=== PATIENT | male | born 1935 | race Caucasian/White ===

== ENCOUNTER → 2016-05-15 | Outpatient (CLI) | payer BC ==
[~2016-05-15] MED LIST: ASPCH81X PO; BCTCR/30 EX; CALC600T9; CALC600T9 PO; KETO2CRE14 EXT; LISI-725 PO; MULT-884 PO
[2016-05-15 09:01] LABS: BLOOD UREA NITROGEN 27 mg/dl (7-18); BUN/CREATININE RATIO 22.4 (10-20); CALCIUM 9.5 mg/dl (8.5-10.1); CARBON DIOXIDE 24 mmol/L (21-32); CHLORIDE 108 mmol/L (98-107); GLUCOSE 93 mg/dl (70-99); HEMATOCRIT 42.4 % (42-52); MEAN CELL VOLUME 95.1 fL (80-100); MEAN CORPUSCULAR HEMOGLOBIN 32.1 pg (25-34); MEAN CORPUSCULAR HGB CONC 33.7 g/dl (32-36); MEAN PLATELET VOLUME 10.8 fL (7.4-10.4); PLATELET COUNT 220 K/uL (130-400); RED BLOOD COUNT 4.46 M/uL (4.7-6.1); SODIUM 141 mmol/L (136-145); WHITE BLOOD COUNT 7.13 K/uL (4.8-10.8)
== END | disposition home or self-care (01) ==
LOC: C.LABFOXMH 08:23
PROVIDERS: ATTEND Internal Medicine
DX: N18.3 Chronic kidney disease, stage 3 (moderate) (principal)

== ENCOUNTER → 2016-10-10 | Outpatient (CLI) | payer BC ==
[2016-10-10 09:20] LABS: BLOOD UREA NITROGEN 19 mg/dl (7-18); BUN/CREATININE RATIO 14.9 (10-20); CALCIUM 9.5 mg/dl (8.5-10.1); CARBON DIOXIDE 26 mmol/L (21-32); CHLORIDE 108 mmol/L (98-107); GLUCOSE 88 mg/dl (70-99); POTASSIUM 4.6 mmol/L (3.5-5.1); SODIUM 139 mmol/L (136-145)
== END | disposition home or self-care (01) ==
LOC: C.LABFOXMH 08:36
PROVIDERS: ATTEND Internal Medicine
DX: I10 Essential (primary) hypertension (principal); R35.0 Frequency of micturition

== ENCOUNTER → 2017-02-10 | Outpatient (CLI) | payer BC | END | disposition home or self-care (01) | LOC: C.LABFOXMH 09:11 | PROVIDERS: ATTEND Nurse Practitioner Family | DX: R97.20 Elevated prostate specific antigen [PSA] (principal) ==

== ENCOUNTER → 2017-05-08 | Outpatient (CLI) | payer BC | END | disposition home or self-care (01) | LOC: C.LABSPEC 17:13 | PROVIDERS: ATTEND Physician Assistant | DX: Z85.828 Personal history of other malignant neoplasm of skin (principal) ==

== ENCOUNTER → 2017-05-15 | Outpatient (CLI) | payer BC ==
[2017-05-15 08:52] LABS: BLOOD UREA NITROGEN 23 mg/dl (7-18); CALCIUM 9.5 mg/dl (8.5-10.1); CARBON DIOXIDE 27 mmol/L (21-32); CREATININE 1.29 mg/dl (0.60-1.40); GLUCOSE 105 mg/dl (70-99); POTASSIUM 4.5 mmol/L (3.5-5.1); SODIUM 137 mmol/L (136-145)
== END | disposition home or self-care (01) ==
LOC: C.LABFOXMH 08:13
PROVIDERS: ATTEND Internal Medicine Hospice and Palliative Medicine
DX: R97.20 Elevated prostate specific antigen [PSA] (principal)

== ENCOUNTER → 2017-11-04 | Outpatient (CLI) | payer BC ==
--- NOTE | 2017-11-04 13:57 | DIAGNOSTIC IMAGING REPORT ---
L-SPINE MIN 4 VIEWS ROUTINE HISTORY: Pain LOW BACK PAIN COMPARISON: None. FINDINGS: There is no fracture. Significant degenerative disc change throughout. Moderate anterior and anterolateral osteophytic change throughout. IMPRESSION: Degenerative change throughout the entire lumbar region. No acute bony abnormality. The above report was generated using voice recognition software. It may contain grammatical, syntax or spelling errors. Electronically signed by: Sánchez Carlson M.D. 11/04/2017 1:55 PM Dictated Date/Time: 11/04/2017 1:54 PM
== END | disposition home or self-care (01) ==
LOC: C.RAD 13:28
PROVIDERS: ATTEND Internal Medicine
DX: M47.816 Spondylosis without myelopathy or radiculopathy, lumbar region (principal)

== ENCOUNTER 2019-06-02 18:23 | Inpatient (IN) ==
[2019-06-02] MEDS ORDERED: SODIUM CHLORIDE 0.9% 1000ML 1,000 ML IV ONE (18:56)
[2019-06-02] MEDS ORDERED: ALBUT/IPRATROP 3MG/0.5MG NEB 3 ML VIAL NEB ONE (18:56)
--- NOTE | 2019-06-02 19:12 | XRay Report ---
XR chest 1V portable CLINICAL HISTORY: SEPSIS dyspnea COMPARISON STUDY: 06/02/2019 FINDINGS: Interstitial parenchymal infiltrative changes left mid to lower lung. Several old left-side d rib fractures. Right lung is clear. There are no consolidative infiltrative changes. IMPRESSION: Interstitial infiltrate left lung base. ACT 112: Negative or not required by law. The above report was generated using voice recognition software. It may contain grammatical, syntax or spelling errors. Electronically signed by: Sánchez Carlson M.D. 06/02/2019 7:11 PM
[2019-06-02 19:55] LABS: Basophils # (auto) 0.01 K/uL (0-0.2); Basophils % (auto) 0.1 %; Eosinophils # (auto) 0.22 K/uL (0-0.5); Eosinophils % (auto) 2.8 %; Hematocrit (blood only) 38.7 % (42-52); Hemoglobin 12.7 g/dL (14.0-18.0); Immature Granulocytes # (auto) 0.06 K/uL (0.00-0.02); Immature Granulocytes % (auto) 0.8 %; Lymphocytes # (auto) 1.26 K/uL (1.2-3.4); Lymphocytes % (auto) 16.3 %; Mean Corpuscular Hgb Conc 32.8 g/dL (32-36); Mean Corpuscular Volume 94.4 fL (80-100); Mean Platelet Volume 10.8 fL (7.4-10.4); Monocytes # (auto) 0.77 K/uL (0.11-0.59); Monocytes % (auto) 9.9 %; Neutrophils # (auto) 5.42 K/uL (1.4-6.5); Neutrophils % (auto) 70.1 %; Platelet Count 277 K/uL (130-400); RDW Coefficient of Variation 13.6 % (11.5-14.5); White Blood Count 7.74 K/uL (4.8-10.8)
[2019-06-02 19:58] LABS: Alanine Aminotransferase 20 U/L (12-78); Albumin Level 3.2 gm/dl (3.4-5.0); Aspartate Aminotransferase 13 U/L (15-37); BUN Creatinine Ratio 17.6 (10-20); Blood Urea Nitrogen 29 mg/dl (7-18); Calcium 9.6 mg/dl (8.5-10.1); Carbon Dioxide 27 mmol/L (21-32); Chloride 107 mmol/L (98-107); Creatinine Clr Calc Pharmacy 33.5 ml/min; Est GFR (African American) 43.2; Est GFR (Non-African American) 37.3; Glucose 109 mg/dl (70-99); Magnesium 2.4 mg/dl (1.8-2.4); Potassium 4.1 mmol/L (3.5-5.1); Sodium 139 mmol/L (136-145)
[2019-06-02 20:06] LABS: Albumin Globulin Ratio 0.9 (0.9-2); Alkaline Phosphatase 74 U/L (45-117); Bilirubin,Total 0.9 mg/dl (0.2-1); Globulin 3.6 gm/dl (2.5-4.0); Total Protein 6.8 gm/dl (6.4-8.2); Troponin I < 0.015 ng/ml (0-0.045)
[2019-06-02 20:13] LABS: Influenza A virus by PCR Neg for Influ A (Neg); Influenza B virus by PCR Neg for Influ B (Neg)
[2019-06-02] MEDS ORDERED: OPTIRAY 320 125ml IV PRN (20:13)
[2019-06-02 20:15] LABS: INR 1.1 (0.9-1.1); Partial Thromboplastin Ratio 0.9; Partial Thromboplastin Time 23.6 Seconds (21.0-31.0); Prothrombin Time 10.8 Seconds (9.0-12.0)
--- NOTE | 2019-06-02 20:31 | CT Scan Report ---
CT angio chest PE protocol CT DOSE: 334.49 mGy.cm HISTORY: Chest pain. Dyspnea. Cough. PE TECHNIQUE: Multiaxial CT images of the chest were performed following the intravenous administration of contrast to evaluate the pulmonary arteries. Maximal intensity projection images were also obtaine d. A dose lowering technique was utilized adhering to the principles of ALARA. COMPARISON STUDY: None. FINDINGS: Slight prominence of the aortic root at 3.8 cm. No evidence for dissection. The pulmonary vasculature enhances appropriately. There are no major filling defects. Evaluation of t he lung parenchyma shows mild bibasilar atelectatic and/or infiltrative change. There is mild interst itial prominence of the right upper as well as left upper lobe medially anterior to the major fissure . There are no true consolidative infiltrates. There are moderate degenerative changes of the thoracic spine. IMPRESSION: 1. No evidence for pulmonary embolus. 2. Mild bibasilar parenchymal infiltrative and/or atelectatic change. 3. Minimal interstitial infiltrative changes of the upper lungs. 4. There are no consolidative infiltrates. ACT 112: Negative or not required by law. The above report was generated using voice recognition software. It may contain grammatical, syntax or spelling errors. Electronically signed by: Sánchez Carlson M.D. 06/02/2019 8:29 PM
[2019-06-02] MEDS ORDERED: LEVOFLOXACIN/D5W 750 MG/150 ML BAG IV STA (20:43)
--- NOTE | 2019-06-02 21:55 | History & Physical Report ---
Date of Service June 02, 2019 Assessment & Plan (1) Pneumonia: Bibasilar pneumonia- Placed on ceftriaxone 1 g IV daily and levofloxacin 500 mg IV daily. Duonebs every 4 hours while awake and every 2 hours when necessary. Solu-Medrol 40 mg IV every 8 hours. Guaifenesin extended release 600 mg p.o. twice daily Sputum Gram stain and culture Present on Admission?: Yes (2) Hypertension: Hold lisinopril. Present on Admission?: Yes (3) BPH w urinary obs/LUTS: Continue finasteride and tamsulosin.. Present on Admission?: Yes History of Present Illness Chief Complaint: The patient presents to the emergency department with 2 weeks of progressively worsening cough and shortness of breath, being referred by his PCP to the ED when he called and reported symptoms today. Primary Care Provider: Tamiko Carmona The patient is a 83-year-old male with a past medical history including hypertension, BPH with LUTS, squamous cell skin cancer, and basal cell skin skin cancer. He presents to the emergency department with 2 weeks of progressively worsening cough and shortness of breath. He was referred to the ED by his PCP when informed of the patient's symptoms. Allergies Allergy/AdvReac Type Severity Reaction Status Date / Time No Known Allergies Allergy Verified 06/02/19 19:23 Home Medications Home Medications Medication Instructions Recorded Confirmed Type cholecalciferol (vitamin D3) 50 2,000 unit PO QAM tab 10/22/18 06/02/19 History mcg (2,000 unit) tablet finasteride 5 mg tablet 5 mg PO QAM #90 tab 05/28/19 06/02/19 History aspirin 81 mg PO DAILY 06/02/19 06/02/19 History lisinopril 5 mg PO QAM 06/02/19 06/02/19 History magnesium 200 mg PO HS 06/02/19 06/02/19 History tamsulosin 0.4 mg PO HS 06/02/19 06/02/19 History Past Med/Surg History Medical History History of basal cell carcinoma History of SCC (squamous cell carcinoma) of skin Social History Preferred Language: Bulgarian Communication Ability: Effective Correctional Classification Counselor Required: No Beliefs That Will Affect Care: None Current Living Situation: Spouse Other Information That Helps Us Care for You: No Feels Safe at Home: Yes Safety Concerns: Feels Safe At This Time Smoking Status: Former smoker Tobacco Type: cigarettes and pipe ; Hx Alcohol Use: Yes Alcohol type: beer, wine and hard liquor Hx Substance Use: No Review of Systems Review of Systems: The patient denies chest pain, palpitations, lower extremity swelling, sore throat, fevers, chills, sweats, nausea, vomiting, diarrhea , constipation, abdominal pain, pelvic pain, blood in urine or stool, dysuria, urinary frequency or urgency, lightheadedness, dizziness, headache, memory loss, loss of consciousness, rash, abnormal bruising or bleeding, imbalance, focal or generalized weakness, numbness or tingling in arms or legs, generalized arthralgias or myalgias, back or neck pain, or night sweats. The review of systems is otherwise negative other than for that already noted above, and at least 10 systems have been reviewed. Physical Exam Physical Exam: The patient is awake, alert and oriented 3, well developed and well nourished, normocephalic and atraumatic, lying in bed and in no acute distress. HEENT--PERRL, EOMI, mucous membranes and oropharynx dry. Neck--supple. No JVD. No bruits. Thyroid normal, trachea midline, no adenopathy. Heart--normal S1 and S2. No murmurs, rubs or gallops. Lungs--coarse breath sounds bilaterally with scattered wheezes. No respiratory distress, no accessory muscle use. Abdomen--normal bowel sounds and soft. Nontender. Nondistended, no hernias or masses, no organomegaly. Extremities--no cyanosis or clubbing. No edema. There are good distal pulses b/l. Dermatologic--normal skin turgor, normal color, no abnormal lymph nodes, no rash. Neurologic--cranial nerves II through XII grossly intact. Rheumatologic--normal range of motion. Psychiatric--normal affect. Results & Data Vital Signs (Past 12 Hours) Vital Signs Temp Pulse Pulse Resp BP BP Pulse Ox 06/02/19 20:25 101 H 21 154/82 H 99 06/02/19 19:57 88 21 136/70 98 06/02/19 19:36 75 22 94 06/02/19 19:31 75 19 119/84 97 06/02/19 18:28 98.2 F 68 20 131/67 96 Laboratory Results Laboratory Results WBC 7.74 K/uL (4.8-10.8) 06/02/19 19:10 RBC 4.10 M/uL (4.7-6.1) L 06/02/19 19:10 Hgb 12.7 g/dL (14.0-18.0) L 06/02/19 19:10 Hct 38.7 % (42-52) L 06/02/19 19:10 MCV 94.4 fL (80-100) 06/02/19 19:10 MCH 31.0 pg (25-34) 06/02/19 19:10 MCHC 32.8 g/dL (32-36) 06/02/19 19:10 RDW Std Deviation 47.0 fL (36.4-46.3) H 06/02/19 19:10 RDW Coeff of Ramy 13.6 % (11.5-14.5) 06/02/19 19:10 Plt Count 277 K/uL (130-400) 06/02/19 19:10 MPV 10.8 fL (7.4-10.4) H 06/02/19 19:10 Immature Gran % (Auto) 0.8 % 06/02/19 19:10 Neut % (Auto) 70.1 % 06/02/19 19:10 Lymph % (Auto) 16.3 % 06/02/19 19:10 [place] % (Auto) 9.9 % 06/02/19 19:10 Eos % (Auto) 2.8 % 06/02/19 19:10 Baso % (Auto) 0.1 % 06/02/19 19:10 Immature Gran # (Auto) 0.06 K/uL (0.00-0.02) H 06/02/19 19:10 Neut # (Auto) 5.42 K/uL (1.4-6.5) 06/02/19 19:10 Lymph # (Auto) 1.26 K/uL (1.2-3.4) 06/02/19 19:10 [place] # (Auto) 0.77 K/uL (0.11-0.59) H 06/02/19 19:10 Eos # (Auto) 0.22 K/uL (0-0.5) 06/02/19 19:10 Baso # (Auto) 0.01 K/uL (0-0.2) 06/02/19 19:10 PT 10.8 Seconds (9.0-12.0) 06/02/19 19:10 INR 1.1 (0.9-1.1) 06/02/19 19:10 APTT 23.6 Seconds (21.0-31.0) 06/02/19 19:10 PTT Ratio 0.9 06/02/19 19:10 Sodium 139 mmol/L (136-145) 06/02/19 19:10 Potassium 4.1 mmol/L (3.5-5.1) 06/02/19 19:10 Chloride 107 mmol/L (98-107) 06/02/19 19:10 Carbon Dioxide 27 mmol/L (21-32) 06/02/19 19:10 Anion Gap 5.0 (3-11) 06/02/19 19:10 BUN 29 mg/dl (7-18) H 06/02/19 19:10 Creatinine 1.67 mg/dl (0.6-1.4) H 06/02/19 19:10 Est Cr Clr Drug Dosing 33.5 ml/min 06/02/19 19:10 Est GFR ( Amer) 43.2 06/02/19 19:10 Est GFR (Non-Af Amer) 37.3 06/02/19 19:10 BUN/Creatinine Ratio 17.6 (10-20) 06/02/19 19:10 Glucose 109 mg/dl (70-99) H 06/02/19 19:10 Lactate 1.7 mmol/L (0.4-2.0) 06/02/19 19:20 Calcium 9.6 mg/dl (8.5-10.1) 06/02/19 19:10 Magnesium 2.4 mg/dl (1.8-2.4) 06/02/19 19:10 Total Bilirubin 0.9 mg/dl (0.2-1) 06/02/19 19:10 AST 13 U/L (15-37) L 06/02/19 19:10 ALT 20 U/L (12-78) 06/02/19 19:10 Alkaline Phosphatase 74 U/L (45-117) 06/02/19 19:10 Troponin I < 0.015 ng/ml (0-0.045) 06/02/19 19:10 Total Protein 6.8 gm/dl (6.4-8.2) 06/02/19 19:10 Albumin 3.2 gm/dl (3.4-5.0) L 06/02/19 19:10 Globulin 3.6 gm/dl (2.5-4.0) 06/02/19 19:10 Albumin/Globulin Ratio 0.9 (0.9-2) 06/02/19 19:10 Procalcitonin 0.46 ng/ml (0-0.5) 06/02/19 19:10 Influenza Type A (PCR) Neg for Influ A (Neg) 06/02/19 19:17 Influenza Type B (PCR) Neg for Influ B (Neg) 06/02/19 19:17 Diagnostic Findings [place], [place] [phone] XRay Report Patient: ROLANDA TELLO Date: 06/02/19 MR#: [id number]: [address] Acct ID:[id number]: [place] [facility] Zip[facility] [place] [address] Age: 83Location: RAD1 Sex: M Room/Bed: Att Phy: Briana Hill CRNPDiagnosis: R53.83, COUGH Bella Phy: Estelle Kwonervice Date: 06/02/19 Fam Phy:Interpreting Phy: Carlos Manuel Razo MD Admit Phy: Ordering Phy: Briana Hill CRNP cc: ~ XR chest 2V PA/lateral CLINICAL HISTORY: COUGH FATIGUE COMPARISON STUDY: None FINDINGS: The heart is normal in size. There is no failure. There is no lobar consolidation. There are old left-sided rib deformities. There is minor blunting of the lateral costophrenic angles. Slight increase in markings visualized towards the left lung base, may represent a summation with underlying rib deformities.[ IMPRESSION: 1. Nonspecific subtle increase in left mid to lower lung zone markings a finding which may represent a summation with underlying right rib deformities. 2. No evidence of failure. No evidence of lobar consolidation. ACT 112: Negative or not required by law. Electronically signed by: Carlos Mnauel Razo M.D. 06/02/2019 2:03 PM Dictated: 06/02/19 1400 Transcribed: 06/02/19 1400 [facility] [place] [phone] CT Scan Report Patient: ROLANDA TELLO Date: 06/02/19 MR#: [id number]: [address] Acct ID:[id number]: [facility] Date: [address]City Zip: [place] [address] Age: 83Location: ED Sex: M Room/Bed: Att Phy:Diagnosis: LIGHTHEADED, COUGHING, FEVER Bella Phy: Estelle Kwonervice Date: 06/02/19 Fam Phy:Interpreting Phy: Sánchez Carlson MD Admit Phy: Ordering Phy: Vijay Gandhi MD cc: ~ CT angio chest PE protocol CT DOSE: 334.49 mGy.cm HISTORY: Chest pain. Dyspnea. Cough. PE TECHNIQUE: Multiaxial CT images of the chest were performed following the intravenous administration of contrast to evaluate the pulmonary arteries. Maximal intensity projection images were also obtained. A dose lowering technique was utilized adhering to the principles of ALARA. COMPARISON STUDY: None. FINDINGS: Slight prominence of the aortic root at 3.8 cm. No evidence for dissection. The pulmonary vasculature enhances appropriately. There are no major filling defects. Evaluation of the lung parenchyma shows mild bibasilar atelectatic and/or infiltrative change. There is mild interstitial prominence of the right upper as well as left upper lobe medially anterior to the major fissure. There are no true consolidative infiltrates. There are moderate degenerative changes of the thoracic spine. IMPRESSION: 1. No evidence for pulmonary embolus. 2. Mild bibasilar parenchymal infiltrative and/or atelectatic change. 3. Minimal interstitial infiltrative changes of the upper lungs. 4. There are no consolidative infiltrates. ACT 112: Negative or not required by law. The above report was generated using voice recognition software. It may contain grammatical, syntax or spelling errors. Electronically signed by: Sánchez Carlson M.D. 06/02/2019 8:29 PM Dictated: 06/02/192025 Transcribed: 06/02/192025 [facility] [place] [phone] XRay Report Patient: ROLANDA TELLO Date: 06/02/19 MR#: [id number]: [address] Acct ID:[id number]: [place] [facility] Zip: [place] [address] Age: 83Location: ED Sex: M Room/Bed: Att Phy:Diagnosis: LIGHTHEADED, COUGHING, FEVER Bella Phy: Estelle Kwonervice Date: 06/02/19 Fam Phy:Interpreting Phy: Sánchez Carlson MD Admit Phy: Ordering Phy: Vijay Gandhi MD cc: ~ XR chest 1V portable CLINICAL HISTORY: SEPSIS dyspnea COMPARISON STUDY: 06/02/2019 FINDINGS: Interstitial parenchymal infiltrative changes left mid to lower lung. Several old left-sided rib fractures. Right lung is clear. There are no consolidative infiltrative changes. IMPRESSION: Interstitial infiltrate left lung base. ACT 112: Negative or not required by law. The above report was generated using voice recognition software. It may contain grammatical, syntax or spelling errors. Electronically signed by: Sánchez Carlson M.D. 06/02/2019 7:11 PM Dictated: 06/02/191910 Transcribed: 06/02/191910 Code Status & VTE Plan Code Status Full code VTE Prophylaxis Plan VTE Prophylaxis will be ordered: Yes PG Care Time/CCT Total # of Minutes Spent Total Time Spent with Patient: Total time spent is greater than 50% in coordination of care (as documented) at patient's floor/unit and/or counseling patient: Coding Level of Care Code 93947 Initial Inpt Care Lvl 3 Diagnoses Pneumonia J18.9 Laterality: unspecified laterality Lung location: unspecified part of lung Pneumonia type: due to unspecified organism Hypertension I10 BPH w urinary obs/LUTS N40.1; N13.8 (1) Pneumonia Laterality: unspecified laterality Lung location: unspecified part of lung Pneumonia type: due to unspecified organism Qualified Code(s): J18.9 - Pneumonia, unspecified organism
[2019-06-02] MEDS ORDERED: ALUMINUM/MAGNESIUM SUSP 30 ML UDC PO PRN (23:03)
[2019-06-02] MEDS ORDERED: ACETAMINOPHEN 325 MG TAB PO PRN (23:03)
[2019-06-02] MEDS ORDERED: ONDANSETRON INJ 2 MG/ML 2 ML VIAL IV PRN (23:03)
[2019-06-02] MEDS ORDERED: MAGNESIUM HYDROXIDE SUSP 30 ML UDC PO PRN (23:03)
--- NOTE | 2019-06-02 23:06 | Emergency Department Note ---
History of Present Illness General Chief complaint: Illness Stated complaint: LIGHTHEADED, COUGHING, FEVER Time Seen by Provider: 06/02/19 18:46 Source: patient, family, RN notes reviewed and old records reviewed Mode of arrival: ambulatory Limitations: no limitations History of Present Illness Provider complaint: weakness Onset (ago): week(s) 2 Location: lower extremity Radiation: non-radiation Severity: moderate Associated symptoms: + confusion Treatments prior to arrival: other (Rocephin IM, Prednisone 40) This is an 83-year-old male sent in by his primary care physician's office over concerns that he has been feeling weak. Patient had a chest x-ray as well as laboratory work. He does have an elevation in his white blood cell count as an outpatient however was given Rocephin as well as prednisone. The patient reports he has been feeling weak for the past 2 weeks. He reports a cough that has been ongoing during that time. He has not been taking anything at home but has not been getting any better. Home Medications Home Medications Medication Instructions Recorded Confirmed Type cholecalciferol (vitamin D3) 50 2,000 unit PO QAM tab 10/22/18 06/02/19 History mcg (2,000 unit) tablet finasteride 5 mg tablet 5 mg PO QAM #90 tab 05/28/19 06/02/19 History aspirin 81 mg PO DAILY 06/02/19 06/02/19 History lisinopril 5 mg PO QAM 06/02/19 06/02/19 History magnesium 200 mg PO HS 06/02/19 06/02/19 History tamsulosin 0.4 mg PO HS 06/02/19 06/02/19 History Allergies Allergy/AdvReac Type Severity Reaction Status Date / Time No Known Allergies Allergy Verified 06/02/19 19:23 Past Med/Surg History Medical History History of basal cell carcinoma History of SCC (squamous cell carcinoma) of skin Social History Feels Safe at Home: Yes Smoking Status: Former smoker Review of Systems A total of 10 systems reviewed and were otherwise negative Physical Exam Vital Signs Vital Signs - 24 hr 06/02/19 18:28 06/02/19 19:31 06/02/19 19:36 Temperature 36.8 C Temperature Source Oral Pulse Rate 68 Pulse Rate [Right Finger] 75 75 Respiratory Rate 20 19 22 Respiratory Effort / Characteristics Non-Labored Spontaneous Blood Pressure 131/67 Blood Pressure [Right Arm] 119/84 Blood Pressure Mean 88 Blood Pressure Mean [Right Arm] 95 Blood Pressure Position Sitting Pulse Oximetry 96 97 94 Oxygen Delivery Method Room Air Room Air Sepsis Recent Fever Within 48 Hours No Sepsis Action Taken by Nursing No Action Required 06/02/19 19:57 06/02/19 20:25 Temperature Temperature Source Pulse Rate Pulse Rate [Right Finger] 88 101 H Respiratory Rate 21 21 Respiratory Effort / Characteristics Blood Pressure Blood Pressure [Right Arm] 136/70 154/82 H Blood Pressure Mean Blood Pressure Mean [Right Arm] 92 106 Blood Pressure Position Pulse Oximetry 98 99 Oxygen Delivery Method Nebulizer Nebulizer Sepsis Recent Fever Within 48 Hours Sepsis Action Taken by Nursing GENERAL: Patient is a healthy-appearing well-nourished HEAD: Normocephalic atraumatic EYES: Ocular movements intact pupils equal and react to light OROPHARYNX mucous membranes are moist no exudates present no erythema or edema present NECK: Supple no nuchal rigidity CHEST: Good equal expansion LUNGS: Clear and equal to auscultation CARDIAC: Normal S1 and S2 ABDOMEN: Soft nontender no guarding BACK: No CVA tenderness EXTREMITIES: No pain upon palpation normal muscle strength in all groups no clubbing cyanosis or edema NEURO: Patient is following commands is answering questions appropriately. Alert and oriented x3 Cranial Nerves 2-12 grossly intact Course Administered Medications Ioversol (Optiray 320 125ml) 118 ml IV ONCE PRN PRN Reason: Interaction Checking Stop: 06/06/19 20:12 Last Admin: 06/02/19 20:13 Dose: 118 ml Documented by: [id number] Discontinued Medications Albuterol (Duoneb) 12 ml NEB ONE ONE Stop: 06/02/19 18:57 Last Admin: 06/02/19 19:33 Dose: 12 ml Documented by: [id number] Sodium Chloride (Nss 1000ml) 1,000 mls @ 999 mls/hr IV .Q1H1M ONE Stop: 06/02/19 19:56 Last Infusion: 06/02/19 20:24 Dose: 0 mls/hr Documented by: [id number] Admin: 06/02/19 19:22 Dose: 999 mls/hr Documented by: [id number] Levofloxacin/Dextrose (Levaquin/D5w) 750 mg in 150 mls @ 100 mls/hr IV NOW STA Stop: 06/02/19 22:12 Last Infusion: 06/02/19 22:09 Dose: 0 mls/hr Documented by: [id number] Admin: 06/02/19 20:54 Dose: 100 mls/hr Documented by: [id number] Medical Decision Making Differential Diagnosis My differential diagnosis includes but is not limited to urinary tract in fection, pneumonia, influenza, electrolyte abnormality, Medical Records Attestation: I reviewed the patient's medical records. Home Medications Current Medication List: was personally reviewed by me Laboratory Data Attestation: I reviewed the patient's lab results. Result diagrams: 06/02/19 19:10 06/02/19 19:10 Lab Results 06/02/19 06/02/19 06/02/19 Range/Units 19:10 19:10 19:10 WBC 7.74 (4.8-10.8) K/uL RBC 4.10 L (4.7-6.1) M/uL Hgb 12.7 L (14.0-18.0) g/dL Hct 38.7 L (42-52) % MCV 94.4 (80-100) fL MCH 31.0 (25-34) pg MCHC 32.8 (32-36) g/dL RDW Std Deviation 47.0 H (36.4-46.3) fL RDW Coeff of Ramy 13.6 (11.5-14.5) % Plt Count 277 (130-400) K/uL MPV 10.8 H (7.4-10.4) fL Immature Gran % (Auto) 0.8 % Neut % (Auto) 70.1 % Lymph % (Auto) 16.3 % [place] % (Auto) 9.9 % Eos % (Auto) 2.8 % Baso % (Auto) 0.1 % Immature Gran # (Auto) 0.06 H (0.00-0.02) K/uL Neut # (Auto) 5.42 (1.4-6.5) K/uL Lymph # (Auto) 1.26 (1.2-3.4) K/uL [place] # (Auto) 0.77 H (0.11-0.59) K/uL Eos # (Auto) 0.22 (0-0.5) K/uL Baso # (Auto) 0.01 (0-0.2) K/uL PT 10.8 (9.0-12.0) Seconds INR 1.1 (0.9-1.1) APTT 23.6 (21.0-31.0) Seconds PTT Ratio 0.9 Sodium 139 (136-145) mmol/L Potassium 4.1 (3.5-5.1) mmol/L Chloride 107 (98-107) mmol/L Carbon Dioxide 27 (21-32) mmol/L Anion Gap 5.0 (3-11) BUN 29 H (7-18) mg/dl Creatinine 1.67 H (0.6-1.4) mg/dl Est Cr Clr Drug Dosing 33.5 ml/min Est GFR ( Amer) 43.2 Est GFR (Non-Af Amer) 37.3 BUN/Creatinine Ratio 17.6 (10-20) Glucose 109 H (70-99) mg/dl Lactate (0.4-2.0) mmol/L Calcium 9.6 (8.5-10.1) mg/dl Magnesium 2.4 (1.8-2.4) mg/dl Total Bilirubin 0.9 (0.2-1) mg/dl AST 13 L (15-37) U/L ALT 20 (12-78) U/L Alkaline Phosphatase 74 (45-117) U/L Troponin I < 0.015 (0-0.045) ng/ml Total Protein 6.8 (6.4-8.2) gm/dl Albumin 3.2 L (3.4-5.0) gm/dl Globulin 3.6 (2.5-4.0) gm/dl Albumin/Globulin Ratio 0.9 (0.9-2) Procalcitonin (0-0.5) ng/ml Influenza Type A (PCR) (Neg) Influenza Type B (PCR) (Neg) 06/02/19 06/02/19 06/02/19 Range/Units 19:10 19:17 19:20 WBC (4.8-10.8) K/uL RBC (4.7-6.1) M/uL Hgb (14.0-18.0) g/dL Hct (42-52) % MCV (80-100) fL MCH (25-34) pg MCHC (32-36) g/dL RDW Std Deviation (36.4-46.3) fL RDW Coeff of Ramy (11.5-14.5) % Plt Count (130-400) K/uL MPV (7.4-10.4) fL Immature Gran % (Auto) % Neut % (Auto) % Lymph % (Auto) % [place] % (Auto) % Eos % (Auto) % Baso % (Auto) % Immature Gran # (Auto) (0.00-0.02) K/uL Neut # (Auto) (1.4-6.5) K/uL Lymph # (Auto) (1.2-3.4) K/uL [place] # (Auto) (0.11-0.59) K/uL Eos # (Auto) (0-0.5) K/uL Baso # (Auto) (0-0.2) K/uL PT (9.0-12.0) Seconds INR (0.9-1.1) APTT (21.0-31.0) Seconds PTT Ratio Sodium (136-145) mmol/L Potassium (3.5-5.1) mmol/L Chloride (98-107) mmol/L Carbon Dioxide (21-32) mmol/L Anion Gap (3-11) BUN (7-18) mg/dl Creatinine (0.6-1.4) mg/dl Est Cr Clr Drug Dosing ml/min Est GFR ( Amer) Est GFR (Non-Af Amer) BUN/Creatinine Ratio (10-20) Glucose (70-99) mg/dl Lactate 1.7 (0.4-2.0) mmol/L Calcium (8.5-10.1) mg/dl Magnesium (1.8-2.4) mg/dl Total Bilirubin (0.2-1) mg/dl AST (15-37) U/L ALT (12-78) U/L Alkaline Phosphatase (45-117) U/L Troponin I (0-0.045) ng/ml Total Protein (6.4-8.2) gm/dl Albumin (3.4-5.0) gm/dl Globulin (2.5-4.0) gm/dl Albumin/Globulin Ratio (0.9-2) Procalcitonin 0.46 (0-0.5) ng/ml Influenza Type A (PCR) Neg for Influ A (Neg) Influenza Type B (PCR) Neg for Influ B (Neg) Imaging Data Radiologist's Impression: Patient: ROLANDA TELLO Date: 06/02/19 MR#: [id number]: [address] Acct ID:[id number]: [facility] Zip: [place] [address] Age: 83Location: ED Sex: M Room/Bed: Att Phy:Diagnosis: LIGHTHEADED, COUGHING, FEVER Bella Phy: Estelle Kwonervice Date: 06/02/19 Fam Phy:Interpreting Phy: Sánchez Carlson MD Admit Phy: Ordering Phy: Vijay Gandhi MD cc: ~ CT angio chest PE protocol CT DOSE: 334.49 mGy.cm HISTORY: Chest pain. Dyspnea. Cough. PE TECHNIQUE: Multiaxial CT images of the chest were performed following the intravenous administration of contrast to evaluate the pulmonary arteries. Maximal intensity projection images were also obtained. A dose lowering te chnique was utilized adhering to the principles of ALARA. COMPARISON STUDY: None. FINDINGS: Slight prominence of the aortic root at 3.8 cm. No evidence for dissection. The pulmonary vasculature enhances appropriately. There are no major filling defects. Evaluation of the lung parenchyma shows mild bibasilar atelectatic and/or infiltrative change. There is mild interstitial prominence of the right upper as well as left upper lobe medially anterior to the major fissure. There are no true consolidative infiltrates. There are moderate degenerative changes of the thoracic spine. IMPRESSION: 1. No evidence for pulmonary embolus. 2. Mild bibasilar parenchymal infiltrative and/or atelectatic change. 3. Minimal interstitial infiltrative changes of the upper lungs. 4. There are no consolidative infiltrates. ACT 112: Negative or not required by law. The above report was generated using voice recognition software. It may contain grammatical, syntax or spelling errors. Electronically signed by: Sánchez Carlson M.D. 06/02/2019 8:29 PM Dictated: 06/02/192025 Transcribed: 06/02/192025 [place], [place] [phone] XRay Report Patient: ROLANDA TELLO Date: 06/02/19 MR#: [id number]: [id number] Acct ID:[id number]: [facility] Date: 6City Zip: [place] [address] Age: 83Location: ED Sex: M Room/Bed: Att Phy:Diagnosis: LIGHTHEADED, COUGHING, FEVER Bella Phy: Estelle Kwonervice Date: 06/02/19 Fam Phy:Interpreting Phy: Sánchez Carlson MD Admit Phy: Ordering Phy: Vijay Gandhi MD cc: ~ XR chest 1V portable CLINICAL HISTORY: SEPSIS dyspnea COMPARISON STUDY: 06/02/2019 FINDINGS: Interstitial parenchymal infiltrative changes left mid to lower lung. Several old left-sided rib fractures. Right lung is clear. There are no consolidative infiltrative changes. IMPRESSION: Interstitial infiltrate left lung base. ACT 112: Negative or not required by law. The above report was generated using voice recognition software. It may contain grammatical, syntax or spelling errors. Electronically signed by: Sánchez Carlson M.D. 06/02/2019 7:11 PM Dictated: 06/02/191910 Transcribed: 06/02/191910 ECG Data Attestation: I personally reviewed and interpreted this ECG as follows: Indication: + altered mental status Rate (beats per minute): 79 Rhythm: + normal sinus ECG Intervals/blocks: + Normal QT and + Normal QT-c (442) ECG [place]: + Normal ECG ST segments: no ST depression and no ST elevation Blood Pressure Blood Pressure Findings: Normal blood pressure MDM Narrative This is an 83-year-old male who was sent in by his primary care physician's office over increasing confusion. The patient had laboratory work performed on the outpatient. He is negative for flu here however his BUN and creatinine are elevated. He appears to have pneumonia on the CAT scan of his chest. He was given an hour-long breathing treatment pancultured and started on broad-spectrum antibiotics. I did discuss the case with the hospitalist service who did agree to admit the patient. "Cardiac monitoring: An order was placed for continuous cardiac monitoring. The monitor shows a rate of 80 with NSR rhythm." Impression & Plan Altered mental status, Pneumonia Discharge Plan Visit Data Chief Complaint: Illness Stated Complaint: LIGHTHEADED, COUGHING, FEVER ED Provider: Vijay Gandhi Discharge Problem: Altered mental status, Pneumonia Discharge Instructions Interventions: ED Discharge Assessment Last Done: 06/02/19 22:14 Discharge Problem: Altered mental status Qualifiers: Altered mental status type: unspecified Qualified Code(s): R41.82 - Altered mental status, unspecified Pneumonia Qualifiers: Pneumonia type: due to unspecified organism Laterality: unspecified laterality Lung location: unspecified part of lung Qualified Code(s): J18.9 - Pneumonia, unspecified organism
[2019-06-03] MEDS: methylPREDNISolone 40 MG in SYRINGE 0 ML IV SCH ×4 (00:49→20:50)
[2019-06-03 06:05] LABS: Appearance Urine Clear (Clear); Bilirubin Urine Negative (Negative); Blood Urine Negative (Negative); Color Urine Yellow; Glucose Urine UA Negative (Negative); Ketones Urine Negative (Negative); Leukocyte Esterase Urine Negative (Negative); Nitrite Urine Negative (Negative); Protein Urine Negative (Negative); Specific Gravity Urine <= 1.005 (1.000-1.030); Urobilinogen Urine Negative (Negative)
[2019-06-03] MEDS: ALBUT/IPRATROP 3MG/0.5MG NEB 3 ML VIAL NEB SCH ×4 (07:21→20:34)
--- NOTE | 2019-06-03 07:52 | Hospitalist Progress Note ---
Date of Service June 03, 2019 Assessment & Plan (1) Pneumonia: Mr. Onel Davenport is a 83 y/o male with past medical hx of SCC, BCC, BPH who presented with history of viral URI/possible influenza that progressed to superimposed bilateral bibasilar pneumonia vs. Aspiration pneumonia. - Was started on ceftriaxone 1 g IV daily and levofloxacin 500 mg IV, but wished to avoid tenopathy from Fluoroquinolone and wanted monotherapy. Discontinued both Ceftriaxone and Levofloxacin. MRSA swab was negative. Since, history also supporting possible Aspiration Pneumonia, will start on Unasyn 3gm IV q6h. - Currently not requiring any supplemental O2 - Duonebs every 4 hours while awake and every 2 hours when necessary. - Solu-Medrol 40 mg IV every 8 hours. - Guaifenesin extended release 600 mg p.o. twice daily - Sputum Gram stain and culture Code: Full Code FENGI: Regular Diet, NSS 125mL/hr, Pepcid 20mg PO BID since on steroids. DVT ppx: Heparin Dipso: Med/surg tele; expect discharge either tomorrow or over weekend depending on clinical improvement. (2) Weakness on right side of face: Doesn't appear acute and noted to have drooling for over a year. Will get swallowing study, consulted [facility]. (3) NADINE (acute kidney injury): Baseline Creat appears to be 1.3. Here it is 1.67. Hold Lisinopril. Monitor Is & Os. Will start on gentle but adequate IV fluids at NSS 125mL/hr Is tachycardic and afebrile, suspect from hypovolumemia also supporting IV fluids. Will follow. Trend in AM (4) Hypertension: Hold lisinopril. (5) BPH w urinary obs/LUTS: Continue finasteride and tamsulosin. Admission and Anticipated Discharge Date Admission Date: June 02, 2019 Supervising Physician Co-Signing Physician Notes Attending attestation Pt seen and examined in concert with Dr. Randle. In agreement with the documented findings as noted in the resident documentation with any exceptions or additions as noted here. Improving shortness of breath and malaise without fever since admission. Does report h/o drooling intermittently but denies choking episodes with swallowing. On examination, S1/S2 nl RRR no MCG. Decreased bibasilar breath sounds with rales. Abd NT/ND BS+ve. Notable L sided facial weakness. Pneumonia, concern for aspiration - transition to unasyn, [facility] evaluation pending. Continue solumedrol, duonebs. Follow up cultures. O2 per protocol NADINE - holding lisinopril, brief, gentle hydration. Else see resident documentation as noted. Subjective Mr. Davenport notes improvement in his breathing and overall well being this AM. He denies any fevers, chills, chest pains, nausea, vomiting, diarrhea. He did note that he has a year history of drooling from right side of mouth that daughter mentioned to him. He did state that he has a hx of bacteremia about a couple years ago in [place] that required a 7 day hospital stay. He notes that he thinks he had influenza 2 weeks ago as his and him were sick with chills and they both got better, but then he got worse again. She stayed well. He notes being up to date with influenza and pneumococcal vaccination. He notes a very insignificant pipe smoking history in the 1960s but he didn't inhale. Otherwise, only smoking history was when friend had a baby smoking a celebratory cigar. Physical Exam Constitutional: WD/WN, vitals as above cooperative and comfortable pleasant Eyes: PERRL, conjunctivae normal, anicteric sclerae ENMT: external ear and nose normal, oropharynx normal Neck: normal visual inspection and trachea midline Respiratory: normal respiratory effort and + cough (mild intermittent); no respiratory distress and not tachypneic Auscultation: + diminished lung sounds (posteriorly more diminished at bases); no wheezes Cardiovascular: Rate/Rhythm: regular rhythm and + tachycardic Extremities: no calf tenderness and no pedal edema Gastrointestinal (Abdomen): Inspection/Auscultation: normal bowel sounds Percussion/Palpation: abdomen soft; abdomen nontender, no guarding and abdomen not rigid Musculoskeletal: Head/Neck/Chest: normocephalic, head atraumatic and neck supple Extremities: extremities normal to inspection Skin: no rashes, warm and dry Neurologic: moves all extremities and awake mild right sided facial droop that spares the forehead, noted by patient to have history of same over past year. Psychiatric: A+Ox3, euthymic affect Results & Data ([facility]) Vital Signs (Past 12 Hours) Vital Signs Temp Pulse Pulse Resp BP Pulse Ox 06/03/19 07:22 82 18 92 06/03/19 07:07 36.6 C 99 H 16 140/80 94 06/03/19 04:00 36.4 C L 90 16 128/73 93 06/03/19 01:55 87 06/02/19 23:06 36.6 C 107 H 24 139/71 96 06/02/19 22:17 101 H 19 110/55 L 92 06/02/19 20:25 101 H 21 154/82 H 99 06/02/19 19:57 88 21 136/70 98 Laboratory Results Laboratory Results - last 24 hr 06/02/19 06/02/19 06/02/19 19:10 19:10 19:10 WBC 7.74 RBC 4.10 L Hgb 12.7 L Hct 38.7 L MCV 94.4 MCH 31.0 MCHC 32.8 RDW Std Deviation 47.0 H RDW Coeff of Ramy 13.6 Plt Count 277 MPV 10.8 H Immature Gran % (Auto) 0.8 Neut % (Auto) 70.1 Lymph % (Auto) 16.3 [place] % (Auto) 9.9 Eos % (Auto) 2.8 Baso % (Auto) 0.1 Immature Gran # (Auto) 0.06 H Neut # (Auto) 5.42 Lymph # (Auto) 1.26 [place] # (Auto) 0.77 H Eos # (Auto) 0.22 Baso # (Auto) 0.01 PT 10.8 INR 1.1 APTT 23.6 PTT Ratio 0.9 Sodium 139 Potassium 4.1 Chloride 107 Carbon Dioxide 27 Anion Gap 5.0 BUN 29 H Creatinine 1.67 H Est Cr Clr Drug Dosing 33.5 Est GFR ( Amer) 43.2 Est GFR (Non-Af Amer) 37.3 BUN/Creatinine Ratio 17.6 Glucose 109 H Lactate Calcium 9.6 Magnesium 2.4 Total Bilirubin 0.9 AST 13 L ALT 20 Alkaline Phosphatase 74 Troponin I < 0.015 Total Protein 6.8 Albumin 3.2 L Globulin 3.6 Albumin/Globulin Ratio 0.9 Procalcitonin Urine Color Urine Appearance Urine pH Ur Specific [place] Urine Protein Urine Glucose (UA) Urine Ketones Urine Blood Urine Nitrite Urine Bilirubin Urine Urobilinogen Ur Leukocyte Esterase Nasal Screen MRSA (PCR) Influenza Type A (PCR) Influenza Type B (PCR) 0206/02/19 06/02/19 19:10 19:17 19:20 WBC RBC Hgb Hct MCV MCH MCHC RDW Std Deviation RDW Coeff of Ramy Plt Count MPV Immature Gran % (Auto) Neut % (Auto) Lymph % (Auto) [place] % (Auto) Eos % (Auto) Baso % (Auto) Immature Gran # (Auto) Neut # (Auto) Lymph # (Auto) [place] # (Auto) Eos # (Auto) Baso # (Auto) PT INR APTT PTT Ratio Sodium Potassium Chloride Carbon Dioxide Anion Gap BUN Creatinine Est Cr Clr Drug Dosing Est GFR ( Amer) Est GFR (Non-Af Amer) BUN/Creatinine Ratio Glucose Lactate 1.7 Calcium Magnesium Total Bilirubin AST ALT Alkaline Phosphatase Troponin I Total Protein Albumin Globulin Albumin/Globulin Ratio Procalcitonin 0.46 Urine Color Urine Appearance Urine pH Ur Specific [place] Urine Protein Urine Glucose (UA) Urine Ketones Urine Blood Urine Nitrite Urine Bilirubin Urine Urobilinogen Ur Leukocyte Esterase Nasal Screen MRSA (PCR) Influenza Type A (PCR) Neg for Influ A Influenza Type B (PCR) Neg for Influ B 06/03/19 06/03/19 03:35 10:15 WBC RBC Hgb Hct MCV MCH MCHC RDW Std Deviation RDW Coeff of Ramy Plt Count MPV Immature Gran % (Auto) Neut % (Auto) Lymph % (Auto) [place] % (Auto) Eos % (Auto) Baso % (Auto) Immature Gran # (Auto) Neut # (Auto) Lymph # (Auto) [place] # (Auto) Eos # (Auto) Baso # (Auto) PT INR APTT PTT Ratio Sodium Potassium Chloride Carbon Dioxide Anion Gap BUN Creatinine Est Cr Clr Drug Dosing Est GFR ( Amer) Est GFR (Non-Af Amer) BUN/Creatinine Ratio Glucose Lactate Calcium Magnesium Total Bilirubin AST ALT Alkaline Phosphatase Troponin I Total Protein Albumin Globulin Albumin/Globulin Ratio Procalcitonin Urine Color Yellow Urine Appearance Clear Urine pH 5.0 Ur Specific [place] <= 1.005 Urine Protein Negative Urine Glucose (UA) Negative Urine Ketones Negative Urine Blood Negative Urine Nitrite Negative Urine Bilirubin Negative Urine Urobilinogen Negative Ur Leukocyte Esterase Negative Nasal Screen MRSA (PCR) Negative Influenza Type A (PCR) Influenza Type B (PCR) Medications Administered Albuterol (Duoneb) 3 ml NEB QIDR CORI Stop: 07/03/19 06:59 Last Admin: 06/03/19 15:10 Dose: 3 ml Documented by: [id number] Admin: 06/03/19 11:06 Dose: 3 ml Documented by: [id number] Admin: 06/03/19 07:21 Dose: 3 ml Documented by: [id number] Aspirin (Ecotrin Ectab) 81 mg PO DAILY [facility] Stop: 07/03/19 08:59 Last Admin: 06/03/19 08:16 Dose: 81 mg Documented by: [id number] Finasteride (Proscar) 5 mg PO QAM [facility] Stop: 07/03/19 08:59 Last Admin: 06/03/19 08:16 Dose: 5 mg Documented by: [id number] Guaifenesin (Mucinex) 600 mg PO Q12 [facility] Stop: 07/03/19 08:59 Last Admin: 06/03/19 08:16 Dose: 600 mg Documented by: [id number] Heparin Sodium (Porcine) (Heparin Sodium (Porcine)) 5,000 units SQ Q12 [facility] Stop: 07/03/19 08:59 Last Admin: 06/03/19 08:16 Dose: 5,000 units Documented by: [id number] Cosigned by: [id number] Methylprednisolone 40 mg/ (Syringe) 0.64 mls @ 1.5 mls/min IV Q8H [facility] Stop: 07/02/19 22:59 Last Admin: 06/03/19 15:05 Dose: 1.5 mls/min Documented by: [id number] Admin: 06/03/19 08:16 Dose: 1.5 mls/min Documented by: [id number] Admin: 06/03/19 00:49 Dose: 1.5 mls/min Documented by: [id number] Sodium Chloride (Nss 1000ml) 1,000 mls @ 125 mls/hr IV .Q8H [facility] Stop: 06/04/19 01:29 Last Admin: 06/03/19 09:45 Dose: 125 mls/hr Documented by: [id number] Vitamin D (Vitamin D3) 2,000 units PO QAM [facility] Stop: 07/03/19 08:59 Last Admin: 06/03/19 08:16 Dose: 2,000 units Documented by: [id number] Resident Activity Tracking Resident Involvement: Resident Care Provided Care Provided: Adult Hospital Medicine (1) Pneumonia Laterality: unspecified laterality Lung location: unspecified part of lung Pneumonia type: due to unspecified organism Qualified Code(s): J18.9 - P neumonia, unspecified organism
[2019-06-03] MEDS: FINASTERIDE 5 MG TAB PO SCH (08:16)
[2019-06-03] MEDS: HEPARIN SOD 5,000 UNIT/0.5 ML VIAL SQ SCH ×2 (08:16→20:52)
[2019-06-03] MEDS: guaiFENesin 600 MG TABCR PO SCH ×2 (08:16→20:51)
[2019-06-03] MEDS: CHOLECALCIFEROL 1,000 UNITS 25 MCG TAB PO SCH (08:16)
[2019-06-03] MEDS: ASPIRIN 81 MG ECTAB PO SCH (08:16)
[2019-06-03] MEDS ORDERED: cefTRIAXone SODIUM 2,000 MG in DEXTROSE 5% 50 ML IV SCH (09:00)
[2019-06-03] MEDS: SODIUM CHLORIDE 0.9% 1000ML 1,000 ML IV SCH ×2 (09:45→17:11)
[2019-06-03] MEDS: AMPICILLIN/SULBACTAM SOD 3,000 MG in 0.9 % SODIUM CHLORIDE 100 ML IV SCH ×2 (17:11→20:48)
--- NOTE | 2019-06-03 18:55 | Electrocardiogram Report ---
Test Reason : Blood Pressure : / mmHG Vent. Rate : 079 BPM Atrial Rate : 079 BPM P-R Int : 156 ms QRS Dur : 088 ms QT Int : 386 ms P-R-T Axes : 060 036 021 degrees QTc Int : 442 ms Normal sinus rhythm Normal ECG No previous ECGs available Confirmed by Lino Stahl ([id number]) on 06/03/2019 6:55:08 PM Referred By: [facility] Confirmed By:Martinez Stahl
[2019-06-03] MEDS ORDERED: TAMSULOSIN HCL 0.4 MG CAP PO SCH (21:00)
[2019-06-03] MEDS ORDERED: FAMOTIDINE 20 MG TAB PO SCH (21:00)
[2019-06-03] MEDS ORDERED: MAGNESIUM OXIDE 400 MG TAB PO SCH (21:00)
[2019-06-04] MEDS: AMPICILLIN/SULBACTAM SOD 3,000 MG in 0.9 % SODIUM CHLORIDE 100 ML IV SCH ×2 (04:57→11:16)
[2019-06-04 05:12] LABS: Appearance Urine Clear (Clear); Bilirubin Urine Negative (Negative); Blood Urine Negative (Negative); Color Urine Yellow; Glucose Urine UA Negative (Negative); Ketones Urine Negative (Negative); Leukocyte Esterase Urine Negative (Negative); Nitrite Urine Negative (Negative); Protein Urine Negative (Negative); Specific Gravity Urine 1.013 (1.000-1.030); Urobilinogen Urine Negative (Negative)
[2019-06-04 05:51] LABS: Basophils # (auto) 0.01 K/uL (0-0.2); Basophils % (auto) 0.1 %; Hematocrit (blood only) 38.9 % (42-52); Hemoglobin 12.8 g/dL (14.0-18.0); Immature Granulocytes # (auto) 0.07 K/uL (0.00-0.02); Immature Granulocytes % (auto) 0.5 %; Lymphocytes # (auto) 0.74 K/uL (1.2-3.4); Lymphocytes % (auto) 5.8 %; Mean Corpuscular Hemoglobin 31.1 pg (25-34); Mean Corpuscular Hgb Conc 32.9 g/dL (32-36); Mean Corpuscular Volume 94.6 fL (80-100); Mean Platelet Volume 10.2 fL (7.4-10.4); Monocytes # (auto) 0.58 K/uL (0.11-0.59); Monocytes % (auto) 4.5 %; Neutrophils # (auto) 11.42 K/uL (1.4-6.5); Neutrophils % (auto) 89.1 %; Platelet Count 326 K/uL (130-400); RDW Coefficient of Variation 13.5 % (11.5-14.5); RDW Standard Deviation 46.6 fL (36.4-46.3); Red Blood Count 4.11 M/uL (4.7-6.1); White Blood Count 12.82 K/uL (4.8-10.8)
[2019-06-04] MEDS: methylPREDNISolone 40 MG in SYRINGE 0 ML IV SCH (06:20)
[2019-06-04 06:30] LABS: Albumin Level 3.1 gm/dl (3.4-5.0); BUN Creatinine Ratio 15.2 (10-20); Creatinine Clr Calc Pharmacy 37.6 ml/min; Est GFR (African American) 49.6; Est GFR (Non-African American) 42.8; Magnesium 2.1 mg/dl (1.8-2.4); Potassium 4.5 mmol/L (3.5-5.1)
[2019-06-04 06:33] LABS: Albumin Globulin Ratio 0.9 (0.9-2); Bilirubin,Total 0.4 mg/dl (0.2-1); Globulin 3.5 gm/dl (2.5-4.0); Phosphorus 3.7 mg/dl (2.5-4.9); Total Protein 6.6 gm/dl (6.4-8.2)
[2019-06-04] MEDS: ALBUT/IPRATROP 3MG/0.5MG NEB 3 ML VIAL NEB SCH ×2 (07:44→11:29)
[2019-06-04] MEDS: HEPARIN SOD 5,000 UNIT/0.5 ML VIAL SQ SCH (08:05)
[2019-06-04] MEDS: guaiFENesin 600 MG TABCR PO SCH (08:05)
[2019-06-04] MEDS: ASPIRIN 81 MG ECTAB PO SCH (08:05)
[2019-06-04] MEDS: FINASTERIDE 5 MG TAB PO SCH (08:05)
[2019-06-04] MEDS: CHOLECALCIFEROL 1,000 UNITS 25 MCG TAB PO SCH (08:05)
--- NOTE | 2019-06-04 14:24 | Discharge Summary ---
Date of Service June 04, 2019 Admission HPI Per Admitting Provider The patient is a 83-year-old male with a past medical history including hypertension, BPH with LUTS, squamous cell skin cancer, and basal cell skin skin cancer. He presents to the emergency department with 2 weeks of progressively worsening cough and shortness of breath. He was referred to the ED by his PCP when informed of the patient's symptoms. Principal Diagnosis Pneumonia Discharge Exam Constitutional WD/WN, vitals as above cooperative and comfortable Eyes PERRL, conjunctivae normal, anicteric sclerae ENMT external ear and nose normal, oropharynx normal Neck normal visual inspection and trachea midline Respiratory normal respiratory effort and + cough (mild intermittent); no respiratory distress and not tachypneic Auscultation: + crackles (bibasilar); no wheezes Cardiovascular Rate/Rhythm: regular rhythm Extremities: no calf tenderness and no pedal edema Gastrointestinal (Abdomen) Inspection/Auscultation: normal bowel sounds Percussion/Palpation: abdomen soft; abdomen nontender, no guarding and abdomen not rigid Musculoskeletal Head/Neck/Chest: normocephalic, head atraumatic and neck supple Extremities: extremities normal to inspection Skin no rashes, warm and dry Neurologic moves all extremities and awake Psychiatric A+Ox3, euthymic affect Discharge Data Allergies Allergy/AdvReac Type Severity Reaction Status Date / Time No Known Allergies Allergy Verified 06/02/19 19:23 Consultations 06/02/19 20:43 ED Decision to Admit Stat 06/02/19 23:03 Consult Case Management - Discharge Planning Routine Ordered Studies 06/02/19 18:56 CT angio chest PE protocol Stat Hospital Course (1) Pneumonia: Mr. Onel Davenport is a 83 y/o male with past medical hx of SCC, BCC, BPH who presented with history of viral URI/possible influenza that progressed to superimposed bilateral bibasilar pneumonia vs. Aspiration pneumonia. Pneumonia: -Was started on ceftriaxone 1 g IV daily and levofloxacin 500 mg IV, but wished to avoid tendinopathy from Fluoroquinolone and wanted monotherapy. Discontinued both Ceftriaxone and Levofloxacin. MRSA swab was negative. Since history also concerning for possible aspiration, was started on Unasyn 3gm IV q6h x 24 hours. -Did well clinically, therefore will be discharged on 10 days of augmentin BID. -Pt did not require any supplemental O2 -Pt received 5 doses of solumedrol 40 IV x9j--[id number] to short taper of PO prednisone x 4 days Code: Full Code (2) Weakness on right side of face: Doesn't appear acute and noted to have drooling for over a year. Passed swallow study; already using avoidant behavior on dry foods he does not tolerate well. (3) NADINE (acute kidney injury): Baseline Creat appears to be 1.3. Returned to baseline on discharge. Held Lisinopril while inpatient; resume on discharge (4) Hypertension: Held lisinopril. Resume on discharge (5) BPH w urinary obs/LUTS: Continue finasteride and tamsulosin Total Time Total Time Spent Total Time Spent (In Minutes): 30 Discharge Plan Discharge Items Patient Disposition: Home - Self-Care Reason For Visit: BIBASILAR PNEUMONIA Discharge Diagnosis: Pneumonia Activity: Per Instructions section Non-emergency contact: Primary Care Provider Call non-emergency contact if: you have any medication questions, your symptoms worsen and your rectal temperature is above 100.4 Follow-up/Referrals: Doyle Pimentel [Primary Care Provider] - Diet: Regular Addtl Attending Provider Instructions: During this admission to the hospital, you were evaluated and treated for pneumonia. You responded well to the steroids and antibiotics that you were given during your stay, and we will continue to give you oral antibiotics for the next 10 days. We will also continue an oral course of steroids for 4 days. Please follow the instructions given on the prescription, which are also listed below. You may continue to have episodes of coughing for several weeks, and this is expected, but if your symptoms worsen and this is concerning to you, please follow up with your primary care provider. NEW MEDICATIONS: 1) Augmentin (Antibiotic): twice daily for 10 days 2) Prednisone (steroid): *This will be a taper over 4 days* --Day 1: 4 tabs at once, in the morning (40mg) --Day 2: 3 tabs at once, in the morning (30mg) --Day 3: 2 tabs at once, in the morning (20mg) --Day 4: 1 tab in the morning (10 mg)--LAST DAY Please RESUME your LISINOPRIL medication. We recommend you follow up with your primary care provider in 7-10 days. Pending Studies at Discharge: No Stand-Alone Forms: [facility], Smoking Cessation Medications and DC Order Prescriptions: New amoxicillin-pot clavulanate [Augmentin] 875-125 mg tablet 1 tab PO BID 10 Days Qty: 20 RF: 0 prednisone 10 mg tablet 10 mg PO DAILY Qty: 10 RF: 0 Continued finasteride 5 mg tablet 5 mg PO QAM Qty: 90 RF: 0 cholecalciferol (vitamin D3) 2,000 unit tablet 2,000 unit PO QAM RF: 0 aspirin 81 mg Tablet,Delayed Release (Dr/Ec) 81 mg PO DAILY RF: 0 lisinopril 10 mg tablet 5 mg PO QAM RF: 0 magnesium 200 mg Tablet 200 mg PO HS RF: 0 tamsulosin 0.4 mg capsule 0.4 mg PO HS RF: 0 Discharge Orders: Discharge Order (Routine); Ordered 06/04/19 Ordered By: Angelia Servin/Other Patient Handouts: Pneumonia Dc Admission Data Admit Date/Time: 06/02/19 21:44 Attending Provider: Bill Jeffries Admit Provider: Ramon Fernández Primary Care Provider: Doyle Pimentel Other Providers: Ramon Fernández Other Interventions: Discharge Summary Assessment (RN) Last Done: 06/04/19 14:16 DC Date/Time DO NOT enter until pt leaves facility: 06/04/19 14:40 Supervising Physician Co-Signing Physician Notes I saw the patient the resident physician and confirmed tyler portions of the history and physical examination. He has no complaints today and feels much better overall. He is afebrile and hemodynamically stable. Lungs with slight crackles in the bases bilaterally, left greater than right, although these clear with repeated deep inspiration. Pneumonia, clinically improved CKD, stage III, stable and slight improvement in creatinine Discharge home today Augmentin 875 mg p.o. twice daily Other medications as noted above Resident Activity Tracking Resident Involvement: Resident Care Provided Care Provided: Adult Hospital Medicine
[2019-06-04] MEDS ORDERED: LEVOFLOXACIN/D5W 750 MG/150 ML BAG IV SCH (20:00)
== END 2019-06-04 14:40 | disposition home or self-care (01) | DRG 194 ==
LOC: ED 18:23 → SUATTDRO 21:44 → 2N 21:44

== ENCOUNTER 2022-06-03 19:18 | Inpatient (IN) ==
--- NOTE | 2022-06-03 19:34 | Emergency Department Note ---
Impression & Plan Weakness, Urinary tract infection, COVID-19 ED Provider Note NAME: ROLANDA TELLO AGE: 86 SEX: M : 1935 ARRIVES VIA: Ambulance INFORMANT: Patient, ED PROVIDER(S): Sundeep Prado DO CHIEF COMPLAINT: Weakness HPI: The patient is an 86-year-old male who presented to the emergency department for weakness. It is unclear exactly what happened. The patient arrived with no call from the personal-correction and the prehospital personnel h ad very little history other than the patient was unable to walk and appears to have generalized weakness in both lower extremities. The patient himself offers no complaints. He states he has no headache nausea or vomiting. He denies having any chest pain or difficulty breathing. The patient was seen in our facility recently after a possible head injury. Additional history was obtained from the patient's personal-correction. Apparently the patient did have a low-grade fever earlier this evening. ROS: See above HPI for pertinent positives & negatives. A total of 10 systems reviewed and were otherwise negative. PAST MEDICAL HISTORY: See Below PAST SURGICAL HISTORY: See Below FAMILY HISTORY: See Below SOCIAL HISTORY: See Below HOME MEDICATIONS: See Below ALLERGIES: See Below VITALS: See Below PHYSICAL EXAMINATION: GENERAL: Patient is awake and alert. He is nonanxious appearing. EYES: The conjunctivae are clear. Surgical changes were noted on the right pu pil. EARS, NOSE, MOUTH AND THROAT: The nose is without any evidence of any deformity. NECK: The neck is nontender and supple. RESPIRATORY: Normal respiratory effort is noted there is no evidence of wheezing rhonchi or rales CARDIOVASCULAR: Ectopy was noted to auscultation. There is no tachycardia noted to auscultation. Systolic murmur was suggested. GASTROINTESTINAL: The abdomen is soft. Abdomen is nontender. MUSCULOSKELETAL/EXTREMITIES: There is no evidence of gross deformity full range of motion is noted in the hips and shoulders. SKIN: Skin is warm and dry. Trace pedal edema was noted bilaterally. NEUROLOGIC: Patient is awake to verbal commands. Patient is able to hold each leg off the bed for greater than 5 seconds. The patient is oriented to person place and time. 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 MEDICAL DECISION MAKING: The patient is a 86-year-old male who presented to the emergency department by ambulance from his personal correction. The patient's been experiencing problems with urine retention. He had Garcia catheter removed recently. His family has been monitoring his intake and output recently. He has not had significant u rinary retention. The patient was at his personal correction this evening when he had an episode where he could not stand. When family emerged tried to help him he had severe difficulty trying to get him up to walk. 911 was called and the patient was sent to the emergency department for further evaluation. Discussing further with his granddaughter apparently the patient has a history of urinary tract infection. He was noted to have a fever at the personal-correction. I discussed patient's laboratory and radiographic studies with him and his family members. He was found to have signs of urinary tract infection. I did review the patient's previous cultures. He has had culture positive for Klebsiella as well as Pseudomonas in the past. This was a cath specimen and should yield a good specimen. For this reason I discussed the case with the on- call [facility] hospitalist. Triage Nursing notes reviewed. Prior medical records reviewed Vital Signs: reviewed and remarkable for elevated blood pressure. Differential diagnosis: Infection, dehydration, metabolic abnormality, hypo/hyperglycemia, electrolyte disturbance, anemia, hypoxia, cardiac sources, intracerebral event, toxicologic, neurologic, as well as other pathologies. ER treatment provided: See below Diagnostics interpreted by me: ECG: EKG was obtained in the emergency department. My interpretation is normal sinus rhythm at 83 bpm. PACs were noted. There was no acute ST segment abnormalities noted. This was compared to a tracing from December 17, 2021. No significant changes were noted other than the ectopy. Cardiac Monitoring: An order was placed for continuous cardiac monitoring. The monitor shows a rate of 80 bpm with sinus rhythm. Laboratory studies: As stated above and show below. Imaging studies: See below. Radiographic imaging was reviewed by myself Consultation(s): Dr. Fernández was notified about the patient. He will evaluate the patient in the emergency department. Past Med/Surg History Medical History BPH w urinary obs/LUTS Diverticulosis of large intestine without perforation or abscess without bleeding Dysarthria and anarthria Dysphagia Dysphonia Hearing deficit TUSCARORA left History of basal cell carcinoma History of blood clots superficial - LLE - 2 years ago, RLE - approx 1 year ago? History of SCC (squamous cell carcinoma) of skin Hyperlipidemia Hypertension 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 stage III Irregular heart rhythm follows w/ Dr. Gayle Muscle spasm of back Other abnormalities of gait and mobility Parkinson disease Poor historian Resides in long-term facility current resident of [facility] Surgical History History of colonoscopy History of eye surgery Rt eye History of knee surgery Rt Status post Mohs surgery Family History Other Adopted Social History Smoking Status: Never smoker Second Hand Exposure: No; Preferred Language: German Communication Ability: Effective Dental Technologist Required: No Beliefs That Will Affect Care: None marital status: Current Living Situation: Spouse Current Living Situation Comment: lives with at [facility] current occupational status: retired Feels Safe at Home: Yes Assistive Devices: Glasses Allergies Allergies Allergy/AdvReac Type Severity Reaction Status Date / Time No Known Allergies Allergy Verified 05/14/22 10:40 Home Meds Home Medications Medication Instructions Recorded Confirmed amlodipine 2.5 mg tablet 2.5 mg PO QAM 12/04/21 06/03/22 apixaban 2.5 mg tablet (Eliquis) 2.5 mg PO BID 12/04/21 06/03/22 aspirin 81 mg capsule 81 mg PO QAM 12/04/21 06/03/22 carbidopa 25 mg-levodopa 100 mg 1 tab PO TID 12/04/21 06/03/22 tablet (Sinemet) cholecalciferol (vitamin D3) 50 50 mcg PO DAILY 12/04/21 06/03/22 mcg (2,000 unit) capsule finasteride 5 mg tablet (Proscar) 5 mg PO QAM 12/04/21 06/03/22 pantoprazole 40 mg tablet,delayed 40 mg PO QAM 12/04/21 06/03/22 release tamsulosin 0.4 mg capsule (Flomax) 0.4 mg PO QPM 12/04/21 06/03/22 cyanocobalamin (vitamin B-12) 1,000 mcg PO DAILY 01/21/22 06/03/22 1,000 mcg tablet (Vitamin B-12) Previous Rx's Medication Instructions Recorded oxybutynin chloride 5 mg tablet 5 mg PO Q8H PRN bladder spasms #6 01/25/22 tabs Results & Data (ED) Vital Signs Vital Signs - 24 hr 06/03/22 19:25 06/03/22 19:27 06/03/22 19:27 Temperature 37.5 C 37.5 C Temperature Source Oral Oral Pulse Rate 88 93 H Pulse Rate from SpO2 Sensor Pulse Rhythm Regular Respiratory Rate 16 16 Respiratory Effort / Characteristics Non-Labored Spontaneous Non-Labored Spontaneous Respiratory Depth Normal Normal Respiratory Pattern Regular Regular Blood Pressure 158/85 H Blood Pressure Mean 109 Pulse Oximetry 93 93 Oxygen Delivery Method Room Air Room Air Sepsis Recent Fever Within 48 Hours No Sepsis New/Unexplained Change in Mental Status No Sepsis Action Taken by Nursing No Action Required 06/03/22 19:27 06/03/22 19:22 06/03/22 19:30 Temperature Temperature Source Pulse Rate 93 H 122 H Pulse Rate from SpO2 Sensor 121 H Pulse Rhythm Regular Respiratory Rate 16 29 H Respiratory Effort / Characteristics Respiratory Depth Respiratory Pattern Blood Pressure 158/85 H Blood Pressure Mean 109 Pulse Oximetry 93 98 Oxygen Delivery Method Room Air Sepsis Recent Fever Within 48 Hours Sepsis New/Unexplained Change in Mental Status Sepsis Action Taken by Nursing 06/03/22 19:30 06/03/22 19:33 06/03/22 20:00 Temperature Temperature Source Pulse Rate 120 H 95 H Pulse Rate from SpO2 Sensor 120 H Pulse Rhythm Respiratory Rate 22 17 Respiratory Effort / Characteristics Respiratory Depth Respiratory Pattern Blood Pressure 167/95 H Blood Pressure Mean 119 Pulse Oximetry 98 Oxygen Delivery Method Sepsis Recent Fever Within 48 Hours Sepsis New/Unexplained Change in Mental Status Sepsis Action Taken by Nursing 06/03/22 20:00 06/03/22 20:30 06/03/22 20:30 Temperature Temperature Source Pulse Rate 100 H Pulse Rate from SpO2 Sensor 95 H Pulse Rhythm Respiratory Rate 18 Respiratory Effort / Characteristics Respiratory Depth Respiratory Pattern Blood Pressure 147/85 H 146/97 H Blood Pressure Mean 105 113 Pulse Oximetry 90 Oxygen Delivery Method Sepsis Recent Fever Within 48 Hours Sepsis New/Unexplained Change in Mental Status Sepsis Action Taken by Nursing 06/03/22 20:39 Temperature Temperature Source Pulse Rate 80 Pulse Rate from SpO2 Sensor 76 Pulse Rhythm Respiratory Rate 19 Respiratory Effort / Characteristics Respiratory Depth Respiratory Pattern Blood Pressure Blood Pressure Mean Pulse Oximetry 96 Oxygen Delivery Method Sepsis Recent Fever Within 48 Hours Sepsis New/Unexplained Change in Mental Status Sepsis Action Taken by [facility] Medications Current Medication List: was personally reviewed by me Laboratory Data Attestation: I reviewed the patient's lab results. 06/03/22 19:44 06/03/22 19:44 Lab Results 06/03/22 06/03/22 06/03/22 Range/Units 19:44 19:44 19:44 WBC 6.11 (4.8-10.8) K/ul RBC 4.47 L (4.70-6.10) M/uL Hgb 13.8 L (14.0-18.0) g/dl Hct 41.2 L (42.0-52.0) % MCV 92.2 (80.0-100.0) fL MCH 30.9 (25.0-34.0) pg MCHC 33.5 (32.0-36.0) g/dL RDW Std Deviation 44.2 (36.4-46.3) fL RDW Coeff of Ramy 13.1 (11.5-14.5) % Plt Count 164 (130-400) K/uL MPV 11.3 (9.4-12.4) fL Immature Gran % (Auto) 0.7 % Neut % (Auto) 73.3 % Lymph % (Auto) 6.5 % Hutchinson % (Auto) 18.5 % Eos % (Auto) 0.7 % Baso % (Auto) 0.3 % Neut # (Auto) 4.48 (1.40-6.50) K/uL Lymph # (Auto) 0.40 L (1.2-3.4) K/uL Hutchinson # (Auto) 1.13 H (0.11-0.59) K/uL Eos # (Auto) 0.04 (0-0.50) K/uL Baso # (Auto) 0.02 (0-0.2) K/uL Immature Gran # (Auto) 0.04 (0.01-0.20) K/uL ESR (0-20) mm/hr PT 11.3 (9.0-12.0) Seconds INR 1.1 (0.9-1.1) APTT 26.6 (21.0-31.0) Seconds PTT Ratio 1.0 Sodium 135 L (136-145) mmol/L Potassium 3.9 (3.5-5.1) mmol/L Chloride 103 (98-107) mmol/L Carbon Dioxide 26 (21-32) mmol/L Anion Gap 6 (3-11) BUN 29 H (6-23) mg/dl Creatinine 1.28 (0.6-1.4) mg/dl Est Cr Clr Drug Dosing Not Reportable Est GFR ( Amer) 58.3 ml/min Est GFR (Non-Af Amer) 50.3 ml/min BUN/Creatinine Ratio 22.7 H (10-20) Glucose 91 (70-99(Fasting)) mg/dl Lactate (0.4-2.0) mmol/L Calcium 9.6 (8.5-10.1) mg/dl Magnesium 1.8 (1.7-2.4) mg/dl Total Bilirubin 1.5 H (0.2-1.0) mg/dl AST 13 (13-39) U/L ALT < 3 L (7-52) U/L Alkaline Phosphatase 83 (34-104) U/L Total Creatine Kinase 48 (30-223) U/L Troponin I High Sens 7.6 (0-20) pg/ml C-Reactive Protein (0-0.5) mg/dl Total Protein 6.7 (6.0-8.3) gm/dl Albumin 4.5 (3.4-5.0) gm/dl Globulin 2.2 L (2.5-4.0) gm/dl Albumin/Globulin Ratio 2.0 (0.9-2) TSH (0.300-4.500) uIu/ml Urine Color Urine Appearance (Clear) Urine pH (4.5-7.5) Ur Specific Mcloud (1.000-1.030) Urine Protein (Negative) Urine Glucose (UA) (Negative) Urine Ketones (Negative) Urine Blood (Negative) Urine Nitrite (Negative) Urine Bilirubin (Negative) Urine Urobilinogen (Negative) Ur Leukocyte Esterase (Negative) Urine WBC (Auto) (0-5) /hpf Urine RBC (Auto) (0-4) /hpf U Hyaline Cast (Auto) (0-5) /lpf U Epithel Cells (Auto) (0-5) /lpf Urine Bacteria (Auto) (Negative) SARS-CoV-2 (PCR) (Negative) Influenza Type A (PCR) (Neg) Influenza Type B (PCR) (Neg) RSV (RT-PCR) (Neg) 06/03/22 06/03/22 06/03/22 Range/Units 19:44 19:44 19:44 WBC (4.8-10.8) K/ul RBC (4.70-6.10) M/uL Hgb (14.0-18.0) g/dl Hct (42.0-52.0) % MCV (80.0-100.0) fL MCH (25.0-34.0) pg MCHC (32.0-36.0) g/dL RDW Std Deviation (36.4-46.3) fL RDW Coeff of Ramy (11.5-14.5) % Plt Count (130-400) K/uL MPV (9.4-12.4) fL Immature Gran % (Auto) % Neut % (Auto) % Lymph % (Auto) % Hutchinson % (Auto) % Eos % (Auto) % Baso % (Auto) % Neut # (Auto) (1.40-6.50) K/uL Lymph # (Auto) (1.2-3.4) K/uL Hutchinson # (Auto) (0.11-0.59) K/uL Eos # (Auto) (0-0.50) K/uL Baso # (Auto) (0-0.2) K/uL Immature Gran # (Auto) (0.01-0.20) K/uL ESR 10 (0-20) mm/hr PT (9.0-12.0) Seconds INR (0.9-1.1) APTT (21.0-31.0) Seconds PTT Ratio Sodium (136-145) mmol/L Potassium (3.5-5.1) mmol/L Chloride (98-107) mmol/L Carbon Dioxide (21-32) mmol/L Anion Gap (3-11) BUN (6-23) mg/dl Creatinine (0.6-1.4) mg/dl Est Cr Clr Drug Dosing Est GFR ( Amer) ml/min Est GFR (Non-Af Amer) ml/min BUN/Creatinine Ratio (10-20) Glucose (70-99(Fasting)) mg/dl Lactate 1.1 (0.4-2.0) mmol/L Calcium (8.5-10.1) mg/dl Magnesium (1.7-2.4) mg/dl Total Bilirubin (0.2-1.0) mg/dl AST (13-39) U/L ALT (7-52) U/L Alkaline Phosphatase (34-104) U/L Total Creatine Kinase (30-223) U/L Troponin I High Sens (0-20) pg/ml C-Reactive Protein (0-0.5) mg/dl Total Protein (6.0-8.3) gm/dl Albumin (3.4-5.0) gm/dl Globulin (2.5-4.0) gm/dl Albumin/Globulin Ratio (0.9-2) TSH 2.980 (0.300-4.500) uIu/ml Urine Color Urine Appearance (Clear) Urine pH (4.5-7.5) Ur Specific Mcloud (1.000-1.030) Urine Protein (Negative) Urine Glucose (UA) (Negative) Urine Ketones (Negative) Urine Blood (Negative) Urine Nitrite (Negative) Urine Bilirubin (Negative) Urine Urobilinogen (Negative) Ur Leukocyte Esterase (Negative) Urine WBC (Auto) (0-5) /hpf Urine RBC (Auto) (0-4) /hpf U Hyaline Cast (Auto) (0-5) /lpf U Epithel Cells (Auto) (0-5) /lpf Urine Bacteria (Auto) (Negative) SARS-CoV-2 (PCR) (Negative) Influenza Type A (PCR) (Neg) Influenza Type B (PCR) (Neg) RSV (RT-PCR) (Neg) 06/03/22 06/03/22 06/03/22 Range/Units 19:44 20:14 20:30 WBC (4.8-10.8) K/ul RBC (4.70-6.10) M/uL Hgb (14.0-18.0) g/dl Hct (42.0-52.0) % MCV (80.0-100.0) fL MCH (25.0-34.0) pg MCHC (32.0-36.0) g/dL RDW Std Deviation (36.4-46.3) fL RDW Coeff of Ramy (11.5-14.5) % Plt Count (130-400) K/uL MPV (9.4-12.4) fL Immature Gran % (Auto) % Neut % (Auto) % Lymph % (Auto) % Hutchinson % (Auto) % Eos % (Auto) % Baso % (Auto) % Neut # (Auto) (1.40-6.50) K/uL Lymph # (Auto) (1.2-3.4) K/uL Hutchinson # (Auto) (0.11-0.59) K/uL Eos # (Auto) (0-0.50) K/uL Baso # (Auto) (0-0.2) K/uL Immature Gran # (Auto) (0.01-0.20) K/uL ESR (0-20) mm/hr PT (9.0-12.0) Seconds INR (0.9-1.1) APTT (21.0-31.0) Seconds PTT Ratio Sodium (136-145) mmol/L Potassium (3.5-5.1) mmol/L Chloride (98-107) mmol/L Carbon Dioxide (21-32) mmol/L Anion Gap (3-11) BUN (6-23) mg/dl Creatinine (0.6-1.4) mg/dl Est Cr Clr Drug Dosing Est GFR ( Amer) ml/min Est GFR (Non-Af Amer) ml/min BUN/Creatinine Ratio (10-20) Glucose (70-99(Fasting)) mg/dl Lactate (0.4-2.0) mmol/L Calcium (8.5-10.1) mg/dl Magnesium (1.7-2.4) mg/dl Total Bilirubin (0.2-1.0) mg/dl AST (13-39) U/L ALT (7-52) U/L Alkaline Phosphatase (34-104) U/L Total Creatine Kinase (30-223) U/L Troponin I High Sens (0-20) pg/ml C-Reactive Protein 0.91 H (0-0.5) mg/dl Total Protein (6.0-8.3) gm/dl Albumin (3.4-5.0) gm/dl Globulin (2.5-4.0) gm/dl Albumin/Globulin Ratio (0.9-2) TSH (0.300-4.500) uIu/ml Urine Color Yellow Urine Appearance Clear (Clear) Urine pH 5.5 (4.5-7.5) Ur Specific Mcloud 1.013 (1.000-1.030) Urine Protein Negative (Negative) Urine Glucose (UA) Negative (Negative) Urine Ketones Trace H (Negative) Urine Blood Negative (Negative) Urine Nitrite Positive A (Negative) Urine Bilirubin Negative (Negative) Urine Urobilinogen Negative (Negative) Ur Leukocyte Esterase 2+ H (Negative) Urine WBC (Auto) >30 H (0-5) /hpf Urine RBC (Auto) 0-4 (0-4) /hpf U Hyaline Cast (Auto) 1-5 (0-5) /lpf U Epithel Cells (Auto) 0-5 (0-5) /lpf Urine Bacteria (Auto) 4+ H (Negative) SARS-CoV-2 (PCR) POSITIVE A* (Negative) Influenza Type A (PCR) Negative (Neg) Influenza Type B (PCR) Negative (Neg) RSV (RT-PCR) Negative (Neg) Administered Medications Discontinued Medications Piperacillin Sod/Tazobactam Sod (Zosyn) 4.5 gm in 120 mls @ 240 mls/hr IV NOW ONE Stop: 06/03/22 21:05 Last Infusion: 06/03/22 21:25 Dose: 0 mls/hr Documented By: Admin: 06/03/22 20:55 Dose: 240 mls/hr Documented By: JESSE Imaging Data My Impression: CT of the head was obtained in the emergency department. My interpretation is no acute intracranial hemorrhage or mass effect. 1 view chest x-ray was obtained in the emergency department. My interpretation is left basilar atelectasis with small effusion. No change from previous chest x-ray. Radiologist's Impression: Cervical Spine CT 06/03/22 19:26 CT cervical spine wo con CT DOSE: 1216.42 mGy.cm CLINICAL HISTORY: 86 years-old Male with fall. Acute neck injury status post fall COMPARISON: None. TECHNIQUE: Multiple axial CT images of the cervical spine were obtained without contrast. A dose lowering technique was utilized adhering to the principles of ALARA. FINDINGS: Straightening of the normal cervical lordosis. Multilevel degenerative changes are similar to prior. C3 and T2 vertebral body hemangiomata. The cervical soft tissues appear unremarkable. The visualized lung apices appear clear. IMPRESSION: No acute cervical spine fracture or subluxation. ACT 112: Negative or not required by law. The above report was generated using voice recognition software. It may contain grammatical, syntax or spelling errors. Electronically signed by: Satinder Hernandez M.D. 06/03/2022 8:32 PM Chest X-Ray 06/03/22 19:26 XR chest 1V portable HISTORY: 86 years-old Male weakness acutely COMPARISON: 03/28/2022 TECHNIQUE: AP view of the chest FINDINGS: Cardiac mediastinal and hilar silhouettes are within normal limits. No pneumothorax, large pleural effusion, airspace consolidation or overt pulmonary edema. Unchanged blunting of the costophrenic angles. Degenerative changes of the shoulders and spine. Chronic left-sided rib fractures. IMPRESSION: No acute process. ACT 112: Negative or not required by law. The above report was generated using voice recognition software. It may contain grammatical, syntax or spelling errors. Electronically signed by: Satinder Hernandez M.D. 06/03/2022 8:[address] 06/03/22 19:26 CT head/brain wo con CLINICAL HISTORY: 86 years-old Male with fall. Acute head and neck injury status post fall TECHNIQUE: Multiple axial CT images of the head were obtained without contrast. A dose lowering technique was utilized adhering to the principles of ALARA. COMPARISON: CT cervical spine of same day, head CT 05/16/2022 FINDINGS: No acute intracranial hemorrhage, midline shift, intracranial mass, hydrocephalus, territorial ischemia or abnormal extra-axial collection. Involutional changes with chronic microvascular ischemic disease. The calvarium is intact. Prior bilateral lens repair. The paranasal sinuses, mastoid air cells, and middle ear cavities are clear. IMPRESSION: No acute intracranial abnormality or calvarial fracture. ACT 112: Negative or not required by law. The above report was generated using voice recognition software. It may contain grammatical, syntax or spelling errors. Electronically signed by: Satinder Hernandez M.D. 06/03/2022 8:28 PM Discharge Plan Visit Data Patient Disposition: Being Evaluated by Hospitalist Forms Stand Alone Forms: [facility] [place] [employer] Prescriptions Prescriptions: No Action amlodipine 2.5 mg tablet 2.5 mg PO QAM aspirin 81 mg capsule 81 mg PO QAM Eliquis 2.5 mg tablet 2.5 mg PO BID tamsulosin [Flomax] 0.4 mg capsule 0.4 mg PO QPM pantoprazole 40 mg tablet,delayed release (DR/EC) 40 mg PO QAM finasteride [Proscar] 5 mg tablet 5 mg PO QAM carbidopa-levodopa [Sinemet] 25-100 mg tablet 1 tab PO TID cholecalciferol (vitamin D3) 50 mcg (2,000 unit) capsule 50 mcg PO DAILY cyanocobalamin (vitamin B-12) [Vitamin B-12] 1,000 mcg Tablet 1,000 mcg PO DAILY oxybutynin chloride 5 mg tablet 5 mg PO Q8H PRN (Reason: bladder spasms) Qty: 6 0RF Referrals Referrals: Doyle Pimentel [Non-Staff] -
--- NOTE | 2022-06-03 20:14 | XRay Report ---
XR chest 1V portable HISTORY: 86 years-old Male weakness acutely COMPARISON: 03/28/2022 TECHNIQUE: AP view of the chest FINDINGS: Cardiac mediastinal and hilar silhouettes are within normal limits. No pneumothorax, large pleural ef fusion, airspace consolidation or overt pulmonary edema. Unchanged blunting of the costophrenic angle s. Degenerative changes of the shoulders and spine. Chronic left-sided rib fractures. IMPRESSION: No acute process. ACT 112: Negative or not required by law. The above report was generated using voice recognition software. It may contain grammatical, syntax o r spelling errors. Electronically signed by: Satinder Hernandez M.D. 06/03/2022 8:12 PM
[2022-06-03 20:16] LABS: Basophils # (auto) 0.02 K/uL (0-0.2); Basophils % (auto) 0.3 %; Eosinophils # (auto) 0.04 K/uL (0-0.50); Eosinophils % (auto) 0.7 %; Hematocrit (blood only) 41.2 % (42.0-52.0); Hemoglobin 13.8 g/dl (14.0-18.0); Immature Granulocytes # (auto) 0.04 K/uL (0.01-0.20); Immature Granulocytes % (auto) 0.7 %; Lymphocytes % (auto) 6.5 %; Mean Corpuscular Hemoglobin 30.9 pg (25.0-34.0); Mean Corpuscular Hgb Conc 33.5 g/dL (32.0-36.0); Mean Corpuscular Volume 92.2 fL (80.0-100.0); Mean Platelet Volume 11.3 fL (9.4-12.4); Monocytes # (auto) 1.13 K/uL (0.11-0.59); Monocytes % (auto) 18.5 %; Neutrophils # (auto) 4.48 K/uL (1.40-6.50); Neutrophils % (auto) 73.3 %; Platelet Count 164 K/uL (130-400); RDW Coefficient of Variation 13.1 % (11.5-14.5); RDW Standard Deviation 44.2 fL (36.4-46.3); Red Blood Count 4.47 M/uL (4.70-6.10); White Blood Count 6.11 K/ul (4.8-10.8)
[2022-06-03 20:17] LABS: Anion Gap 6 (3-11); BUN Creatinine Ratio 22.7 (10-20); Blood Urea Nitrogen 29 mg/dl (6-23); Calcium 9.6 mg/dl (8.5-10.1); Carbon Dioxide 26 mmol/L (21-32); Chloride 103 mmol/L (98-107); Est GFR (African American) 58.3 ml/min; Est GFR (Non-African American) 50.3 ml/min; Glucose 91 mg/dl (70-99(Fasting)); Potassium 3.9 mmol/L (3.5-5.1); Sodium 135 mmol/L (136-145)
[2022-06-03 20:24] LABS: Troponin I High Sensitivity 7.6 pg/ml (0-20)
[2022-06-03 20:26] LABS: Appearance Urine Clear (Clear); Bacteria Urine Automated 4+ (Negative); Bilirubin Urine Negative (Negative); Blood Urine Negative (Negative); Color Urine Yellow; Epithelial Cell Urine Auto 0-5 /lpf (0-5); Glucose Urine UA Negative (Negative); Ketones Urine Trace (Negative); Leukocyte Esterase Urine 2+ (Negative); Nitrite Urine Positive (Negative); Protein Urine Negative (Negative); RBC Urine Automated 0-4 /hpf (0-4); Specific Gravity Urine 1.013 (1.000-1.030); Urobilinogen Urine Negative (Negative); WBC Urine Automated >30 /hpf (0-5); pH Urine 5.5 (4.5-7.5)
[2022-06-03 20:30] LABS: INR 1.1 (0.9-1.1); Partial Thromboplastin Time 26.6 Seconds (21.0-31.0); Prothrombin Time 11.3 Seconds (9.0-12.0)
--- NOTE | 2022-06-03 20:30 | CT Scan Report ---
CT head/brain wo con CLINICAL HISTORY: 86 years-old Male with fall. Acute head and neck injury status post fall TECHNIQUE: Multiple axial CT images of the head were obtained without contrast. A dose lowering tech nique was utilized adhering to the principles of ALARA. COMPARISON: CT cervical spine of same day, head CT 05/16/2022 FINDINGS: No acute intracranial hemorrhage, midline shift, intracranial mass, hydrocephalus, territorial ischem ia or abnormal extra-axial collection. Involutional changes with chronic microvascular ischemic disea se. The calvarium is intact. Prior bilateral lens repair. The paranasal sinuses, mastoid air cells, and m iddle ear cavities are clear. IMPRESSION: No acute intracranial abnormality or calvarial fracture. ACT 112: Negative or not required by law. The above report was generated using voice recognition software. It may contain grammatical, syntax o r spelling errors. Electronically signed by: Satinder Hernandez M.D. 06/03/2022 8:28 PM
[2022-06-03 20:33] LABS: Alanine Aminotransferase < 3 U/L (7-52); Albumin Level 4.5 gm/dl (3.4-5.0); Alkaline Phosphatase 83 U/L (34-104); Aspartate Aminotransferase 13 U/L (13-39); Bilirubin,Total 1.5 mg/dl (0.2-1.0); Creatine Kinase 48 U/L (30-223); Globulin 2.2 gm/dl (2.5-4.0); Magnesium 1.8 mg/dl (1.7-2.4); Total Protein 6.7 gm/dl (6.0-8.3)
--- NOTE | 2022-06-03 20:35 | CT Scan Report ---
CT cervical spine wo con CT DOSE: 1216.42 mGy.cm CLINICAL HISTORY: 86 years-old Male with fall. Acute neck injury status post fall COMPARISON: None. TECHNIQUE: Multiple axial CT images of the cervical spine were obtained without contrast. A dose low ering technique was utilized adhering to the principles of ALARA. FINDINGS: Straightening of the normal cervical lordosis. Multilevel degenerative changes are similar to prior. C3 and T2 vertebral body hemangiomata. The cervical soft tissues appear unremarkable. The v isualized lung apices appear clear. IMPRESSION: No acute cervical spine fracture or subluxation. ACT 112: Negative or not required by law. The above report was generated using voice recognition software. It may contain grammatical, syntax o r spelling errors. Electronically signed by: Satinder Hernandez M.D. 06/03/2022 8:32 PM
[2022-06-03] MEDS ORDERED: PIPERACILLIN/TAZOBACTAM 4.5 GM/120 ML BAG IV ONE (20:36)
[2022-06-03 21:14] LABS: Influenza A virus by PCR Negative (Neg); Influenza B virus by PCR Negative (Neg); RSV by PCR Negative (Neg)
[2022-06-03 21:32] LABS: SARS CoV2 RNA(COVID-19) Ceph POSITIVE (Negative)
--- NOTE | 2022-06-03 23:00 | History & Physical Report ---
Date of Service June 03, 2022 Assessment & Plan (1) Weakness: (2) Urinary tract infection: (3) COVID-19: (4) Ambulatory dysfunction: (5) Parkinson disease: (6) Recurrent UTI (urinary tract infection): (7) Hypertension: (8) Altered mental status: (9) Dementia: (10) BPH w urinary obs/LUTS: (11) Irregular heart rhythm: (12) Laryngopharyngeal reflux (LPR): Plan Generalized weakness/ambulatory dysfunction- Patient is limited in his ability to relay symptoms due to underlying dementia and his history as a poor historian He has a known history of recurrent urinary tract infection, and his urinalysis suggestive of infection Patient is also COVID-19 positive, but he cannot relay any symptoms such as chest pain, shortness of breath, GI disturbances. It is possible that his generalized weakness may be his primary symptom of COVID-19 positivity The plan will be to treat his urinary tract infection, follow urine culture sensitivities, and monitor any potential COVID-19 symptoms Recurrent urinary tract infection/BPH with LUTS- Follow urine culture and sensitivity Previous organisms include: Klebsiella pneumoniae, Pseudomonas aeruginosa, Enterococcus faecalis and Escherichia fergusonii. We will place patient on meropenem IV and levofloxacin IV, which will cover all the above organisms Increase tamsulosin from 0.4 mg to 0.8 mg at bedtime Continue finasteride 5 mg daily Patient had been wearing a indwelling Garcia catheter, as prescribed by urology, and this was recently discontinued about 4 days ago. Continue oxybutynin chloride 5 mg for acute hours as needed for bladder spasm Consult urology Parkinson's disease- Continue carbidopa levodopa 25/101 p.o. 3 times daily Cardiac dysrhythmia/hypertension- Continue apixaban, amlodipine, aspirin GERD- Continue pantoprazole B12 deficiency- Continue 1000 mcg daily supplement Vitamin D deficiency- Continue 50 mcg daily supplement CODE STATUS: Conditional code, full resuscitation, DO NOT INTUBATE History of Present Illness Chief Complaint: The patient presents to the emergency department from his personal fci due to generalized weakness and fatigue in both lower extremities. Primary Care Provider: Aki Marion MD The patient is a 86-year-old male with a past medical history including Parkinson's disease, recurrent tract infection, BPH with LUTS, hypertension, pneumonia, laryngeal pharyngeal reflux, urinary retention, squamous cell carcinoma, basal cell carcinoma, irregular heart rhythm, B12 deficiency, and bladder spasm. The patient presents to the emergency department with generalized weakness in both lower extremities and fatigue from his personal fci. Patient has a long history of recurrent urinary tract infections secondary to BPH with LUTS, including infections over the past year due to Klebsiella pneumonia, Pseudomonas aeruginosa, Enterococcus faecalis and Escherichia fergusonii. Significant laboratories: RSV negative, flu negative, COVID-19 positive. Urinalysis positive for infection. Imaging studies: CT head negative, CT cervical spine negative, chest x-ray negative. Patient was given Zosyn 4.5 g IV by the ED Allergies Allergy/AdvReac Type Severity Reaction Status Date / Time No Known Allergies Allergy Verified 05/14/22 10:40 Home Medications Medication Instructions Recorded Confirmed Type amlodipine 2.5 mg tablet 2.5 mg PO QAM 12/04/21 06/03/22 History apixaban 2.5 mg tablet (Eliquis) 2.5 mg PO BID 12/04/21 06/03/22 History aspirin 81 mg capsule 81 mg PO QAM 12/04/21 06/03/22 History carbidopa 25 mg-levodopa 100 mg 1 tab PO TID 12/04/21 06/03/22 History tablet (Sinemet) cholecalciferol (vitamin D3) 50 50 mcg PO DAILY 12/04/21 06/03/22 History mcg (2,000 unit) capsule finasteride 5 mg tablet (Proscar) 5 mg PO QAM 12/04/21 06/03/22 History pantoprazole 40 mg tablet,delayed 40 mg PO QAM 12/04/21 06/03/22 History release tamsulosin 0.4 mg capsule (Flomax) 0.4 mg PO QPM 12/04/21 06/03/22 History cyanocobalamin (vitamin B-12) 1,000 mcg PO DAILY 01/21/22 06/03/22 History 1,000 mcg tablet (Vitamin B-12) oxybutynin chloride 5 mg tablet 5 mg PO Q8H PRN bladder spasms #6 01/25/22 06/03/22 Rx tabs Past Med/Surg History Medical History (Updated 06/04/22 @ 01:36 by Ramon Fernández MD) BPH w urinary obs/LUTS Dementia Diverticulosis of large intestine without perforation or abscess without bleeding Dysarthria and anarthria Dysphagia Dysphonia Hearing deficit [place] left History of basal cell carcinoma History of blood clots superficial - LLE - 2 years ago, RLE - approx 1 year ago? History of SCC (squamous cell carcinoma) of skin Hyperlipidemia Hypertension 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 stage III Irregular heart rhythm follows w/ Dr. Gayle Muscle spasm of back Other abnormalities of gait and mobility Parkinson disease Poor historian Resides in longterm facility current resident of [facility] Surgical History History of colonoscopy History of eye surgery Rt eye History of knee surgery Rt Status post Mohs surgery Family History Other Adopted Social History Smoking Status: Never smoker Second Hand Exposure: No; Do You Dip or Chew Tobacco: No; Tobacco Cessation Education Requested by Patient: No Hx Alcohol Use: Yes Alcohol type: beer, wine and hard liquor Alcohol Intake Frequency: Monthly or Less Hx Substance Use: No Preferred Language: Romanian Communication Ability: Effective Roller Bearing Inspector Required: No Beliefs That Will Affect Care: None marital status: Current Living Situation: Spouse and Personal Care Facility Current Living Situation Comment: [facility]. current occupational status: retired Other Information That Helps Us Care for You: No Feels Safe at Home: Yes Safety Concerns: Feels Safe At This Time Assistive Devices: Glasses and Walker Review of Systems Review of Systems: The patient's HPI and review of systems were somewhat limited due to his underlying dementia, as he was not able to tell us any symptoms, including that of fatigue and ambulatory dysfunction, that he was referred here from his personal fci Physical Exam Physical Exam: The patient is awake, alert, disoriented, normocephalic and atraumatic, lying in bed and in no acute distress. HEENT--PERRL, EOMI, mucous membranes and oropharynx dry. Neck--supple. No JVD. No bruits. Thyroid normal, trachea midline, no adenopathy. Heart--normal S1 and S2. No murmurs, rubs or gallops. Lungs--clear bilaterally, no respiratory distress, no accessory muscle use. Abdomen--normal bowel sounds and soft. Nontender. Nondistended, no hernias or masses, no organomegaly. Extremities--no cyanosis or clubbing. No edema. Dermatologic--normal skin turgor, normal color, no abnormal lymph nodes, no rash. Neurologic--cranial nerves II through XII grossly intact. Rheumatologic--normal range of motion. Psychiatric--normal affect. Results & Data Results & Data ([facility]) Vital Signs (Past 12 Hours) Vital Signs Temp Pulse Resp BP Pulse Ox O2 Del Method 06/03/22 20:39 80 19 96 06/03/22 20:30 146/97 H 06/03/22 20:30 100 H 18 90 06/03/22 20:00 147/85 H 06/03/22 20:00 95 H 17 06/03/22 19:33 120 H 22 98 06/03/22 19:30 167/95 H 06/03/22 19:30 122 H 29 H 98 06/03/22 19:22 158/85 H 06/03/22 19:27 93 H 16 93 Room Air 06/03/22 19:27 37.5 C 16 93 Room Air 06/03/22 19:27 37.5 C 93 H 16 158/85 H 93 Room Air 06/03/22 19:25 88 Laboratory Results Laboratory Results WBC 6.11 K/ul (4.8-10.8) 06/03/22 19:44 RBC 4.47 M/uL (4.70-6.10) L 06/03/22 19:44 Hgb 13.8 g/dl (14.0-18.0) L 06/03/22 19:44 Hct 41.2 % (42.0-52.0) L 06/03/22 19:44 MCV 92.2 fL (80.0-100.0) 06/03/22 19:44 MCH 30.9 pg (25.0-34.0) 06/03/22 19:44 MCHC 33.5 g/dL (32.0-36.0) 06/03/22 19:44 RDW Std Deviation 44.2 fL (36.4-46.3) 06/03/22 19:44 RDW Coeff of Ramy 13.1 % (11.5-14.5) 06/03/22 19:44 Plt Count 164 K/uL (130-400) 06/03/22 19:44 MPV 11.3 fL (9.4-12.4) 06/03/22 19:44 Immature Gran % (Auto) 0.7 % 06/03/22 19:44 Neut % (Auto) 73.3 % 06/03/22 19:44 Lymph % (Auto) 6.5 % 06/03/22 19:44 [place] % (Auto) 18.5 % 06/03/22 19:44 Eos % (Auto) 0.7 % 06/03/22 19:44 Baso % (Auto) 0.3 % 06/03/22 19:44 Neut # (Auto) 4.48 K/uL (1.40-6.50) 06/03/22 19:44 Lymph # (Auto) 0.40 K/uL (1.2-3.4) L 06/03/22 19:44 [place] # (Auto) 1.13 K/uL (0.11-0.59) H 06/03/22 19:44 Eos # (Auto) 0.04 K/uL (0-0.50) 06/03/22 19:44 Baso # (Auto) 0.02 K/uL (0-0.2) 06/03/22 19:44 Immature Gran # (Auto) 0.04 K/uL (0.01-0.20) 06/03/22 19:44 ESR 10 mm/hr (0-20) 06/03/22 19:44 PT 11.3 Seconds (9.0-12.0) 06/03/22 19:44 INR 1.1 (0.9-1.1) 06/03/22 19:44 APTT 26.6 Seconds (21.0-31.0) 06/03/22 19:44 PTT Ratio 1.0 06/03/22 19:44 Sodium 135 mmol/L (136-145) L 06/03/22 19:44 Potassium 3.9 mmol/L (3.5-5.1) 06/03/22 19:44 Chloride 103 mmol/L (98-107) 06/03/22 19:44 Carbon Dioxide 26 mmol/L (21-32) 06/03/22 19:44 Anion Gap 6 (3-11) 06/03/22 19:44 BUN 29 mg/dl (6-23) H 06/03/22 19:44 Creatinine 1.28 mg/dl (0.6-1.4) 06/03/22 19:44 Est Cr Clr Drug Dosing Not Reportable 06/03/22 19:44 Est GFR ( Amer) 58.3 ml/min 06/03/22 19:44 Est GFR (Non-Af Amer) 50.3 ml/min 06/03/22 19:44 BUN/Creatinine Ratio 22.7 (10-20) H 06/03/22 19:44 Glucose 91 mg/dl (70-99(Fasting)) 06/03/22 19:44 Lactate 1.1 mmol/L (0.4-2.0) 06/03/22 19:44 Calcium 9.6 mg/dl (8.5-10.1) 06/03/22 19:44 Magnesium 1.8 mg/dl (1.7-2.4) 06/03/22 19:44 Total Bilirubin 1.5 mg/dl (0.2-1.0) H 06/03/22 19:44 AST 13 U/L (13-39) 06/03/22 19:44 ALT < 3 U/L (7-52) L 06/03/22 19:44 Alkaline Phosphatase 83 U/L (34-104) 06/03/22 19:44 Total Creatine Kinase 48 U/L (30-223) 06/03/22 19:44 Troponin I High Sens 7.6 pg/ml (0-20) 06/03/22 19:44 C-Reactive Protein 0.91 mg/dl (0-0.5) H 06/03/22 19:44 Total Protein 6.7 gm/dl (6.0-8.3) 06/03/22 19:44 Albumin 4.5 gm/dl (3.4-5.0) 06/03/22 19:44 Globulin 2.2 gm/dl (2.5-4.0) L 06/03/22 19:44 Albumin/Globulin Ratio 2.0 (0.9-2) 06/03/22 19:44 Procalcitonin < 0.05 ng/ml (0-0.5) 06/03/22 19:44 TSH 2.980 uIu/ml (0.300-4.500) 06/03/22 19:44 Urine Color Yellow 06/03/22 20:14 Urine Appearance Clear (Clear) 06/03/22 20:14 Urine pH 5.5 (4.5-7.5) 06/03/22 20:14 Ur Specific [place] 1.013 (1.000-1.030) 06/03/22 20:14 Urine Protein Negative (Negative) 06/03/22 20:14 Urine Glucose (UA) Negative (Negative) 06/03/22 20:14 Urine Ketones Trace (Negative) H 06/03/22 20:14 Urine Blood Negative (Negative) 06/03/22 20:14 Urine Nitrite Positive (Negative) A 06/03/22 20:14 Urine Bilirubin Negative (Negative) 06/03/22 20:14 Urine Urobilinogen Negative (Negative) 06/03/22 20:14 Ur Leukocyte Esterase 2+ (Negative) H 06/03/22 20:14 Urine WBC (Auto) >30 /hpf (0-5) H 06/03/22 20:14 Urine RBC (Auto) 0-4 /hpf (0-4) 06/03/22 20:14 U Hyaline Cast (Auto) 1-5 /lpf (0-5) 06/03/22 20:14 U Epithel Cells (Auto) 0-5 /lpf (0-5) 06/03/22 20:14 Urine Bacteria (Auto) 4+ (Negative) H 06/03/22 20:14 SARS-CoV-2 (PCR) POSITIVE (Negative) A* 06/03/22 20:30 Influenza Type A (PCR) Negative (Neg) 06/03/22 20:30 Influenza Type B (PCR) Negative (Neg) 06/03/22 20:30 RSV (RT-PCR) Negative (Neg) 06/03/22 20:[address] 06/03/22 19:26 CT cervical spine wo con CT DOSE: 1216.42 mGy.cm CLINICAL HISTORY: 86 years-old Male with fall. Acute neck injury status post fall COMPARISON: None. TECHNIQUE: Multiple axial CT images of the cervical spine were obtained without contrast. A dose lowering technique was utilized adhering to the principles of ALARA. FINDINGS: Straightening of the normal cervical lordosis. Multilevel degenerative changes are similar to prior. C3 and T2 vertebral body hemangiomata. The cervical soft tissues appear unremarkable. The visualized lung apices appear clear. IMPRESSION: No acute cervical spine fracture or subluxation. ACT 112: Negative or not required by law. The above report was generated using voice recognition software. It may contain grammatical, syntax or spelling errors. Electronically signed by: Satinder Hernandez M.D. 06/03/2022 8:32 PM Chest X-Ray 06/03/22 19:26 XR chest 1V portable HISTORY: 86 years-old Male weakness acutely COMPARISON: 03/28/2022 TECHNIQUE: AP view of the chest FINDINGS: Cardiac mediastinal and hilar silhouettes are within normal limits. No pneumothorax, large pleural effusion, airspace consolidation or overt pulmonary edema. Unchanged blunting of the costophrenic angles. Degenerative changes of the shoulders and spine. Chronic left-sided rib fractures. IMPRESSION: No acute process. ACT 112: Negative or not required by law. The above report was generated using voice recognition software. It may contain grammatical, syntax or spelling errors. Electronically signed by: Satinder Hernandez M.D. 06/03/2022 8:[address] 06/03/22 19:26 CT head/brain wo con CLINICAL HISTORY: 86 years-old Male with fall. Acute head and neck injury status post fall TECHNIQUE: Multiple axial CT images of the head were obtained without contrast. A dose lowering technique was utilized adhering to the principles of ALARA. COMPARISON: CT cervical spine of same day, head CT 05/16/2022 FINDINGS: No acute intracranial hemorrhage, midline shift, intracranial mass, hydrocephalus, territorial ischemia or abnormal extra-axial collection. Involutional changes with chronic microvascular ischemic disease. The calvarium is intact. Prior bilateral lens repair. The paranasal sinuses, mas toid air cells, and middle ear cavities are clear. IMPRESSION: No acute intracranial abnormality or calvarial fracture. ACT 112: Negative or not required by law. The above report was generated using voice recognition software. It may contain grammatical, syntax or spelling errors. Electronically signed by: Satinder Hernandez M.D. 06/03/2022 8:28 PM Code Status & VTE Plan Code Status Conditional code: Chest compressions and shocking permitted. Intubation was not Patient is full resuscitation. DNI VTE Prophylaxis Plan VTE Prophylaxis will be ordered: Yes PG Care Time/CCT Total # of Minutes Spent Total Time Spent with Patient: Total time spent is greater than 50% in coordination of care (as documented) at patient's floor/unit and/or counseling patient: Coding Level of Care Code 88460 INT INP/OBS CARE 3/75MIN Diagnoses Weakness R53.1 Urinary tract infection N39.0 Hematuria presence: without hematuria Urinary tract infection type: site unspecified COVID-19 U07.1 Ambulatory dysfunction R26.2 Parkinson disease G20 Recurrent UTI (urinary tract infection) N39.0 Hypertension I10 Altered mental status R41.82 Altered mental status type: unspecified Dementia F03.90 BPH w urinary obs/LUTS N40.1; N13.8 Irregular heart rhythm I49.9 Laryngopharyngeal reflux (LPR) K21.9 (2) Urinary tract infection Hematuria presence: without hematuria Urinary tract infection type: site unspecified Qualified Code(s): N39.0 - Urinary tract infection, site not specified (8) Altered mental status Altered mental status type: unspecified Qualified Code(s): R41.82 - Altered mental status, unspecified
[2022-06-03] MEDS ORDERED: ACETAMINOPHEN 325 MG TAB PO PRN (23:35)
[2022-06-03] MEDS ORDERED: ONDANSETRON INJ 2 MG/ML 2 ML VIAL IV PRN (23:35)
[2022-06-03] MEDS: LACTATED RINGER'S 1,000 ML IV SCH (23:35)
--- NOTE | 2022-06-04 00:04 | Urology Consultation ---
Date of Consultation June 04, 2022 Assessment & Plan (1) Urinary tract infection: The patient has been admitted on the hospitalist service. Recommend proceeding as follows: Patient has been started antibiotics in form of meropenem and Levaquin. These antibiotic should be continue until culture data in the form of blood cultures and urine cultures are available at which time antibiotics can be further tailored Recommend providing hydration with IV fluids Follow serial labs I discussed with the nurse and the nurse notes that the patient is able to void but he is incontinent and therefore he has a condom catheter in place. There is concern the patient has a bladder outlet obstruction bladder scans can be performed postvoiding and if high residuals are noted straight catheterization can be employed to ensure adequate bladder emptying. Additional recommendations be forthcoming based on his clinical course as it unfolds History of Present Illness Reason for Consultation: Urinary tract infection with concern for bladder outlet obstruction Attending Physician: Ramon Fernández MD History of Present Illness This is an 86-year male who presented to the emergency department [facility] secondary to weakness. The patient presented from his personal usp as he was found to have some profound weakness with inability to walk. There also reports the patient had a low-grade fever and per reports from family members discussed with the emergency room physician they were concerned he may have had a urinary tract infection. I visited with the patient at the bedside and he offers no complaints at this time. He specifically denied any headache, fevers, shakes, or chills. He also denies any dysuria or inability to urinate. The patient does have some underlying altered mental status and therefore could not provide much in the way of meaningful history. Since arrival to [facility] he has had labs and imaging which I independent reviewed. A cervical spine CT scan showed no evidence of fractures or subluxations. Chest x-ray showed no evidence of pneumonia. A CT scan of the head showed no evidence of acute stroke. Labs include a CBC were white blood cell count platelet count were normal. Hemoglobin and hematocrit were 13.8 and 41.2. Erythrocyte sedimentation rate was normal. Coagulation studies were normal. Chemistry profile showed sodium is 135 with a normal potassium and normal creatinine. His BUN had a slight elevation at 29. His C-reactive protein had a slight elevation at 0.91. Procalcitonin was not elevated and TSH was normal. Urinalysis was positive for nitrites and 2+ leukocyte Estrace along with greater than 30 white blood cells per high-power field. There is 4+ bacteria noted on the study. He was tested for influenza a and B and RSV all of which were negative. He did test positive for COVID. Since arrival to hospital he has been started on antibiotics in the form of meropenem and Levaquin and he was no distress at the time of my interview Allergies Allergy/AdvReac Type Severity Reaction Status Date / Time No Known Allergies Allergy Verified 05/14/22 10:40 Home Medications Medication Instructions Recorded Confirmed Type amlodipine 2.5 mg tablet 2.5 mg PO QAM 12/04/21 06/03/22 History apixaban 2.5 mg tablet (Eliquis) 2.5 mg PO BID 12/04/21 06/03/22 History aspirin 81 mg capsule 81 mg PO QAM 12/04/21 06/03/22 History carbidopa 25 mg-levodopa 100 mg 1 tab PO TID 12/04/21 06/03/22 History tablet (Sinemet) cholecalciferol (vitamin D3) 50 50 mcg PO DAILY 12/04/21 06/03/22 History mcg (2,000 unit) capsule finasteride 5 mg tablet (Proscar) 5 mg PO QAM 12/04/21 06/03/22 History pantoprazole 40 mg tablet,delayed 40 mg PO QAM 12/04/21 06/03/22 History release tamsulosin 0.4 mg capsule (Flomax) 0.4 mg PO QPM 12/04/21 06/03/22 History cyanocobalamin (vitamin B-12) 1,000 mcg PO DAILY 01/21/22 06/03/22 History 1,000 mcg tablet (Vitamin B-12) oxybutynin chloride 5 mg tablet 5 mg PO Q8H PRN bladder spasms #6 01/25/22 06/03/22 Rx tabs Patient History Medical History (Updated 06/05/22 @ 10:01 by Wade Stahl) BPH w urinary obs/LUTS Dementia Diverticulosis of large intestine without perforation or abscess without bleeding Dysarthria and anarthria Dysphagia Dysphonia Hearing deficit [place] left History of basal cell carcinoma History of blood clots superficial - LLE - 2 years ago, RLE - approx 1 year ago? History of SCC (squamous cell carcinoma) of skin Hyperlipidemia Hypertension 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 stage III Irregular heart rhythm follows w/ Dr. Gayle Muscle spasm of back Other abnormalities of gait and mobility Parkinson disease Poor historian Resides in [facility] facility current resident of [facility] History History of colonoscopy History of eye surgery Rt eye History of knee surgery Rt Status post Mohs surgery Family History Other Adopted Social History Smoking Status: Never smoker Second Hand Exposure: No; Do You Dip or Chew Tobacco: No; Tobacco Cessation Education Requested by Patient: No Hx Alcohol Use: Yes Alcohol type: beer, wine and hard liquor Alcohol Intake Frequency: Monthly or Less Hx Substance Use: No Preferred Language: [place]au[place] Communication Ability: Effective Bed Teacher Required: No Beliefs That Will Affect Care: None marital status: Current Living Situation: Spouse and Personal Care Facility Current Living Situation Comment: [facility]. current occupational status: retired Other Information That Helps Us Care for You: No Feels Safe at Home: Yes Safety Concerns: Feels Safe At This Time Assistive Devices: Walker Review of Systems Review of Systems: Unobtainable due to cognitive status Physical Exam Constitutional: WD/WN, vitals as above Eyes: + conjunctival abnormality ENMT: Ears: no hearing impairment and no external ear abnormality Mouth: no oropharynx abnormality Neck: trachea midline Respiratory: normal respiratory effort; no respiratory distress and no labored breathing Cardiovascular: Rate/Rhythm: regular rate and regular rhythm Gastrointestinal (Abdomen): Soft, nonrigid, nontender to palpation Musculoskeletal: No calf tenderness Skin: no rashes Neurologic: moves all extremities Psychiatric: Alert only to person, confused to time and place Genitourinary: Patient had a condom catheter in place. Results & Data ([facility]) Vital Signs (Past 12 Hours) Vital Signs Temp Pulse Pulse Resp BP BP Pulse Ox 06/03/22 23:30 37.1 C 88 16 169/88 H 96 06/03/22 20:39 80 19 96 06/03/22 20:30 146/97 H 06/03/22 20:30 100 H 18 90 06/03/22 20:00 147/85 H 06/03/22 20:00 95 H 17 06/03/22 19:33 120 H 22 98 06/03/22 19:30 167/95 H 06/03/22 19:30 122 H 29 H 98 06/03/22 19:22 158/85 H 06/03/22 19:27 93 H 16 93 06/03/22 19:27 37.5 C 16 93 06/03/22 19:27 37.5 C 93 H 16 158/85 H 93 06/03/22 19:25 88 O2 Del Method 06/03/22 23:30 Room Air 06/03/22 20:39 06/03/22 20:30 06/03/22 20:30 06/03/22 20:00 06/03/22 20:00 06/03/22 19:33 06/03/22 19:30 06/03/22 19:30 06/03/22 19:22 06/03/22 19:27 Room Air 06/03/22 19:27 Room Air 06/03/22 19:27 Room Air 06/03/22 19:25 PG Care Time/CCT Total # of Minutes Spent Total Time Spent with Patient: Total time spent is greater than 50% in coordination of care (as documented) at patient's floor/unit and/or counseling patient: Coding Level of Care Code 77238 INT INP/OBS CARE 3/75MIN Diagnoses Urinary tract infection N39.0 Hematuria presence: without hematuria Urinary tract infection type: site unspecified (1) Urinary tract infection Hematuria presence: without hematuria Urinary tract infection type: site unspecified Qualified Code(s): N39.0 - Urinary tract infection, site not specified
[2022-06-04] MEDS: APIXABAN 2.5 MG TAB PO SCH ×3 (00:54→20:48)
[2022-06-04] MEDS: MEROPENEM 500 MG in SYRINGE 0 ML IV SCH ×3 (00:54→17:01)
[2022-06-04] MEDS ORDERED: levoFLOXacin/D5W 500 MG/100 ML BAG IV SCH (01:00)
[2022-06-04 08:01] LABS: Basophils # (auto) 0.02 K/uL (0-0.2); Basophils % (auto) 0.3 %; Hemoglobin 14.7 g/dl (14.0-18.0); Immature Granulocytes # (auto) 0.03 K/uL (0.01-0.20); Immature Granulocytes % (auto) 0.4 %; Lymphocytes # (auto) 0.55 K/uL (1.2-3.4); Lymphocytes % (auto) 7.6 %; Mean Corpuscular Hemoglobin 30.9 pg (25.0-34.0); Mean Corpuscular Hgb Conc 34.2 g/dL (32.0-36.0); Mean Corpuscular Volume 90.5 fL (80.0-100.0); Mean Platelet Volume 11.4 fL (9.4-12.4); Monocytes # (auto) 1.34 K/uL (0.11-0.59); Monocytes % (auto) 18.6 %; Neutrophils # (auto) 5.26 K/uL (1.40-6.50); Neutrophils % (auto) 73.1 %; Platelet Count 172 K/uL (130-400); RDW Standard Deviation 43.3 fL (36.4-46.3); Red Blood Count 4.75 M/uL (4.70-6.10)
[2022-06-04 08:11] LABS: Albumin Level 4.3 gm/dl (3.4-5.0); BUN Creatinine Ratio 16.8 (10-20); Calcium 9.6 mg/dl (8.5-10.1); Creatinine Clr Calc Pharmacy 40.5 ml/min; Est GFR (African American) 56.7 ml/min; Magnesium 1.9 mg/dl (1.7-2.4); Phosphorus 2.5 mg/dl (2.5-4.9); Potassium 3.8 mmol/L (3.5-5.1)
--- NOTE | 2022-06-04 09:11 | Urology Progress Note ---
Date of Service June 04, 2022 Assessment & Plan (1) Urinary tract infection: Plan: Follow-up of urinary tract infection, bladder outlet obstruction Patient febrile this AM, hemodynamically stable Fever could be related to Covid positive status UC growing gram negative bacilli, blood cultures pending Continue broad spectrum antibiotics and narrow per sensitivity data when available He currently has a condom catheter in place Recommend placement of Garcia catheter for maximum drainage and likely maintain throughout duration of treatment for UTI Continue supportive care and antibiotics per primary service Will arrange outpatient follow-up with our service for voiding trial and further management Gu will sign off Admission and Anticipated Discharge Date Admission Date: June 03, 2022 Subjective Patient seen and examined at bedside this morning. He was resting in bed, arouses to his name. No acute complaints. Denies pain. Does not offer much history at this time. Condom catheter patent and draining clear yellow urine. Chart review: Febrile this AM (Tmax 38.9 at 0740) Labs - creatinine 1.31, WBC 7.20, Hgb 14.7 UC prelim >100k cfu of gram negative bacilli; blood cultures pending Review of Systems Constitutional: as per Subjective / HPI Gastrointestinal: as per Subjective / HPI Genitourinary: + as per Subjective / HPI Physical Exam Constitutional: comfortable; no acute distress Respiratory: normal respiratory effort; no respiratory distress and no labored breathing Gastrointestinal (Abdomen): Inspection/Auscultation: abdomen normal to inspection; abdomen not distended Percussion/Palpation: abdomen soft; abdomen nontender Psychiatric: Orientation: alert and oriented to person Genitourinary: Condom catheter patent and draining clear yellow urine Results & Data ([facility]) Vital Signs (Past 12 Hours) Vital Signs Temp Pulse Resp BP Pulse Ox O2 Del Method 06/04/22 07:40 38.9 C H 74 16 151/82 H 96 Room Air 06/03/22 23:30 Room Air 06/03/22 23:30 Room Air 06/03/22 23:30 37.1 C 88 16 169/88 H 96 Room Air 06/03/22 23:30 37.1 C 88 16 169/88 H 96 Room Air PG Care Time/CCT Total # of Minutes Spent Total Time Spent with Patient: Total time spent is greater than 50% in coordination of care (as documented) at patient's floor/unit and/or counseling patient: Coding Level of Care Code None Diagnoses Urinary tract infection N39.0 Hematuria presence: without hematuria Urinary tract infection type: site unspecified (1) Urinary tract infection Hematuria presence: without hematuria Urinary tract infection type: site unspecified Qualified Code(s): N39.0 - Urinary tract infection, site not specified
[2022-06-04] MEDS: CARBIDOPA/LEVODOPA 25/100MG TAB PO SCH ×3 (09:48→20:48)
[2022-06-04] MEDS: CHOLECALCIFEROL 1,000 UNITS 25 MCG TAB PO SCH (09:49)
[2022-06-04] MEDS: CYANOCOBALAMIN (B-12) 500 MCG TABLET PO SCH (09:50)
[2022-06-04] MEDS: ASPIRIN 81 MG ECTAB PO SCH (09:50)
[2022-06-04] MEDS: amLODIPine BESYLATE 5 MG TAB PO SCH (09:50)
[2022-06-04] MEDS: PANTOprazole 40 MG TAB PO SCH (09:51)
[2022-06-04] MEDS: FINASTERIDE 5 MG TAB PO SCH (09:52)
--- NOTE | 2022-06-04 10:13 | Electrocardiogram Report ---
Test Reason : Blood Pressure : / mmHG Vent. Rate : 083 BPM Atrial Rate : 083 BPM P-R Int : 170 ms QRS Dur : 090 ms QT Int : 352 ms P-R-T Axes : 052 -07 036 degrees QTc Int : 413 ms Sinus rhythm with Premature atrial complexes Left atrial enlargement Borderline ECG When compared with ECG of 17-DEC-2021 16:12, Criteria for Inferior infarct are no longer Present Confirmed by Sundeep Roberts ([id number]) on 06/04/2022 10:12:42 AM Referred By: REFERRED SELF Confirmed By:Sundeep Roberts
[2022-06-04] MEDS: LACTATED RINGER'S 1,000 ML IV SCH (14:34)
--- NOTE | 2022-06-04 20:32 | Hospitalist Progress Note ---
Date of Service June 04, 2022 Assessment & Plan (1) COVID-19: Plan: mild without evidence of pneumonia or other complication. defer on Remdesivir or dexamethasone at this time. fever overnight could be from COVID itself or his UTI. cont airborne isolation and supportive care. suspect he is about 2-3 days into his COVID illness. (2) Urinary tract infection: Plan: 2nd to GNR. cont current IV abx (meropenem alone should suffice until culture has finalized). although he has had foleys in the past his most recent catheter was d/c early in May. would not call this a complicated/catheter-associated UTI. would be helpful to check PSA to see if any evidence of prostatitis. (3) Parkinson disease: Plan: cont sinemet will need PT/OT at high risk of developing deconditioning rapidly from #1 (4) Dementia: Plan: presumed 2nd to #3 (5) Superficial thrombophlebitis: Plan: recurrent, LEs - per records likely reason for chronic Eliquis usage I cannot find any prior h/o DVT, PE, or a.fib (6) Hypertension: Plan: BPs controlled at this time caution with increase in flomax due to propensity for most patients with Parkinson's to have orthostasis (7) BPH w urinary obs/LUTS: Plan: cont dual therapy w/ finasteride & flomax (8) DVT prophylaxis: Plan: eliquis BID Plan family updated at bedside Admission and Anticipated Discharge Date Admission Date: June 03, 2022 Subjective patient difficult to understand because of dysarthric/slurry speech from parkinson's disease he was confused, calling his (who was in the room) his "grandmother" daughter also present in the room daughter mentions that her father has had mild cough despite COVID he is eating well reports she tested positive this am for COVID back at [facility] she has minimal URI symptoms only but no fever Review of Systems Review of Systems: Unobtainable due to cognitive status Physical Exam Physical Exam: gen - NAD, very difficult to understand his speech, resting comfortably in bed mouth - MMM neck - no JVD heart - irregular (extra beats), s1 s2, no murmur lungs - CTA b/l abd - soft NT ND BS+ ext - no edema, pulses 2+ b/l Results & Data Results & Data ([facility]) Vital Signs (Past 12 Hours) Vital Signs Temp Pulse Resp BP Pulse Ox O2 Del Method 06/04/22 16:58 37.1 C 62 18 118/72 96 Room Air 06/04/22 10:30 36.8 C 06/04/22 10:40 Room Air Laboratory Results Laboratory Results - last 48 hr 06/03/22 06/03/22 06/03/22 19:44 19:44 19:44 WBC 6.11 RBC 4.47 L Hgb 13.8 L Hct 41.2 L MCV 92.2 MCH 30.9 MCHC 33.5 RDW Std Deviation 44.2 RDW Coeff of Ramy 13.1 Plt Count 164 MPV 11.3 Immature Gran % (Auto) 0.7 Neut % (Auto) 73.3 Lymph % (Auto) 6.5 Ford % (Auto) 18.5 Eos % (Auto) 0.7 Baso % (Auto) 0.3 Neut # (Auto) 4.48 Lymph # (Auto) 0.40 L Ford # (Auto) 1.13 H Eos # (Auto) 0.04 Baso # (Auto) 0.02 Immature Gran # (Auto) 0.04 ESR PT 11.3 INR 1.1 APTT 26.6 PTT Ratio 1.0 Sodium 135 L Potassium 3.9 Chloride 103 Carbon Dioxide 26 Anion Gap 6 BUN 29 H Creatinine 1.28 Est Cr Clr Drug Dosing Not Reportable Est GFR ( Amer) 58.3 Est GFR (Non-Af Amer) 50.3 BUN/Creatinine Ratio 22.7 H Glucose 91 Lactate Calcium 9.6 Phosphorus Magnesium 1.8 Total Bilirubin 1.5 H AST 13 ALT < 3 L Alkaline Phosphatase 83 Total Creatine Kinase 48 Troponin I High Sens 7.6 C-Reactive Protein Total Protein 6.7 Albumin 4.5 Globulin 2.2 L Albumin/Globulin Ratio 2.0 Procalcitonin TSH Urine Color Urine Appearance Urine pH Ur Specific [place] Urine Protein Urine Glucose (UA) Urine Ketones Urine Blood Urine Nitrite Urine Bilirubin Urine Urobilinogen Ur Leukocyte Esterase Urine WBC (Auto) Urine RBC (Auto) U Hyaline Cast (Auto) U Epithel Cells (Auto) Urine Bacteria (Auto) Nasal Screen MRSA (PCR) SARS-CoV-2 (PCR) Influenza Type A (PCR) Influenza Type B (PCR) RSV (RT-PCR) 02/06/03/22 06/03/22 19:44 19:44 19:44 WBC RBC Hgb Hct MCV MCH MCHC RDW Std Deviation RDW Coeff of Ramy Plt Count MPV Immature Gran % (Auto) Neut % (Auto) Lymph % (Auto) Ford % (Auto) Eos % (Auto) Baso % (Auto) Neut # (Auto) Lymph # (Auto) Ford # (Auto) Eos # (Auto) Baso # (Auto) Immature Gran # (Auto) ESR 10 PT INR APTT PTT Ratio Sodium Potassium Chloride Carbon Dioxide Anion Gap BUN Creatinine Est Cr Clr Drug Dosing Est GFR ( Amer) Est GFR (Non-Af Amer) BUN/Creatinine Ratio Glucose Lactate 1.1 Calcium Phosphorus Magnesium Total Bilirubin AST ALT Alkaline Phosphatase Total Creatine Kinase Troponin I High Sens C-Reactive Protein Total Protein Albumin Globulin Albumin/Globulin Ratio Procalcitonin TSH 2.980 Urine Color Urine Appearance Urine pH Ur Specific [place] Urine Protein Urine Glucose (UA) Urine Ketones Urine Blood Urine Nitrite Urine Bilirubin Urine Urobilinogen Ur Leukocyte Esterase Urine WBC (Auto) Urine RBC (Auto) U Hyaline Cast (Auto) U Epithel Cells (Auto) Urine Bacteria (Auto) Nasal Screen MRSA (PCR) SARS-CoV-2 (PCR) Influenza Type A (PCR) Influenza Type B (PCR) RSV (RT-PCR) 06/03/22 06/03/22 06/03/22 19:44 19:44 20:14 WBC RBC Hgb Hct MCV MCH MCHC RDW Std Deviation RDW Coeff of Ramy Plt Count MPV Immature Gran % (Auto) Neut % (Auto) Lymph % (Auto) Ford % (Auto) Eos % (Auto) Baso % (Auto) Neut # (Auto) Lymph # (Auto) Ford # (Auto) Eos # (Auto) Baso # (Auto) Immature Gran # (Auto) ESR PT INR APTT PTT Ratio Sodium Potassium Chloride Carbon Dioxide Anion Gap BUN Creatinine Est Cr Clr Drug Dosing Est GFR ( Amer) Est GFR (Non-Af Amer) BUN/Creatinine Ratio Glucose Lactate Calcium Phosphorus Magnesium Total Bilirubin AST ALT Alkaline Phosphatase Total Creatine Kinase Troponin I High Sens C-Reactive Protein 0.91 H Total Protein Albumin Globulin Albumin/Globulin Ratio Procalcitonin < 0.05 TSH Urine Color Yellow Urine Appearance Clear Urine pH 5.5 Ur Specific [place] 1.013 Urine Protein Negative Urine Glucose (UA) Negative Urine Ketones Trace H Urine Blood Negative Urine Nitrite Positive A Urine Bilirubin Negative Urine Urobilinogen Negative Ur Leukocyte Esterase 2+ H Urine WBC (Auto) >30 H Urine RBC (Auto) 0-4 U Hyaline Cast (Auto) 1-5 U Epithel Cells (Auto) 0-5 Urine Bacteria (Auto) 4+ H Nasal Screen MRSA (PCR) SARS-CoV-2 (PCR) Influenza Type A (PCR) Influenza Type B (PCR) RSV (RT-PCR) 06/03/22 06/04/22 06/04/22 20:30 07:21 07:21 WBC 7.20 RBC 4.75 Hgb 14.7 Hct 43.0 MCV 90.5 MCH 30.9 MCHC 34.2 RDW Std Deviation 43.3 RDW Coeff of Ramy 13.0 Plt Count 172 MPV 11.4 Immature Gran % (Auto) 0.4 Neut % (Auto) 73.1 Lymph % (Auto) 7.6 Ford % (Auto) 18.6 Eos % (Auto) 0.0 Baso % (Auto) 0.3 Neut # (Auto) 5.26 Lymph # (Auto) 0.55 L Ford # (Auto) 1.34 H Eos # (Auto) 0.00 Baso # (Auto) 0.02 Immature Gran # (Auto) 0.03 ESR PT INR APTT PTT Ratio Sodium 138 Potassium 3.8 Chloride 104 Carbon Dioxide 26 Anion Gap 8 BUN 22 Creatinine 1.31 Est Cr Clr Drug Dosing 40.5 Est GFR ( Amer) 56.7 Est GFR (Non-Af Amer) 49.0 BUN/Creatinine Ratio 16.8 Glucose 94 Lactate Calcium 9.6 Phosphorus 2.5 Magnesium 1.9 Total Bilirubin AST ALT Alkaline Phosphatase Total Creatine Kinase Troponin I High Sens C-Reactive Protein Total Protein Albumin 4.3 Globulin Albumin/Globulin Ratio Procalcitonin TSH Urine Color Urine Appearance Urine pH Ur Specific [place] Urine Protein Urine Glucose (UA) Urine Ketones Urine Blood Urine Nitrite Urine Bilirubin Urine Urobilinogen Ur Leukocyte Esterase Urine WBC (Auto) Urine RBC (Auto) U Hyaline Cast (Auto) U Epithel Cells (Auto) Urine Bacteria (Auto) Nasal Screen MRSA (PCR) SARS-CoV-2 (PCR) POSITIVE A* Influenza Type A (PCR) Negative Influenza Type B (PCR) Negative RSV (RT-PCR) Negative 06/04/22 Unknown WBC RBC Hgb Hct MCV MCH MCHC RDW Std Deviation RDW Coeff of Ramy Plt Count MPV Immature Gran % (Auto) Neut % (Auto) Lymph % (Auto) Ford % (Auto) Eos % (Auto) Baso % (Auto) Neut # (Auto) Lymph # (Auto) Ford # (Auto) Eos # (Auto) Baso # (Auto) Immature Gran # (Auto) ESR PT INR APTT PTT Ratio Sodium Potassium Chloride Carbon Dioxide Anion Gap BUN Creatinine Est Cr Clr Drug Dosing Est GFR ( Amer) Est GFR (Non-Af Amer) BUN/Creatinine Ratio Glucose Lactate Calcium Phosphorus Magnesium Total Bilirubin AST ALT Alkaline Phosphatase Total Creatine Kinase Troponin I High Sens C-Reactive Protein Total Protein Albumin Globulin Albumin/Globulin Ratio Procalcitonin TSH Urine Color Urine Appearance Urine pH Ur Specific [place] Urine Protein Urine Glucose (UA) Urine Ketones Urine Blood Urine Nitrite Urine Bilirubin Urine Urobilinogen Ur Leukocyte Esterase Urine WBC (Auto) Urine RBC (Auto) U Hyaline Cast (Auto) U Epithel Cells (Auto) Urine Bacteria (Auto) Nasal Screen MRSA (PCR) Negative SARS-CoV-2 (PCR) Influenza Type A (PCR) Influenza Type B (PCR) RSV (RT-PCR) PG Care Time/CCT Total # of Minutes Spent Total Time Spent with Patient: Total time spent is greater than 50% in coordination of care (as documented) at patient's floor/unit and/or counseling patient: Coding Level of Care Code 32419 SUB INP/OBS CARE 2MIN Diagnoses COVID-19 U07.1 Urinary tract infection N39.0 Hematuria presence: without hematuria Urinary tract infection type: site unspecified Parkinson disease G20 Dementia F03.90 Superficial thrombophlebitis I80.9 Hypertension I10 BPH w urinary obs/LUTS N40.1; N13.8 DVT prophylaxis Z29.9 (2) Urinary tract infection Hematuria presence: without hematuria Urinary tract infection type: site unspecified Qualified Code(s): N39.0 - Urinary tract infection, site not specified
[2022-06-04] MEDS ORDERED: TAMSULOSIN HCL 0.4 MG CAP PO SCH (21:00)
[2022-06-05] MEDS: MEROPENEM 500 MG in SYRINGE 0 ML IV SCH (01:38)
[2022-06-05 08:04] LABS: Basophils # (auto) 0.02 K/uL (0-0.2); Basophils % (auto) 0.5 %; Eosinophils # (auto) 0.01 K/uL (0-0.50); Eosinophils % (auto) 0.2 %; Hematocrit (blood only) 39.9 % (42.0-52.0); Hemoglobin 13.4 g/dl (14.0-18.0); Immature Granulocytes # (auto) 0.03 K/uL (0.01-0.20); Immature Granulocytes % (auto) 0.7 %; Lymphocytes # (auto) 0.87 K/uL (1.2-3.4); Mean Corpuscular Hemoglobin 30.9 pg (25.0-34.0); Mean Corpuscular Hgb Conc 33.6 g/dL (32.0-36.0); Mean Corpuscular Volume 92.1 fL (80.0-100.0); Mean Platelet Volume 11.9 fL (9.4-12.4); Monocytes # (auto) 1.08 K/uL (0.11-0.59); Monocytes % (auto) 24.8 %; Neutrophils # (auto) 2.35 K/uL (1.40-6.50); Neutrophils % (auto) 53.8 %; Platelet Count 143 K/uL (130-400); RDW Coefficient of Variation 13.3 % (11.5-14.5); RDW Standard Deviation 45.6 fL (36.4-46.3); Red Blood Count 4.33 M/uL (4.70-6.10); White Blood Count 4.36 K/ul (4.8-10.8)
[2022-06-05 08:20] LABS: Albumin Level 3.7 gm/dl (3.4-5.0); BUN Creatinine Ratio 18.4 (10-20); Calcium 8.9 mg/dl (8.5-10.1); Creatinine Clr Calc Pharmacy 36.1 ml/min; Est GFR (African American) 49.4 ml/min; Est GFR (Non-African American) 42.6 ml/min; Magnesium 1.8 mg/dl (1.7-2.4); Phosphorus 3.5 mg/dl (2.5-4.9); Potassium 4.1 mmol/L (3.5-5.1)
[2022-06-05] MEDS: cefTRIAXone SODIUM 1,000 MG in DEXTROSE 5% 50 ML IV SCH (09:41)
[2022-06-05] MEDS: amLODIPine BESYLATE 5 MG TAB PO SCH (09:41)
[2022-06-05] MEDS: APIXABAN 2.5 MG TAB PO SCH ×2 (09:42→21:26)
[2022-06-05] MEDS: CHOLECALCIFEROL 1,000 UNITS 25 MCG TAB PO SCH (09:42)
[2022-06-05] MEDS: CARBIDOPA/LEVODOPA 25/100MG TAB PO SCH ×3 (09:42→21:25)
[2022-06-05] MEDS: ASPIRIN 81 MG ECTAB PO SCH (09:42)
[2022-06-05] MEDS: CYANOCOBALAMIN (B-12) 500 MCG TABLET PO SCH (09:42)
[2022-06-05] MEDS: FINASTERIDE 5 MG TAB PO SCH (09:42)
[2022-06-05] MEDS: PANTOprazole 40 MG TAB PO SCH (09:42)
[2022-06-05] MEDS: OXYBUTYNIN CHLORIDE 5 MG TAB PO PRN (09:42)
[2022-06-05] MEDS: TAMSULOSIN HCL 0.4 MG CAP PO SCH (21:26)
--- NOTE | 2022-06-05 21:55 | Hospitalist Progress Note ---
Date of Service June 05, 2022 Assessment & Plan (1) COVID-19: Plan: mild - without evidence of pneumonia or other complication. cont to defer on Remdesivir or dexamethasone at this time. cont airborne isolation and supportive care. suspect he is about 3-4 days into his COVID illness but thus far doing quite well. (2) Urinary tract infection: Plan: 2nd to klebsiella pneumoniae. d/c meropenem. change to rocephin. then PO keflex at d/c. psa did return normal thus prostatitis unlikely. although he has had foleys in the past his most recent catheter was d/c early in May. would not call this a complicated/catheter-associated UTI. would Rx 7-10 days in total. (3) Parkinson disease: Plan: cont sinemet cont PT/OT at high risk of developing deconditioning rapidly from #1 (4) Dementia: Plan: presumed 2nd to #3 (5) Superficial thrombophlebitis: Plan: recurrent, LEs - per records likely reason for chronic Eliquis usage I cannot find any prior h/o DVT, PE, or a.fib cont Eliquis 2.5mg BID (6) Hypertension: Plan: BPs controlled at this time due to propensity for most patients with Parkinson's to have orthostasis will lower the flomax dose to 0.4mg from the recently increased 0.8mg dose (the higher dose usually doesn't lead to improved BPH in my experience) (7) BPH w urinary obs/LUTS: Plan: cont dual therapy w/ finasteride & flomax (8) DVT prophylaxis: Plan: eliquis BID (9) Acute metabolic encephalopathy: Plan: 2nd to COVID 2nd to UTI waxing/waning - but confusion is pleasant no Rx treat UTI supportive care Plan family updated (daughter, ) this evening PT, OT ashley will tell us if he is strong enough to return home w/ at d/c or if he will need rehab daughter who is physical therapist is hopeful he can return home with outpatient PT Admission and Anticipated Discharge Date Admission Date: June 03, 2022 Subjective pt unable to provide any meaningful history 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" can't tell me the year or why he is here per staff eating/drinking well incontinent of stool thurston draining urine w/o difficulty no other concerns per staff Review of Systems Review of Systems: Unobtainable due to cognitive status Physical Exam Physical Exam: gen - NAD, resting in bed; speech a bit more clear today and more talkative/animated but still very confused mouth - MMM neck - no JVD heart - irregular (extra beats), s1 s2, no murmur lungs - CTA b/l abd - soft NT ND BS+ ext - no edema, pulses 2+ b/l Results & Data Results & Data ([facility]) Vital Signs (Past 12 Hours) Vital Signs Temp Pulse Resp BP Pulse Ox O2 Del Method 06/05/22 19:08 36.9 C 67 15 113/66 96 Room Air 06/05/22 15:39 36.5 C 66 16 101/68 98 Room Air 06/05/22 09:56 Room Air Laboratory Results Laboratory Results - last 24 hr 06/05/22 06/05/22 06/05/22 07:00 07:00 07:02 WBC 4.36 L RBC 4.33 L Hgb 13.4 L Hct 39.9 L MCV 92.1 MCH 30.9 MCHC 33.6 RDW Std Deviation 45.6 RDW Coeff of Ramy 13.3 Plt Count 143 MPV 11.9 Immature Gran % (Auto) 0.7 Neut % (Auto) 53.8 Lymph % (Auto) 20.0 Winston % (Auto) 24.8 Eos % (Auto) 0.2 Baso % (Auto) 0.5 Neut # (Auto) 2.35 Lymph # (Auto) 0.87 L Winston # (Auto) 1.08 H Eos # (Auto) 0.01 Baso # (Auto) 0.02 Immature Gran # (Auto) 0.03 Sodium 138 Potassium 4.1 Chloride 106 Carbon Dioxide 26 Anion Gap 6 BUN 27 H Creatinine 1.47 H Est Cr Clr Drug Dosing 36.1 Est GFR ( Amer) 49.4 Est GFR (Non-Af Amer) 42.6 BUN/Creatinine Ratio 18.4 Glucose 90 Calcium 8.9 Phosphorus 3.5 D Magnesium 1.8 Albumin 3.7 Prostate Specific Ag 1.534 Diagnostic Findings urine cx - kleb pneumoniae - sensitive to ancef, rocephin PG Care Time/CCT Total # of Minutes Spent Total Time Spent with Patient: Total time spent is greater than 50% in coordination of care (as documented) at patient's floor/unit and/or counseling patient: Coding Level of Care Code 82367 SUB INP/OBS CARE MIN Diagnoses COVID-19 U07.1 Urinary tract infection N39.0 Hematuria presence: without hematuria Urinary tract infection type: site unspecified Parkinson disease G20 Dementia F03.90 Superficial thrombophlebitis I80.9 Hypertension I10 BPH w urinary obs/LUTS N40.1; N13.8 DVT prophylaxis Z29.9 Acute metabolic encephalopathy G93.41 (2) Urinary tract infection Hematuria presence: without hematuria Urinary tract infection type: site unspecified Qualified Code(s): N39.0 - Urinary tract infection, site not specified
[2022-06-06 09:38] LABS: Albumin Level 3.7 gm/dl (3.4-5.0); BUN Creatinine Ratio 19.3 (10-20); Calcium 8.9 mg/dl (8.5-10.1); Creatinine Clr Calc Pharmacy 37.9 ml/min; Est GFR (African American) 52.4 ml/min; Est GFR (Non-African American) 45.2 ml/min; Phosphorus 3.9 mg/dl (2.5-4.9); Potassium 4.3 mmol/L (3.5-5.1)
[2022-06-06 09:55] LABS: Basophils # (auto) 0.01 K/uL (0-0.2); Basophils % (auto) 0.2 %; Eosinophils # (auto) 0.05 K/uL (0-0.50); Hematocrit (blood only) 41.2 % (42.0-52.0); Hemoglobin 13.8 g/dl (14.0-18.0); Immature Granulocytes # (auto) 0.02 K/uL (0.01-0.20); Immature Granulocytes % (auto) 0.4 %; Lymphocytes # (auto) 1.07 K/uL (1.2-3.4); Lymphocytes % (auto) 21.5 %; Mean Corpuscular Hemoglobin 31.1 pg (25.0-34.0); Mean Corpuscular Hgb Conc 33.5 g/dL (32.0-36.0); Mean Corpuscular Volume 92.8 fL (80.0-100.0); Mean Platelet Volume 11.8 fL (9.4-12.4); Monocytes # (auto) 0.87 K/uL (0.11-0.59); Monocytes % (auto) 17.5 %; Neutrophils # (auto) 2.95 K/uL (1.40-6.50); Neutrophils % (auto) 59.4 %; Platelet Count 134 K/uL (130-400); RDW Coefficient of Variation 13.3 % (11.5-14.5); RDW Standard Deviation 45.3 fL (36.4-46.3); Red Blood Count 4.44 M/uL (4.70-6.10); White Blood Count 4.97 K/ul (4.8-10.8)
[2022-06-06] MEDS: ASPIRIN 81 MG ECTAB PO SCH (10:02)
[2022-06-06] MEDS: APIXABAN 2.5 MG TAB PO SCH ×2 (10:02→20:42)
[2022-06-06] MEDS: CARBIDOPA/LEVODOPA 25/100MG TAB PO SCH ×3 (10:02→20:43)
[2022-06-06] MEDS: PANTOprazole 40 MG TAB PO SCH (10:02)
[2022-06-06] MEDS: CYANOCOBALAMIN (B-12) 500 MCG TABLET PO SCH (10:03)
[2022-06-06] MEDS: FINASTERIDE 5 MG TAB PO SCH (10:03)
[2022-06-06] MEDS: cefTRIAXone SODIUM 1,000 MG in DEXTROSE 5% 50 ML IV SCH (10:03)
[2022-06-06] MEDS: amLODIPine BESYLATE 5 MG TAB PO SCH (10:03)
[2022-06-06] MEDS: CHOLECALCIFEROL 1,000 UNITS 25 MCG TAB PO SCH (10:03)
--- NOTE | 2022-06-06 20:13 | Hospitalist Progress Note ---
Date of Service June 06, 2022 Assessment & Plan (1) COVID-19: Plan: mild - without evidence of pneumonia or other complication. cont to defer on Remdesivir or dexamethasone at this time as O2 sats are wnl and no significant pulm symptoms. mild rales on exam today - check cxr, r/o any developing pneumonia. cont airborne isolation and supportive care. suspect he is about 5 days into his COVID illness but thus far doing quite well. (2) Urinary tract infection: Plan: 2nd to klebsiella pneumoniae. cont rocephin. then PO keflex - change to such tomorrow. psa did return normal thus prostatitis unlikely. although he has had foleys in the past his most recent catheter was d/c early in May. would not call this a complicated/catheter-associated UTI. would Rx 7-10 days in total. (3) Parkinson disease: Plan: cont sinemet cont PT/OT at high risk of developing deconditioning rapidly from #1 (4) Dementia: Plan: presumed 2nd to #3 (5) Superficial thrombophlebitis: Plan: recurrent, LEs - per records likely reason for chronic Eliquis usage I cannot find any prior h/o DVT, PE, or a.fib cont Eliquis 2.5mg BID (6) Hypertension: Plan: BPs controlled at this time due to propensity for most patients with Parkinson's to have orthostasis will lower the flomax dose to 0.4mg from the recently increased 0.8mg dose (the higher dose usually doesn't lead to improved BPH in my experience) (7) BPH w urinary obs/LUTS: Plan: cont dual therapy w/ finasteride & flomax (8) DVT prophylaxis: Plan: eliquis BID (9) Acute metabolic encephalopathy: Plan: 2nd to COVID 2nd to UTI waxing/waning - but confusion is pleasant and stable no Rx needed treat UTI supportive care Plan family updated (daughter, ) this evening by phone PT, OT evals done; 60-65% functional loss; may be difficult to return home with who has COVID herself daughter hopeful for d/c to home but understands it may be challenging to pull such off given his weakness Admission and Anticipated Discharge Date Admission Date: June 03, 2022 Subjective per staff 2-assist for transfers and getting to chair needing assistance for eating rare cough patient remembered that his family came to visit today denied pain any location Review of Systems Review of Systems: Unobtainable due to cognitive status Physical Exam Physical Exam: gen - NAD, resting in bed, pleasant confusion mouth - MMM neck - no JVD heart - irregular (extra beats), s1 s2, no murmur lungs - CTA b/l apices, mild fine dry rales bases b/l abd - soft NT ND BS+ ext - no edema, pulses 2+ b/l Results & Data Results & Data ([facility]) Vital Signs (Past 12 Hours) Vital Signs Temp Pulse Resp BP Pulse Ox O2 Del Method 06/06/22 10:16 Room Air 06/06/22 07:31 36.9 C 64 18 124/77 96 Room Air 06/05/22 21:30 Room Air Intake and Output 06/06/22 06/06/22 06/06/22 06:59 14:59 22:59 Intake Total 400 / 760 60 / 300 240 / 300 Output Total 1900 / 3425 650 / 650 Balance -1500 / -2665 60 / -350 -410 / -350 Intake: IV 60 / 60 cefTRIAXone SODIUM 1,000 mg In 60 / 60 Dextrose 5% 50 ml @ 120 mls/hr IV Q24H [facility] Rx#:[id number] Oral 400 / 700 240 / 240 Output: Urine Amount (Catheter) 1900 / 3425 650 / 650 Garcia/Indwelling 1900 / 3425 650 / 650 Laboratory Results Laboratory Results - last 48 hr 06/05/22 06/06/22 06/06/22 07:02 08:53 08:53 WBC 4.97 RBC 4.44 L Hgb 13.8 L Hct 41.2 L MCV 92.8 MCH 31.1 MCHC 33.5 RDW Std Deviation 45.3 RDW Coeff of Ramy 13.3 Plt Count 134 MPV 11.8 Immature Gran % (Auto) 0.4 Neut % (Auto) 59.4 Lymph % (Auto) 21.5 [place] % (Auto) 17.5 Eos % (Auto) 1.0 Baso % (Auto) 0.2 Neut # (Auto) 2.95 Lymph # (Auto) 1.07 L [place] # (Auto) 0.87 H Eos # (Auto) 0.05 Baso # (Auto) 0.01 Immature Gran # (Auto) 0.02 Sodium 138 Potassium 4.3 Chloride 105 Carbon Dioxide 29 Anion Gap 4 BUN 27 H Creatinine 1.40 Est Cr Clr Drug Dosing 37.9 Est GFR ( Amer) 52.4 Est GFR (Non-Af Amer) 45.2 BUN/Creatinine Ratio 19.3 Glucose 109 H Calcium 8.9 Phosphorus 3.9 Albumin 3.7 Prostate Specific Ag 1.534 PG Care Time/CCT Total # of Minutes Spent Total Time Spent with Patient: Total time spent is greater than 50% in coordination of care (as documented) at patient's floor/unit and/or counseling patient: Coding Level of Care Code 57529 SUB INP/OBS CARE 05/01MIN Diagnoses COVID-19 U07.1 Urinary tract infection N39.0 Hematuria presence: without hematuria Urinary tract infection type: site unspecified Parkinson disease G20 Dementia F03.90 Superficial thrombophlebitis I80.9 Hypertension I10 BPH w urinary obs/LUTS N40.1; N13.8 DVT prophylaxis Z29.9 Acute metabolic encephalopathy G93.41 (2) Urinary tract infection Hematuria presence: without hematuria Urinary tract infection type: site unspecified Qualified Code(s): N39.0 - Urinary tract infection, site not specified
[2022-06-06] MEDS: TAMSULOSIN HCL 0.4 MG CAP PO SCH (20:44)
--- NOTE | 2022-06-06 20:45 | XRay Report ---
XR chest 1V portable CLINICAL HISTORY: bibasilar rales, COVID; ?pneumonia TECHNIQUE: Single frontal radiograph of the chest was obtained. Comparison: Comparison is made to chest radiograph 06/03/2022 FINDINGS: No lines and tubes are seen. The cardiomediastinal silhouette is normal. Atelectasis is noted in the lung bases. No evidence of pleural effusion or pneumothorax. Chronic left rib fractures are seen. IMPRESSION: No acute abnormalities and in particular no radiographic evidence of pneumonia. ACT 112: Negative or not required by law. Electronically signed by: Ramesh Castillo M.D. 06/06/2022 8:43 PM
[2022-06-07] MEDS: APIXABAN 2.5 MG TAB PO SCH ×2 (08:49→20:03)
[2022-06-07] MEDS: ASPIRIN 81 MG ECTAB PO SCH (08:49)
[2022-06-07] MEDS: CARBIDOPA/LEVODOPA 25/100MG TAB PO SCH ×3 (08:50→20:03)
[2022-06-07] MEDS: PANTOprazole 40 MG TAB PO SCH (08:52)
[2022-06-07] MEDS: CHOLECALCIFEROL 1,000 UNITS 25 MCG TAB PO SCH (08:52)
[2022-06-07] MEDS: OXYBUTYNIN CHLORIDE 5 MG TAB PO PRN (09:04)
[2022-06-07] MEDS: CYANOCOBALAMIN (B-12) 500 MCG TABLET PO SCH (09:05)
[2022-06-07] MEDS: FINASTERIDE 5 MG TAB PO SCH (09:05)
[2022-06-07] MEDS: amLODIPine BESYLATE 5 MG TAB PO SCH (09:06)
[2022-06-07] MEDS: cefTRIAXone SODIUM 1,000 MG in DEXTROSE 5% 50 ML IV SCH (09:07)
[2022-06-07] MEDS: TAMSULOSIN HCL 0.4 MG CAP PO SCH (20:03)
--- NOTE | 2022-06-07 21:04 | Hospitalist Progress Note ---
Date of Service June 07, 2022 Assessment & Plan (1) COVID-19: Plan: modest-mild disease - without evidence of pneumonia or other complication. main symptom - fatigue/weakness. cont to defer on Remdesivir or dexamethasone at this time as O2 sats are wnl and no significant pulm symptoms. cxr 06/06/22 without infiltrates. cont airborne isolation and supportive care. suspect he is about 5-6 days into his COVID illness but thus far very stable. (2) Urinary tract infection: Plan: 2nd to klebsiella pneumoniae. day #5 of abx. convert to PO keflex 500mg BID. psa normal thus prostatitis unlikely. although he has had foleys in the past his most recent catheter was d/c early in May. would not call this a complicated/catheter-associated UTI. would Rx 10 days in total. could consider d/c of thurston and voiding trial in a few days. (3) Parkinson disease: Plan: cont sinemet cont PT/OT has developed deconditioning due to COVID + UTI PT/OT both advising rehab, but family declines such, stating they want him to remain hospitalized until he is at his usual physical baseline -- then return home to the [facility] [place] with his at [facility] (4) Dementia: Plan: presumed 2nd to #3 no issues no agitation (5) Superficial thrombophlebitis: Plan: recurrent, LEs - per records likely reason for chronic Eliquis usage cont Eliquis 2.5mg BID (6) Hypertension: Plan: BPs controlled at this time on norvasc 2.5mg daily + flomax 0.4mg daily (7) BPH w urinary obs/LUTS: Plan: cont dual therapy w/ finasteride & flomax thurston (8) DVT prophylaxis: Plan: eliquis BID (9) Acute metabolic encephalopathy: Plan: 2nd to COVID 2nd to UTI waxing/waning - but confusion is pleasant and stable - and seems better overall no Rx needed treat UTI supportive care Plan family updated (daughter, ) yesterday evening by phone PT, OT evals done; 60-65% functional loss; rehab advised family declining rehab -- they want him hospitalized until he returns to physical baseline this is not prudent as the risk of worsening deconditioning is more likely to occur than a trajectory of increasing strength and mobility will need to d/w family once again Admission and Anticipated Discharge Date Admission Date: June 03, 2022 Subjective no events overnight no changes in status per staff no agitation needing assistance of 2 still for most transfers etc during the visit he was playing with his cell phone he was not agitated could not tell me where he was or why he was here stated "I want to talk with my daughter" denied pain any location I did not hear him cough at any time during the visit Review of Systems Review of Systems: Unobtainable due to cognitive status Physical Exam Physical Exam: gen - NAD, resting in bed comfortably, pleasant confusion mouth - MMM neck - no JVD heart - irregular (extra beats), s1 s2, no murmur lungs - CTA b/l apices, minimal fine dry rales bases b/l (improved from yesterday) abd - soft NT ND BS+ ext - no edema, pulses 2+ b/l neuro - masked facies from PD; rigidity noted of limbs Results & Data Results & Data ([facility]) Vital Signs (Past 12 Hours) Vital Signs Temp Pulse Resp BP Pulse Ox O2 Del Method 06/07/22 13:55 36.7 C 94 H 16 105/65 96 Room Air PG Care Time/CCT Total # of Minutes Spent Total Time Spent with Patient: Total time spent is greater than 50% in coordination of care (as documented) at patient's floor/unit and/or counseling patient: Coding Level of Care Code 52923 SUB INP/OBS CARE 05/01MIN Diagnoses COVID-19 U07.1 Urinary tract infection N39.0 Hematuria presence: without hematuria Urinary tract infection type: site unspecified Parkinson disease G20 Dementia F03.90 Superficial thrombophlebitis I80.9 Hypertension I10 BPH w urinary obs/LUTS N40.1; N13.8 DVT prophylaxis Z29.9 Acute metabolic encephalopathy G93.41 (2) Urinary tract infection Hematuria presence: without hematuria Urinary tract infection type: site unspecified Qualified Code(s): N39.0 - Urinary tract infection, site not specified
[2022-06-08] MEDS ORDERED: bisacodyL 10 MG SUPP PR STA (09:01)
[2022-06-08] MEDS: amLODIPine BESYLATE 5 MG TAB PO SCH (09:08)
[2022-06-08] MEDS: APIXABAN 2.5 MG TAB PO SCH ×2 (09:09→20:19)
[2022-06-08] MEDS: ASPIRIN 81 MG ECTAB PO SCH (09:10)
[2022-06-08] MEDS: CARBIDOPA/LEVODOPA 25/100MG TAB PO SCH ×3 (09:10→20:19)
[2022-06-08] MEDS: cephALEXin 500 MG CAP PO SCH ×2 (09:12→20:19)
[2022-06-08] MEDS: CHOLECALCIFEROL 1,000 UNITS 25 MCG TAB PO SCH (09:13)
[2022-06-08] MEDS: FINASTERIDE 5 MG TAB PO SCH (09:14)
[2022-06-08] MEDS: PANTOprazole 40 MG TAB PO SCH (09:14)
[2022-06-08] MEDS: CYANOCOBALAMIN (B-12) 500 MCG TABLET PO SCH (09:14)
[2022-06-08] MEDS: TAMSULOSIN HCL 0.4 MG CAP PO SCH (20:19)
[2022-06-08] MEDS: ARTIFICIAL TEARS OP PRN (20:30)
--- NOTE | 2022-06-08 21:06 | Hospitalist Progress Note ---
Date of Service June 08, 2022 Assessment & Plan (1) COVID-19: Plan: resolving. has had no evidence of pneumonia or other complication. main symptom - fatigue/weakness - but improving. cont to defer on Remdesivir or dexamethasone at this time. cxr 06/06/22 without infiltrates. cont airborne isolation and supportive care. suspect he is about 7 days into his COVID illness. (2) Urinary tract infection: Plan: 2nd to klebsiella pneumoniae. day #6 of abx. cont keflex 500mg BID. psa normal thus prostatitis unlikely. although he has had foleys in the past his most recent catheter was d/c early in May. would not call this a complicated/catheter-associated UTI. would Rx 10 days in total. could consider d/c of thurston and voiding trial in a few days. (3) Parkinson disease: Plan: cont sinemet cont PT/OT has developed deconditioning due to COVID + UTI PT/OT both advising rehab, but family declines such, stating they want him to remain hospitalized until he is at his usual physical baseline -- then return home to the [facility] [place] with his at [facility] (4) Dementia: Plan: presumed 2nd to #3 no issues no agitation (5) Superficial thrombophlebitis: Plan: recurrent, LEs - per records likely reason for chronic Eliquis usage cont Eliquis 2.5mg BID (6) Hypertension: Plan: BPs controlled at this time on norvasc 2.5mg daily + flomax 0.4mg daily (7) BPH w urinary obs/LUTS: Plan: cont dual therapy w/ finasteride & flomax thurston consider voiding trial in a few days (8) DVT prophylaxis: Plan: eliquis BID (9) Acute metabolic encephalopathy: Plan: 2nd to COVID 2nd to UTI seems improved / at his usual baseline Plan PT, OT evals done; 60-65% functional loss; SNF rehab advised family declining rehab -- they want him hospitalized until he returns to physical baseline this is not ideal as the risk of worsening deconditioning is more likely to occur than a trajectory of increasing strength and mobility will update family tomorrow Admission and Anticipated Discharge Date Admission Date: June 03, 2022 Subjective no events today eating well had BM today patient watching TV in bed during my assessment friendly, pleasant, no agitation - but severe dementia and only oriented to person Review of Systems Review of Systems: cv - denies chest pain pulm - denies dyspnea GI - denies abd pain Physical Exam Physical Exam: gen - NAD, resting in bed comfortably mouth - MMM neck - no JVD heart - irregular (extra beats), s1 s2, 2-3/6 systolic murmur heard multiple locations but loudest over LLSB lungs - CTA b/l apices, scant fine dry rales bases b/l abd - soft NT BS+ ext - no edema, pulses 2+ b/l neuro - masked facies from PD Results & Data Results & Data ([facility]) Vital Signs (Past 12 Hours) Vital Signs Temp Pulse Resp BP Pulse Ox O2 Del Method 06/08/22 20:15 36.7 C 64 16 149/69 H 99 Room Air 06/08/22 14:37 36.2 C L 64 131/74 99 Room Air PG Care Time/CCT Total # of Minutes Spent Total Time Spent with Patient: Total time spent is greater than 50% in coordination of care (as documented) at patient's floor/unit and/or counseling patient: Coding Level of Care Code 62198 SUB INP/OBS CARE 05/01MIN Diagnoses COVID-19 U07.1 Urinary tract infection N39.0 Hematuria presence: without hematuria Urinary tract infection type: site unspecified Parkinson disease G20 Dementia F03.90 Superficial thrombophlebitis I80.9 Hypertension I10 BPH w urinary obs/LUTS N40.1; N13.8 DVT prophylaxis Z29.9 Acute metabolic encephalopathy G93.41 (2) Urinary tract infection Hematuria presence: without hematuria Urinary tract infection type: site unspecified Qualified Code(s): N39.0 - Urinary tract infection, site not specified
[2022-06-09] MEDS: CHOLECALCIFEROL 1,000 UNITS 25 MCG TAB PO SCH (07:38)
[2022-06-09] MEDS: FINASTERIDE 5 MG TAB PO SCH (07:39)
[2022-06-09] MEDS: PANTOprazole 40 MG TAB PO SCH (07:39)
[2022-06-09] MEDS: CYANOCOBALAMIN (B-12) 500 MCG TABLET PO SCH (07:39)
[2022-06-09] MEDS: cephALEXin 500 MG CAP PO SCH ×2 (07:39→21:55)
[2022-06-09] MEDS: CARBIDOPA/LEVODOPA 25/100MG TAB PO SCH ×3 (07:39→21:56)
[2022-06-09] MEDS: APIXABAN 2.5 MG TAB PO SCH ×2 (07:39→21:55)
[2022-06-09] MEDS: amLODIPine BESYLATE 5 MG TAB PO SCH (07:39)
[2022-06-09] MEDS: ASPIRIN 81 MG ECTAB PO SCH (07:39)
[2022-06-09] MEDS: TAMSULOSIN HCL 0.4 MG CAP PO SCH (21:55)
[2022-06-09] MEDS: ARTIFICIAL TEARS OP PRN (22:00)
--- NOTE | 2022-06-09 22:22 | Hospitalist Progress Note ---
Date of Service June 09, 2022 Assessment & Plan (1) COVID-19: Plan: resolving. has had no evidence of pneumonia or other complication. cont to defer on Remdesivir or dexamethasone at this time. cxr 06/06/22 without infiltrates. cont airborne isolation and supportive care. suspect he is about 7-8 days into his COVID illness. cont PT/OT due to severe deconditioning. (2) Urinary tract infection: Plan: 2nd to klebsiella pneumoniae. day #7 of abx. cont keflex 500mg BID. psa normal thus prostatitis unlikely. although he has had foleys in the past his most recent catheter was d/c early in May. would not call this a complicated/catheter-associated UTI. would Rx 10 days in total. could consider d/c of thurston and voiding trial in 2-3 days. (3) Parkinson disease: Plan: cont sinemet cont PT/OT has developed deconditioning due to COVID + UTI PT/OT both advising rehab, but family declines such, stating they want him to remain hospitalized until he is at his usual physical baseline -- then return home to [place] [facility] [place] his at [facility] will try and speak with his about this - he will not do well upon transition home due to severe weakness his fall risk is very high (4) Dementia: Plan: presumed 2nd to #3 no issues no agitation (5) Superficial thrombophlebitis: Plan: recurrent, LEs - per records likely reason for chronic Eliquis usage cont Eliquis 2.5mg BID (6) Hypertension: Plan: BPs controlled at this time on norvasc 2.5mg daily + flomax 0.4mg daily (7) BPH w urinary obs/LUTS: Plan: cont dual therapy w/ finasteride & flomax thurston consider voiding trial in a few days (8) DVT prophylaxis: Plan: eliquis BID (9) Acute metabolic encephalopathy: Plan: 2nd to COVID 2nd to UTI now at usual baseline (10) Constipation: Plan: add senna add miralax dulcolax suppos prn Plan PT, OT evals done; 60-65% functional loss; SNF rehab advised family declining rehab -- they want him hospitalized until he returns to physical baseline this is not ideal as the risk of worsening deconditioning is more likely to occur than a trajectory of increasing strength and mobility tried calling his this evening - no answer, left voicemail will attempt again tomorrow on Friday Admission and Anticipated Discharge Date Admission Date: June 03, 2022 Subjective no events overnight resting comfortably in bed pleasantly confused - baseline no agitation eating well by report he is unable to provide any meaningful history/ros other than "I feel good" getting up to the chair with assistance no BM today Review of Systems Review of Systems: Unobtainable due to cognitive status Physical Exam Physical Exam: gen - NAD, resting in bed comfortably mouth - MMM neck - no JVD heart - irregular (extra beats), s1 s2, 2-3/6 systolic murmur heard multiple locations but loudest over LLSB - no change lungs - scant fine dry rales bases b/l - improved abd - soft NT BS+; again mild distension ext - no edema, pulses 2+ b/l Results & Data Results & Data ([facility]) Vital Signs (Past 12 Hours) Vital Signs Temp Pulse Resp BP Pulse Ox O2 Del Method 06/09/22 21:53 36.7 C 64 16 138/84 98 Room Air 06/09/22 15:05 36.4 C L 64 18 124/71 98 Room Air PG Care Time/CCT Total # of Minutes Spent Total Time Spent with Patient: Total time spent is greater than 50% in coordination of care (as documented) at patient's floor/unit and/or counseling patient: Coding Level of Care Code 28839 SUB INP/OBS CARE 05/01MIN Diagnoses COVID-19 U07.1 Urinary tract infection N39.0 Hematuria presence: without hematuria Urinary tract infection type: site unspecified Parkinson disease G20 Dementia F03.90 Superficial thrombophlebitis I80.9 Hypertension I10 BPH w urinary obs/LUTS N40.1; N13.8 DVT prophylaxis Z29.9 Acute metabolic encephalopathy G93.41 Constipation K59.00 (2) Urinary tract infection Hematuria presence: without hematuria Urinary tract infection type: site unspecified Qualified Code(s): N39.0 - Urinary tract infection, site not specified
[2022-06-10] MEDS: cephALEXin 500 MG CAP PO SCH ×2 (07:32→22:00)
[2022-06-10] MEDS: amLODIPine BESYLATE 5 MG TAB PO SCH (07:32)
[2022-06-10] MEDS: APIXABAN 2.5 MG TAB PO SCH ×2 (07:32→22:00)
[2022-06-10] MEDS: FINASTERIDE 5 MG TAB PO SCH (07:32)
[2022-06-10] MEDS: CYANOCOBALAMIN (B-12) 500 MCG TABLET PO SCH (07:32)
[2022-06-10] MEDS: CARBIDOPA/LEVODOPA 25/100MG TAB PO SCH ×3 (07:32→22:00)
[2022-06-10] MEDS: PANTOprazole 40 MG TAB PO SCH (07:32)
[2022-06-10] MEDS: ASPIRIN 81 MG ECTAB PO SCH (07:32)
[2022-06-10] MEDS: CHOLECALCIFEROL 1,000 UNITS 25 MCG TAB PO SCH (07:32)
[2022-06-10 07:58] LABS: Hemoglobin 14.5 g/dl (14.0-18.0); Mean Corpuscular Hemoglobin 30.8 pg (25.0-34.0); Mean Corpuscular Hgb Conc 34.5 g/dL (32.0-36.0); Mean Corpuscular Volume 89.2 fL (80.0-100.0); Mean Platelet Volume 11.7 fL (9.4-12.4); Platelet Count 143 K/uL (130-400); RDW Coefficient of Variation 12.7 % (11.5-14.5); RDW Standard Deviation 41.3 fL (36.4-46.3); Red Blood Count 4.71 M/uL (4.70-6.10); White Blood Count 4.13 K/ul (4.8-10.8)
[2022-06-10 08:44] LABS: BUN Creatinine Ratio 25.4 (10-20); Calcium 9.3 mg/dl (8.5-10.1); Creatinine Clr Calc Pharmacy 46.5 ml/min; Est GFR (African American) 67.1 ml/min; Est GFR (Non-African American) 57.9 ml/min; Potassium 4.6 mmol/L (3.5-5.1)
[2022-06-10] MEDS: SENNA 8.6 MG TAB PO SCH (10:38)
[2022-06-10] MEDS: POLYETHYLENE (MIRALAX) 17 GM PACK PO SCH (10:39)
--- NOTE | 2022-06-10 20:47 | Hospitalist Progress Note ---
Date of Service June 10, 2022 Assessment & Plan (1) COVID-19: Plan: resolving. has had no evidence of pneumonia or other complication. mildly low Wbc count is chronic (baseline 5-6 per the EMR). mildly low platelets likely due to COVID infection/bone marrow suppression - stable. cont to defer on Remdesivir or dexamethasone at this time. cxr 06/06/22 without infiltrates. cont airborne isolation and supportive care. suspect he is about 8-9 days into his COVID illness. cont PT/OT due to severe deconditioning. (2) Urinary tract infection: Plan: 2nd to klebsiella pneumoniae. day #8 of abx. plan 10 days in total. cont keflex 500mg BID. psa normal thus prostatitis unlikely. although he has had foleys in the past his most recent catheter was d/c early in May. would not call this a complicated/catheter-associated UTI. at 's request will perform voiding trial tomorrow am; d/c thurston 06/11/22. (3) Parkinson disease: Plan: cont sinemet cont PT/OT has developed deconditioning due to COVID + UTI PT/OT both advising rehab, but family declines such, stating they want him to remain hospitalized until he is at his usual physical baseline -- then return home [place] [facility] [place] at [facility] his fall risk is very high I spoke extensively with the pt's by phone this evening she still is intent on bringing him home rather than having him placed in rehab at [facility] she states "we have a good therapist; he will come to the house; he's excellent" tried to explain that even if he gets PT several days a week [id number] Mr Davenport will be very weak and is needing considerable assistance for most ADLs explained that PT/OT still advising rehab she again said she is not having him placed - he's coming home (4) Dementia: Plan: presumed 2nd to #3 no issues no agitation (5) Superficial thrombophlebitis: Plan: recurrent, LEs - per records likely reason for chronic Eliquis usage cont Eliquis 2.5mg BID (6) Hypertension: Plan: BPs controlled at this time cont norvasc 2.5mg daily + flomax 0.4mg daily (7) BPH w urinary obs/LUTS: Plan: cont dual therapy w/ finasteride & flomax thurston d/c thurston 3/7 AM voiding trial (8) DVT prophylaxis: Plan: eliquis BID (9) Acute metabolic encephalopathy: Plan: 2nd to COVID 2nd to UTI encephalopathy resolved now at usual baseline (10) Constipation: Plan: cont senna cont miralax dulcolax suppos prn (11) Conjunctivitis: Plan: bilateral likely viral from COVID in the event he has bacterial infection start erythromycin eye ointment daily at HS artificial tears prn could have family bring pataday or similar allergy eye drop from home if needed Plan PT, OT evals done; 60-65% functional loss; SNF rehab advised family still declining rehab -- they want him hospitalized until he returns to physical baseline this is not ideal as the risk of worsening deconditioning is more likely to occur than a trajectory of increasing strength and mobility described to his today by phone the PT session details from today and their ongoing recommendation for rehab despite such insistent on bringing him home will inform social work of 's decision Admission and Anticipated Discharge Date Admission Date: June 03, 2022 Subjective no events today did work with PT only walked 10-15 feet needs assistance with all ADLs PT still advising rehab post-d/c eating ok during the visit he was resting comfortably unable to contribute any meaningful history although did say his eyes were itchy Review of Systems Review of Systems: Unobtainable due to cognitive status Physical Exam Physical Exam: gen - NAD, resting in bed comfortably eyes - conjunctival injection b/l, no drainage mouth - MMM neck - no JVD heart - irregular, s1 s2, 2-3/6 systolic murmur heard multiple locations but loudest over LLSB - no change lungs - scant fine dry rales bases b/l - no change abd - soft NT BS+ ND ext - no edema, pulses 2+ b/l Results & Data Results & Data ([facility]) Vital Signs (Past 12 Hours) Vital Signs Temp Pulse Resp BP Pulse Ox O2 Del Method 06/10/22 15:03 36.3 C L 58 L 18 122/68 99 Room Air Laboratory Results Laboratory Results - last 48 hr 06/10/22 06/10/22 07:16 07:16 WBC 4.13 L RBC 4.71 Hgb 14.5 Hct 42.0 MCV 89.2 MCH 30.8 MCHC 34.5 RDW Std Deviation 41.3 RDW Coeff of Ramy 12.7 Plt Count 143 MPV 11.7 Sodium 137 Potassium 4.6 Chloride 109 H Carbon Dioxide 23 Anion Gap 5 BUN 29 H Creatinine 1.14 Est Cr Clr Drug Dosing 46.5 Est GFR ( Amer) 67.1 Est GFR (Non-Af Amer) 57.9 BUN/Creatinine Ratio 25.4 H Glucose 93 Calcium 9.3 PG Care Time/CCT Total # of Minutes Spent Total Time Spent with Patient: Total time spent is greater than 50% in coordination of care (as documented) at patient's floor/unit and/or counseling patient: Coding Level of Care Code 94214 SUB INP/OBS CARE 2/35MIN Diagnoses COVID-19 U07.1 Urinary tract infection N39.0 Hematuria presence: without hematuria Urinary tract infection type: site unspecified Parkinson disease G20 Dementia F03.90 Superficial thrombophlebitis I80.9 Hypertension I10 BPH w urinary obs/LUTS N40.1; N13.8 DVT prophylaxis Z29.9 Acute metabolic encephalopathy G93.41 Constipation K59.00 Conjunctivitis H10.9 (2) Urinary tract infection Hematuria presence: without hematuria Urinary tract infection type: site unspecified Qualified Code(s): N39.0 - Urinary tract infection, site not specified
[2022-06-10] MEDS: TAMSULOSIN HCL 0.4 MG CAP PO SCH (22:00)
[2022-06-11] MEDS: POLYETHYLENE (MIRALAX) 17 GM PACK PO SCH (08:51)
[2022-06-11] MEDS: amLODIPine BESYLATE 5 MG TAB PO SCH (08:52)
[2022-06-11] MEDS: FINASTERIDE 5 MG TAB PO SCH (08:53)
[2022-06-11] MEDS: SENNA 8.6 MG TAB PO SCH (08:53)
[2022-06-11] MEDS: PANTOprazole 40 MG TAB PO SCH (08:53)
[2022-06-11] MEDS: cephALEXin 500 MG CAP PO SCH (08:53)
[2022-06-11] MEDS: APIXABAN 2.5 MG TAB PO SCH (08:53)
[2022-06-11] MEDS: ASPIRIN 81 MG ECTAB PO SCH (08:53)
[2022-06-11] MEDS: CYANOCOBALAMIN (B-12) 500 MCG TABLET PO SCH (08:53)
[2022-06-11] MEDS: CARBIDOPA/LEVODOPA 25/100MG TAB PO SCH ×2 (08:53→15:13)
[2022-06-11] MEDS: CHOLECALCIFEROL 1,000 UNITS 25 MCG TAB PO SCH (08:53)
--- NOTE | 2022-06-11 12:21 | Discharge Summary ---
Date of Service June 11, 2022 Admission HPI Per Admitting Provider The patient is a 86-year-old male with a past medical history including Parkinson's disease, recurrent tract infection, BPH with LUTS, hypertension, pneumonia, laryngeal pharyngeal reflux, urinary retention, squamous cell carcinoma, basal cell carcinoma, irregular heart rhythm, B12 deficiency, and bladder spasm. The patient presents to the emergency department with generalized weakness in both lower extremities and fatigue from his personal senior living. Patient has a long history of recurrent urinary tract infections secondary to BPH with LUTS, including infections over the past year due to Klebsiella pneumonia, Pseudomonas aeruginosa, Enterococcus faecalis and Escherichia fergusonii. Significant laboratories: RSV negative, flu negative, COVID-19 positive. Urinalysis positive for infection. Imaging studies: CT head negative, CT cervical spine negative, chest x-ray negative. Patient was given Zosyn 4.5 g IV by the ED Principal Diagnosis 1. COVID-19 2. UTI 3. Debility Discharge Exam GENERAL: 86 yo wd/wn elderly WM. Pleasantly confused. NAD. LUNGS: Clear to auscultation bilaterally. CARDIOVASCULAR: Regular rate and rhythm. Discharge Data Allergies Allergy/AdvReac Type Severity Reaction Status Date / Time No Known Allergies Allergy Verified 05/14/22 10:40 Consultations 06/03/22 21:28 ED Decision to Admit Stat 06/03/22 23:35 Consult Urology Routine Ordered Studies Cervical Spine CT 06/03/22 19:26 CT cervical spine wo con CT DOSE: 1216.42 mGy.cm CLINICAL HISTORY: 86 years-old Male with fall. Acute neck injury status post fall COMPARISON: None. TECHNIQUE: Multiple axial CT images of the cervical spine were obtained without contrast. A dose lowering technique was utilized adhering to the principles of ALARA. FINDINGS: Straightening of the normal cervical lordosis. Multilevel degenerative changes are similar to prior. C3 and T2 vertebral body hemangiomata. The cervical soft tissues appear unremarkable. The visualized lung apices appear clear. IMPRESSION: No acute cervical spine fracture or subluxation. ACT 112: Negative or not required by law. The above report was generated using voice recognition software. It may contain grammatical, syntax or spelling errors. Electronically signed by: Satinder Hernandez M.D. 06/03/2022 8:32 PM Chest X-Ray 06/03/22 19:26 XR chest 1V portable HISTORY: 86 years-old Male weakness acutely COMPARISON: 03/28/2022 TECHNIQUE: AP view of the chest FINDINGS: Cardiac mediastinal and hilar silhouettes are within normal limits. No pneumothorax, large pleural effusion, airspace consolidation or overt pulmonary edema. Unchanged blunting of the costophrenic angles. Degenerative changes of the shoulders and spine. Chronic left-sided rib fractures. IMPRESSION: No acute process. ACT 112: Negative or not required by law. The above report was generated using voice recognition software. It may contain grammatical, syntax or spelling errors. Electronically signed by: Satinder Hernandez M.D. 06/03/2022 8:[address] 06/03/22 19:26 CT head/brain wo con CLINICAL HISTORY: 86 years-old Male with fall. Acute head and neck injury status post fall TECHNIQUE: Multiple axial CT images of the head were obtained without contrast. A dose lowering technique was utilized adhering to the principles of ALARA. COMPARISON: CT cervical spine of same day, head CT 05/16/2022 FINDINGS: No acute intracranial hemorrhage, midline shift, intracranial mass, hydrocephalus, territorial ischemia or abnormal extra-axial collection. Involutional changes with chronic microvascular ischemic disease. The calvarium is intact. Prior bilateral lens repair. The paranasal sinuses, mastoid air cells, and middle ear cavities are clear. IMPRESSION: No acute intracranial abnormality or calvarial fracture. ACT 112: Negative or not required by law. The above report was generated using voice recognition software. It may contain grammatical, syntax or spelling errors. Electronically signed by: Satinder Hernandez M.D. 06/03/2022 8:28 PM Chest X-Ray 06/06/22 18:26 XR chest 1V portable CLINICAL HISTORY: bibasilar rales, COVID; ?pneumonia TECHNIQUE: Single frontal radiograph of the chest was obtained. Comparison: Comparison is made to chest radiograph 06/03/2022 FINDINGS: No lines and tubes are seen. The cardiomediastinal silhouette is normal. Atelectasis is noted in the lung bases. No evidence of pleural effusion or pneumothorax. Chronic left rib fractures are seen. IMPRESSION: No acute abnormalities and in particular no radiographic evidence of pneumonia. ACT 112: Negative or not required by law. Electronically signed by: Ramesh Castillo M.D. 06/06/2022 8:43 PM Hospital Course (1) COVID-19: resolving. has had no evidence of pneumonia or other complication. cont to defer on Remdesivir or dexamethasone at this time. cxr 06/06/22 without infiltrates. cont airborne isolation and supportive care. suspect he is about 7-8 days into his COVID illness. PT/OT due to severe deconditioning-recommended rehab, pt's family has refused (2) Urinary tract infection: 2nd to klebsiella pneumoniae. day #8 of abx, cont keflex 500mg BID. psa normal thus prostatitis unlikely. although he has had foleys in the past his most recent catheter was d/c early in May. would not call this a complicated/catheter-associated UTI. requested removal of thurston which was removed this AM - pt failed voiding trail with PVR of 432 ml thurston replaced by RN prior to dc - will need to f/u with urology as outpatient (3) Parkinson disease: cont sam has developed deconditioning due to COVID + UTI PT/OT both advising rehab, but family declines such, stating they want him to remain hospitalized until he is at his usual physical baseline -- then [place] [facility] [place] [facility] will try and speak with his about this - he will not do well upon transition home due to severe weakness his fall risk is very high (4) Dementia: presumed 2nd to #3 no issues no agitation (5) Superficial thrombophlebitis: recurrent, LEs - per records likely reason for chronic Eliquis usage cont Eliquis 2.5mg BID (6) Hypertension: BPs controlled at this time on norvasc 2.5mg daily + flomax 0.4mg daily (7) BPH w urinary obs/LUTS: cont dual therapy w/ finasteride & flomax (8) Acute metabolic encephalopathy: 2nd to COVID and UTI resolved and now at usual baseline (9) Constipation: given senna and miralax dulcolax suppos prn can continue with stool softeners OTC at home Plan PT, OT evals done; 60-65% functional loss; SNF rehab advised Family adamantly declining rehab despite him being very high risk for fall and could sustain injuries that could be serious enough to result in (if he were to strike his head as he is on low dose Apixaban) -- they requested he be hospitalized until he returns to physical baseline which is not ideal as the risk of worsening deconditioning is more likely to occur than a trajectory of increasing strength and mobility. He is medically stable for discharge at this time. Since family continues to refuse rehab, will plan to dc home with . She is going to reach out to private [employer] companies. She is also refusing home health. Discharge home today, she will arrange for someone to assist her in getting patient in and out of the car to get him home. Advise close PCP follow up. Plan d/w Dr. Al. Total Time Total Time Spent Total Time Spent (In Minutes): >30 minutes Discharge Plan Discharge Items Patient Disposition: Home - Home Health Services Reason For Visit: WEAKNESS- UNABLE TO AMBULATE X1 HOUR Discharge Diagnosis: COVID-19 Weakness Activity: Resume your previous activity Non-emergency contact: Primary Care Provider Call non-emergency contact if: you have any medication questions and your symptoms worsen Follow-up/Referrals: Aki Marion MD [Primary Care Provider] - Diet: Regular Addtl Attending Provider Instructions: You were hospitalized with COVID-19 infection. Fortunately, your symptoms were very mild and you only required supportive treatment. You were also found to have a urinary tract infection for which you were treated with antibiotics. You will need another 2 days of antibiotics after today. You will be sent home on Keflex 500mg, one pill twice a day. Next dose of this is due this evening (06/11/22) before bed. Due to your weakness, you were assessed by physical and occupational therapists who felt strongly that you should go to into physical rehabilitation. Unfortunately, you and your family have declined this and therefore are assuming the responsibility and the risk of returning home in your weakened state. The risk includes falling and sustaining injuries that could be further debilitating and require you to return back to the hospital. Your family requested a trial without your urinary catheter and therefore it was removed prior to your discharge from the hospital. However, you continued to have problems with retaining urine in your bladder. You will need to follow up with urology at [facility]. Please call their office to schedule an appointment if you do not already have one. It is advised that you follow up closely with your primary care provider within 3 to 5 days of discharge from the hospital. If you have any questions following your discharge, you can call the non emergency number listed on your discharge paperwork. In the event of a medical emergency, call 911. Pending Studies at Discharge: No Stand-Alone Forms: My [facility], Smoking Cessation Medications and DC Order Prescriptions: New cephalexin 500 mg Capsule 500 mg PO BID Qty: 5 0RF Continued amlodipine 2.5 mg tablet 2.5 mg PO QAM aspirin 81 mg capsule 81 mg PO QAM Eliquis 2.5 mg tablet 2.5 mg PO BID tamsulosin [Flomax] 0.4 mg capsule 0.4 mg PO QPM pantoprazole 40 mg tablet,delayed release (DR/EC) 40 mg PO QAM finasteride [Proscar] 5 mg tablet 5 mg PO QAM carbidopa-levodopa [Sinemet] 25-100 mg tablet 1 tab PO TID cholecalciferol (vitamin D3) 50 mcg (2,000 unit) capsule 50 mcg PO DAILY cyanocobalamin (vitamin B-12) [Vitamin B-12] 1,000 mcg Tablet 1,000 mcg PO DAILY oxybutynin chloride 5 mg tablet 5 mg PO Q8H PRN (Reason: bladder spasms) Qty: 6 0RF Discharge Orders: Discharge Order (Routine); Ordered 06/11/22 Ordered By: Kaitlynn Sam Admission Data Admit Date/Time: 06/03/22 23:32 Attending Provider: Edgardo Al Admit Provider: Ramon Fernández Primary Care Provider: Aki Marion Other Providers: Ramon Fernández Coding Level of Care Code 26527 INP/OBS DISCH >30 MIN Diagnoses COVID-19 U07.1 Urinary tract infection N39.0 Hematuria presence: without hematuria Urinary tract infection type: site unspecified Parkinson disease G20 Dementia F03.90 Superficial thrombophlebitis I80.9 Hypertension I10 BPH w urinary obs/LUTS N40.1; N13.8 Acute metabolic encephalopathy G93.41 Constipation K59.00
[2022-06-11 14:45] VITALS: BP 151/78; TEMP 97.3; O2SAT 97
[2022-06-11 15:31] VITALS: PULSE 66
[2022-06-11] MEDS ORDERED: ERYTHROMYCIN OP OINT 5 MG/GM 3.5 GM TUBE OPB SCH (21:00)
== END 2022-06-11 17:03 | disposition home health service (06) | DRG 177 ==
LOC: ED 19:18 → 3N 23:15 → SUATTDRO 23:32

== ENCOUNTER 2022-07-25 17:33 | Inpatient (IN) ==
--- NOTE | 2022-07-25 17:38 | ED Triage Note ---
Date of Service July 25, 2022 History of Present Illness This patient was briefly evaluated while in triage. An abbreviated physical exam was performed. This patient is a 86-year-old Male who presents to the ED for evaluation of increasing weakness, poor intake, dark urine. Pt. having difficulty verbalizing symptoms. Hx. parkinsons, UTI. PT. has positive leuks, blood, and nitrites in urine. Pt. referred from [facility]. Physical Exam VITALS: Vitals are noted on the nurse's note and reviewed by myself. GENERAL: This is an 86 year old male, in no acute distress, nondiaphoretic, well-developed well-nourished. SKIN: No obvious rashes, edema, erythema HEAD: Normocephalic atraumatic. EYES: Conjunctivae without injection, sclerae without icterus. NECK: No JVD. LUNGS: No retractions or accessory muscle use. MUSCULOSKELETAL: Presents in a wheelchair. NEURO: Patient was alert and oriented to person place and time. No focal neurological deficits. Initial orders for labs and / or imaging were placed and patient was placed in the waiting area until a bed is available. Please see further documentation for the full ED course.
[2022-07-25 18:14] LABS: Basophils # (auto) 0.03 K/uL (0-0.2); Basophils % (auto) 0.2 %; Eosinophils # (auto) 0.07 K/uL (0-0.50); Eosinophils % (auto) 0.5 %; Hematocrit (blood only) 40.9 % (42.0-52.0); Hemoglobin 13.9 g/dl (14.0-18.0); Immature Granulocytes # (auto) 0.14 K/uL (0.01-0.20); Immature Granulocytes % (auto) 0.9 %; Lymphocytes # (auto) 0.92 K/uL (1.2-3.4); Mean Corpuscular Hemoglobin 31.2 pg (25.0-34.0); Mean Corpuscular Volume 91.9 fL (80.0-100.0); Mean Platelet Volume 10.7 fL (9.4-12.4); Monocytes # (auto) 1.29 K/uL (0.11-0.59); Monocytes % (auto) 8.5 %; Neutrophils # (auto) 12.77 K/uL (1.40-6.50); Neutrophils % (auto) 83.9 %; Platelet Count 228 K/uL (130-400); RDW Coefficient of Variation 13.7 % (11.5-14.5); RDW Standard Deviation 46.6 fL (36.4-46.3); Red Blood Count 4.45 M/uL (4.70-6.10); White Blood Count 15.22 K/ul (4.8-10.8)
[2022-07-25 18:31] LABS: Troponin I High Sensitivity 6.8 pg/ml (0-20)
[2022-07-25 18:32] LABS: Alanine Aminotransferase 14 U/L (7-52); Albumin Globulin Ratio 1.7 (0.9-2); Albumin Level 4.4 gm/dl (3.4-5.0); Alkaline Phosphatase 90 U/L (34-104); Anion Gap 7 (3-11); Aspartate Aminotransferase 18 U/L (13-39); BUN Creatinine Ratio 21.8 (10-20); Bilirubin,Total 1.1 mg/dl (0.2-1.0); Blood Urea Nitrogen 31 mg/dl (6-23); Calcium 9.5 mg/dl (8.6-10.3); Carbon Dioxide 25 mmol/L (21-32); Chloride 105 mmol/L (98-107); Est GFR (African American) 51.5 ml/min; Est GFR (Non-African American) 44.4 ml/min; Globulin 2.6 gm/dl (2.5-4.0); Glucose 103 mg/dl (70-99(Fasting)); Magnesium 1.8 mg/dl (1.7-2.4); Potassium 4.4 mmol/L (3.5-5.1); Sodium 137 mmol/L (136-145)
[2022-07-25] MEDS ORDERED: SODIUM CHLORIDE 0.9% 1000ML 500 ML IV ONE (18:46)
[2022-07-25] MEDS ORDERED: cefTRIAXone SODIUM 2,000 MG/70 ML BAG IV STA (18:49)
--- NOTE | 2022-07-25 18:53 | Emergency Department Note ---
History of Present Illness General Chief complaint: Urinary Symptoms Stated complaint: UTI,FEVER Time Seen by Provider: 07/25/22 18:35 Source: patient, family ( was at the bedside), RN notes reviewed and old records reviewed (I have reviewed records from his most recent urine culture as well as hospitalization) Mode of arrival: ambulatory Limitations: no limitations History of Present Illness Maximum Pain Intensity: 10 This patient is a an 86-year-old male who comes in after having fever and weakness. He has ongoing problems with urinary infections his says he had 3 or 4 recently his last 1 was in May at the time he had COVID he had Klebsiella which was sensitive to cephalosporins. He was feeling weak all over and Luis Loving decreased p.o. intake had temperature 100.8 apparently his urine also had blood nitrates and it. They sent him up here. He denies any dysuria hematuria he says as he is sitting there he feels okay denies pain anywhere denies abdominal pain or back pain no nausea or vomiting. He has a history of BPH and is followed by Dr. Phelps from urology. Denies chest pain or cough no change in vision his thought he was slurring his words a little bit earlier but she says she cannot understand him at baseline. He does not seem to be slurring his speech now and has no other focal neurologic deficits. No headache no sore throat no swelling mouth lips or tongue. No rash. no fall Home Medications Medication Instructions Recorded Confirmed Type amlodipine 2.5 mg tablet 2.5 mg PO QAM 12/04/21 07/25/22 History apixaban 2.5 mg tablet (Eliquis) 2.5 mg PO BID 12/04/21 07/25/22 History aspirin 81 mg capsule 81 mg PO QAM 12/04/21 07/25/22 History carbidopa 25 mg-levodopa 100 mg 1 tab PO TID 12/04/21 07/25/22 History tablet (Sinemet) cholecalciferol (vitamin D3) 50 50 mcg PO DAILY 12/04/21 07/25/22 History mcg (2,000 unit) capsule finasteride 5 mg tablet (Proscar) 5 mg PO QAM 12/04/21 07/25/22 History pantoprazole 40 mg tablet,delayed 40 mg PO 3XWK 12/04/21 07/25/22 History release tamsulosin 0.4 mg capsule (Flomax) 0.4 mg PO QPM 12/04/21 07/25/22 History cyanocobalamin (vitamin B-12) 1,000 mcg PO DAILY 01/21/22 07/25/22 History 1,000 mcg tablet (Vitamin B-12) lisinopril 2.5 mg tablet 2.5 mg PO DAILY 07/25/22 07/25/22 History psyllium husk 3.4 gram/5.4 gram 1 tbsp PO DAILY 07/25/22 07/25/22 History oral powder (Metamucil) Allergies Allergy/AdvReac Type Severity Reaction Status Date / Time No Known Allergies Allergy Verified 06/20/22 09:01 Past Med/Surg History Medical History BPH w urinary obs/LUTS Dementia Diverticulosis of large intestine without perforation or abscess without bleeding Dysarthria and anarthria Dysphagia Dysphonia Hearing deficit SAV[place]ONGA left History of basal cell carcinoma History of blood clots superficial - LLE - 2 years ago, RLE - approx 1 year ago? History of SCC (squamous cell carcinoma) of skin Hyperlipidemia Hypertension 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 stage III Irregular heart rhythm follows w/ Dr. Gayle Muscle spasm of back Other abnormalities of gait and mobility Parkinson disease Poor historian Resides in jail facility current resident of [facility] Surgical History History of colonoscopy History of eye surgery Rt eye History of knee surgery Rt Status post Mohs surgery Family History Other Adopted Social History Smoking Status: Former smoker Second Hand Exposure: No; Do You Dip or Chew Tobacco: No; Hx Alcohol Use: Yes Alcohol type: beer, wine and hard liquor Alcohol Intake Frequency: Monthly or Less Hx Substance Use: No Preferred Language: Slovenian Communication Ability: Effective Family Law Paralegal Required: No Beliefs That Will Affect Care: None marital status: Current Living Situation: Spouse and Personal Care Facility Current Living Situation Comment: [facility]. current occupational status: retired Other Information That Helps Us Care for You: No Feels Safe at Home: Yes Safety Concerns: Feels Safe At This Time Assistive Devices: Walker Review of Systems A total of 10 systems reviewed and were otherwise negative Physical Exam Vital Signs Vital Signs - 24 hr 07/25/22 17:36 07/25/22 19:59 07/25/22 19:57 Temperature 37.5 C Temperature Source Temporal Artery Scan Pulse Rate 77 97 H 85 Pulse Rhythm Regular Pulse Strength Normal Respiratory Rate 20 Respiratory Effort / Characteristics Non-Labored Spontaneous Respiratory Depth Normal Blood Pressure 131/72 Blood Pressure Mean 91 Pulse Oximetry 98 97 Oxygen Delivery Method Room Air Room Air Sepsis Recent Fever Within 48 Hours No Sepsis New/Unexplained Change in Mental Status No Sepsis Action Taken by Nursing No Action Required General: Well developed well nourished older male who appears in no acute distress, breathing comfortably on room air. Normal speech. He has baseline mild dementia but answers questions appropriately with normal speech HEENT: Normal cephalic atraumatic. Pupils are equal round and reactive to light. Extraocular movements are intact. Oropharynx is pink with moist mucous membranes. No swelling of the mouth lips or tongue. Neck: Supple with a midline trachea. No meningeal signs or stiffness, no JVD or bruits. No Stridor. Chest: Clear to auscultation bilaterally. No wheezes or rhonchi. No increased work of breathing. Heart: Regular rate and rhythm without murmurs or gallops. Abdomen: Soft nontender, nondistended without rebound guarding or rigidity. Extremities: No cyanosis clubbing or edema. No calf tenderness or assymetry Spine/Back. Non tender to palpation. No CVA tenderness Skin: Good turgor without rashes. Neurologic exam: Cranial nerves two through 12 are intact. Motor and sensation are intact and symmetrical throughout. Course Administered Medications Sodium Chloride (Nss 1000ml) 1,000 mls @ 80 mls/hr IV .[id number] CORI Stop: 07/26/22 23:03 Last Admin: 07/25/22 22:54 Dose: 80 mls/hr Documented By: KIKE Discontinued Medications Apixaban (Apixaban 2.5 Mg Tab) 2.5 mg PO NOW STA Stop: 07/25/22 21:16 Last Admin: 07/25/22 22:51 Dose: 2.5 mg Documented By: KIKE Carbidopa/Levodopa (Carbidopa/Levodopa 25/100mg Tab) 1 tab PO NOW STA Stop: 07/25/22 21:16 Last Admin: 07/25/22 22:51 Dose: 1 tab Documented By: KIKE Sodium Chloride (Nss 1000ml) 500 mls @ 999 mls/hr IV .Q31M ONE Stop: 07/25/22 19:16 Last Infusion: 07/25/22 22:05 Dose: 0 mls/hr Documented By: Admin: 07/25/22 20:00 Dose: 999 mls/hr Documented By: ALISHA Ceftriaxone Sodium (Rocephin) 2,000 mg in 70 mls @ 140 mls/hr IV NOW STA Stop: 07/25/22 19:18 Last Infusion: 07/25/22 22:05 Dose: 0 mls/hr Documented By: Admin: 07/25/22 20:24 Dose: 140 mls/hr Documented By: ALISHA Tamsulosin HCl (Tamsulosin Hcl 0.4 Mg Cap) 0.4 mg PO NOW ONE Stop: 07/25/22 21:16 Last Admin: 07/25/22 22:51 Dose: 0.4 mg Documented By: KIKE Medical Decision Making Differential Diagnosis UTI, sepsis, dehydration, electrolyte or metabolic abnormality, COVID, cardiac disease, pulmonary disease, neurologic disease Medical Records Attestation: I reviewed the patient's medical records. Home Medications Current Medication List: was personally reviewed by me Laboratory Data Attestation: I reviewed the patient's lab results. 07/25/22 17:54 07/25/22 17:54 Lab Results 07/25/22 07/25/22 07/25/22 Range/Units 17:54 17:54 17:54 WBC 15.22 H (4.8-10.8) K/ul RBC 4.45 L (4.70-6.10) M/uL Hgb 13.9 L (14.0-18.0) g/dl Hct 40.9 L (42.0-52.0) % MCV 91.9 (80.0-100.0) fL MCH 31.2 (25.0-34.0) pg MCHC 34.0 (32.0-36.0) g/dL RDW Std Deviation 46.6 H (36.4-46.3) fL RDW Coeff of Ramy 13.7 (11.5-14.5) % Plt Count 228 (130-400) K/uL MPV 10.7 (9.4-12.4) fL Immature Gran % (Auto) 0.9 % Neut % (Auto) 83.9 % Lymph % (Auto) 6.0 % Leake % (Auto) 8.5 % Eos % (Auto) 0.5 % Baso % (Auto) 0.2 % Neut # (Auto) 12.77 H (1.40-6.50) K/uL Lymph # (Auto) 0.92 L (1.2-3.4) K/uL Leake # (Auto) 1.29 H (0.11-0.59) K/uL Eos # (Auto) 0.07 (0-0.50) K/uL Baso # (Auto) 0.03 (0-0.2) K/uL Immature Gran # (Auto) 0.14 (0.01-0.20) K/uL PT 11.1 (9.0-12.0) Seconds INR 1.0 (0.9-1.1) Sodium 137 (136-145) mmol/L Potassium 4.4 (3.5-5.1) mmol/L Chloride 105 (98-107) mmol/L Carbon Dioxide 25 (21-32) mmol/L Anion Gap 7 (3-11) BUN 31 H (6-23) mg/dl Creatinine 1.42 H (0.6-1.4) mg/dl Est Cr Clr Drug Dosing Not Reportable Est GFR ( Amer) 51.5 ml/min Est GFR (Non-Af Amer) 44.4 ml/min BUN/Creatinine Ratio 21.8 H (10-20) Glucose 103 H (70-99(Fasting)) mg/dl Lactate (0.4-2.0) mmol/L Calcium 9.5 (8.6-10.3) mg/dl Magnesium 1.8 (1.7-2.4) mg/dl Total Bilirubin 1.1 H (0.2-1.0) mg/dl AST 18 (13-39) U/L ALT 14 (7-52) U/L Alkaline Phosphatase 90 (34-104) U/L Troponin I High Sens 6.8 (0-20) pg/ml Total Protein 7.0 (6.0-8.3) gm/dl Albumin 4.4 (3.4-5.0) gm/dl Globulin 2.6 (2.5-4.0) gm/dl Albumin/Globulin Ratio 1.7 (0.9-2) TSH (0.300-4.500) uIu/ml Urine Color Urine Appearance (Clear) Urine pH (4.5-7.5) Ur Specific [place] (1.000-1.030) Urine Protein (Negative) Urine Glucose (UA) (Negative) Urine Ketones (Negative) Urine Blood (Negative) Urine Nitrite (Negative) Urine Bilirubin (Negative) Urine Urobilinogen (Negative) Ur Leukocyte Esterase (Negative) Urine WBC (Auto) (0-5) /hpf Urine RBC (Auto) (0-4) /hpf U Hyaline Cast (Auto) (0-5) /lpf U Epithel Cells (Auto) (0-5) /lpf Urine Bacteria (Auto) (Negative) Urine Yeast SARS-CoV-2 (PCR) (Negative) Influenza Type A (PCR) (Neg) Influenza Type B (PCR) (Neg) RSV (RT-PCR) (Neg) 07/25/22 07/25/22 07/25/22 Range/Units 17:54 19:50 20:04 WBC (4.8-10.8) K/ul RBC (4.70-6.10) M/uL Hgb (14.0-18.0) g/dl Hct (42.0-52.0) % MCV (80.0-100.0) fL MCH (25.0-34.0) pg MCHC (32.0-36.0) g/dL RDW Std Deviation (36.4-46.3) fL RDW Coeff of Ramy (11.5-14.5) % Plt Count (130-400) K/uL MPV (9.4-12.4) fL Immature Gran % (Auto) % Neut % (Auto) % Lymph % (Auto) % Leake % (Auto) % Eos % (Auto) % Baso % (Auto) % Neut # (Auto) (1.40-6.50) K/uL Lymph # (Auto) (1.2-3.4) K/uL Leake # (Auto) (0.11-0.59) K/uL Eos # (Auto) (0-0.50) K/uL Baso # (Auto) (0-0.2) K/uL Immature Gran # (Auto) (0.01-0.20) K/uL PT (9.0-12.0) Seconds INR (0.9-1.1) Sodium (136-145) mmol/L Potassium (3.5-5.1) mmol/L Chloride (98-107) mmol/L Carbon Dioxide (21-32) mmol/L Anion Gap (3-11) BUN (6-23) mg/dl Creatinine (0.6-1.4) mg/dl Est Cr Clr Drug Dosing Est GFR ( Amer) ml/min Est GFR (Non-Af Amer) ml/min BUN/Creatinine Ratio (10-20) Glucose (70-99(Fasting)) mg/dl Lactate (0.4-2.0) mmol/L Calcium (8.6-10.3) mg/dl Magnesium (1.7-2.4) mg/dl Total Bilirubin (0.2-1.0) mg/dl AST (13-39) U/L ALT (7-52) U/L Alkaline Phosphatase (34-104) U/L Troponin I High Sens (0-20) pg/ml Total Protein (6.0-8.3) gm/dl Albumin (3.4-5.0) gm/dl Globulin (2.5-4.0) gm/dl Albumin/Globulin Ratio (0.9-2) TSH 4.024 (0.300-4.500) uIu/ml Urine Color Yellow Urine Appearance Turbid A (Clear) Urine pH 6.0 (4.5-7.5) Ur Specific [place] 1.017 (1.000-1.030) Urine Protein 2+ H (Negative) Urine Glucose (UA) Negative (Negative) Urine Ketones Trace H (Negative) Urine Blood 3+ H (Negative) Urine Nitrite Positive A (Negative) Urine Bilirubin Negative (Negative) Urine Urobilinogen Negative (Negative) Ur Leukocyte Esterase 3+ H (Negative) Urine WBC (Auto) >30 H (0-5) /hpf Urine RBC (Auto) 10-30 H (0-4) /hpf U Hyaline Cast (Auto) 1-5 (0-5) /lpf U Epithel Cells (Auto) 5-10 H (0-5) /lpf Urine Bacteria (Auto) 1+ H (Negative) Urine Yeast Not Reportable SARS-CoV-2 (PCR) NEGATIVE (Negative) Influenza Type A (PCR) Negative (Neg) Influenza Type B (PCR) Negative (Neg) RSV (RT-PCR) Negative (Neg) 07/25/22 Range/Units 20:05 WBC (4.8-10.8) K/ul RBC (4.70-6.10) M/uL Hgb (14.0-18.0) g/dl Hct (42.0-52.0) % MCV (80.0-100.0) fL MCH (25.0-34.0) pg MCHC (32.0-36.0) g/dL RDW Std Deviation (36.4-46.3) fL RDW Coeff of Ramy (11.5-14.5) % Plt Count (130-400) K/uL MPV (9.4-12.4) fL Immature Gran % (Auto) % Neut % (Auto) % Lymph % (Auto) % Leake % (Auto) % Eos % (Auto) % Baso % (Auto) % Neut # (Auto) (1.40-6.50) K/uL Lymph # (Auto) (1.2-3.4) K/uL Leake # (Auto) (0.11-0.59) K/uL Eos # (Auto) (0-0.50) K/uL Baso # (Auto) (0-0.2) K/uL Immature Gran # (Auto) (0.01-0.20) K/uL PT (9.0-12.0) Seconds INR (0.9-1.1) Sodium (136-145) mmol/L Potassium (3.5-5.1) mmol/L Chloride (98-107) mmol/L Carbon Dioxide (21-32) mmol/L Anion Gap (3-11) BUN (6-23) mg/dl Creatinine (0.6-1.4) mg/dl Est Cr Clr Drug Dosing Est GFR ( Amer) ml/min Est GFR (Non-Af Amer) ml/min BUN/Creatinine Ratio (10-20) Glucose (70-99(Fasting)) mg/dl Lactate 1.0 (0.4-2.0) mmol/L Calcium (8.6-10.3) mg/dl Magnesium (1.7-2.4) mg/dl Total Bilirubin (0.2-1.0) mg/dl AST (13-39) U/L ALT (7-52) U/L Alkaline Phosphatase (34-104) U/L Troponin I High Sens (0-20) pg/ml Total Protein (6.0-8.3) gm/dl Albumin (3.4-5.0) gm/dl Globulin (2.5-4.0) gm/dl Albumin/Globulin Ratio (0.9-2) TSH (0.300-4.500) uIu/ml Urine Color Urine Appearance (Clear) Urine pH (4.5-7.5) Ur Specific [place] (1.000-1.030) Urine Protein (Negative) Urine Glucose (UA) (Negative) Urine Ketones (Negative) Urine Blood (Negative) Urine Nitrite (Negative) Urine Bilirubin (Negative) Urine Urobilinogen (Negative) Ur Leukocyte Esterase (Negative) Urine WBC (Auto) (0-5) /hpf Urine RBC (Auto) (0-4) /hpf U Hyaline Cast (Auto) (0-5) /lpf U Epithel Cells (Auto) (0-5) /lpf Urine Bacteria (Auto) (Negative) Urine Yeast SARS-CoV-2 (PCR) (Negative) Influenza Type A (PCR) (Neg) Influenza Type B (PCR) (Neg) RSV (RT-PCR) (Neg) Imaging Data Attestation: I personally reviewed and interpreted this imaging study as follows: My Impression: Chest x-rayno acute infiltrate, failure, pneumothorax seen Radiologist's Impression: Chest X-Ray 07/25/22 17:38 XR chest 1V portable HISTORY: 86 years-old Male weakness acute weakness COMPARISON: June 06, 2022 TECHNIQUE: AP view of the chest FINDINGS: Cardiomediastinal and hilar silhouettes are within normal limits. There is no pneumothorax, large pleural effusion or overt pulmonary edema. Blunting of the costophrenic angles, left greater than right. Degenerative changes of the shoulders and spine. Chronic bilateral rib fractures. IMPRESSION: No acute process. ACT 112: Negative or not required by law. The above report was generated using voice recognition software. It may contain grammatical, syntax or spelling errors. Electronically signed by: Satinder Hernandez M.D. 07/25/2022 7:01 PM ECG Data Attestation: I personally reviewed and interpreted this ECG as follows: Indication: + weakness Rate (beats per minute): 77 Rhythm: + normal sinus ECG Intervals/blocks: + Normal QRS, + Short LA and + Normal QT ECG Isabella: + Normal ECG ST segments: + Normal ST segments ECG Findings: no PACs or no PVCs Comparison ECG Date: from (06/03/22) Change: the following changes noted (PACs are now absent. LA interval is shorter) MDM Narrative This patient comes in as described above. He was placed on a alarm security or surveillance monitor room B7. He is here for evaluation of fever weakness and urinary type symptoms. he has stable vital signs. IV access was established a full sepsis type work-up was done. he had elevated white count of 15. he had orders done in triage by her DOROTHY. I did add blood cultures and lactic acid as well as COVID testing. I did treat him with Rocephin 2 g IV after reviewing his urine culture from the last time that was sensitive to cephalosporins. The patient has remained normotensive, his lactic acid is not elevated therefore he is not in severe sepsis at this point. His BUN and creatinine are elevated as well. He is dehydrated. I do think he needs to be admitted for further inpatient treatment evaluation of antibiotics. Have consulted and discussed the case with Dr. Coby Morales, who is the [facility] hospitalist, she saw the patient in ER for these measures. Continuous cardiac monitoring: An order was placed in the EMR for continuous car diac monitoring. Upon my evaluation the patient was noted to be in normal sinus rhythm rate of 75 Impression & Plan Sepsis, Weakness, Acute UTI (urinary tract infection), Acute dehydration, Lab test negative for COVID-19 virus Discharge Plan Visit Data Chief Complaint: Urinary Symptoms Stated Complaint: UTI,FEVER ED Provider: Krishan Marin Discharge Problem: Sepsis, Weakness, Acute UTI (urinary tract infection), Acute dehydration, Lab test negative for COVID-19 virus Patient Disposition: Admitted As Inpatient Discharge Instructions Interventions: ED Discharge Assessment Last Done: 07/25/22 21:42
[2022-07-25 19:02] LABS: Prothrombin Time 11.1 Seconds (9.0-12.0)
--- NOTE | 2022-07-25 19:02 | XRay Report ---
XR chest 1V portable HISTORY: 86 years-old Male weakness acute weakness COMPARISON: June 06, 2022 TECHNIQUE: AP view of the chest FINDINGS: Cardiomediastinal and hilar silhouettes are within normal limits. There is no pneumothorax, large ple ural effusion or overt pulmonary edema. Blunting of the costophrenic angles, left greater than right. Degenerative changes of the shoulders and spine. Chronic bilateral rib fractures. IMPRESSION: No acute process. ACT 112: Negative or not required by law. The above report was generated using voice recognition software. It may contain grammatical, syntax o r spelling errors. Electronically signed by: Satinder Hernandez M.D. 07/25/2022 7:01 PM
[2022-07-25 20:29] LABS: Appearance Urine Turbid (Clear); Bacteria Urine Automated 1+ (Negative); Bilirubin Urine Negative (Negative); Blood Urine 3+ (Negative); Color Urine Yellow; Glucose Urine UA Negative (Negative); Ketones Urine Trace (Negative); Leukocyte Esterase Urine 3+ (Negative); Nitrite Urine Positive (Negative); Protein Urine 2+ (Negative); Specific Gravity Urine 1.017 (1.000-1.030); Urobilinogen Urine Negative (Negative); WBC Urine Automated >30 /hpf (0-5)
[2022-07-25 20:53] LABS: Influenza A virus by PCR Negative (Neg); Influenza B virus by PCR Negative (Neg); RSV by PCR Negative (Neg); SARS CoV2 RNA(COVID-19) Ceph NEGATIVE (Negative)
[2022-07-25] MEDS ORDERED: CARBIDOPA/LEVODOPA 25/100MG TAB PO STA (21:15)
[2022-07-25] MEDS ORDERED: TAMSULOSIN HCL 0.4 MG CAP PO ONE (21:15)
[2022-07-25] MEDS ORDERED: APIXABAN 2.5 MG TAB PO STA (21:15)
--- NOTE | 2022-07-25 21:16 | History & Physical Report ---
Date of Service July 25, 2022 Assessment & Plan (1) Acute UTI (urinary tract infection): Plan: 86yo male with history of BPH with LUTS, frequent UTIs and PD presenting with one day of fever, fatigue, dysuria and generalized weakness. Workup with marked leukocytosis - WBC=15.2, elevation of BUN and Cr from baseline BUN=31, Cr=1.42 (most recently 21 and 1.09, respectively on 06/21/22). Mild CVA tenderness. UA suggestive of infection -Admit to medical -Follow cultures - blood and urine sent by ER -Check renal US to assess for possible pyelonephritis -NSS at 80mL/hr x 2 liters -Ceftriaxone 1gm IV daily (2) Parkinson disease: Plan: Chronic. Well controlled. Patient follows with Neurology -Continue Carbidopa/Levodopa at home dose (3) Hypertension: Plan: Blood pressure mildly elevated -Continue Amlodipine Monitor (4) BPH w urinary obs/LUTS: Plan: Chronic -Bladder scan as needed -Continue Finasteride and Flomax F/E/N - NSS at 80mL/hr x 2L, electrolytes WNL, Heart healthy diet as tolerated Ppx - Patient on Eliquis for history of VTE Code - Full per discussion with patient Dispo - Admit to medical History of Present Illness Chief Complaint: fever, fatigue, generalized weakness Primary Care Provider: [facility] Onel Davenport is an 86yo male with history of BPH with LUTS, HTN, HLP, CKD, PD and frequent UTIs presenting with one day of fever (Yo=325.8), fatigue and generalized weakness and mild dysuria. Symptoms began today. Patient was seen at the [facility] and a UA was collected. He was not started on any antibiotics. Patient denies abdominal pain, nausea, vomiting, diarrhea or constipation. Denies chest pain, SOB or cough. No rashes. In the ER patient is afebrile, HD stable and non-toxic in appearance. Family is at bedside and assists with history. Patient is awake and alert and answering questions appropriately. ER Course: Ceftriaxone NSS Allergies Allergy/AdvReac Type Severity Reaction Status Date / Time No Known Allergies Allergy Verified 06/20/22 09:01 Home Medications Medication Instructions Recorded Confirmed Type amlodipine 2.5 mg tablet 2.5 mg PO QAM 12/04/21 07/25/22 History apixaban 2.5 mg tablet (Eliquis) 2.5 mg PO BID 12/04/21 07/25/22 History aspirin 81 mg capsule 81 mg PO QAM 12/04/21 07/25/22 History carbidopa 25 mg-levodopa 100 mg 1 tab PO TID 12/04/21 07/25/22 History tablet (Sinemet) cholecalciferol (vitamin D3) 50 50 mcg PO DAILY 12/04/21 07/25/22 History mcg (2,000 unit) capsule finasteride 5 mg tablet (Proscar) 5 mg PO QAM 12/04/21 07/25/22 History pantoprazole 40 mg tablet,delayed 40 mg PO 3XWK 12/04/21 07/25/22 History release tamsulosin 0.4 mg capsule (Flomax) 0.4 mg PO QPM 12/04/21 07/25/22 History cyanocobalamin (vitamin B-12) 1,000 mcg PO DAILY 01/21/22 07/25/22 History 1,000 mcg tablet (Vitamin B-12) lisinopril 2.5 mg tablet 2.5 mg PO DAILY 07/25/22 07/25/22 History psyllium husk 3.4 gram/5.4 gram 1 tbsp PO DAILY 07/25/22 07/25/22 History oral powder (Metamucil) Past Med/Surg History Medical History BPH w urinary obs/LUTS Dementia Diverticulosis of large intestine without perforation or abscess without bleeding Dysarthria and anarthria Dysphagia Dysphonia Hearing deficit [place] left History of basal cell carcinoma History of blood clots superficial - LLE - 2 years ago, RLE - approx 1 year ago? History of SCC (squamous cell carcinoma) of skin Hyperlipidemia Hypertension 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 stage III Irregular heart rhythm follows w/ Dr. Gayle Muscle spasm of back Other abnormalities of gait and mobility Parkinson disease Poor historian Resides in halfway facility current resident of [facility] Surgical History History of colonoscopy History of eye surgery Rt eye History of knee surgery Rt Status post Mohs surgery Family History Other Adopted Social History Smoking Status: Former smoker Second Hand Exposure: No; Do You Dip or Chew Tobacco: No; Hx Alcohol Use: Yes Alcohol type: beer, wine and hard liquor Alcohol Intake Frequency: Monthly or Less Hx Substance Use: No Preferred Language: Moroccan Communication Ability: Effective Chair Frame Builder Required: No Beliefs That Will Affect Care: None marital status: Current Living Situation: Spouse and Personal Care Facility Current Living Situation Comment: [facility]. current occupational status: retired Other Information That Helps Us Care for You: No Feels Safe at Home: Yes Safety Concerns: Feels Safe At This Time Assistive Devices: Walker Review of Systems Review of Systems: All systems reviewed & are unremarkable except as noted in HPI & below Physical Exam Physical Exam: General: patient resting comfortably, NAD, non-toxic in appearance, AA&O x 4 Skin: warm, dry, intact, no rashes or lesions HEENT: NC/AT, PERRL, EOMI, anicteric sclera, conjunctiva without injection, external ear normal to inspection and nontender, nares patent, moist mucus membranes, dentition intact, no oropharyngeal lesions, neck supple, trachea midline, no LAD, no thyromegaly, no JVD Heart: +S1/S2, regular, no m/r/g Lungs: equal air entry bilaterally, no rales/rhonchi/wheezes Abd: +BS, soft, NT/ND, no masses/organomegaly/ascites, mild left CVA tenderness Ext: warm, 2+ pulses in UE/LE bilaterally, no clubbing/cyanosis or edema Neuro: nonfocal, patient AA&O x 4, speech intact, no facial droop, moving all extremities on command with equal strength 5/5 Results & Data Results & Data Vital Signs (Past 12 Hours) Vital Signs Temp Pulse Resp BP Pulse Ox O2 Del Method 07/25/22 19:57 85 07/25/22 19:59 97 H 97 Room Air 07/25/22 17:36 37.5 C 77 20 131/72 98 Room Air Laboratory Results Laboratory Results WBC 15.22 K/ul (4.8-10.8) H 07/25/22 17:54 RBC 4.45 M/uL (4.70-6.10) L 07/25/22 17:54 Hgb 13.9 g/dl (14.0-18.0) L 07/25/22 17:54 Hct 40.9 % (42.0-52.0) L 07/25/22 17:54 MCV 91.9 fL (80.0-100.0) 07/25/22 17:54 MCH 31.2 pg (25.0-34.0) 07/25/22 17:54 MCHC 34.0 g/dL (32.0-36.0) 07/25/22 17:54 RDW Std Deviation 46.6 fL (36.4-46.3) H 07/25/22 17:54 RDW Coeff of Ramy 13.7 % (11.5-14.5) 07/25/22 17:54 Plt Count 228 K/uL (130-400) 07/25/22 17:54 MPV 10.7 fL (9.4-12.4) 07/25/22 17:54 Immature Gran % (Auto) 0.9 % 07/25/22 17:54 Neut % (Auto) 83.9 % 07/25/22 17:54 Lymph % (Auto) 6.0 % 07/25/22 17:54 [place] % (Auto) 8.5 % 07/25/22 17:54 Eos % (Auto) 0.5 % 07/25/22 17:54 Baso % (Auto) 0.2 % 07/25/22 17:54 Neut # (Auto) 12.77 K/uL (1.40-6.50) H 07/25/22 17:54 Lymph # (Auto) 0.92 K/uL (1.2-3.4) L 07/25/22 17:54 [place] # (Auto) 1.29 K/uL (0.11-0.59) H 07/25/22 17:54 Eos # (Auto) 0.07 K/uL (0-0.50) 07/25/22 17:54 Baso # (Auto) 0.03 K/uL (0-0.2) 07/25/22 17:54 Immature Gran # (Auto) 0.14 K/uL (0.01-0.20) 07/25/22 17:54 PT 11.1 Seconds (9.0-12.0) 07/25/22 17:54 INR 1.0 (0.9-1.1) 07/25/22 17:54 Sodium 137 mmol/L (136-145) 07/25/22 17:54 Potassium 4.4 mmol/L (3.5-5.1) 07/25/22 17:54 Chloride 105 mmol/L (98-107) 07/25/22 17:54 Carbon Dioxide 25 mmol/L (21-32) 07/25/22 17:54 Anion Gap 7 (3-11) 07/25/22 17:54 BUN 31 mg/dl (6-23) H 07/25/22 17:54 Creatinine 1.42 mg/dl (0.6-1.4) H 07/25/22 17:54 Est Cr Clr Drug Dosing Not Reportable 07/25/22 17:54 Est GFR ( Amer) 51.5 ml/min 07/25/22 17:54 Est GFR (Non-Af Amer) 44.4 ml/min 07/25/22 17:54 BUN/Creatinine Ratio 21.8 (10-20) H 07/25/22 17:54 Glucose 103 mg/dl (70-99(Fasting)) H 07/25/22 17:54 Lactate 1.0 mmol/L (0.4-2.0) 07/25/22 20:05 Calcium 9.5 mg/dl (8.6-10.3) 07/25/22 17:54 Magnesium 1.8 mg/dl (1.7-2.4) 07/25/22 17:54 Total Bilirubin 1.1 mg/dl (0.2-1.0) H 07/25/22 17:54 AST 18 U/L (13-39) 07/25/22 17:54 ALT 14 U/L (7-52) 07/25/22 17:54 Alkaline Phosphatase 90 U/L (34-104) 07/25/22 17:54 Troponin I High Sens 6.8 pg/ml (0-20) 07/25/22 17:54 Total Protein 7.0 gm/dl (6.0-8.3) 07/25/22 17:54 Albumin 4.4 gm/dl (3.4-5.0) 07/25/22 17:54 Globulin 2.6 gm/dl (2.5-4.0) 07/25/22 17:54 Albumin/Globulin Ratio 1.7 (0.9-2) 07/25/22 17:54 TSH 4.024 uIu/ml (0.300-4.500) 07/25/22 17:54 Urine Color Yellow 07/25/22 19:50 Urine Appearance Turbid (Clear) A 07/25/22 19:50 Urine pH 6.0 (4.5-7.5) 07/25/22 19:50 Ur Specific [place] 1.017 (1.000-1.030) 07/25/22 19:50 Urine Protein 2+ (Negative) H 07/25/22 19:50 Urine Glucose (UA) Negative (Negative) 07/25/22 19:50 Urine Ketones Trace (Negative) H 07/25/22 19:50 Urine Blood 3+ (Negative) H 07/25/22 19:50 Urine Nitrite Positive (Negative) A 07/25/22 19:50 Urine Bilirubin Negative (Negative) 07/25/22 19:50 Urine Urobilinogen Negative (Negative) 07/25/22 19:50 Ur Leukocyte Esterase 3+ (Negative) H 07/25/22 19:50 Urine WBC (Auto) >30 /hpf (0-5) H 07/25/22 19:50 Urine RBC (Auto) 10-30 /hpf (0-4) H 07/25/22 19:50 U Hyaline Cast (Auto) 1-5 /lpf (0-5) 07/25/22 19:50 U Epithel Cells (Auto) 5-10 /lpf (0-5) H 07/25/22 19:50 Urine Bacteria (Auto) 1+ (Negative) H 07/25/22 19:50 Urine Yeast Not Reportable 07/25/22 19:50 SARS-CoV-2 (PCR) NEGATIVE (Negative) 07/25/22 20:04 Influenza Type A (PCR) Negative (Neg) 07/25/22 20:04 Influenza Type B (PCR) Negative (Neg) 07/25/22 20:04 RSV (RT-PCR) Negative (Neg) 07/25/22 20:04 Impressions Chest X-Ray 07/25/22 17:38 XR chest 1V portable HISTORY: 86 years-old Male weakness acute weakness COMPARISON: June 06, 2022 TECHNIQUE: AP view of the chest FINDINGS: Cardiomediastinal and hilar silhouettes are within normal limits. There is no pneumothorax, large pleural effusion or overt pulmonary edema. Blunting of the costophrenic angles, left greater than right. Degenerative changes of the sh oulders and spine. Chronic bilateral rib fractures. IMPRESSION: No acute process. ACT 112: Negative or not required by law. The above report was generated using voice recognition software. It may contain grammatical, syntax or spelling errors. Electronically signed by: Satinder Hernandez M.D. 07/25/2022 7:01 PM Code Status & VTE Plan VTE Prophylaxis Plan VTE Prophylaxis will be ordered: Yes PG Care Time/CCT Total # of Minutes Spent Total Time Spent with Patient: Total time spent is greater than 50% in coordination of care (as documented) at patient's floor/unit and/or counseling patient: Coding Level of Care Code 55141 INT INP/OBS CARE 2/55MIN Diagnoses Acute UTI (urinary tract infection) N39.0 Parkinson disease G20 Hypertension I10 BPH w urinary obs/LUTS N40.1; N13.8
[2022-07-25] MEDS ORDERED: ACETAMINOPHEN 325 MG TAB PO PRN (22:04)
[2022-07-25] MEDS: SODIUM CHLORIDE 0.9% 1000ML 1,000 ML IV SCH (22:54)
[2022-07-26 07:37] LABS: Hemoglobin 12.7 g/dl (14.0-18.0); Mean Corpuscular Hemoglobin 31.1 pg (25.0-34.0); Mean Corpuscular Hgb Conc 33.4 g/dL (32.0-36.0); Mean Corpuscular Volume 93.1 fL (80.0-100.0); Mean Platelet Volume 10.7 fL (9.4-12.4); Platelet Count 199 K/uL (130-400); RDW Coefficient of Variation 13.8 % (11.5-14.5); RDW Standard Deviation 46.6 fL (36.4-46.3); Red Blood Count 4.08 M/uL (4.70-6.10); White Blood Count 11.46 K/ul (4.8-10.8)
[2022-07-26 07:54] LABS: Albumin Level 3.8 gm/dl (3.4-5.0); BUN Creatinine Ratio 19.8 (10-20); Bilirubin Direct 0.2 mg/dl (0-0.2); Bilirubin,Total 1.4 mg/dl (0.2-1.0); Creatinine Clr Calc Pharmacy 44.7 ml/min; Est GFR (African American) 69.3 ml/min; Est GFR (Non-African American) 59.8 ml/min; Potassium 4.1 mmol/L (3.5-5.1); Total Protein 6.1 gm/dl (6.0-8.3)
[2022-07-26] MEDS: amLODIPine BESYLATE 5 MG TAB PO SCH (09:47)
[2022-07-26] MEDS: FINASTERIDE 5 MG TAB PO SCH (09:48)
[2022-07-26] MEDS: ASPIRIN 81 MG ECTAB PO SCH (09:48)
[2022-07-26] MEDS: PANTOprazole 40 MG TAB PO SCH (09:48)
[2022-07-26] MEDS: CARBIDOPA/LEVODOPA 25/100MG TAB PO SCH ×3 (09:48→20:37)
[2022-07-26] MEDS: APIXABAN 2.5 MG TAB PO SCH ×2 (09:48→20:36)
--- NOTE | 2022-07-26 10:42 | Ultrasound Report ---
RENAL ULTRASOUND HISTORY: Acute left flank pain Left CVA tenderness, ?Pyelonephritis COMPARISON: Renal ultrasound 11/20/2021 FINDINGS: Right kidney: 11.0 cm. Numerous cysts of the right kidney are again noted measuring up to 8.1 x 6.5 x 6.8 cm within the superior pole, similar to prior. Additionally, there is a round 2.2 x 2.4 x 2.1 cm structure adjacent to this cyst demonstrating central color-flow it appears similar to the adjacent parenchyma and not definitively seen on the prior study. No hydronephrosis. Normal corticomedullary d ifferentiation and cortical thickness. Left kidney: 11.3 cm. Numerous cysts of the left kidney are again noted measuring up to 1.6 cm. No hy dronephrosis. Normal corticomedullary differentiation and cortical thickness. Bladder: Intraluminal debris within the urinary bladder. Urinary bladder wall thickening and trabecul ation. The left ureteral jet is noted. IMPRESSION: 1. No renal calculi or hydronephrosis. 2. Exophytic parenchyma versus mass of the superior pole right kidney measuring 2.4 cm adjacent to th e large benign-appearing cyst. Correlation with a CT or MRI renal mass protocol study recommended in order to exclude renal cell carcinoma. 3. Intraluminal debris within the urinary bladder is noted in conjunction with bladder wall thickenin g and trabeculation. Correlate with urinalysis. ACT 112: Negative or not required by law. Electronically signed by: Satinder Hernandez M.D. 07/26/2022 10:40 AM
--- NOTE | 2022-07-26 14:13 | Hospitalist Progress Note ---
Date of Service July 26, 2022 Assessment & Plan (1) Acute UTI (urinary tract infection): Plan: Urine and blood cultures remain pending. He continues with intravenous Rocephin, day 2. He has recurrent infections and probably should be on oral antibiotic suppressive therapy when discharged. We will await final urine culture results and tailor antibiotics accordingly. (2) Parkinson disease: Plan: Chronic. Weakness exacerbated by acute infection. Supportive care. Continue current medical management. (3) Hypertension: Plan: Stable. Continue current medical management (4) BPH w urinary obs/LUTS: Plan: Continue Finasteride and Flomax. (5) Renal mass: Plan: Multiple renal cysts seen on renal ultrasound with a possible right renal mass. CT scan ordered for further evaluation Plan Anticipate eventual return to [facility] although he may need a higher level of care for a little while Admission and Anticipated Discharge Date Admission Date: July 25, 2022 Subjective The patient appears to be very weak but is able to converse and is oriented. is at the bedside. She states that he has already improved. Apparently he has recurrent urinary tract infections and probably should be on chronic suppre ssive therapy at the time of discharge. Renal ultrasound reveals multiple cysts but there is an area on the right kidney that needs further evaluation. CT scan will be ordered. OT and PT assessments requested. Creatinine improved to 1.1. He remains on intravenous Rocephin. White blood cell count has trended downward. Review of Systems Review of Systems: Constitutional-no fever or chills ENT-no blurred vision, no double vision, no epistaxis, no sore throat Respiratory-no cough, no wheezing, no shortness of breath Cardiac-no palpitations, no chest pain, no syncope GI-no nausea, vomiting, diarrhea, melena, hematochezia -no urinary retention, no urinary incontinence, no dysuria, no hematuria Musculoskeletal-no joint pain, no muscle tenderness Skin-no bruising, no rashes, no pruritus Neuro-generalized weakness , no paresthesia Psych-no depression, no anxiety Physical Exam Physical Exam: General-alert and oriented x3, no fevers, no chills HEENT-head atraumatic and normocephalic, pupils equal and reactive to light, extraocular muscles intact Neck-no lymphadenopathy or thyromegaly, trachea midline Chest-clear to auscultation percussion. No rales wheezing or rhonchi Cardiac-regular rate and rhythm, normal S1 and S2 Abdomen-normal bowel sounds, nontender, no hepatosplenomegaly Extremities-no cyanosis, clubbing, or edema Neuro-cranial nerves II through XII intact, motor and sensory function within normal limits, strength symmetrical with generalized weakness , no focal deficits Psych-normal affect, normal mood Results & Data Results & Data Vital Signs (Past 12 Hours) Vital Signs Temp Pulse Resp BP Pulse Ox O2 Del Method 07/26/22 07:44 36.5 C 61 16 122/78 95 Room Air Laboratory Results 07/26/22 07:03 07/26/22 07:03 PG Care Time/CCT Total # of Minutes Spent Total Time Spent with Patient: Total time spent is greater than 50% in coordination of care (as documented) at patient's floor/unit and/or counseling patient: Coding Level of Care Code 53477 SUB INP/OBS CARE 3/50MIN Diagnoses Acute UTI (urinary tract infection) N39.0 Parkinson disease G20 Hypertension I10 BPH w urinary obs/LUTS N40.1; N13.8 Renal mass N28.89
[2022-07-26] MEDS: SODIUM CHLORIDE 0.9% 1000ML 1,000 ML IV SCH (14:35)
[2022-07-26] MEDS ORDERED: OPTIRAY 350 100ml IV ONE (15:08)
--- NOTE | 2022-07-26 16:28 | CT Scan Report ---
CT renal wo/w con HISTORY: 86 years-old Male right renal mass Follow-up study in a patient with possible 2.4 cm lesion of the superior pole of the right kidney. COMPARISON: Renal ultrasound of same day, and also 11/20/2021, CTA chest 06/02/2019. TECHNIQUE: Multiple axial CT images of the abdomen were obtained both with and without the use of Opt iray 350. A dose lowering technique was used consistent with the principals of JAEL. FINDINGS: Coronary artery calcifications. Cardiomegaly. Clear lung bases. No pneumatosis or pneumoperitoneum. T he spleen, pancreas and adrenal glands are within normal limits. Mild thickening of the left adrenal gland is suggestive of hyperplasia. Linear calcifications are noted within the asha hepatis which ar e likely vascular. Unremarkable gallbladder. The liver is within normal limits. Patent portal vein. Mild nonspecific bilateral perinephric stranding. No renal or ureteral calculi or hydronephrosis iden tified. Partially imaged distended urinary bladder with wall thickening. The delayed postcontrast maria isabel ges demonstrate symmetric pelvocaliectasis. No urothelial lesions identified. Numerous cysts of the k idneys measuring up to 1.6 cm on the left and 7.8 cm on the right. A cyst within the inferior pole of the right kidney demonstrates a few marginal calcifications measuring up to 7 mm. There is a lobular partially exophytic heterogeneously enhancing mass within the superior pole of the right kidney post eriorly adjacent to several cysts which measures 2.5 x 4.0 x 3.4 cm, best seen on the sagittal images . No additional or enhancing renal mass lesions are identified. Atherosclerosis of the aorta without aneurysm. Retroaortic left renal vein. The bilateral renal veins appear to be patent. No lymphadenopa thy is identified. Colonic diverticulosis. Moderate colonic fecal retention. No ascites or mesenteric inflammation. No C T evidence of acute appendicitis. Small fat-filled umbilical hernia. Degenerative changes of the spin e, pelvis and hips. IMPRESSION: 1. Enhancing mass of the superior pole right of the right kidney measuring up to 4 cm is suggestive o f renal cell carcinoma. 2. No lymphadenopathy or evidence of metastatic disease. 3. Urinary bladder distention with irregular wall thickening is suggestive of chronic bladder outlet obstruction, partially imaged. Correlation with urinalysis is recommended. 4. Colonic diverticulosis. 5. Additional findings as above. ACT 112: Negative or not required by law. The above report was generated using voice recognition software. It may contain grammatical, syntax o r spelling errors. Dictated: 07/26/2022 3:20 PM Transcribed: 07/26/2022 3:47 PM [email or web address] [id number] [email or web address] Electronically signed by: Satinder Hernandez M.D. 07/26/2022 4:26 PM
--- NOTE | 2022-07-26 18:00 | Electrocardiogram Report ---
Test Reason : Blood Pressure : / mmHG Vent. Rate : 077 BPM Atrial Rate : 077 BPM P-R Int : 108 ms QRS Dur : 088 ms QT Int : 378 ms P-R-T Axes : 014 015 039 degrees QTc Int : 427 ms Poor data quality, interpretation may be adversely affected Sinus rhythm Otherwise normal ECG When compared with ECG of 03-JUN-2022 19:27, Premature atrial complexes are no longer Present Confirmed by Lino Stahl ([id number]) on 07/26/2022 6:00:37 PM Referred By: REFERRED SELF Confirmed By:Martinez Stahl
[2022-07-26] MEDS: TAMSULOSIN HCL 0.4 MG CAP PO SCH (20:37)
[2022-07-26] MEDS ORDERED: cefTRIAXone SODIUM 1,000 MG in DEXTROSE 5% AD-VAN 50 ML IV SCH (21:00)
[2022-07-27 06:16] LABS: Basophils # (auto) 0.03 K/uL (0-0.2); Basophils % (auto) 0.2 %; Eosinophils # (auto) 0.13 K/uL (0-0.50); Hematocrit (blood only) 38.6 % (42.0-52.0); Hemoglobin 13.1 g/dl (14.0-18.0); Immature Granulocytes # (auto) 0.07 K/uL (0.01-0.20); Immature Granulocytes % (auto) 0.6 %; Lymphocytes # (auto) 0.98 K/uL (1.2-3.4); Lymphocytes % (auto) 7.9 %; Mean Corpuscular Hemoglobin 31.3 pg (25.0-34.0); Mean Corpuscular Hgb Conc 33.9 g/dL (32.0-36.0); Mean Corpuscular Volume 92.3 fL (80.0-100.0); Mean Platelet Volume 10.9 fL (9.4-12.4); Monocytes # (auto) 1.09 K/uL (0.11-0.59); Monocytes % (auto) 8.8 %; Neutrophils # (auto) 10.11 K/uL (1.40-6.50); Neutrophils % (auto) 81.5 %; Platelet Count 196 K/uL (130-400); RDW Standard Deviation 47.4 fL (36.4-46.3); Red Blood Count 4.18 M/uL (4.70-6.10); White Blood Count 12.41 K/ul (4.8-10.8)
[2022-07-27 06:27] LABS: BUN Creatinine Ratio 17.7 (10-20); Calcium 9.2 mg/dl (8.6-10.3); Creatinine Clr Calc Pharmacy 38.1 ml/min; Est GFR (African American) 57.3 ml/min; Est GFR (Non-African American) 49.4 ml/min; Potassium 4.3 mmol/L (3.5-5.1)
[2022-07-27] MEDS: amLODIPine BESYLATE 5 MG TAB PO SCH (08:22)
[2022-07-27] MEDS: FINASTERIDE 5 MG TAB PO SCH (08:23)
[2022-07-27] MEDS: ASPIRIN 81 MG ECTAB PO SCH (08:23)
[2022-07-27] MEDS: CARBIDOPA/LEVODOPA 25/100MG TAB PO SCH ×3 (08:23→20:58)
[2022-07-27] MEDS: APIXABAN 2.5 MG TAB PO SCH ×2 (08:23→20:58)
[2022-07-27] MEDS: CEFEPIME 1,000 MG in SYRINGE 0 ML IV SCH (12:18)
--- NOTE | 2022-07-27 14:47 | Hospitalist Progress Note ---
Date of Service July 27, 2022 Assessment & Plan (1) Acute UTI (urinary tract infection): Plan: Urine growing Pseudomonas. Blood culture negative. Antibiotic switched to cefepime, day 1. He has recurrent infections and probably should be on oral antibiotic suppressive therapy when discharged. (2) Parkinson disease: Plan: Chronic. Weakness exacerbated by acute infection. Supportive care. Continue current medical management. (3) Hypertension: Plan: Stable. Continue current medical management (4) BPH w urinary obs/LUTS: Plan: Continue Finasteride and Flomax. (5) Renal mass: Plan: Multiple renal cysts seen on renal ultrasound with a possible right renal mass. CT scan suggest the possibility of renal cell carcinoma on the right side. Urology consultation requested. This may need biopsied this admission. Plan Anticipate eventual return to [facility] although he may need a higher level of care for a little while Admission and Anticipated Discharge Date Admission Date: July 25, 2022 Subjective Continues to improve. He is sitting up in a chair eating. is at the bedside. Unfortunately, the renal CAT scan suggest the possibility of renal cell carcinoma of the right kidney. I discussed the findings with the and the patient. Urology consultation is requested and pending. We may need to biopsy the lesion while he is hospitalized. Pseudomonas growing in the urine. Antibiotics switched to cefepime. Blood cultures negative Review of Systems Review of Systems: Constitutional-no fever or chills ENT-no blurred vision, no double vision, no epistaxis, no sore throat Respiratory-no cough, no wheezing, no shortness of breath Cardiac-no palpitations, no chest pain, no syncope GI-no nausea, vomiting, diarrhea, melena, hematochezia -no urinary retention, no urinary incontinence, no dysuria, no hematuria Musculoskeletal-no joint pain, no muscle tenderness Skin-no bruising, no rashes, no pruritus Neuro-generalized weakness , no paresthesia Psych-no depression, no anxiety Physical Exam Physical Exam: General-alert and oriented x3, no fevers, no chills HEENT-head atraumatic and normocephalic, pupils equal and reactive to light, extraocular muscles intact Neck-no lymphadenopathy or thyromegaly, trachea midline Chest-clear to auscultation percussion. No rales wheezing or rhonchi Cardiac-regular rate and rhythm, normal S1 and S2 Abdomen-normal bowel sounds, nontender, no hepatosplenomegaly Extremities-no cyanosis, clubbing, or edema Neuro-cranial nerves II through XII intact, motor and sensory function within normal limits, strength symmetrical with generalized weakness , no focal deficits Psych-normal affect, normal mood Results & Data Results & Data Vital Signs (Past 12 Hours) Vital Signs Temp Pulse Resp BP 07/27/22 07:35 36.3 C L 85 16 125/78 Laboratory Results 07/27/22 05:49 07/27/22 05:49 PG Care Time/CCT Total # of Minutes Spent Total Time Spent with Patient: Total time spent is greater than 50% in coordination of care (as documented) at patient's floor/unit and/or counseling patient: Coding Level of Care Code 07210 SUB INP/OBS CARE 3/50MIN Diagnoses Acute UTI (urinary tract infection) N39.0 Parkinson disease G20 Hypertension I10 BPH w urinary obs/LUTS N40.1; N13.8 Renal mass N28.89
--- NOTE | 2022-07-27 20:10 | Urology Consultation ---
Date of Consultation July 27, 2022 Assessment & Plan (1) Renal mass: (2) Acute UTI (urinary tract infection): Plan 86-year-old male with a history of BPH status post rezum with recurrent UTIs. Currently admitted to the hospital for UTI and a renal ultrasound showed possible concern for right upper pole mass. A CT scan was performed which shows a 4 cm enhancing right upper pole renal mass concerning for malignancy. -Regarding his UTI, continue antibiotic treatment. Can switch to p.o. antibiotic once sensitivities are back. Recommend 10 to 14 days total of antibiotics Check PVRs to ensure adequate bladder emptying Regarding his right renal mass, I discussed the findings with the patient. I explained that this mass was concerning for cancer. His chest x-ray showed no concern for metastasis. That being said, the relative risk of metastasis with a 3 to 4 cm lesion is only roughly 1.8% and risk of metastasis of a lesion in between 4 to 5 cm is only 2.3%. Typically, we recommend observation with active surveillance in a patient of his age however I will ultimately let Dr. Phelps discuss and formulate a plan in outpatient follow-up for this mass. No acute urologic intervention necessary Urology to sign off. He has an appointment with Dr. Phelps on 08/21/2022 and we can keep this as hospital follow-up. History of Present Illness Reason for Consultation: Right renal mass Attending Physician: Odilon Walker MD History of Present Illness 86-year-old male with a history of BPH and incomplete bladder emptying and recurrent UTIs who is known to the urologic service. He is a patient of Dr. Phelps and previously underwent a rezum. He was last seen in our clinic several weeks ago. He was recently admitted to the hospital for a urinary tract infection and a renal ultrasound was ordered to rule out pyelonephritis. This did not show any hydronephrosis but did show a mass in the right upper pole of the kidney. CT scan of the abdomen with and without contrast was obtained which I independently reviewed. This shows an enhancing mass of the upper pole of the right kidney measuring up to 4 cm is concerning for renal cell carcinoma. There was no noted lymphadenopathy. He had a chest x-ray done which showed no concern for metastasis. Patient is currently afebrile with stable vitals. White blood cell count is 12.4, creatinine is 1.3, and urine culture is growing out suspected Pseudomonas. Patient denies any urinary symptoms at this time. He feels as if his urinary tract infection is improving. Allergies Allergy/AdvReac Type Severity Reaction Status Date / Time No Known Allergies Allergy Verified 06/20/22 09:01 Home Medications Medication Instructions Recorded Confirmed Type amlodipine 2.5 mg tablet 2.5 mg PO QAM 12/04/21 07/25/22 History apixaban 2.5 mg tablet (Eliquis) 2.5 mg PO BID 12/04/21 07/25/22 History aspirin 81 mg capsule 81 mg PO QAM 12/04/21 07/25/22 History carbidopa 25 mg-levodopa 100 mg 1 tab PO TID 12/04/21 07/25/22 History tablet (Sinemet) cholecalciferol (vitamin D3) 50 50 mcg PO DAILY 12/04/21 07/25/22 History mcg (2,000 unit) capsule finasteride 5 mg tablet (Proscar) 5 mg PO QAM 12/04/21 07/25/22 History pantoprazole 40 mg tablet,delayed 40 mg PO 3XWK 12/04/21 07/25/22 History release tamsulosin 0.4 mg capsule (Flomax) 0.4 mg PO QPM 12/04/21 07/25/22 History cyanocobalamin (vitamin B-12) 1,000 mcg PO DAILY 01/21/22 07/25/22 History 1,000 mcg tablet (Vitamin B-12) lisinopril 2.5 mg tablet 2.5 mg PO DAILY 07/25/22 07/25/22 History psyllium husk 3.4 gram/5.4 gram 1 tbsp PO DAILY 07/25/22 07/25/22 History oral powder (Metamucil) Patient History Medical History BPH w urinary obs/LUTS Dementia Diverticulosis of large intestine without perforation or abscess without bleeding Dysarthria and anarthria Dysphagia Dysphonia Hearing deficit [place] left History of basal cell carcinoma History of blood clots superficial - LLE - 2 years ago, RLE - approx 1 year ago? History of SCC (squamous cell carcinoma) of skin Hyperlipidemia Hypertension 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 stage III Irregular heart rhythm follows w/ Dr. Gayle Muscle spasm of back Other abnormalities of gait and mobility Parkinson disease Poor historian Resides in correction facility current resident of [facility] History of colonoscopy History of eye surgery Rt eye History of knee surgery Rt Status post Mohs surgery Family History Other Adopted Social History Smoking Status: Former smoker Second Hand Exposure: No; Do You Dip or Chew Tobacco: No; Hx Alcohol Use: Yes Alcohol type: beer, wine and hard liquor Alcohol Intake Frequency: Monthly or Less Hx Substance Use: No Preferred Language: Slovenian Communication Ability: Effective Engagement Mgr Required: No Beliefs That Will Affect Care: None marital status: Current Living Situation: Spouse and Personal Care Facility Current Living Situation Comment: [facility]. current occupational status: retired Other Information That Helps Us Care for You: No Feels Safe at Home: Yes Safety Concerns: Feels Safe At This Time Assistive Devices: Cane and Walker Review of Systems Review of Systems: 14 point review of systems negative outside of what is listed above in HPI Physical Exam Physical Exam: General: Alert and oriented, no acute distress HEENT: Normocephalic, mucous membranes moist Pulmonary: Nonlabored respirations Abdomen: Nondistended Extremities: Moves all 4 spontaneously Neuro: No gross deficits Skin: Warm, dry, no rashes noted Results & Data Vital Signs (Past 12 Hours) Vital Signs Temp Pulse Resp BP Pulse Ox O2 Del Method 07/27/22 15:40 36.7 C 77 18 133/78 95 Room Air PG Care Time/CCT Total # of Minutes Spent Total Time Spent with Patient: Total time spent is greater than 50% in coordination of care (as documented) at patient's floor/unit and/or counseling patient: Coding Level of Care Code 23227 INT INP/OBS CARE 2/55MIN Diagnoses Renal mass N28.89 Acute UTI (urinary tract infection) N39.0
[2022-07-27] MEDS: TAMSULOSIN HCL 0.4 MG CAP PO SCH (20:58)
[2022-07-28 06:21] LABS: Basophils # (auto) 0.04 K/uL (0-0.2); Basophils % (auto) 0.4 %; Eosinophils # (auto) 0.17 K/uL (0-0.50); Eosinophils % (auto) 1.9 %; Hematocrit (blood only) 39.2 % (42.0-52.0); Hemoglobin 13.1 g/dl (14.0-18.0); Immature Granulocytes # (auto) 0.07 K/uL (0.01-0.20); Immature Granulocytes % (auto) 0.8 %; Lymphocytes # (auto) 0.98 K/uL (1.2-3.4); Mean Corpuscular Hemoglobin 31.3 pg (25.0-34.0); Mean Corpuscular Hgb Conc 33.4 g/dL (32.0-36.0); Mean Corpuscular Volume 93.6 fL (80.0-100.0); Mean Platelet Volume 10.9 fL (9.4-12.4); Monocytes # (auto) 0.95 K/uL (0.11-0.59); Monocytes % (auto) 10.6 %; Neutrophils # (auto) 6.72 K/uL (1.40-6.50); Neutrophils % (auto) 75.3 %; Platelet Count 216 K/uL (130-400); RDW Coefficient of Variation 13.9 % (11.5-14.5); RDW Standard Deviation 47.8 fL (36.4-46.3); Red Blood Count 4.19 M/uL (4.70-6.10); White Blood Count 8.93 K/ul (4.8-10.8)
[2022-07-28 06:25] LABS: Calcium 9.5 mg/dl (8.6-10.3); Creatinine Clr Calc Pharmacy 41.3 ml/min; Est GFR (African American) 63.1 ml/min; Est GFR (Non-African American) 54.4 ml/min; Potassium 4.7 mmol/L (3.5-5.1)
[2022-07-28] MEDS: amLODIPine BESYLATE 5 MG TAB PO SCH (09:11)
[2022-07-28] MEDS: FINASTERIDE 5 MG TAB PO SCH (09:12)
[2022-07-28] MEDS: ASPIRIN 81 MG ECTAB PO SCH (09:12)
[2022-07-28] MEDS: CARBIDOPA/LEVODOPA 25/100MG TAB PO SCH ×3 (09:12→20:29)
[2022-07-28] MEDS: APIXABAN 2.5 MG TAB PO SCH ×2 (09:12→20:29)
[2022-07-28] MEDS: CEFEPIME 1,000 MG in SYRINGE 0 ML IV SCH (11:11)
--- NOTE | 2022-07-28 12:41 | Hospitalist Progress Note ---
Date of Service July 28, 2022 Assessment & Plan (1) Acute UTI (urinary tract infection): Plan: Urine growing Pseudomonas. Blood culture negative. Antibiotic has been switched to cefepime, day 2. He has recurrent infections and probably should be on oral antibiotic suppressive therapy when discharged. (2) Parkinson disease: Plan: Chronic. Weakness exacerbated by acute infection. Getting better however. Supportive care. Continue current medical management. (3) Hypertension: Plan: Stable. Continue current medical management (4) BPH w urinary obs/LUTS: Plan: Continue Finasteride and Flomax. (5) Renal mass: Plan: Multiple renal cysts seen on renal ultrasound with a possible right renal mass. CT scan suggest the possibility of renal cell carcinoma on the right side. Urol ogy consultation noted. No intervention at this time. This will be followed as an outpatient. Plan OT and PT services recommend short-term IPR placement at the time of discharge. Admission and Anticipated Discharge Date Admission Date: July 25, 2022 Subjective Alert and oriented. He continues to improve. He is now on cefepime for Pseudomonas isolated in the urine. Urology consultation appreciated. They will follow-up with what appears to be a right renal cell carcinoma as an outpatient. No intervention at this time. OT and PT recommend short-term rehab placement at the time of discharge. Review of Systems Review of Systems: Constitutional-no fever or chills ENT-no blurred vision, no double vision, no epistaxis, no sore throat Respiratory-no cough, no wheezing, no shortness of breath Cardiac-no palpitations, no chest pain, no syncope GI-no nausea, vomiting, diarrhea, melena, hematochezia -no urinary retention, no urinary incontinence, no dysuria, no hematuria Musculoskeletal-no joint pain, no muscle tenderness Skin-no bruising, no rashes, no pruritus Neuro-generalized weakness , no paresthesia Psych-no depression, no anxiety Physical Exam Physical Exam: General-alert and oriented x3, no fevers, no chills HEENT-head atraumatic and normocephalic, pupils equal and reactive to light, extraocular muscles intact Neck-no lymphadenopathy or thyromegaly, trachea midline Chest-clear to auscultation percussion. No rales wheezing or rhonchi Cardiac-regular rate and rhythm, normal S1 and S2 Abdomen-normal bowel sounds, nontender, no hepatosplenomegaly Extremities-no cyanosis, clubbing, or edema Neuro-cranial nerves II through XII intact, motor and sensory function within normal limits, strength symmetrical with generalized weakness , no focal deficits Psych-normal affect, normal mood Results & Data Results & Data Vital Signs (Past 12 Hours) Vital Signs Temp Pulse Resp BP Pulse Ox O2 Del Method 07/28/22 07:35 36.7 C 60 18 146/83 H 95 Room Air Laboratory Results 07/28/22 05:41 07/28/22 05:41 PG Care Time/CCT Total # of Minutes Spent Total Time Spent with Patient: Total time spent is greater than 50% in coordination of care (as documented) at patient's floor/unit and/or counseling patient: Coding Level of Care Code 94876 SUB INP/OBS CARE 2/35MIN Diagnoses Acute UTI (urinary tract infection) N39.0 Parkinson disease G20 Hypertension I10 BPH w urinary obs/LUTS N40.1; N13.8 Renal mass N28.89
[2022-07-28] MEDS: TAMSULOSIN HCL 0.4 MG CAP PO SCH (20:28)
[2022-07-29 07:51] LABS: Basophils # (auto) 0.04 K/uL (0-0.2); Basophils % (auto) 0.5 %; Eosinophils # (auto) 0.25 K/uL (0-0.50); Eosinophils % (auto) 3.4 %; Hematocrit (blood only) 37.3 % (42.0-52.0); Hemoglobin 12.6 g/dl (14.0-18.0); Immature Granulocytes # (auto) 0.09 K/uL (0.01-0.20); Immature Granulocytes % (auto) 1.2 %; Lymphocytes # (auto) 1.09 K/uL (1.2-3.4); Lymphocytes % (auto) 14.7 %; Mean Corpuscular Hemoglobin 31.3 pg (25.0-34.0); Mean Corpuscular Hgb Conc 33.8 g/dL (32.0-36.0); Mean Corpuscular Volume 92.6 fL (80.0-100.0); Mean Platelet Volume 10.7 fL (9.4-12.4); Monocytes # (auto) 0.78 K/uL (0.11-0.59); Monocytes % (auto) 10.5 %; Neutrophils # (auto) 5.19 K/uL (1.40-6.50); Neutrophils % (auto) 69.7 %; Platelet Count 208 K/uL (130-400); RDW Coefficient of Variation 13.8 % (11.5-14.5); Red Blood Count 4.03 M/uL (4.70-6.10); White Blood Count 7.44 K/ul (4.8-10.8)
[2022-07-29 08:06] LABS: BUN Creatinine Ratio 27.6 (10-20); Calcium 9.2 mg/dl (8.6-10.3); Creatinine Clr Calc Pharmacy 40.3 ml/min; Est GFR (African American) 61.2 ml/min; Est GFR (Non-African American) 52.8 ml/min; Potassium 4.6 mmol/L (3.5-5.1)
[2022-07-29] MEDS: ASPIRIN 81 MG ECTAB PO SCH (08:39)
[2022-07-29] MEDS: CARBIDOPA/LEVODOPA 25/100MG TAB PO SCH ×3 (08:39→20:12)
[2022-07-29] MEDS: APIXABAN 2.5 MG TAB PO SCH ×2 (08:39→20:12)
[2022-07-29] MEDS: PANTOprazole 40 MG TAB PO SCH (08:40)
[2022-07-29] MEDS: FINASTERIDE 5 MG TAB PO SCH (08:40)
[2022-07-29] MEDS: amLODIPine BESYLATE 5 MG TAB PO SCH (08:40)
[2022-07-29] MEDS: CEFEPIME 1,000 MG in SYRINGE 0 ML IV SCH ×2 (10:16→21:25)
--- NOTE | 2022-07-29 16:56 | Hospitalist Progress Note ---
Date of Service July 29, 2022 Assessment & Plan (1) Acute UTI (urinary tract infection): Plan: Acute Urine Culture growing Pseudomonas. Blood culture negative. Antibiotic has been switched to cefepime, on day 3. Per urology will need 10-14 days treatment of Cefepime Will need Picc line placed to receive remaining antibiotic course - Consent discussed and obtained with patient at discretion of my supervising physician Dr Stubbs He has recurrent infections and probably should be on oral antibiotic suppressive therapy when discharged. (2) Parkinson disease: Plan: Chronic and stable Supportive care and continue Sinemet TID (3) Hypertension: Plan: Chronic and stable Continue Norvasc (4) BPH w urinary obs/LUTS: Plan: Chronic Continue Flomax and Proscar (5) Renal mass: Plan: Urology following Multiple renal cysts seen on renal ultrasound with a possible right renal mass. CT scan suggest the possibility of renal cell carcinoma on the right side. No intervention at this time and per urology will be followed up as outpatienton 08/21/22 with his regular urologist at that time Admission and Anticipated Discharge Date Admission Date: July 25, 2022 Subjective Patient was seen this afternoon, his was at his bedside. He denies any complaints today. His urine sensitivity is back and he will need IV Cefepime for a total of 10-14 days. He will need to be discharged back to [facility] to have the IV antibiotics. [facility] is unable to go back to the [facility]. Review of Systems Review of Systems: Denies any chest pain, SOB, Dyspnea, abdominal pain, nausea, vomiting, fever or chills. Physical Exam Constitutional: WD/WN, vitals as above Neck: trachea midline, no thyromegaly Respiratory: normal respiratory effort, lungs clear to auscultation Cardiovascular: Extremities: no calf tenderness and no edema occasional extra beat, with 3/6 systolic murmur Gastrointestinal (Abdomen): normal bowel sounds, soft, nontender, no hepatosplenomegaly Skin: no rashes, warm and dry Neurologic: PERRL, EOMI, accommodation nl, no face palsy, no dysarthria Results & Data Results & Data Vital Signs (Past 12 Hours) Vital Signs Temp Pulse Pulse Resp BP Pulse Ox O2 Del Method 07/29/22 15:08 36.3 C L 68 16 128/68 95 Room Air 07/29/22 07:31 36.5 C 75 16 148/67 H 97 Room Air Laboratory Results Abnormal lab results 07/29/22 07/29/22 Range/Units 07:25 07:25 RBC 4.03 L (4.70-6.10) M/uL Hgb 12.6 L (14.0-18.0) g/dl Hct 37.3 L (42.0-52.0) % RDW Std Deviation 47.0 H (36.4-46.3) fL Lymph # (Auto) 1.09 L (1.2-3.4) K/uL [place] # (Auto) 0.78 H (0.11-0.59) K/uL Chloride 109 H (98-107) mmol/L BUN 34 H (6-23) mg/dl BUN/Creatinine Ratio 27.6 H (10-20) PG Care Time/CCT Total # of Minutes Spent Total Time Spent with Patient: Total time spent is greater than 50% in coordination of care (as documented) at patient's floor/unit and/or counseling patient: Coding Level of Care Code 44860 SUB INP/OBS CARE 2/35MIN Diagnoses Acute UTI (urinary tract infection) N39.0 Parkinson disease G20 Hypertension I10 BPH w urinary obs/LUTS N40.1; N13.8 Renal mass N28.89
[2022-07-29] MEDS: TAMSULOSIN HCL 0.4 MG CAP PO SCH (20:12)
[2022-07-30] MEDS: APIXABAN 2.5 MG TAB PO SCH (08:56)
[2022-07-30] MEDS: CARBIDOPA/LEVODOPA 25/100MG TAB PO SCH ×2 (08:57→13:23)
[2022-07-30] MEDS: amLODIPine BESYLATE 5 MG TAB PO SCH (08:57)
[2022-07-30] MEDS: FINASTERIDE 5 MG TAB PO SCH (08:57)
[2022-07-30] MEDS: ASPIRIN 81 MG ECTAB PO SCH (08:58)
[2022-07-30] MEDS: CEFEPIME 1,000 MG in SYRINGE 0 ML IV SCH ×2 (10:26→11:29)
--- NOTE | 2022-07-30 12:57 | Discharge Summary ---
Date of Service July 30, 2022 Admission HPI Per Admitting Provider Onel Davenport is an 86yo male with history of BPH with LUTS, HTN, HLP, CKD, PD and frequent UTIs presenting with one day of fever (Nz=107.8), fatigue and generalized weakness and mild dysuria. Symptoms began today. Patient was seen at the [facility] at [facility] and a UA was collected. He was not started on any antibiotics. Patient denies abdominal pain, nausea, vomiting, diarrhea or constipation. Denies chest pain, SOB or cough. No rashes. In the ER patient is afebrile, HD stable and non-toxic in appearance. Family is at bedside and assists with history. Patient is awake and alert and answering questions appropriately. ER Course: Ceftriaxone NSS Admission Exam Per Admitting Provider General: patient resting comfortably, NAD, non-toxic in appearance, AA&O x 4 Skin: warm, dry, intact, no rashes or lesions HEENT: NC/AT, PERRL, EOMI, anicteric sclera, conjunctiva without injection, external ear normal to inspection and nontender, nares patent, moist mucus membranes, dentition intact, no oropharyngeal lesions, neck supple, trachea midline, no LAD, no thyromegaly, no JVD Heart: +S1/S2, regular, no m/r/g Lungs: equal air entry bilaterally, no rales/rhonchi/wheezes Abd: +BS, soft, NT/ND, no masses/organomegaly/ascites, mild left CVA tenderness Ext: warm, 2+ pulses in UE/LE bilaterally, no clubbing/cyanosis or edema Neuro: nonfocal, patient AA&O x 4, speech intact, no facial droop, moving all extremities on command with equal strength 5/5 Principal Diagnosis Acute UTI Discharge Exam Constitutional WD/WN, vitals as above Neck trachea midline, no thyromegaly Respiratory normal respiratory effort, lungs clear to auscultation Cardiovascular Rate/Rhythm: regular rate and regular rhythm Heart Sounds: + murmur Extremities: no calf tenderness and no edema 3/6 systolic murmur Gastrointestinal (Abdomen) normal bowel sounds, soft, nontender, no hepatosplenomegaly Skin no rashes, warm and dry picc line in place right arm Neurologic PERRL, EOMI, accommodation nl, no face palsy, no dysarthria Discharge Data Allergies Allergy/AdvReac Type Severity Reaction Status Date / Time No Known Allergies Allergy Verified 06/20/22 09:01 Consultations 07/25/22 20:36 ED Decision to Admit Stat 07/27/22 14:42 Consult Urology Routine Ordered Studies 07/26/22 US renal/blad retro comp Routine 1. No renal calculi or hydronephrosis. 2. Exophytic parenchyma versus mass of the superior pole right kidney measuring 2.4 cm adjacent to the large benign-appearing cyst. Correlation with a CT or MRI renal mass protocol study recommended in order to exclude renal cell carcinoma. 3. Intraluminal debris within the urinary bladder is noted in conjunction with bladder wall thickening and trabeculation. Correlate with urinalysis. 07/26/22 14:13 CT renal wo/w con Urgent IMPRESSION: 1. Enhancing mass of the superior pole right of the right kidney measuring up to 4 cm is suggestive of renal cell carcinoma. 2. No lymphadenopathy or evidence of metastatic disease. 3. Urinary bladder distention with irregular wall thickening is suggestive of chronic bladder outlet obstruction, partially imaged. Correlation with uri nalysis is recommended. 4. Colonic diverticulosis. 5. Additional findings as above. Hospital Course (1) Acute UTI (urinary tract infection): Acute Urine Culture growing Pseudomonas. Blood culture negative. Antibiotic switched to cefepime. Per urology will need 10-14 days treatment of Cefepime Picc line placed to receive remaining antibiotic course 7 more days He has recurrent infections and probably should be on oral antibiotic suppressive therapy when finished with cefepime. Will defer to PCP (2) Parkinson disease: Chronic and stable Supportive care and continue Sinemet TID (3) Hypertension: Chronic and stable Continue Norvasc (4) BPH w urinary obs/LUTS: Chronic and stable Continue Flomax and Proscar (5) Renal mass: Urology following Multiple renal cysts seen on renal ultrasound with a possible right renal mass. CT scan suggest the possibility of renal cell carcinoma on the right side. No intervention at this time and per urology will be followed up as outpatienton 08/21/22 with his regular urologist at that time Total Time Total Time Spent Total Time Spent (In Minutes): 40 Discharge Plan Discharge Items Patient Disposition: [facility] Reason For Visit: CONFUSION, UTI Discharge Diagnosis: UTI Activity: Resume your previous activity Non-emergency contact: Primary Care Provider Call non-emergency contact if: you have any medication questions Follow-up/Referrals: [facility] [Primary Care Provider] - Diet: Heart Healthy Addtl Attending Provider Instructions: You were admitted and found to have a urinary infection. The bacteria was only susceptible to IV antibioitcs. You had a picc line placed to receive the remaining IV antibiotics. You will need 8 more days of the IV antibiotics. you may also need suppressive daily antibiotics for the recurrent infections, but we will let this up to urology and your family doctor to decide after the Cefepime course has been completed. You also were found to have a ight renal mass, You and yoyur were made aware that this mass was concerning for cancer. His chest x-ray showed no concern for metastasis. Urology stated - " the relative risk of metastasis with a 3 to 4 cm lesion is only roughly 1.8% and risk of metastasis of a lesion in between 4 to 5 cm is only 2.3%. Typically, we recommend observation with active surveillance in a patient of his age however I will ultimately let Dr. Phelps discuss and formulate a plan in outpatient follow-up for this mass. No acute urologic intervention necessary Keep appointment with Dr. Phelps on 08/21/2022 and we can keep this as hospital follow-up. Pending Studies at Discharge: No Stand-Alone Forms: My [facility] Fast[facility] Skilled Items Patient informed of condition?: Yes DNR: No Discharge Level of Care: Skilled Communicable Disease: No Discharge Prognosis: Stable Lines: PICC Urinary Catheter: No Medications and DC Order Prescriptions: New cefepime 100 gram recon soln 1 g IV Q12H Qty: 15 0RF Rx Instructions: will need tonight dose (Last dose was today at 11:29) need 15 more doses to complete the 10 day course. Continued amlodipine 2.5 mg tablet 2.5 mg PO QAM aspirin 81 mg capsule 81 mg PO QAM Eliquis 2.5 mg tablet 2.5 mg PO BID tamsulosin [Flomax] 0.4 mg capsule 0.4 mg PO QPM pantoprazole 40 mg tablet,delayed release (DR/EC) 40 mg PO 3XWK Rx Instructions: Friday, Friday, Friday finasteride [Proscar] 5 mg tablet 5 mg PO QAM carbidopa-levodopa [Sinemet] 25-100 mg tablet 1 tab PO TID cholecalciferol (vitamin D3) 50 mcg (2,000 unit) capsule 50 mcg PO DAILY cyanocobalamin (vitamin B-12) [Vitamin B-12] 1,000 mcg Tablet 1,000 mcg PO DAILY lisinopril 2.5 mg tablet 2.5 mg PO DAILY Metamucil 3.4 gram/5.4 gram Powder 1 tbsp PO DAILY Discharge Orders: Discharge Order (Routine); Ordered 07/30/22 Ordered By: Bonnie Parks Admission Data Admit Date/Time: 07/25/22 21:15 Attending Provider: Rajinder Sharma Admit Provider: Hortensia Morales Primary Care Provider: [facility] Other Providers: Hortensia Morales ; Jose Salter ; Gamaliel Wiseman ; Lino Garza ; Angelia Burkett ; Pablito Phelps ; Celia Boss ; Donna Morales ; Matthew Saenz ; Jefe Frias ; Jacki Mitchell ; Edgardo Lu ; Keshawn Jin Coding Level of Care Code 65625 INP/OBS DISCH >30 MIN Diagnoses Acute UTI (urinary tract infection) N39.0 Parkinson disease G20 Hypertension I10 BPH w urinary obs/LUTS N40.1; N13.8 Renal mass N28.89
== END 2022-07-30 14:02 | DRG 690 ==
LOC: ED 17:33 → 3W 21:15 → SUATTDRO 21:15 → 3W 21:42

== ENCOUNTER 2022-09-20 13:26 | Inpatient (IN) ==
[2022-09-20] MEDS ORDERED: SODIUM CHLORIDE 0.9% 500 ML IV SCH (14:00)
[2022-09-20] MEDS ORDERED: SODIUM CHLORIDE 0.9% 1000ML 1,000 ML IV SCH (14:00)
[2022-09-20] MEDS ORDERED: CEFEPIME 2,000 MG/20 ML VIAL IV STA (14:15)
[2022-09-20 14:22] LABS: Basophils # (auto) 0.03 K/uL (0-0.2); Basophils % (auto) 0.3 %; Eosinophils # (auto) 0.12 K/uL (0-0.50); Eosinophils % (auto) 1.4 %; Hematocrit (blood only) 40.4 % (42.0-52.0); Hemoglobin 13.4 g/dl (14.0-18.0); Immature Granulocytes # (auto) 0.04 K/uL (0.01-0.20); Immature Granulocytes % (auto) 0.5 %; Lymphocytes # (auto) 1.31 K/uL (1.2-3.4); Lymphocytes % (auto) 15.1 %; Mean Corpuscular Hemoglobin 31.5 pg (25.0-34.0); Mean Corpuscular Hgb Conc 33.2 g/dL (32.0-36.0); Mean Corpuscular Volume 94.8 fL (80.0-100.0); Mean Platelet Volume 10.9 fL (9.4-12.4); Monocytes # (auto) 0.91 K/uL (0.11-0.59); Monocytes % (auto) 10.5 %; Neutrophils # (auto) 6.27 K/uL (1.40-6.50); Neutrophils % (auto) 72.2 %; Platelet Count 192 K/uL (130-400); RDW Coefficient of Variation 13.2 % (11.5-14.5); RDW Standard Deviation 45.8 fL (36.4-46.3); Red Blood Count 4.26 M/uL (4.70-6.10); White Blood Count 8.68 K/ul (4.8-10.8)
[2022-09-20 14:39] LABS: Albumin Globulin Ratio 1.8 (0.9-2); Albumin Level 4.3 gm/dl (3.4-5.0); BUN Creatinine Ratio 29.8 (10-20); Bilirubin,Total 0.8 mg/dl (0.2-1.0); Calcium 9.7 mg/dl (8.6-10.3); Creatinine Clr Calc Pharmacy 40.6 ml/min; Est GFR (African American) 60.2 ml/min; Est GFR (Non-African American) 51.9 ml/min; Globulin 2.4 gm/dl (2.5-4.0); Magnesium 1.8 mg/dl (1.7-2.4); Potassium 4.4 mmol/L (3.5-5.1); Total Protein 6.7 gm/dl (6.0-8.3)
[2022-09-20 14:44] LABS: Troponin I High Sensitivity 5.3 pg/ml (0-20)
--- NOTE | 2022-09-20 15:10 | XRay Report ---
XR chest 1V portable HISTORY: 87 years-old Male weakness acute weakness COMPARISON: 07/25/2022 TECHNIQUE: AP view of the chest FINDINGS: Cardiac silhouette is enlarged. No pneumothorax, pleural effusion, airspace consolidation or pulmonar y edema. Spondylitic spurring of the spine. Chronic lateral left rib fractures. IMPRESSION: No acute processes. ACT 112: Negative or not required by law. The above report was generated using voice recognition software. It may contain grammatical, syntax o r spelling errors. Electronically signed by: Satinder Hernandez M.D. 09/20/2022 3:08 PM
[2022-09-20 16:16] LABS: Appearance Urine Clear (Clear); Bacteria Urine Automated Negative (Negative); Bilirubin Urine Negative (Negative); Blood Urine Negative (Negative); Color Urine Yellow; Epithelial Cell Urine Auto 0-5 /lpf (0-5); Glucose Urine UA Negative (Negative); Ketones Urine Negative (Negative); Leukocyte Esterase Urine 3+ (Negative); Nitrite Urine Negative (Negative); Protein Urine Negative (Negative); RBC Urine Automated 0-4 /hpf (0-4); Specific Gravity Urine 1.006 (1.000-1.030); Urobilinogen Urine Negative (Negative); WBC Urine Automated >30 /hpf (0-5)
--- NOTE | 2022-09-20 16:36 | Electrocardiogram Report ---
Test Reason : Blood Pressure : / mmHG Vent. Rate : 084 BPM Atrial Rate : 066 BPM P-R Int : 000 ms QRS Dur : 086 ms QT Int : 362 ms P-R-T Axes : 000 -22 105 degrees QTc Int : 427 ms Sinus rhythm with atrial and ventricular ectopy Low voltage QRS Nonspecific T wave abnormality Abnormal ECG When compared with ECG of 25-JUL-2022 17:47, Nonspecific T wave abnormality, worse in Inferior leads Confirmed by Lino Stahl ([id number]) on 09/20/2022 4:36:08 PM Referred By: Confirmed By:Martinez Stahl
--- NOTE | 2022-09-20 16:41 | Emergency Department Note ---
Impression & Plan Weakness, Recurrent UTI (urinary tract infection) ED Provider Note INFORMANT: Patient and ED PROVIDER(S): Malvin Sanchez MD CHIEF COMPLAINT: Lethargy and weakness PLAN: Disposition: Admitted Condition: Good Outpatient prescription management: none Referral: None MEDICAL DECISION MAKING: Patient presented to the emergency department because of weakness and lethargy. was concerned about UTI as he has a history of the same. Patient underwent a work-up. His CBC and chemistry panels were unremarkable. Urinalysis did show signs of infection. Cultures were sent. Patient was empirically treated with IV cefepime based upon prior culture results after discussion with ED pharmacist. Head CT was performed and was negative. Consultation was made with Dr. Dr. Wade Ferro f the [facility] service. Case discussed and diagnostics were reviewed. Patient was evaluated in the ER for further management. After review of the information above and other included data, I feel the patient requires admission. Discussed with rig manager. Triage Nursing notes reviewed and agree them. Vital Signs: reviewed and remarkable for no significant abnormalities Prior /Outside records reviewed: Urology records reviewed. Differential diagnosis: Infection, hypoglycemia, electrolyte abnormalities, overdose, toxicologic, cardiac sources, intracerebral event, neurologic, trauma, as well as other pathologies. Diagnostics, as interpreted by me: ECG: Twelve-lead ECG reveals a sinus rhythm with PACs at 84 bpm. Low voltage QRS. Nonspecific ST. Cardiac Monitoring: Cardiac monitoring ordered by me: The patient was placed on continuous cardiac monitoring and observed. It revealed a normal sinus rhythm at 82 beats per minute without ectopy or evidence of dysrhythmia. Medical decision rules: none Imaging studies: Head CT: A noncontrast CT scan of the head was performed and was negative for tumor, fracture, intracranial hemorrhage, or other acute pathology. Chest x-ray. Findings: A chest x-ray was performed and revealed no pneumothorax, effusion, infiltrate, pulmonary edema, free air under the diaphragm, or wide mediastinum. Impression: No acute disease. HPI: The patient is a 87 year old male who presents to the Emergency Room with complaints of weakness and lethargy. This started over the last day or 2 and is worsening. The patient also notes the following associated symptoms, fatigue, pain in the posterior left shoulder area, change in urine color. The patient has been prescribed no medication for relieving factors. Current pain is rated as 3/10. is present and helps with history. She notes that he has had multiple recurrent UTIs in the past and this is a similar presentation. Pt denies LOC, headache, fevers, chills, diaphoresis, visual changes, neck pain, chest pain, breathing difficulties, nausea, vomiting, abdominal pain, low back pain, melena, hematochezia, numbness, weakness, lymphadenopathy, rash, or other complaints. PAST MEDICAL HISTORY: See Below, UTI, COVID, hypertension PAST SURGICAL HISTORY: See Below, SOCIAL HISTORY: See Below, HOME MEDICATIONS: See Below ALLERGIES: See Below VITALS: See Below PHYSICAL EXAMINATION: GENERAL: Awake, tired-appearing, in no distress HENT: Normocephalic, atraumatic. Oropharynx unremarkable. EYES: Normal conjunctiva. Sclera non-icteric. NECK: Inspection normal. Non-tender. Supple. No nuchal rigidity. FROM. No masses. RESPIRATORY: Clear to auscultation. No wheezes. No rales. Normal respiratory effort. CARDIAC: Normal rate. Normal rhythm. No murmurs. No rubs. Extremities warm and well perfused. Pulses equal. No JVD. GI: Soft, non-distended. No tenderness to palpation. No rebound or guarding. No masses. RECTAL: Deferred. MUSCULOSKELETAL: Atraumatic. Chest examination reveals no tenderness. The back is symmetrical on inspection without obvious abnormality. There is no CVA tenderness to palpation. No joint edema. LOWER EXTREMITIES: Calves are equal size bilaterally and non-tender. No edema. No discoloration. NEURO: Slow to answer questions however relatively normal sensorium. Speech slow. Generally weak but no focal sensory or motor deficits noted. SKIN: No rash or jaundice noted. Past Med/Surg History Medical History BPH w urinary obs/LUTS Dementia Diverticulosis of large intestine without perforation or abscess without b leeding Dysarthria and anarthria Dysphagia Dysphonia Hearing deficit [place] left History of basal cell carcinoma History of blood clots superficial - LLE - 2 years ago, RLE - approx 1 year ago? History of SCC (squamous cell carcinoma) of skin Hyperlipidemia Hypertension 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 stage III Irregular heart rhythm follows w/ Dr. Gayle Muscle spasm of back Other abnormalities of gait and mobility Parkinson disease Poor historian Resides in intermediate facility [facility] Surgical History History of colonoscopy History of eye surgery Rt eye History of knee surgery Rt Status post Mohs surgery Family History Other Adopted Social History Smoking Status: Former smoker Second Hand Exposure: No; Do You Dip or Chew Tobacco: No; Hx Alcohol Use: Yes Alcohol type: beer, wine and hard liquor Alcohol Intake Frequency: Monthly or Less Hx Substance Use: No Preferred Language: Ugandan Communication Ability: Effective College Admissions Counselor Required: No Beliefs That Will Affect Care: None marital status: Current Living Situation: Spouse and Personal Care Facility Current Living Situation Comment: [facility]. current occupational status: retired Feels Safe at Home: Yes Assistive Devices: Cane and Walker Allergies Allergies Allergy/AdvReac Type Severity Reaction Status Date / Time No Known Allergies Allergy Verified 06/20/22 09:01 Home Meds Home Medications Medication Instructions Recorded Confirmed amlodipine 2.5 mg tablet 2.5 mg PO QAM 12/04/21 09/20/22 apixaban 2.5 mg tablet (Eliquis) 2.5 mg PO BID 12/04/21 09/20/22 aspirin 81 mg capsule 81 mg PO QAM 12/04/21 09/20/22 carbidopa 25 mg-levodopa 100 mg 1 tab PO TID 12/04/21 09/20/22 tablet (Sinemet) cholecalciferol (vitamin D3) 50 50 mcg PO DAILY 12/04/21 09/20/22 mcg (2,000 unit) capsule finasteride 5 mg tablet (Proscar) 5 mg PO QAM 12/04/21 09/20/22 pantoprazole 40 mg tablet,delayed 40 mg PO 3XWK 12/04/21 09/20/22 release tamsulosin 0.4 mg capsule (Flomax) 0.4 mg PO QPM 12/04/21 09/20/22 cyanocobalamin (vitamin B-12) 1,000 mcg PO DAILY 01/21/22 09/20/22 1,000 mcg tablet (Vitamin B-12) lisinopril 2.5 mg tablet 2.5 mg PO DAILY 07/25/22 09/20/22 psyllium husk 3.4 gram/5.4 gram 1 tbsp PO DAILY 07/25/22 09/20/22 oral powder (Metamucil) Results & Data (ED) Vital Signs Vital Signs - 24 hr 09/20/22 13:52 09/20/22 14:20 09/20/22 14:20 Temperature 36.4 C Temperature Source Oral Pulse Rate 110 H 113 H Pulse Rate [Apical] Pulse Rhythm [Apical] Respiratory Rate 24 Respiratory Effort / Characteristics Non-Labored Spontaneous Respiratory Depth Normal Respiratory Pattern Regular Blood Pressure 130/86 Blood Pressure [Right Arm] Blood Pressure Mean 100 Blood Pressure Mean [Right Arm] Blood Pressure Position Lying Blood Pressure Position [Right Arm] Pulse Oximetry 99 99 Oxygen Delivery Method Room Air Room Air Sepsis Recent Fever Within 48 Hours No Sepsis New/Unexplained Change in Mental Status Yes Sepsis Action Taken by Nursing Physician Notified 09/20/22 14:20 09/20/22 16:50 09/20/22 18:00 Temperature 36.4 C Temperature Source Oral Pulse Rate 82 Pulse Rate [Apical] 113 H 87 Pulse Rhythm [Apical] Regular Regular Respiratory Rate 24 24 Respiratory Effort / Characteristics Non-Labored Spontaneous Non-Labored Spontaneous Respiratory Depth Normal Normal Respiratory Pattern Regular Regular Blood Pressure Blood Pressure [Right Arm] 130/86 146/92 H Blood Pressure Mean Blood Pressure Mean [Right Arm] 100 110 Blood Pressure Position Blood Pressure Position [Right Arm] Lying Lying Pulse Oximetry 99 95 Oxygen Delivery Method Room Air Room Air Sepsis Recent Fever Within 48 Hours Sepsis New/Unexplained Change in Mental Status Sepsis Action Taken by Nursing Laboratory Data 09/20/22 13:50 09/20/22 13:50 Lab Results 09/20/22 09/20/22 09/20/22 Range/Units 13:50 13:50 13:50 WBC 8.68 (4.8-10.8) K/ul RBC 4.26 L (4.70-6.10) M/uL Hgb 13.4 L (14.0-18.0) g/dl Hct 40.4 L (42.0-52.0) % MCV 94.8 (80.0-100.0) fL MCH 31.5 (25.0-34.0) pg MCHC 33.2 (32.0-36.0) g/dL RDW Std Deviation 45.8 (36.4-46.3) fL RDW Coeff of Ramy 13.2 (11.5-14.5) % Plt Count 192 (130-400) K/uL MPV 10.9 (9.4-12.4) fL Immature Gran % (Auto) 0.5 % Neut % (Auto) 72.2 % Lymph % (Auto) 15.1 % [place] % (Auto) 10.5 % Eos % (Auto) 1.4 % Baso % (Auto) 0.3 % Neut # (Auto) 6.27 (1.40-6.50) K/uL Lymph # (Auto) 1.31 (1.2-3.4) K/uL [place] # (Auto) 0.91 H (0.11-0.59) K/uL Eos # (Auto) 0.12 (0-0.50) K/uL Baso # (Auto) 0.03 (0-0.2) K/uL Immature Gran # (Auto) 0.04 (0.01-0.20) K/uL Sodium 137 (136-145) mmol/L Potassium 4.4 (3.5-5.1) mmol/L Chloride 104 (98-107) mmol/L Carbon Dioxide 27 (21-32) mmol/L Anion Gap 6 (3-11) BUN 37 H (6-23) mg/dl Creatinine 1.24 (0.6-1.4) mg/dl Est Cr Clr Drug Dosing 40.6 ml/min Est GFR ( Amer) 60.2 ml/min Est GFR (Non-Af Amer) 51.9 ml/min BUN/Creatinine Ratio 29.8 H (10-20) Glucose 91 (70-99(Fasting)) mg/dl Lactate (0.4-2.0) mmol/L Calcium 9.7 (8.6-10.3) mg/dl Magnesium 1.8 (1.7-2.4) mg/dl Total Bilirubin 0.8 (0.2-1.0) mg/dl AST 16 (13-39) U/L ALT 6 L (7-52) U/L Alkaline Phosphatase 81 (34-104) U/L Troponin I High Sens 5.3 (0-20) pg/ml Total Protein 6.7 (6.0-8.3) gm/dl Albumin 4.3 (3.4-5.0) gm/dl Globulin 2.4 L (2.5-4.0) gm/dl Albumin/Globulin Ratio 1.8 (0.9-2) TSH 2.782 (0.300-4.500) uIu/ml Urine Color Urine Appearance (Clear) Urine pH (4.5-7.5) Ur Specific [place] (1.000-1.030) Urine Protein (Negative) Urine Glucose (UA) (Negative) Urine Ketones (Negative) Urine Blood (Negative) Urine Nitrite (Negative) Urine Bilirubin (Negative) Urine Urobilinogen (Negative) Ur Leukocyte Esterase (Negative) Urine WBC (Auto) (0-5) /hpf Urine RBC (Auto) (0-4) /hpf U Hyaline Cast (Auto) (0-5) /lpf U Epithel Cells (Auto) (0-5) /lpf Urine Bacteria (Auto) (Negative) SARS-CoV-2, RNA, NAAT (NEGATIVE) 09/20/22 09/20/22 09/20/22 Range/Units 14:03 14:05 15:55 WBC (4.8-10.8) K/ul RBC (4.70-6.10) M/uL Hgb (14.0-18.0) g/dl Hct (42.0-52.0) % MCV (80.0-100.0) fL MCH (25.0-34.0) pg MCHC (32.0-36.0) g/dL RDW Std Deviation (36.4-46.3) fL RDW Coeff of Ramy (11.5-14.5) % Plt Count (130-400) K/uL MPV (9.4-12.4) fL Immature Gran % (Auto) % Neut % (Auto) % Lymph % (Auto) % [place] % (Auto) % Eos % (Auto) % Baso % (Auto) % Neut # (Auto) (1.40-6.50) K/uL Lymph # (Auto) (1.2-3.4) K/uL [place] # (Auto) (0.11-0.59) K/uL Eos # (Auto) (0-0.50) K/uL Baso # (Auto) (0-0.2) K/uL Immature Gran # (Auto) (0.01-0.20) K/uL Sodium (136-145) mmol/L Potassium (3.5-5.1) mmol/L Chloride (98-107) mmol/L Carbon Dioxide (21-32) mmol/L Anion Gap (3-11) BUN (6-23) mg/dl Creatinine (0.6-1.4) mg/dl Est Cr Clr Drug Dosing ml/min Est GFR ( Amer) ml/min Est GFR (Non-Af Amer) ml/min BUN/Creatinine Ratio (10-20) Glucose (70-99(Fasting)) mg/dl Lactate 1.4 (0.4-2.0) mmol/L Calcium (8.6-10.3) mg/dl Magnesium (1.7-2.4) mg/dl Total Bilirubin (0.2-1.0) mg/dl AST (13-39) U/L ALT (7-52) U/L Alkaline Phosphatase (34-104) U/L Troponin I High Sens (0-20) pg/ml Total Protein (6.0-8.3) gm/dl Albumin (3.4-5.0) gm/dl Globulin (2.5-4.0) gm/dl Albumin/Globulin Ratio (0.9-2) TSH (0.300-4.500) uIu/ml Urine Color Yellow Urine Appearance Clear (Clear) Urine pH 7.0 (4.5-7.5) Ur Specific [place] 1.006 (1.000-1.030) Urine Protein Negative (Negative) Urine Glucose (UA) Negative (Negative) Urine Ketones Negative (Negative) Urine Blood Negative (Negative) Urine Nitrite Negative (Negative) Urine Bilirubin Negative (Negative) Urine Urobilinogen Negative (Negative) Ur Leukocyte Esterase 3+ H (Negative) Urine WBC (Auto) >30 H (0-5) /hpf Urine RBC (Auto) 0-4 (0-4) /hpf U Hyaline Cast (Auto) 1-5 (0-5) /lpf U Epithel Cells (Auto) 0-5 (0-5) /lpf Urine Bacteria (Auto) Negative (Negative) SARS-CoV-2, RNA, NAAT NEGATIVE (NEGATIVE) Administered Medications Sodium Chloride (Nss 1000ml) 1,000 mls @ 125 mls/hr IV .Q8H CORI Stop: 09/20/22 21:59 Last Admin: 09/20/22 13:58 Dose: 125 mls/hr Documented By: KT Discontinued Medications Sodium Chloride (Nss) 500 mls @ 999 mls/hr IV .Q31M CORI Stop: 09/20/22 14:30 Last Infusion: 09/20/22 15:34 Dose: 0 mls/hr Documented By: Admin: 09/20/22 13:58 Dose: 999 mls/hr Documented By: TARYN Cefepime HCl (Maxipime) 2,000 mg in 20 mls @ 5 mls/min IV NOW STA; Protocol Stop: 09/20/22 14:18 Last Admin: 09/20/22 15:33 Dose: 5 mls/min Documented By: JACLYN Imaging Data Radiologist's Impression: Chest X-Ray 09/20/22 13:50 XR chest 1V portable HISTORY: 87 years-old Male weakness acute weakness COMPARISON: 07/25/2022 TECHNIQUE: AP view of the chest FINDINGS: Cardiac silhouette is enlarged. No pneumothorax, pleural effusion, airspace consolidation or pulmonary edema. Spondylitic spurring of the spine. Chronic lateral left rib fractures. IMPRESSION: No acute processes. ACT 112: Negative or not required by law. The above report was generated using voice recognition software. It may contain grammatical, syntax or spelling errors. Electronically signed by: Satinder Hernandez M.D. 09/20/2022 3:[address] 09/20/22 16:41 CT OF THE HEAD WITHOUT CONTRAST CLINICAL HISTORY: Lethargy. COMPARISON STUDY: MRI of the brain June 27, 2020. Head CT June 03, 2022. CT DOSE: 625.80 mGy.cm TECHNIQUE: Helical axial images of the head were obtained without IV contrast. Automated exposure control was utilized for the study. A dose lowering technique was utilized adhering to the principles of ALARA. FINDINGS: No acute intracranial hemorrhage, midline shift or mass effect is present. White matter hypodensities are unchanged and favor small vessel disease. The ventricular system is stable. Atrophy is again noted. There has been no change in appearance of the brain. The basal cisterns are patent. No extra-axial collections are present. There are no findings to suggest acute dural sinus thrombosis or acute territorial infarct. No significant calvarial abnormalities are present. Visualized portions of the sinuses and mastoid air cells are clear. IMPRESSION: No acute intracranial findings. No change in appearance of the brain. ACT 112: Negative or not required by law. Electronically signed by: Ez Merino M.D. 09/20/2022 5:13 PM Discharge Plan Visit Data Chief Complaint: Lethargic Stated Complaint: LETHARGIC, GENERAL HEALTH DECLINE ED Provider: Malvin Sanchez Discharge Problem: Weakness, Recurrent UTI (urinary tract infection) Forms Stand Alone Forms: My [facility] Prescriptions Prescriptions: No Action amlodipine 2.5 mg tablet 2.5 mg PO QAM aspirin 81 mg capsule 81 mg PO QAM Eliquis 2.5 mg tablet 2.5 mg PO BID tamsulosin [Flomax] 0.4 mg capsule 0.4 mg PO QPM pantoprazole 40 mg tablet,delayed release (DR/EC) 40 mg PO 3XWK Rx Instructions: Friday, Friday, Friday finasteride [Proscar] 5 mg tablet 5 mg PO QAM carbidopa-levodopa [Sinemet] 25-100 mg tablet 1 tab PO TID cholecalciferol (vitamin D3) 50 mcg (2,000 unit) capsule 50 mcg PO DAILY cyanocobalamin (vitamin B-12) [Vitamin B-12] 1,000 mcg Tablet 1,000 mcg PO DAILY lisinopril 2.5 mg tablet 2.5 mg PO DAILY Metamucil 3.4 gram/5.4 gram Powder 1 tbsp PO DAILY Referrals Referrals: Doyle Pimentel [Primary Care Provider] -
--- NOTE | 2022-09-20 17:14 | CT Scan Report ---
CT OF THE HEAD WITHOUT CONTRAST CLINICAL HISTORY: Lethargy. COMPARISON STUDY: MRI of the brain June 27, 2020. Head CT June 03, 2022. CT DOSE: 625.80 mGy.cm TECHNIQUE: Helical axial images of the head were obtained without IV contrast. Automated exposure con trol was utilized for the study. A dose lowering technique was utilized adhering to the principles o f ALARA. FINDINGS: No acute intracranial hemorrhage, midline shift or mass effect is present. White matter hyp odensities are unchanged and favor small vessel disease. The ventricular system is stable. Atrophy is again noted. There has been no change in appearance of the brain. The basal cisterns are patent. No extra-axial collections are present. There are no findings to suggest acute dural sinus thrombosis or acute territorial infarct. No significant calvarial abnormalities are present. Visualized portions o f the sinuses and mastoid air cells are clear. IMPRESSION: No acute intracranial findings. No change in appearance of the brain. ACT 112: Negative or not required by law. Electronically signed by: Ez Merino M.D. 09/20/2022 5:13 PM
--- NOTE | 2022-09-20 18:28 | History & Physical Report ---
Date of Service September 20, 2022 Assessment & Plan (1) Generalized weakness: Plan: -Admit to med/tele -Currently stable -Started to develop generalized weakness/lethargy yesterday, worse today -Appears to have another recurrent UTI, negative CVA tenderness on exam -CT of the head was negative for acute changes, CXR negative for acute changes, no focal neuro defects -S/P one dose of Cefepime and 500 mL NSS in the ED -Will continue on Cefepime for now as he frequently grows pseudomonas and klebsiella -Will give 1L LR on admission as he appears dehydrated -Follow blood and urine cultures -Home Eliquis for DVT PPX -AM CBC, BMP, mag, PT/INR (2) Acute UTI (urinary tract infection): Plan: -Continue Cefepime for now until urine and blood cultures result -Currently with condom cath in place; was placed in the ED prior to admission -Will have nursing staff perform bladder scan to ensure he is not retaining as he is still having the sensation of urinary frequency, if needed will place a thurston cath (3) BPH w urinary obs/LUTS: Plan: -Continue thurston cath - placed for urinary retention in the ER. Consult urology given ongoing intermittent urine retention leading to UTIs. -Continue flomax and finasteride (4) Superficial thrombophlebitis: Plan: -Continue Eliquis (5) Parkinson disease: Plan: -Continue Carbidopa-Levodopa; will give his afternoon dose STAT (6) Hypertension: Plan: -Stable -Continue amlodipine and lisinopril Plan The patient was discussed with Dr. Ferro at the time of the admission History of Present Illness Chief Complaint: generalized weakness Primary Care Provider: [facility] Onel Davenport is an 87 year old male with a PMH significant for BPH with LUTS and recurrent UTI's, HTN, HLP, CKD, Parkinson's disease with dementia, and superficial phlebitis (on Eliquis) who presented to the [facility] ED from [facility] via EMS due to generalized weakness. In the ED the patient was tachycardic with HR in the 110's but otherwise stable. Labs were significant for a UA with 3+ leukocyte esterase and > [address] of the head was read as "No acute intracranial findings. No change in appearance of the brain.". Chest xray was negative for acute process. Prior to admission the patient was given a dose of cefepime and 500 mL NSS. At the time of the exam the patient was sleeping comfortably in bed with his sitting bedside, history was obtained from his . The patient started to act more confused than his baseline yesterday. He does have baseline dementia, he normally is oriented to self and their home. Today their physical therapist tried to work with him but the patient was took weak. His states she brought him to the ED because this is typically how he acts when he gets UTI's. The patient was easy to wake but appears fatigued and weak. He denies any complaints besides having the sensation that he has to urinate frequently, currently has a condom catheter in place. I spoke to his regarding code status, at this time the patient would not want CPR or defibrillation in the event of cardiac arrest. They would still want a trial of intubation in the event of respiratory arrest. Please refer to Dr. Ferro's attestation for any changes to the treatment plan Allergies Allergy/AdvReac Type Severity Reaction Status Date / Time No Known Allergies Allergy Verified 06/20/22 09:01 Home Medications Medication Instructions Recorded Confirmed Type amlodipine 2.5 mg tablet 2.5 mg PO QAM 12/04/21 09/20/22 History apixaban 2.5 mg tablet (Eliquis) 2.5 mg PO BID 12/04/21 09/20/22 History aspirin 81 mg capsule 81 mg PO QAM 12/04/21 09/20/22 History carbidopa 25 mg-levodopa 100 mg 1 tab PO TID 12/04/21 09/20/22 History tablet (Sinemet) cholecalciferol (vitamin D3) 50 50 mcg PO DAILY 12/04/21 09/20/22 History mcg (2,000 unit) capsule finasteride 5 mg tablet (Proscar) 5 mg PO QAM 12/04/21 09/20/22 History pantoprazole 40 mg tablet,delayed 40 mg PO 3XWK 12/04/21 09/20/22 History release tamsulosin 0.4 mg capsule (Flomax) 0.4 mg PO QPM 12/04/21 09/20/22 History cyanocobalamin (vitamin B-12) 1,000 mcg PO DAILY 01/21/22 09/20/22 History 1,000 mcg tablet (Vitamin B-12) lisinopril 2.5 mg tablet 2.5 mg PO DAILY 07/25/22 09/20/22 History psyllium husk 3.4 gram/5.4 gram 1 tbsp PO DAILY 07/25/22 09/20/22 History oral powder (Metamucil) Past Med/Surg History Medical History BPH w urinary obs/LUTS Dementia Diverticulosis of large intestine without perforation or abscess without bleeding Dysarthria and anarthria Dysphagia Dysphonia Hearing deficit [place] left History of basal cell carcinoma History of blood clots superficial - LLE - 2 years ago, RLE - approx 1 year ago? History of SCC (squamous cell carcinoma) of skin Hyperlipidemia Hypertension 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 stage III Irregular heart rhythm follows w/ Dr. Gayle Muscle spasm of back Other abnormalities of gait and mobility Parkinson disease Poor historian Resides in longterm facility current resident of [facility] Surgical History History of colonoscopy History of eye surgery Rt eye History of knee surgery Rt Status post Mohs surgery Family History Other Adopted Social History Smoking Status: Former smoker Second Hand Exposure: No; Do You Dip or Chew Tobacco: No; Hx Alcohol Use: Yes Alcohol type: beer, wine and hard liquor Alcohol Intake Frequency: Monthly or Less Hx Substance Use: No Preferred Language: Monegasque Communication Ability: Effective Maternity Floor Supervisor Required: No Beliefs That Will Affect Care: None marital status: Current Living Situation: Spouse and Personal Care Facility Current Living Situation Comment: [facility]. 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, left pupil is round and reactive to light, dry mucus membranes, trachea midline, no thyromegaly Chest/Pulm: No respiratory distress, symmetrical chest expansion, clear breath sounds throughout Cardiac: tachycardic rate, regular rhythm, no murmurs noted Abdomen: Negative for ascites and bruising, normoactive bowel sounds, soft, tender to palpation over the suprapubic region : Currently with thurston cath in place (placed in the ED), draining cloudy, yellow urine, negative BL CVA tenderness Musculoskeletal: Symmetrical and without signs of acute trauma, patient able to move upper and lower extremities voluntarily Extremities: Radial, dorsalis pedis, and posterior tibial pulses are intact and symmetrical, no edema noted in the BL LE's Skin: Warm, dry, no rashes , lesions, or scars noted Neuro: Alert and oriented to person only, CN II-XII tested and intact, symmetrical strength, baseline tremors noted Psych: no acute distress, pleasant and cooperative during the exam Results & Data Results & Data Vital Signs (Past 12 Hours) Vital Signs Temp Pulse Pulse Resp BP BP Pulse Ox 09/20/22 18:00 82 09/20/22 16:50 87 24 146/92 H 95 09/20/22 14:20 36.4 C 113 H 24 130/86 99 09/20/22 14:20 99 09/20/22 14:20 36.4 C 113 H 24 130/86 99 09/20/22 13:52 110 H O2 Del Method 09/20/22 18:00 09/20/22 16:50 Room Air 09/20/22 14:20 Room Air 09/20/22 14:20 Room Air 09/20/22 14:20 Room Air 09/20/22 13:52 Laboratory Results Abnormal lab results 09/20/22 09/20/22 09/20/22 Range/Units 13:50 13:50 15:55 RBC 4.26 L (4.70-6.10) M/uL Hgb 13.4 L (14.0-18.0) g/dl Hct 40.4 L (42.0-52.0) % [place] # (Auto) 0.91 H (0.11-0.59) K/uL BUN 37 H (6-23) mg/dl BUN/Creatinine Ratio 29.8 H (10-20) ALT 6 L (7-52) U/L Globulin 2.4 L (2.5-4.0) gm/dl Ur Leukocyte Esterase 3+ H (Negative) Urine WBC (Auto) >30 H (0-5) /hpf Diagnostic Findings Chest X-Ray 09/20/22 13:50 XR chest 1V portable HISTORY: 87 years-old Male weakness acute weakness COMPARISON: 07/25/2022 TECHNIQUE: AP view of the chest FINDINGS: Cardiac silhouette is enlarged. No pneumothorax, pleural effusion, airspace consolidation or pulmonary edema. Spondylitic spurring of the spine. Chronic lateral left rib fractures. IMPRESSION: No acute processes. ACT 112: Negative or not required by law. The above report was generated using voice recognition software. It may contain grammatical, syntax or spelling errors. Electronically signed by: Satinder Hernandez M.D. 09/20/2022 3:[address] 09/20/22 16:41 CT OF THE HEAD WITHOUT CONTRAST CLINICAL HISTORY: Lethargy. COMPARISON STUDY: MRI of the brain June 27, 2020. Head CT June 03, 2022. CT DOSE: 625.80 mGy.cm TECHNIQUE: Helical axial images of the head were obtained without IV contrast. Automated exposure control was utilized for the study. A dose lowering tech nique was utilized adhering to the principles of ALARA. FINDINGS: No acute intracranial hemorrhage, midline shift or mass effect is present. White matter hypodensities are unchanged and favor small vessel disease. The ventricular system is stable. Atrophy is again noted. There has been no change in appearance of the brain. The basal cisterns are patent. No extra-axial collections are present. There are no findings to suggest acute dural sinus thrombosis or acute territorial infarct. No significant calvarial abnormalities are present. Visualized portions of the sinuses and mastoid air cells are clear. IMPRESSION: No acute intracranial findings. No change in appearance of the brain. ACT 112: Negative or not required by law. Electronically signed by: Ez Merino M.D. 09/20/2022 5:13 PM ECG Additional Comments: Sinus rhythm with atrial and ventricular ectopy Low voltage QRS Nonspecific T wave abnormality Abnormal ECG When compared with ECG of 25-JUL-2022 17:47, Nonspecific T wave abnormality, worse in Inferior leads Confirmed by Lino Stahl ([id number]) on 09/20/2022 4:36:08 PM Code Status & VTE Plan Code Status Conditional; no CPR or defibrillation; trial on intubation only in the event of respiratory arrest VTE Prophylaxis Plan VTE Prophylaxis will be ordered: Yes Supervising Physician Co-Signing Physician Notes I personally saw and examined the patient. I verified all tyler points and agree with Vijay Casarez PA-C with the following exceptions and/or additions: 87 year old male presents to the ER with progressive fatigue which is his usual presentation when he has a UTI. > 600ml bladder scan in the ER. O/E HS RRR, systolic murmur in apex, Chest CTAB, Abdo SNT, no CVA tenderness, b/l UE rigidity A/P UTI - cover for pseudomonas with cefepime pending urine cultures, thurston catheter placed for urinary retention, consult urology PG Care Time/CCT Total # of Minutes Spent Total Time Spent with Patient: Total time spent is greater than 50% in coordination of care (as documented) at patient's floor/unit and/or counseling patient: Coding [place] [address] INT INP/OBS CARE 3/75MIN Patient Type Established Medical Decision Making High Complexity Diagnoses Generalized weakness R53.1 Acute UTI (urinary tract infection) N39.0 BPH w urinary obs/LUTS N40.1; N13.8 Superficial thrombophlebitis I80.9 Parkinson disease G20 Hypertension I10
[2022-09-20] MEDS ORDERED: LACTATED RINGER'S 1,000 ML IV ONE (18:52)
[2022-09-20] MEDS ORDERED: CARBIDOPA/LEVODOPA 25/100MG TAB PO STA (18:53)
[2022-09-20] MEDS: TAMSULOSIN HCL 0.4 MG CAP PO SCH (22:59)
[2022-09-20] MEDS: APIXABAN 2.5 MG TAB PO SCH (22:59)
[2022-09-21] MEDS: CEFEPIME 2,000 MG in SYRINGE 0 ML IV SCH ×2 (01:23→14:23)
[2022-09-21 07:48] LABS: Basophils # (auto) 0.03 K/uL (0-0.2); Basophils % (auto) 0.4 %; Eosinophils # (auto) 0.15 K/uL (0-0.50); Eosinophils % (auto) 2.1 %; Hematocrit (blood only) 39.1 % (42.0-52.0); Hemoglobin 13.3 g/dl (14.0-18.0); Immature Granulocytes # (auto) 0.04 K/uL (0.01-0.20); Immature Granulocytes % (auto) 0.6 %; Lymphocytes # (auto) 0.87 K/uL (1.2-3.4); Lymphocytes % (auto) 12.1 %; Mean Corpuscular Hemoglobin 31.4 pg (25.0-34.0); Mean Corpuscular Volume 92.2 fL (80.0-100.0); Mean Platelet Volume 11.1 fL (9.4-12.4); Monocytes # (auto) 0.76 K/uL (0.11-0.59); Monocytes % (auto) 10.6 %; Neutrophils # (auto) 5.35 K/uL (1.40-6.50); Neutrophils % (auto) 74.2 %; Platelet Count 178 K/uL (130-400); RDW Coefficient of Variation 13.2 % (11.5-14.5); RDW Standard Deviation 44.5 fL (36.4-46.3); Red Blood Count 4.24 M/uL (4.70-6.10)
[2022-09-21 07:57] LABS: BUN Creatinine Ratio 23.4 (10-20); Calcium 9.5 mg/dl (8.6-10.3); Creatinine Clr Calc Pharmacy 45.5 ml/min; Est GFR (Non-African American) 62.1 ml/min; Potassium 4.7 mmol/L (3.5-5.1)
[2022-09-21] MEDS: APIXABAN 2.5 MG TAB PO SCH ×2 (10:01→21:14)
[2022-09-21] MEDS: amLODIPine BESYLATE 5 MG TAB PO SCH (10:01)
[2022-09-21] MEDS: ASPIRIN 81 MG ECTAB PO SCH (10:01)
[2022-09-21] MEDS: CARBIDOPA/LEVODOPA 25/100MG TAB PO SCH ×3 (10:01→21:14)
[2022-09-21] MEDS: lisinopril 2.5 MG TAB PO SCH (10:02)
[2022-09-21] MEDS: FINASTERIDE 5 MG TAB PO SCH (10:02)
--- NOTE | 2022-09-21 11:30 | Urology Consultation ---
Date of Consultation September 21, 2022 Assessment & Plan (1) Acute UTI (urinary tract infection): Recurrent UTIs to include urinary retention in the setting of deconditioning and Parkinson's disease Continue Garcia catheter for now Cultures pending Empiric antibiotics His greatly prefers to send him home without a Garcia catheter, I am uncertain if he will succeed at voiding spontaneously and protecting against reinfection of his bladder We will arrange outpatient follow-up and he can discuss options such as prophylactic antibiotics with Dr. Phelps History of Present Illness Attending Physician: Blake Wolf MD History of Present Illness 87-year-old male with long history of urinary tract infections and retention who follows closely with Dr. Phelps Was most recently seen in the office around a month ago and underwent cystoscopy at that time Unfortunately developed some behavioral changes and fatigue yesterday which necessitated an ER visit Upon arrival he was evaluated and ultimately had a Garcia catheter placed He has been hemodynamically stableafebrile since then He has borderline tachycardichowever he has substantial variations from 60-1 20 and has a long history of irregular heart rhythm He is very comfortable right now with Garcia catheter in place He has a very limited mobilityParkinson's His , however, is concerned about him going home with a Garcia catheter Allergies Allergy/AdvReac Type Severity Reaction Status Date / Time No Known Allergies Allergy Verified 06/20/22 09:01 Home Medications Medication Instructions Recorded Confirmed Type amlodipine 2.5 mg tablet 2.5 mg PO QAM 12/04/21 09/20/22 History apixaban 2.5 mg tablet (Eliquis) 2.5 mg PO BID 12/04/21 09/20/22 History aspirin 81 mg capsule 81 mg PO QAM 12/04/21 09/20/22 History carbidopa 25 mg-levodopa 100 mg 1 tab PO TID 12/04/21 09/20/22 History tablet (Sinemet) cholecalciferol (vitamin D3) 50 50 mcg PO DAILY 12/04/21 09/20/22 History mcg (2,000 unit) capsule finasteride 5 mg tablet (Proscar) 5 mg PO QAM 12/04/21 09/20/22 History pantoprazole 40 mg tablet,delayed 40 mg PO 3XWK 12/04/21 09/20/22 History release tamsulosin 0.4 mg capsule (Flomax) 0.4 mg PO QPM 12/04/21 09/20/22 History cyanocobalamin (vitamin B-12) 1,000 mcg PO DAILY 01/21/22 09/20/22 History 1,000 mcg tablet (Vitamin B-12) lisinopril 2.5 mg tablet 2.5 mg PO DAILY 07/25/22 09/20/22 History psyllium husk 3.4 gram/5.4 gram 1 tbsp PO DAILY 07/25/22 09/20/22 History oral powder (Metamucil) Patient History Medical History Acute dehydration BPH w urinary obs/LUTS Dementia Diverticulosis of large intestine without perforation or abscess without bleeding Dysarthria and anarthria Dysphagia Dysphonia Hearing deficit [place] left History of basal cell carcinoma History of blood clots superficial - LLE - 2 years ago, RLE - approx 1 year ago? History of SCC (squamous cell carcinoma) of skin Hyperlipidemia Hypertension 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 stage III Irregular heart rhythm follows w/ Dr. Gayle Lab test negative for COVID-19 virus Muscle spasm of back Other abnormalities of gait and mobility Parkinson disease Poor historian Resides in halfway facility current resident of [facility] Sepsis Weakness Weakness Surgical History History of colonoscopy History of eye surgery Rt eye History of knee surgery Rt Status post Mohs surgery Family History Other Adopted Social History Smoking Status: Former smoker Second Hand Exposure: No; Do You Dip or Chew Tobacco: No; Hx Alcohol Use: Yes Alcohol type: beer, wine and hard liquor Alcohol Intake Frequency: Monthly or Less Hx Substance Use: No Preferred Language: Romanian Communication Ability: Effective Hosted Services Analyst Required: No Beliefs That Will Affect Care: None marital status: Current Living Situation: Spouse and Personal Care Facility Current Living Situation Comment: [facility]. current occupational status: retired Other Information That Helps Us Care for You: No Feels Safe at Home: Yes Safety Concerns: Feels Safe At This Time Assistive Devices: Cane, Glasses and Walker Review of Systems Review of Systems: Denies any chest pain, SOB, Dyspnea, abdominal pain, nausea, vomiting, fever or chills. Physical Exam Physical Exam: Resting comfortably Abdomen soft, nontender, no CVA tenderness No suprapubic tenderness Garcia catheter in place and draining predominantly clear urine with some sediment and debris Minimal lower extremity edema Results & Data Vital Signs (Past 12 Hours) Vital Signs Temp Pulse Pulse Resp BP Pulse Ox O2 Del Method 09/21/22 08:04 36.7 C 113 H 20 130/80 97 Room Air 09/21/22 07:28 108 H 09/21/22 04:00 36.6 C 65 20 129/77 95 Room Air 09/21/22 00:00 36.3 C L 70 20 137/82 99 Room Air PG Care Time/CCT Total # of Minutes Spent Total Time Spent with Patient: Total time spent is greater than 50% in coordination of care (as documented) at patient's floor/unit and/or counseling patient: Coding Level of Care Code 87899 INT INP/OBS CARE 2/55MIN Diagnoses Acute UTI (urinary tract infection) N39.0
--- NOTE | 2022-09-21 13:40 | Hospitalist Progress Note ---
Date of Service September 21, 2022 Assessment & Plan (1) Acute UTI (urinary tract infection): Plan: -Patient has a hx of recurrent uti on account of urinary retention from BPH -Presents with weakness and found to have UTI -Continue Cefepime for now until urine and blood cultures result -Urology on consult, continue thurston catheter (2) Generalized weakness: Plan: -Started to develop generalized weakness/lethargy yesterday, worse today -Appears to have another recurrent UTI, negative CVA tenderness on exam -CT of the head was negative for acute changes, CXR negative for acute changes, no focal neuro defects -S/P one dose of Cefepime and 500 mL NSS in the ED -Will continue on Cefepime for now as he frequently grows pseudomonas and klebsiella -Follow blood and urine cultures -PT/OT (3) BPH w urinary obs/LUTS: Plan: -Continue thurston cath - placed for urinary retention in the ER. Consult urology given ongoing intermittent urine retention leading to UTIs. -Continue flomax and finasteride -Urology on consult (4) Superficial thrombophlebitis: Plan: -Continue Eliquis (5) Parkinson disease: Plan: -Continue Carbidopa-Levodopa; (6) Hypertension: Plan: -Stable -Continue amlodipine and lisinopril Plan contiue hospitalization, hopefully d/c in the next 24-48 hrs Admission and Anticipated Discharge Date Admission Date: September 20, 2022 Subjective patient seen and examined, feels better, thurston is in situ, draining cloudy urine Review of Systems Review of Systems: All systems reviewed are negative, apart from the ones contained in the history. Physical Exam Physical Exam: The patient is awake, alert and oriented 3, well developed and well nourished, normocephalic and atraumatic, lying in bed and in no acute distress. HEENT--PERRL, EOMI, mucous membranes and oropharynx mildly dry Neck--supple. No JVD. No bruits. Thyroid normal, trachea midline, no adenopathy. Heart--normal S1 and S2. No murmurs, rubs or gallops. Lungs--clear bilaterally, no respiratory distress, no accessory muscle use. Abdomen--normal bowel sounds and soft. Extremities--no cyanosis or clubbing. No edema. Dermatologic--normal skin turgor, normal color, no abnormal lymph nodes, no rash. Neurologic--cranial nerves II through XII grossly intact. mild tremors at rest Rheumatologic--normal range of motion. Psychiatric--normal affect. Results & Data Results & Data Vital Signs (Past 12 Hours) Vital Signs Temp Pulse Pulse Resp BP Pulse Ox O2 Del Method 09/21/22 11:26 97.2 F L 110 H 20 113/73 96 Room Air 09/21/22 08:04 98.1 F 113 H 20 130/80 97 Room Air 09/21/22 07:28 108 H 09/21/22 04:00 97.9 F 65 20 129/77 95 Room Air PG Care Time/CCT Total # of Minutes Spent Total Time Spent with Patient: Total time spent is greater than 50% in coordination of care (as documented) at patient's floor/unit and/or counseling patient: Coding Level of Care Code 38743 SUB INP/OBS CARE 2/35MIN Diagnoses Acute UTI (urinary tract infection) N39.0 Generalized weakness R53.1 BPH w urinary obs/LUTS N40.1; N13.8 Superficial thrombophlebitis I80.9 Parkinson disease G20 Hypertension I10 Time Spent (min) 35
[2022-09-21] MEDS: TAMSULOSIN HCL 0.4 MG CAP PO SCH (21:13)
[2022-09-22] MEDS: CEFEPIME 2,000 MG in SYRINGE 0 ML IV SCH ×2 (01:38→13:11)
[2022-09-22 06:07] LABS: Basophils # (auto) 0.03 K/uL (0-0.2); Basophils % (auto) 0.5 %; Eosinophils % (auto) 3.2 %; Hematocrit (blood only) 39.8 % (42.0-52.0); Hemoglobin 13.8 g/dl (14.0-18.0); Immature Granulocytes # (auto) 0.06 K/uL (0.01-0.20); Lymphocytes # (auto) 0.77 K/uL (1.2-3.4); Lymphocytes % (auto) 12.2 %; Mean Corpuscular Hgb Conc 34.7 g/dL (32.0-36.0); Mean Corpuscular Volume 92.3 fL (80.0-100.0); Mean Platelet Volume 10.9 fL (9.4-12.4); Monocytes # (auto) 0.97 K/uL (0.11-0.59); Monocytes % (auto) 15.4 %; Neutrophils # (auto) 4.26 K/uL (1.40-6.50); Neutrophils % (auto) 67.7 %; Platelet Count 171 K/uL (130-400); RDW Standard Deviation 44.4 fL (36.4-46.3); Red Blood Count 4.31 M/uL (4.70-6.10); White Blood Count 6.29 K/ul (4.8-10.8)
[2022-09-22 06:19] LABS: BUN Creatinine Ratio 22.4 (10-20); Calcium 9.4 mg/dl (8.6-10.3); Creatinine Clr Calc Pharmacy 41.9 ml/min; Est GFR (African American) 65.3 ml/min; Est GFR (Non-African American) 56.3 ml/min; Potassium 4.4 mmol/L (3.5-5.1)
[2022-09-22] MEDS: amLODIPine BESYLATE 5 MG TAB PO SCH (09:46)
[2022-09-22] MEDS: ASPIRIN 81 MG ECTAB PO SCH (09:47)
[2022-09-22] MEDS: FINASTERIDE 5 MG TAB PO SCH (09:47)
[2022-09-22] MEDS: CARBIDOPA/LEVODOPA 25/100MG TAB PO SCH ×3 (09:47→20:26)
[2022-09-22] MEDS: APIXABAN 2.5 MG TAB PO SCH ×2 (09:47→20:26)
[2022-09-22] MEDS: lisinopril 2.5 MG TAB PO SCH (09:47)
--- NOTE | 2022-09-22 12:00 | Urology Progress Note ---
Date of Service September 22, 2022 Assessment & Plan (1) Acute UTI (urinary tract infection): Plan: Gram-positive cocci and staph in his urine Final speciation still pending Continue antibiotics Continue Garcia catheter Once speciated, we can determine a plan for the Garcia and ultimately discharged home Admission and Anticipated Discharge Date Admission Date: September 20, [address]antib[address] administered Feeling much better now No subjective complaints overnight Borderline tachycardic Physical Exam Physical Exam: Clear urine from his catheter Less debris today Abdomen soft Hemodynamically stable Results & Data Vital Signs (Past 12 Hours) Vital Signs Temp Pulse Pulse Resp BP Pulse Ox O2 Del Method 09/22/22 07:35 36.7 C 88 18 121/82 96 Room Air 09/22/22 07:38 104 H 09/22/22 05:10 36.2 C L 69 20 107/61 97 Room Air PG Care Time/CCT Total # of Minutes Spent Total Time Spent with Patient: Total time spent is greater than 50% in coordination of care (as documented) at patient's floor/unit and/or counseling patient: Coding Level of Care Code 36359 SUB INP/OBS CARE 2/35MIN Diagnoses Acute UTI (urinary tract infection) N39.0
--- NOTE | 2022-09-22 12:26 | Hospitalist Progress Note ---
Date of Service September 22, 2022 Assessment & Plan (1) Acute UTI (urinary tract infection): Plan: -Patient has a hx of recurrent uti on account of urinary retention from BPH -Presents with weakness and found to have UTI Cultures growing gram positives, full characterization pending -Continue Cefepime for now -Urology on consult, continue thurston catheter (2) Generalized weakness: Plan: -Started to develop generalized weakness/lethargy yesterday, worse today -Appears to have another recurrent UTI, negative CVA tenderness on exam -CT of the head was negative for acute changes, CXR negative for acute changes, no focal neuro defects -S/P one dose of Cefepime and 500 mL NSS in the ED -Will continue on Cefepime for now -Follow blood and urine cultures -PT/OT (3) BPH w urinary obs/LUTS: Plan: -Continue thurston cath - placed for urinary retention in the ER. Consult urology given ongoing intermittent urine retention leading to UTIs. -Continue flomax and finasteride -Urology on consult, appreciate direction on thurston management (4) Superficial thrombophlebitis: Plan: -Continue Eliquis (5) Parkinson disease: Plan: -Continue Carbidopa-Levodopa; (6) Hypertension: Plan: -Stable -Continue amlodipine and lisinopril Plan contiue hospitalization, hopefully d/c in the next 24-48 hrs Admission and Anticipated Discharge Date Admission Date: September 20, 2022 Subjective patient seen and examined, feels better overall Review of Systems Review of Systems: All systems reviewed are negative, apart from the ones contained in the history. Physical Exam Physical Exam: The patient is awake, alert and oriented 3, well developed and well nourished, normocephalic and atraumatic, lying in bed and in no acute distress. HEENT--PERRL, EOMI, mucous membranes and oropharynx mildly dry Neck--supple. No JVD. No bruits. Thyroid normal, trachea midline, no adenopathy. Heart--normal S1 and S2. No murmurs, rubs or gallops. Lungs--clear bilaterally, no respiratory distress, no accessory muscle use. Abdomen--normal bowel sounds and soft. Extremities--no cyanosis or clubbing. No edema. Dermatologic--normal skin turgor, normal color, no abnormal lymph nodes, no rash. Neurologic--cranial nerves II through XII grossly intact. mild tremors at rest Rheumatologic--normal range of motion. Psychiatric--normal affect. Results & Data Results & Data Vital Signs (Past 12 Hours) Vital Signs Temp Pulse Pulse Resp BP Pulse Ox O2 Del Method 09/22/22 07:35 98.1 F 88 18 121/82 96 Room Air 09/22/22 07:38 104 H 09/22/22 05:10 97.2 F L 69 20 107/61 97 Room Air PG Care Time/CCT Total # of Minutes Spent Total Time Spent with Patient: Total time spent is greater than 50% in coordination of care (as documented) at patient's floor/unit and/or counseling patient: Coding Level of Care Code 40385 SUB INP/OBS CARE 2/35MIN Diagnoses Acute UTI (urinary tract infection) N39.0 Generalized weakness R53.1 BPH w urinary obs/LUTS N40.1; N13.8 Superficial thrombophlebitis I80.9 Parkinson disease G20 Hypertension I10 Time Spent (min) 35
[2022-09-22] MEDS: TAMSULOSIN HCL 0.4 MG CAP PO SCH (20:26)
[2022-09-23] MEDS: CEFEPIME 2,000 MG in SYRINGE 0 ML IV SCH (01:28)
[2022-09-23 08:06] LABS: Basophils # (auto) 0.02 K/uL (0-0.2); Basophils % (auto) 0.2 %; Eosinophils # (auto) 0.21 K/uL (0-0.50); Eosinophils % (auto) 2.5 %; Hematocrit (blood only) 39.4 % (42.0-52.0); Hemoglobin 13.6 g/dl (14.0-18.0); Immature Granulocytes # (auto) 0.06 K/uL (0.01-0.20); Immature Granulocytes % (auto) 0.7 %; Lymphocytes # (auto) 0.74 K/uL (1.2-3.4); Lymphocytes % (auto) 8.9 %; Mean Corpuscular Hemoglobin 31.5 pg (25.0-34.0); Mean Corpuscular Hgb Conc 34.5 g/dL (32.0-36.0); Mean Corpuscular Volume 91.2 fL (80.0-100.0); Mean Platelet Volume 10.4 fL (9.4-12.4); Monocytes # (auto) 1.05 K/uL (0.11-0.59); Monocytes % (auto) 12.6 %; Neutrophils # (auto) 6.27 K/uL (1.40-6.50); Neutrophils % (auto) 75.1 %; Platelet Count 179 K/uL (130-400); RDW Coefficient of Variation 13.2 % (11.5-14.5); RDW Standard Deviation 43.8 fL (36.4-46.3); Red Blood Count 4.32 M/uL (4.70-6.10); White Blood Count 8.35 K/ul (4.8-10.8)
[2022-09-23 08:22] LABS: Calcium 9.6 mg/dl (8.6-10.3); Est GFR (African American) 52.4 ml/min; Est GFR (Non-African American) 45.2 ml/min; Potassium 4.3 mmol/L (3.5-5.1)
[2022-09-23] MEDS: CARBIDOPA/LEVODOPA 25/100MG TAB PO SCH ×3 (09:47→20:21)
[2022-09-23] MEDS: APIXABAN 2.5 MG TAB PO SCH ×2 (09:47→20:21)
[2022-09-23] MEDS: PANTOprazole 40 MG TAB PO SCH (09:48)
[2022-09-23] MEDS: lisinopril 2.5 MG TAB PO SCH (09:48)
[2022-09-23] MEDS: ASPIRIN 81 MG ECTAB PO SCH (09:48)
[2022-09-23] MEDS: amLODIPine BESYLATE 5 MG TAB PO SCH (09:48)
[2022-09-23] MEDS: FINASTERIDE 5 MG TAB PO SCH (09:49)
[2022-09-23] MEDS: DAPTOmycin 550 MG in SYRINGE 0 ML IV SCH (11:33)
--- NOTE | 2022-09-23 11:51 | Hospitalist Progress Note ---
Date of Service September 23, 2022 Assessment & Plan (1) Acute UTI (urinary tract infection): Plan: -Patient has a hx of recurrent uti on account of urinary retention from BPH -Presents with weakness and found to have UTI Cultures growing VRE -Switch to daptomycin -Urology on consult, continue thurston catheter (2) Generalized weakness: Plan: -Likely secondary to UTI -CT of the head was negative for acute changes, CXR negative for acute changes, no focal neuro defects some improvement following treatment of UTI -PT/OT (3) BPH w urinary obs/LUTS: Plan: -Continue thurston cath - placed for urinary retention in the ER. Consult urology given ongoing intermittent urine retention leading to UTIs. -Continue flomax and finasteride -Urology on consult, appreciate direction on thurston management (4) Superficial thrombophlebitis: Plan: -Continue Eliquis (5) Parkinson disease: Plan: -Continue Carbidopa-Levodopa; (6) Hypertension: Plan: -Stable -Continue amlodipine and lisinopril Plan contiue hospitalization, hopefully d/c in the next 24-48 hrs Admission and Anticipated Discharge Date Admission Date: September 20, 2022 Subjective patient seen and examined, feels better overall Review of Systems Review of Systems: All systems reviewed are negative, apart from the ones contained in the history. Physical Exam Physical Exam: The patient is awake, alert and oriented 3, well developed and well nourished, normocephalic and atraumatic, lying in bed and in no acute distress. HEENT--PERRL, EOMI, mucous membranes and oropharynx mildly dry Neck--supple. No JVD. No bruits. Thyroid normal, trachea midline, no adenopathy. Heart--normal S1 and S2. No murmurs, rubs or gallops. Lungs--clear bilaterally, no respiratory distress, no accessory muscle use. Abdomen--normal bowel sounds and soft. Extremities--no cyanosis or clubbing. No edema. Dermatologic--normal skin turgor, normal color, no abnormal lymph nodes, no rash. Neurologic--cranial nerves II through XII grossly intact. mild tremors at rest Rheumatologic--normal range of motion. Psychiatric--normal affect. Results & Data Results & Data Vital Signs (Past 12 Hours) Vital Signs Temp Pulse Pulse Resp BP Pulse Ox O2 Del Method 09/23/22 07:52 97.7 F 69 16 119/78 100 Room Air 09/23/22 03:43 96.3 F L 62 18 109/66 99 Room Air PG Care Time/CCT Total # of Minutes Spent Total Time Spent with Patient: Total time spent is greater than 50% in coordination of care (as documented) at patient's floor/unit and/or counseling patient: Coding Level of Care Code 64175 SUB INP/OBS CARE 2/35MIN Diagnoses Acute UTI (urinary tract infection) N39.0 Generalized weakness R53.1 BPH w urinary obs/LUTS N40.1; N13.8 Superficial thrombophlebitis I80.9 Parkinson disease G20 Hypertension I10 Time Spent (min) 35
--- NOTE | 2022-09-23 12:24 | Electrocardiogram Report ---
Test Reason : Blood Pressure : / mmHG Vent. Rate : 117 BPM Atrial Rate : 117 BPM P-R Int : 196 ms QRS Dur : 076 ms QT Int : 316 ms P-R-T Axes : 018 -12 017 degrees QTc Int : 440 ms Poor data quality, interpretation may be adversely affected Sinus tachycardia Possible Left atrial enlargement Low voltage QRS Borderline ECG When compared with ECG of 20-SEP-2022 13:40, Nonspecific T wave abnormality, improved in Inferior leads Confirmed by Sundeep Roberts ([id number]) on 09/23/2022 12:24:00 PM Referred By: Doyle Pimentel Confirmed By:Sundeep Roberts
[2022-09-23] MEDS: SODIUM CHLORIDE 0.9% 1000ML 1,000 ML IV SCH (16:19)
[2022-09-23] MEDS: TAMSULOSIN HCL 0.4 MG CAP PO SCH (20:21)
[2022-09-24] MEDS: SODIUM CHLORIDE 0.9% 1000ML 1,000 ML IV SCH ×3 (02:11→15:00)
--- NOTE | 2022-09-24 08:11 | Urology Progress Note ---
Date of Service September 24, 2022 Assessment & Plan (1) Acute UTI (urinary tract infection): Plan: Follow-up of urinary retention, acute UTI Afebrile with stable vitals Confused this am, though this was my first meeting with him Urine culture grew out Enterococcus VRE and Coag neg staph Blood cultures no growth x 48 hours Cefepime changed to Daptomycin per sensitivities Continue antibiotics and supportive care Maintain Garcia for appropriate source control Patient likely needs to keep catheter mcfp with monthly changes due to retention Will arrange outpatient f/u with urology will follow peripherally Admission and Anticipated Discharge Date Admission Date: September 20, 2022 Subjective Patient seen and examined at bedside this morning. He is awake and resting in bed without a gown and covers this am. Garcia patent and draining yellow urine with some bloody sediment in tubing which is pinking urine intermittently. Per nursing, he has removed the stat lock from Garcia and has been pulling catheter at times. He denies pain. Denies nausea, vomiting, fever or chills. Review of Systems Review of Systems: Unobtainable due to cognitive status Physical Exam Constitutional: no acute distress Respiratory: no respiratory distress Cardiovascular: Extremities: no pedal edema Gastrointestinal (Abdomen): Percussion/Palpation: abdomen soft; abdomen nontender Musculoskeletal: Head/Neck/Chest: normocephalic Neurologic: awake and + confused Psychiatric: Orientation: oriented to person Genitourinary: Garcia patent and draining yellow urine with some bloody sediment in tubing which is pinking urine intermittently. Results & Data Vital Signs (Past 12 Hours) Vital Signs Temp Pulse Pulse Resp BP Pulse Ox O2 Del Method 09/24/22 07:48 37.3 C 83 16 129/70 91 Room Air 09/23/22 22:13 82 09/24/22 03:05 36.3 C L 62 18 104/60 97 Room Air 09/23/22 23:34 36.5 C 66 16 104/52 L 98 Room Air PG Care Time/CCT Total # of Minutes Spent Total Time Spent with Patient: Total time spent is greater than 50% in coordination of care (as documented) at patient's floor/unit and/or counseling patient: Coding Level of Care Code 41527 SUB INP/OBS CARE 1/25MIN Diagnoses Acute UTI (urinary tract infection) N39.0
[2022-09-24 08:58] LABS: Hematocrit (blood only) 39.2 % (42.0-52.0); Hemoglobin 13.4 g/dl (14.0-18.0); Mean Corpuscular Hemoglobin 31.5 pg (25.0-34.0); Mean Corpuscular Hgb Conc 34.2 g/dL (32.0-36.0); Mean Corpuscular Volume 92.2 fL (80.0-100.0); Mean Platelet Volume 10.8 fL (9.4-12.4); Platelet Count 158 K/uL (130-400); RDW Coefficient of Variation 13.1 % (11.5-14.5); Red Blood Count 4.25 M/uL (4.70-6.10); White Blood Count 6.69 K/ul (4.8-10.8)
[2022-09-24 09:22] LABS: BUN Creatinine Ratio 25.4 (10-20); Calcium 9.6 mg/dl (8.6-10.3); Creatinine Clr Calc Pharmacy 39.9 ml/min; Est GFR (African American) 61.4 ml/min; Potassium 4.1 mmol/L (3.5-5.1)
[2022-09-24] MEDS: CARBIDOPA/LEVODOPA 25/100MG TAB PO SCH ×3 (09:44→22:17)
[2022-09-24] MEDS: APIXABAN 2.5 MG TAB PO SCH ×2 (09:44→22:16)
[2022-09-24] MEDS: amLODIPine BESYLATE 5 MG TAB PO SCH (09:44)
[2022-09-24] MEDS: ASPIRIN 81 MG ECTAB PO SCH (09:45)
[2022-09-24] MEDS: DAPTOmycin 550 MG in SYRINGE 0 ML IV SCH (09:46)
[2022-09-24] MEDS: FINASTERIDE 5 MG TAB PO SCH (09:46)
[2022-09-24] MEDS: lisinopril 2.5 MG TAB PO SCH (09:46)
--- NOTE | 2022-09-24 10:48 | Hospitalist Progress Note ---
Date of Service September 24, 2022 Assessment & Plan (1) Acute UTI (urinary tract infection): Plan: -Patient has a hx of recurrent uti on account of urinary retention from BPH -Presents with weakness and found to have UTI Cultures growing VRE -Switch to daptomycin -Urology on consult, continue thurston catheter -Consult ID for recommendations regarding antibiotics (2) Generalized weakness: Plan: -Likely secondary to UTI -CT of the head was negative for acute changes, CXR negative for acute changes, no focal neuro defects some improvement following treatment of UTI -PT/OT (3) BPH w urinary obs/LUTS: Plan: -Continue thurston cath - placed for urinary retention in the ER. Consult urology given ongoing intermittent urine retention leading to UTIs. -Continue flomax and finasteride -Urology on consult, -Per urology, will maintain thurston and have him follow up outpatient (4) Superficial thrombophlebitis: Plan: -Continue Eliquis (5) Parkinson disease: Plan: -Continue Carbidopa-Levodopa; (6) Hypertension: Plan: -Stable -Continue amlodipine and lisinopril Plan Hopefully discharge when we have ID recs regarding type, duration of antibiotics Admission and Anticipated Discharge Date Admission Date: September 20, 2022 Subjective patient seen and examined, says he feels better over all Review of Systems Review of Systems: All systems reviewed are negative, apart from the ones contained in the history. Physical Exam Physical Exam: The patient is awake, alert and oriented 3, well developed and well nourished, normocephalic and atraumatic, lying in bed and in no acute distress. HEENT--PERRL, EOMI, mucous membranes and oropharynx mildly dry Neck--supple. No JVD. No bruits. Thyroid normal, trachea midline, no adenopathy. Heart--normal S1 and S2. No murmurs, rubs or gallops. Lungs--clear bilaterally, no respiratory distress, no accessory muscle use. Abdomen--normal bowel sounds and soft. Extremities--no cyanosis or clubbing. No edema. Dermatologic--normal skin turgor, normal color, no abnormal lymph nodes, no rash. Neurologic--cranial nerves II through XII grossly intact. mild tremors at rest Rheumatologic--normal range of motion. Psychiatric--normal affect. Results & Data Results & Data Vital Signs (Past 12 Hours) Vital Signs Temp Pulse Pulse Resp BP Pulse Ox O2 Del Method 09/24/22 08:00 91 H 09/24/22 07:48 99.1 F 83 16 129/70 91 Room Air 09/24/22 03:05 97.3 F L 62 18 104/60 97 Room Air 09/23/22 23:34 97.7 F 66 16 104/52 L 98 Room Air PG Care Time/CCT Total # of Minutes Spent Total Time Spent with Patient: Total time spent is greater than 50% in coordination of care (as documented) at patient's floor/unit and/or counseling patient: Coding Level of Care Code 05800 SUB INP/OBS CARE 2/35MIN Diagnoses Acute UTI (urinary tract infection) N39.0 Generalized weakness R53.1 BPH w urinary obs/LUTS N40.1; N13.8 Superficial thrombophlebitis I80.9 Parkinson disease G20 Hypertension I10 Time Spent (min) 35
[2022-09-24] MEDS ORDERED: LORazepam 2 MG/1 ML VIAL ONE (11:27)
[2022-09-24] MEDS ORDERED: LORazepam 2 MG/1 ML VIAL IV STA (11:33)
[2022-09-24] MEDS ORDERED: ACETAMINOPHEN 1,000 MG/100 ML VIAL IV STA (11:33)
[2022-09-24] MEDS ORDERED: ACETAMINOPHEN 1000 MG/100 ML IV IV ONE (11:37)
--- NOTE | 2022-09-24 12:20 | XRay Report ---
XR chest 1V portable CLINICAL HISTORY: Shortness of breath. COMPARISON STUDY: Chest radiograph September 20, 2022. FINDINGS: Patient is rotated. No pneumothorax or pleural effusion is present. Cardiomediastinal silho uette is stable. There is no consolidation to suggest pneumonia. Subtle interstitial thickening is li elsa chronic. There are old left rib fractures. IMPRESSION: No acute cardiopulmonary findings. No significant change in appearance of the chest. ACT 112: Negative or not required by law. Electronically signed by: Ez Merino M.D. 09/24/2022 12:19 PM
[2022-09-24] MEDS ORDERED: SODIUM CHLORIDE 0.9% 1000ML 1,000 ML IV ONE (12:46)
[2022-09-24] MEDS ORDERED: ACETAMINOPHEN 1,000 MG/100 ML VIAL IV PRN (14:40)
--- NOTE | 2022-09-24 17:41 | Infectious Disease Consult ---
Date of Consultation September 24, 2022 Assessment & Plan (1) Generalized weakness: (2) Acute UTI (urinary tract infection): Plan This is an 87 year old male with pmh ofBPH , recurrent UTI's, HTN, CKD, Parkinson's disease with dementia, and superficial phlebitis on Eliquis who presents with weakness and lethargy.He is lethargic on my exam and can not provide a history. History obtained by chart review. His is at bedside and provides some information. She brought him in for evaluation of progressive weakness that she feels he gets with UTI. He did not complain of change in urine, fever, chills, sats, abdominal pain, nausea, vomiting, cough. He has no rash or wounds on exam. On admission,he is afebrile. HR 110-113, BP 130/85, o2 sats 99% RA , RR 16. Labs noted for wbc 8.68, H/H 13.4/40.4, BUN 37, cr1.24. UA with > 30 WBC. Cxr with no acute process. CT head with out acute intracranial process. A thurston was placed in the ED. He was started Cefepime. UC grew VRE and CONS. BC are sterile to date. His antibiotics were changed to Daptomycin. His hospital course was c/b new fevers that started 09/24 with rigors Tmax 38.9. Repeat BC obtained. ID consulted for recurrent UTIs. Micro BC 09/20 NGTD BC 09/24 pending UC 09/20 VRE and CONS Abx Dapto 09/20- ongoing Cefepime 09/20-09/23 1. Urine retention,thurston in place 2. VRE and CONS UTI 3. history of recurrent UTI 4. Fever/rigors on 09/24, unknown etiology, no localizing symptoms currently on exam 5. Parkinsons disease Recommendations: -Continue Daptomycin for now -Follow up BC from 09/24 - Monitor fever curve Thank you for this consultation. ID will continue to follow. Sofiya yL MD, MPH Infectious Disease [facility] Call [phone] with questions Consultation Information Consultation was provided via telemedicine using two-way real-time interactive telecommunication between the patient and the telemedicine provider. For the duration of the visit, the provider was performing the assessment from a different facility than the patient. This includesuse of bluetooth stethoscope forauscultationperformed by the telepresenter that the telemedicine provider can hear if described in the physical exam. Paper Cup Machine Operator contact information: Please call [facility] Center . (Phone Number For Physician Use Only) After establishing a telemedicine visit, patient was: Patient was verified with two unique identifiers and Patient/authorized rep acknowledged consent and understanding Time Spent with Patient: Initial => 75 min History of Present Illness Reason for Consultation: Recurrent Uti Requesting Physician: Blake Wolf MD Attending Physician: Blake Wolf MD History of Present Illness This is an 87 year old male with pmh ofBPH , recurrent UTI's, HTN, CKD, Parkinson's disease with dementia, and superficial phlebitis on Eliquis who presents with weakness and lethargy.He is lethargic on my exam and can not provide a history. History obtained by chart review. His is at bedside and provides some information. She brought him in for evaluation of progressive weakness that she feels he gets with UTI. He did not complain of change in urine, fever, chills, sats, abdominal pain, nausea, vomiting, cough. He has no rash or wounds on exam. On admission,he is afebrile. HR 110-113, BP 130/85, o2 sats 99% RA , RR 16. Labs noted for wbc 8.68, H/H 13.4/40.4, BUN 37, cr1.24. UA with > 30 WBC. Cxr with no acute process. CT head with out acute intracranial process. A thurston was placed in the ED. He was started Cefepime. UC grew VRE and CONS. BC are sterile to date. His antibiotics were changed to Daptomycin. His hospital course was c/b new fevers that started 09/24 with rigors Tmax 38.9. Repeat BC obtained. ID consulted for recurrent UTIs. Allergies Allergy/AdvReac Type Severity Reaction Status Date / Time No Known Allergies Allergy Verified 06/20/22 09:01 Home Medications Medication Instructions Recorded Confirmed Type amlodipine 2.5 mg tablet 2.5 mg PO QAM 12/04/21 09/20/22 History apixaban 2.5 mg tablet (Eliquis) 2.5 mg PO BID 12/04/21 09/20/22 History aspirin 81 mg capsule 81 mg PO QAM 12/04/21 09/20/22 History carbidopa 25 mg-levodopa 100 mg 1 tab PO TID 12/04/21 09/20/22 History tablet (Sinemet) cholecalciferol (vitamin D3) 50 50 mcg PO DAILY 12/04/21 09/20/22 History mcg (2,000 unit) capsule finasteride 5 mg tablet (Proscar) 5 mg PO QAM 12/04/21 09/20/22 History pantoprazole 40 mg tablet,delayed 40 mg PO 3XWK 12/04/21 09/20/22 History release tamsulosin 0.4 mg capsule (Flomax) 0.4 mg PO QPM 12/04/21 09/20/22 History cyanocobalamin (vitamin B-12) 1,000 mcg PO DAILY 01/21/22 09/20/22 History 1,000 mcg tablet (Vitamin B-12) lisinopril 2.5 mg tablet 2.5 mg PO DAILY 07/25/22 09/20/22 History psyllium husk 3.4 gram/5.4 gram 1 tbsp PO DAILY 07/25/22 09/20/22 History oral powder (Metamucil) Patient History Medical History Acute dehydration BPH w urinary obs/LUTS Dementia Diverticulosis of large intestine without perforation or abscess without bleeding Dysarthria and anarthria Dysphagia Dysphonia Hearing deficit LAC COURTE OREILLES left History of basal cell carcinoma History of blood clots superficial - LLE - 2 years ago, RLE - approx 1 year ago? History of SCC (squamous cell carcinoma) of skin Hyperlipidemia Hypertension 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 stage III Irregular heart rhythm follows w/ Dr. Gayle Lab test negative for COVID-19 virus Muscle spasm of back Other abnormalities of gait and mobility Parkinson disease Poor historian Resides in intermediate facility current resident of [facility] Weakness Weakness Surgical History History of colonoscopy History of eye surgery Rt eye History of knee surgery Rt Status post Mohs surgery Family History Other Adopted Social History Smoking Status: Former smoker Second Hand Exposure: No; Do You Dip or Chew Tobacco: No; Hx Alcohol Use: Yes Alcohol type: beer, wine and hard liquor Alcohol Intake Frequency: Monthly or Less Hx Substance Use: No Preferred Language: Honduran Communication Ability: Effective Heat And Vent Aircraft Mechanic Required: No Beliefs That Will Affect Care: None marital status: Current Living Situation: Spouse and Personal Care Facility Current Living Situation Comment: [facility]. current occupational status: retired Other Information That Helps Us Care for You: No Feels Safe at Home: Yes Safety Concerns: Feels Safe At This Time Assistive Devices: Cane and Walker Review of System unable to obtain 2/2 mental status Physical Exam Physical Exam: Constitutional: lethargic, arousable but confused , Eyes: Anicteric sclera Neck: Supple Respiratory: No increased Work of breathing Gastrointestinal (Abdomen): soft , not tender, not distended Skin: No rash or wounds Neurologic: Lethargic Genitourinary: Thurston with dark urine. No CVA tenderness Results & Data Vital Signs (Past 12 Hours) Vital Signs Temp Pulse Pulse Resp BP BP BP 09/24/22 17:35 37.1 C 80 17 111/67 09/24/22 16:39 80 09/24/22 16:39 09/24/22 15:02 36.5 C 69 18 96/57 L 09/24/22 09:00 09/24/22 13:47 36.8 C 73 20 112/64 09/24/22 13:05 25 H 100/54 L 09/24/22 12:57 38.1 C H 09/24/22 12:55 92 H 28 H 75/47 L 09/24/22 12:40 38.6 C H 80 28 H 69/46 L 09/24/22 12:24 38.9 C H 84 36 H 94/54 L 09/24/22 12:20 93/61 L 09/24/22 12:14 38.9 C H 96 H 36 H 79/49 L 09/24/22 11:30 38.8 C H 120 H 44 H 225/80 H 09/24/22 11:00 37.1 C 83 18 118/70 09/24/22 08:00 91 H 09/24/22 07:48 37.3 C 83 16 129/70 Pulse Ox O2 Del Method O2 Flow Rate 09/24/22 17:35 98 Nasal Cannula 09/24/22 16:39 09/24/22 16:39 Oxymask 2 09/24/22 15:02 97 Oxymask 3 09/24/22 09:00 Room Air 09/24/22 13:47 99 Nasal Cannula 2 09/24/22 13:05 09/24/22 12:57 09/24/22 12:55 100 Oxymask 4 09/24/22 12:40 99 Oxymask 4 09/24/22 12:24 93 Room Air 09/24/22 12:20 09/24/22 12:14 95 Nasal Cannula 2 09/24/22 11:30 95 Room Air 09/24/22 11:00 92 Room Air 09/24/22 08:00 09/24/22 07:48 91 Room Air Laboratory Results Laboratory Results - last 48 hr 09/23/22 09/23/22 09/24/22 07:48 07:48 08:32 WBC 8.35 6.69 RBC 4.32 L 4.25 L Hgb 13.6 L 13.4 L Hct 39.4 L 39.2 L MCV 91.2 92.2 MCH 31.5 31.5 MCHC 34.5 34.2 RDW Std Deviation 43.8 44.0 RDW Coeff of Ramy 13.2 13.1 Plt Count 179 158 MPV 10.4 10.8 Immature Gran % (Auto) 0.7 Neut % (Auto) 75.1 Lymph % (Auto) 8.9 [place] % (Auto) 12.6 Eos % (Auto) 2.5 Baso % (Auto) 0.2 Neut # (Auto) 6.27 Lymph # (Auto) 0.74 L [place] # (Auto) 1.05 H Eos # (Auto) 0.21 Baso # (Auto) 0.02 Immature Gran # (Auto) 0.06 Sodium 138 Potassium 4.3 Chloride 107 Carbon Dioxide 25 Anion Gap 6 BUN 32 H Creatinine 1.39 Est Cr Clr Drug Dosing 35.0 Est GFR ( Amer) 52.4 Est GFR (Non-Af Amer) 45.2 BUN/Creatinine Ratio 23.0 H Glucose 95 POC Glucose Lactate Calcium 9.6 09/24/22 09/24/22 09/24/22 08:32 12:24 12:42 WBC RBC Hgb Hct MCV MCH MCHC RDW Std Deviation RDW Coeff of Ramy Plt Count MPV Immature Gran % (Auto) Neut % (Auto) Lymph % (Auto) [place] % (Auto) Eos % (Auto) Baso % (Auto) Neut # (Auto) Lymph # (Auto) [place] # (Auto) Eos # (Auto) Baso # (Auto) Immature Gran # (Auto) Sodium 136 Potassium 4.1 Chloride 107 Carbon Dioxide 23 Anion Gap 6 BUN 31 H Creatinine 1.22 Est Cr Clr Drug Dosing 39.9 Est GFR ( Amer) 61.4 Est GFR (Non-Af Amer) 53.0 BUN/Creatinine Ratio 25.4 H Glucose 134 H POC Glucose 113 H Lactate 1.3 Calcium 9.6 Diagnostic Findings Microbiology 09/20/22 15:55 Urine,Clean Catch Urine Culture - Final Coag negative Staphylococcus Enterococcus faecium VRE 09/20/22 14:48 Blood Aerobic Blood Culture - Preliminary No growth in Aerobic bottle after 48 hours. 09/20/22 14:48 Blood Anaerobic Blood Culture - Preliminary No growth in Anaerobic bottle after 48 hours. 09/20/22 14:05 Blood Aerobic Blood Culture - Preliminary No growth in Aerobic bottle after 48 hours. 09/20/22 14:05 Blood Anaerobic Blood Culture - Preliminary No growth in Anaerobic bottle after 48 hours. Chest X-Ray 09/24/22 11:35 XR chest 1V portable CLINICAL HISTORY: Shortness of breath. COMPARISON STUDY: Chest radiograph September 20, 2022. FINDINGS: Patient is rotated. No pneumothorax or pleural effusion is present. Cardiomediastinal silhouette is stable. There is no consolidation to suggest pneumonia. Subtle interstitial thickening is likely chronic. There are old left rib fractures. IMPRESSION: No acute cardiopulmonary findings. No significant change in appearance of the chest. ACT 112: Negative or not required by law. Electronically signed by: Ez Merino M.D. 09/24/2022 12:19 PM Medications Administered Home Medications Medication Instructions Recorded Confirmed Last Taken amlodipine 2.5 mg tablet 2.5 mg PO QAM 12/04/21 09/20/22 01/29/22 apixaban 2.5 mg tablet (Eliquis) 2.5 mg PO BID 12/04/21 09/20/22 01/29/22 aspirin 81 mg capsule 81 mg PO QAM 12/04/21 09/20/22 01/29/22 carbidopa 25 mg-levodopa 100 mg 1 tab PO TID 12/04/21 09/20/22 01/29/22 tablet (Sinemet) cholecalciferol (vitamin D3) 50 50 mcg PO DAILY 12/04/21 09/20/22 01/29/22 mcg (2,000 unit) capsule finasteride 5 mg tablet (Proscar) 5 mg PO QAM 12/04/21 09/20/22 01/29/22 pantoprazole 40 mg tablet,delayed 40 mg PO 3XWK 12/04/21 09/20/22 09/18/22 release tamsulosin 0.4 mg capsule (Flomax) 0.4 mg PO QPM 12/04/21 09/20/22 01/29/22 cyanocobalamin (vitamin B-12) 1,000 mcg PO DAILY 01/21/22 09/20/22 01/29/22 1,000 mcg tablet (Vitamin B-12) lisinopril 2.5 mg tablet 2.5 mg PO DAILY 07/25/22 09/20/22 Unknown psyllium husk 3.4 gram/5.4 gram 1 tbsp PO DAILY 07/25/22 09/20/22 Unknown oral powder (Metamucil) Active Medications Generic Name Dose Route Start Last Admin Trade Name Freq PRN Reason Stop Dose Admin Amlodipine Besylate 2.5 mg 09/21/22 09:00 09/24/22 09:44 Amlodipine Besylate 5 Mg Tab PO 10/21/22 08:59 2.5 mg QAM CORI Administration Apixaban 2.5 mg 09/20/22 21:00 09/24/22 09:44 Apixaban 2.5 Mg Tab PO 10/20/22 20:59 2.5 mg BID CORI Administration Aspirin 81 mg 09/21/22 09:00 09/24/22 09:45 Aspirin 81 Mg Ectab PO 10/21/22 08:59 81 mg QAM CORI Administration Carbidopa/Levodopa 1 tab 09/21/22 09:00 09/24/22 16:37 Carbidopa/Levodopa 25/100mg Tab PO 10/21/22 08:59 Not Given TID CORI Finasteride 5 mg 09/21/22 09:00 09/24/22 09:46 Finasteride 5 Mg Tab PO 10/21/22 08:59 5 mg QAM CORI Administration Daptomycin 550 mg/ Syringe 11 mls @ 5.5 mls/min 09/23/22 09:00 09/24/22 09:46 IV 10/03/22 08:59 5.5 mls/min Q24H CORI Administration Protocol Sodium Chloride 1,000 mls @ 100 mls/hr 09/23/22 15:30 09/24/22 15:00 Nss 1000ml IV 10/23/22 15:29 100 mls/hr .Q10H CORI Administration Lisinopril 2.5 mg 09/21/22 09:00 09/24/22 09:46 Lisinopril 2.5 Mg Tab PO 10/21/22 08:59 2.5 mg DAILY CORI Administration Pantoprazole Sodium 40 mg 09/23/22 09:00 09/23/22 09:48 Pantoprazole 40 Mg Tab PO 10/23/22 08:59 40 mg [id number] CORI Administration Tamsulosin HCl 0.4 mg 09/20/22 21:00 09/23/22 20:21 Tamsulosin Hcl 0.4 Mg Cap PO 10/20/22 20:59 0.4 mg QPM CORI Administration
[2022-09-24] MEDS: TAMSULOSIN HCL 0.4 MG CAP PO SCH (22:17)
[2022-09-25] MEDS: SODIUM CHLORIDE 0.9% 1000ML 1,000 ML IV SCH ×2 (01:25→13:02)
[2022-09-25] MEDS: ASPIRIN 81 MG ECTAB PO SCH (07:40)
[2022-09-25] MEDS: PANTOprazole 40 MG TAB PO SCH (07:40)
[2022-09-25] MEDS: CARBIDOPA/LEVODOPA 25/100MG TAB PO SCH ×3 (07:40→20:57)
[2022-09-25] MEDS: lisinopril 2.5 MG TAB PO SCH (07:41)
[2022-09-25] MEDS: APIXABAN 2.5 MG TAB PO SCH ×2 (07:41→20:57)
[2022-09-25] MEDS: amLODIPine BESYLATE 5 MG TAB PO SCH (07:41)
[2022-09-25] MEDS: FINASTERIDE 5 MG TAB PO SCH (07:41)
[2022-09-25] MEDS: DAPTOmycin 550 MG in SYRINGE 0 ML IV SCH (07:43)
[2022-09-25 07:57] LABS: Hematocrit (blood only) 37.7 % (42.0-52.0); Hemoglobin 12.5 g/dl (14.0-18.0); Mean Corpuscular Hemoglobin 30.9 pg (25.0-34.0); Mean Corpuscular Hgb Conc 33.2 g/dL (32.0-36.0); Mean Corpuscular Volume 93.1 fL (80.0-100.0); Platelet Count 162 K/uL (130-400); RDW Coefficient of Variation 13.4 % (11.5-14.5); RDW Standard Deviation 45.8 fL (36.4-46.3); Red Blood Count 4.05 M/uL (4.70-6.10); White Blood Count 6.16 K/ul (4.8-10.8)
[2022-09-25 08:13] LABS: BUN Creatinine Ratio 25.8 (10-20); Calcium 9.3 mg/dl (8.6-10.3); Creatinine Clr Calc Pharmacy 50.2 ml/min; Est GFR (Non-African American) 69.9 ml/min; Potassium 4.2 mmol/L (3.5-5.1)
[2022-09-25] MEDS ORDERED: ACETAMINOPHEN 325 MG TAB PO PRN (18:12)
--- NOTE | 2022-09-25 18:12 | Hospitalist Progress Note ---
Date of Service September 25, 2022 Assessment & Plan (1) Acute UTI (urinary tract infection): Plan: With sepsis, likely POA -Patient has a hx of recurrent uti on account of urinary retention from BPH -Presents with weakness and found to have UTI. Spiked high fevers and ta chycardia on 09/24-blood cultures redrawn and remain no growth to date. Blood cultures from 09/20 are negative Cultures growing VRE and coagulase-negative Staphylococcus Initially on cefepime but then changed to daptomycin on 09/23-seems to be improving now -Urology on consult, continue thurston catheter -Consult ID for recommendations regarding antibiotics-agrees with continued daptomycin, follow fever curve, and follow-up blood cultures -DC IV fluids now (2) Generalized weakness: Plan: -Likely secondary to UTI -With acute metabolic encephalopathy secondary to UTI and sepsis -CT of the head was negative for acute changes, CXR negative for acute changes, no focal neuro defects some improvement following treatment of UTI, but reports he is not back to his baseline yet -PT/OT (3) BPH w urinary obs/LUTS: Plan: -Continue thurston cath - placed for urinary retention in the ER. Consult urology given ongoing intermittent urine retention leading to UTIs. -Continue flomax and finasteride -Urology on consult, -Per urology, will maintain thurston and have him follow up outpatient (4) Superficial thrombophlebitis: Plan: -Continue Eliquis (5) Parkinson disease: Plan: -Continue Carbidopa-Levodopa -PT/OT (6) Hypertension: Plan: -Stable -Continue amlodipine and lisinopril (7) Mitral regurgitation: Plan: Very loud murmur heard on examination As per outpatient PCP notes, he has known moderate MR on last echo from 2020, but I do not have record of echo from 2021 -Check echo while here Plan DVT prophylaxis-Eliquis Disposition-remain on PCU, mentation not yet back to baseline. PT/OT recommended SNF- is hesitant but is now agreeable for at least a short-term stay at [facility] Admission and Anticipated Discharge Date Admission Date: September 20, 2022 Subjective Patient feeling a bit better. Still tired. Is eating. Still very weak Telemetry with normal sinus rhythm, PVCs, rates in 70s Physical Exam Constitutional: WD/WN, vitals as above Neck: trachea midline, no thyromegaly Respiratory: normal respiratory effort, lungs clear to auscultation Cardiovascular: Rate/Rhythm: regular rate and regular rhythm Heart Sounds: + murmur (3-4/6 holosystolic murmur heard best at the apex radiating to axilla) Chest (Breasts): Chest: normal inspection of chest Gastrointestinal (Abdomen): normal bowel sounds, soft, nontender, no hepatosplenomegaly Musculoskeletal: Extremities: extremities normal to inspection; no cyanosis a nd no clubbing Skin: no rashes, warm and dry Neurologic: moves all extremities (With rigidity) and awake (But keeps eyes closed); not confused Motor/Sensory: + tremor (Resting tremor in arms) Psychiatric: Orientation: alert, oriented to person, oriented to place and cooperative Results & Data Results & Data Vital Signs (Past 12 Hours) Vital Signs Temp Pulse Pulse Resp BP BP Pulse Ox 09/25/22 16:26 36.3 C L 63 16 111/72 100 09/25/22 16:00 67 09/25/22 12:33 36.3 C L 73 16 122/70 100 09/25/22 08:00 70 09/25/22 07:05 36.8 C 74 148/78 H 98 O2 Del Method O2 Flow Rate 09/25/22 16:26 Nasal Cannula 2.5 09/25/22 16:00 09/25/22 12:33 Nasal Cannula 2.5 09/25/22 08:00 09/25/22 07:05 Nasal Cannula 2 Laboratory Results CBC, BMP reviewed Blood cultures no growth to date Urine culture VRE and CON S PG Care Time/CCT Total # of Minutes Spent Total Time Spent with Patient: Total time spent is greater than 50% in coordination of care (as documented) at patient's floor/unit and/or counseling patient: Coding Level of Care Code 31276 SUB INP/OBS CARE 3/50MIN Diagnoses Acute UTI (urinary tract infection) N39.0 Generalized weakness R53.1 BPH w urinary obs/LUTS N40.1; N13.8 Superficial thrombophlebitis I80.9 Parkinson disease G20 Hypertension I10 Mitral regurgitation I34.0
[2022-09-25] MEDS: TAMSULOSIN HCL 0.4 MG CAP PO SCH (20:56)
[2022-09-26 06:27] LABS: Basophils # (auto) 0.03 K/uL (0-0.2); Basophils % (auto) 0.4 %; Eosinophils # (auto) 0.16 K/uL (0-0.50); Eosinophils % (auto) 2.3 %; Hematocrit (blood only) 36.2 % (42.0-52.0); Hemoglobin 12.3 g/dl (14.0-18.0); Immature Granulocytes # (auto) 0.03 K/uL (0.01-0.20); Immature Granulocytes % (auto) 0.4 %; Lymphocytes # (auto) 0.91 K/uL (1.2-3.4); Lymphocytes % (auto) 12.9 %; Mean Corpuscular Hemoglobin 31.5 pg (25.0-34.0); Mean Corpuscular Volume 92.6 fL (80.0-100.0); Mean Platelet Volume 10.6 fL (9.4-12.4); Monocytes # (auto) 1.13 K/uL (0.11-0.59); Platelet Count 144 K/uL (130-400); RDW Coefficient of Variation 13.1 % (11.5-14.5); RDW Standard Deviation 44.5 fL (36.4-46.3); Red Blood Count 3.91 M/uL (4.70-6.10); White Blood Count 7.06 K/ul (4.8-10.8)
[2022-09-26 06:45] LABS: BUN Creatinine Ratio 24.2 (10-20); Calcium 9.6 mg/dl (8.6-10.3); Creatinine Clr Calc Pharmacy 51.2 ml/min; Est GFR (African American) 83.1 ml/min; Est GFR (Non-African American) 71.7 ml/min; Potassium 4.2 mmol/L (3.5-5.1)
[2022-09-26] MEDS: APIXABAN 2.5 MG TAB PO SCH ×2 (09:49→20:35)
[2022-09-26] MEDS: amLODIPine BESYLATE 5 MG TAB PO SCH (09:49)
[2022-09-26] MEDS: ASPIRIN 81 MG ECTAB PO SCH (09:51)
[2022-09-26] MEDS: CARBIDOPA/LEVODOPA 25/100MG TAB PO SCH ×3 (09:51→20:35)
[2022-09-26] MEDS: lisinopril 2.5 MG TAB PO SCH (09:53)
[2022-09-26] MEDS: FINASTERIDE 5 MG TAB PO SCH (09:53)
[2022-09-26] MEDS: DAPTOmycin 550 MG in SYRINGE 0 ML IV SCH (09:53)
--- NOTE | 2022-09-26 10:00 | XCELERA ---
[id number] \\[id number]
--- NOTE | 2022-09-26 14:08 | Hospitalist Progress Note ---
Date of Service September 26, 2022 Assessment & Plan (1) Acute UTI (urinary tract infection): Plan: With sepsis, likely POA -Patient has a hx of recurrent uti on account of urinary retention from BPH -Presents with weakness and found to have UTI. Spiked high fevers and ta chycardia on 09/24-blood cultures redrawn and remain no growth to date. Blood cultures from 09/20 are negative Cultures growing VRE and coagulase-negative Staphylococcus Initially on cefepime but then changed to daptomycin on 09/23-now improving-no more fevers, WBC count back to normal -Urology on consult, continue thurston catheter -Consult ID for recommendations regarding antibiotics-agrees with continued daptomycin, follow fever curve, and follow-up blood cultures -will need US-guided IV placed for IV abx at [facility]-ordered -plan for 7 days of tx with last day 09/29 (2) Generalized weakness: Plan: -Likely secondary to UTI -With acute metabolic encephalopathy secondary to UTI and sepsis -CT of the head was negative for acute changes, CXR negative for acute changes, no focal neuro defects -mentation greatly improved -PT/OT-recommend rehab (3) BPH w urinary obs/LUTS: Plan: -Continue thurston cath - placed for urinary retention in the ER. Consult urology given ongoing intermittent urine retention leading to UTIs. -Continue flomax and finasteride -Urology on consult -Per urology, will maintain thurston and have him follow up outpatient (4) PVC (premature ventricular contraction): Plan: frequent PVCs and short NSVT runs h/o such he is feeling palpitations preserved EF on ECHO -add metoprolol 25mg po bid monitor on tele (5) Hypertension: Plan: -BPs slightly elevated -Continue amlodipine and lisinopril -adding metoprolol for NSVT and frequent PVCs (6) Mitral regurgitation: Plan: Very loud murmur heard on examination however ECHO here shows mild and mild MR As per outpatient PCP notes, he has known moderate MR on last echo from 2020 -adding beta ambar (7) Aortic stenosis: Plan: mild on ECHO here follow with Cardiology (8) Parkinson disease: Plan: -Continue Carbidopa-Levodopa -PT/OT (9) Superficial thrombophlebitis: Plan: -Continue Eliquis Plan DVT prophylaxis-Eliquis Disposition-remain on PCU, PT/OT recommended SNF- is hesitant but is now agreeable for at least a short-term stay at [facility]-plan to dc there tomorrow Admission and Anticipated Discharge Date Admission Date: September 20, 2022 Subjective Pt denies pain, feels better today. Much more awake and interactive. Denies abdominal pain Tele with NSR, frequent PVCs, rates 70-80s, 9 beat run VT Physical Exam Constitutional: WD/WN, vitals as above Neck: trachea midline, no thyromegaly Respiratory: normal respiratory effort, lungs clear to auscultation Cardiovascular: Rate/Rhythm: regular rate and regular rhythm Heart Sounds: + murmur (3-4/6 holosystolic murmur heard best at the apex radiating to axilla) Chest (Breasts): Chest: normal inspection of chest Gastrointestinal (Abdomen): normal bowel sounds, soft, nontender, no hepatosplenomegaly Musculoskeletal: Extremities: extremities normal to inspection; no cyanosis and no clubbing Skin: no rashes, warm and dry Neurologic: moves all extremities (With rigidity) and awake; not confused Motor/Sensory: + tremor (Resting tremor in arms) Psychiatric: Orientation: alert, oriented to person, oriented to place and cooperative Results & Data Results & Data Vital Signs (Past 12 Hours) Vital Signs Temp Pulse Pulse Resp BP BP Pulse Ox 09/26/22 11:16 82 09/26/22 10:22 36.5 C 48 L 16 145/75 H 96 09/26/22 03:35 36.5 C 61 17 136/74 96 O2 Del Method O2 Flow Rate 09/26/22 11:16 09/26/22 10:22 Room Air 09/26/22 03:35 Nasal Cannula 2 Laboratory Results CBC, BMP reviewed BCxs NGTD PG Care Time/CCT Total # of Minutes Spent Total Time Spent with Patient: Total time spent is greater than 50% in coordination of care (as documented) at patient's floor/unit and/or counseling patient: Coding Level of Care Code 22593 SUB INP/OBS CARE 3/50MIN Diagnoses Acute UTI (urinary tract infection) N39.0 Generalized weakness R53.1 BPH w urinary obs/LUTS N40.1; N13.8 PVC (premature ventricular contraction) I49.3 Hypertension I10 Mitral regurgitation I34.0 Aortic stenosis I35.0 Parkinson disease G20 Superficial thrombophlebitis I80.9
[2022-09-26] MEDS: METOPROLOL TARTRATE 25 MG TAB PO SCH ×2 (14:57→20:35)
--- NOTE | 2022-09-26 17:59 | Infectious Disease Progress Nt ---
Date of Service September 26, 2022 Assessment & Plan (1) Generalized weakness: (2) Acute UTI (urinary tract infection): Plan This is an 87 year old male with pmh ofBPH , recurrent UTI's, HTN, CKD, Parkinson's disease with dementia, and superficial phlebitis on Eliquis who presents with weakness and lethargy.He is lethargic on my initil exam and can not provide a history. History obtained by chart review. His is at bedside and provides some information. She brought him in for evaluation of progressive weakness that she feels he gets with UTI. He did not complain of change in urine or bowel habits, fever, chills, abdominal pain, nausea, vomiting or cough. He has no rash or wounds on exam. On admission,he is afebrile with HR 110-113, BP 130/85, o2 sats 99% RA , RR 16. Labs noted for wbc 8.68, H/H 13.4/40.4, BUN 37, cr 1.24. UA with > 30 WBC. Cxr with no acute process. CT head with out acute intracranial process. A thurston was placed in the ED. He was started on Cefepime. UC grew VRE and CONS. BC are sterile to date. His antibiotics were changed to Daptomycin. His hospital course was c/b new fevers that started 09/24 with rigors: Tmax 38.9. Repeat BC obtained on 09/24 . ID consulted for recurrent UTIs and fever. Micro BC 09/20 NGTD BC 09/24 NGTD UC 09/20 VRE and CONS Abx Dapto 09/23- ongoing Cefepime 09/20-09/23 1. Urine retention,thurston in place 2. VRE and CONS UTI 3. History of recurrent UTI 4. Fever/rigors on 09/24, unknown etiology, no localizing symptoms currently on exam: RESOLVED 5. Parkinsons disease He has a h/o of BPH, urinary retention with recurrent UTis sp REZUM procedure with continued urinary retention requiring thurston this admission. UC + CONS, Vre. he is tolerating Dapto started on 09/23. Bc are sterile to date and his fevers have not recurred. His feels he is at his baseline on abx for UTI. Recommendations: -Complete 7 days of Daptomycin 6mg/kg ( 460 mg ) iv daily EOT 09/29 -Follow up BC from 09/24 -FOllow up with urology regarding plan for follow catheter -Continue close follow up with urology once discharged. - ID will sign off. Sofiya Ly MD, MPH Infectious Disease [facility], [facility] Call [phone] with questions Admission and Anticipated Discharge Date Admission Date: September 20, 2022 Subjective Subsequent visit was provided via telemedicine using two-way real-time interactive telecommunication between the patient and the telemedicine provider. For the duration of the visit, the provider was performing the assessment from a different facility than the patient. This includesuse of bluetooth stethoscope forauscultationperformed by the telepresenter that the telemedicine provider can hear if described in the physical exam. Accounting Manager Assistant Controller contact information: Please call [facility] Call Center . (Phone Number For Physician Use Only) After establishing a telemedicine visit, patient was: Patient was verified with two unique identifiers, Patient/authorized rep acknowledged consent and understanding and Gave permission to continue telehealth session Time Spent with Patient: Subsequent => 25 min BC from 09/24 sterile so far. Fevers resolved. He much more awake and alert. Offers no complaints. He denies chills, diarrhea, sob, chest pain. His is at bedside WBC 6.16, cr 0.97 Physical Exam Physical Exam: Constitutional: Nad Eyes: EOMI, anicteric sclera Neck: Supple Respiratory: No increased Work of breathing Chest (Breasts): Additional Comments: No chest wall tenderness Gastrointestinal (Abdomen): Soft, not tender Neurologic: Awake, alert Psychiatric: cooperative Genitourinary: thurston in place with susan urine Results & Data Vital Signs (Past 12 Hours) Vital Signs Temp Pulse Pulse Resp BP Pulse Ox O2 Del Method 09/26/22 16:15 75 09/26/22 15:18 36.4 C L 120 H 18 91/51 L 95 Room Air 09/26/22 11:16 82 09/26/22 10:22 36.5 C 48 L 16 145/75 H 96 Room Air Laboratory Results Laboratory Results - last 48 hr 09/25/22 09/25/22 09/26/22 07:01 07:01 06:08 WBC 6.16 7.06 RBC 4.05 L 3.91 L Hgb 12.5 L 12.3 L Hct 37.7 L 36.2 L MCV 93.1 92.6 MCH 30.9 31.5 MCHC 33.2 34.0 RDW Std Deviation 45.8 44.5 RDW Coeff of Ramy 13.4 13.1 Plt Count 162 144 MPV 11.0 10.6 Immature Gran % (Auto) 0.4 Neut % (Auto) 68.0 Lymph % (Auto) 12.9 [place] % (Auto) 16.0 Eos % (Auto) 2.3 Baso % (Auto) 0.4 Neut # (Auto) 4.80 Lymph # (Auto) 0.91 L [place] # (Auto) 1.13 H Eos # (Auto) 0.16 Baso # (Auto) 0.03 Immature Gran # (Auto) 0.03 Sodium 140 Potassium 4.2 Chloride 112 H Carbon Dioxide 23 Anion Gap 5 BUN 25 H Creatinine 0.97 Est Cr Clr Drug Dosing 50.2 Est GFR ( Amer) 81.0 Est GFR (Non-Af Amer) 69.9 BUN/Creatinine Ratio 25.8 H Glucose 89 Calcium 9.3 09/26/22 06:08 WBC RBC Hgb Hct MCV MCH MCHC RDW Std Deviation RDW Coeff of Ramy Plt Count MPV Immature Gran % (Auto) Neut % (Auto) Lymph % (Auto) [place] % (Auto) Eos % (Auto) Baso % (Auto) Neut # (Auto) Lymph # (Auto) [place] # (Auto) Eos # (Auto) Baso # (Auto) Immature Gran # (Auto) Sodium 137 Potassium 4.2 Chloride 108 H Carbon Dioxide 23 Anion Gap 6 BUN 23 Creatinine 0.95 Est Cr Clr Drug Dosing 51.2 Est GFR ( Amer) 83.1 Est GFR (Non-Af Amer) 71.7 BUN/Creatinine Ratio 24.2 H Glucose 95 Calcium 9.6 Diagnostic Findings Microbiology 09/24/22 12:42 Blood Aerobic Blood Culture - Preliminary No growth in Aerobic bottle after 48 hours. 09/24/22 12:42 Blood Anaerobic Blood Culture - Preliminary No growth in Anaerobic bottle after 48 hours. 09/24/22 12:40 Blood Aerobic Blood Culture - Preliminary No growth in Aerobic bottle after 48 hours. 09/24/22 12:40 Blood Anaerobic Blood Culture - Preliminary No growth in Anaerobic bottle after 48 hours. 09/20/22 14:48 Blood Aerobic Blood Culture - Final No growth in Aerobic bottle after 5 days. 09/20/22 14:48 Blood Anaerobic Blood Culture - Final No growth in Anaerobic bottle after 5 days. 09/20/22 14:05 Blood Aerobic Blood Culture - Final No growth in Aerobic bottle after 5 days. 09/20/22 14:05 Blood Anaerobic Blood Culture - Final No growth in Anaerobic bottle after 5 days. 09/20/22 15:55 Urine,Clean Catch Urine Culture - Final Coag negative Staphylococcus Enterococcus faecium VRE Medications Administered Home Medications Medication Instructions Recorded Confirmed Last Taken amlodipine 2.5 mg tablet 2.5 mg PO QAM 12/04/21 09/20/22 01/29/22 apixaban 2.5 mg tablet (Eliquis) 2.5 mg PO BID 12/04/21 09/20/22 01/29/22 aspirin 81 mg capsule 81 mg PO QAM 12/04/21 09/20/22 01/29/22 carbidopa 25 mg-levodopa 100 mg 1 tab PO TID 12/04/21 09/20/22 01/29/22 tablet (Sinemet) cholecalciferol (vitamin D3) 50 50 mcg PO DAILY 12/04/21 09/20/22 01/29/22 mcg (2,000 unit) capsule finasteride 5 mg tablet (Proscar) 5 mg PO QAM 12/04/21 09/20/22 01/29/22 pantoprazole 40 mg tablet,delayed 40 mg PO 3XWK 12/04/21 09/20/22 09/18/22 release tamsulosin 0.4 mg capsule (Flomax) 0.4 mg PO QPM 12/04/21 09/20/22 01/29/22 cyanocobalamin (vitamin B-12) 1,000 mcg PO DAILY 01/21/22 09/20/22 01/29/22 1,000 mcg tablet (Vitamin B-12) lisinopril 2.5 mg tablet 2.5 mg PO DAILY 07/25/22 09/20/22 Unknown psyllium husk 3.4 gram/5.4 gram 1 tbsp PO DAILY 07/25/22 09/20/22 Unknown oral powder (Metamucil) Active Medications Generic Name Dose Route Start Last Admin Trade Name Freq PRN Reason Stop Dose Admin Amlodipine Besylate 2.5 mg 09/21/22 09:00 09/26/22 09:49 Amlodipine Besylate 5 Mg Tab PO 10/21/22 08:59 2.5 mg QAM CORI Administration Apixaban 2.5 mg 09/20/22 21:00 09/26/22 09:49 Apixaban 2.5 Mg Tab PO 10/20/22 20:59 2.5 mg BID CORI Administration Aspirin 81 mg 09/21/22 09:00 09/26/22 09:51 Aspirin 81 Mg Ectab PO 10/21/22 08:59 81 mg QAM CORI Administration Carbidopa/Levodopa 1 tab 09/21/22 09:00 09/26/22 14:33 Carbidopa/Levodopa 25/100mg Tab PO 10/21/22 08:59 1 tab TID CORI Administration Finasteride 5 mg 09/21/22 09:00 09/26/22 09:53 Finasteride 5 Mg Tab PO 10/21/22 08:59 5 mg QAM CORI Administration Daptomycin 550 mg/ Syringe 11 mls @ 5.5 mls/min 09/23/22 09:00 09/26/22 09:53 IV 10/03/22 08:59 5.5 mls/min Q24H CORI Administration Protocol Lisinopril 2.5 mg 09/21/22 09:00 09/26/22 09:53 Lisinopril 2.5 Mg Tab PO 10/21/22 08:59 2.5 mg DAILY CORI Administration Metoprolol Tartrate 25 mg 09/26/22 14:30 09/26/22 14:57 Metoprolol Tartrate 25 Mg Tab PO 10/26/22 14:29 25 mg BID CORI Administration Pantoprazole Sodium 40 mg 09/23/22 09:00 09/25/22 07:40 Pantoprazole 40 Mg Tab PO 10/23/22 08:59 40 mg [id number] CORI Administration Tamsulosin HCl 0.4 mg 09/20/22 21:00 09/25/22 20:56 Tamsulosin Hcl 0.4 Mg Cap PO 10/20/22 20:59 0.4 mg QPM CORI Administration
[2022-09-26] MEDS: TAMSULOSIN HCL 0.4 MG CAP PO SCH (20:36)
[2022-09-27 07:16] LABS: BUN Creatinine Ratio 30.4 (10-20); Calcium 9.4 mg/dl (8.6-10.3); Creatinine Clr Calc Pharmacy 47.7 ml/min; Est GFR (African American) 76.2 ml/min; Est GFR (Non-African American) 65.8 ml/min; Magnesium 1.8 mg/dl (1.7-2.4)
[2022-09-27] MEDS: ASPIRIN 81 MG ECTAB PO SCH (08:31)
[2022-09-27] MEDS: CARBIDOPA/LEVODOPA 25/100MG TAB PO SCH ×2 (08:31→14:34)
[2022-09-27] MEDS: PANTOprazole 40 MG TAB PO SCH (08:31)
[2022-09-27] MEDS: APIXABAN 2.5 MG TAB PO SCH (08:31)
[2022-09-27] MEDS: FINASTERIDE 5 MG TAB PO SCH (08:31)
[2022-09-27] MEDS: amLODIPine BESYLATE 5 MG TAB PO SCH (08:32)
[2022-09-27] MEDS: METOPROLOL TARTRATE 25 MG TAB PO SCH (08:32)
[2022-09-27] MEDS ORDERED: DAPTOMYCIN IV SCH (09:30)
[2022-09-27] MEDS: lisinopril 2.5 MG TAB PO SCH (10:04)
--- NOTE | 2022-09-27 11:11 | Discharge Summary ---
Discharge Summary Date of Service September 27, 2022 Notes For Next Care Provider Needs monthly Thurston catheter exchanges and follow up with Urology Medication Changes From Visit Daptomycin 460mg IV daily through 09/29/22 Metoprolol 25mg po bid added Admission HPI Per Admitting Provider Onel Davenport is an 87 year old male with a PMH significant for BPH with LUTS and recurrent UTI's, HTN, HLP, CKD, Parkinson's disease with dementia, and superficial phlebitis (on Eliquis) who presented to the [facility] ED from [facility] via EMS due to generalized weakness. In the ED the patient was tachycardic with HR in the 110's but otherwise stable. Labs were significant for a UA with 3+ leukocyte esterase and > [address] of the head was read as "No acute intracranial findings. No change in appearance of the brain.". Chest xray was negative for acute process. Prior to admission the patient was given a dose of cefepime and 500 mL NSS. At the time of the exam the patient was sleeping comfortably in bed with his sitting bedside, history was obtained from his . The patient started to act more confused than his baseline yesterday. He does have baseline dementia, he normally is oriented to self and their home. Today their physical therapist tried to work with him but the patient was took weak. His states she brought him to the ED because this is typically how he acts when he gets UTI's. The patient was easy to wake but appears fatigued and weak. He denies any complaints besides having the sensation that he has to urinate frequently, currently has a condom catheter in place. I spoke to his regarding code status, at this time the patient would not want CPR or defibrillation in the event of cardiac arrest. They would still want a trial of intubation in the event of respiratory arrest. Please refer to Dr. Ferro's attestation for any changes to the treatment plan Principal Dx & Hospital Course #1 = Principal Diagnosis (1) Acute UTI (urinary tract infection): With sepsis, likely POA -Patient has a hx of recurrent uti on account of urinary retention from BPH -Presents with weakness and found to have UTI. Spiked high fevers and tachycardia on 09/24-blood cultures redrawn and remain no growth to date. Blood cultures from 09/20 are negative Cultures growing VRE and coagulase-negative Staphylococcus Initially on cefepime but then changed to daptomycin on 09/23-now improving-no more fevers, WBC count back to normal -Urology on consult, continue thurston catheter indefinitely -Consult ID for recommendations regarding antibiotics-agrees with continued daptomycin x 7 days, follow fever curve, and follow-up blood cultures-remain no growth to date for 72 hours - US-guided IV placed for IV abx at [facility] -plan for 7 days of tx with last day 09/29 -CK normal--> check CBC, CMP, CK in 3 days (2) Generalized weakness: -Likely secondary to UTI -With acute metabolic encephalopathy secondary to UTI and sepsis -CT of the head was negative for acute changes, CXR negative for acute changes, no focal neuro defects -mentation greatly improved but does have periods of deep sleep which is normal for him as per -PT/OT-recommend rehab (3) BPH w urinary obs/LUTS: -Continue thurston cath - placed for urinary retention in the ER. Consult urology given ongoing intermittent urine retention leading to UTIs. -Continue flomax and finasteride -Urology on consult -Per urology, will maintain thurston and have him follow up outpatient (4) PVC (premature ventricular contraction): frequent PVCs and short NSVT runs h/o such he is feeling palpitations preserved EF on ECHO -added metoprolol 25mg po bid and ectopy reduced, HR in 60s at rest now f/u with Cardiology as routinely scheduled (5) Hypertension: -BPs slightly elevated and now improved with adding metoprolol -Continue amlodipine and lisinopril -added metoprolol for NSVT and frequent PVCs (6) Mitral regurgitation: Very loud murmur heard on examination however ECHO here shows mild and mild MR As per outpatient PCP notes, he has known moderate MR on last echo from 2020 -added beta ambar (7) Aortic stenosis: mild on ECHO here follow with Cardiology (8) Parkinson disease: -Continue Carbidopa-Levodopa -PT/OT (9) Superficial thrombophlebitis: -Continue Eliquis Plan DVT prophylaxis-Eliquis Disposition-dc to short-term stay at [facility] at [facility] Discharge Exam Constitutional WD/WN, vitals as above Neck trachea midline, no thyromegaly Respiratory normal respiratory effort, lungs clear to auscultation Cardiovascular Rate/Rhythm: regular rate and regular rhythm Heart Sounds: + murmur (3-4/6 holosystolic murmur heard best at the apex radiating to axilla) Chest (Breasts) Chest: normal inspection of chest Gastrointestinal (Abdomen) normal bowel sounds, soft, nontender, no hepatosplenomegaly Musculoskeletal Extremities: extremities normal to inspection; no cyanosis and no clubbing Skin no rashes, warm and dry Neurologic moves all extremities (With rigidity) Motor/Sensory: + tremor (Resting tremor in arms) Updated Medication List Medication Instructions Recorded Confirmed Type amlodipine 2.5 mg tablet 2.5 mg PO QAM 12/04/21 09/20/22 History apixaban 2.5 mg tablet (Eliquis) 2.5 mg PO BID 12/04/21 09/20/22 History aspirin 81 mg capsule 81 mg PO QAM 12/04/21 09/20/22 History carbidopa 25 mg-levodopa 100 mg 1 tab PO TID 12/04/21 09/20/22 History tablet (Sinemet) cholecalciferol (vitamin D3) 50 50 mcg PO DAILY 12/04/21 09/20/22 History mcg (2,000 unit) capsule finasteride 5 mg tablet (Proscar) 5 mg PO QAM 12/04/21 09/20/22 History pantoprazole 40 mg tablet,delayed 40 mg PO 3XWK 12/04/21 09/20/22 History release tamsulosin 0.4 mg capsule (Flomax) 0.4 mg PO QPM 12/04/21 09/20/22 History cyanocobalamin (vitamin B-12) 1,000 mcg PO DAILY 01/21/22 09/20/22 History 1,000 mcg tablet (Vitamin B-12) lisinopril 2.5 mg tablet 2.5 mg PO DAILY 07/25/22 09/20/22 History psyllium husk 3.4 gram/5.4 gram 1 tbsp PO DAILY 07/25/22 09/20/22 History oral powder (Metamucil) daptomycin 500 mg intravenous 460 mg IV DAILY #2 ea 09/27/22 Rx solution metoprolol tartrate 25 mg tablet 25 mg PO BID #60 tabs 09/27/22 Rx Hospital Stay Data Consultations 09/21/22 10:16 Consult Urology Routine 09/24/22 10:45 Consult Infectious Diseases Routine Diagnostic Imagining Performed 09/20/22 16:41 CT head/brain wo con Stat ECHO Pending Results Patient Have Any Pending Studies at Discharge: Yes (Final blood cultures-no growth to date) Discharge Instructions Given to Patient (Per Discharging Provider) Please finish out Daptomycin through last date of treatment on 09/29/22 for your UTI. Your Thurston catheter should remain in place indefinitely and you will need follow up with Urology. You were having a lot of ventricular ectopy and were started on metoprolol which helped improve this. Total Time Total Time Spent Total Time Spent (In Minutes): 40 min Coding Level of Care Code 20568 INP/OBS DISCH >30 MIN Diagnoses Acute UTI (urinary tract infection) N39.0 Generalized weakness R53.1 BPH w urinary obs/LUTS N40.1; N13.8 PVC (premature ventricular contraction) I49.3 Hypertension I10 Mitral regurgitation I34.0 Aortic stenosis I35.0 Parkinson disease G20 Superficial thrombophlebitis I80.9
== END 2022-09-27 15:25 | DRG 871 ==
LOC: ED 13:26 → 2W 18:35 → SUATTDRO 18:35 → 2W 20:12 → 2S 09-24 13:36

== ENCOUNTER 2022-10-06 10:50 | Inpatient (IN) ==
[2022-10-06] MEDS ORDERED: SODIUM CHLORIDE 0.9% 1000ML 500 ML IV SCH (11:45)
[2022-10-06 11:53] LABS: Alanine Aminotransferase 39 U/L (7-52); Albumin Globulin Ratio 1.5 (0.9-2); Albumin Level 4.2 gm/dl (3.4-5.0); Alkaline Phosphatase 73 U/L (34-104); Anion Gap 10 (3-11); Aspartate Aminotransferase 35 U/L (13-39); BUN Creatinine Ratio 20.5 (10-20); Bilirubin,Total 1.1 mg/dl (0.2-1.0); Blood Urea Nitrogen 49 mg/dl (6-23); Calcium 10.2 mg/dl (8.6-10.3); Carbon Dioxide 23 mmol/L (21-32); Chloride 105 mmol/L (98-107); Est GFR (African American) 27.2 ml/min; Est GFR (Non-African American) 23.5 ml/min; Globulin 2.8 gm/dl (2.5-4.0); Glucose 122 mg/dl (70-99(Fasting)); Lipase 31 U/L (11-82); Potassium 4.5 mmol/L (3.5-5.1); Sodium 138 mmol/L (136-145)
--- NOTE | 2022-10-06 12:00 | Emergency Department Note ---
Impression & Plan Sepsis, Acute UTI (urinary tract infection), NADINE (acute kidney injury), Non-ST elevation [place] (NSTEMI), Elevated lactic acid level ED Provider Note HISTORY OF PRESENT ILLNESS: Patient is an 87-year-old male presenting with hypotension and fever. Patient is nonverbal secondary to Parkinson's disease, so history is obtained from report. Patient presents from [facility] where he was reportedly short of breath and hypotensive and febrile throughout the night. He was given Tylenol and a gram of Rocephin at 2 AM. He reportedly was complaining of lower abdominal pain earlier to the staff. On arrival to the ER, the patient just makes moaning noises ROS: as above PHYSICAL EXAM: Constitutional: Patient appears in no acute distress. HENT: Head: Normocephalic and atraumatic. Eyes: EOMI, PERRL Mouth/Throat: Mucous membranes moist. Neck: Trachea midline. Neck supple. Cardiovascular: RRR, No murmurs, rubs or gallops. Intact distal pulses. Pulmonary/Chest: No respiratory distress. Breath sounds clear and equal bilaterally. No wheezes or rales. Abdominal: BS +. Abdomen soft, no tenderness, rebound or guarding. Musculoskeletal: No edema, tenderness or deformity noted. Skin: Warm and dry. No rash, erythema, pallor or cyanosis Neurological: Alert. CN II-XII grossly intact, moving all extremities equally and fully. MDM: - Vitals signs showed hypotension. - History obtained via EMS, given patient's confusion. Patient presents with hypotension. Patient reportedly was complaining of lower abdominal pain last night at his facility. He was found to be hypotensive and short of breath. They state that he was febrile. He was given Tylenol and a gram of Rocephin prophylactically at the facility. He was sent to the ER for further evaluation. - Chronic conditions affecting care: HTN; HLD; CKD stage 3; Parkinson's disease - Differential diagnoses include, but are not limited to: Pneumonia; UTI; diverticulitis; bacteremia; small bowel obstruction - Order placed for continuous cardiac monitoring. At this time, monitor showed rate of 75 bpm with normal sinus rhythm, per my interpretation. - External medical records reviewed. Patient was admitted for UTI 3 weeks ago and grew VRE in his urine and was on daptomycin. - EKG reviewed by myself showed normal sinus rhythm. Rate 81 bpm. PACs noted. No acute ischemic changes. QTc 441. - Laboratory workup interpreted by myself showed leukocytosis (WBC 38.29) with shift; elevated troponin (653.9); NADINE (Cr 2.39 - baseline around 1.0); elevated lactate (2.2) - CXR negative for pneumonia, per my interpretation. - CT abdomen/pelvis wo contrast showed Garcia catheter in incorrect location. No obvious small bowel obstruction. - UA shows evidence of infection. - Patient given 2L NS with improvement in BP. - Blood cultures obtained. - Garcia was replaced. - IV daptomycin and cefepime ordered. - Discussion was had with social worker school about patient's case and need for admission. - Hospitalist, Dr. Ferro, consulted for admission - [facility] ASSESSMENT AND PLAN: Diagnosis: sepsis; UTI; NADINE; NSTEMI; elevated lactate Plan: admit Past Med/Surg History Medical History (Updated 10/06/22 @ 16:10 by Vijay Casarez PA-C) Acute dehydration Aortic stenosis BPH w urinary obs/LUTS Dementia Diverticulosis of large intestine without perforation or abscess without bleeding Dysarthria and anarthria Dysphagia Dysphonia Hearing deficit [place] left History of basal cell carcinoma History of blood clots superficial - LLE - 2 years ago, RLE - approx 1 year ago? History of SCC (squamous cell carcinoma) of skin Hyperlipidemia Hypertension 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 stage III Irregular heart rhythm follows w/ Dr. Gayle Lab test negative for COVID-19 virus Mitral regurgitation Muscle spasm of back Other abnormalities of gait and mobility Parkinson disease Poor historian PVC (premature ventricular contraction) Resides in [facility]dc facility current resident of [facility] Sepsis Weakness Weakness Surgical History History of colonoscopy History of eye surgery Rt eye History of knee surgery Rt Status post Mohs surgery Family History Other Adopted Social History Smoking Status: Former smoker Second Hand Exposure: No; Do You Dip or Chew Tobacco: No; Hx Alcohol Use: Yes Alcohol type: beer, wine and hard liquor Alcohol Intake Frequency: Monthly or Less Hx Substance Use: No Preferred Language: Chinese Communication Ability: Effective Hotel Or Motel Manager Required: No Beliefs That Will Affect Care: None marital status: Current Living Situation: Spouse and Personal Care Facility Current Living Situation Comment: [facility]. current occupational status: retired Feels Safe at Home: Yes Assistive Devices: Cane and Walker Allergies Allergies Allergy/AdvReac Type Severity Reaction Status Date / Time No Known Allergies Allergy Verified 06/20/22 09:01 Home Meds Home Medications Medication Instructions Recorded Confirmed amlodipine 2.5 mg tablet 2.5 mg PO QAM 12/04/21 10/06/22 carbidopa 25 mg-levodopa 100 mg 1 tab PO TID 12/04/21 10/06/22 tablet (Sinemet) cholecalciferol (vitamin D3) 50 50 mcg PO DAILY 12/04/21 10/06/22 mcg (2,000 unit) capsule finasteride 5 mg tablet (Proscar) 5 mg PO QAM 12/04/21 10/06/22 pantoprazole 40 mg tablet,delayed 40 mg PO 3XWK 12/04/21 10/06/22 release cyanocobalamin (vitamin B-12) 1,000 mcg PO DAILY 01/21/22 10/06/22 1,000 mcg tablet (Vitamin B-12) lisinopril 2.5 mg tablet 2.5 mg PO DAILY 07/25/22 10/06/22 psyllium husk 3.4 gram/5.4 gram 1 tbsp PO DAILY 07/25/22 10/06/22 oral powder (Metamucil) acetaminophen 325 mg tablet 650 mg PO Q4H PRN pain or fever 10/06/22 10/06/22 bisacodyl 10 mg rectal suppository 10 mg IN Q48H PRN Constipation 10/06/22 10/06/22 (Dulcolax (bisacodyl)) heparin (bovine) 5,000 unit/mL See Rx Instructions .Route .COMPLEX 10/06/22 10/06/22 injection solution magnesium hydroxide 400 mg/5 mL 30 ml PO Q48H PRN Constipation 10/06/22 10/06/22 oral suspension (Milk of Magnesia) sodium phosphates 19 gram-7 118 ml IN Q72H PRN Constipation 10/06/22 10/06/22 gram/118 mL enema (Fleet Enema) Results & Data (ED) Vital Signs Vital Signs - 24 hr 10/06/22 10:57 10/06/22 10:57 10/06/22 11:03 Temperature 36.8 C 36.8 C Temperature Source Oral Oral Pulse Rate 83 89 Pulse Rate from SpO2 Sensor Respiratory Rate 14 15 Blood Pressure 109/53 L Blood Pressure Mean 71 Pulse Oximetry 95 Oxygen Delivery Method Room Air Sepsis Recent Fever Within 48 Hours Yes Sepsis New/Unexplained Change in Mental Status No Sepsis Action Taken by Nursing No Action Required 10/06/22 10:58 10/06/22 11:00 10/06/22 11:00 Temperature Temperature Source Pulse Rate 88 83 Pulse Rate from SpO2 Sensor 85 81 Respiratory Rate 20 20 Blood Pressure 103/57 L Blood Pressure Mean 78 Pulse Oximetry 97 96 Oxygen Delivery Method Sepsis Recent Fever Within 48 Hours Sepsis New/Unexplained Change in Mental Status Sepsis Action Taken by Nursing 10/06/22 11:10 10/06/22 10:56 10/06/22 11:30 Temperature Temperature Source Pulse Rate 74 Pulse Rate from SpO2 Sensor 75 Respiratory Rate 20 Blood Pressure Blood Pressure Mean Pulse Oximetry 97 95 95 Oxygen Delivery Method Room Air Room Air Sepsis Recent Fever Within 48 Hours Sepsis New/Unexplained Change in Mental Status Sepsis Action Taken by Nursing 10/06/22 11:15 10/06/22 11:15 10/06/22 11:20 Temperature Temperature Source Pulse Rate 79 81 Pulse Rate from SpO2 Sensor 79 79 Respiratory Rate 20 20 Blood Pressure 89/55 L Blood Pressure Mean 64 Pulse Oximetry 98 97 Oxygen Delivery Method Sepsis Recent Fever Within 48 Hours Sepsis New/Unexplained Change in Mental Status Sepsis Action Taken by Nursing 10/06/22 11:30 10/06/22 11:30 10/06/22 11:40 Temperature Temperature Source Pulse Rate 77 77 Pulse Rate from SpO2 Sensor 73 76 Respiratory Rate 20 28 H Blood Pressure 88/53 L Blood Pressure Mean 58 Pulse Oximetry 96 98 Oxygen Delivery Method Sepsis Recent Fever Within 48 Hours Sepsis New/Unexplained Change in Mental Status Sepsis Action Taken by Nursing 10/06/22 11:45 10/06/22 11:45 10/06/22 11:50 Temperature Temperature Source Pulse Rate 77 74 Pulse Rate from SpO2 Sensor 77 Respiratory Rate 20 20 Blood Pressure 95/54 L Blood Pressure Mean 64 Pulse Oximetry 98 Oxygen Delivery Method Sepsis Recent Fever Within 48 Hours Sepsis New/Unexplained Change in Mental Status Sepsis Action Taken by Nursing 10/06/22 12:00 10/06/22 12:00 10/06/22 12:10 Temperature Temperature Source Pulse Rate 75 77 Pulse Rate from SpO2 Sensor 77 Respiratory Rate 20 20 Blood Pressure 110/58 L Blood Pressure Mean 65 Pulse Oximetry 95 Oxygen Delivery Method Sepsis Recent Fever Within 48 Hours Sepsis New/Unexplained Change in Mental Status Sepsis Action Taken by Nursing 10/06/22 12:15 10/06/22 12:15 10/06/22 12:20 Temperature Temperature Source Pulse Rate 74 77 Pulse Rate from SpO2 Sensor 73 77 Respiratory Rate 20 20 Blood Pressure 108/59 L Blood Pressure Mean 68 Pulse Oximetry 95 96 Oxygen Delivery Method Sepsis Recent Fever Within 48 Hours Sepsis New/Unexplained Change in Mental Status Sepsis Action Taken by Nursing 10/06/22 12:30 10/06/22 12:30 10/06/22 12:40 Temperature Temperature Source Pulse Rate 80 81 Pulse Rate from SpO2 Sensor 80 81 Respiratory Rate 20 20 Blood Pressure 114/59 L Blood Pressure Mean 84 Pulse Oximetry 98 98 Oxygen Delivery Method Sepsis Recent Fever Within 48 Hours Sepsis New/Unexplained Change in Mental Status Sepsis Action Taken by Nursing 10/06/22 12:51 10/06/22 12:52 10/06/22 12:52 Temperature Temperature Source Pulse Rate 82 82 Pulse Rate from SpO2 Sensor 82 82 Respiratory Rate 20 20 Blood Pressure 109/56 L Blood Pressure Mean 69 Pulse Oximetry 97 97 Oxygen Delivery Method Sepsis Recent Fever Within 48 Hours Sepsis New/Unexplained Change in Mental Status Sepsis Action Taken by Nursing 10/06/22 13:00 10/06/22 13:00 10/06/22 13:10 Temperature Temperature Source Pulse Rate 82 79 Pulse Rate from SpO2 Sensor 81 80 Respiratory Rate 20 20 Blood Pressure 103/55 L Blood Pressure Mean 72 Pulse Oximetry 96 96 Oxygen Delivery Method Sepsis Recent Fever Within 48 Hours Sepsis New/Unexplained Change in Mental Status Sepsis Action Taken by Nursing 10/06/22 13:15 10/06/22 13:15 10/06/22 13:20 Temperature Temperature Source Pulse Rate 80 79 Pulse Rate from SpO2 Sensor 80 79 Respiratory Rate 20 20 Blood Pressure 106/55 L Blood Pressure Mean 76 Pulse Oximetry 97 99 Oxygen Delivery Method Sepsis Recent Fever Within 48 Hours Sepsis New/Unexplained Change in Mental Status Sepsis Action Taken by Nursing 10/06/22 13:30 10/06/22 13:30 10/06/22 13:40 Temperature Temperature Source Pulse Rate 83 82 Pulse Rate from SpO2 Sensor 83 82 Respiratory Rate 20 20 Blood Pressure 107/55 L Blood Pressure Mean 65 Pulse Oximetry 96 97 Oxygen Delivery Method Sepsis Recent Fever Within 48 Hours Sepsis New/Unexplained Change in Mental Status Sepsis Action Taken by Nursing 10/06/22 13:45 10/06/22 13:45 10/06/22 13:50 Temperature Temperature Source Pulse Rate 82 82 Pulse Rate from SpO2 Sensor 82 77 Respiratory Rate 20 20 Blood Pressure 111/63 Blood Pressure Mean 89 Pulse Oximetry 96 97 Oxygen Delivery Method Sepsis Recent Fever Within 48 Hours Sepsis New/Unexplained Change in Mental Status Sepsis Action Taken by Nursing 10/06/22 14:00 10/06/22 14:00 10/06/22 14:10 Temperature Temperature Source Pulse Rate 83 81 Pulse Rate from SpO2 Sensor 78 80 Respiratory Rate 20 20 Blood Pressure 97/59 L Blood Pressure Mean 69 Pulse Oximetry 96 96 Oxygen Delivery Method Sepsis Recent Fever Within 48 Hours Sepsis New/Unexplained Change in Mental Status Sepsis Action Taken by Nursing 10/06/22 14:15 10/06/22 14:15 10/06/22 14:20 Temperature Temperature Source Pulse Rate 82 85 Pulse Rate from SpO2 Sensor 83 79 Respiratory Rate 20 23 Blood Pressure 116/60 Blood Pressure Mean 94 Pulse Oximetry 96 96 Oxygen Delivery Method Sepsis Recent Fever Within 48 Hours Sepsis New/Unexplained Change in Mental Status Sepsis Action Taken by Nursing 10/06/22 14:30 10/06/22 14:30 10/06/22 14:40 Temperature Temperature Source Pulse Rate 87 81 Pulse Rate from SpO2 Sensor 75 81 Respiratory Rate 24 20 Blood Pressure 109/57 L Blood Pressure Mean 72 Pulse Oximetry 95 97 Oxygen Delivery Method Sepsis Recent Fever Within 48 Hours Sepsis New/Unexplained Change in Mental Status Sepsis Action Taken by Nursing 10/06/22 14:45 10/06/22 14:45 10/06/22 14:50 Temperature Temperature Source Pulse Rate 81 84 Pulse Rate from SpO2 Sensor 81 71 Respiratory Rate 20 20 Blood Pressure 104/57 L Blood Pressure Mean 70 Pulse Oximetry 97 95 Oxygen Delivery Method Sepsis Recent Fever Within 48 Hours Sepsis New/Unexplained Change in Mental Status Sepsis Action Taken by Nursing 10/06/22 15:00 10/06/22 15:00 10/06/22 15:10 Temperature Temperature Source Pulse Rate 83 83 Pulse Rate from SpO2 Sensor 82 80 Respiratory Rate 20 20 Blood Pressure 109/57 L Blood Pressure Mean 72 Pulse Oximetry 96 97 Oxygen Delivery Method Sepsis Recent Fever Within 48 Hours Sepsis New/Unexplained Change in Mental Status Sepsis Action Taken by Nursing 10/06/22 15:15 10/06/22 15:15 10/06/22 15:20 Temperature Temperature Source Pulse Rate 84 83 Pulse Rate from SpO2 Sensor 83 82 Respiratory Rate 20 21 Blood Pressure 106/59 L Blood Pressure Mean 78 Pulse Oximetry 97 97 Oxygen Delivery Method Sepsis Recent Fever Within 48 Hours Sepsis New/Unexplained Change in Mental Status Sepsis Action Taken by Nursing 10/06/22 15:30 10/06/22 15:40 10/06/22 15:45 Temperature Temperature Source Pulse Rate 81 80 77 Pulse Rate from SpO2 Sensor 76 81 77 Respiratory Rate 20 17 20 Blood Pressure Blood Pressure Mean Pulse Oximetry 97 99 99 Oxygen Delivery Method Sepsis Recent Fever Within 48 Hours Sepsis New/Unexplained Change in Mental Status Sepsis Action Taken by Nursing 10/06/22 15:45 10/06/22 15:50 10/06/22 16:00 Temperature Temperature Source Pulse Rate 79 Pulse Rate from SpO2 Sensor 76 Respiratory Rate 20 Blood Pressure 101/54 L 99/59 L Blood Pressure Mean 73 81 Pulse Oximetry 97 Oxygen Delivery Method Sepsis Recent Fever Within 48 Hours Sepsis New/Unexplained Change in Mental Status Sepsis Action Taken by Nursing 10/06/22 16:00 10/06/22 16:03 Temperature Temperature Source Pulse Rate 78 77 Pulse Rate from SpO2 Sensor 78 Respiratory Rate 20 Blood Pressure Blood Pressure Mean Pulse Oximetry 98 Oxygen Delivery Method Sepsis Recent Fever Within 48 Hours Sepsis New/Unexplained Change in Mental Status Sepsis Action Taken by Nursing Laboratory Data 10/06/22 11:08 10/06/22 11:08 Lab Results 10/06/22 10/06/22 10/06/22 Range/Units 11:08 11:08 11:08 WBC 38.29 H* (4.8-10.8) K/ul RBC 4.12 L (4.70-6.10) M/uL Hgb 13.1 L (14.0-18.0) g/dl Hct 38.4 L (42.0-52.0) % MCV 93.2 (80.0-100.0) fL MCH 31.8 (25.0-34.0) pg MCHC 34.1 (32.0-36.0) g/dL RDW Std Deviation 45.8 (36.4-46.3) fL RDW Coeff of Ramy 13.5 (11.5-14.5) % Plt Count 242 (130-400) K/uL MPV 11.2 (9.4-12.4) fL Immature Gran % (Auto) 3.0 % Neut % (Auto) 92.7 % Lymph % (Auto) 0.8 % [place] % (Auto) 3.3 % Eos % (Auto) 0.0 % Baso % (Auto) 0.2 % Neut # (Auto) 35.49 H (1.40-6.50) K/uL Lymph # (Auto) 0.31 L (1.2-3.4) K/uL [place] # (Auto) 1.27 H (0.11-0.59) K/uL Eos # (Auto) 0.00 (0-0.50) K/uL Baso # (Auto) 0.07 (0-0.2) K/uL Immature Gran # (Auto) 1.15 H (0.01-0.20) K/uL Sodium 138 (136-145) mmol/L Potassium 4.5 (3.5-5.1) mmol/L Chloride 105 (98-107) mmol/L Carbon Dioxide 23 (21-32) mmol/L Anion Gap 10 (3-11) BUN 49 H (6-23) mg/dl Creatinine 2.39 H (0.6-1.4) mg/dl Est Cr Clr Drug Dosing Not Reportable Est GFR ( Amer) 27.2 ml/min Est GFR (Non-Af Amer) 23.5 ml/min BUN/Creatinine Ratio 20.5 H (10-20) Glucose 122 H (70-99(Fasting)) mg/dl Lactate 2.2 H* (0.4-2.0) mmol/L Calcium 10.2 (8.6-10.3) mg/dl Magnesium 1.8 (1.7-2.4) mg/dl Total Bilirubin 1.1 H (0.2-1.0) mg/dl Direct Bilirubin 0.2 (0-0.2) mg/dl AST 35 (13-39) U/L ALT 39 (7-52) U/L Alkaline Phosphatase 73 (34-104) U/L Total Creatine Kinase (30-223) U/L Troponin I High Sens 1026.6 H* (0-20) pg/ml Total Protein 7.0 (6.0-8.3) gm/dl Albumin 4.2 (3.4-5.0) gm/dl Globulin 2.8 (2.5-4.0) gm/dl Albumin/Globulin Ratio 1.5 (0.9-2) Lipase 31 (11-82) U/L Procalcitonin (0-0.5) ng/ml Urine Color Urine Appearance (Clear) Urine pH (4.5-7.5) Ur Specific [place] (1.000-1.030) Urine Protein (Negative) Urine Glucose (UA) (Negative) Urine Ketones (Negative) Urine Blood (Negative) Urine Nitrite (Negative) Urine Bilirubin (Negative) Urine Urobilinogen (Negative) Ur Leukocyte Esterase (Negative) Urine WBC (Auto) (0-5) /hpf Urine RBC (Auto) (0-4) /hpf U Hyaline Cast (Auto) (0-5) /lpf U Epithel Cells (Auto) (0-5) /lpf Urine Bacteria (Auto) (Negative) SARS-CoV-2, RNA, NAAT (NEGATIVE) 10/06/22 10/06/22 10/06/22 Range/Units 11:08 11:55 15:25 WBC (4.8-10.8) K/ul RBC (4.70-6.10) M/uL Hgb (14.0-18.0) g/dl Hct (42.0-52.0) % MCV (80.0-100.0) fL MCH (25.0-34.0) pg MCHC (32.0-36.0) g/dL RDW Std Deviation (36.4-46.3) fL RDW Coeff of Ramy (11.5-14.5) % Plt Count (130-400) K/uL MPV (9.4-12.4) fL Immature Gran % (Auto) % Neut % (Auto) % Lymph % (Auto) % [place] % (Auto) % Eos % (Auto) % Baso % (Auto) % Neut # (Auto) (1.40-6.50) K/uL Lymph # (Auto) (1.2-3.4) K/uL [place] # (Auto) (0.11-0.59) K/uL Eos # (Auto) (0-0.50) K/uL Baso # (Auto) (0-0.2) K/uL Immature Gran # (Auto) (0.01-0.20) K/uL Sodium (136-145) mmol/L Potassium (3.5-5.1) mmol/L Chloride (98-107) mmol/L Carbon Dioxide (21-32) mmol/L Anion Gap (3-11) BUN (6-23) mg/dl Creatinine (0.6-1.4) mg/dl Est Cr Clr Drug Dosing Est GFR ( Amer) ml/min Est GFR (Non-Af Amer) ml/min BUN/Creatinine Ratio (10-20) Glucose (70-99(Fasting)) mg/dl Lactate (0.4-2.0) mmol/L Calcium (8.6-10.3) mg/dl Magnesium (1.7-2.4) mg/dl Total Bilirubin (0.2-1.0) mg/dl Direct Bilirubin (0-0.2) mg/dl AST (13-39) U/L ALT (7-52) U/L Alkaline Phosphatase (34-104) U/L Total Creatine Kinase (30-223) U/L Troponin I High Sens (0-20) pg/ml Total Protein (6.0-8.3) gm/dl Albumin (3.4-5.0) gm/dl Globulin (2.5-4.0) gm/dl Albumin/Globulin Ratio (0.9-2) Lipase (11-82) U/L Procalcitonin 34.00 H (0-0.5) ng/ml Urine Color Yellow Urine Appearance Cloudy A (Clear) Urine pH 5.5 (4.5-7.5) Ur Specific [place] 1.018 (1.000-1.030) Urine Protein 2+ H (Negative) Urine Glucose (UA) Negative (Negative) Urine Ketones Trace H (Negative) Urine Blood 3+ H (Negative) Urine Nitrite Negative (Negative) Urine Bilirubin Negative (Negative) Urine Urobilinogen Negative (Negative) Ur Leukocyte Esterase 3+ H (Negative) Urine WBC (Auto) >30 H (0-5) /hpf Urine RBC (Auto) >30 H (0-4) /hpf U Hyaline Cast (Auto) 1-5 (0-5) /lpf U Epithel Cells (Auto) 0-5 (0-5) /lpf Urine Bacteria (Auto) 2+ H (Negative) SARS-CoV-2, RNA, NAAT NEGATIVE (NEGATIVE) 10/06/22 10/06/22 10/06/22 Range/Units 15:30 15:30 16:03 WBC (4.8-10.8) K/ul RBC (4.70-6.10) M/uL Hgb (14.0-18.0) g/dl Hct (42.0-52.0) % MCV (80.0-100.0) fL MCH (25.0-34.0) pg MCHC (32.0-36.0) g/dL RDW Std Deviation (36.4-46.3) fL RDW Coeff of Ramy (11.5-14.5) % Plt Count (130-400) K/uL MPV (9.4-12.4) fL Immature Gran % (Auto) % Neut % (Auto) % Lymph % (Auto) % [place] % (Auto) % Eos % (Auto) % Baso % (Auto) % Neut # (Auto) (1.40-6.50) K/uL Lymph # (Auto) (1.2-3.4) K/uL [place] # (Auto) (0.11-0.59) K/uL Eos # (Auto) (0-0.50) K/uL Baso # (Auto) (0-0.2) K/uL Immature Gran # (Auto) (0.01-0.20) K/uL Sodium (136-145) mmol/L Potassium (3.5-5.1) mmol/L Chloride (98-107) mmol/L Carbon Dioxide (21-32) mmol/L Anion Gap (3-11) BUN (6-23) mg/dl Creatinine (0.6-1.4) mg/dl Est Cr Clr Drug Dosing Est GFR ( Amer) ml/min Est GFR (Non-Af Amer) ml/min BUN/Creatinine Ratio (10-20) Glucose (70-99(Fasting)) mg/dl Lactate 2.0 (0.4-2.0) mmol/L Calcium (8.6-10.3) mg/dl Magnesium (1.7-2.4) mg/dl Total Bilirubin (0.2-1.0) mg/dl Direct Bilirubin (0-0.2) mg/dl AST (13-39) U/L ALT (7-52) U/L Alkaline Phosphatase (34-104) U/L Total Creatine Kinase 100 (30-223) U/L Troponin I High Sens 653.9 H* D (0-20) pg/ml Total Protein (6.0-8.3) gm/dl Albumin (3.4-5.0) gm/dl Globulin (2.5-4.0) gm/dl Albumin/Globulin Ratio (0.9-2) Lipase (11-82) U/L Procalcitonin (0-0.5) ng/ml Urine Color [place] Urine Appearance Turbid A (Clear) Urine pH 6.0 (4.5-7.5) Ur Specific [place] 1.019 (1.000-1.030) Urine Protein 2+ H (Negative) Urine Glucose (UA) Negative (Negative) Urine Ketones Trace H (Negative) Urine Blood 3+ H (Negative) Urine Nitrite Positive A (Negative) Urine Bilirubin Negative (Negative) Urine Urobilinogen Negative (Negative) Ur Leukocyte Esterase 3+ H (Negative) Urine WBC (Auto) >30 H (0-5) /hpf Urine RBC (Auto) >30 H (0-4) /hpf U Hyaline Cast (Auto) 1-5 (0-5) /lpf U Epithel Cells (Auto) 0-5 (0-5) /lpf Urine Bacteria (Auto) 1+ H (Negative) SARS-CoV-2, RNA, NAAT (NEGATIVE) Administered Medications Discontinued Medications Aspirin (Aspirin Chew 324 Mg) 324 mg PO NOW STA Stop: 10/06/22 15:52 Last Admin: 10/06/22 16:22 Dose: 324 mg Documented By: JESSE Sodium Chloride (Nss 1000ml) 500 mls @ 999 mls/hr IV .Q31M CORI Stop: 10/06/22 12:15 Last Infusion: 10/06/22 12:35 Dose: 0 mls/hr Documented By: Admin: 10/06/22 11:57 Dose: 999 mls/hr Documented By: JESSE Daptomycin 550 mg/ Syringe 11 mls @ 5.5 mls/min IV ONE ONE; Protocol Stop: 10/06/22 12:15 Last Admin: 10/06/22 15:24 Dose: 5.5 mls/min Documented By: JESSE Cefepime HCl (Maxipime) 2,000 mg in 20 mls @ 5 mls/min IV NOW STA; Protocol Stop: 10/06/22 12:17 Last Admin: 10/06/22 12:36 Dose: 5 mls/min Documented By: JESSE Sodium Chloride (Nss 1000ml) 1,000 mls @ 999 mls/hr IV .Q1H1M ONE Stop: 10/06/22 13:17 Last Infusion: 10/06/22 13:45 Dose: 0 mls/hr Documented By: Admin: 10/06/22 12:36 Dose: 999 mls/hr Documented By: JESSE Lactated Ringer's (Lr) 1,000 mls @ 999 mls/hr IV .Q1H1M ONE Stop: 10/06/22 16:02 Last Admin: 10/06/22 15:25 Dose: 999 mls/hr Documented By: JESSE Metoprolol Tartrate (Metoprolol Tartrate 25 Mg Tab) 25 mg PO NOW STA Stop: 10/06/22 15:56 Last Admin: 10/06/22 16:23 Dose: Not Given Documented By: JESSE Imaging Data Radiologist's Impression: Chest X-Ray 10/06/22 11:27 SINGLE VIEW CHEST CLINICAL HISTORY: Cough FINDINGS: An AP, portable, upright chest radiograph is compared to study dated 09/24/2022. The heart is enlarged. The pulmonary vasculature is noncongested. Chronic interstitial thickening is similar to previous. There is mild bibasilar scarring/atelectasis. No airspace consolidation or large pleural effusion is identified No pneumothorax is seen. The skeletal structures are osteopenic. There are chronic/healed left-sided rib fractures. IMPRESSION: No acute cardiopulmonary abnormality. ACT 112: Negative or not required by law. Electronically signed by: Harman May M.D. 10/06/2022 12:15 PM Abdomen/Pelvis CT 10/06/22 12:35 CT SCAN OF THE ABDOMEN AND PELVIS WITHOUT IV CONTRAST CLINICAL HISTORY: Generalized abdominal pain. COMPARISON STUDY: Abdominal CT dated 07/26/2022. TECHNIQUE: CT scan of the abdomen and pelvis is performed from the lung bases to the proximal femora. Images are reviewed in the axial, sagittal, and coronal planes. IV contrast was not administered for this examination. Note that the examination was performed in suboptimal fashion without oral and IV contrast. The examination is compromised by motion artifact, as well as by streak artifact from the arms which could not be elevated above the abdomen. A dose lowering technique was utilized adhering to the principles of ALARA. CT DOSE: 1261.21 mGy.cm FINDINGS: Lung bases: The heart is enlarged and without pericardial effusion. The coronary arteries and mitral annulus are densely calcified. 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 There is bibasilar scarring/atelectasis. No airspace consol idation or pleural effusion is identified. Liver: The unenhanced liver is normal in size, contour, and attenuation. There is no intrahepatic biliary ductal dilatation. Gallbladder: Unremarkable. Spleen: Normal in size and attenuation. Pancreas: Unremarkable. Adrenal glands: Unremarkable. Kidneys: The unenhanced kidneys demonstrate cortical atrophy and are without hydronephrosis. No renal calculi are identified and there is no ureteral stone. Cortical calcifications are again seen in the right lower pole. A 3.7 cm mass in the upper pole of the right kidney is again noted. This was better assessed on the 07/26/[address] scan. There are numerous bilateral renal cysts which measure up to 8 cm. A retroverted left renal vein is incidentally noted. Abdominal vasculature: The abdominal aorta is normal in course and caliber noting moderate to advanced atherosclerotic calcification. Bowel: There is moderate to advanced colonic diverticulosis without CT evidence of acute diverticulitis. No bowel obstruction is seen. There is rectosigmoid fecal retention. Moderate fecal retention is noted throughout the colon. The appendix is well-visualized and normal. Peritoneum: There is no intraperitoneal free air or abdominal ascites. There is a fat-containing umbilical hernia. Lymphadenopathy: None. Pelvic viscera: The prostate gland is enlarged and heterogeneous. The bladder wall is thickened and trabeculated indicating chronic outlet obstruction. There are numerous small bladder diverticula which measure up to 2.2 cm. There are foci of intraluminal gas within the bladder. A Garcia catheter has been placed. The balloon is inflated within the base of the penis. Skeletal structures: The skeletal structures are osteopenic. There are chronic/healed bilateral rib fractures. Moderate lumbosacral spondylosis is observed. No lytic or blastic lesions are seen. IMPRESSION: 1. Suboptimal examination without oral and IV contrast. The examination is also degraded by streak and motion artifact. 2. A Garcia catheter is in place. The balloon is inflated within the base of the penis. Repositioning is indicated. 3. Prostatomegaly with evidence of chronic bladder outlet obstruction. Foci of gas within the bladder lumen are nonspecific and may be related to ins trumentation. Correlate with urinalysis. 4. Colonic diverticulosis without CT evidence of acute diverticulitis. 5. A 3.7 cm mass lesion is again seen in the upper pole of the right kidney. This was better assessed on the 07/26/[address] scan. 6. 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 7. Rectosigmoid fecal retention and moderate constipation. 8. Additional findings as above. ACT 112: Negative or not required by law. Electronically signed by: Harman May M.D. 10/06/2022 1:08 PM Discharge Plan Visit Data Chief Complaint: Abdominal Pain ED Provider: Nancy Lind Discharge Problem: Sepsis, Acute UTI (urinary tract infection), NADINE (acute kidney injury), Non-ST elevation [place] (NSTEMI), Elevated lactic acid level Forms Stand Alone Forms: [facility] [employer] Prescriptions Prescriptions: No Action amlodipine 2.5 mg tablet 2.5 mg PO QAM pantoprazole 40 mg tablet,delayed release (DR/EC) 40 mg PO 3XWK Rx Instructions: Friday, Friday, Friday finasteride [Proscar] 5 mg tablet 5 mg PO QAM carbidopa-levodopa [Sinemet] 25-100 mg tablet 1 tab PO TID cholecalciferol (vitamin D3) 50 mcg (2,000 unit) capsule 50 mcg PO DAILY acetaminophen 325 mg Tablet 650 mg PO Q4H PRN (Reason: pain or fever) heparin (bovine) 5,000 unit/mL Solution See Rx Instructions .ROUTE .COMPLEX Rx Instructions: 5000 unit subcutaneously twice daily for DVT. Start Date 09/30/22 - End Date 10/10/22 magnesium hydroxide [Milk of Magnesia] 400 mg/5 mL Suspension 30 ml PO Q48H PRN (Reason: Constipation) Rx Instructions: Only give if resident has no bowel movement for 2 days bisacodyl [Dulcolax (bisacodyl)] 10 mg Suppository 10 mg IN Q48H PRN (Reason: Constipation) Rx Instructions: Only give if no bowel movement from Milk of Mag Fleet Enema 19-7 gram/118 mL Enema 118 ml IN Q72H PRN (Reason: Constipation) Rx Instructions: Only give if no bowel movement from Milk of Mag or Dulcolax cyanocobalamin (vitamin B-12) [Vitamin B-12] 1,000 mcg Tablet 1,000 mcg PO DAILY lisinopril 2.5 mg tablet 2.5 mg PO DAILY Metamucil 3.4 gram/5.4 gram Powder 1 tbsp PO DAILY Referrals Referrals: Doyle Pimentel [Primary Care Provider] -
[2022-10-06 12:06] LABS: Hematocrit (blood only) 38.4 % (42.0-52.0); Hemoglobin 13.1 g/dl (14.0-18.0); Mean Corpuscular Hemoglobin 31.8 pg (25.0-34.0); Mean Corpuscular Hgb Conc 34.1 g/dL (32.0-36.0); Mean Corpuscular Volume 93.2 fL (80.0-100.0); Mean Platelet Volume 11.2 fL (9.4-12.4); Platelet Count 242 K/uL (130-400); RDW Coefficient of Variation 13.5 % (11.5-14.5); RDW Standard Deviation 45.8 fL (36.4-46.3); Red Blood Count 4.12 M/uL (4.70-6.10); White Blood Count 38.29 K/ul (4.8-10.8)
[2022-10-06 12:14] LABS: Appearance Urine Cloudy (Clear); Bacteria Urine Automated 2+ (Negative); Bilirubin Urine Negative (Negative); Blood Urine 3+ (Negative); Color Urine Yellow; Epithelial Cell Urine Auto 0-5 /lpf (0-5); Glucose Urine UA Negative (Negative); Ketones Urine Trace (Negative); Leukocyte Esterase Urine 3+ (Negative); Nitrite Urine Negative (Negative); Protein Urine 2+ (Negative); RBC Urine Automated >30 /hpf (0-4); Specific Gravity Urine 1.018 (1.000-1.030); Urobilinogen Urine Negative (Negative); WBC Urine Automated >30 /hpf (0-5); pH Urine 5.5 (4.5-7.5)
[2022-10-06] MEDS ORDERED: CEFEPIME 2,000 MG/20 ML VIAL IV STA (12:14)
[2022-10-06] MEDS ORDERED: DAPTOmycin 550 MG in SYRINGE 0 ML IV ONE (12:14)
[2022-10-06] MEDS ORDERED: SODIUM CHLORIDE 0.9% 1000ML 1,000 ML IV ONE (12:17)
--- NOTE | 2022-10-06 12:17 | XRay Report ---
SINGLE VIEW CHEST CLINICAL HISTORY: Cough FINDINGS: An AP, portable, upright chest radiograph is compared to study dated 09/24/2022. The heart i s enlarged. The pulmonary vasculature is noncongested. Chronic interstitial thickening is similar to previous. There is mild bibasilar scarring/atelectasis. No airspace consolidation or large pleural ef fusion is identified No pneumothorax is seen. The skeletal structures are osteopenic. There are chron ic/healed left-sided rib fractures. IMPRESSION: No acute cardiopulmonary abnormality. ACT 112: Negative or not required by law. Electronically signed by: Harman May M.D. 10/06/2022 12:15 PM
[2022-10-06 12:20] LABS: Basophils # (auto) 0.07 K/uL (0-0.2); Basophils % (auto) 0.2 %; Immature Granulocytes # (auto) 1.15 K/uL (0.01-0.20); Lymphocytes # (auto) 0.31 K/uL (1.2-3.4); Lymphocytes % (auto) 0.8 %; Monocytes # (auto) 1.27 K/uL (0.11-0.59); Monocytes % (auto) 3.3 %; Neutrophils # (auto) 35.49 K/uL (1.40-6.50); Neutrophils % (auto) 92.7 %
--- NOTE | 2022-10-06 13:10 | CT Scan Report ---
CT SCAN OF THE ABDOMEN AND PELVIS WITHOUT IV CONTRAST CLINICAL HISTORY: Generalized abdominal pain. COMPARISON STUDY: Abdominal CT dated 07/26/2022. TECHNIQUE: CT scan of the abdomen and pelvis is performed from the lung bases to the proximal femora. Images are reviewed in the axial, sagittal, and coronal planes. IV contrast was not administered for this examination. Note that the examination was performed in suboptimal fashion without oral and IV contrast. The examination is compromised by motion artifact, as well as by streak artifact from the a nicholas which could not be elevated above the abdomen. A dose lowering technique was utilized adhering to the principles of ALARA. CT DOSE: 1261.21 mGy.cm FINDINGS: Lung bases: The heart is enlarged and without pericardial effusion. The coronary arteries and mitral annulus are densely calcified. There is aneurysmal dilatation of the visualized ascending thoracic ao rta which measures up to 4.3 cm in diameter. There is bibasilar scarring/atelectasis. No airspace con solidation or pleural effusion is identified. Liver: The unenhanced liver is normal in size, contour, and attenuation. There is no intrahepatic taj iary ductal dilatation. Gallbladder: Unremarkable. Spleen: Normal in size and attenuation. Pancreas: Unremarkable. Adrenal glands: Unremarkable. Kidneys: The unenhanced kidneys demonstrate cortical atrophy and are without hydronephrosis. No renal calculi are identified and there is no ureteral stone. Cortical calcifications are again seen in the right lower pole. A 3.7 cm mass in the upper pole of the right kidney is again noted. This was ila r assessed on the 07/26/[address] scan. There are numerous bilateral renal cysts which me asure up to 8 cm. A retroverted left renal vein is incidentally noted. Abdominal vasculature: The abdominal aorta is normal in course and caliber noting moderate to advance d atherosclerotic calcification. Bowel: There is moderate to advanced colonic diverticulosis without CT evidence of acute diverticulit is. No bowel obstruction is seen. There is rectosigmoid fecal retention. Moderate fecal retention is noted throughout the colon. The appendix is well-visualized and normal. Peritoneum: There is no intraperitoneal free air or abdominal ascites. There is a fat-containing umbi lical hernia. Lymphadenopathy: None. Pelvic viscera: The prostate gland is enlarged and heterogeneous. The bladder wall is thickened and t rabeculated indicating chronic outlet obstruction. There are numerous small bladder diverticula which measure up to 2.2 cm. There are foci of intraluminal gas within the bladder. A Garcia catheter has be en placed. The balloon is inflated within the base of the penis. Skeletal structures: The skeletal structures are osteopenic. There are chronic/healed bilateral rib f ractures. Moderate lumbosacral spondylosis is observed. No lytic or blastic lesions are seen. IMPRESSION: 1. Suboptimal examination without oral and IV contrast. The examination is also degraded by streak an d motion artifact. 2. A Garcia catheter is in place. The balloon is inflated within the base of the penis. Repositioning is indicated. 3. Prostatomegaly with evidence of chronic bladder outlet obstruction. Foci of gas within the bladder lumen are nonspecific and may be related to instrumentation. Correlate with urinalysis. 4. Colonic diverticulosis without CT evidence of acute diverticulitis. 5. A 3.7 cm mass lesion is again seen in the upper pole of the right kidney. This was better assessed on the 07/26/[address] scan. 6. 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 7. Rectosigmoid fecal retention and moderate constipation. 8. Additional findings as above. ACT 112: Negative or not required by law. Electronically signed by: Harman May M.D. 10/06/2022 1:08 PM
[2022-10-06 13:24] LABS: Bilirubin Direct 0.2 mg/dl (0-0.2)
[2022-10-06 13:32] LABS: Magnesium 1.8 mg/dl (1.7-2.4)
[2022-10-06 13:51] LABS: Troponin I High Sensitivity 1026.6 pg/ml (0-20)
--- NOTE | 2022-10-06 14:47 | History & Physical Report ---
Date of Service October 06, 2022 Assessment & Plan (1) Severe sepsis: Plan: -Admit to the PCU on tele -Currently stable -Was noted to be febrile at 103 last night, hypotensive with systolics in the 80's today -Source is most likely his urine as his thurston was not properly positioned and was not adequately draining, no signs of focal consolidation on CXR, no recent GI symptoms, no signs of wound on full skin exam, no meningitic symptoms -S/P a dose of cefepime, daptomycin, and 1.5 L NSS in the ED -Will continue dapto for recent urine cultures on last admission and cefepime to keep coverage broad at this time >Will order Daptomycin as q48h for now will current renal function with next dose on 10/08; could increase the frequency if renal function improves tomorrow -Will give 1L LR bolus to complete his sepsis bolus then continue on maintenance fluids -Initial lactate elevated at 2.2, STAT repeat ordered on admission -SQ heparin for DVT PPX -Will see if he passes dysphagia screen prior to ordering diet -AM CBC, CMP, Mag, PT/INR (2) NADINE (acute kidney injury): Plan: -Cr today at 2.39, baseline is near 1.0 -Likely multifactorial including mal-positioned thurston, current sepsis, recent hypotension with continued antihypertensives -No sign of obstruction on CT today -Continue IV fluid resuscitation and hold lisinopril -Avoid nephrotoxic agents and renally dose medications (3) Elevated troponin: Plan: -Initial high sen trop elevated at 1053, two hour repeat down to 653 -Patient has been asymptomatic and without acute ST segment or T-wave changes -While this most likely representes demand ischemia, the patient was septic on initial presentation during his last admission without a trop elevation -For now will give him a STAT 324 aspirin, continue daily 81 mg Aspirin, restart his beta ambar, and obtain a repeat TTE tomorrow -Continue to monitor on tele and trend trop q6h overnight (4) BPH w urinary obs/LUTS: Plan: -Thurston cath is being exchanged as previous was mal-positioned and likely infected -Will restart his finasteride that was discontinued at [facility] -Monitor intake and output q6h (5) Superficial thrombophlebitis: Plan: -Previously diagnosed in April of 2021, was started on Eliquis in April of 2021 as well -Eliquis was recently stopped as he had developed hematuria at [facility] since last admission -Can continue to hold eliquis as he completed greater than 6 months of treatment -Continue SQ heparin for DVT PPX and am starting him on daily aspirin for elevated trop (6) Hypertension: Plan: -Currently stable after initial fluid bolus in the ED -Will hold both amlodipine and lisinopril for hypotension, hold lisinopril for NADINE as well -Monitor BP while off amlodipine/lisinopril and while restarting finasteride and metoprolol -If BP is stable would likely DC his lisinopril and amlodipine prior to discharge (7) Parkinson disease: Plan: -Continue Carbidopa-levodopa -Turn and position q2h Plan The patient was discussed with Dr. Ferro at the time of the admission History of Present Illness Chief Complaint: Hypotension, abd pain, SOB Primary Care Provider: [facility] Onel Davenport is an 87 year old male with a PMH significant for BPH with LUTS and recurrent UTI's now with chronic thurston cath, HTN, HLP, CKD, Parkinson's disease with dementia, and superficial phlebitis (on Eliquis) who presented to the [facility] ED from [facility] via EMS due to SOB, hypotension, and lower abd pain. In the ED the patient was noted to be hypotensive at 88/53 but otherwise stable. Labs were significant for 38 with left shift of 35, immature granulocyte count of 1.15, cr of 2.39 (baseline is near 1.0), lactate of 2.2, total bili of 1.1, initial high sen trop of 1026, procal of 34, UA suggestive of UTI. Chest xray was read as "No acute cardiopulmonary abnormality.". CT of the abd/pelvis wo con was read as "1. Suboptimal examination without oral and IV contrast. The examination is also degraded by streak and motion artifact. 2. A Thurston catheter is in place. The balloon is inflated within the base of the penis. Repositioning is indicated. 3. Prostatomegaly with evidence of chronic bladder outlet obstruction. Foci of gas within the bladder lumen are nonspecific and may be related to instrumentation. Correlate with urinalysis. 4. Colonic diverticulosis without CT evidence of acute diverticulitis. 5. A 3.7 cm mass lesion is again seen in the upper pole of the right kidney. This was better assessed on the 07/26/[address] scan. 6. 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 7. Rectosigmoid fecal retention and moderate constipation.". Prior to admission the patient was given a dose co Cefepime, a dose of Daptomycin, and 1.5L NSS bolus. Per chart review, the patient was recently admitted to [facility] from 09/20-09/27 due to Urosepsis. Urine urine cultures grew Coag negative staph and VRE, both negative to Daptomycin. He was initially started on Cefepime at admission but switched to Daptomycin with culture results and sensitivities. He underwent PICC placement after a second round of negative blood cultures and discharged with plans to complete his course of Daptomycin on 09/29. He was evaluated by urology for urinary retention and had a thurston cath placed on admission. Urology recommended keeping the thurston in on discharge with plans to follow up in the clinic outpatient. His admission was complicated by symptomatic PVC's with short runs of NSVT. He was started on PO metoprolol tartrate 25 mg BID with improvement of symptoms and was discharged on the same dose. At the time of the exam the patient was lying in bed in no acute distress with his sitting bedside, history was mainly obtained from the due to the patient's baseline mental status. She states that the patient has been in the senior living part of [facility] since his last admission. He completed his course of antibiotics as prescribed and had been doing well. She was called this am and told he was febrile and hypotensive, which is why he was brought to the ED. When asked, the patient denies current chest pain, SOB, abd pain, nausea, vomiting, diarrhea, LE swelling, and recent trauma. His states that the patient had an episode where he accidentally pulled on his thurston cath while standing a few days ago, which is likely what caused it to be misaligned. The patient has been having a non-productive cough for the past few days as well. We discussed code status again, after talking about it more after his last discharge, the patient and his think that DNR/DNI is the best option as his quality of life would not be good if he would need CPR or intubation. I was able to speak with the nursing staff at [facility] to obtain more information. They confirm he completed his course of Daptomycin. Last night he spiked a fever of 103F, he was given a dose of Ceftriaxone last night. This am he was hypotensive with systolics in the 80 and appeared more weak than baseline. They deny recent diarrhea being reported. They confirm that the metoprolol he was discharged on was originally on his med list at [facility], but it was discontinued for an unknown reason, they will call back if they can determine the reason. His eliquis was on hold as he had developed hematuria. He has been on SQ heparin since for DVT PPX. They confirmed that he was originally prescribed the Eliquis on May [id number]. They also confirmed that his metoprolol and finasteride had been held due to soft BP a week ago but was continued on the lisinopril and amlodipine. Please refer to Dr. Ferro's attestation for any changes to the treatment plan Allergies Allergy/AdvReac Type Severity Reaction Status Date / Time No Known Allergies Allergy Verified 06/20/22 09:01 Home Medications Medication Instructions Recorded Confirmed Type amlodipine 2.5 mg tablet 2.5 mg PO QAM 12/04/21 10/06/22 History carbidopa 25 mg-levodopa 100 mg 1 tab PO TID 12/04/21 10/06/22 History tablet (Sinemet) cholecalciferol (vitamin D3) 50 50 mcg PO DAILY 12/04/21 10/06/22 History mcg (2,000 unit) capsule finasteride 5 mg tablet (Proscar) 5 mg PO QAM 12/04/21 10/06/22 History pantoprazole 40 mg tablet,delayed 40 mg PO 3XWK 12/04/21 10/06/22 History release cyanocobalamin (vitamin B-12) 1,000 mcg PO DAILY 01/21/22 10/06/22 History 1,000 mcg tablet (Vitamin B-12) lisinopril 2.5 mg tablet 2.5 mg PO DAILY 07/25/22 10/06/22 History psyllium husk 3.4 gram/5.4 gram 1 tbsp PO DAILY 07/25/22 10/06/22 History oral powder (Metamucil) acetaminophen 325 mg tablet 650 mg PO Q4H PRN pain or fever 10/06/22 10/06/22 History bisacodyl 10 mg rectal suppository 10 mg KS Q48H PRN Constipation 10/06/22 10/06/22 History (Dulcolax (bisacodyl)) heparin (bovine) 5,000 unit/mL See Rx Instructions .Route .COMPLEX 10/06/22 10/06/22 History injection solution magnesium hydroxide 400 mg/5 mL 30 ml PO Q48H PRN Constipation 10/06/22 10/06/22 History oral suspension (Milk of Magnesia) sodium phosphates 19 gram-7 118 ml KS Q72H PRN Constipation 10/06/22 10/06/22 History gram/118 mL enema (Fleet Enema) Past Med/Surg History Medical History (Updated 10/06/22 @ 16:10 by Vijay Casarez PA-C) Acute dehydration Aortic stenosis BPH w urinary obs/LUTS Dementia Diverticulosis of large intestine without perforation or abscess without bleeding Dysarthria and anarthria Dysphagia Dysphonia Hearing deficit MARSHALL left History of basal cell carcinoma History of blood clots superficial - LLE - 2 years ago, RLE - approx 1 year ago? History of SCC (squamous cell carcinoma) of skin Hyperlipidemia Hypertension 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 stage III Irregular heart rhythm follows w/ Dr. Gayle Lab test negative for COVID-19 virus Mitral regurgitation Muscle spasm of back Other abnormalities of gait and mobility Parkinson disease Poor historian PVC (premature ventricular contraction) Resides in senior living facility current resident of [facility] Sepsis Weakness Weakness Surgical History History of colonoscopy History of eye surgery Rt eye History of knee surgery Rt Status post Mohs surgery Family History Other Adopted Social History Smoking Status: Former smoker Second Hand Exposure: No; Do You Dip or Chew Tobacco: No; Hx Alcohol Use: Yes Alcohol type: beer, wine and hard liquor Alcohol Intake Frequency: Monthly or Less Hx Substance Use: No Preferred Language: Indian Communication Ability: Effective 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 current occupational status: retired Other Information That Helps Us Care for You: No Feels Safe at Home: Yes Safety Concerns: Feels Safe At This Time Assistive Devices: Walker Physical Exam Physical Exam: Physical Exam: General: In no acute distress, stated age, he is ill appearing HEENT: Normocephalic, atraumatic, no scleral icterus, pupils around round, symmetrical, and reactive to light, dry mucus membranes, trachea midline, no thyromegaly Chest/Pulm: No respiratory distress, symmetrical chest expansion, scattered expiratory wheezing in the lower lung khanna Cardiac: RRR, systolic murmur noted Abdomen: Negative for ascites and bruising, normoactive bowel sounds, soft, non-tender to palpation throughout : Previous thurston cath is in place without sings of drainage around the tubing, currently draining cloudy, yellow urine Musculoskeletal: Symmetrical and without signs of acute trauma, upper and lower extremities with full ROM, no atrophy, spasticity, or flaccidity Extremities: Radial, dorsalis pedis, and posterior tibial pulses are intact and symmetrical, no edema noted in the BL LE's Skin: Warm, dry, no rashes , lesions, or scars noted Neuro: Alert and oriented to person on,, no focal defects, CN II-XII tested and intact, baseline masked facies and slurred speech with Parkinson's noted Psych: No acute distress, calm and cooperative during the exam Results & Data Results & Data Vital Signs (Past 12 Hours) Vital Signs Temp Pulse Resp BP Pulse Ox O2 Del Method 10/06/22 14:30 87 24 95 10/06/22 14:30 109/57 L 10/06/22 14:20 85 23 96 10/06/22 14:15 116/60 10/06/22 14:15 82 20 96 10/06/22 14:10 81 20 96 10/06/22 14:00 83 20 96 10/06/22 14:00 97/59 L 10/06/22 13:50 82 20 97 10/06/22 13:45 82 20 96 10/06/22 13:45 111/63 10/06/22 13:40 82 20 97 10/06/22 13:30 83 20 96 10/06/22 13:30 107/55 L 10/06/22 13:20 79 20 99 10/06/22 13:15 106/55 L 10/06/22 13:15 80 20 97 10/06/22 13:10 79 20 96 10/06/22 13:00 82 20 96 10/06/22 13:00 103/55 L 10/06/22 12:52 82 20 97 10/06/22 12:52 109/56 L 10/06/22 12:51 82 20 97 10/06/22 12:40 81 20 98 10/06/22 12:30 80 20 98 10/06/22 12:30 114/59 L 10/06/22 12:20 77 20 96 10/06/22 12:15 74 20 95 10/06/22 12:15 108/59 L 10/06/22 12:10 77 20 95 10/06/22 12:00 75 20 10/06/22 12:00 110/58 L 10/06/22 11:50 74 20 10/06/22 11:45 95/54 L 10/06/22 11:45 77 20 98 10/06/22 11:40 77 28 H 98 10/06/22 11:30 77 20 96 10/06/22 11:30 88/53 L 10/06/22 11:20 81 20 97 10/06/22 11:15 79 20 98 10/06/22 11:15 89/55 L 10/06/22 11:30 95 Room Air 10/06/22 10:56 95 Room Air 10/06/22 11:10 74 20 97 10/06/22 11:00 83 20 96 10/06/22 11:00 103/57 L 10/06/22 10:58 88 20 97 10/06/22 11:03 89 10/06/22 10:57 36.8 C 15 10/06/22 10:57 36.8 C 83 14 109/53 L 95 Room Air Laboratory Results Abnormal lab results 10/06/22 10/06/22 10/06/22 Range/Units 11:08 11:08 11:08 WBC 38.29 H* (4.8-10.8) K/ul RBC 4.12 L (4.70-6.10) M/uL Hgb 13.1 L (14.0-18.0) g/dl Hct 38.4 L (42.0-52.0) % Neut # (Auto) 35.49 H (1.40-6.50) K/uL Lymph # (Auto) 0.31 L (1.2-3.4) K/uL [place] # (Auto) 1.27 H (0.11-0.59) K/uL Immature Gran # (Auto) 1.15 H (0.01-0.20) K/uL BUN 49 H (6-23) mg/dl Creatinine 2.39 H (0.6-1.4) mg/dl BUN/Creatinine Ratio 20.5 H (10-20) Glucose 122 H (70-99(Fasting)) mg/dl Lactate 2.2 H* (0.4-2.0) mmol/L Total Bilirubin 1.1 H (0.2-1.0) mg/dl Troponin I High Sens 1026.6 H* (0-20) pg/ml Procalcitonin (0-0.5) ng/ml Urine Appearance (Clear) Urine Protein (Negative) Urine Ketones (Negative) Urine Blood (Negative) Ur Leukocyte Esterase (Negative) Urine WBC (Auto) (0-5) /hpf Urine RBC (Auto) (0-4) /hpf Urine Bacteria (Auto) (Negative) 10/06/22 10/06/22 Range/Units 11:08 11:55 WBC (4.8-10.8) K/ul RBC (4.70-6.10) M/uL Hgb (14.0-18.0) g/dl Hct (42.0-52.0) % Neut # (Auto) (1.40-6.50) K/uL Lymph # (Auto) (1.2-3.4) K/uL [place] # (Auto) (0.11-0.59) K/uL Immature Gran # (Auto) (0.01-0.20) K/uL BUN (6-23) mg/dl Creatinine (0.6-1.4) mg/dl BUN/Creatinine Ratio (10-20) Glucose (70-99(Fasting)) mg/dl Lactate (0.4-2.0) mmol/L Total Bilirubin (0.2-1.0) mg/dl Troponin I High Sens (0-20) pg/ml Procalcitonin 34.00 H (0-0.5) ng/ml Urine Appearance Cloudy A (Clear) Urine Protein 2+ H (Negative) Urine Ketones Trace H (Negative) Urine Blood 3+ H (Negative) Ur Leukocyte Esterase 3+ H (Negative) Urine WBC (Auto) >30 H (0-5) /hpf Urine RBC (Auto) >30 H (0-4) /hpf Urine Bacteria (Auto) 2+ H (Negative) Diagnostic Findings Chest X-Ray 10/06/22 11:27 SINGLE VIEW CHEST CLINICAL HISTORY: Cough FINDINGS: An AP, portable, upright chest radiograph is compared to study dated 09/24/2022. The heart is enlarged. The pulmonary vasculature is noncongested. C hronic interstitial thickening is similar to previous. There is mild bibasilar scarring/atelectasis. No airspace consolidation or large pleural effusion is identified No pneumothorax is seen. The skeletal structures are osteopenic. There are chronic/healed left-sided rib fractures. IMPRESSION: No acute cardiopulmonary abnormality. ACT 112: Negative or not required by law. Electronically signed by: Harman May M.D. 10/06/2022 12:15 PM Abdomen/Pelvis CT 10/06/22 12:35 CT SCAN OF THE ABDOMEN AND PELVIS WITHOUT IV CONTRAST CLINICAL HISTORY: Generalized abdominal pain. COMPARISON STUDY: Abdominal CT dated 07/26/2022. TECHNIQUE: CT scan of the abdomen and pelvis is performed from the lung bases to the proximal femora. Images are reviewed in the axial, sagittal, and coronal planes. IV contrast was not administered for this examination. Note that the examination was performed in suboptimal fashion without oral and IV contrast. The examination is compromised by motion artifact, as well as by streak artifact from the arms which could not be elevated above the abdomen. A dose lowering technique was utilized adhering to the principles of ALARA. CT DOSE: 1261.21 mGy.cm FINDINGS: Lung bases: The heart is enlarged and without pericardial effusion. The coronary arteries and mitral annulus are densely calcified. There is aneurysmal dila tation of the visualized ascending thoracic aorta which measures up to 4.3 cm in diameter. There is bibasilar scarring/atelectasis. No airspace consolidation or pleural effusion is identified. Liver: The unenhanced liver is normal in size, contour, and attenuation. There is no intrahepatic biliary ductal dilatation. Gallbladder: Unremarkable. Spleen: Normal in size and attenuation. Pancreas: Unremarkable. Adrenal glands: Unremarkable. Kidneys: The unenhanced kidneys demonstrate cortical atrophy and are without hydronephrosis. No renal calculi are identified and there is no ureteral stone. Cortical calcifications are again seen in the right lower pole. A 3.7 cm mass in the upper pole of the right kidney is again noted. This was better assessed on the 07/26/[address] scan. There are numerous bilateral renal cysts which measure up to 8 cm. A retroverted left renal vein is incidentally noted. Abdominal vasculature: The abdominal aorta is normal in course and caliber noting moderate to advanced atherosclerotic calcification. Bowel: There is moderate to advanced colonic diverticulosis without CT evidence of acute diverticulitis. No bowel obstruction is seen. There is rectosigmoid fecal retention. Moderate fecal retention is noted throughout the colon. The appendix is well-visualized and normal. Peritoneum: There is no intraperitoneal free air or abdominal ascites. There is a fat-containing umbilical hernia. Lymphadenopathy: None. Pelvic viscera: The prostate gland is enlarged and heterogeneous. The bladder wall is thickened and trabeculated indicating chronic outlet obstruction. There are numerous small bladder diverticula which measure up to 2.2 cm. There are foci of intraluminal gas within the bladder. A Thurston catheter has been placed. The balloon is inflated within the base of the penis. Skeletal structures: The skeletal structures are osteopenic. There are chronic/healed bilateral rib fractures. Moderate lumbosacral spondylosis is observed. No lytic or blastic lesions are seen. IMPRESSION: 1. Suboptimal examination without oral and IV contrast. The examination is also degraded by streak and motion artifact. 2. A Thurston catheter is in place. The balloon is inflated within the base of the penis. Repositioning is indicated. 3. Prostatomegaly with evidence of chronic bladder outlet obstruction. Foci of gas within the bladder lumen are nonspecific and may be related to instrumentation. Correlate with urinalysis. 4. Colonic diverticulosis without CT evidence of acute diverticulitis. 5. A 3.7 cm mass lesion is again seen in the upper pole of the right kidney. This was better assessed on the 07/26/[address] scan. 6. 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 7. Rectosigmoid fecal retention and moderate constipation. 8. Additional findings as above. ACT 112: Negative or not required by law. Electronically signed by: Harman May M.D. 10/06/2022 1:08 PM ECG Additional Comments: Sinus rhythm with occasional Premature ventricular complexes Otherwise normal ECG When compared with ECG of 21-SEP-2022 12:24, Premature ventricular complexes are now Present Code Status & VTE Plan Code Status DNR/DNI Supervising Physician Co-Signing Physician Notes I personally saw and examined the patient. I verified all tyler points and agree with Vijay Casarez PA-C with the following exceptions and/or additions: 87 year old male presents to the ER with altered mental state. O/E Alert and orientated to person only, Ill appearing, PERRL, HS RRR, no murmurs, Chest CTAB, Ando SNT, no areas of cellulitis A/P Severe sepsis - source urine, daptomycin and cefepime to cover prior urine cultures including VRE. Lactate 2.2 -> 2.0. Hold antihypertensives except metoprolol. Urinary retention - thurston catheter displaced - unclear if when it was placed or pulled in this position. Pt has history of pulling out catheter. Thurston catheter changed in the ER. PG Care Time/CCT Total # of Minutes Spent Total Time Spent with Patient: Total time spent is greater than 50% in coordination of care (as documented) at patient's floor/unit and/or counseling patient: [place] [address] INT INP/OBS CARE 3/75MIN Patient Type Established Medical Decision Making High Complexity Diagnoses Severe sepsis A41.9; R65.20 NADINE (acute kidney injury) N17.9 Elevated troponin R77.8 BPH w urinary obs/LUTS N40.1; N13.8 Superficial thrombophlebitis I80.9 Hypertension I10 Parkinson disease G20
[2022-10-06] MEDS ORDERED: LACTATED RINGER'S 1,000 ML IV ONE (15:02)
[2022-10-06] MEDS ORDERED: ASPIRIN CHEW 324 MG PO STA (15:51)
[2022-10-06] MEDS ORDERED: METOPROLOL TARTRATE 25 MG TAB PO STA (15:55)
[2022-10-06 15:57] LABS: Appearance Urine Turbid (Clear); Bacteria Urine Automated 1+ (Negative); Bilirubin Urine Negative (Negative); Blood Urine 3+ (Negative); Color Urine Orange; Epithelial Cell Urine Auto 0-5 /lpf (0-5); Glucose Urine UA Negative (Negative); Ketones Urine Trace (Negative); Leukocyte Esterase Urine 3+ (Negative); Nitrite Urine Positive (Negative); Protein Urine 2+ (Negative); RBC Urine Automated >30 /hpf (0-4); Specific Gravity Urine 1.019 (1.000-1.030); Urobilinogen Urine Negative (Negative); WBC Urine Automated >30 /hpf (0-5)
[2022-10-06] MEDS ORDERED: CARBIDOPA/LEVODOPA 25/100MG TAB PO STA (16:06)
[2022-10-06 16:15] LABS: Troponin I High Sensitivity 653.9 pg/ml (0-20)
[2022-10-06] MEDS ORDERED: ACETAMINOPHEN 325 MG TAB PO PRN (16:52)
[2022-10-06] MEDS ORDERED: MAGNESIUM HYDROXIDE SUSP 30 ML UDC PO PRN (16:52)
[2022-10-06] MEDS ORDERED: LACTATED RINGER'S 1,000 ML IV SCH (16:52)
[2022-10-06] MEDS ORDERED: Patient's HEIGHT &/or WEIGHT Needed SCH (17:00)
[2022-10-06] MEDS: METOPROLOL TARTRATE 25 MG TAB PO SCH (19:53)
[2022-10-06] MEDS: CARBIDOPA/LEVODOPA 25/100MG TAB PO SCH (20:46)
[2022-10-06] MEDS: HEPARIN SOD 5,000 UNIT/0.5 ML VIAL SQ SCH (20:46)
[2022-10-06] MEDS ORDERED: CEFEPIME 1,000 MG in SYRINGE 0 ML IV SCH (23:30)
[2022-10-07] MEDS ORDERED: CEFEPIME 2,000 MG in SYRINGE 0 ML IV SCH
[2022-10-07 07:30] LABS: Basophils # (auto) 0.06 K/uL (0-0.2); Basophils % (auto) 0.3 %; Eosinophils # (auto) 0.17 K/uL (0-0.50); Eosinophils % (auto) 0.9 %; Hematocrit (blood only) 33.4 % (42.0-52.0); Hemoglobin 11.1 g/dl (14.0-18.0); Immature Granulocytes # (auto) 0.25 K/uL (0.01-0.20); Immature Granulocytes % (auto) 1.3 %; Lymphocytes # (auto) 0.66 K/uL (1.2-3.4); Lymphocytes % (auto) 3.3 %; Mean Corpuscular Hemoglobin 31.8 pg (25.0-34.0); Mean Corpuscular Hgb Conc 33.2 g/dL (32.0-36.0); Mean Corpuscular Volume 95.7 fL (80.0-100.0); Monocytes # (auto) 1.27 K/uL (0.11-0.59); Monocytes % (auto) 6.4 %; Neutrophils # (auto) 17.48 K/uL (1.40-6.50); Neutrophils % (auto) 87.8 %; Platelet Count 179 K/uL (130-400); RDW Coefficient of Variation 13.8 % (11.5-14.5); RDW Standard Deviation 48.7 fL (36.4-46.3); Red Blood Count 3.49 M/uL (4.70-6.10); White Blood Count 19.89 K/ul (4.8-10.8)
[2022-10-07 07:38] LABS: Albumin Globulin Ratio 1.3 (0.9-2); Albumin Level 3.2 gm/dl (3.4-5.0); BUN Creatinine Ratio 29.1 (10-20); Bilirubin,Total 0.7 mg/dl (0.2-1.0); Creatinine Clr Calc Pharmacy 34.5 ml/min; Est GFR (African American) 51.5 ml/min; Est GFR (Non-African American) 44.5 ml/min; Globulin 2.5 gm/dl (2.5-4.0); Magnesium 1.9 mg/dl (1.7-2.4); Potassium 4.4 mmol/L (3.5-5.1); Total Protein 5.7 gm/dl (6.0-8.3)
[2022-10-07 07:41] LABS: INR 1.1 (0.9-1.1); Prothrombin Time 11.9 Seconds (9.0-12.0)
[2022-10-07 07:55] LABS: Troponin I High Sensitivity 308.2 pg/ml (0-20)
[2022-10-07] MEDS: HEPARIN SOD 5,000 UNIT/0.5 ML VIAL SQ SCH ×2 (09:14→19:53)
[2022-10-07] MEDS: ASPIRIN 81 MG ECTAB PO SCH (09:14)
[2022-10-07] MEDS: FINASTERIDE 5 MG TAB PO SCH (09:14)
[2022-10-07] MEDS: PANTOprazole 40 MG TAB PO SCH (09:14)
[2022-10-07] MEDS: METOPROLOL TARTRATE 25 MG TAB PO SCH ×2 (09:14→19:52)
[2022-10-07] MEDS: CARBIDOPA/LEVODOPA 25/100MG TAB PO SCH ×3 (09:14→19:53)
[2022-10-07] MEDS: PSYLLIUM or GUAR GUM FIBER POWDER PACKET PO SCH (09:15)
[2022-10-07] MEDS: CEFEPIME 2,000 MG in SYRINGE 0 ML IV SCH ×2 (10:37→22:05)
--- NOTE | 2022-10-07 11:49 | Infectious Disease Consult ---
Date of Consultation October 07, 2022 Assessment & Plan (1) Severe sepsis: (2) Acute UTI (urinary tract infection): Plan 87 yo M with BPH with urinary obstruction, recurrent UTIs, HTN, CKD, Parkinson's disease with dementia who presented on 10/06 with fever, hypotension, found to have sepsis likely secondary to urinary source with malpositioned thurston catheter with balloon inflated within base of penis. Of note, he was recently admitted from 09/20 - 09/27 for generalized weakness, confusion, fevers, and treated for a UTI. UCx grew VRE and coag neg Staph, and he was treated with daptomycin to complete a 7 day course through 09/29. A thurston catheter was placed, with plan to follow-up with Urology as an outpatient for monthly catheter changes. He reportedly improved post-discharge. On presentation 10/06, pt was afebrile, hypotensive to 88/53. Labs showed WBC 38.29, Cr 2.39, lactate 2.2, procalcitonin 34. UA with >30 WBCs. CXR showed no acute findings. CT A/P without IV contrast showed a thurston catheter with balloon inflated within base of penis, requiring repositioning. Per pt's , the pt had an episode where he accidentally pulled on his thurston cath a few days prior, which likely caused it to be misaligned. Pt was started on dapto, cefepime for sepsis. Thurston was exchanged. WBC downtrended to 20 today. UCx growing GNRs. Pt likely with sepsis from urinary source secondary to dislodged thurston catheter. Micro: 10/06 UCx: 20K GNRs 10/06 UCx: 60K GNRs 10/06 BCx x2: pending 10/06 UCx: >100K GNRs Abx: Dapto 10/06 - present Cefepime 10/06 - present Problems: #GNR UTI #Sepsis / urinary source #Malpositioned thurston Recommendations: -Discontinued daptomycin -Continue renally dosed cefepime -Follow-up UCx for identification and susceptibilities of GNR Will continue to follow. Please page [facility] with further questions. Consultation Information This patient recommendation is based on a telemedicine consult request which was completed asynchronously through chart review and information provided by the primary physician. The patient was not seen or examined today. The evaluation is consultative in nature and all patient care and treatment decisions can either be accepted or rejected by the patient's primary hospital-based treating physician using their own independent medical judgment for their patient. Instant Printer Operator contact information: Please call [facility] [phone]. (Phone Number For Physician Use Only) Time Spent Reviewing Chart: 31+ minutes History of Present Illness Reason for Consultation: UTI, sepsis Attending Physician: Blake Wolf MD History of Present Illness 87 yo M with BPH with urinary osbtruction, recurrent UTIs, HTN, CKD, Parkinson's disease with dementia who presented on 10/06 with shortness of breath, hypotension, lower abd pain, fever. Of note, he was recently admitted from 09/20 - 09/27 for generalized weakness, confusion, fevers, and treated for a UTI. UCx grew VRE and coag neg Staph, and he was treated with daptomycin to complete a 7 day course through 09/29. A thurston catheter was placed, with plan to follow-up with Urology as an outpatient for monthly catheter changes. He reportedly improved post-discharge. On presentation 10/06, pt was afebrile, hypotensive to 88/53. Labs showed WBC 38.29, Cr 2.39, lactate 2.2, procalcitonin 34. UA with >30 WBCs. CXR showed no acute findings. CT A/P without IV contrast showed a thurston catheter with balloon inflated within base of penis, requiring repositioning. Per pt's , the pt had an episode where he accidentally pulled on his thurston cath a few days prior, which likely caused it to be misaligned. Pt was started on dapto, cefepime for sepsis. Thurston was replaced. WBC downtrended to 20 today. UCx growing GNRs. Allergies Allergy/AdvReac Type Severity Reaction Status Date / Time No Known Allergies Allergy Verified 06/20/22 09:01 Home Medications Medication Instructions Recorded Confirmed Type amlodipine 2.5 mg tablet 2.5 mg PO QAM 12/04/21 10/06/22 History carbidopa 25 mg-levodopa 100 mg 1 tab PO TID 12/04/21 10/06/22 History tablet (Sinemet) cholecalciferol (vitamin D3) 50 50 mcg PO DAILY 12/04/21 10/06/22 History mcg (2,000 unit) capsule finasteride 5 mg tablet (Proscar) 5 mg PO QAM 12/04/21 10/06/22 History pantoprazole 40 mg tablet,delayed 40 mg PO 3XWK 12/04/21 10/06/22 History release cyanocobalamin (vitamin B-12) 1,000 mcg PO DAILY 01/21/22 10/06/22 History 1,000 mcg tablet (Vitamin B-12) lisinopril 2.5 mg tablet 2.5 mg PO DAILY 07/25/22 10/06/22 History psyllium husk 3.4 gram/5.4 gram 1 tbsp PO DAILY 07/25/22 10/06/22 History oral powder (Metamucil) acetaminophen 325 mg tablet 650 mg PO Q4H PRN pain or fever 10/06/22 10/06/22 History bisacodyl 10 mg rectal suppository 10 mg WV Q48H PRN Constipation 10/06/22 10/06/22 History (Dulcolax (bisacodyl)) heparin (bovine) 5,000 unit/mL See Rx Instructions .Route .COMPLEX 10/06/22 10/06/22 History injection solution magnesium hydroxide 400 mg/5 mL 30 ml PO Q48H PRN Constipation 10/06/22 10/06/22 History oral suspension (Milk of Magnesia) sodium phosphates 19 gram-7 118 ml WV Q72H PRN Constipation 10/06/22 10/06/22 History gram/118 mL enema (Fleet Enema) Patient History Medical History (Updated 10/06/22 @ 16:10 by Vijay Casarez PA-C) Acute dehydration Aortic stenosis BPH w urinary obs/LUTS Dementia Diverticulosis of large intestine without perforation or abscess without bleeding Dysarthria and anarthria Dysphagia Dysphonia Hearing deficit [place] left History of basal cell carcinoma History of blood clots superficial - LLE - 2 years ago, RLE - approx 1 year ago? History of SCC (squamous cell carcinoma) of skin Hyperlipidemia Hypertension 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 stage III Irregular heart rhythm follows w/ Dr. Gayle Lab test negative for COVID-19 virus Mitral regurgitation Muscle spasm of back Other abnormalities of gait and mobility Parkinson disease Poor historian PVC (premature ventricular contraction) [facility] current resident of [facility] Sepsis Weakness Weakness Surgical History History of colonoscopy History of eye surgery Rt eye History of knee surgery Rt Status post Mohs surgery Family History Other Adopted Social History Smoking Status: Former smoker Second Hand Exposure: No; Do You Dip or Chew Tobacco: No; Hx Alcohol Use: Yes Alcohol type: beer, wine and hard liquor Alcohol Intake Frequency: Monthly or Less Hx Substance Use: No Preferred Language: Luxembourger Communication Ability: Effective Accounts Officer Required: No Beliefs That Will Affect Care: None marital status: Current Living Situation: [facility] Current Living Situation Comment: [facility]. current occupational status: retired Other Information That Helps Us Care for You: No Feels Safe at Home: Yes Safety Concerns: Feels Safe At This Time Assistive Devices: Cane, Glasses and Walker Review of System pt not seen Physical Exam Physical Exam: pt not seen Results & Data Vital Signs (Past 12 Hours) Vital Signs Temp Pulse Pulse Resp BP Pulse Ox O2 Del Method 10/07/22 09:41 75 10/07/22 09:41 Room Air 10/07/22 07:38 36.7 C 68 18 109/63 98 Room Air 10/07/22 03:25 36.7 C 75 20 110/68 95 Room Air Laboratory Results Short CBC 10/06/22 10/07/22 Range/Units 11:08 06:43 WBC 38.29 H* 19.89 H D (4.8-10.8) K/ul Hgb 13.1 L 11.1 L (14.0-18.0) g/dl Hct 38.4 L 33.4 L (42.0-52.0) % Plt Count 242 179 (130-400) K/uL BMP 10/06/22 10/07/22 11:08 06:43 Sodium 138 141 Potassium 4.5 4.4 Chloride 105 111 H Carbon Dioxide 23 26 BUN 49 H 41 H Creatinine 2.39 H 1.41 H D Glucose 122 H 86 Calcium 10.2 9.0 Cardiac Enzymes 10/06/22 10/07/22 Range/Units 15:30 06:43 Total Creatine Kinase 100 128 (30-223) U/L Liver Function 10/06/22 10/07/22 Range/Units 11:08 06:43 Total Bilirubin 1.1 H 0.7 (0.2-1.0) mg/dl Direct Bilirubin 0.2 (0-0.2) mg/dl AST 35 28 (13-39) U/L ALT 39 14 (7-52) U/L Alkaline Phosphatase 73 58 (34-104) U/L Albumin 4.2 3.2 L (3.4-5.0) gm/dl Urine 10/06/22 10/06/22 Range/Units 11:55 15:30 Urine Color Yellow [place] Urine Appearance Cloudy A Turbid A (Clear) Urine pH 5.5 6.0 (4.5-7.5) Ur Specific [place] 1.018 1.019 (1.000-1.030) Urine Protein 2+ H 2+ H (Negative) Urine Glucose (UA) Negative Negative (Negative) Diagnostic Findings Chest X-Ray 10/06/22 11:27 SINGLE VIEW CHEST CLINICAL HISTORY: Cough FINDINGS: An AP, portable, upright chest radiograph is compared to study dated 09/24/2022. The heart is enlarged. The pulmonary vasculature is noncongested. Chronic interstitial thickening is similar to previous. There is mild bibasilar scarring/atelectasis. No airspace consolidation or large pleural effusion is identified No pneumothorax is seen. The skeletal structures are osteopenic. There are chronic/healed left-sided rib fractures. IMPRESSION: No acute cardiopulmonary abnormality. ACT 112: Negative or not required by law. Electronically signed by: Harman May M.D. 10/06/2022 12:15 PM Abdomen/Pelvis CT 10/06/22 12:35 CT SCAN OF THE ABDOMEN AND PELVIS WITHOUT IV CONTRAST CLINICAL HISTORY: Generalized abdominal pain. COMPARISON STUDY: Abdominal CT dated 07/26/2022. TECHNIQUE: CT scan of the abdomen and pelvis is performed from the lung bases to the proximal femora. Images are reviewed in the axial, sagittal, and coronal planes. IV contrast was not administered for this examination. Note that the examination was performed in suboptimal fashion without oral and IV contrast. The examination is compromised by motion artifact, as well as by streak artifact from the arms which could not be elevated above the abdomen. A dose lowering technique was utilized adhering to the principles of ALARA. CT DOSE: 1261.21 mGy.cm FINDINGS: Lung bases: The heart is enlarged and without pericardial effusion. The coronary arteries and mitral annulus are densely calcified. 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 There is bibasilar scarring/atelectasis. No airspace consolidation or pleural effusion is identified. Liver: The unenhanced liver is normal in size, contour, and attenuation. There is no intrahepatic biliary ductal dilatation. Gallbladder: Unremarkable. Spleen: Normal in size and attenuation. Pancreas: Unremarkable. Adrenal glands: Unremarkable. Kidneys: The unenhanced kidneys demonstrate cortical atrophy and are without hydronephrosis. No renal calculi are identified and there is no ureteral stone. Cortical calcifications are again seen in the right lower pole. A 3.7 cm mass in the upper pole of the right kidney is again noted. This was better assessed on the 07/26/[address] scan. There are numerous bilateral renal cysts which measure up to 8 cm. A retroverted left renal vein is incidentally noted. Abdominal vasculature: The abdominal aorta is normal in course and caliber noting moderate to advanced atherosclerotic calcification. Bowel: There is moderate to advanced colonic diverticulosis without CT evidence of acute diverticulitis. No bowel obstruction is seen. There is rectosigmoid fecal retention. Moderate fecal retention is noted throughout the colon. The appendix is well-visualized and normal. Peritoneum: There is no intraperitoneal free air or abdominal ascites. There is a fat-containing umbilical hernia. Lymphadenopathy: None. Pelvic viscera: The prostate gland is enlarged and heterogeneous. The bladder wall is thickened and trabeculated indicating chronic outlet obstruction. There are numerous small bladder diverticula which measure up to 2.2 cm. There are foci of intraluminal gas within the bladder. A Thurston catheter has been placed. The balloon is inflated within the base of the penis. Skeletal structures: The skeletal structures are osteopenic. There are chronic/healed bilateral rib fractures. Moderate lumbosacral spondylosis is observed. No lytic or blastic lesions are seen. IMPRESSION: 1. Suboptimal examination without oral and IV contrast. The examination is also degraded by streak and motion artifact. 2. A Thurston catheter is in place. The balloon is inflated within the base of the penis. Repositioning is indicated. 3. Prostatomegaly with evidence of chronic bladder outlet obstruction. Foci of gas within the bladder lumen are nonspecific and may be related to instrumentation. Correlate with urinalysis. 4. Colonic diverticulosis without CT evidence of acute diverticulitis. 5. A 3.7 cm mass lesion is again seen in the upper pole of the right kidney. This was better assessed on the 07/26/[address] scan. 6. 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 7. Rectosigmoid fecal retention and moderate constipation. 8. Additional findings as above. ACT 112: Negative or not required by law. Electronically signed by: Harman May M.D. 10/06/2022 1:08 PM Medications Administered Current Inpatient Medications Acetaminophen (Acetaminophen 325 Mg Tab) 650 mg PO Q4H PRN PRN Reason: pain or fever Stop: 11/05/22 16:51 Aspirin (Aspirin 81 Mg Ectab) 81 mg PO DAILY CORI Stop: 11/06/22 08:59 Last Admin: 10/07/22 09:14 Dose: 81 mg Carbidopa/Levodopa (Carbidopa/Levodopa 25/100mg Tab) 1 tab PO TID CORI Stop: 11/05/22 20:59 Last Admin: 10/07/22 09:14 Dose: 1 tab Finasteride (Finasteride 5 Mg Tab) 5 mg PO QAM CROI Stop: 11/06/22 08:59 Last Admin: 10/07/22 09:14 Dose: 5 mg Heparin Sodium (Porcine) (Heparin Sod 5,000 Unit/0.5 Ml Vial) 5,000 units SQ Q12 CORI Stop: 11/05/22 20:59 Last Admin: 10/07/22 09:14 Dose: 5,000 units Daptomycin 400 mg/ Syringe 8 mls @ 4 mls/min IV Q24H CORI; Protocol Stop: 10/16/22 15:59 Cefepime HCl 2,000 mg/ Syringe 20 mls @ 5 mls/min IV Q12H CORI; Protocol Stop: 10/17/22 09:59 Last Admin: 10/07/22 10:37 Dose: 5 mls/min Magnesium Hydroxide (Magnesium Hydroxide Susp 30 Ml Udc) 30 ml PO Q48H PRN PRN Reason: Constipation Stop: 11/05/22 16:51 Metoprolol Tartrate (Metoprolol Tartrate 25 Mg Tab) 25 mg PO BID CORI Stop: 11/05/22 20:59 Last Admin: 10/07/22 09:14 Dose: 25 mg Pantoprazole Sodium (Pantoprazole 40 Mg Tab) 40 mg PO [facility] Stop: 11/06/22 08:59 Last Admin: 10/07/22 09:14 Dose: 40 mg Psyllium Hydrophilic Mucilloid (Psyllium Or Guar Gum Fiber Powder Packet) 1 pkt PO DAILY CORI Stop: 11/06/22 08:59 Last Admin: 10/07/22 09:15 Dose: 1 pkt
--- NOTE | 2022-10-07 13:05 | Hospitalist Progress Note ---
Date of Service October 07, 2022 Assessment & Plan (1) Severe sepsis: Plan: -Secondary to catheter associated UTI, present on admission -Urine cultures growing gram negatives, full characterization pending -Discontinue Daptomycin, Continue IV cefepime -Appreciate ID recs (2) NADINE (acute kidney injury): Plan: -Secondary to sepsis and thurston malfunction -Cr 2.39 on admission, some improvement after IV fluids -No sign of obstruction on CT pelvis -Continue IV fluid resuscitation and hold lisinopril -Avoid nephrotoxic agents and renally dose medications (3) Elevated troponin: Plan: -Initial high sen trop elevated at 1053, two hour repeat down to 653. Likely due to demand ischemia from sepsis -Patient has been asymptomatic and without acute ST segment or T-wave changes -2 D ECHO pending -Continue to trend trops (4) BPH w urinary obs/LUTS: Plan: -Thurston cath is being exchanged as previous was mal-positioned and likely infected -Will restart his finasteride that was discontinued at [facility] -Monitor intake and output q6h (5) Superficial thrombophlebitis: Plan: -Previously diagnosed in April of 2021, was started on Eliquis in April of 2021 as well -Eliquis was recently stopped as he had developed hematuria at [facility] since last admission -Can continue to hold eliquis as he completed greater than 6 months of treatment -Continue SQ heparin for DVT PPX and am starting him on daily aspirin for elevated trop (6) Hypertension: Plan: BP is soft, hold antihypertensives (7) Parkinson disease: Plan: -Continue Carbidopa-levodopa -Turn and position q2h Plan continue hopsitalization Admission and Anticipated Discharge Date Admission Date: October 06, 2022 Subjective patient seen and examined, no new complaints today, thurston catheter in situ Review of Systems Review of Systems: All systems reviewed are negative, apart from the ones contained in the history. Physical Exam Physical Exam: The patient is awake, alert and oriented 3, well developed and well nourished, normocephalic and atraumatic, lying in bed and in no acute distress. HEENT--PERRL, EOMI, mucous membranes and oropharynx mildly dry Neck--supple. No JVD. No bruits. Thyroid normal, trachea midline, no adenopathy. Heart--normal S1 and S2. guerra systolic murmur Lungs--clear bilaterally, no respiratory distress, no accessory muscle use. Abdomen--normal bowel sounds and soft. Mild epigastric and left sided abdominal pain Extremities--no cyanosis or clubbing. No edema. Dermatologic--normal skin turgor, normal color, no abnormal lymph nodes, no rash. Neurologic--cranial nerves II through XII grossly intact. Rheumatologic--normal range of motion. Psychiatric--normal affect. Results & Data Results & Data Vital Signs (Past 12 Hours) Vital Signs Temp Pulse Pulse Resp BP Pulse Ox O2 Del Method 10/07/22 12:27 97.7 F 60 17 104/64 99 Room Air 10/07/22 09:41 75 10/07/22 09:41 Room Air 10/07/22 07:38 98.1 F 68 18 109/63 98 Room Air 10/07/22 03:25 98.1 F 75 20 110/68 95 Room Air PG Care Time/CCT Total # of Minutes Spent Total Time Spent with Patient: Total time spent is greater than 50% in coordination of care (as documented) at patient's floor/unit and/or counseling patient: Coding Level of Care Code 96768 SUB INP/OBS CARE 2/35MIN Diagnoses Severe sepsis A41.9; R65.20 NADINE (acute kidney injury) N17.9 Elevated troponin R77.8 BPH w urinary obs/LUTS N40.1; N13.8 Superficial thrombophlebitis I80.9 Hypertension I10 Parkinson disease G20 Time Spent (min) 35
[2022-10-07] MEDS ORDERED: DAPTOmycin 400 MG in SYRINGE 0 ML IV SCH (16:00)
--- NOTE | 2022-10-07 18:17 | XCELERA ---
[id number]
[2022-10-07] MEDS: guaiFENesin 600 MG TABCR PO SCH (19:52)
[2022-10-08 07:47] LABS: Basophils # (auto) 0.04 K/uL (0-0.2); Basophils % (auto) 0.4 %; Eosinophils # (auto) 0.25 K/uL (0-0.50); Eosinophils % (auto) 2.7 %; Hematocrit (blood only) 34.9 % (42.0-52.0); Hemoglobin 11.4 g/dl (14.0-18.0); Immature Granulocytes # (auto) 0.06 K/uL (0.01-0.20); Immature Granulocytes % (auto) 0.6 %; Lymphocytes % (auto) 7.4 %; Mean Corpuscular Hgb Conc 32.7 g/dL (32.0-36.0); Mean Corpuscular Volume 94.8 fL (80.0-100.0); Mean Platelet Volume 11.4 fL (9.4-12.4); Monocytes # (auto) 1.05 K/uL (0.11-0.59); Monocytes % (auto) 11.2 %; Neutrophils % (auto) 77.7 %; Platelet Count 172 K/uL (130-400); RDW Coefficient of Variation 13.5 % (11.5-14.5); RDW Standard Deviation 47.2 fL (36.4-46.3); Red Blood Count 3.68 M/uL (4.70-6.10)
[2022-10-08 07:59] LABS: Albumin Globulin Ratio 1.4 (0.9-2); Albumin Level 3.4 gm/dl (3.4-5.0); BUN Creatinine Ratio 33.3 (10-20); Bilirubin,Total 0.6 mg/dl (0.2-1.0); Calcium 9.3 mg/dl (8.6-10.3); Creatinine Clr Calc Pharmacy 46.3 ml/min; Est GFR (African American) 73.6 ml/min; Est GFR (Non-African American) 63.5 ml/min; Globulin 2.5 gm/dl (2.5-4.0); Magnesium 1.9 mg/dl (1.7-2.4); Potassium 4.7 mmol/L (3.5-5.1); Total Protein 5.9 gm/dl (6.0-8.3)
[2022-10-08] MEDS: PSYLLIUM or GUAR GUM FIBER POWDER PACKET PO SCH (08:04)
[2022-10-08] MEDS: FINASTERIDE 5 MG TAB PO SCH (08:05)
[2022-10-08 08:09] LABS: Prothrombin Time 10.8 Seconds (9.0-12.0)
[2022-10-08] MEDS: CARBIDOPA/LEVODOPA 25/100MG TAB PO SCH ×3 (08:09→21:08)
[2022-10-08] MEDS: guaiFENesin 600 MG TABCR PO SCH ×2 (08:09→21:07)
[2022-10-08] MEDS: METOPROLOL TARTRATE 25 MG TAB PO SCH ×2 (08:10→21:08)
[2022-10-08] MEDS: ASPIRIN 81 MG ECTAB PO SCH (08:10)
[2022-10-08] MEDS: HEPARIN SOD 5,000 UNIT/0.5 ML VIAL SQ SCH ×2 (08:10→21:28)
[2022-10-08] MEDS: CEFEPIME 2,000 MG in SYRINGE 0 ML IV SCH ×2 (10:16→21:07)
--- NOTE | 2022-10-08 11:53 | Hospitalist Progress Note ---
Date of Service October 08, 2022 Assessment & Plan (1) Severe sepsis: Plan: -Secondary to catheter associated UTI, present on admission -Urine cultures growing Klebsiella Pneumonia -Discontinue Daptomycin, Continue IV cefepime -Appreciate ID recs (2) NADINE (acute kidney injury): Plan: -Secondary to sepsis and thurston malfunction -Cr 2.39 on admission, now resolved following IV fluids -No sign of obstruction on CT pelvis -Continue to hold lisinopril -Avoid nephrotoxic agents and renally dose medications (3) Elevated troponin: Plan: -Initial high sen trop elevated at 1053, two hour repeat down to 653. Likely due to demand ischemia from sepsis -Patient has been asymptomatic and without acute ST segment or T-wave changes -2 D ECHO EF 60-65%, no wall motion abnormality -Continue to trend trops (4) BPH w urinary obs/LUTS: Plan: -Thurston cath was exchanged as previous was mal-positioned and likely infected -Will restart his finasteride that was discontinued at [facility] -Monitor intake and output q6h (5) Superficial thrombophlebitis: Plan: -Previously diagnosed in April of 2021, was started on Eliquis in April of 2021 as well -Eliquis was recently stopped as he had developed hematuria at [facility] since last admission -Can continue to hold eliquis as he completed greater than 6 months of treatment -Continue SQ heparin for DVT PPX and am starting him on daily aspirin for elevat ed trop (6) Hypertension: Plan: BP is soft, hold antihypertensives (7) Parkinson disease: Plan: -Continue Carbidopa-levodopa -Turn and position q2h Plan continue hopsitalization Admission and Anticipated Discharge Date Admission Date: October 06, 2022 Subjective patient seen and examined, no new complaints today, thurston catheter in situ Review of Systems Review of Systems: All systems reviewed are negative, apart from the ones contained in the history. Physical Exam Physical Exam: The patient is awake, alert and oriented 2, thin looking HEENT--PERRL, EOMI, mucous membranes and oropharynx mildly dry Neck--supple. No JVD. No bruits. Thyroid normal, trachea midline, no adenopathy. Heart--normal S1 and S2. guerra systolic murmur Lungs--clear bilaterally, no respiratory distress, no accessory muscle use. Abdomen--normal bowel sounds and soft. Mild epigastric and left sided abdominal pain Extremities--no cyanosis or clubbing. No edema. Dermatologic--normal skin turgor, normal color, no abnormal lymph nodes, no rash. Neurologic--cranial nerves II through XII grossly intact. Rheumatologic--normal range of motion. Psychiatric--normal affect. Results & Data Results & Data Vital Signs (Past 12 Hours) Vital Signs Temp Pulse Resp BP Pulse Ox O2 Del Method 10/08/22 11:28 97.7 F 58 L 19 116/67 99 Room Air 10/08/22 08:00 Room Air 10/08/22 07:48 97.7 F 59 L 19 136/60 99 Room Air 10/08/22 02:19 97.7 F 67 18 119/85 95 Room Air PG Care Time/CCT Total # of Minutes Spent Total Time Spent with Patient: Total time spent is greater than 50% in coordination of care (as documented) at patient's floor/unit and/or counseling patient: Coding Level of Care Code 86566 SUB INP/OBS CARE 2/35MIN Diagnoses Severe sepsis A41.9; R65.20 NADINE (acute kidney injury) N17.9 Elevated troponin R77.8 BPH w urinary obs/LUTS N40.1; N13.8 Superficial thrombophlebitis I80.9 Hypertension I10 Parkinson disease G20 Time Spent (min) 35
[2022-10-08] MEDS ORDERED: DAPTOmycin 400 MG in SYRINGE 0 ML IV SCH (16:00)
--- NOTE | 2022-10-08 22:29 | Electrocardiogram Report ---
Test Reason : Blood Pressure : / mmHG Vent. Rate : 081 BPM Atrial Rate : 081 BPM P-R Int : 170 ms QRS Dur : 086 ms QT Int : 380 ms P-R-T Axes : 054 002 053 degrees QTc Int : 441 ms Sinus rhythm with occasional Premature ventricular complexes Otherwise normal ECG When compared with ECG of 21-SEP-2022 12:24, Premature ventricular complexes are now Present Confirmed by Wilber Espinosa ([id number]) on 10/08/2022 10:29:33 PM Referred By: [facility] Confirmed By:Wilber Espinosa
[2022-10-08] MEDS ORDERED: AMIODARONE 150MG / 100ML D5W IV ONE (22:55)
[2022-10-09 08:03] LABS: Basophils # (auto) 0.03 K/uL (0-0.2); Basophils % (auto) 0.5 %; Eosinophils % (auto) 3.3 %; Hematocrit (blood only) 35.1 % (42.0-52.0); Hemoglobin 11.8 g/dl (14.0-18.0); Immature Granulocytes # (auto) 0.09 K/uL (0.01-0.20); Immature Granulocytes % (auto) 1.5 %; Lymphocytes % (auto) 13.2 %; Mean Corpuscular Hemoglobin 31.5 pg (25.0-34.0); Mean Corpuscular Hgb Conc 33.6 g/dL (32.0-36.0); Mean Corpuscular Volume 93.6 fL (80.0-100.0); Mean Platelet Volume 11.4 fL (9.4-12.4); Monocytes # (auto) 0.78 K/uL (0.11-0.59); Monocytes % (auto) 12.9 %; Neutrophils # (auto) 4.14 K/uL (1.40-6.50); Neutrophils % (auto) 68.6 %; Platelet Count 182 K/uL (130-400); RDW Coefficient of Variation 13.5 % (11.5-14.5); RDW Standard Deviation 46.2 fL (36.4-46.3); Red Blood Count 3.75 M/uL (4.70-6.10); White Blood Count 6.04 K/ul (4.8-10.8)
[2022-10-09 08:16] LABS: Albumin Globulin Ratio 1.3 (0.9-2); Albumin Level 3.5 gm/dl (3.4-5.0); BUN Creatinine Ratio 26.9 (10-20); Bilirubin,Total 0.6 mg/dl (0.2-1.0); Calcium 9.7 mg/dl (8.6-10.3); Creatinine Clr Calc Pharmacy 45.1 ml/min; Est GFR (African American) 71.1 ml/min; Est GFR (Non-African American) 61.4 ml/min; Globulin 2.7 gm/dl (2.5-4.0); Magnesium 1.9 mg/dl (1.7-2.4); Potassium 4.7 mmol/L (3.5-5.1); Total Protein 6.2 gm/dl (6.0-8.3)
[2022-10-09 08:28] LABS: Prothrombin Time 10.8 Seconds (9.0-12.0)
[2022-10-09 09:15] LABS: Allen Test Pos (Pos); Base Excess ABG 0.9 mEq/L (-9-1.8); HCO3 ABG 24 mmol/L (19-24); Oxygen Saturation ABG 97.4 % (90-95); PCO2 ABG 33 mmHg (35-46); PO2 ABG 80 mmHg (80-95); pH ABG 7.47 (7.35-7.45)
--- NOTE | 2022-10-09 10:01 | Infectious Disease Progress Nt ---
Date of Service October 09, 2022 Assessment & Plan (1) Severe sepsis: (2) Acute UTI (urinary tract infection): Plan 87 yo M with BPH with urinary obstruction, recurrent UTIs, HTN, CKD, Parkinson's disease with dementia who presented on 10/06 with fever, hypotension, found to have sepsis likely secondary to urinary source with malpositioned thurston catheter with balloon inflated within base of penis. Of note, he was recently admitted from 09/20 - 09/27 for generalized weakness, confusion, fevers, and treated for a UTI. UCx at that time grew VRE and coag neg Staph, and he was treated with daptomycin to complete a 7 day course through 09/29. A thurston catheter was placed, with plan to follow-up with Urology as an outpatient for monthly catheter changes. He reportedly improved post-discharge. On presentation 10/06, pt was afebrile, hypotensive to 88/53. Labs showed WBC 38.29, Cr 2.39, lactate 2.2, procalcitonin 34. UA with >[address] A/P without IV contrast showed a thurston catheter with balloon inflated within base of penis, requiring repositioning. Per pt's , the pt had an episode where he accidentally pulled on his thurston cath a few days prior, which likely caused it to be misaligned. Pt was started on dapto, cefepime for sepsis. Thurston was exchanged. UCx grew Kleb pneumo. Pt likely with sepsis from urinary source secondary to dislodged thurston catheter. Leukocytosis has resolved, and Cr has downtrended. Micro: 10/06 UCx: 20K Kleb pneumo 10/06 UCx: 60K Kleb pneumo 10/06 BCx x2: NGTD 10/06 UCx: >100K Kleb pneumo (S cefaz, cefepime, ceftriaxone, erta, levo, zia, nitrofurantoin, pip/tazo. I amox/clav. R amp/sulbactam, cipro, gent, TMP/SMX) Abx: Ceftriaxone 10/09 - Dapto 10/06 Cefepime 10/06 - 10/08 Problems: #Kleb pneumo complicated UTI #Sepsis / urinary source #Malpositioned thurston Recommendations: -Continue ceftriaxone 2 g IV daily -Can transition to cefpodoxime 200 mg PO BID to complete a 7 day course from 10/06 - 10/12 Will sign off. Please page [facility] Center with further questions. Admission and Anticipated Discharge Date Admission Date: October 06, 2022 Subjective This patient recommendation is based on a telemedicine consult request which was completed asynchronously through chart review and information provided by the primary physician. The patient was not seen or examined today. The evaluation is consultative in nature and all patient care and treatment decisions can either be accepted or rejected by the patient's primary hospital-based treating physician using their own independent medical judgment for their patient. Time Spent Reviewing Chart: 21 - 30 minutes Leukocytosis has resolved UCx growing Kleb pneumo Cefepime changed to ceftriaxone Cr downtrending Review of System pt not seen Physical Exam Physical Exam: pt not seen Results & Data Vital Signs (Past 12 Hours) Vital Signs Temp Pulse Pulse Resp BP Pulse Ox O2 Del Method 10/09/22 07:30 36.5 C 53 L 17 112/62 97 Room Air 10/08/22 22:00 56 L 10/09/22 04:35 36.8 C 57 L 18 111/67 95 Room Air 10/08/22 23:38 36.7 C 52 L 20 120/70 96 Room Air Laboratory Results Short CBC 10/09/22 Range/Units 07:22 WBC 6.04 (4.8-10.8) K/ul Hgb 11.8 L (14.0-18.0) g/dl Hct 35.1 L (42.0-52.0) % Plt Count 182 (130-400) K/uL BMP 10/09/22 07:22 Sodium 140 Potassium 4.7 Chloride 109 H Carbon Dioxide 27 BUN 29 H Creatinine 1.08 Glucose 101 H Calcium 9.7 Cardiac Enzymes 10/09/22 Range/Units 07:22 Total Creatine Kinase 22 L (30-223) U/L Liver Function 10/09/22 Range/Units 07:22 Total Bilirubin 0.6 (0.2-1.0) mg/dl AST 20 (13-39) U/L ALT 10 (7-52) U/L Alkaline Phosphatase 65 (34-104) U/L Albumin 3.5 (3.4-5.0) gm/dl Medications Administered Current Inpatient Medications Acetaminophen (Acetaminophen 325 Mg Tab) 650 mg PO Q4H PRN PRN Reason: pain or fever Stop: 11/05/22 16:51 Aspirin (Aspirin 81 Mg Ectab) 81 mg PO DAILY CORI Stop: 11/06/22 08:59 Last Admin: 10/08/22 08:10 Dose: 81 mg Carbidopa/Levodopa (Carbidopa/Levodopa 25/100mg Tab) 1 tab PO TID CORI Stop: 11/05/22 20:59 Last Admin: 10/08/22 21:08 Dose: 1 tab Finasteride (Finasteride 5 Mg Tab) 5 mg PO QAM CORI Stop: 11/06/22 08:59 Last Admin: 10/08/22 08:05 Dose: 5 mg Guaifenesin (Guaifenesin 600 Mg Tabcr) 600 mg PO Q12 CORI Stop: 11/06/22 20:59 Last Admin: 10/08/22 21:07 Dose: 600 mg Heparin Sodium (Porcine) (Heparin Sod 5,000 Unit/0.5 Ml Vial) 5,000 units SQ Q12 CORI Stop: 11/05/22 20:59 Last Admin: 10/08/22 21:28 Dose: 5,000 units Ceftriaxone Sodium 2,000 mg/ (Dextrose) 70 mls @ 140 mls/hr IV Q24H CORI Stop: 10/17/22 09:59 Magnesium Hydroxide (Magnesium Hydroxide Susp 30 Ml Udc) 30 ml PO Q48H PRN PRN Reason: Constipation Stop: 11/05/22 16:51 Metoprolol Tartrate (Metoprolol Tartrate 25 Mg Tab) 25 mg PO BID CORI Stop: 11/05/22 20:59 Last Admin: 10/08/22 21:08 Dose: 25 mg Pantoprazole Sodium (Pantoprazole 40 Mg Tab) 40 mg PO MoWeFr CORI Stop: 11/06/22 08:59 Last Admin: 10/07/22 09:14 Dose: 40 mg Psyllium Hydrophilic Mucilloid (Psyllium Or Guar Gum Fiber Powder Packet) 1 pkt PO DAILY CORI Stop: 11/06/22 08:59 Last Admin: 10/08/22 08:04 Dose: 1 pkt
[2022-10-09] MEDS: cefTRIAXone SODIUM 2,000 MG in DEXTROSE 5% 50 ML IV SCH (10:09)
[2022-10-09] MEDS: CARBIDOPA/LEVODOPA 25/100MG TAB PO SCH ×3 (10:13→19:58)
[2022-10-09] MEDS: ASPIRIN 81 MG ECTAB PO SCH (10:15)
[2022-10-09] MEDS: PANTOprazole 40 MG TAB PO SCH (10:15)
[2022-10-09] MEDS: METOPROLOL TARTRATE 25 MG TAB PO SCH ×2 (10:15→19:58)
[2022-10-09] MEDS: guaiFENesin 600 MG TABCR PO SCH ×2 (10:15→20:03)
[2022-10-09] MEDS: FINASTERIDE 5 MG TAB PO SCH (10:15)
[2022-10-09] MEDS: PSYLLIUM or GUAR GUM FIBER POWDER PACKET PO SCH (10:16)
[2022-10-09] MEDS: HEPARIN SOD 5,000 UNIT/0.5 ML VIAL SQ SCH ×2 (10:16→19:58)
--- NOTE | 2022-10-09 13:18 | Hospitalist Progress Note ---
Date of Service October 09, 2022 Assessment & Plan (1) Severe sepsis: Plan: -Secondary to catheter associated UTI, present on admission -Urine cultures growing Klebsiella Pneumonia -Convert cefepime to ceftriaxone, plan to send home on cefpodoxime as per ID recommendation to finish 14-day course-will extend from 7 days due to risk of recurrent UTI and prostatitis -Appreciate ID recs -follow-up with urology after discharge for recurrent UTIs, patient and his are interested in managing his enlarged prostate potentially with surgery to be able to eliminate the chronic Thurston catheter (2) NADINE (acute kidney injury): Plan: -Secondary to sepsis and thurston malfunction -Cr 2.39 on admission, now resolved following IV fluids -No sign of obstruction on CT pelvis -Continue to hold lisinopril -Avoid nephrotoxic agents and renally dose medications (3) Elevated troponin: Plan: -Initial high sen trop elevated at 1053, Troponin then trended downward to 255,Likely due to demand ischemia from sepsis -Patient has been asymptomatic and without acute ST segment or T-wave changes on ECG -2 D ECHO EF 60-65%, no wall motion abnormality can transfer off telemetry (4) BPH w urinary obs/LUTS: Plan: -Thurston cath was exchanged as previous was mal-positioned and likely infected - okay to continue finasteride that was discontinued at [facility]-this does not lower blood pressure follow-up with urology (5) Superficial thrombophlebitis: Plan: -Previously diagnosed in April of 2021, was started on Eliquis in April of 2021 as well -Eliquis was recently stopped as he had developed hematuria at [facility] since last admission -Can continue to hold eliquis as he completed greater than 6 months of treatment -Continue SQ heparin for DVT PPX and Started him on daily aspirin for elevated trop (6) Hypertension: Plan: BP is soft, Held antihypertensives but metoprolol restarted for frequent PVCs (7) Parkinson disease: Plan: -Continue Carbidopa-levodopa PT/OT Plan disposition-continue hospitalization, but downgrade to medical/surgical unit, likely discharge to SNF tomorrow Admission and Anticipated Discharge Date Admission Date: October 06, 2022 Subjective Patient was heavily sleeping all morning but woke up and ate all of his lunch as fed by his . He has no complaints. Telemetry with sinus bradycardia and normal sinus rhythm with PVCs with rates in the 50s to 60s Physical Exam Constitutional: WD/WN, vitals as above Respiratory: normal respiratory effort, lungs clear to auscultation Cardiovascular: Rate/Rhythm: regular rhythm and + bradycardic Heart Sounds: + murmur (3/6 YAW at [facility]) Gastrointestinal (Abdomen): normal bowel sounds, soft, nontender, no hepatosplenomegaly Genitourinary: Thurston catheter in place draining clear yellow urine Results & Data Results & Data Vital Signs (Past 12 Hours) Vital Signs Temp Pulse Resp BP Pulse Ox O2 Del Method 10/09/22 11:18 36.3 C L 46 L 16 99/61 L 98 Room Air 10/09/22 07:30 36.5 C 53 L 17 112/62 97 Room Air 10/09/22 04:35 36.8 C 57 L 18 111/67 95 Room Air Laboratory Results CBC, BMP, LFTs, troponin, magnesium level, CK reviewed PG Care Time/CCT Total # of Minutes Spent Total Time Spent with Patient: Total time spent is greater than 50% in coordination of care (as documented) at patient's floor/unit and/or counseling patient: Coding Level of Care Code 44857 SUB INP/OBS CARE 2/35MIN Diagnoses Severe sepsis A41.9; R65.20 NADINE (acute kidney injury) N17.9 Elevated troponin R77.8 BPH w urinary obs/LUTS N40.1; N13.8 Superficial thrombophlebitis I80.9 Hypertension I10 Parkinson disease G20
[2022-10-09] MEDS ORDERED: bisacodyL 10 MG SUPP PR PRN (15:37)
[2022-10-10] MEDS: CARBIDOPA/LEVODOPA 25/100MG TAB PO SCH ×2 (08:43→13:41)
[2022-10-10] MEDS: HEPARIN SOD 5,000 UNIT/0.5 ML VIAL SQ SCH (08:44)
[2022-10-10] MEDS ORDERED: CYANOCOBALAMIN (B-12) 500 MCG TABLET PO SCH (09:00)
[2022-10-10] MEDS ORDERED: CHOLECALCIFEROL 1,000 UNITS 25 MCG TAB PO SCH (09:00)
[2022-10-10] MEDS: FINASTERIDE 5 MG TAB PO SCH (09:44)
[2022-10-10] MEDS: guaiFENesin 600 MG TABCR PO SCH (09:44)
[2022-10-10] MEDS: ASPIRIN 81 MG ECTAB PO SCH (09:44)
[2022-10-10] MEDS: PSYLLIUM or GUAR GUM FIBER POWDER PACKET PO SCH (09:44)
[2022-10-10] MEDS: METOPROLOL TARTRATE 25 MG TAB PO SCH (09:56)
[2022-10-10] MEDS: cefTRIAXone SODIUM 2,000 MG in DEXTROSE 5% 50 ML IV SCH (10:19)
--- NOTE | 2022-10-10 12:34 | Discharge Summary ---
Discharge Summary Date of Service October 10, 2022 Notes For Next Care Provider Antihypertensives held/stopped-monitor blood pressures Needs to keep Urology follow up for Thurston to discuss possible surgical treatments of enlarged prostate as patient and prefer to not have a chronic Thurston catheter. Medication Changes From Visit Cefpodoxime 200mg po bid x 10 more days Stopped lisinopril, amlodipine Reduced dose of metoprolol to 12.5mg po bid Admission HPI Per Admitting Provider Onel Davenport is an 87 year old male with a PMH significant for BPH with LUTS and recurrent UTI's now with chronic thurston cath, HTN, HLP, CKD, Parkinson's disease with dementia, and superficial phlebitis (on Eliquis) who presented to the [facility] ED from [facility] via EMS due to SOB, hypotension, and lower abd pain. In the ED the patient was noted to be hypotensive at 88/53 but otherwise stable. Labs were significant for 38 with left shift of 35, immature granulocyte count of 1.15, cr of 2.39 (baseline is near 1.0), lactate of 2.2, total bili of 1.1, initial high sen trop of 1026, procal of 34, UA suggestive of UTI. Chest xray was read as "No acute cardiopulmonary abnormality.". CT of the abd/pelvis wo con was read as "1. Suboptimal examination without oral and IV contrast. The examination is also degraded by streak and motion artifact. 2. A Thurston catheter is in place. The balloon is inflated within the base of the penis. Repositioning is indicated. 3. Prostatomegaly with evidence of chronic bladder outlet obstruction. Foci of gas within the bladder lumen are nonspecific and may be related to instrumentation. Correlate with urinalysis. 4. Colonic diverticulosis without CT evidence of acute diverticulitis. 5. A 3.7 cm mass lesion is again seen in the upper pole of the right kidney. This was better assessed on the 07/26/[address] scan. 6. 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 7. Rectosigmoid fecal retention and moderate constipation.". Prior to admission the patient was given a dose co Cefepime, a dose of Daptomycin, and 1.5L NSS bolus. Per chart review, the patient was recently admitted to [facility] from 09/20-09/27 due to Urosepsis. Urine urine cultures grew Coag negative staph and VRE, both negative to Daptomycin. He was initially started on Cefepime at admission but switched to Daptomycin with culture results and sensitivities. He underwent PICC placement after a second round of negative blood cultures and discharged with plans to complete his course of Daptomycin on 09/29. He was evaluated by urology for urinary retention and had a thurston cath placed on admission. Urology recommended keeping the thurston in on discharge with plans to follow up in the clinic outpatient. His admission was complicated by symptomatic PVC's with short runs of NSVT. He was started on PO metoprolol tartrate 25 mg BID with improvement of symptoms and was discharged on the same dose. At the time of the exam the patient was lying in bed in no acute distress with his sitting bedside, history was mainly obtained from the due to the patient's baseline mental status. She states that the patient has been in the retirement part of [facility] since his last admission. He completed his course of antibiotics as prescribed and had been doing well. She was called this am and told he was febrile and hypotensive, which is why he was brought to the ED. When asked, the patient denies current chest pain, SOB, abd pain, nausea, vomiting, diarrhea, LE swelling, and recent trauma. His states that the patient had an episode where he accidentally pulled on his thurston cath while standing a few days ago, which is likely what caused it to be misaligned. The patient has been having a non-productive cough for the past few days as well. We discussed code status again, after talking about it more after his last discharge, the patient and his think that DNR/DNI is the best option as his quality of life would not be good if he would need CPR or intubation. I was able to speak with the nursing staff at [facility] to obtain more information. They confirm he completed his course of Daptomycin. Last night he spiked a fever of 103F, he was given a dose of Ceftriaxone last night. This am he was hypotensive with systolics in the 80 and appeared more weak than baseline. They deny recent diarrhea being reported. They confirm that the metoprolol he was discharged on was originally on his med list at [facility], but it was discontinued for an unknown reason, they will call back if they can det ermine the reason. His eliquis was on hold as he had developed hematuria. He has been on SQ heparin since for DVT PPX. They confirmed that he was originally prescribed the Eliquis on May [id number]. They also confirmed that his metoprolol and finasteride had been held due to soft BP a week ago but was continued on the lisinopril and amlodipine. Please refer to Dr. Ferro's attestation for any changes to the treatment plan Principal Dx & Hospital Course #1 = Principal Diagnosis (1) Severe sepsis: -Secondary to catheter associated UTI, present on admission -Urine cultures growing Klebsiella Pneumonia -initially on cefepime and then changed to ceftriaxone, plan to send home on cefpodoxime as per ID recommendation to finish 14-day course due to risk of recurrent UTI and prostatitis -Appreciate ID recs -follow-up with urology after discharge for recurrent UTIs, patient and his are interested in managing his enlarged prostate potentially with surgery to be able to eliminate the chronic Thurston catheter (2) NADINE (acute kidney injury): -Secondary to sepsis and thurston malfunction -Cr 2.39 on admission, now resolved following IV fluids -No sign of obstruction on CT pelvis -Continue to hold lisinopril after discharge -Avoid nephrotoxic agents and renally dose medications (3) Elevated troponin: -Initial high sen trop elevated at 1053, Troponin then trended downward to 255,Likely due to demand ischemia from sepsis -Patient has been asymptomatic and without acute ST segment or T-wave changes on ECG -2 D ECHO EF 60-65%, no wall motion abnormality (4) BPH w urinary obs/LUTS: -Thurston cath was exchanged as previous was mal-positioned and likely infected - okay to continue finasteride that was discontinued at [facility]-this does not lower blood pressure follow-up with urology (5) Superficial thrombophlebitis: -Previously diagnosed in April of 2021, was started on Eliquis in April of 2021 as well -Eliquis was recently stopped as he had developed hematuria at [facility] since last admission -Can continue to hold eliquis as he completed greater than 6 months of treatment -Continue SQ heparin for DVT PPX (6) Hypertension: BP is soft, Held antihypertensives but metoprolol restarted for frequent PVCs t a lower dose of 12.5mg bid (7) Parkinson disease: -Continue Carbidopa-levodopa PT/OT Plan disposition-discharge to SNF today Discharge Exam Constitutional WD/WN, vitals as above Respiratory normal respiratory effort, lungs clear to auscultation Cardiovascular Rate/Rhythm: regular rhythm and + bradycardic Heart Sounds: + murmur (3/6 YAW at [facility]) Gastrointestinal (Abdomen) normal bowel sounds, soft, nontender, no hepatosplenomegaly Psychiatric Orientation: alert, oriented to person, oriented to place and cooperative Updated Medication List Medication Instructions Recorded Confirmed Type amlodipine 2.5 mg tablet 2.5 mg PO QAM 12/04/21 10/06/22 History carbidopa 25 mg-levodopa 100 mg 1 tab PO TID 12/04/21 10/06/22 History tablet (Sinemet) cholecalciferol (vitamin D3) 50 50 mcg PO DAILY 12/04/21 10/06/22 History mcg (2,000 unit) capsule finasteride 5 mg tablet (Proscar) 5 mg PO QAM 12/04/21 10/06/22 History pantoprazole 40 mg tablet,delayed 40 mg PO 3XWK 12/04/21 10/06/22 History release cyanocobalamin (vitamin B-12) 1,000 mcg PO DAILY 01/21/22 10/06/22 History 1,000 mcg tablet (Vitamin B-12) lisinopril 2.5 mg tablet 2.5 mg PO DAILY 07/25/22 10/06/22 History psyllium husk 3.4 gram/5.4 gram 1 tbsp PO DAILY 07/25/22 10/06/22 History oral powder (Metamucil) acetaminophen 325 mg tablet 650 mg PO Q4H PRN pain or fever 10/06/22 10/06/22 History bisacodyl 10 mg rectal suppository 10 mg ME Q48H PRN Constipation 10/06/22 10/06/22 History (Dulcolax (bisacodyl)) heparin (bovine) 5,000 unit/mL See Rx Instructions .Route .COMPLEX 10/06/22 10/06/22 History injection solution magnesium hydroxide 400 mg/5 mL 30 ml PO Q48H PRN Constipation 10/06/22 10/06/22 History oral suspension (Milk of Magnesia) sodium phosphates 19 gram-7 118 ml ME Q72H PRN Constipation 10/06/22 10/06/22 History gram/118 mL enema (Fleet Enema) cefpodoxime 200 mg tablet 200 mg PO BID #20 tabs 10/10/22 Rx metoprolol tartrate 25 mg tablet 12.5 mg PO BID #30 tabs 10/10/22 Rx Hospital Stay Data Consultations 10/06/22 14:53 ED Decision to Admit Stat 10/07/22 08:06 Consult Infectious Diseases Routine Diagnostic Imagining Performed 10/06/22 12:35 CT Abd and Pelvis [CT abd pelvis wo con] Stat Pending Results Patient Have Any Pending Studies at Discharge: Yes (Final blood culture result- no growth to date) Discharge Instructions Given to Patient (Per Discharging Provider) Please finish out 10 more days of the oral antibiotic called cefpodoxime for your UTI. Your Thurston catheter was exchanged here at the hospital and should be exchanged at least once monthly with Urology. Your amlodipine and lisinopril were stopped due ot lower blood pressures. Your metoprolol dose was lowered to 12.5mg twice a day-you are on this for your history of nonsustained ventricular tachycardia. Total Time Total Time Spent Total Time Spent (In Minutes): 40 min Coding Level of Care Code 91371 INP/OBS DISCH >30 MIN Diagnoses Severe sepsis A41.9; R65.20 NADINE (acute kidney injury) N17.9 Elevated troponin R77.8 BPH w urinary obs/LUTS N40.1; N13.8 Superficial thrombophlebitis I80.9 Hypertension I10 Parkinson disease G20
== END 2022-10-10 14:41 | DRG 698 ==
LOC: ED 10:50 → SUATTDRO 15:01 → 2S 15:01 → 3N 10-09 15:16

== ENCOUNTER 2023-03-30 16:02 | Observation (INO) ==
[2023-03-30 17:36] LABS: Basophils # (auto) 0.04 K/uL (0.00-0.20); Basophils % (auto) 0.5 %; Eosinophils % (auto) 3.9 %; Hematocrit (blood only) 43.4 % (42.0-52.0); Hemoglobin 14.5 g/dl (14.0-18.0); Immature Granulocytes % (auto) 1.3 %; Lymphocytes % (auto) 19.6 %; Mean Corpuscular Hemoglobin 31.7 pg (25.0-34.0); Mean Corpuscular Hgb Conc 33.4 g/dL (32.0-36.0); Mean Corpuscular Volume 94.8 fL (80.0-100.0); Monocytes # (auto) 0.91 K/uL (0.11-0.59); Monocytes % (auto) 11.9 %; Neutrophils % (auto) 62.8 %; Platelet Count 241 K/uL (130-400); RDW Coefficient of Variation 13.2 % (11.5-14.5); RDW Standard Deviation 45.5 fL (36.4-46.3); Red Blood Count 4.58 M/uL (4.70-6.10); White Blood Count 7.65 K/ul (4.8-10.8)
[2023-03-30 17:44] LABS: Albumin Globulin Ratio 1.6 (0.9-2); Albumin Level 4.3 gm/dl (3.4-5.0); BUN Creatinine Ratio 22.4 (10-20); Bilirubin,Total 0.7 mg/dl (0.2-1.0); Calcium 9.9 mg/dl (8.6-10.3); Creatinine Clr Calc Pharmacy 34.4 ml/min; Est GFR (African American) 45.6 ml/min; Est GFR (Non-African American) 39.4 ml/min; Globulin 2.7 gm/dl (2.5-4.0); Potassium 4.3 mmol/L (3.5-5.1)
--- NOTE | 2023-03-30 17:50 | XRay Report ---
XR chest 1V portable HISTORY: Chest pain, nonspecific COMPARISON: Chest 10/11/2022. FINDINGS: The patient's hand overlies the right lateral hemithorax. No definite pneumothorax. Stable blunting of the left lateral costophrenic sulcus. No pleural effusions. There are old, healed left-si ded rib fractures. The visualized lungs are clear. No evidence for pulmonary edema. The heart is norm al in size. IMPRESSION: The patient's hand overlies the right lateral hemithorax. No definite acute process within the chest. ACT 112: Negative or not required by law. Electronically signed by: Eben Nichols M.D. 03/30/2023 5:49 PM
[2023-03-30 17:51] LABS: Troponin I High Sensitivity 6.9 pg/ml (0-20)
[2023-03-30 18:03] LABS: D Dimer 540 ug/L FEU (0-500)
--- NOTE | 2023-03-30 18:05 | Emergency Department Note ---
Impression & Plan Chest pain ED Provider Note HISTORY OF PRESENT ILLNESS: Patient is an 87-year-old male presenting with left-sided chest pain. Patient reportedly developed acute onset of left-sided pressure chest pain at 1530 while sitting with family. He describes the pain as a pressure and sharp sensation. He is on Eliquis but he does not know why he is on that. Denies any DVT or PE history. Denies any history of cardiac stents. Denies any recent cough or fevers. He is chest pain-free on my assessment in the ER. Denies any significant associated shortness of breath with the chest pain. Denies any recent falls or trauma to the chest. ROS: as above PHYSICAL EXAM: Constitutional: Patient appears in no acute distress. HENT: Head: Normocephalic and atraumatic. Eyes: EOMI, PERRL Mouth/Throat: Mucous membranes moist. Neck: Trachea midline. Neck supple. Cardiovascular: RRR, No rubs or gallops. Intact distal pulses. Pulmonary/Chest: No respiratory distress. Breath sounds clear and equal bilaterally. No wheezes or rales. Abdominal: Abdomen soft, no tenderness, rebound or guarding. Musculoskeletal: No edema, tenderness or deformity noted. Skin: Warm and dry. No rash, erythema, pallor or cyanosis Psychiatric: Appropriate mood and affect for situation. Neurological: Alert and keenly responsive. CN II-XII grossly intact, moving all extremities equally and fully. MDM: - Vitals signs stable. - History obtained via patient. Patient presents with left-sided chest pain. Patient reported he developed acute onset of left-sided chest pain at 1530 while sitting with family. Describes the pain as pressure and sharp sensation. He is on Eliquis. Denies any DVT or PE history. Denies any history of cardiac stents. Denies any recent cough or fevers. - Chronic conditions affecting care: HTN; HLD; CKD; dementia - Differential diagnoses include, but are not limited to: Acute coronary syndrome; pulmonary embolism; dissection; tension pneumothorax; esophageal rupture; pneumonia - Order placed for continuous cardiac monitoring. At this time, monitor showed rate of 71 bpm with normal sinus rhythm, per my interpretation. - External medical records reviewed. Echocardiogram from 10/07/2022 was reviewed. Patient has an EF of 60 to 65%. 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 - EKG interpreted by myself showed normal sinus rhythm. Rate 71 bpm. QTc 443. No acute ischemic changes. Noted to have PVCs. - Laboratory workup interpreted by myself showed normal normal WBC; stable electrolytes; elevated creatinine (Cr 1.56); normal troponin; normal lipase; elevated dimer - Repeat troponin WNL - CXR negative for pneumonia - CT PE negative for PE - Heart score 4 (History +1 moderately suspicious; EKG +0; Age +2; Risk factors +1; Initial troponin +0), amounting to a moderate score. - Discussed results with patient and his family. Offered admission for chest pain rule out to which they were agreeable. - Discussion was had with physician assistant primary care about patient's case and need for admission - Hospitalist consulted for admission - Patient admitted to [facility]ist service for further evaluation and management. ASSESSMENT AND PLAN: Diagnosis: chest pain Plan: admit Past Med/Surg History Medical History (Updated 03/30/23 @ 22:46 by Nancy Lind MD) PVC (premature ventricular contraction) Aortic stenosis Mitral regurgitation Lab test negative for COVID-19 virus Acute dehydration Weakness Sepsis Dementia Resides in detention facility current resident of [facility] Parkinson disease Dysphonia Dysarthria and anarthria 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 stage III Dysphagia Other abnormalities of gait and mobility Weakness Muscle spasm of back Hyperlipidemia Diverticulosis of large intestine without perforation or abscess without bleeding History of blood clots superficial - LLE - 2 years ago, RLE - approx 1 year ago? Poor historian Hearing deficit [place] left Irregular heart rhythm follows w/ Dr. 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 History of basal cell carcinoma Surgical History History of colonoscopy Status post Mohs surgery History of knee surgery Rt History of eye surgery Rt eye Family History Other Adopted Social History Smoking Status: Never smoker Second Hand Exposure: No; Do You Dip or Chew Tobacco: No; Hx Alcohol Use: Yes Alcohol type: beer, wine and hard liquor Alcohol Intake Frequency: Monthly or Less Hx Substance Use: No Preferred Language: Tristanian Communication Ability: Effective Range Ecologist Required: No Beliefs That Will Affect Care: None marital status: Current Living Situation: [facility] Current Living Situation Comment: [facility]. current occupational status: retired Feels Safe at Home: Yes Assistive Devices: Walker Allergies Allergies Allergy/AdvReac Type Severity Reaction Status Date / Time No Known Allergies Allergy Verified 03/30/23 18:28 Home Meds Home Medications Medication Instructions Recorded Confirmed carbidopa 25 mg-levodopa 100 mg 1 tab PO QID 12/04/21 03/30/23 tablet (Sinemet) cholecalciferol (vitamin D3) 50 50 mcg PO DAILY 12/04/21 03/30/23 mcg (2,000 unit) capsule finasteride 5 mg tablet (Proscar) 5 mg PO QAM 12/04/21 03/30/23 pantoprazole 40 mg tablet,delayed 40 mg PO 3XWK 12/04/21 03/30/23 release cyanocobalamin (vitamin B-12) 1,000 mcg PO DAILY 01/21/22 03/30/23 1,000 mcg tablet (Vitamin B-12) acetaminophen 325 mg tablet 650 mg PO Q4H PRN pain or fever 10/06/22 03/30/23 bisacodyl 10 mg rectal suppository 10 mg AZ Q48H PRN Constipation 10/06/22 03/30/23 (Dulcolax (bisacodyl)) magnesium hydroxide 400 mg/5 mL 30 ml PO Q48H PRN Constipation 10/06/22 03/30/23 oral suspension (Milk of Magnesia) sodium phosphates 19 gram-7 118 ml AZ Q72H PRN Constipation 10/06/22 03/30/23 gram/118 mL enema (Fleet Enema) aspirin 81 mg tablet,delayed 81 mg PO DAILY 03/30/23 03/30/23 release carboxymethylcellulose sodium 1 % 1 drp OPB DIRECTED PRN Dry Eyes 03/30/23 03/30/23 eye drops (Artificial Tears (carboxymethylcellulose)) carboxymethylcellulose sodium 1 % 1 drp OPB BID 03/30/23 03/30/23 eye drops (Artificial Tears (carboxymethylcellulose)) nystatin 100,000 unit/gram topical 1 applic topical BID PRN GROIN 03/30/23 03/30/23 cream EXCORATION polyethylene glycol 3350 17 17 g PO 3XWK 03/30/23 03/30/23 gram/dose oral powder (Miralax) sennosides 8.6 mg tablet (senna) 8.6 mg PO DAILY 03/30/23 03/30/23 Previous Rx's Medication Instructions Recorded metoprolol tartrate 25 mg tablet 12.5 mg (1/2 x 25 mg) PO BID #30 10/10/22 tabs Results & Data (ED) Vital Signs Vital Signs - 24 hr 03/30/23 16:02 03/30/23 16:32 03/30/23 16:33 Temperature 36.8 C Temperature Source Temporal Artery Scan Pulse Rate 85 69 69 Pulse Rate [Apical] Pulse Rate from SpO2 Sensor Respiratory Rate 20 20 Blood Pressure 129/86 Blood Pressure [Left Arm] Blood Pressure Mean 100 Blood Pressure Mean [Left Arm] Pulse Oximetry 100 Oxygen Delivery Method Room Air Sepsis Recent Fever Within 48 Hours No Sepsis New/Unexplained Change in Mental Status N/A Sepsis Action Taken by Nursing No Action Required 03/30/23 16:43 03/30/23 17:00 03/30/23 17:00 Temperature Temperature Source Pulse Rate 70 Pulse Rate [Apical] Pulse Rate from SpO2 Sensor 66 Respiratory Rate 19 Blood Pressure 152/91 H Blood Pressure [Left Arm] Blood Pressure Mean 113 Blood Pressure Mean [Left Arm] Pulse Oximetry 95 Oxygen Delivery Method Room Air Sepsis Recent Fever Within 48 Hours Sepsis New/Unexplained Change in Mental Status Sepsis Action Taken by Nursing 03/30/23 17:19 03/30/23 17:30 03/30/23 17:30 Temperature Temperature Source Pulse Rate 70 Pulse Rate [Apical] Pulse Rate from SpO2 Sensor 72 Respiratory Rate 18 Blood Pressure 143/94 H Blood Pressure [Left Arm] Blood Pressure Mean 110 Blood Pressure Mean [Left Arm] Pulse Oximetry 94 97 Oxygen Delivery Method Room Air Sepsis Recent Fever Within 48 Hours Sepsis New/Unexplained Change in Mental Status Sepsis Action Taken by Nursing 03/30/23 18:00 03/30/23 18:00 03/30/23 18:02 Temperature Temperature Source Pulse Rate 73 Pulse Rate [Apical] 79 Pulse Rate from SpO2 Sensor 75 Respiratory Rate 18 16 Blood Pressure 146/88 H Blood Pressure [Left Arm] 161/97 H Blood Pressure Mean 117 Blood Pressure Mean [Left Arm] 118 Pulse Oximetry 97 94 Oxygen Delivery Method Sepsis Recent Fever Within 48 Hours Sepsis New/Unexplained Change in Mental Status Sepsis Action Taken by Nursing 03/30/23 18:30 03/30/23 18:30 03/30/23 19:00 Temperature Temperature Source Pulse Rate 78 75 Pulse Rate [Apical] Pulse Rate from SpO2 Sensor 74 Respiratory Rate 15 15 Blood Pressure 161/97 H Blood Pressure [Left Arm] Blood Pressure Mean 126 Blood Pressure Mean [Left Arm] Pulse Oximetry 92 Oxygen Delivery Method Sepsis Recent Fever Within 48 Hours Sepsis New/Unexplained Change in Mental Status Sepsis Action Taken by Nursing 03/30/23 19:01 03/30/23 19:01 03/30/23 19:30 Temperature Temperature Source Pulse Rate 81 Pulse Rate [Apical] Pulse Rate from SpO2 Sensor 70 Respiratory Rate 13 Blood Pressure 156/85 H 164/81 H Blood Pressure [Left Arm] Blood Pressure Mean 108 129 Blood Pressure Mean [Left Arm] Pulse Oximetry 96 Oxygen Delivery Method Sepsis Recent Fever Within 48 Hours Sepsis New/Unexplained Change in Mental Status Sepsis Action Taken by Nursing 03/30/23 19:30 03/30/23 20:00 03/30/23 20:00 Temperature Temperature Source Pulse Rate 74 75 Pulse Rate [Apical] Pulse Rate from SpO2 Sensor Respiratory Rate 18 17 Blood Pressure 148/81 H Blood Pressure [Left Arm] Blood Pressure Mean 114 Blood Pressure Mean [Left Arm] Pulse Oximetry Oxygen Delivery Method Sepsis Recent Fever Within 48 Hours Sepsis New/Unexplained Change in Mental Status Sepsis Action Taken by Nursing 03/30/23 20:15 03/30/23 20:30 03/30/23 20:31 Temperature Temperature Source Pulse Rate 73 71 76 Pulse Rate [Apical] Pulse Rate from SpO2 Sensor Respiratory Rate 17 17 Blood Pressure Blood Pressure [Left Arm] Blood Pressure Mean Blood Pressure Mean [Left Arm] Pulse Oximetry Oxygen Delivery Method Sepsis Recent Fever Within 48 Hours Sepsis New/Unexplained Change in Mental Status Sepsis Action Taken by Nursing 03/30/23 20:31 03/30/23 21:00 03/30/23 21:01 Temperature Temperature Source Pulse Rate 73 Pulse Rate [Apical] Pulse Rate from SpO2 Sensor Respiratory Rate 22 Blood Pressure 149/81 H 160/81 H Blood Pressure [Left Arm] Blood Pressure Mean 99 97 Blood Pressure Mean [Left Arm] Pulse Oximetry Oxygen Delivery Method Sepsis Recent Fever Within 48 Hours Sepsis New/Unexplained Change in Mental Status Sepsis Action Taken by Nursing 03/30/23 21:01 03/30/23 21:30 03/30/23 21:30 Temperature Temperature Source Pulse Rate 81 70 Pulse Rate [Apical] Pulse Rate from SpO2 Sensor Respiratory Rate 18 19 Blood Pressure 133/77 Blood Pressure [Left Arm] Blood Pressure Mean 103 Blood Pressure Mean [Left Arm] Pulse Oximetry Oxygen Delivery Method Sepsis Recent Fever Within 48 Hours Sepsis New/Unexplained Change in Mental Status Sepsis Action Taken by Nursing 03/30/23 22:00 03/30/23 22:00 Temperature Temperature Source Pulse Rate 71 Pulse Rate [Apical] Pulse Rate from SpO2 Sensor Respiratory Rate 15 Blood Pressure 138/99 Blood Pressure [Left Arm] Blood Pressure Mean 107 Blood Pressure Mean [Left Arm] Pulse Oximetry Oxygen Delivery Method Sepsis Recent Fever Within 48 Hours Sepsis New/Unexplained Change in Mental Status Sepsis Action Taken by Nursing Laboratory Data 03/30/23 16:45 03/30/23 16:45 Lab Results 03/30/23 03/30/23 Range/Units 16:45 20:59 WBC 7.65 (4.8-10.8) K/ul RBC 4.58 L (4.70-6.10) M/uL Hgb 14.5 (14.0-18.0) g/dl Hct 43.4 (42.0-52.0) % MCV 94.8 (80.0-100.0) fL MCH 31.7 (25.0-34.0) pg MCHC 33.4 (32.0-36.0) g/dL RDW Std Deviation 45.5 (36.4-46.3) fL RDW Coeff of Ramy 13.2 (11.5-14.5) % Plt Count 241 (130-400) K/uL MPV 11.0 (9.4-12.4) fL Immature Gran % (Auto) 1.3 % Neut % (Auto) 62.8 % Lymph % (Auto) 19.6 % [place] % (Auto) 11.9 % Eos % (Auto) 3.9 % Baso % (Auto) 0.5 % Neut # (Auto) 4.80 (1.40-6.50) K/uL Lymph # (Auto) 1.50 (1.20-3.40) K/uL [place] # (Auto) 0.91 H (0.11-0.59) K/uL Eos # (Auto) 0.30 (0.00-0.50) K/uL Baso # (Auto) 0.04 (0.00-0.20) K/uL Immature Gran # (Auto) 0.10 (0.01-0.20) K/uL D-Dimer 540 H* (0-500) ug/L FEU Sodium 139 (136-145) mmol/L Potassium 4.3 (3.5-5.1) mmol/L Chloride 105 (98-107) mmol/L Carbon Dioxide 27 (21-32) mmol/L Anion Gap 7 (3-11) BUN 35 H (6-23) mg/dl Creatinine 1.56 H (0.6-1.4) mg/dl Est Cr Clr Drug Dosing 34.4 ml/min Est GFR ( Amer) 45.6 ml/min Est GFR (Non-Af Amer) 39.4 ml/min BUN/Creatinine Ratio 22.4 H (10-20) Glucose 79 (70-99(Fasting)) mg/dl Calcium 9.9 (8.6-10.3) mg/dl Total Bilirubin 0.7 (0.2-1.0) mg/dl AST 18 (13-39) U/L ALT 5 L (7-52) U/L Alkaline Phosphatase 102 (34-104) U/L Troponin I High Sens 6.9 9.6 (0-20) pg/ml Total Protein 7.0 (6.0-8.3) gm/dl Albumin 4.3 (3.4-5.0) gm/dl Globulin 2.7 (2.5-4.0) gm/dl Albumin/Globulin Ratio 1.6 (0.9-2) Lipase 73 (11-82) U/L Administered Medications Discontinued Medications Ioversol (Optiray 320 125ml) 116 ml IV ONCE ONE Stop: 03/30/23 18:17 Last Admin: 03/30/23 18:17 Dose: 116 ml Documented By: [facility] Imaging Data Radiologist's Impression: Chest X-Ray 03/30/23 17:19 XR chest 1V portable HISTORY: Chest pain, nonspecific COMPARISON: Chest 10/11/2022. FINDINGS: The patient's hand overlies the right lateral hemithorax. No definite pneumothorax. Stable blunting of the left lateral costophrenic sulcus. No pleural effusions. There are old, healed left-sided rib fractures. The visualized lungs are clear. No evidence for pulmonary edema. The heart is normal in size. IMPRESSION: The patient's hand overlies the right lateral hemithorax. No definite acute process within the chest. ACT 112: Negative or not required by law. Electronically signed by: Eben Nichols M.D. 03/30/2023 5:49 PM Chest CTA 03/30/23 18:03 CHEST CTA for PULMONARY ARTERIES CT DOSE: 611.26 mGy.cm HISTORY: Shortness of breath. Left-sided chest pain. TECHNIQUE: Multiaxial CT images of the chest were performed following the intravenous administration of contrast to evaluate the pulmonary arteries. 3D/Maximal intensity projection images were also obtained. Sagittal and coronal reformations were also reviewed. A dose lowering technique was utilized adhering to the principles of ALARA. COMPARISON STUDY: Chest CTA 06/02/2019. FINDINGS: The ascending thoracic aorta measures up to 4 cm in diameter. No evidence for an aortic dissection. Severe coronary artery calcifications are noted. The heart is top normal in size. No pleural or pericardial effusions. Limited views the upper abdomen demonstrate a normal liver, spleen, adrenal glands. Partially visualized right renal hypodense lesions again noted measuring approximately 3.6 cm. This favors a cyst. The thyroid gland enhances normally. Normal esophagus. Stable prominent mediastinal and hilar lymph nodes. These are likely benign given the long-term stability. No progressive lymphadenopathy within the chest. Respiratory motion artifact results in nondiagnostic evaluation of some of the segmental/subsegmental pulmonary arteries. However, the remaining pulmonary arteries show no filling defects to suggest a pulmonary embolus. Multiple old, healed left-sided rib fractures. No acute fractures within the chest. The central airways appear patent. No pneumothorax. A few bibasilar linear densities favor subsegmental atelectasis. Otherwise, no focal lung consolidations to suggest pneumonia. No evidence for pulmonary edema. IMPRESSION: 1. No evidence for a pulmonary embolus with limitations as described above. 2. No focal lung consolidations to suggest pneumonia. 3. No pneumothorax. 4. Old, healed left-sided rib fractures. 5. Mild aneurysmal dilatation of the ascending thoracic aorta measuring up to 4 cm in diameter. No evidence for an aortic dissection. ACT 112: Negative or not required by law. Electronically signed by: Eben Nichols M.D. 03/30/2023 7:45 PM Discharge Plan Visit Data Chief Complaint: Chest Pain Stated Complaint: CHEST PAIN, ED Provider: Nancy Lind Discharge Problem: Chest pain Forms Stand Alone Forms: [facility] Prescriptions Prescriptions: No Action pantoprazole 40 mg tablet,delayed release (DR/EC) 40 mg PO 3XWK Rx Instructions: Friday, Friday, Friday finasteride [Proscar] 5 mg tablet 5 mg PO QAM carbidopa-levodopa [Sinemet] 25-100 mg tablet 1 tab PO QID cholecalciferol (vitamin D3) 50 mcg (2,000 unit) capsule 50 mcg PO DAILY acetaminophen 325 mg Tablet 650 mg PO Q4H MDD 3 GRAMS APAP/24 HOURS PRN (Reason: pain or fever) magnesium hydroxide [Milk of Magnesia] 400 mg/5 mL Suspension 30 ml PO Q48H PRN (Reason: Constipation) Rx Instructions: Only give if resident has no bowel movement for 2 days bisacodyl [Dulcolax (bisacodyl)] 10 mg Suppository 10 mg AZ Q48H PRN (Reason: Constipation) Rx Instructions: Only give if no bowel movement from Milk of Mag Fleet Enema 19-7 gram/118 mL Enema 118 ml AZ Q72H PRN (Reason: Constipation) Rx Instructions: Only give if no bowel movement from Milk of Mag or Dulcolax metoprolol tartrate 25 mg Tablet 12.5 mg PO BID Qty: 30 0RF cyanocobalamin (vitamin B-12) [Vitamin B-12] 1,000 mcg Tablet 1,000 mcg PO DAILY sennosides [senna] 8.6 mg Tablet 8.6 mg PO DAILY aspirin 81 mg Tablet,Delayed Release (Dr/Ec) 81 mg PO DAILY nystatin 100,000 unit/gram Cream 1 applic TOPICAL BID PRN (Reason: GROIN EXCORATION) polyethylene glycol 3350 [Miralax] 17 gram/dose Powder 17 g PO 3XWK Rx Instructions: FRI, FRI, FRI Artificial Tears (cmc) 1 % Drops 1 drp OPB BID Artificial Tears (cmc) 1 % Drops 1 drp OPB DIRECTED PRN (Reason: Dry Eyes) Referrals Referrals: [facility] Pimentel [Primary Care Provider] -
[2023-03-30] MEDS ORDERED: OPTIRAY 320 125ml IV ONE (18:16)
--- NOTE | 2023-03-30 19:46 | CT Scan Report ---
CHEST CTA for PULMONARY ARTERIES CT DOSE: 611.26 mGy.cm HISTORY: Shortness of breath. Left-sided chest pain. TECHNIQUE: Multiaxial CT images of the chest were performed following the intravenous administration of contrast to evaluate the pulmonary arteries. 3D/Maximal intensity projection images were also obta ined. Sagittal and coronal reformations were also reviewed. A dose lowering technique was utilized a dhering to the principles of ALARA. COMPARISON STUDY: Chest CTA 06/02/2019. FINDINGS: The ascending thoracic aorta measures up to 4 cm in diameter. No evidence for an aortic dis section. Severe coronary artery calcifications are noted. The heart is top normal in size. No pleural or pericardial effusions. Limited views the upper abdomen demonstrate a normal liver, spleen, adrena l glands. Partially visualized right renal hypodense lesions again noted measuring approximately 3.6 cm. This favors a cyst. The thyroid gland enhances normally. Normal esophagus. Stable prominent media stinal and hilar lymph nodes. These are likely benign given the long-term stability. No progressive l ymphadenopathy within the chest. Respiratory motion artifact results in nondiagnostic evaluation of s ome of the segmental/subsegmental pulmonary arteries. However, the remaining pulmonary arteries show no filling defects to suggest a pulmonary embolus. Multiple old, healed left-sided rib fractures. No acute fractures within the chest. The central airways appear patent. No pneumothorax. A few bibasilar linear densities favor subsegmental atelectasis. Otherwise, no focal lung consolidations to suggest pneumonia. No evidence for pulmonary edema. IMPRESSION: 1. No evidence for a pulmonary embolus with limitations as described above. 2. No focal lung consolidations to suggest pneumonia. 3. No pneumothorax. 4. Old, healed left-sided rib fractures. 5. Mild aneurysmal dilatation of the ascending thoracic aorta measuring up to 4 cm in diameter. No ev idence for an aortic dissection. ACT 112: Negative or not required by law. Electronically signed by: Eben Nichols M.D. 03/30/2023 7:45 PM
[2023-03-30] MEDS ORDERED: CARBIDOPA/LEVODOPA 25/100MG TAB PO STA (23:17)
--- NOTE | 2023-03-30 23:20 | History & Physical Report ---
Date of Service March 30, 2023 Assessment & Plan (1) Chest pain: Plan: 87yo Male with PMH HTN irregular heart beat dementia parkinson's disease here for concern chest pain. Chest pain -tropx2 normal -CT chest negative for PE -WBC wnl -no pain on palpation of chest, no rashes visualized -echo 10/27 EF 60-65% -D dimer 540 -HEART score 3, overall low risk for major cardiac event -will admit to med tele -may arrange stress echo in outpatient NADINE -creat 1.56 -ordered NSS 125ml/h -trend bmp HTN -continue metoprolol BPH -continue finasteride Parkinson's -continue carbidopa/levodopa GERD -continue protonix FENa: soft diet Code Status: Full DVT PPX: aspirin Dispo: med/tele Katherine Angel D.O. PGY 3, FCM (2) Hypertension: (3) Dementia: (4) Parkinson disease: (5) NADINE (acute kidney injury): History of Present Illness Primary Care Provider: [facility] 87yo Male with PMH HTN irregular heart beat dementia parkinson's disease here for concern chest pain. Part of history from and daughter. Patient states he was resting when he developed left sided chest pain on his ribs under his breast, pressing on it hurt, denies recent falls or injuries, states the pain felt 'medium' and did not travel anywhere. Patient states it disappeared either an hour later or after mealtime. Denies any pain with deep breath. Describes mild left arm pain. Currently denies any chest pain. Denies any fever, SOB, N/V, abd pain, rashes. Patient denies any history of heart attacks, heart disease, he follows with Dr. Gayle in cardiology presumably for irregular heart rate. Patient is a resident of [facility], has nursing assist with medications. He has a POLST form for DNR, POA is Vianey, however after discussion with patient and he would like to be full code at this time. Allergies Allergy/AdvReac Type Severity Reaction Status Date / Time No Known Allergies Allergy Verified 03/30/23 18:28 Home Medications Medication Instructions Recorded Confirmed Type carbidopa 25 mg-levodopa 100 mg 1 tab PO QID 12/04/21 03/30/23 History tablet (Sinemet) cholecalciferol (vitamin D3) 50 50 mcg PO DAILY 12/04/21 03/30/23 History mcg (2,000 unit) capsule finasteride 5 mg tablet (Proscar) 5 mg PO QAM 12/04/21 03/30/23 History pantoprazole 40 mg tablet,delayed 40 mg PO 3XWK 12/04/21 03/30/23 History release cyanocobalamin (vitamin B-12) 1,000 mcg PO DAILY 01/21/22 03/30/23 History 1,000 mcg tablet (Vitamin B-12) acetaminophen 325 mg tablet 650 mg PO Q4H PRN pain or fever 10/06/22 03/30/23 History bisacodyl 10 mg rectal suppository 10 mg OK Q48H PRN Constipation 10/06/2203/08 History (Dulcolax (bisacodyl)) magnesium hydroxide 400 mg/5 mL 30 ml PO Q48H PRN Constipation 10/06/22 03/30/23 History oral suspension (Milk of Magnesia) sodium phosphates 19 gram-7 118 ml OK Q72H PRN Constipation 10/06/22 03/30/23 History gram/118 mL enema (Fleet Enema) metoprolol tartrate 25 mg tablet 12.5 mg (1/2 x 25 mg) PO BID #30 10/10/22 03/30/23 Rx tabs aspirin 81 mg tablet,delayed 81 mg PO DAILY 03/30/23 03/30/23 History release carboxymethylcellulose sodium 1 % 1 drp OPB DIRECTED PRN Dry Eyes 03/30/23 03/30/23 History eye drops (Artificial Tears (carboxymethylcellulose)) carboxymethylcellulose sodium 1 % 1 drp OPB BID 03/30/23 03/30/23 History eye drops (Artificial Tears (carboxymethylcellulose)) nystatin 100,000 unit/gram topical 1 applic topical BID PRN GROIN 03/30/23 03/30/23 History cream EXCORATION polyethylene glycol 3350 17 17 g PO 3XWK 03/30/23 03/30/23 History gram/dose oral powder (Miralax) sennosides 8.6 mg tablet (senna) 8.6 mg PO DAILY 03/30/23 03/30/23 History Past Med/Surg History Medical History (Updated 03/30/23 @ 22:46 by Nancy Lind MD) PVC (premature ventricular contraction) Aortic stenosis Mitral regurgitation Lab test negative for COVID-19 virus Acute dehydration Weakness Sepsis Dementia Resides in [facility] facility current resident of [facility] Parkinson disease Dysphonia Dysarthria and anarthria 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 stage III Dysphagia Other abnormalities of gait and mobility Weakness Muscle spasm of back Hyperlipidemia Diverticulosis of large intestine without perforation or abscess without bleeding History of blood clots superficial - LLE - 2 years ago, RLE - approx 1 year ago? Poor historian Hearing deficit [place] left Irregular heart rhythm follows w/ Dr. 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 current occupational status: retired Other Information That Helps Us Care for You: No Feels Safe at Home: Declines to Answer Assistive Devices: Cane, Glasses and Walker Physical Exam Constitutional: WD/WN, vitals as above Eyes: Right eye droop, chronic ENMT: external ear and nose normal, oropharynx normal Neck: trachea midline, no thyromegaly Respiratory: normal respiratory effort, lungs clear to auscultation Cardiovascular: Rate/Rhythm: regular rate and regular rhythm Heart Sounds: + murmur (systolic) Extremities: no edema Gastrointestinal (Abdomen): normal bowel sounds, soft, nontender, no hepatosplenomegaly Musculoskeletal: No pain on palpation to left chest Skin: no rashes, warm and dry Neurologic: CN's II-XI intact bilaterally Occasional word finding difficulty and annunciation difficulty Results & Data Results & Data Vital Signs (Past 12 Hours) Vital Signs Temp Pulse Pulse Resp BP BP Pulse Ox 03/30/23 22:00 138/99 03/30/23 22:00 71 15 03/30/23 21:30 133/77 03/30/23 21:30 70 19 03/30/23 21:01 81 18 03/30/23 21:01 160/81 H 03/30/23 21:00 73 22 03/30/23 20:31 149/81 H 03/30/23 20:31 76 17 03/30/23 20:30 71 17 03/30/23 20:15 73 03/30/23 20:00 148/81 H 03/30/23 20:00 75 17 03/30/23 19:30 74 18 03/30/23 19:30 164/81 H 03/30/23 19:01 81 13 96 03/30/23 19:01 156/85 H 03/30/23 19:00 75 15 92 03/30/23 18:30 161/97 H 03/30/23 18:30 78 15 03/30/23 18:02 79 16 161/97 H 94 03/30/23 18:00 73 18 97 03/30/23 18:00 146/88 H 03/30/23 17:30 143/94 H 03/30/23 17:30 70 18 97 03/30/23 17:19 94 03/30/23 17:00 70 19 95 03/30/23 17:00 152/91 H 03/30/23 16:43 03/30/23 16:33 69 03/30/23 16:32 69 20 03/30/23 16:02 36.8 C 85 20 129/86 100 O2 Del Method 03/30/23 22:00 03/30/23 22:00 03/30/23 21:30 03/30/23 21:30 03/30/23 21:01 03/30/23 21:01 03/30/23 21:00 03/30/23 20:31 03/30/23 20:31 03/30/23 20:30 03/30/23 20:15 03/30/23 20:00 03/30/23 20:00 03/30/23 19:30 03/30/23 19:30 03/30/23 19:01 03/30/23 19:01 03/30/23 19:00 03/30/23 18:30 03/30/23 18:30 03/30/23 18:02 03/30/23 18:00 03/30/23 18:00 03/30/23 17:30 03/30/23 17:30 03/30/23 17:19 Room Air 03/30/23 17:00 03/30/23 17:00 03/30/23 16:43 Room Air 03/30/23 16:33 03/30/23 16:32 03/30/23 16:02 Room Air Supervising Physician Co-Signing Physician Notes Attending addendum: I have physically seen this patient, have supervised the medical residents activities, and agree with the H&P unless as otherwise noted. Assessment and Plan: Chest pain/hypertension/aortic stenosis/mitral regurgitation- The patient will be admitted to telemetry for serial cardiac enzymes, serial EKG's, cardiac rhythm monitoring Troponin initially 6.9, with follow-up 9.6 Most recent echo 10/27 with ejection fraction 60-65% Heart score of 3 D-dimer 540, with CTA chest negative for PE Acute kidney injury- Creatinine 1.56 NSS at 125 mL/h, repeat laboratories in a.m. Hypertension continue metoprolol- Parkinson's- Continue carbidopa levodopa Resident Activity Tracking Resident Involvement: Resident Care Provided Care Provided: Adult Hospital Medicine
[2023-03-30] MEDS ORDERED: SODIUM CHLORIDE 0.9% 1,000 ML IV SCH (23:45)
[2023-03-31] MEDS ORDERED: POLYETHYLENE (MIRALAX) 17 GM PACK PO PRN (00:56)
--- NOTE | 2023-03-31 06:47 | Electrocardiogram Report ---
Test Reason : Blood Pressure : / mmHG Vent. Rate : 071 BPM Atrial Rate : 071 BPM P-R Int : 144 ms QRS Dur : 086 ms QT Int : 408 ms P-R-T Axes : 013 -25 024 degrees QTc Int : 443 ms Sinus rhythm with sinus arrhythmia with occasional Premature ventricular complexes Nonspecific ST abnormality Abnormal ECG When compared with ECG of 11-OCT-2022 17:26, Premature ventricular complexes are now Present Confirmed by Jose Ro ([id number]) on 03/31/2023 6:46:34 AM Referred By: Doyle Pimentel Confirmed By:Jose Ro
[2023-03-31 06:59] LABS: BUN Creatinine Ratio 19.4 (10-20); Calcium 9.7 mg/dl (8.6-10.3); Creatinine Clr Calc Pharmacy 40.1 ml/min; Est GFR (African American) 54.8 ml/min; Est GFR (Non-African American) 47.3 ml/min; Potassium 4.9 mmol/L (3.5-5.1)
[2023-03-31] MEDS: CARBIDOPA/LEVODOPA 25/100MG TAB PO SCH ×2 (08:01→12:51)
[2023-03-31 08:13] LABS: Troponin I High Sensitivity 11.2 pg/ml (0-20)
[2023-03-31] MEDS ORDERED: METOPROLOL TARTRATE 25 MG TAB PO SCH (09:00)
[2023-03-31] MEDS ORDERED: FINASTERIDE 5 MG TAB PO SCH (09:00)
[2023-03-31] MEDS ORDERED: CHOLECALCIFEROL 1,000 UNITS 25 MCG TAB PO SCH (09:00)
[2023-03-31] MEDS ORDERED: PANTOprazole 40 MG TAB PO SCH (09:00)
[2023-03-31] MEDS ORDERED: ASPIRIN 81 MG ECTAB PO SCH (09:00)
[2023-03-31] MEDS ORDERED: CYANOCOBALAMIN (B-12) 500 MCG TABLET PO SCH (09:00)
[2023-03-31] MEDS ORDERED: SENNA 8.6 MG TAB PO SCH (09:00)
[2023-03-31] MEDS ORDERED: POLYETHYLENE (MIRALAX) 17 GM PACK PO SCH (09:00)
--- NOTE | 2023-03-31 10:52 | Discharge Summary ---
Date of Service March 31, 2023 Admission HPI Per Admitting Provider 87yo Male with PMH HTN irregular heart beat dementia parkinson's disease here for concern chest pain. Part of history from and daughter. Patient states he was resting when he developed left sided chest pain on his ribs under his breast, pressing on it hurt, denies recent falls or injuries, states the pain felt 'medium' and did not travel anywhere. Patient states it disappeared either an hour later or after mealtime. Denies any pain with deep breath. Describes mild left arm pain. Currently denies any chest pain. Denies any fever, SOB, N/V, abd pain, rashes. Patient denies any history of heart attacks, heart disease, he follows with Dr. Gayle in cardiology presumably for irregular heart rate. Patient is a resident of [facility], has nursing assist with medications. He has a POLST form for DNR, POA is Vianey, however after discussion with patient and he would like to be full code at this time. Discharge Data Allergies Allergy/AdvReac Type Severity Reaction Status Date / Time No Known Allergies Allergy Verified 03/30/23 18:28 Consultations 03/30/23 22:40 ED Decision to Admit Stat Ordered Studies 03/30/23 18:03 CT for pulmonary embolism PE [CT angio chest PE protocol] Stat Discharge Plan Discharge Items Patient Disposition: Transfer Longterm Fac Reason For Visit: CHEST PAIN Discharge Diagnosis: Atypical chest pain Activity: Resume your previous activity Non-emergency contact: Primary Care Provider Call non-emergency contact if: you have any medication questions and your symptoms worsen Follow-up/Referrals: Doyle Pimentel [Primary Care Provider] - Diet: Other - See Diet Comment Diet Comment: No change in diet Addtl Attending Provider Instructions: You were observed overnight from March 30 - 2022 due to atypica chest pain. Serial troponins ruled out a heart attack. No pneumonia or pulmonary embolism (blood clot) on imaging. Recommend following up with your toxicology supervisor to discuss further investigations if necessary although suspect most likely pain was musculoskeletal given worse on palpation and prior rib fractures on this side. Please return to the ER if recurrent chest pains especially if worse on exertion. Pending Studies at Discharge: No Stand-Alone Forms: My [facility] Skilled Items Patient informed of condition?: Yes DNR: No Discharge Level of Care: Skilled Communicable Disease: No (History of UTI VRE but nothing currently) Discharge Prognosis: Stable Lines: None Urinary Catheter: No Medications and DC Order Prescriptions: Continued pantoprazole 40 mg tablet,delayed release (DR/EC) 40 mg PO 3XWK Rx Instructions: Friday, Friday, Friday finasteride [Proscar] 5 mg tablet 5 mg PO QAM carbidopa-levodopa [Sinemet] 25-100 mg tablet 1 tab PO QID cholecalciferol (vitamin D3) 50 mcg (2,000 unit) capsule 50 mcg PO DAILY acetaminophen 325 mg Tablet 650 mg PO Q4H MDD 3 GRAMS APAP/24 HOURS PRN (Reason: pain or fever) magnesium hydroxide [Milk of Magnesia] 400 mg/5 mL Suspension 30 ml PO Q48H PRN (Reason: Constipation) Rx Instructions: Only give if resident has no bowel movement for 2 days bisacodyl [Dulcolax (bisacodyl)] 10 mg Suppository 10 mg MT Q48H PRN (Reason: Constipation) Rx Instructions: Only give if no bowel movement from Milk of Mag Fleet Enema 19-7 gram/118 mL Enema 118 ml MT Q72H PRN (Reason: Constipation) Rx Instructions: Only give if no bowel movement from Milk of Mag or Dulcolax metoprolol tartrate 25 mg Tablet 12.5 mg PO BID Qty: 30 0RF cyanocobalamin (vitamin B-12) [Vitamin B-12] 1,000 mcg Tablet 1,000 mcg PO DAILY sennosides [senna] 8.6 mg Tablet 8.6 mg PO DAILY aspirin 81 mg Tablet,Delayed Release (Dr/Ec) 81 mg PO DAILY nystatin 100,000 unit/gram Cream 1 applic TOPICAL BID PRN (Reason: GROIN EXCORATION) polyethylene glycol 3350 [Miralax] 17 gram/dose Powder 17 g PO 3XWK Rx Instructions: FRI, WED, FRI Artificial Tears (cmc) 1 % Drops 1 drp OPB BID Artificial Tears (cmc) 1 % Drops 1 drp OPB DIRECTED PRN (Reason: Dry Eyes) Discharge Orders: Discharge Order (Routine); Ordered 03/31/23 Ordered By: Wade Ferro Admission Data Admit Date/Time: 03/30/23 23:17 Attending Provider: Wade Ferro Admit Provider: Katherine Angel Primary Care Provider: Doyle Pimentel Other Providers: Ramon Fernández
--- NOTE | 2023-04-01 12:12 | Billing Data ---
Date of Service April 01, 2023 Coding Level of Care Code 82568 INT INP/OBS CARE
== END 2023-03-31 13:14 ==
LOC: ED 16:02 → 2S 16:02 → SUATTDRO 23:17 → 2S 03-31 00:06

== ENCOUNTER 2023-09-05 16:54 | Inpatient (IN) ==
[2023-09-05 17:49] LABS: Basophils # (auto) 0.02 K/uL (0.00-0.20); Basophils % (auto) 0.3 %; Eosinophils # (auto) 0.15 K/uL (0.00-0.50); Eosinophils % (auto) 2.2 %; Hematocrit (blood only) 42.2 % (42.0-52.0); Hemoglobin 13.9 g/dl (14.0-18.0); Immature Granulocytes # (auto) 0.04 K/uL (0.01-0.20); Immature Granulocytes % (auto) 0.6 %; Lymphocytes # (auto) 0.56 K/uL (1.20-3.40); Lymphocytes % (auto) 8.3 %; Mean Corpuscular Hgb Conc 32.9 g/dL (32.0-36.0); Monocytes # (auto) 0.59 K/uL (0.11-0.59); Monocytes % (auto) 8.8 %; Neutrophils # (auto) 5.36 K/uL (1.40-6.50); Neutrophils % (auto) 79.8 %; Platelet Count 175 K/uL (130-400); RDW Coefficient of Variation 13.8 % (11.5-14.5); RDW Standard Deviation 47.4 fL (36.4-46.3); Red Blood Count 4.49 M/uL (4.70-6.10); White Blood Count 6.72 K/ul (4.8-10.8)
[2023-09-05 18:08] LABS: Albumin Level 4.2 gm/dl (3.4-5.0); BUN Creatinine Ratio 20.7 (10-20); Bilirubin Direct 0.1 mg/dl (0-0.2); Bilirubin,Total 0.7 mg/dl (0.2-1.0); Calcium 9.2 mg/dl (8.6-10.3); Creatinine Clr Calc Pharmacy 33.8 ml/min; Est GFR (African American) 41.4 ml/min; Est GFR (Non-African American) 35.7 ml/min; Potassium 4.5 mmol/L (3.5-5.1)
[2023-09-05 18:09] LABS: Appearance Urine Clear (Clear); Bacteria Urine Automated None Seen (None Seen); Bilirubin Urine Negative (Negative); Blood Urine Negative (Negative); Cast Urine Automated 0-2 /lpf (0-2); Color Urine Yellow; Epithelial Cell Urine Auto 0-2 /hpf (0-2); Glucose Urine UA Negative (Negative); Ketones Urine Trace (Negative); Leukocyte Esterase Urine Negative (Negative); Nitrite Urine Negative (Negative); Protein Urine Trace (Negative); RBC Urine Automated 0-2 /hpf (0-2); Specific Gravity Urine 1.022 (1.000-1.030); Urobilinogen Urine Negative (Negative); WBC Urine Automated 0-5 /hpf (0-5); pH Urine 5.5 (4.5-7.5)
[2023-09-05] MEDS: SODIUM CHLORIDE 0.9% 1,000 ML IV ONE (18:09)
--- NOTE | 2023-09-05 18:20 | XRay Report ---
XR chest 1V portable CLINICAL HISTORY: Sepsis. COMPARISON STUDY: Chest radiograph and chest CT March 30, 2023. FINDINGS: Lung volumes are normal. Lungs are clear. There is no pneumothorax or pleural effusion. Car diomegaly is unchanged. Mediastinal contours are normal. There is no evidence for pulmonary edema. Ol d left-sided rib fractures are incidentally noted. IMPRESSION: No acute cardiopulmonary findings. No significant change in appearance of the chest. ACT 112: Negative or not required by law. Electronically signed by: Ez Merino M.D. 09/05/2023 6:19 PM
--- NOTE | 2023-09-05 18:20 | CT Scan Report ---
CT OF THE ABDOMEN AND PELVIS WITHOUT CONTRAST CLINICAL HISTORY: previous UTIS, fever COMPARISON STUDY: CT of the abdomen June 11, 2023. CT of the abdomen pelvis October 06, 2022. TECHNIQUE: Axial images of the abdomen and pelvis were obtained without IV contrast. Images were revi ewed in the axial, sagittal, and coronal planes. Automated exposure control was utilized for the abdiel dy. A dose lowering technique was utilized adhering to the principles of ALARA. FINDINGS: Visualized portions of the lung bases are unremarkable. No pneumatosis, free air or portal venous gas is present. There are no renal or bladder calculi. There is an equivocal punctate nonobstr ucting distal right ureteral calculus on image 293. This may be within the ureteral wall. Bladder is collapsed. Bladder wall thickening is again noted. Numerous water attenuation bilateral renal lesions were shown to represent cysts on prior CT. A solid lesion within the superior pole of the right kidn ey on image 98 of 377 measures 2.7 cm in AP dimension. This was shown to represent an enhancing lesio n on prior CT. There is no evidence for a bowel obstruction. There is a large amount of stool within the rectum. Colonic diverticulosis without evidence for acute diverticulitis. There is no abdominal o r pelvic lymphadenopathy. There is no ascites. No suspicious lesions are identified within the visual ized skeletal structures. IMPRESSION: 1. No hydronephrosis. Equivocal punctate nonobstructing distal right ureteral calculus, likely artifa ctual or within the ureteral wall. 2. Colonic diverticulosis. No evidence for acute diverticulitis. 3. Large amount of stool within the rectum. 4. Bladder wall thickening which could be correlated with urinalysis. 5. Redemonstration of a solid right upper pole renal lesion, similar to prior CT. ACT 112: Negative or not required by law. Electronically signed by: Ez Merino M.D. 09/05/2023 6:18 PM
[2023-09-05 18:26] LABS: Adenovirus PCR Not Detected (NotDetected); Bordetella parapertussis PCR Not Detected (NotDetected); Bordetella pertussis PCR Not Detected (NotDetected); Chlamydia pneumoniae PCR Not Detected (NotDetected); Coronavirus 229E PCR Not Detected (NotDetected); Coronavirus CoV-2 (COVID19)PCR Not Detected (NotDetected); Coronavirus HKU1 PCR Not Detected (NotDetected); Coronavirus NL63 PCR Not Detected (NotDetected); Coronavirus OC43PCR Not Detected (NotDetected); Human Metapneumovirus PCR Not Detected (NotDetected); Influenza A PCR Not Detected (NotDetected); Influenza B PCR Not Detected (NotDetected); Mycoplasma pneumoniae PCR Not Detected (NotDetected); Parainfluenza Virus 1 PCR Not Detected (NotDetected); Parainfluenza Virus 2 PCR Not Detected (NotDetected); Parainfluenza Virus 3 PCR Not Detected (NotDetected); Parainfluenza Virus 4 PCR Not Detected (NotDetected); Respiratory Syncytial VirusPCR Not Detected (NotDetected); Rhinovirus/Enterovirus PCR Not Detected (NotDetected)
--- NOTE | 2023-09-05 18:43 | Emergency Department Note ---
Impression & Plan Encephalopathy, Cystitis, Acute kidney injury ED Provider Note NAME: ROLANDA TELLO AGE: 87 SEX: M : 1935 ARRIVES VIA: Ambulance INFORMANT: Patient, ED PROVIDER(S): Solange Bansal MD CHIEF COMPLAINT: Altered mental status HPI: This is an 87-year-old male with history of dementia, Parkinson's recurrent UTI presenting for altered mental status. Patient is with family who states that he has been shaking more often, talking less. They are concerned a UTI previously and he was started antibiotics. He has not gotten better and only worse. Shaking more often, now has a fever. Patient himself cannot provide any history. ROS: See above HPI for pertinent positives & negatives. A total of 10 systems reviewed and were otherwise negative. PHYSICAL EXAMINATION: General: Incomprehensible speech, tremulous, chronically ill-appearing Head: Normocephalic temporal wasting Eyes: Normal inspection, extraocular muscles intact Ear, nose, throat: Normal external exam Neck: Normal range of motion Respiratory: lungs clear to auscultation bilaterally Cardiovascular: Regular rate/rhythm, no murmur GI: Soft, nontender Extremities: nontender, moves all extremities Neuro: Awake, symmetric face Skin: Warm, dry, and intact MEDICAL DECISION MAKING: This is a 89-year-old male with history of Parkinson's, dementia presenting for altered mental status. Family is with patient states he is not his usual baseline and shaking more and less responsive. -Sepsis workup was ordered at triage as well as CT of the abdomen/pelvis without contrast -CT imaging reveals signs of cystitis -Chest Xray independently interpreted by me showing no pneumothorax, focal opacity, or pleural effusions. -Lab work reveals no leukocytosis or anemia. Lactic acid was elevated over 2. Creatinine is elevated at 1.79. Blood cultures currently pending. Urinalysis reveals no signs of UTI at this time. -Patient continues to be altered, will admit for further workup Differential diagnosis: UTI, sepsis, rigors, encephalopathy ER treatment provided: See below Diagnostics interpreted by me: ECG: None Cardiac Monitoring: An order was placed for continuous cardiac monitoring. The monitor shows a rate of 57 with sinus rhythm. Laboratory studies: As stated above and show below. Imaging studies: See below. Past Med/Surg History Problem List (Updated 09/09/23 @ 01:32 by Solange Bansal MD) Acute kidney injury (Acute) Cystitis (Acute) Encephalopathy (Acute) Chest pain (Acute) Elevated troponin Severe sepsis PVC (premature ventricular contraction) Aortic stenosis Mitral regurgitation Generalized weakness Renal mass Acute UTI (urinary tract infection) (Acute) Conjunctivitis Superficial thrombophlebitis Irregular heart rhythm follows w/ Dr. Gayle Dementia Ambulatory dysfunction Weakness (Acute) COVID-19 (Acute) Parkinson disease Recurrent UTI (urinary tract infection) (Acute) Encounter for pre-operative examination Hypertension (Acute) Altered mental status (Acute) Pneumonia (Acute) Weakness on right side of face Laryngopharyngeal reflux (LPR) Acquired deviated nasal septum Chronic rhinitis Retention of urine, unspecified BPH w urinary obs/LUTS History of SCC (squamous cell carcinoma) of skin History of basal cell carcinoma Medical History PVC (premature ventricular contraction) Aortic stenosis Mitral regurgitation Lab test negative for COVID-19 virus Acute dehydration Weakness Sepsis Dementia Resides in long term facility Parkinson disease Dysphonia Dysarthria and anarthria 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 stage III Dysphagia Other abnormalities of gait and mobility Weakness Muscle spasm of back Hyperlipidemia Diverticulosis of large intestine without perforation or abscess without bleeding History of blood clots Poor historian Hearing deficit Irregular heart rhythm Hypertension BPH w urinary obs/LUTS History of SCC (squamous cell carcinoma) of skin History of basal cell carcinoma Surgical History History of colonoscopy Status post Mohs surgery History of knee surgery History of eye surgery Family History Other Adopted Social History Smoking Status: Unknown if ever smoked Second Hand Exposure: No; Do You Dip or Chew Tobacco: No; Preferred Language: Mohawk Communication Ability: Impaired 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 Beliefs That Will Affect Care: None marital status: Current Living Situation: Intermediate Current Living Situation Comment: [employer] current occupational status: retired Feels Safe at Home: Declines to Answer Assistive Devices: Walker and Wheelchair Allergies Allergies Allergy/AdvReac Type Severity Reaction Status Date / Time No Known Allergies Allergy Verified 09/05/23 18:23 Home Meds Home Medications Medication Instructions Recorded Confirmed carbidopa 25 mg-levodopa 100 mg 1 tab PO QID 12/04/21 09/05/23 tablet (Sinemet) cholecalciferol (vitamin D3) 50 50 mcg PO DAILY 12/04/21 09/05/23 mcg (2,000 unit) capsule finasteride 5 mg tablet (Proscar) 5 mg PO QAM 12/04/21 09/05/23 pantoprazole 40 mg tablet,delayed 40 mg PO 3XWK 12/04/21 09/05/23 release cyanocobalamin (vitamin B-12) 1,000 mcg PO DAILY 01/21/22 09/05/23 1,000 mcg tablet (Vitamin B-12) acetaminophen 325 mg tablet 650 mg PO Q4H PRN pain or fever 10/06/22 09/05/23 bisacodyl 10 mg rectal suppository 10 mg W[place] Q48H PRN Constipation 10/06/22 09/05/23 (Dulcolax (bisacodyl)) magnesium hydroxide 400 mg/5 mL 30 ml PO Q48H PRN Constipation 10/06/22 09/05/23 oral suspension (Milk of Magnesia) sodium phosphates 19 gram-7 118 ml W[place] Q72H PRN Constipation 10/06/22 09/05/23 gram/118 mL enema (Fleet Enema) aspirin 81 mg tablet,delayed 81 mg PO DAILY 03/30/23 09/05/23 release polyethylene glycol 3350 17 17 g PO 3XWK 03/30/23 09/05/23 gram/dose oral powder (Miralax) sennosides 8.6 mg tablet (senna) 8.6 mg PO DAILY 03/30/23 09/05/23 acetaminophen 650 mg rectal 650 mg W[place] Q4H PRN FEVER <99.5 09/05/23 09/05/23 suppository carboxymethylcellulose sodium 0.5 1 drp OPB BID 09/05/23 09/05/23 % eye drops (Refresh Tears) carboxymethylcellulose sodium 0.5 1 drp OPB BID PRN Dry Eyes 09/05/23 09/05/23 % eye drops (Refresh Tears) clotrimazole 1 % topical cream 1 applic topical BID PRN Rash 09/05/23 09/05/23 (Lotrimin AF (clotrimazole)) hydrocortisone 1 % topical cream 1 applic topical BID PRN LEFT 09/05/23 09/05/23 EAR/NOSE/OUTER EYE RASH nyxcwobw-dwmith-FD-thonzonm 3.3 4 drp OTL DAILY PRN 09/05/23 09/05/23 mg-3 mg-10 mg-0.5 mg/mL ear INFLAMMATION/ITCHING drops,susp selenium sulfide 1 % shampoo 1 applic topical 2XWK 09/05/23 09/05/23 (Selsun Blue) sulfamethoxazole 800 1 tab PO BID 09/05/23 09/05/23 mg-trimethoprim 160 mg tablet (Bactrim DS) triamcinolone acetonide 0.1 % 1 applic topical BID PRN Rash 09/05/23 09/05/23 topical cream Previous Rx's Medication Instructions Recorded metoprolol tartrate 25 mg tablet 12.5 mg (1/2 x 25 mg) PO BID #30 10/10/22 tabs Results & Data (ED) Vital Signs Vital Signs - 24 hr 09/05/23 17:06 09/05/23 17:06 09/05/23 17:06 Temperature 38.9 C H 38.9 C H Temperature Source Axillary Axillary Pulse Rate 89 Pulse Rate [Apical] 87 Pulse Rhythm Regular Pulse Rhythm [Apical] Regular Pulse Strength Normal Pulse Strength [Apical] Normal Respiratory Rate 28 H 34 H Respiratory Effort / Characteristics Spontaneous Respiratory Depth Shallow Shallow Blood Pressure 169/85 H Blood Pressure [Right Arm] 169/85 H Blood Pressure Mean 113 Blood Pressure Mean [Right Arm] 113 Blood Pressure Position Sitting Pulse Oximetry 90 90 90 Oxygen Delivery Method Room Air Room Air Room Air Sepsis Recent Fever Within 48 Hours Yes Sepsis New/Unexplained Change in Mental Status Yes Sepsis Action Taken by Nursing Physician Notified 09/05/23 17:09 Temperature Temperature Source Pulse Rate 91 H Pulse Rate [Apical] Pulse Rhythm Pulse Rhythm [Apical] Pulse Strength Pulse Strength [Apical] Respiratory Rate Respiratory Effort / Characteristics Respiratory Depth Blood Pressure Blood Pressure [Right Arm] Blood Pressure Mean Blood Pressure Mean [Right Arm] Blood Pressure Position Pulse Oximetry Oxygen Delivery Method Sepsis Recent Fever Within 48 Hours Sepsis New/Unexplained Change in Mental Status Sepsis Action Taken by Nursing Laboratory Data 09/08/23 06:39 09/08/23 06:39 Lab Results 09/05/23 09/05/23 09/05/23 Range/Units 17:14 17:17 17:19 WBC 6.72 (4.8-10.8) K/ul RBC 4.49 L (4.70-6.10) M/uL Hgb 13.9 L (14.0-18.0) g/dl Hct 42.2 (42.0-52.0) % MCV 94.0 (80.0-100.0) fL MCH 31.0 (25.0-34.0) pg MCHC 32.9 (32.0-36.0) g/dL RDW Std Deviation 47.4 H (36.4-46.3) fL RDW Coeff of Ramy 13.8 (11.5-14.5) % Plt Count 175 (130-400) K/uL MPV 10.0 (9.4-12.4) fL Immature Gran % (Auto) 0.6 % Neut % (Auto) 79.8 % Lymph % (Auto) 8.3 % Dunn % (Auto) 8.8 % Eos % (Auto) 2.2 % Baso % (Auto) 0.3 % Neut # (Auto) 5.36 (1.40-6.50) K/uL Lymph # (Auto) 0.56 L (1.20-3.40) K/uL Dunn # (Auto) 0.59 (0.11-0.59) K/uL Eos # (Auto) 0.15 (0.00-0.50) K/uL Baso # (Auto) 0.02 (0.00-0.20) K/uL Immature Gran # (Auto) 0.04 (0.01-0.20) K/uL Sodium 139 (136-145) mmol/L Potassium 4.5 (3.5-5.1) mmol/L Chloride 106 (98-107) mmol/L Carbon Dioxide 24 (21-32) mmol/L Anion Gap 9 (3-11) BUN 35 H (6-23) mg/dl Creatinine 1.69 H (0.6-1.4) mg/dl Est Cr Clr Drug Dosing 33.8 ml/min Est GFR ( Amer) 41.4 ml/min Est GFR (Non-Af Amer) 35.7 ml/min BUN/Creatinine Ratio 20.7 H (10-20) Glucose 118 H (70-99(Fasting)) mg/dl Lactate 2.4 H* (0.4-2.0) mmol/L Calcium 9.2 (8.6-10.3) mg/dl Total Bilirubin 0.7 (0.2-1.0) mg/dl Direct Bilirubin 0.1 (0-0.2) mg/dl AST 29 (13-39) U/L ALT 7 (7-52) U/L Alkaline Phosphatase 110 H (34-104) U/L Total Protein 7.0 (6.0-8.3) gm/dl Albumin 4.2 (3.4-5.0) gm/dl Lipase 40 (11-82) U/L Urine Color Urine Appearance (Clear) Urine pH (4.5-7.5) Ur Specific [place] (1.000-1.030) Urine Protein (Negative) Urine Glucose (UA) (Negative) Urine Ketones (Negative) Urine Blood (Negative) Urine Nitrite (Negative) Urine Bilirubin (Negative) Urine Urobilinogen (Negative) Ur Leukocyte Esterase (Negative) Urine WBC (Auto) (0-5) /hpf Urine RBC (Auto) (0-2) /hpf U Hyaline Cast (Auto) (0-2) /lpf U Epithel Cells (Auto) (0-2) /hpf Urine Bacteria (Auto) (None Seen) Adenovirus (PCR) Not Detected (NotDetected) B. pertussis DNA (PCR) Not Detected (NotDetected) B.parapertussis DNA PCR Not Detected (NotDetected) C. pneumoniae DNA (PCR) Not Detected (NotDetected) Coronavirus OC43 (PCR) Not Detected (NotDetected) Coronavirus HKU1 (PCR) Not Detected (NotDetected) Coronavirus 229E (PCR) Not Detected (NotDetected) SARS-CoV-2 (PCR) Not Detected (NotDetected) Coronavirus NL63 (PCR) Not Detected (NotDetected) Human Metapneumovir PCR Not Detected (NotDetected) Influenza Type A (PCR) Not Detected (NotDetected) Influenza Type B (PCR) Not Detected (NotDetected) M. pneumoniae (PCR) Not Detected (NotDetected) Parainfluenza 1 (PCR) Not Detected (NotDetected) Parainfluenza 2 (PCR) Not Detected (NotDetected) Parainfluenza 3 (PCR) Not Detected (NotDetected) Parainfluenza 4 (PCR) Not Detected (NotDetected) RSV (PCR) Not Detected (NotDetected) Entero/Rhino (PCR) Not Detected (NotDetected) 09/05/23 Range/Units 17:47 WBC (4.8-10.8) K/ul RBC (4.70-6.10) M/uL Hgb (14.0-18.0) g/dl Hct (42.0-52.0) % MCV (80.0-100.0) fL MCH (25.0-34.0) pg MCHC (32.0-36.0) g/dL RDW Std Deviation (36.4-46.3) fL RDW Coeff of Ramy (11.5-14.5) % Plt Count (130-400) K/uL MPV (9.4-12.4) fL Immature Gran % (Auto) % Neut % (Auto) % Lymph % (Auto) % Dunn % (Auto) % Eos % (Auto) % Baso % (Auto) % Neut # (Auto) (1.40-6.50) K/uL Lymph # (Auto) (1.20-3.40) K/uL Dunn # (Auto) (0.11-0.59) K/uL Eos # (Auto) (0.00-0.50) K/uL Baso # (Auto) (0.00-0.20) K/uL Immature Gran # (Auto) (0.01-0.20) K/uL Sodium (136-145) mmol/L Potassium (3.5-5.1) mmol/L Chloride (98-107) mmol/L Carbon Dioxide (21-32) mmol/L Anion Gap (3-11) BUN (6-23) mg/dl Creatinine (0.6-1.4) mg/dl Est Cr Clr Drug Dosing ml/min Est GFR ( Amer) ml/min Est GFR (Non-Af Amer) ml/min BUN/Creatinine Ratio (10-20) Glucose (70-99(Fasting)) mg/dl Lactate (0.4-2.0) mmol/L Calcium (8.6-10.3) mg/dl Total Bilirubin (0.2-1.0) mg/dl Direct Bilirubin (0-0.2) mg/dl AST (13-39) U/L ALT (7-52) U/L Alkaline Phosphatase (34-104) U/L Total Protein (6.0-8.3) gm/dl Albumin (3.4-5.0) gm/dl Lipase (11-82) U/L Urine Color Yellow Urine Appearance Clear (Clear) Urine pH 5.5 (4.5-7.5) Ur Specific [place] 1.022 (1.000-1.030) Urine Protein Trace H (Negative) Urine Glucose (UA) Negative (Negative) Urine Ketones Trace H (Negative) Urine Blood Negative (Negative) Urine Nitrite Negative (Negative) Urine Bilirubin Negative (Negative) Urine Urobilinogen Negative (Negative) Ur Leukocyte Esterase Negative (Negative) Urine WBC (Auto) 0-5 (0-5) /hpf Urine RBC (Auto) 0-2 (0-2) /hpf U Hyaline Cast (Auto) 0-2 (0-2) /lpf U Epithel Cells (Auto) 0-2 (0-2) /hpf Urine Bacteria (Auto) None Seen (None Seen) Adenovirus (PCR) (NotDetected) B. pertussis DNA (PCR) (NotDetected) B.parapertussis DNA PCR (NotDetected) C. pneumoniae DNA (PCR) (NotDetected) Coronavirus OC43 (PCR) (NotDetected) Coronavirus HKU1 (PCR) (NotDetected) Coronavirus 229E (PCR) (NotDetected) SARS-CoV-2 (PCR) (NotDetected) Coronavirus NL63 (PCR) (NotDetected) Human Metapneumovir PCR (NotDetected) Influenza Type A (PCR) (NotDetected) Influenza Type B (PCR) (NotDetected) M. pneumoniae (PCR) (NotDetected) Parainfluenza 1 (PCR) (NotDetected) Parainfluenza 2 (PCR) (NotDetected) Parainfluenza 3 (PCR) (NotDetected) Parainfluenza 4 (PCR) (NotDetected) RSV (PCR) (NotDetected) Entero/Rhino (PCR) (NotDetected) Administered Medications Artificial Tears (Artificial Tears) 1 drops OPB BID CORI Stop: 10/08/23 14:59 Last Admin: 09/08/23 22:11 Dose: 1 drops Documented By: Admin: 09/08/23 15:21 Dose: 1 drops Documented By: REYNA Aspirin (Aspirin 81 Mg Ectab) 81 mg PO DAILY CORI Stop: 10/06/23 08:59 Last Admin: 09/08/23 08:16 Dose: 81 mg Documented By: Admin: 09/07/23 09:49 Dose: 81 mg Documented By: Admin: 09/06/23 10:47 Dose: Not Given Documented By: REYNA Carbidopa/Levodopa (Carbidopa/Levodopa 25/100mg Tab) 1 tab PO QID CORI Stop: 10/05/23 20:59 Last Admin: 09/08/23 22:11 Dose: 1 tab Documented By: Admin: 09/08/23 16:54 Dose: 1 tab Documented By: Admin: 09/08/23 14:46 Dose: Not Given Documented By: Admin: 09/08/23 08:15 Dose: 1 tab Documented By: Admin: 09/07/23 20:40 Dose: 1 tab Documented By: Admin: 09/07/23 18:09 Dose: Not Given Documented By: Admin: 09/07/23 14:29 Dose: 1 tab Documented By: Admin: 09/07/23 09:48 Dose: 1 tab Documented By: Admin: 09/06/23 20:24 Dose: Not Given Documented By: Admin: 09/06/23 18:40 Dose: Not Given Documented By: Admin: 09/06/23 14:13 Dose: Not Given Documented By: Admin: 09/06/23 10:47 Dose: Not Given Documented By: Admin: 09/06/23 00:04 Dose: Not Given Documented By: GORDON Cyanocobalamin (Cyanocobalamin (B-12) 500 Mcg Tablet) 1,000 mcg PO DAILY CORI Stop: 10/06/23 08:59 Last Admin: 09/08/23 08:16 Dose: 1,000 mcg Documented By: Admin: 09/07/23 09:53 Dose: 1,000 mcg Documented By: Admin: 09/06/23 10:47 Dose: Not Given Documented By: REYNA Finasteride (Finasteride 5 Mg Tab) 5 mg PO QAM [facility] Stop: 10/06/23 08:59 Last Admin: 09/08/23 08:16 Dose: 5 mg Documented By: Admin: 09/07/23 09:52 Dose: 5 mg Documented By: Admin: 09/06/23 10:47 Dose: Not Given Documented By: EP Heparin Sodium (Porcine) (Heparin Sod 5,000 Unit/0.5 Ml Vial) 5,000 units SQ Q8 CORI Stop: 10/05/23 21:59 Last Admin: 09/08/23 22:11 Dose: 5,000 units Documented By: Admin: 09/08/23 15:21 Dose: 5,000 units Documented By: Admin: 09/08/23 05:14 Dose: 5,000 units Documented By: Admin: 09/07/23 21:23 Dose: 5,000 units Documented By: Admin: 09/07/23 14:29 Dose: 5,000 units Documented By: Admin: 09/07/23 05:29 Dose: 5,000 units Documented By: Admin: 09/06/23 21:44 Dose: 5,000 units Documented By: Admin: 09/06/23 15:12 Dose: 5,000 units Documented By: Admin: 09/06/23 10:24 Dose: Not Given Documented By: Admin: 09/06/23 00:11 Dose: 5,000 units Documented By: GORDON Cefepime HCl 1,000 mg/ Syringe 10 mls @ 5 mls/min IV Q12H [facility]; Protocol Stop: 09/16/23 09:59 Last Admin: 09/08/23 22:30 Dose: 5 mls/min Documented By: Admin: 09/08/23 10:50 Dose: 5 mls/min Documented By: Admin: 09/07/23 21:21 Dose: 5 mls/min Documented By: Admin: 09/07/23 11:28 Dose: 5 mls/min Documented By: Admin: 09/06/23 21:42 Dose: 5 mls/min Documented By: Admin: 09/06/23 11:32 Dose: 5 mls/min Documented By: EP Acetaminophen (Ofirmev) 1,000 mg in 100 mls @ 400 mls/hr IV Q8H PRN PRN Reason: Fever or headache Stop: 09/09/23 10:20 Last Infusion: 09/08/23 17:21 Dose: Infused Documented By: Admin: 09/08/23 16:55 Dose: 400 mls/hr Documented By: Infusion: 09/06/23 14:56 Dose: Infused Documented By: Admin: 09/06/23 10:46 Dose: 400 mls/hr Documented By: EP Metronidazole (Flagyl) 500 mg in 100 mls @ 100 mls/hr IV Q8H [facility]; Protocol Stop: 09/16/23 12:59 Last Infusion: 09/08/23 23:09 Dose: Infused Documented By: Admin: 09/08/23 22:09 Dose: 100 mls/hr Documented By: Infusion: 09/08/23 16:34 Dose: Infused Documented By: Admin: 09/08/23 15:20 Dose: 100 mls/hr Documented By: Infusion: 09/08/23 06:15 Dose: Infused Documented By: DANakita Admin: 09/08/23 05:14 Dose: 100 mls/hr Documented By: Infusion: 09/07/23 21:45 Dose: Infused Documented By: Admin: 09/07/23 20:42 Dose: 100 mls/hr Documented By: Infusion: 09/07/23 16:24 Dose: Infused Documented By: Admin: 09/07/23 14:28 Dose: 100 mls/hr Documented By: Infusion: 09/07/23 07:12 Dose: Infused Documented By: Admin: 09/07/23 05:29 Dose: 100 mls/hr Documented By: Infusion: 09/06/23 21:25 Dose: Infused Documented By: Admin: 09/06/23 20:24 Dose: 100 mls/hr Documented By: Infusion: 09/06/23 15:39 Dose: Infused Documented By: Admin: 09/06/23 14:31 Dose: 100 mls/hr Documented By: EP Metoprolol Tartrate (Metoprolol Tartrate 25 Mg Tab) 12.5 mg PO BID [facility] Stop: 10/05/23 20:59 Last Admin: 09/08/23 21:32 Dose: Not Given Documented By: Admin: 09/08/23 08:15 Dose: 12.5 mg Documented By: Admin: 09/07/23 20:41 Dose: 12.5 mg Documented By: Admin: 09/07/23 09:51 Dose: 12.5 mg Documented By: Admin: 09/06/23 20:24 Dose: Not Given Documented By: Admin: 09/06/23 10:47 Dose: Not Given Documented By: Admin: 09/06/23 00:04 Dose: Not Given Documented By: GORDON Miscellaneous (Dctbeipm-Ijnyxh-Tx-Thonzonium 3.3-3-10-0.5 Mg/Ml Drops,Suspension- Order Awaiting Action) 1 each N/A QS CORI Stop: 10/06/23 00:00 Last Admin: 09/09/23 00:03 Dose: Not Given Documented By: Admin: 09/08/23 15:21 Dose: Not Given Documented By: Admin: 09/08/23 08:14 Dose: Not Given Documented By: Admin: 09/08/23 00:48 Dose: Not Given Documented By: [facility] Admin: 09/07/23 18:09 Dose: Not Given Documented By: Admin: 09/07/23 09:50 Dose: Not Given Documented By: Admin: 09/07/23 02:05 Dose: Not Given Documented By: Admin: 09/06/23 18:40 Dose: Not Given Documented By: Admin: 09/06/23 10:47 Dose: Not Given Documented By: Admin: 09/06/23 03:06 Dose: Not Given Documented By: GORDON Pantoprazole Sodium (Pantoprazole 40 Mg Tab) 40 mg PO MoWeFr CORI Stop: 10/08/23 08:59 Last Admin: 09/08/23 08:17 Dose: 40 mg Documented By: AMEENA Polyethylene Glycol (Polyethylene (Miralax) 17 Gm Pack) 17 gm PO DAILY [facility] Stop: 10/06/23 11:59 Last Admin: 09/08/23 08:15 Dose: 17 gm Documented By: Admin: 09/07/23 09:53 Dose: 17 gm Documented By: Admin: 09/06/23 14:13 Dose: Not Given Documented By: EP Sennosides (Senna 8.6 Mg Tab) 8.6 mg PO DAILY CORI Stop: 10/06/23 08:59 Last Admin: 09/08/23 08:17 Dose: 8.6 mg Documented By: Admin: 09/07/23 09:53 Dose: 8.6 mg Documented By: Admin: 09/06/23 10:48 Dose: Not Given Documented By: EP Vitamin D (Cholecalciferol 25 Mcg (1000 Units) Tab) 50 mcg PO DAILY CORI Stop: 10/06/23 08:59 Last Admin: 09/08/23 08:14 Dose: 50 mcg Documented By: Admin: 09/07/23 09:53 Dose: 50 mcg Documented By: Admin: 09/06/23 10:47 Dose: Not Given Documented By: EP Discontinued Medications Sodium Chloride (Nss) 1,000 mls @ 999 mls/hr IV .Q1H1M ONE Stop: 09/05/23 18:49 Last Infusion: 09/05/23 19:16 Dose: Infused Documented By: Admin: 09/05/23 18:09 Dose: 999 mls/hr Documented By: WESTLEY Ceftriaxone Sodium (Rocephin) 2,000 mg in 50 mls @ 100 mls/hr IV Q24H [facility] Stop: 09/07/23 18:44 Last Infusion: 09/05/23 19:44 Dose: Infused Documented By: Admin: 09/05/23 19:10 Dose: 100 mls/hr Documented By: WESTLEY Lactated Ringer's (Lr) 1,000 mls @ 75 mls/hr IV .[id number] CORI Stop: 10/05/23 19:29 Last Admin: 09/08/23 15:22 Dose: Not Given Documented By: Infusion: 09/08/23 15:22 Dose: Infused Documented By: Admin: 09/08/23 00:55 Dose: 75 mls/hr Documented By: Infusion: 09/08/23 00:48 Dose: Infused Documented By: Admin: 09/07/23 11:28 Dose: 75 mls/hr Documented By: Infusion: 09/07/23 11:03 Dose: Infused Documented By: Admin: 09/06/23 21:43 Dose: 75 mls/hr Documented By: Infusion: 09/06/23 21:43 Dose: Infused Documented By: Admin: 09/06/23 10:28 Dose: 75 mls/hr Documented By: Infusion: 09/06/23 10:28 Dose: Infused Documented By: Admin: 09/05/23 21:39 Dose: 75 mls/hr Documented By: GORDON Cefepime HCl 1,000 mg/ Syringe 10 mls @ 5 mls/min IV ONE STA; Protocol Stop: 09/05/23 21:27 Last Admin: 09/05/23 22:06 Dose: 5 mls/min Documented By: GORDON Acetaminophen (Ofirmev) 1,000 mg in 100 mls @ 400 mls/hr IV NOW STA Stop: 09/05/23 22:30 Last Infusion: 09/05/23 22:53 Dose: Infused Documented By: Admin: 09/05/23 22:21 Dose: 400 mls/hr Documented By: GORDON Imaging Data Radiologist's Impression: Abdomen/Pelvis CT 09/05/23 17:18 CT OF THE ABDOMEN AND PELVIS WITHOUT CONTRAST CLINICAL HISTORY: previous UTIS, fever COMPARISON STUDY: CT of the abdomen June 11, 2023. CT of the abdomen pelvis October 06, 2022. TECHNIQUE: Axial images of the abdomen and pelvis were obtained without IV contrast. Images were reviewed in the axial, sagittal, and coronal planes. Automated exposure control was utilized for the study. A dose lowering technique was utilized adhering to the principles of ALARA. FINDINGS: Visualized portions of the lung bases are unremarkable. No pneumatosis, free air or portal venous gas is present. There are no renal or bladder calculi. There is an equivocal punctate nonobstructing distal right ureteral calculus on image 293. This may be within the ureteral wall. Bladder is collapsed. Bladder wall thickening is again noted. Numerous water attenuation bilateral renal lesions were shown to represent cysts on prior CT. A solid lesion within the superior pole of the right kidney on image 98 of 377 measures 2.7 cm in AP dimension. This was shown to represent an enhancing lesion on prior CT. There is no evidence for a bowel obstruction. There is a large amount of stool within the rectum. Colonic diverticulosis without evidence for acute diverticulitis. There is no abdominal or pelvic lymphadenopathy. There is no ascites. No suspicious lesions are identified within the visualized skeletal structures. IMPRESSION: 1. No hydronephrosis. Equivocal punctate nonobstructing distal right ureteral calculus, likely artifactual or within the ureteral wall. 2. Colonic diverticulosis. No evidence for acute diverticulitis. 3. Large amount of stool within the rectum. 4. Bladder wall thickening which could be correlated with urinalysis. 5. Redemonstration of a solid right upper pole renal lesion, similar to prior CT. ACT 112: Negative or not required by law. Electronically signed by: Ez Merino M.D. 09/05/2023 6:18 PM Chest X-Ray 09/05/23 17:22 XR chest 1V portable CLINICAL HISTORY: Sepsis. COMPARISON STUDY: Chest radiograph and chest CT March 30, 2023. FINDINGS: Lung volumes are normal. Lungs are clear. There is no pneumothorax or pleural effusion. Cardiomegaly is unchanged. Mediastinal contours are normal. There is no evidence for pulmonary edema. Old left-sided rib fractures are incidentally noted. IMPRESSION: No acute cardiopulmonary findings. No significant change in appearance of the chest. ACT 112: Negative or not required by law. Electronically signed by: Ez Merino M.D. 09/05/2023 6:19 PM Discharge Plan Visit Data Chief Complaint: Altered Mental Status Stated Complaint: AMS ED Provider: Solange Bansal Discharge Problem: Encephalopathy, Cystitis, Acute kidney injury Patient Disposition: Admitted As Inpatient Discharge Instructions Interventions: ED Discharge Assessment Last Done: 09/06/23 08:13
[2023-09-05] MEDS: cefTRIAXone SODIUM 2,000 MG/50 ML BAG IV SCH (19:10)
[2023-09-05] MEDS ORDERED: ONDANSETRON INJ 2 MG/ML 2 ML VIAL IV PRN (19:17)
[2023-09-05] MEDS ORDERED: ACETAMINOPHEN 325 MG TAB PO PRN (19:17)
[2023-09-05] MEDS ORDERED: MELATONIN 3 MG TAB PO PRN (19:17)
[2023-09-05] MEDS ORDERED: TRIAMCINOLONE ACET 0.1% CR 15 GM TUBE TOP PRN (19:23)
[2023-09-05] MEDS ORDERED: SOD PHOSPHATE/SOD BIPHOSPHATE ENEMA 132 ML BTL PR PRN (19:23)
[2023-09-05] MEDS ORDERED: MAGNESIUM HYDROXIDE SUSP 30 ML UDC PO PRN (19:23)
[2023-09-05] MEDS ORDERED: bisacodyL 10 MG SUPP PR PRN (19:23)
[2023-09-05] MEDS ORDERED: CLOTRIMAZOLE 1% CR 15 GM TUBE TOP PRN (19:23)
[2023-09-05] MEDS ORDERED: ARTIFICIAL TEARS OPB PRN (19:51)
[2023-09-05] MEDS ORDERED: HYDROCORTISONE 1% CRM 30 GM TUBE EXT PRN (19:52)
--- NOTE | 2023-09-05 20:20 | History & Physical Report ---
Date of Service September 05, 2023 Assessment & Plan (1) Sepsis: Plan: Sepsis Etiology is unclear, possibly untreated urinary tract infection Recently completed treatment for E. coli UTI Constipation , cystitis on the CAT scan Chest x-ray no acute findings Blood cultures obtained in the ER Will start broad-spectrum antibiotic IV fluids He will be admitted to PCU (2) Acute metabolic encephalopathy: Plan: Secondary to sepsis IV antibiotics (3) Dementia: Plan: Supportive care Patient is DNR (4) Parkinson disease: Plan: Restarted Sinemet, when patient is more awake (5) Hypertension: Plan: Monitor blood pressure, hydralazine as needed (6) Constipation: Plan: Chronic constipation He needs enema Continue bowel regimen when able to swallow (7) NADINE (acute kidney injury): Plan: Acute kidney injury, secondary to decreased p.o. and, possibly due to to constipation IV fluids Will insert Garcia catheter Monitor BMP History of Present Illness Chief Complaint: Fever , altered mental status Primary Care Provider: Doyle Pimentel This is a 87-year-old male with past medical history significant for Parkinson's disease, dementia, history of urinary retention, Garcia was removed 3 months ago, patient was recently treated for urinary tract infection with Bactrim, completed course of antibiotics, today around 3 PM she started having fever, rigors shake, he was feeling well in the morning, declined happened afternoon. In the emergency room his temperature 39 Celsius, patient has dysphagia and on modified diet with thickened liquids. Last urine culture significant for E. coli, pansensitive. CT abdomen pelvis is consistent with large amount of stool, bladder wall thickening. Patient has a history of constipation, unclear when was the last bowel movement, patient cannot provide any history, most of the information obtained from family and the ER record. Allergies Allergy/AdvReac Type Severity Reaction Status Date / Time No Known Allergies Allergy Verified 09/05/23 18:23 Home Medications Medication Instructions Recorded Confirmed Type carbidopa 25 mg-levodopa 100 mg 1 tab PO QID 12/04/21 09/05/23 History tablet (Sinemet) cholecalciferol (vitamin D3) 50 50 mcg PO DAILY 12/04/21 09/05/23 History mcg (2,000 unit) capsule finasteride 5 mg tablet (Proscar) 5 mg PO QAM 12/04/21 09/05/23 History pantoprazole 40 mg tablet,delayed 40 mg PO 3XWK 12/04/21 09/05/23 History release cyanocobalamin (vitamin B-12) 1,000 mcg PO DAILY 01/21/22 09/05/23 History 1,000 mcg tablet (Vitamin B-12) acetaminophen 325 mg tablet 650 mg PO Q4H PRN pain or fever 10/06/22 09/05/23 History bisacodyl 10 mg rectal suppository 10 mg NJ Q48H PRN Constipation 10/06/22 09/05/23 History (Dulcolax (bisacodyl)) magnesium hydroxide 400 mg/5 mL 30 ml PO Q48H PRN Constipation 10/06/22 09/05/23 History oral suspension (Milk of Magnesia) sodium phosphates 19 gram-7 118 ml NJ Q72H PRN Constipation 10/06/22 09/05/23 History gram/118 mL enema (Fleet Enema) metoprolol tartrate 25 mg tablet 12.5 mg (1/2 x 25 mg) PO BID #30 10/10/22 09/05/23 Rx tabs aspirin 81 mg tablet,delayed 81 mg PO DAILY 03/30/23 09/05/23 History release polyethylene glycol 3350 17 17 g PO 3XWK 03/30/23 09/05/23 History gram/dose oral powder (Miralax) sennosides 8.6 mg tablet (senna) 8.6 mg PO DAILY 03/30/23 09/05/23 History acetaminophen 650 mg rectal 650 mg NJ Q4H PRN FEVER <99.5 09/05/23 09/05/23 History suppository carboxymethylcellulose sodium 0.5 1 drp OPB BID 09/05/23 09/05/23 History % eye drops (Refresh Tears) carboxymethylcellulose sodium 0.5 1 drp OPB BID PRN Dry Eyes 09/05/23 09/05/23 History % eye drops (Refresh Tears) clotrimazole 1 % topical cream 1 applic topical BID PRN Rash 09/05/23 09/05/23 History (Lotrimin AF (clotrimazole)) hydrocortisone 1 % topical cream 1 applic topical BID PRN LEFT 09/05/23 09/05/23 History EAR/NOSE/OUTER EYE RASH [id number] 3.3 4 drp OTL DAILY PRN 09/05/23 09/05/23 History mg-3 mg-10 mg-0.5 mg/mL ear INFLAMMATION/ITCHING drops,susp selenium sulfide 1 % shampoo 1 applic topical 2XWK 09/05/23 09/05/23 History (Selsun Blue) sulfamethoxazole 800 1 tab PO BID 09/05/23 09/05/23 History mg-trimethoprim 160 mg tablet (Bactrim DS) triamcinolone acetonide 0.1 % 1 applic topical BID PRN Rash 09/05/23 09/05/23 History topical cream Past Med/Surg History Problem List Chest pain (Acute) Elevated troponin Severe sepsis PVC (premature ventricular contraction) Aortic stenosis Mitral regurgitation Generalized weakness Renal mass Acute UTI (urinary tract infection) (Acute) Conjunctivitis Superficial thrombophlebitis Irregular heart rhythm follows w/ Dr. Irwin Canas Ambulatory dysfunction Weakness (Acute) COVID-19 (Acute) Parkinson disease Recurrent UTI (urinary tract infection) (Acute) Encounter for pre-operative examination Hypertension (Acute) Altered mental status (Acute) Pneumonia (Acute) Weakness on right side of face Laryngopharyngeal reflux (LPR) Acquired deviated nasal septum Chronic rhinitis Retention of urine, unspecified BPH w urinary obs/LUTS History of SCC (squamous cell carcinoma) of skin History of basal cell carcinoma Medical History PVC (premature ventricular contraction) Aortic stenosis Mitral regurgitation Lab test negative for COVID-19 virus Acute dehydration Weakness Sepsis Dementia Resides in [place] facility Parkinson disease Dysphonia Dysarthria and anarthria 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 stage III Dysphagia Other abnormalities of gait and mobility Weakness Muscle spasm of back Hyperlipidemia Diverticulosis of large intestine without perforation or abscess without bleeding History of blood clots Poor historian Hearing deficit Irregular heart rhythm Hypertension BPH w urinary obs/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 current occupational status: retired Feels Safe at Home: Declines to Answer Assistive Devices: Cane, Glasses and Walker Review of Systems Review of Systems: Unobtainable due to cognitive status Physical Exam Physical Exam: General patient is somnolent, not answering questions Head is atraumatic normocephalic lungs decreased breath sounds bilaterally heart tachycardic, no murmurs abdomen soft, nondistended, nontender, bowel sounds diminished extremities no edema, has tremors in upper extremity neuro very somnolent Results & Data Results & Data Vital Signs (Past 12 Hours) Vital Signs Temp Pulse Pulse Resp BP BP Pulse Ox 09/05/23 19:00 95 H 28 H 147/82 H 97 09/05/23 17:09 91 H 09/05/23 17:06 38.9 C H 87 34 H 169/85 H 90 09/05/23 17:06 90 09/05/23 17:06 38.9 C H 89 28 H 169/85 H 90 O2 Del Method 09/05/23 19:00 Room Air 09/05/23 17:09 09/05/23 17:06 Room Air 09/05/23 17:06 Room Air 09/05/23 17:06 Room Air Code Status & VTE Plan Code Status DNR PG Care Time/CCT Total # of Minutes Spent Total Time Spent with Patient: Total time spent is greater than 50% in coordination of care (as documented) at patient's floor/unit and/or counseling patient: Coding Level of Care Code 32905 INT INP/OBS CARE 3/75MIN Diagnoses Sepsis A41.9 Acute renal failure type: unspecified Sepsis acute organ dysfunction status: with acute organ dysfunction Sepsis type: sepsis due to unspecified organism Severe sepsis acute organ dysfunction type: acute renal failure Acute metabolic encephalopathy G93.41 Dementia F03.90 Parkinson disease G20 Hypertension I10 Constipation K59.00 NADINE (acute kidney injury) N17.9 (1) Sepsis Acute renal failure type: unspecified Sepsis acute organ dysfunction status: with acute organ dysfunction Sepsis type: sepsis due to unspecified organism Severe sepsis acute organ dysfunction type: acute renal failure
[2023-09-05] MEDS ORDERED: hydrALAZINE HCL 20 MG/ML VIAL IV PRN (20:21)
[2023-09-05] MEDS: LACTATED RINGER'S 1,000 ML IV SCH (21:39)
[2023-09-05] MEDS: CEFEPIME 1,000 MG in SYRINGE 0 ML IV STA (22:06)
[2023-09-05] MEDS: ACETAMINOPHEN 1,000 MG/100 ML VIAL IV STA (22:21)
[2023-09-06] MEDS: METOPROLOL TARTRATE 25 MG TAB PO SCH (00:04)
[2023-09-06] MEDS: CARBIDOPA/LEVODOPA 25/100MG TAB PO SCH (00:04)
[2023-09-06] MEDS: HEPARIN SOD 5,000 UNIT/0.5 ML VIAL SQ SCH (00:11)
[2023-09-06 06:26] LABS: Basophils # (auto) 0.03 K/uL (0.00-0.20); Basophils % (auto) 0.3 %; Eosinophils # (auto) 0.03 K/uL (0.00-0.50); Eosinophils % (auto) 0.3 %; Hematocrit (blood only) 43.6 % (42.0-52.0); Hemoglobin 14.2 g/dl (14.0-18.0); Immature Granulocytes # (auto) 0.06 K/uL (0.01-0.20); Immature Granulocytes % (auto) 0.7 %; Lymphocytes # (auto) 0.56 K/uL (1.20-3.40); Lymphocytes % (auto) 6.2 %; Mean Corpuscular Hemoglobin 30.6 pg (25.0-34.0); Mean Corpuscular Hgb Conc 32.6 g/dL (32.0-36.0); Mean Platelet Volume 10.3 fL (9.4-12.4); Monocytes # (auto) 0.57 K/uL (0.11-0.59); Monocytes % (auto) 6.3 %; Neutrophils # (auto) 7.81 K/uL (1.40-6.50); Neutrophils % (auto) 86.2 %; Platelet Count 161 K/uL (130-400); RDW Coefficient of Variation 13.8 % (11.5-14.5); RDW Standard Deviation 47.2 fL (36.4-46.3); Red Blood Count 4.64 M/uL (4.70-6.10); White Blood Count 9.06 K/ul (4.8-10.8)
[2023-09-06 06:33] LABS: Calcium 9.2 mg/dl (8.6-10.3); Creatinine Clr Calc Pharmacy 34.6 ml/min; Est GFR (African American) 42.6 ml/min; Est GFR (Non-African American) 36.8 ml/min; Potassium 4.7 mmol/L (3.5-5.1)
[2023-09-06] MEDS: ACETAMINOPHEN 1,000 MG/100 ML VIAL IV PRN (10:46)
[2023-09-06] MEDS: CHOLECALCIFEROL 25 MCG (1000 UNITS) TAB PO SCH (10:47)
[2023-09-06] MEDS: CYANOCOBALAMIN (B-12) 500 MCG TABLET PO SCH (10:47)
[2023-09-06] MEDS: FINASTERIDE 5 MG TAB PO SCH (10:47)
[2023-09-06] MEDS: ASPIRIN 81 MG ECTAB PO SCH (10:47)
[2023-09-06] MEDS: SENNA 8.6 MG TAB PO SCH (10:48)
[2023-09-06] MEDS: CEFEPIME 1,000 MG in SYRINGE 0 ML IV SCH (11:32)
[2023-09-06 13:27] LABS: Base Excess VBG -1.1 mEq/L; HCO3 VBG 22 mmol/L; PCO2 VBG 32 mmHg (38-50); PO2 VBG 51 mmHg; pH VBG 7.45 (7.36-7.41)
[2023-09-06] MEDS: POLYETHYLENE (MIRALAX) 17 GM PACK PO SCH (14:13)
[2023-09-06] MEDS: metroNIDAZOLE 500 MG/100 ML BAG IV SCH (14:31)
--- NOTE | 2023-09-06 14:32 | CT Scan Report ---
HEAD CT NONCONTRAST CT DOSE: 625.8 mGy.cm HISTORY: altered mental status TECHNIQUE: Multiaxial CT images of the head were performed without the use of intravenous contrast. A utomated exposure control was utilized for this study. A dose lowering technique was utilized adheri ng to the principles of ALARA. Comparison: Head CT 10/11/2022. Findings: The paranasal sinuses and mastoid air cells are clear. The calvarium and skull base are int act. There is no mass, hematoma, midline shift, acute infarct. White matter hypodensity is nonspecifi c but suggestive of microvascular ischemic change. The ventricles and sulci demonstrate mild age-rela ebne involutional changes. Impression: No significant change compared to the prior study. No acute intracranial abnormality. ACT 112: Negative or not required by law. Electronically signed by: Eben Nichols M.D. 09/06/2023 2:31 PM
[2023-09-06 16:51] LABS: Adenovirus F 40/41 PCR Not Detected (NotDetected); Astrovirus PCR Not Detected (NotDetected); Campylobacter PCR Not Detected (NotDetected); Cryptosporidium PCR Not Detected (NotDetected); Cyclospora cayetanensis PCR Not Detected (NotDetected); Entamoeba histolytica PCR Not Detected (NotDetected); Enteroaggregative E.coli(EAEC) Not Detected (NotDetected); Enteropathogenic E.coli (EPEC) Not Detected (NotDetected); Enterotoxigenic E.coli (ETEC) Not Detected (NotDetected); Giardia lamblia PCR Not Detected (NotDetected); Norovirus GI/GII PCR Not Detected (NotDetected); Plesiomonas shigelloides PCR Not Detected (NotDetected); Rotavirus A PCR Not Detected (NotDetected); Salmonella PCR Not Detected (NotDetected); Sapovirus PCR Not Detected (NotDetected); Shiga-like Toxin E.coli (STEC) Not Detected (NotDetected); Shigella/Enteroinvasive E.coli Not Detected (NotDetected); Vibrio cholerae PCR Not Detected (NotDetected); Vibrio species PCR Not Detected (NotDetected); Yersinia enterocolitica PCR Not Detected (NotDetected)
--- NOTE | 2023-09-06 20:48 | Hospitalist Progress Note ---
Date of Service September 06, 2023 Assessment & Plan (1) Sepsis: Plan: Sepsis Etiology is unclear, possibly stercoral colitis Fever curve does appear iman improving. Do not feel this is due to a UTI given clear uring. Recently completed treatment for E. coli UTI Constipation , cystitis on the CAT scan Chest x-ray no acute findings Blood cultures obtained in the ER Will start broad-spectrum antibiotic added metronidazol for anaerobic coverage Ordered soap cris enema due to fecal retention consider spinal tap or EEG if remains unresponsive. IV fluids (2) Acute metabolic encephalopathy: Plan: Secondary to sepsis IV antibiotics (3) Dementia: Plan: Supportive care Patient is DNR (4) Parkinson disease: Plan: Restarted Sinemet, when patient is more awake (5) Hypertension: Plan: Monitor blood pressure, hydralazine as needed (6) Constipation: Plan: Chronic constipation He needs enema Continue bowel regimen when able to swallow (7) NADINE (acute kidney injury): Plan: Acute kidney injury, secondary to decreased p.o. and, possibly due to to constipation IV fluids Will insert Garcia catheter Monitor BMP Admission and Anticipated Discharge Date Admission Date: September 05, 2023 Subjective Patient is unresponsive. Family at bedside. Review of Systems Review of Systems: Unobtainable due to cognitive status Physical Exam Physical Exam: General patient is somnolent, not answering questions Head is atraumatic normocephalic lungs decreased breath sounds bilaterally heart tachycardic, no murmurs abdomen soft, nondistended, nontender, bowel sounds diminished extremities no edema, has tremors in upper extremity neuro very somnolent Results & Data Results & Data Vital Signs (Past 12 Hours) Vital Signs Temp Pulse Pulse Resp BP BP Pulse Ox 09/06/23 20:09 37.0 C 80 16 132/72 97 09/06/23 15:44 74 09/06/23 14:46 37.2 C 67 16 108/67 95 09/06/23 10:43 89 09/06/23 10:43 37.7 C H 84 20 136/69 100 09/06/23 10:00 09/06/23 09:36 38.1 C H 85 22 167/50 H 95 O2 Del Method O2 Flow Rate 09/06/23 20:09 Nasal Cannula 1 09/06/23 15:44 09/06/23 14:46 Nasal Cannula 1.0 09/06/23 10:43 09/06/23 10:43 Room Air 09/06/23 10:00 Room Air 09/06/23 09:36 Room Air PG Care Time/CCT Total # of Minutes Spent Total Time Spent with Patient: Total time spent is greater than 50% in coordination of care (as documented) at patient's floor/unit and/or counseling patient: Coding Level of Care Code 15196 SUB INP/OBS CARE 3/50MIN Diagnoses Sepsis A41.9 Acute renal failure type: unspecified Sepsis acute organ dysfunction status: with acute organ dysfunction Sepsis type: sepsis due to unspecified organism Severe sepsis acute organ dysfunction type: acute renal failure Acute metabolic encephalopathy G93.41 Dementia F03.90 Parkinson disease G20 Hypertension I10 Constipation K59.00 NADINE (acute kidney injury) N17.9 Time Spent (min) 50 (1) Sepsis Acute renal failure type: unspecified Sepsis acute organ dysfunction status: with acute organ dysfunction Sepsis type: sepsis due to unspecified organism Severe sepsis acute organ dysfunction type: acute renal failure
[2023-09-07 06:57] LABS: Basophils # (auto) 0.01 K/uL (0.00-0.20); Basophils % (auto) 0.2 %; Eosinophils % (auto) 3.4 %; Hemoglobin 12.8 g/dl (14.0-18.0); Immature Granulocytes # (auto) 0.03 K/uL (0.01-0.20); Immature Granulocytes % (auto) 0.5 %; Lymphocytes # (auto) 0.81 K/uL (1.20-3.40); Lymphocytes % (auto) 13.6 %; Mean Corpuscular Hemoglobin 30.8 pg (25.0-34.0); Mean Corpuscular Hgb Conc 32.8 g/dL (32.0-36.0); Mean Platelet Volume 10.4 fL (9.4-12.4); Monocytes % (auto) 8.4 %; Neutrophils # (auto) 4.41 K/uL (1.40-6.50); Neutrophils % (auto) 73.9 %; Platelet Count 140 K/uL (130-400); RDW Standard Deviation 47.6 fL (36.4-46.3); Red Blood Count 4.15 M/uL (4.70-6.10); White Blood Count 5.96 K/ul (4.8-10.8)
[2023-09-07 08:07] LABS: BUN Creatinine Ratio 26.9 (10-20); C Reactive Protein 12.07 mg/dl (0-0.5); Calcium 8.7 mg/dl (8.6-10.3); Creatinine Clr Calc Pharmacy 40.6 ml/min; Est GFR (African American) 56.5 ml/min; Est GFR (Non-African American) 48.7 ml/min; Potassium 4.5 mmol/L (3.5-5.1)
--- NOTE | 2023-09-07 20:57 | Hospitalist Progress Note ---
Date of Service September 07, 2023 Assessment & Plan (1) Sepsis: Plan: Sepsis Etiology is unclear, possibly stercoral colitis Fever curve does appear iman improving. Do not feel this is due to a UTI given clear uring. Recently completed treatment for E. coli UTI Constipation , cystitis on the CAT scan Chest x-ray no acute findings Blood cultures obtained in the ER Will start broad-spectrum antibiotic added metronidazol for anaerobic coverage Ordered soap cris enema due to fecal retention: patient had multiple large BM on 09/05 Blood work appears improved on 09/06. Clincially improved as mentation is better, able to answer yes and no question. given clincial improvement, no need to search for meningitits. consulted speech. resume oral meds for parkinson. (2) Acute metabolic encephalopathy: Plan: Secondary to sepsis IV antibiotics (3) Dementia: Plan: Supportive care Patient is DNR (4) Parkinson disease: Plan: Restarted Sinemet, when patient is more awake (5) Hypertension: Plan: Monitor blood pressure, hydralazine as needed (6) Constipation: Plan: Chronic constipation He needs enema Continue bowel regimen when able to swallow (7) NADINE (acute kidney injury): Plan: Acute kidney injury, secondary to decreased p.o. and, possibly due to to constipation IV fluids Will insert Garcia catheter Monitor BMP Admission and Anticipated Discharge Date Admission Date: September 05, 2023 Subjective Patient reports no new symptoms. Review of Systems Review of Systems: All systems reviewed & are unremarkable except as noted in HPI & below Physical Exam Physical Exam: General patient is awake, answering questions. Head is atraumatic normocephalic lungs decreased breath sounds bilaterally heart tachycardic, no murmurs abdomen soft, nondistended, nontender, bowel sounds diminished extremities no edema, has tremors in upper extremity Results & Data Results & Data Vital Signs (Past 12 Hours) Vital Signs Temp Pulse Pulse Resp BP Pulse Ox O2 Del Method 09/07/23 19:20 37.9 C H 72 22 153/68 H 92 Room Air 09/07/23 18:22 68 09/07/23 16:35 37.6 C H 83 16 127/105 H 94 Room Air 09/07/23 12:18 36.3 C L 74 17 101/66 95 Room Air PG Care Time/CCT Total # of Minutes Spent Total Time Spent with Patient: Total time spent is greater than 50% in coordination of care (as documented) at patient's floor/unit and/or counseling patient: Coding Level of Care Code 00404 SUB INP/OBS CARE 3/50MIN Diagnoses Sepsis A41.9 Acute renal failure type: unspecified Sepsis acute organ dysfunction status: with acute organ dysfunction Sepsis type: sepsis due to unspecified organism Severe sepsis acute organ dysfunction type: acute renal failure Acute metabolic encephalopathy G93.41 Dementia F03.90 Parkinson disease G20 Hypertension I10 Constipation K59.00 NADINE (acute kidney injury) N17.9 Time Spent (min) 50 (1) Sepsis Acute renal failure type: unspecified Sepsis acute organ dysfunction status: with acute organ dysfunction Sepsis type: sepsis due to unspecified organism Severe sepsis acute organ dysfunction type: acute renal failure
[2023-09-08 07:02] LABS: Basophils # (auto) 0.02 K/uL (0.00-0.20); Basophils % (auto) 0.3 %; Eosinophils # (auto) 0.18 K/uL (0.00-0.50); Eosinophils % (auto) 2.5 %; Hematocrit (blood only) 37.9 % (42.0-52.0); Hemoglobin 12.2 g/dl (14.0-18.0); Immature Granulocytes # (auto) 0.03 K/uL (0.01-0.20); Immature Granulocytes % (auto) 0.4 %; Lymphocytes % (auto) 13.9 %; Mean Corpuscular Hemoglobin 30.3 pg (25.0-34.0); Mean Corpuscular Hgb Conc 32.2 g/dL (32.0-36.0); Mean Platelet Volume 10.5 fL (9.4-12.4); Monocytes % (auto) 9.7 %; Neutrophils # (auto) 5.29 K/uL (1.40-6.50); Neutrophils % (auto) 73.2 %; Platelet Count 142 K/uL (130-400); RDW Coefficient of Variation 13.8 % (11.5-14.5); RDW Standard Deviation 47.8 fL (36.4-46.3); Red Blood Count 4.03 M/uL (4.70-6.10); White Blood Count 7.22 K/ul (4.8-10.8)
[2023-09-08 07:12] LABS: BUN Creatinine Ratio 27.3 (10-20); C Reactive Protein 9.64 mg/dl (0-0.5); Creatinine Clr Calc Pharmacy 47.9 ml/min; Est GFR (African American) 69.1 ml/min; Est GFR (Non-African American) 59.6 ml/min; Potassium 4.8 mmol/L (3.5-5.1)
[2023-09-08] MEDS: PANTOprazole 40 MG TAB PO SCH (08:17)
[2023-09-08] MEDS ORDERED: POLYETHYLENE (MIRALAX) 17 GM PACK PO SCH (09:00)
[2023-09-08] MEDS: ARTIFICIAL TEARS OPB SCH (15:21)
--- NOTE | 2023-09-08 23:06 | Hospitalist Progress Note ---
Date of Service September 08, 2023 Assessment & Plan (1) Sepsis: Plan: Sepsis complicated by delirium. Etiology is unclear, possibly stercoral colitis Fever curve does appear to be improving. Do not feel this is due to a UTI given clear urine. Recently completed treatment for E. coli UTI Constipation , cystitis on the CAT scan Chest x-ray no acute findings Blood cultures obtained in the ER Will start broad-spectrum antibiotic added metronidazol for anaerobic coverage Ordered soap cris enema due to fecal retention: patient had multiple large BM on 09/05 Blood work appears improved on 09/06 and 09/07 Clincially improved as mentation is better, able to answer yes and no question. given clincial improvement, no need to search for meningitits. consulted speech. resume oral meds for parkinson. (2) Acute metabolic encephalopathy: Plan: Secondary to sepsis IV antibiotics (3) Dementia: Plan: Supportive care Patient is DNR (4) Parkinson disease: Plan: Restarted Sinemet, when patient is more awake (5) Hypertension: Plan: Monitor blood pressure, hydralazine as needed (6) Constipation: Plan: Chronic constipation He needs enema Continue bowel regimen when able to swallow (7) NADINE (acute kidney injury): Plan: Acute kidney injury, secondary to decreased p.o. and, possibly due to to constipation IV fluids Will insert Garcia catheter Monitor BMP Admission and Anticipated Discharge Date Admission Date: September 05, 2023 Subjective Patient is able to respond to yes and no questions. Denies pain and discomfort. Nurse reports he ate his lunch but is a little more drowsy today versus yesterday. Review of Systems Review of Systems: All systems reviewed & are unremarkable except as noted in HPI & below Physical Exam Physical Exam: General patient is awake, answering questions. Head is atraumatic normocephalic lungs decreased breath sounds bilaterally heart bradycardic, no murmurs abdomen soft, nondistended, nontender, bowel sounds diminished extremities no edema, has tremors in upper extremity Results & Data Results & Data Vital Signs (Past 12 Hours) Vital Signs Temp Pulse Pulse Resp BP Pulse Ox O2 Del Method 09/08/23 22:36 36.4 C L 54 L 16 109/69 100 Room Air 09/08/23 21:33 58 L 09/08/23 19:32 36.8 C 60 18 110/63 96 Room Air 09/08/23 18:34 58 L 09/08/23 15:37 37.0 C 65 18 111/72 94 Room Air 09/08/23 11:06 36.9 C 68 17 117/72 93 Room Air PG Care Time/CCT Total # of Minutes Spent Total Time Spent with Patient: Total time spent is greater than 50% in coordination of care (as documented) at patient's floor/unit and/or counseling patient: Coding Level of Care Code 43484 SUB INP/OBS CARE 2/35MIN Diagnoses Sepsis A41.9 Acute renal failure type: unspecified Sepsis acute organ dysfunction status: with acute organ dysfunction Sepsis type: sepsis due to unspecified organism Severe sepsis acute organ dysfunction type: acute renal failure Acute metabolic encephalopathy G93.41 Dementia F03.90 Parkinson disease G20 Hypertension I10 Constipation K59.00 NADINE (acute kidney injury) N17.9 (1) Sepsis Acute renal failure type: unspecified Sepsis acute organ dysfunction status: with acute organ dysfunction Sepsis type: sepsis due to unspecified organism Severe sepsis acute organ dysfunction type: acute renal failure
[2023-09-09 07:52] LABS: Hematocrit (blood only) 38.9 % (42.0-52.0); Hemoglobin 12.7 g/dl (14.0-18.0); Mean Corpuscular Hemoglobin 30.6 pg (25.0-34.0); Mean Corpuscular Hgb Conc 32.6 g/dL (32.0-36.0); Mean Corpuscular Volume 93.7 fL (80.0-100.0); Mean Platelet Volume 10.3 fL (9.4-12.4); Platelet Count 152 K/uL (130-400); RDW Standard Deviation 47.2 fL (36.4-46.3); Red Blood Count 4.15 M/uL (4.70-6.10); White Blood Count 6.27 K/ul (4.8-10.8)
--- NOTE | 2023-09-09 07:52 | Hospitalist Progress Note ---
Date of Service September 09, 2023 Assessment & Plan (1) Acute metabolic encephalopathy: Plan: Secondary to sepsis, blood cultures negative at this point, and lieu of negative cultures will complete 1 week of antibiotics suspecting course to be stercoral colitis Acute metabolic encephalopathy is clearing will need to evaluate after hydration and restarting her Parkinson's medication GI PCR is negative, respiratory PCR is negative And she will take peripheral smears are negative however Serum tickborne studies are still pending (2) Dementia: Plan: Supportive care Patient is DNR (3) Parkinson disease: Plan: Restarted Sinemet, (4) Hypertension: Plan: Monitor blood pressure, hydralazine as needed (5) NADINE (acute kidney injury): Plan: Acute kidney injury, secondary to decreased p.o. and, possibly due to to constipation Resolved insert Garcia catheter patient is strong dark urine will likely need some hydration over the next 24 hours to follow his progress Admission and Anticipated Discharge Date Admission Date: September 05, 2023 Subjective Patient is conversant but would not open his eyes. Family is in room and updated. They give report of waxing and waning dementia over the last few years sometimes being fairly limited sometimes being fairly interactive Physical Exam Physical Exam: Is conversant does answer some questions appropriately Masslike facies some tremor consistent with his Parkinson's disease Card exam is distant but regular lungs are clear with diminished breath sounds abdomen NABS and soft extremities are without edema Results & Data Results & Data Vital Signs (Past 12 Hours) Vital Signs Temp Pulse Pulse Resp BP Pulse Ox O2 Del Method 09/09/23 07:16 97.9 F 67 18 127/74 96 Room Air 09/09/23 02:46 97.7 F 60 16 105/64 96 Room Air 09/08/23 22:36 97.5 F L 54 L 16 109/69 100 Room Air 09/08/23 22:02 65 09/08/23 21:33 58 L Laboratory Results Reviewed CBC reviewed chemistry PG Care Time/CCT Total # of Minutes Spent Total Time Spent with Patient: Total time spent is greater than 50% in coordination of care (as documented) at patient's floor/unit and/or counseling patient: Coding Level of Care Code 65900 SUB INP/OBS CARE 2/35MIN Diagnoses Acute metabolic encephalopathy G93.41 Dementia F03.90 Parkinson disease G20 Hypertension I10 NADINE (acute kidney injury) N17.9
[2023-09-09 08:20] LABS: BUN Creatinine Ratio 27.5 (10-20); C Reactive Protein 8.99 mg/dl (0-0.5); Calcium 8.9 mg/dl (8.6-10.3); Creatinine Clr Calc Pharmacy 51.7 ml/min; Est GFR (African American) 75.7 ml/min; Est GFR (Non-African American) 65.3 ml/min; Potassium 4.1 mmol/L (3.5-5.1)
[2023-09-09] MEDS: CEFEPIME 2,000 MG in SYRINGE 0 ML IV SCH (09:40)
[2023-09-09] MEDS: SODIUM CHLORIDE 0.9% 1,000 ML IV SCH (16:32)
[2023-09-09] MEDS: POLYETHYLENE (MIRALAX) 17 GM PACK PO SCH (20:25)
--- NOTE | 2023-09-10 07:46 | Hospitalist Progress Note ---
Date of Service September 10, 2023 Assessment & Plan (1) Acute metabolic encephalopathy: Plan: Secondary to sepsis, blood cultures negative at this point, will complete 1 week of antibiotics suspecting course to be stercoral colitis Acute metabolic encephalopathy is clearing GI PCR is negative, respiratory PCR is negative And she will take peripheral smears are negative however Serum tickborne studies are still pending (2) Dementia: Plan: Supportive care Patient is DNR (3) Parkinson disease: Plan: Restarted Sinemet, (4) Hypertension: Plan: Monitor blood pressure, hydralazine as needed (5) NADINE (acute kidney injury): Plan: Acute kidney injury, secondary to decreased p.o. and, possibly due to to constipation Resolved insert Garcia catheter patient is strong dark urine will likely need some hydration over the next 24 hours to follow his progress Plan Return to [facility] in the next 1 to 2 days Admission and Anticipated Discharge Date Admission Date: September 05, 2023 Subjective Patient is much more awake and conversant today likely effect of improving his encephalopathy and being able to readminister his Parkinson medications. For continuing antibiotic treatment pursuing physical occupational therapy and hopefully projecting the patient towards discharge in the next 1 to 2 days Physical Exam Physical Exam: Awake and more conversant participating with speech evaluation 09/10/23 Cardiac exam is regular without significant murmurs lungs are clear without air loss abdomen NABS soft and nontender Not yet with robust bowel movements escalating cathartic regiment Results & Data Results & Data Vital Signs (Past 12 Hours) Vital Signs Temp Pulse Pulse Resp BP Pulse Ox O2 Del Method 09/10/23 06:37 98.8 F 66 18 136/78 100 Room Air 09/10/23 02:50 97.5 F L 72 18 125/83 93 Room Air 09/09/23 22:30 97.9 F 64 18 122/60 94 Room Air 09/09/23 22:07 59 L PG Care Time/CCT Total # of Minutes Spent Total Time Spent with Patient: Total time spent is greater than 50% in coordination of care (as documented) at patient's floor/unit and/or counseling patient: Coding Level of Care Code 73454 SUB INP/OBS CARE 2/35MIN Diagnoses Acute metabolic encephalopathy G93.41 Dementia F03.90 Parkinson disease G20 Hypertension I10 NADINE (acute kidney injury) N17.9
[2023-09-10] MEDS: SENNA 8.6 MG TAB PO SCH ×2 (08:42→20:04)
[2023-09-10 16:42] LABS: Babesia microti DNA Not Detected (Not Detected)
[2023-09-10] MEDS: metroNIDAZOLE 500 MG TAB PO SCH (20:20)
[2023-09-10] MEDS: CIPROFLOXACIN 500 MG TAB PO SCH (20:20)
[2023-09-11 13:08] LABS: Ehrlichia chaff DNA Bld Negative (Negative)
--- NOTE | 2023-09-11 17:18 | Hospitalist Progress Note ---
Date of Service September 11, 2023 Assessment & Plan (1) Acute metabolic encephalopathy: Plan: Secondary to sepsis, blood cultures negative at this point, will complete 1 week of antibiotics suspecting course to be stercoral colitis Acute metabolic encephalopathy is clearing GI PCR is negative, respiratory PCR is negative And she will take peripheral smears are negative however Serum tickborne studies are still pending (2) Dementia: Plan: Supportive care Patient is DNR (3) Parkinson disease: Plan: Restarted Sinemet, (4) Hypertension: Plan: Monitor blood pressure, hydralazine as needed (5) NADINE (acute kidney injury): Plan: Acute kidney injury, secondary to decreased p.o. and, possibly due to to constipation Resolved insert Garcia catheter patient is strong dark urine will likely need some hydration over the next 24 hours to follow his progress Plan Return to [facility] in the next 1 to 2 days Admission and Anticipated Discharge Date Admission Date: September 05, 2023 Physical Exam Physical Exam: Awake and more conversant participating with speech evaluation 09/10/23 Cardiac exam is regular without significant murmurs lungs are clear without air loss abdomen NABS soft and nontender Not yet with robust bowel movements escalating cathartic regiment Results & Data Results & Data Vital Signs (Past 12 Hours) Vital Signs Temp Pulse Resp BP Pulse Ox O2 Del Method 09/11/23 14:33 97.5 F L 61 16 117/70 96 Room Air 09/11/23 09:00 86 20 138/77 09/11/23 07:50 Room Air 09/11/23 07:45 98.1 F 74 16 131/74 96 Room Air PG Care Time/CCT Total # of Minutes Spent Total Time Spent with Patient: Total time spent is greater than 50% in coordination of care (as documented) at patient's floor/unit and/or counseling patient: Coding Diagnoses Acute metabolic encephalopathy G93.41 Dementia F03.90 Parkinson disease G20 Hypertension I10 NADINE (acute kidney injury) N17.9
--- NOTE | 2023-09-11 17:20 | Discharge Summary ---
Discharge Summary Date of Service September 11, 2023 Principal Dx & Hospital Course #1 = Principal Diagnosis (1) Acute metabolic encephalopathy: Secondary to sepsis, blood cultures negative at this point, will complete 1 week of antibiotics suspecting course to be stercoral colitis Acute metabolic encephalopathy has cleared improved by reinstitution of his Parkinson's medication GI PCR is negative, respiratory PCR is negative And she will take peripheral smears are negative however Serum tickborne studies are still pending (2) Dementia: Supportive care, according to family has waxing and waning days Patient is DNR (3) Parkinson disease: Restarted Sinemet, PT is supportive of subacute rehab evaluation (4) Hypertension: Chronic and stable continue metoprolol (5) NADINE (acute kidney injury): Acute kidney injury, secondary to decreased p.o. and, possibly due to to constipation Resolved Plan Return to [facility] with good surveillance on stool production Notes For Next Care Provider Biggest issues continues to revolve around encouraging good bowel regimen to avoid recurrence of stercoral colitis Admission HPI Per Admitting Provider This is a 87-year-old male with past medical history significant for Parkinson's disease, dementia, history of urinary retention, Garcia was removed 3 months ago, patient was recently treated for urinary tract infection with Bactrim, completed course of antibiotics, today around 3 PM she started having fever, rigors shake, he was feeling well in the morning, declined happened afternoon. In the emergency room his temperature 39 Celsius, patient has dysphagia and on modified diet with thickened liquids. Last urine culture significant for E. coli, pansensitive. CT abdomen pelvis is consistent with large amount of stool, bladder wall thickening. Patient has a history of constipation, unclear when was the last bowel movement, patient cannot provide any history, most of the information obtained from family and the ER record. Discharge Exam Patient is awake and much more conversant he is even animated and did smile a little bit today. Exam is regular abdominal examination is soft nontender nondistended Updated Medication List Medication Instructions Recorded Confirmed Type carbidopa 25 mg-levodopa 100 mg 1 tab PO QID 12/04/21 09/05/23 History tablet (Sinemet) cholecalciferol (vitamin D3) 50 50 mcg PO DAILY 12/04/21 09/05/23 History mcg (2,000 unit) capsule finasteride 5 mg tablet (Proscar) 5 mg PO QAM 12/04/21 09/05/23 History pantoprazole 40 mg tablet,delayed 40 mg PO 3XWK 12/04/21 09/05/23 History release cyanocobalamin (vitamin B-12) 1,000 mcg PO DAILY 01/21/22 09/05/23 History 1,000 mcg tablet (Vitamin B-12) bisacodyl 10 mg rectal suppository 10 mg MA Q48H PRN Constipation 10/06/22 09/05/23 History (Dulcolax (bisacodyl)) magnesium hydroxide 400 mg/5 mL 30 ml PO Q48H PRN Constipation 10/06/22 09/05/23 History oral suspension (Milk of Magnesia) sodium phosphates 19 gram-7 118 ml MA Q72H PRN Constipation 10/06/22 09/05/23 History gram/118 mL enema (Fleet Enema) metoprolol tartrate 25 mg tablet 12.5 mg (1/2 x 25 mg) PO BID #30 10/10/22 09/05/23 Rx tabs aspirin 81 mg tablet,delayed 81 mg PO DAILY 03/30/23 09/05/23 History release acetaminophen 650 mg rectal 650 mg MA Q4H PRN FEVER <99.5 09/05/23 09/05/23 History suppository carboxymethylcellulose sodium 0.5 1 drp OPB BID 09/05/23 09/05/23 History % eye drops (Refresh Tears) carboxymethylcellulose sodium 0.5 1 drp OPB BID PRN Dry Eyes 09/05/23 09/05/23 History % eye drops (Refresh Tears) clotrimazole 1 % topical cream 1 applic topical BID PRN Rash 09/05/23 09/05/23 History (Lotrimin AF (clotrimazole)) hydrocortisone 1 % topical cream 1 applic topical BID PRN LEFT 09/05/23 09/05/23 History EAR/NOSE/OUTER EYE RASH [id number] 3.3 4 drp OTL DAILY PRN 09/05/23 09/05/23 History mg-3 mg-10 mg-0.5 mg/mL ear INFLAMMATION/ITCHING drops,susp selenium sulfide 1 % shampoo 1 applic topical 2XWK 09/05/23 09/05/23 History (Selsun Blue) triamcinolone acetonide 0.1 % 1 applic topical BID PRN Rash 09/05/23 09/05/23 History topical cream ciprofloxacin HCl 500 mg tablet 500 mg PO BID #4 tabs 09/11/23 Rx metronidazole 500 mg tablet 500 mg PO BID #4 tabs 09/11/23 Rx polyethylene glycol 3350 17 17 g PO DAILY #0 grams 09/11/23 09/05/23 Rx gram/dose oral powder (Miralax) sennosides 8.6 mg tablet (senna) 17.2 mg (2 x 8.6 mg) PO DAILY #0 09/11/23 09/05/23 Rx tabs Hospital Stay Data Consultations 09/05/23 18:49 ED Decision to Admit Stat Diagnostic Imagining Performed 09/05/23 17:18 CT abd pelvis wo con Stat 09/06/23 13:[address] [CT head/brain wo con] Urgent 09/06/23 14:25 US point of care ultrasound Urgent Pending Results Patient Have Any Pending Studies at Discharge: No Discharge Instructions Given to Patient (Per Discharging Provider) pt needs to have assured bowel movements at least every other day complete antibiotic course Total Time Total Time Spent Total Time Spent (In Minutes): It required greater than 30 minutes to prepare this patient for discharge. Coding Level of Care Code 66948 INP/OBS DISCH >30 MIN Diagnoses Acute metabolic encephalopathy G93.41 Dementia F03.90 Parkinson disease G20 Hypertension I10 NADINE (acute kidney injury) N17.9
== END 2023-09-11 16:27 | DRG 871 ==
LOC: ED 16:54 → SUATTDRO 20:06 → EDINP 20:06 → 2S 09-06 08:13 → 3W 09-10 17:47

== ENCOUNTER 2024-06-06 21:01 | Inpatient (IN) ==
--- OUTSIDE RECORDS SUMMARY | 2024-06-06 21:06 | External Medical Summary | Summary of Care ---
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 10 8 Active ketoconazole 2 % shampoo 9 Active Cholecalciferol (VITAMIN D3) 1000 units CAPS Take by mouth daily. Active Carbidopa-Levod opa 25-100 MG Oral Tablet Take 1 Tablet by mouth in the morning and 1 Tablet at noon and 1 Tablet in the evening and 1 Tablet before bedtime. 1 Active Pantoprazole Sodium 40 MG Oral Tablet Delayed Release (Protonix) Take 1 Tablet by mouth once a day on Friday, Friday, and Friday only. 2 Active Aspirin 81 MG Oral Tablet Chewable Take 1 Tablet by mouth in the morning. Active Vitamin B-12 1000 MCG Oral Tablet Take 1 Tablet by mouth in the morning. Active Psyllium 28.3 % Oral Powder Take by mouth . daily Active Metoprolol Tartrate 25 MG Oral Tablet (Lopressor) Take 0.5 Tablets by mouth in the morning and 0.5 Tablets before bedtime. Active Senna 8.6 MG Oral Capsule Take by mouth daily. Active Acetaminophen 325 MG Oral Tablet (Tylenol) Take 2 Tablets by mouth every 4 hours as needed. 3 Active Polyethylene Glycol 3350 17 GM Oral Packet (MiraLax) Take 1 Packet by mouth in the morning. Active Acetaminophen 325 MG Rectal Suppository (Tylenol) Administer 2 Suppositories into the rectum every 4 hours as needed (Fever greater than 99.5F). Active Neomycin-Polymy za-HC [id number] Otic Suspension (Cortisporin) Administer 4 Drops into the left ear as needed for Itching. Active Bisacodyl 10 MG Rectal Suppository (Dulcolax) Administer 1 Suppository into the rectum every other day as needed for Constipation. Active Fleet Enema Rectal Enema Every 72 hours as needed for constipation Active Hydrocortisone 1 % External Ointment Apply topically to affected area every 12 hours as needed for Irritation. Apply to left ear Active Butenafine HCl 1 % External Cream (Lotrimin Ultra) Apply topically to affected area as needed. Apply to effected area Active Magnesium Hydroxide 400 MG/5ML Oral Suspension (Milk of Magnesia) Take by mouth daily as needed for Constipation. Active Carboxymethylce llulose Sodium 0.5 % Ophthalmic Solution (Refresh Tears) Instill 1 Drop into both eyes in the morning and 1 Drop before bedtime. Active Selsun Blue Salon 1 % External Shampoo (Pyrithione Zinc) Apply topically to affected area. Every evening Celeste, Sun Active Mupirocin 2 % External Ointment (Bactroban) Apply topically to affected area as needed. Active Triamcinolone Acetonide 0.1 % External Cream (Aristocort) Apply topically to affected area as needed. Active documented as of this encounter (statuses as of 04/22/2024) Active Problems Problem Noted Date Diagnosed Date MVP (mitral valve prolapse) 01/18/2022 Atrial ectopy 01/18/2022 History of colonic polyps 05/17/2011 Overview (01/06/2017): 09/27/2014: normal colonoscopy, no further colonoscopy needed 08/13/2011: tubular adenoma appendix 01/31/2010: villous adenoma ICD-10 update of inactive term Chronic otitis externa 10/03/2009 History of tobacco use 09/22/2009 Benign neoplasm of colon 06/14/2009 Overview (06/21/2013): 08/13/2011: adenoma, repeat 08/201408/01/2010: ascending colon normal mucosa, repeat 08/201106/14/2009: single adenoma repeat 08/201006/14/09: polyps hyperplastic and villous tissue repeat in 6 months DYSLIPIDEMIA, GOAL TO BE DETERMINED 03/16/2009 Overview (03/16/2009): Per Lipid Taxonomy. SENSORNEUR HEAR LOSS,BILAT,L>R 12/21/2007 Subjective tinnitus 12/21/2007 Chronic rhinitis 12/21/2007 HTN, goal below 140/90 08/22/2006 Malignant neoplasm of skin 05/25/2002 Overview (07/11/2015): ICD-10 update of inactive term Malignant neoplasm of skin 05/25/2002 Overview (07/11/2015): ICD-10 update of inactive term Malignant neoplasm of skin 05/25/2002 Overview (07/11/2015): ICD-10 update of inactive term Actinic keratosis 11/25/2001 Malignant neoplasm of skin 11/24/2001 Overview (07/11/2015): ICD-10 update of inactive term DIVERTICULOSIS OF COLON 05/21/2000 documented as of this encounter (statuses as of 04/22/2024) Resolved Problems Problem Noted Date Diagnosed Date Resolved Date Benign neoplasm of colon 06/27/2006 Overview (07/01/2006): repeaty colonoscopy in 3 years ADVANCE DIRECTIVE INFORMATION 07/30/2004 02/09/2024 Overview (08/24/2004): see scanned dirctive PURE HYPERCHOLESTEROLEM 03/07 Overview (03/16/2009): Per Lipid Taxonomy. SENSORNEUR HEAR LOSS NOS documented as of this encounter (statuses as of 04/22/2024) Immunizations Name Administration Dates Next Due H1N1 2009 Influenza, IM 06/02/2009 Pneumococcal Conjugate Vacc, 13 Valent (Prevnar) 11/07/2014 Seasonal Influenza Vac., MDV , IM, 0.5 mL (Fluzone) 01/31/2014,12/21/2012,01/27/2012,01/10,01/16/2010,12/16/2008,01/19/2008 ,01/07/2007,02/05/2006 01/11/2012 Seasonal Influenza, Quadriva lent, No Preserve, IM 01/24/2015 TDAP, Age 7 and older, IM (Adacel) 12/03/2010 Varicella Zoster Vaccine (Adult) 03/23/2008 documented as of this encounter Social History Tobacco Use Types Packs/Day Years Used Date Smoking Tobacco: Former Pipe Q uit: 06/01/1968 Smokeless Tobacco: Never Comments:infrequent pipe smo ker Alcohol Use Standard Drinks/Week Comments Not Currently 2.5 (1 standard drin k = 0.6 oz pure alcohol) 1 glass of red wine occ evening Sex and Gender Information Value Date Recorded Sex Assigned at Not on file Legal Sex Male 6:03 AM EST Gender Identity Not on file Sexual Orientation Not on file 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, 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 Not on file Not o n file Not on file documented as of this encounter Last Filed Vital Signs Vital Sign Reading Time Taken Comments Blood Pressure 122/76 04/22/2024 2:28 PM EST Pulse 66 04/22/2024 2:28 PM EST Temperature 36.4 C (97.6 F) 04/22/2024 2:28 PM ES T Respiratory Rate 16 04/22/2024 2:28 PM EST Oxygen Saturation - - Inhaled Oxygen Concentration - - Weight - - Height - - Body Mass Index - - documented in this encounter Progress Notes * Norma Pennington MD - 04/22/2024 3:01 PM EST CLINIC NOTES [facility] [place] [address] [place] [address] Onel Davenport : 1935 NEUROLOGY OUTPATIENT NOTE 04/22/2024 HISTORY: The patient is referred for consultation by Dr. Marion, who will be receiving a copy of this note. Patient comes today in follow-up of mild cognitive impairment with Parkinson's disease. There has not been any change in medical or surgical history. He briefly tried being without an indwelling catheter and he remained in urinary retention and had to be placed again. He no longer ambulates which frustrates his . She does pay for someone to come in and stand him once a week she feels physicaltherapy should be pushing him more and doing more with him he has essentially no longer ambulatory there has not been any hallucinations his short-term memory may be declining mildly. He has variableswallowing in his seen by speech therapy. Past Medical History: Diagnosis Date basal cell carcinoma-- lt upper back -, lt back-, mid back-, Dr Christianson Benign neoplasm of colon 06/27/06 repeat colonoscopy in 3 years Benign neoplasm of colon 06/14/09 polyps hyperplastic and villous tissue repeat in 6 monthss Benign neoplasm of colon 01/31/2010 adenoma, repeat 08/2010 Benign neoplasm of colon 08/14/11 adenomatous polyp repeat in 3 yrs Dyslipidemia, goal LDL below 160 INFORMATION 03/11 fall from tree, 5 fx ribs, punctured lung, hosp Penetration of eyeball with (nonmagnetic) foreign body(871.6) 1956 corrected 20/200 right eye Sensorineural hearing loss Left Patient Active Problem List Diagnosis DIVERTICULOSIS OF COLON Malignant neoplasm of skin Actinic keratosis Malignant neoplasm of skin Malignant neoplasm of skin Malignant neoplasm of skin HTN, goal below 140/90 SENSORNEUR HEAR LOSS,BILAT,L>R Subjective tinnitus Chronic rhinitis DYSLIPIDEMIA, GOAL TO BE DETERMINED Benign neoplasm of colon History of tobacco use Chronic otitis externa History of colonic polyps MVP (mitral valve prolapse) Atrial ectopy Past Surgical History: Procedure Laterality Date COLONOSCOPY THRU STOMA, W/BIOPSY 06/27/06 path-hyperplastic tissue-repeat in 3 years COLONOSCOPY W/ BIOPSY (RECTUM) 08/01/10 diverticulosis & 1 polyp--biopsies did not show evidence of reccurent polyp growth repeat in 1 year COLONOSCOPY W/ LESION REMOVAL, SNARE 06/14/09 polyps hyperplastic and villous tissue repeat in 6 monthss COLONOSCOPY W/ LESION REMOVAL, SNARE 01/31/10 polyps repeat in 6mos COLONOSCOPY, DIAGNOSTIC (RECTUM) 08/13/2011 adenomatous polyp repeat in 3 yrs COLONOSCOPY, OUTSIDE PROCEDURE 09/19/2014 no further colonoscopy FLEX SIG, GI REFERRAL OP 2000 diverticulosis KNEE ARTHROSCOPY/MENISCECTOMY Left 1984 Knee Scope,Med/Lat Menisectomy-L REMOVAL OF SECONDARY CATARACT Right 1956 SECONDARY TO TRAUMA-PUNCTURED LENS REMOVE TONSILS & ADENOIDS, UNDER 12 1945 Tonsillectomy/Adenoids,<12 Y/O THIGH OR KNEE SURGERY NEC 1948 Knee/Leg Other Procedures Unlisted-CYST r KNEE Social History Socioeconomic History Marital status: Spouse name: Joanna Number of children: 3 Years of education: Not on file Highest education level: Not on file Occupational History 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, 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 Employer: [email or web address] [facility] [employer] Comment: compliance problems Tobacco Use Smoking status: Former Types: Pipe Quit date: 06/01/1968 Years since quittin.9 Smokeless tobacco: Never Tobacco comments: infrequent pipe smoker Substance and Sexual Activity Alcohol use: Not Currently Alcohol/week: 2.5 standard drinks of alcohol Types: 3 5 oz of wine per week Comment: 1 glass of red wine occ evening Drug use: No Sexual activity: Yes Partners: Female Other Topics Concern Service No Blood Transfusions No Caffeine Concern No Occupational Exposure No Hobby Hazards No Sleep Concern No Stress Concern No Weight Concern No Special Diet No Back Care No Exercise Yes Bike Helmet Yes Seat Belt Yes Self-Exams Yes Social History Narrative Born in [place], [place], in [facility] since 1957, retired [employer] 1990 Adopted at , father was a doctor, mother a nurse Social Needs Financial Resource Strain: Low Risk (07/05/2022) Received from [facility] ([facility]), [facility] ([facility]) Financial Resource Strain Sometimes people find that their income does not quite cover their living costs. In the last 12 months, has this happened to you?: No What is your current work situation? 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) Food Insecurity: Low Risk (07/05/2022) Received from [facility] ([facility]), [facility] ([facility]) Food Insecurity Within the past 12 months we worried whether our food would run out before we got the money to buy more.: Never true Within the past 12 months the food we bought just didn't last and we didn't have money to get more.: Never true Transportation Needs: Not on file Social Connections: Low Risk (07/05/2022) Received from [facility] ([facility]), [facility] ([facility]) Social Connections How often do you feel that you lack companionship?: Hardly ever How often do you feel left out?: Hardly Ever How often do you feel isolated from others?: Hardly ever Housing Stability: Not on file Family History Adopted: Yes Problem Relation Name Age of Onset Allergies Daughter Current Outpatient Medications Medication Sig Dispense Refill finasteride (PROSCAR) 5 MG Tablet Take 1 Tablet by mouth in the morning. 10 Cholecalciferol (VITAMIN D3) 1000 units CAPS Take by mouth daily. Carbidopa-Levodopa 25-100 MG Oral Tablet Take 1 Tablet by mouth in the morning and 1 Tablet at noonand 1 Tablet in the evening and 1 Tablet before bedtime. Pantoprazole Sodium 40 MG Oral Tablet Delayed Release (Protonix) Take 1 Tablet by mouth once a day on Friday, Friday, and Friday only. Aspirin 81 MG Oral Tablet Chewable Take 1 Tablet by mouth in the morning. Vitamin B-12 1000 MCG Oral Tablet Take 1 Tablet by mouth in the morning. Metoprolol Tartrate 25 MG Oral Tablet (Lopressor) Take 0.5 Tablets by mouth in the morning and 0.5 Tablets before bedtime. Senna 8.6 MG Oral Capsule Take by mouth daily. Acetaminophen 325 MG Oral Tablet (Tylenol) Take 2 Tablets by mouth every 4 hours as needed. Polyethylene Glycol 3350 17 GM Oral Packet (MiraLax) Take 1 Packet by mouth in the morning. Acetaminophen 325 MG Rectal Suppository (Tylenol) Administer 2 Suppositories into the rectum every 4 hours as needed (Fever greater than 99.5F). [id number]-[id number] 3.5-97981-1 Otic Suspension (Cortisporin) Administer 4 Drops into the left ear as needed for Itching. Bisacodyl 10 MG Rectal Suppository (Dulcolax) Administer 1 Suppository into the rectum every other day as needed for Constipation. Fleet Enema Rectal Enema Every 72 hours as needed for constipation Hydrocortisone 1 % External Ointment Apply topically to affected area every 12 hours as needed for Irritation. Apply to left ear Magnesium Hydroxide 400 MG/5ML Oral Suspension (Milk of Magnesia) Take by mouth daily as needed forConstipation. Carboxymethylcellulose Sodium 0.5 % Ophthalmic Solution (Refresh Tears) Instill 1 Drop into both eyes in the morning and 1 Drop before bedtime. Selsun Blue Salon 1 % External Shampoo (Pyrithione Zinc) Apply topically to affected area. Every evening Celeste, Sun Mupirocin 2 % External Ointment (Bactroban) Apply topically to affected area as needed. Triamcinolone Acetonide 0.1 % External Cream (Aristocort) Apply topically to affected area as needed. ketoconazole 2 % shampoo (Patient not taking: Reported on 04/22/2024) Psyllium 28.3 % Oral Powder Take by mouth . daily (Patient not taking: Reported on 04/22/2024) Butenafine HCl 1 % External Cream (Lotrimin Ultra) Apply topically to affected area as needed. Apply to effected area No current facility-administered medications for this visit. Review of patient's allergies indicates: Allergen Reactions Pollen Conjunctivitis rhinitis Results for orders placed or performed in visit on 06/10/12 CBC Result Value Ref Range WBC 6.58 4.00 - 10.80 K/uL RBC 4.60 4.50 - 5.25 M/uL HGB 14.5 14.0 - 16.5 g/dL HCT 43.1 40.0 - 47.0 % MCV 93.7 82.0 - 99.5 fL MCH 31.5 27.0 - 34.0 pg MCHC 33.6 32.0 - 36.0 g/dL RDW 13.1 11.5 - 15.5 % PLT 230 140 - 400 K/uL MPV 9.8 6.6 - 11.1 fL Results for orders placed or performed in visit on 01/18/22 BASIC METABOLIC PANEL Result Value Ref Range CREATININE 1.29 0.6 - 1.4 MG/DL EGFR 49.9 ML/MIN POTASSIUM 4.0 3.5 - 5.1 MMOL/L GLUCOSE 86 70 - 99 MG/DL Results for orders placed or performed in visit on 06/04/10 LIPID PANEL Result Value Ref Range HOURS FASTING 12 hours Triglycerides 101 55 - 260 mg/dL Cholesterol 166 <200 mg/dL HDL Cholesterol 54 40 - 59 mg/dL Cholesterol-HDL Ratio 3.1 LDL Cholesterol 92 0 - 129 mg/dL Results for orders placed or performed in visit on 11/02/14 LIPID PANEL WITH DIRECT LDL IF TG ABOVE 400 MG/DL Result Value Ref Range TRIGLYCERIDES-OUTSIDE LAB 88 0 - 150 MG/DL CHOLESTEROL-OUTSIDE LAB 154 0 - 200 MG/DL HDL-OUTSIDE LAB 49 40 - 60 MG/DL LDL (CALCULATED)-OUTSIDE LAB 87 MG/DL Lab Results Component Value Date/Time HEMOGLOBIN A1C - [facility] 4.9 04/04/2000 07:53 AM Lab Results Component Value Date/Time TSH - [facility] 3.58 06/10/2012 09:49 AM TSH - [facility] 3.67 06/07/2008 07:53 AM TSH - OUT[facility]IDE LAB 3.370 05/15/2020 12:00 AM TSH - [facility] 3.12 06/17/2018 12:00 AM No results found for: "YINA" No results found for: "[id number]" No results found for: "[id number]" No results found for: "[id number]" No results found for: "25OHVITAMIND" Vitamin D Level Interpretation deficient: <20 ng/ml insufficient: 20-30 ng/ml normal: 31-100 ng/ml REVIEW OF SYSTEMS: As above PHYSICAL EXAM: BP 122/76 | Pulse 66 | Temp 36.4 C (97.6 F) (Tympanic) | Resp 16 Patient is awake and alert severely hypophonic decreased blink frequency left hand resting tremor moderate generalized bradykinesia with cogwheel rigidity.. 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 I would advocate ongoing physical temp therapy and attempting ambulation with the patient as tolerated. Return in 6 months Norma Pennington MD 04/22/2024 3:01 PM documented in this encounter Nursing Notes * [facility] - 04/22/2024 2:21 PM EST Chief Complaint Patient presents with Return Neuro documented in this encounter Plan of Treatment Upcoming Encounters Date Type Department Care Team (Late st Contact Info) Description 10/22/2024 2:20 PM EDT Office Visit Neurology [facility] [place] [address] [facility] [place] [address] Norma Pennington MD [address] [facility], [place] [address] Health Maintenance Due Date Last Done Comments Albumin/Creatinine Ratio 09/06/1953 Depression Screening 07/02/2015 07/01/2014 Colonoscopy 09/19/2017 09/19/2014, 05/11/2011, 08/13/2011, Additional history exists DTap/Tdap Vaccines (2 - Td or Tdap) 12/03/2020 12/03/2010, 05/05/2000, 05/05/2000 COVID-19 Vaccine ( season) 2023 01/09/2021, 05/23/2020, 05/02/2020 Influenza Vaccine (FLU shot) (#1) 2023 01/24/2015, 01/31/2014, 12/21/2012, Additional history exists Pneumococcal Vaccine: 50+ Years Completed 11/07/2014, 03/07/2005 Zoster Vaccines Completed 12/10/2017, 10/2017, 03/23/2008 HPV (Gardasil) Vaccine Aged Out No lo nger eligible based on patient's age to complete this topic Hepatitis B Vaccine Aged Out No longe r eligible based on patient's age to complete this topic MENINGOCOCCAL (MENACTRA/MENVEO) Aged Out No longer eligible based on patient's age to complete this topic documented as of this encounter Medical Devices Not on filedocumented as of this encounter Visit Diagnoses Diagnosis 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
--- NOTE | 2024-06-06 22:15 | Emergency Department Note ---
Impression & Plan Encounter for Garcia catheter replacement, Obstructed Garcia catheter ED Provider Note NAME: ONEL TELLO AGE: 88 SEX: M : 1935 ARRIVES VIA: Ambulance INFORMANT: Patient, ED PROVIDER(S): Solange Bansal MD CHIEF COMPLAINT: Catheter not draining HPI: This is an 88-year-old male presenting for Garcia catheter problem. Patient's catheter is not draining. He has over 800 cc of urine in the bladder at this time. Patient is demented Providing history. ROS: Unable to obtain PHYSICAL EXAMINATION: General: resting comfortably in no acute distress Head: Normocephalic and atraumatic Eyes: Normal inspection, extraocular muscles intact Ear, nose, throat: Normal external exam Neck: Normal range of motion Respiratory: speaking in full sentences, symmetric chest rise, no respiratory distress Cardiovascular: Regular rate/rhythm : Garcia catheter in place without drainage, urinary leakage around Garcia Extremities: moves all extremities Neuro: The patient awake and alert, appropriately conversive, symmetric faces, no focal deficits MEDICAL DECISION MAKING: This is an 88-year-old male present for Garcia catheter obstruction. Nursing staff is attempted to troubleshoot including taking out the balloon, flushing the balloon, flushing the Garcia. This all unsuccessful, no extra fluid can be pushed into the Garcia, what ever is pushed and is returned. Unable to pull the Garcia out at this time. Nursing staff then cut the head of the Garcia expecting drainage however this did not work either. Still unable to be pulled out. -I performed a bedside ultrasound of the bladder which does not show the Garcia balloon or catheter in the bladder -Discussed with Dr. Jin, urologist, who will come in to see the patient. -Dr. Jin able to remove the Garcia with increased pressure. Three-way Garcia replaced -Patient discharged back to facility. -Shortly after patient being discharged, nurse alerted me that patient was now febrile, having chills. His fever was elevated to 39 C -Will give Tylenol, 2 L normal saline, get lactic acid level and basic blood work. Will send urinalysis and chest x-ray -Patient's blood pressure has dropped to the 80s systolic. After about 500 cc of fluid, his blood pressure does increase to the 100s -Patient lactic acid 2.6. Otherwise no leukocytosis. No anemia. Lipase within normal limits -Urinalysis does show signs of infection. Will give ceftriaxone -Chest x-ray is read as possible opacity concerning for infectious process. Will give doxycycline just has been ceftriaxone for rule out pneumonia -Patient will require admission at this time Differential diagnosis: Garcia catheter obstruction, sepsis, pneumonia, UTI, URI Diagnostics interpreted by me: ECG: None Cardiac Monitoring: An order was placed for continuous cardiac monitoring. The monitor shows a rate of 86 with sinus rhythm. Past Med/Surg History Problem List (Updated 06/06/24 @ 22:17 by Solange Bansal MD) Obstructed Garcia catheter (Acute) Encounter for Garcia catheter replacement (Acute) Chest pain (Acute) Elevated troponin Severe sepsis PVC (premature ventricular contraction) Aortic stenosis Mitral regurgitation Generalized weakness Renal mass Acute UTI (urinary tract infection) (Acute) Conjunctivitis Superficial thrombophlebitis Irregular heart rhythm follows w/ Dr. Gayle Ambulatory dysfunction Weakness (Acute) COVID-19 (Acute) Parkinson disease Recurrent UTI (urinary tract infection) (Acute) Encounter for pre-operative examination Hypertension (Acute) Altered mental status (Acute) Pneumonia (Acute) Weakness on right side of face Laryngopharyngeal reflux (LPR) Acquired deviated nasal septum Chronic rhinitis Retention of urine, unspecified BPH w urinary obs/LUTS History of SCC (squamous cell carcinoma) of skin History of basal cell carcinoma Medical History Dementia Lab test negative for COVID-19 virus Acute dehydration Weakness Resides in half-way facility Dysphonia Dysarthria and anarthria 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 stage III Dysphagia Other abnormalities of gait and mobility Weakness Muscle spasm of back Hyperlipidemia Diverticulosis of large intestine without perforation or abscess without bleeding History of blood clots Poor historian Hearing deficit Hypertension Surgical History History of colonoscopy Status post Mohs surgery History of knee surgery History of eye surgery Family History Other Adopted Social History Smoking Status: Unknown if ever smoked Second Hand Exposure: No; Do You Dip or Chew Tobacco: No; Preferred Language: Urdu Communication Ability: Impaired Operations Architect Required: No Beliefs That Will Affect Care: None marital status: Current Living Situation: Skilled Nursing Current Living Situation Comment: [employer] current occupational status: retired Feels Safe at Home: Yes Assistive Devices: Walker and Wheelchair Allergies Allergies Allergy/AdvReac Type Severity Reaction Status Date / Time No Known Allergies Allergy Verified 11/07/23 12:27 Home Meds Home Medications Medication Instructions Recorded Confirmed carbidopa 25 mg-levodopa 100 mg 1 tab PO QID 12/04/21 11/07/23 tablet (Sinemet) cholecalciferol (vitamin D3) 50 50 mcg PO DAILY 12/04/21 11/07/23 mcg (2,000 unit) capsule finasteride 5 mg tablet (Proscar) 5 mg PO QAM 12/04/21 11/07/23 pantoprazole 40 mg tablet,delayed 40 mg PO 3XWK 12/04/21 11/07/23 release cyanocobalamin (vitamin B-12) 1,000 mcg PO DAILY 01/21/22 11/07/23 1,000 mcg tablet (Vitamin B-12) bisacodyl 10 mg rectal suppository 10 mg AK Q48H PRN Constipation 10/06/22 11/07/23 (Dulcolax (bisacodyl)) magnesium hydroxide 400 mg/5 mL 30 ml PO Q48H PRN Constipation 10/06/22 11/07/23 oral suspension (Milk of Magnesia) sodium phosphates 19 gram-7 118 ml AK Q72H PRN Constipation 10/06/22 11/07/23 gram/118 mL enema (Fleet Enema) aspirin 81 mg tablet,delayed 81 mg PO DAILY 03/30/23 11/07/23 release acetaminophen 650 mg rectal 650 mg AK Q4H PRN FEVER <99.5 09/05/23 11/07/23 suppository carboxymethylcellulose sodium 0.5 1 drp OPB BID 09/05/23 11/07/23 % eye drops (Refresh Tears) carboxymethylcellulose sodium 0.5 1 drp OPB BID PRN Dry Eyes 09/05/23 11/07/23 % eye drops (Refresh Tears) clotrimazole 1 % topical cream 1 applic topical BID PRN Rash 09/05/23 11/07/23 (Lotrimin AF (clotrimazole)) hydrocortisone 1 % topical cream 1 applic topical BID PRN LEFT 09/05/23 11/07/23 EAR/NOSE/OUTER EYE RASH [id number] 3.3 4 drp OTL DAILY PRN 09/05/23 11/07/23 mg-3 mg-10 mg-0.5 mg/mL ear INFLAMMATION/ITCHING drops,susp selenium sulfide 1 % shampoo 1 applic topical 2XWK 09/05/23 11/07/23 (Selsun Blue) triamcinolone acetonide 0.1 % 1 applic topical BID PRN Rash 09/05/23 11/07/23 topical cream Previous Rx's Medication Instructions Recorded metoprolol tartrate 25 mg tablet 12.5 mg (1/2 x 25 mg) PO BID #30 10/10/22 tabs ciprofloxacin HCl 500 mg tablet 500 mg PO BID #4 tabs 09/11/23 metronidazole 500 mg tablet 500 mg PO BID #4 tabs 09/11/23 polyethylene glycol 3350 17 17 g PO DAILY #0 grams 09/11/23 gram/dose oral powder (Miralax) sennosides 8.6 mg tablet (senna) 17.2 mg (2 x 8.6 mg) PO DAILY #0 09/11/23 tabs Results & Data (ED) Vital Signs Vital Signs - 24 hr 06/06/24 21:10 06/06/24 21:14 06/07/24 00:05 Temperature 36.9 C 38.5 C H Temperature Source Axillary Rectal Pulse Rate 71 69 Pulse Rate [Apical] 101 H Respiratory Rate 20 30 H Respiratory Effort / Characteristics Non-Labored Spontaneous Respiratory Depth Normal Respiratory Pattern Regular Blood Pressure 155/88 H Blood Pressure [Right Arm] 148/102 H Blood Pressure Mean 110 Blood Pressure Mean [Right Arm] 117 Blood Pressure Position Semi-fowlers Blood Pressure Position [Right Arm] Semi-fowlers Pulse Oximetry 96 95 Oxygen Delivery Method Room Air Room Air Sepsis Recent Fever Within 48 Hours No Sepsis New/Unexplained Change in Mental Status No Sepsis Action Taken by Nursing No Action Required 06/07/24 01:00 06/07/24 01:03 06/07/24 01:48 Temperature 39 C H Temperature Source Rectal Pulse Rate 80 Pulse Rate [Apical] 81 86 Respiratory Rate 20 18 Respiratory Effort / Characteristics Respiratory Depth Respiratory Pattern Blood Pressure Blood Pressure [Right Arm] 85/50 L 132/64 Blood Pressure Mean Blood Pressure Mean [Right Arm] 61 86 Blood Pressure Position Blood Pressure Position [Right Arm] Semi-fowlers Semi-fowlers Pulse Oximetry 97 97 Oxygen Delivery Method Room Air Room Air Sepsis Recent Fever Within 48 Hours Sepsis New/Unexplained Change in Mental Status Sepsis Action Taken by Nursing Laboratory Data 06/06/24 23:47 06/06/24 23:47 Lab Results 06/06/24 06/06/24 06/07/24 Range/Units 23:47 23:54 00:10 WBC 9.28 (4.8-10.8) K/ul RBC 4.95 (4.70-6.10) M/uL Hgb 15.4 (14.0-18.0) g/dl Hct 47.2 (42.0-52.0) % MCV 95.4 (80.0-100.0) fL MCH 31.1 (25.0-34.0) pg MCHC 32.6 (32.0-36.0) g/dL RDW Std Deviation 45.9 (36.4-46.3) fL RDW Coeff of Ramy 13.2 (11.5-14.5) % Plt Count 217 (130-400) K/uL MPV 10.5 (9.4-12.4) fL Immature Gran % (Auto) 0.6 % Neut % (Auto) 90.1 % Lymph % (Auto) 7.3 % Wilson % (Auto) 0.9 % Eos % (Auto) 0.9 % Baso % (Auto) 0.2 % Neut # (Auto) 8.36 H (1.40-6.50) K/uL Lymph # (Auto) 0.68 L (1.20-3.40) K/uL Wilson # (Auto) 0.08 L (0.11-0.59) K/uL Eos # (Auto) 0.08 (0.00-0.50) K/uL Baso # (Auto) 0.02 (0.00-0.20) K/uL Immature Gran # (Auto) 0.06 (0.01-0.20) K/uL Polychromasia 1+ Echinocytes 1+ Sodium 143 (136-145) mmol/L Potassium 5.0 (3.5-5.1) mmol/L Chloride 107 (98-107) mmol/L Carbon Dioxide 30 (21-32) mmol/L Anion Gap 6 (3-11) BUN 28 H (6-23) mg/dl Creatinine 1.22 (0.6-1.4) mg/dl Est Cr Clr Drug Dosing Not Reportable eGFR 57.02 BUN/Creatinine Ratio 23.0 H (10-20) Glucose 85 (70-99(Fasting)) mg/dl Lactate (0.4-2.0) mmol/L Calcium 10.1 (8.6-10.3) mg/dl Total Bilirubin 1.0 (0.2-1.0) mg/dl Direct Bilirubin 0.1 (0-0.2) mg/dl AST 22 (13-39) U/L ALT 8 (7-52) U/L Alkaline Phosphatase 143 H (34-104) U/L Total Protein 6.9 (6.0-8.3) gm/dl Albumin 4.2 (3.4-5.0) gm/dl Urine Color Yellow Urine Appearance Clear (Clear) Urine pH 7.0 (4.5-7.5) Ur Specific [place] 1.014 (1.000-1.030) Urine Protein 1+ H (Negative) Urine Glucose (UA) Negative (Negative) Urine Ketones Negative (Negative) Urine Blood 1+ H (Negative) Urine Nitrite Negative (Negative) Urine Bilirubin Negative (Negative) Urine Urobilinogen Negative (Negative) Ur Leukocyte Esterase 3+ H (Negative) Urine WBC (Auto) >50 H (0-5) /hpf Urine RBC (Auto) >20 H (0-2) /hpf U Hyaline Cast (Auto) >20 H (0-2) /lpf U Epithel Cells (Auto) 6-10 H (0-2) /hpf Urine Bacteria (Auto) 4+ H (None Seen) Adenovirus (PCR) Not Detected (NotDetected) B. pertussis DNA (PCR) Not Detected (NotDetected) B.parapertussis DNA PCR Not Detected (NotDetected) C. pneumoniae DNA (PCR) Not Detected (NotDetected) Coronavirus OC43 (PCR) Not Detected (NotDetected) Coronavirus HKU1 (PCR) Not Detected (NotDetected) Coronavirus 229E (PCR) Not Detected (NotDetected) SARS-CoV-2 (PCR) Not Detected (NotDetected) Coronavirus NL63 (PCR) Not Detected (NotDetected) Human Metapneumovir PCR Not Detected (NotDetected) Influenza Type A (PCR) Not Detected (NotDetected) Influenza Type B (PCR) Not Detected (NotDetected) M. pneumoniae (PCR) Not Detected (NotDetected) Parainfluenza 1 (PCR) Not Detected (NotDetected) Parainfluenza 2 (PCR) Not Detected (NotDetected) Parainfluenza 3 (PCR) Not Detected (NotDetected) Parainfluenza 4 (PCR) Not Detected (NotDetected) RSV (PCR) Not Detected (NotDetected) Entero/Rhino (PCR) Not Detected (NotDetected) 06/07/24 Range/Units 01:34 WBC (4.8-10.8) K/ul RBC (4.70-6.10) M/uL Hgb (14.0-18.0) g/dl Hct (42.0-52.0) % MCV (80.0-100.0) fL MCH (25.0-34.0) pg MCHC (32.0-36.0) g/dL RDW Std Deviation (36.4-46.3) fL RDW Coeff of Ramy (11.5-14.5) % Plt Count (130-400) K/uL MPV (9.4-12.4) fL Immature Gran % (Auto) % Neut % (Auto) % Lymph % (Auto) % Wilson % (Auto) % Eos % (Auto) % Baso % (Auto) % Neut # (Auto) (1.40-6.50) K/uL Lymph # (Auto) (1.20-3.40) K/uL Wilson # (Auto) (0.11-0.59) K/uL Eos # (Auto) (0.00-0.50) K/uL Baso # (Auto) (0.00-0.20) K/uL Immature Gran # (Auto) (0.01-0.20) K/uL Polychromasia Echinocytes Sodium (136-145) mmol/L Potassium (3.5-5.1) mmol/L Chloride (98-107) mmol/L Carbon Dioxide (21-32) mmol/L Anion Gap (3-11) BUN (6-23) mg/dl Creatinine (0.6-1.4) mg/dl Est Cr Clr Drug Dosing eGFR BUN/Creatinine Ratio (10-20) Glucose (70-99(Fasting)) mg/dl Lactate 2.6 H* (0.4-2.0) mmol/L Calcium (8.6-10.3) mg/dl Total Bilirubin (0.2-1.0) mg/dl Direct Bilirubin (0-0.2) mg/dl AST (13-39) U/L ALT (7-52) U/L Alkaline Phosphatase (34-104) U/L Total Protein (6.0-8.3) gm/dl Albumin (3.4-5.0) gm/dl Urine Color Urine Appearance (Clear) Urine pH (4.5-7.5) Ur Specific [place] (1.000-1.030) Urine Protein (Negative) Urine Glucose (UA) (Negative) Urine Ketones (Negative) Urine Blood (Negative) Urine Nitrite (Negative) Urine Bilirubin (Negative) Urine Urobilinogen (Negative) Ur Leukocyte Esterase (Negative) Urine WBC (Auto) (0-5) /hpf Urine RBC (Auto) (0-2) /hpf U Hyaline Cast (Auto) (0-2) /lpf U Epithel Cells (Auto) (0-2) /hpf Urine Bacteria (Auto) (None Seen) Adenovirus (PCR) (NotDetected) B. pertussis DNA (PCR) (NotDetected) B.parapertussis DNA PCR (NotDetected) C. pneumoniae DNA (PCR) (NotDetected) Coronavirus OC43 (PCR) (NotDetected) Coronavirus HKU1 (PCR) (NotDetected) Coronavirus 229E (PCR) (NotDetected) SARS-CoV-2 (PCR) (NotDetected) Coronavirus NL63 (PCR) (NotDetected) Human Metapneumovir PCR (NotDetected) Influenza Type A (PCR) (NotDetected) Influenza Type B (PCR) (NotDetected) M. pneumoniae (PCR) (NotDetected) Parainfluenza 1 (PCR) (NotDetected) Parainfluenza 2 (PCR) (NotDetected) Parainfluenza 3 (PCR) (NotDetected) Parainfluenza 4 (PCR) (NotDetected) RSV (PCR) (NotDetected) Entero/Rhino (PCR) (NotDetected) Administered Medications Sodium Chloride (Nss) 1,000 mls @ 999 mls/hr IV .Q1H1M CORI Stop: 06/07/24 03:45 Last Admin: 06/07/24 01:47 Dose: 999 mls/hr Documented By: Infusion: 06/07/24 01:47 Dose: Infused Documented By: Admin: 06/07/24 01:00 Dose: 999 mls/hr Documented By: EMB Discontinued Medications Acetaminophen (Ofirmev) 1,000 mg in 100 mls @ 400 mls/hr IV NOW STA Stop: 06/07/24 00:18 Last Infusion: 06/07/24 00:28 Dose: Infused Documented By: Admin: 06/07/24 00:08 Dose: 400 mls/hr Documented By: EMB Ceftriaxone Sodium (Rocephin) 2,000 mg in 50 mls @ 100 mls/hr IV NOW STA Stop: 06/07/24 01:48 Last Infusion: 06/07/24 02:14 Dose: Infused Documented By: Admin: 06/07/24 01:43 Dose: 100 mls/hr Documented By: EMB Imaging Data Radiologist's Impression: Chest X-Ray 06/06/24 23:47 EXAM: XR chest 1V portable CLINICAL HISTORY: Fever, chills, AMS TECHNIQUE: An X-ray image of the chest is obtained in AP projection. COMPARISON: 09/05/2023, CR Chest FINDINGS: Pulmonary Parenchyma: Inadequate inspiration seen Patient is rotated Chest leads are seen Questionable opacification seen in left lung lower zone No evidence of collapse. No pulmonary nodules are identified. Mild blunting of left costophrenic angle seen Right costophrenic angle appears normal Heart and Mediastinum: Heart size and shape are normal. No mediastinal widening or masses. Prominent both rajesh are identified Bony Thorax: Degenerative changes seen in visualized spine with osteophytes Soft Tissues: Soft tissues overlying the chest wall are unremarkable. IMPRESSION: Mild blunting of left costophrenic angle, likely due to pleural effusion/thickening. No significant change Questionable opacification in left lung lower zone, this may be due to overlying soft tissue shadow, however possibility of evolving infection cannot be excluded. Clinical correlation and follow-up is advised. This was not well seen in prior examination Prominent both rajesh likely due to vascular congestion/lymph nodes No other significant interval changes seen Electronically signed by Lucy Stanley 06-07-2024 01:33 AM Discharge Plan Visit Data Chief Complaint: Catheter Replacement Stated Complaint: CATHETER LEAKING, CANNOT REMOVE IT ED Provider: Solange Bansal Discharge Problem: Encounter for Garcia catheter replacement, Obstructed Garcia catheter Patient Disposition: Home - Self-Care Discharge Instructions Krames/Other Patient Handouts: ED Garcia Catheter, Care, ED Garcia Cath Feed Tube Replace Activity Restrictions/Additional Instructions: Onel was seen for his Garcia catheter problem. This was replaced by a urologist. There would likely be some persistent bleeding either in the urine or around the catheter/penile tip. This should improve in the next few days. Come back for any repeat obstruction of the Garcia. Please follow-up with urology for placement periodically. Forms Stand Alone Forms: [facility], Important Visit Information Prescriptions Prescriptions: No Action pantoprazole 40 mg tablet,delayed release (DR/EC) 40 mg PO 3XWK Rx Instructions: Friday, Friday, Friday finasteride [Proscar] 5 mg tablet 5 mg PO QAM carbidopa-levodopa [Sinemet] 25-100 mg tablet 1 tab PO QID cholecalciferol (vitamin D3) 50 mcg (2,000 unit) capsule 50 mcg PO DAILY magnesium hydroxide [Milk of Magnesia] 400 mg/5 mL Suspension 30 ml PO Q48H PRN (Reason: Constipation) Rx Instructions: Only give if resident has no bowel movement for 2 days bisacodyl [Dulcolax (bisacodyl)] 10 mg Suppository 10 mg AK Q48H PRN (Reason: Constipation) Rx Instructions: Only give if no bowel movement from Milk of Mag Fleet Enema 19-7 gram/118 mL Enema 118 ml AK Q72H PRN (Reason: Constipation) Rx Instructions: Only give if no bowel movement from Milk of Mag or Dulcolax metoprolol tartrate 25 mg Tablet 12.5 mg PO BID Qty: 30 0RF cyanocobalamin (vitamin B-12) [Vitamin B-12] 1,000 mcg Tablet 1,000 mcg PO DAILY aspirin 81 mg Tablet,Delayed Release (Dr/Ec) 81 mg PO DAILY [id number] 3.3-3-10-0.5 mg/mL Drops,Suspension 4 drp OTL DAILY PRN (Reason: INFLAMMATION/ITCHING ) acetaminophen 650 mg Suppository 650 mg AK Q4H MDD 3 GRAMS APAP/24 HOURS PRN (Reason: FEVER <99.5) triamcinolone acetonide 0.1 % Cream 1 applic TOPICAL BID PRN (Reason: Rash) carboxymethylcellulose sodium [Refresh Tears] 0.5 % Drops 1 drp OPB BID carboxymethylcellulose sodium [Refresh Tears] 0.5 % Drops 1 drp OPB BID PRN (Reason: Dry Eyes) hydrocortisone 1 % Cream 1 applic TOPICAL BID PRN (Reason: LEFT EAR/NOSE/OUTER EYE RASH) clotrimazole [Lotrimin AF (clotrimazole)] 1 % Cream 1 applic TOPICAL BID PRN (Reason: Rash) Selsun Blue 1 % Shampoo 1 applic TOPICAL 2XWK Rx Instructions: FRIDAY & WEDNESDAYS. massage into affected area; leave on for 10 mins ; rinse off thoroughly metronidazole 500 mg Tablet 500 mg PO BID Qty: 4 0RF ciprofloxacin HCl 500 mg Tablet 500 mg PO BID Qty: 4 0RF sennosides [senna] 8.6 mg Tablet 17.2 mg PO DAILY Qty: 0 0RF polyethylene glycol 3350 [Miralax] 17 gram/dose Powder 17 g PO DAILY Qty: 0 0RF Rx Instructions: FRI, FRI, FRI Referrals Referrals: Doyle Pimentel [Primary Care Provider] -
--- NOTE | 2024-06-06 22:19 | Urology Consultation ---
Date of Consultation June 06, 2024 Assessment & Plan (1) Obstructed Garcia catheter: (2) Encounter for Garcia catheter replacement: Plan 88-year-old male with dementia who lives at [facility] who came in with a nondraining catheter. Nursing emergency department when was unable to deflate the balloon or remove the catheter after cutting off the balloon port and the outflow system. Urology was consulted. As nursing had already cut off the balloon port and the outflow area, my options were limited for attempting to get this balloon deflated. At this point, I applied firm traction on the catheter and was able to remove it in its entirety. The balloon was still inflated. There was a small amount of blood at the urethral meatus. Under sterile conditions, I placed a 22 Iraqi three-way catheter. There is initial light pink urine that drained but the urine beyond this was clear yellow. Balloon was inflated with 10 cc of sterile water and it was set to gravity drainage. CBI inflow port was capped. Patient stable for discharge back to his facility from a euro perspective Message has been sent to schedule follow-up in the urology office to discuss Garcia catheter management. Would recommend catheter stays for at least 10 to 14 days given urethral trauma. Unclear why the balloon port would not deflate as I was unable to get any history as to when this catheter was placed at his facility and I was not able to interrogate the balloon port as it had already been cut by nursing before I was called. History of Present Illness History of Present Illness 88-year-old male with dementia who lives at [facility] who came in with a nondraining catheter. Nursing emergency department when was unable to deflate the balloon or remove the catheter after cutting off the balloon port and the outflow system. Urology was consulted. Unable to get a history from the patient due to his mental status. He does follow with our office and had a catheter placed last on 04/05/2024. He was seen in our office on 04/16/2024 for catheter removal. There are no notes after this so I assume a catheter was replaced by the facility. Allergies Allergy/AdvReac Type Severity Reaction Status Date / Time No Known Allergies Allergy Verified 11/07/23 12:27 Home Medications Medication Instructions Recorded Confirmed Type carbidopa 25 mg-levodopa 100 mg 1 tab PO QID 12/04/21 11/07/23 History tablet (Sinemet) cholecalciferol (vitamin D3) 50 50 mcg PO DAILY 12/04/21 11/07/23 History mcg (2,000 unit) capsule finasteride 5 mg tablet (Proscar) 5 mg PO QAM 12/04/21 11/07/23 History pantoprazole 40 mg tablet,delayed 40 mg PO 3XWK 12/04/21 11/07/23 History release cyanocobalamin (vitamin B-12) 1,000 mcg PO DAILY 01/21/22 11/07/23 History 1,000 mcg tablet (Vitamin B-12) bisacodyl 10 mg rectal suppository 10 mg MS Q48H PRN Constipation 10/06/22 11/07/23 History (Dulcolax (bisacodyl)) magnesium hydroxide 400 mg/5 mL 30 ml PO Q48H PRN Constipation 10/06/22 11/07/23 History oral suspension (Milk of Magnesia) sodium phosphates 19 gram-7 118 ml MS Q72H PRN Constipation 10/06/22 11/07/23 History gram/118 mL enema (Fleet Enema) metoprolol tartrate 25 mg tablet 12.5 mg (1/2 x 25 mg) PO BID #30 10/10/22 11/07/23 Rx tabs aspirin 81 mg tablet,delayed 81 mg PO DAILY 03/30/23 11/07/23 History release acetaminophen 650 mg rectal 650 mg MS Q4H PRN FEVER <99.5 09/05/23 11/07/23 History suppository carboxymethylcellulose sodium 0.5 1 drp OPB BID 09/05/23 11/07/23 History % eye drops (Refresh Tears) carboxymethylcellulose sodium 0.5 1 drp OPB BID PRN Dry Eyes 09/05/23 11/07/23 History % eye drops (Refresh Tears) clotrimazole 1 % topical cream 1 applic topical BID PRN Rash 09/05/23 11/07/23 History (Lotrimin AF (clotrimazole)) hydrocortisone 1 % topical cream 1 applic topical BID PRN LEFT 09/05/23 11/07/23 History EAR/NOSE/OUTER EYE RASH [id number] 3.3 4 drp OTL DAILY PRN 09/05/23 11/07/23 History mg-3 mg-10 mg-0.5 mg/mL ear INFLAMMATION/ITCHING drops,susp selenium sulfide 1 % shampoo 1 applic topical 2XWK 09/05/23 11/07/23 History (Selsun Blue) triamcinolone acetonide 0.1 % 1 applic topical BID PRN Rash 09/05/23 11/07/23 History topical cream ciprofloxacin HCl 500 mg tablet 500 mg PO BID #4 tabs 09/11/23 11/07/23 Rx metronidazole 500 mg tablet 500 mg PO BID #4 tabs 09/11/23 11/07/23 Rx polyethylene glycol 3350 17 17 g PO DAILY #0 grams 09/11/23 11/07/23 Rx gram/dose oral powder (Miralax) sennosides 8.6 mg tablet (senna) 17.2 mg (2 x 8.6 mg) PO DAILY #0 09/11/23 11/07/23 Rx tabs Patient History Medical History Dementia Lab test negative for COVID-19 virus Acute dehydration Weakness Resides in halfway facility Dysphonia Dysarthria and anarthria 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 stage III Dysphagia Other abnormalities of gait and mobility Weakness Muscle spasm of back Hyperlipidemia Diverticulosis of large intestine without perforation or abscess without bleeding History of blood clots Poor historian Hearing deficit Hypertension Surgical History History of colonoscopy Status post Mohs surgery History of knee surgery History of eye surgery Family History Other Adopted Social History Smoking Status: Unknown if ever smoked Second Hand Exposure: No; Do You Dip or Chew Tobacco: No; Preferred Language: Solomon Islander Communication Ability: Impaired 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 Garcia catheter in place with balloon port and outflow area previously cut off. Extremities: Moves all 4 spontaneously Neuro: No gross deficits Skin: Warm, dry, no rashes noted Results & Data Vital Signs (Past 12 Hours) Vital Signs Temp Pulse Resp BP Pulse Ox O2 Del Method 06/06/24 21:14 36.9 C 69 20 155/88 H 96 Room Air 06/06/24 21:10 71 PG Care Time/CCT Total # of Minutes Spent Total Time Spent with Patient: Total time spent is greater than 50% in coordination of care (as documented) at patient's floor/unit and/or counseling patient: Coding Level of Care Code 28982 OP VST EST MOD 30 MIN Diagnoses Obstructed Garcia catheter T83.091A Encounter for Garcia catheter replacement Z46.6
[2024-06-07] MEDS: ACETAMINOPHEN 1,000 MG/100 ML VIAL IV STA ×2 (00:08→15:09)
[2024-06-07 00:17] LABS: Hematocrit (blood only) 47.2 % (42.0-52.0); Hemoglobin 15.4 g/dl (14.0-18.0); Mean Corpuscular Hemoglobin 31.1 pg (25.0-34.0); Mean Corpuscular Hgb Conc 32.6 g/dL (32.0-36.0); Mean Corpuscular Volume 95.4 fL (80.0-100.0); Mean Platelet Volume 10.5 fL (9.4-12.4); Platelet Count 217 K/uL (130-400); RDW Coefficient of Variation 13.2 % (11.5-14.5); RDW Standard Deviation 45.9 fL (36.4-46.3); Red Blood Count 4.95 M/uL (4.70-6.10); White Blood Count 9.28 K/ul (4.8-10.8)
[2024-06-07 00:29] LABS: Anion Gap 6 (3-11); Blood Urea Nitrogen 28 mg/dl (6-23); Calcium 10.1 mg/dl (8.6-10.3); Carbon Dioxide 30 mmol/L (21-32); Chloride 107 mmol/L (98-107); Glucose 85 mg/dl (70-99(Fasting)); Sodium 143 mmol/L (136-145)
[2024-06-07 00:41] LABS: Basophils # (auto) 0.02 K/uL (0.00-0.20); Basophils % (auto) 0.2 %; Echinocytes 1+; Eosinophils # (auto) 0.08 K/uL (0.00-0.50); Eosinophils % (auto) 0.9 %; Immature Granulocytes # (auto) 0.06 K/uL (0.01-0.20); Immature Granulocytes % (auto) 0.6 %; Lymphocytes # (auto) 0.68 K/uL (1.20-3.40); Lymphocytes % (auto) 7.3 %; Monocytes # (auto) 0.08 K/uL (0.11-0.59); Monocytes % (auto) 0.9 %; Neutrophils # (auto) 8.36 K/uL (1.40-6.50); Neutrophils % (auto) 90.1 %; Polychromasia 1+
[2024-06-07] MEDS: SODIUM CHLORIDE 0.9% 1,000 ML IV SCH ×2 (01:00→04:42)
[2024-06-07 01:07] LABS: Adenovirus PCR Not Detected (NotDetected); Bordetella parapertussis PCR Not Detected (NotDetected); Bordetella pertussis PCR Not Detected (NotDetected); Chlamydia pneumoniae PCR Not Detected (NotDetected); Coronavirus 229E PCR Not Detected (NotDetected); Coronavirus CoV-2 (COVID19)PCR Not Detected (NotDetected); Coronavirus HKU1 PCR Not Detected (NotDetected); Coronavirus NL63 PCR Not Detected (NotDetected); Coronavirus OC43PCR Not Detected (NotDetected); Human Metapneumovirus PCR Not Detected (NotDetected); Influenza A PCR Not Detected (NotDetected); Influenza B PCR Not Detected (NotDetected); Mycoplasma pneumoniae PCR Not Detected (NotDetected); Parainfluenza Virus 1 PCR Not Detected (NotDetected); Parainfluenza Virus 2 PCR Not Detected (NotDetected); Parainfluenza Virus 3 PCR Not Detected (NotDetected); Parainfluenza Virus 4 PCR Not Detected (NotDetected); Respiratory Syncytial VirusPCR Not Detected (NotDetected); Rhinovirus/Enterovirus PCR Not Detected (NotDetected)
--- NOTE | 2024-06-07 01:34 | XRay Report ---
EXAM: XR chest 1V portable CLINICAL HISTORY: Fever, chills, AMS TECHNIQUE: An X-ray image of the chest is obtained in AP projection. COMPARISON: 09/05/2023, CR Chest FINDINGS: Pulmonary Parenchyma: Inadequate inspiration seen Patient is rotated Chest leads are seen Questionable opacification seen in left lung lower zone No evidence of collapse. No pulmonary nodules are identified. Mild blunting of left costophrenic angle seen Right costophrenic angle appears normal Heart and Mediastinum: Heart size and shape are normal. No mediastinal widening or masses. Prominent both rajesh are identified Bony Thorax: Degenerative changes seen in visualized spine with osteophytes Soft Tissues: Soft tissues overlying the chest wall are unremarkable. IMPRESSION: Mild blunting of left costophrenic angle, likely due to pleural effusion/thickening. No significant change Questionable opacification in left lung lower zone, this may be due to overlying soft tissue shadow, however possibility of evolving infection cannot be excluded. Clinical correlation and follow-up is advised. This was not well seen in prior examination Prominent both rajesh likely due to vascular congestion/lymph nodes No other significant interval changes seen Electronically signed by Lucy Stanley 06-07-2024 01:33 AM
[2024-06-07 01:43] LABS: Appearance Urine Clear (Clear); Bacteria Urine Automated 4+ (None Seen); Bilirubin Urine Negative (Negative); Blood Urine 1+ (Negative); Cast Urine Automated >20 /lpf (0-2); Color Urine Yellow; Glucose Urine UA Negative (Negative); Ketones Urine Negative (Negative); Leukocyte Esterase Urine 3+ (Negative); Nitrite Urine Negative (Negative); Protein Urine 1+ (Negative); RBC Urine Automated >20 /hpf (0-2); Specific Gravity Urine 1.014 (1.000-1.030); Urobilinogen Urine Negative (Negative); WBC Urine Automated >50 /hpf (0-5)
[2024-06-07] MEDS: cefTRIAXone SODIUM 2,000 MG/50 ML BAG IV STA (01:43)
[2024-06-07 01:46] LABS: Alanine Aminotransferase 8 U/L (7-52); Albumin Level 4.2 gm/dl (3.4-5.0); Alkaline Phosphatase 143 U/L (34-104); Aspartate Aminotransferase 22 U/L (13-39); Bilirubin Direct 0.1 mg/dl (0-0.2); Total Protein 6.9 gm/dl (6.0-8.3)
[2024-06-07] MEDS: DOXYCYCLINE HYCLATE 100 MG in DEXTROSE 5% MINI-B 100 ML IV STA (02:38)
--- NOTE | 2024-06-07 03:10 | History & Physical Report ---
Date of Service June 07, 2024 Assessment & Plan (1) Sepsis: (2) Aortic stenosis: (3) Mitral regurgitation: (4) Renal mass: (5) Irregular heart rhythm: (6) Ambulatory dysfunction: (7) Parkinson disease: (8) Recurrent UTI (urinary tract infection): (9) Hypertension: (10) Altered mental status: (11) BPH w urinary obs/LUTS: (12) 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 stage III: (13) Dementia: Plan 88 yo male PMHx BPH w/LUTS, renal mass, CKD-III, Parkinson's disease, HTN, HLD, "irregular heart rhythm", MR, , Dementia, ambulatory dysfunction admitted after becoming hypotensive, tachycardic and febrile in the ED. #Sepsis/AMS Suspect urinary source, less likely pulmonary Has had multiple UTIs in the last year with significant resistance patterns Escalate abx to Dapto/Zosyn Sepsis bolus met, continue IVF at 125cc/hr Follow BCx and UCx Tylenol PRN fever Follow repeat lactate after fluid resuscitation Check procal Daily BMP, CBC #BPH w/LUTS/Renal Mass/CKD-III New thurston placed today, maintain Flush as needed Renal mass being followed by urology Cr essentially at baseline Continue finasteride #Irregular heat rhythm/afib/MR/ Does not appear to be on AC Continue metoprolol, ASA Monitor volume status #Ambulatory Dysfunction PT/OT eval and treat Uses assistive devices at baseline #Parkinson's Disease Continue Sinemet #Dementia Employ Delirium Prevention Measures including: Raising blinds during the day, closing at night Frequent re-orientation Contact with family/friends Explaining procedures/nursing care measures prior to physical contact Correct any hearing and visual impairments FENGI: heart healthy Code status: DNR/DNI - reviewed POLST form provided by detention DVT prophylaxis: Lovenox Isolation: none Disposition: PCU History of Present Illness Primary Care Provider: [facility] 88 yo male PMHx BPH w/LUTS, renal mass, CKD-III, Parkinson's disease, HTN, HLD, "irregular heart rhythm", MR, , Dementia, ambulatory dysfunction admitted after becoming hypotensive, tachycardic and febrile in the ED. He initially presented to the emergency department from [facility] due to a non-draining thurston. He was retaining 600-800cc on bladder scan. There was difficulty removing the thurston, balloon was unable to be deflated. Urology saw the patient and removed the thurston under force with balloon inflated and there was trauma to the urethra. He was being prepared for discharge when he became febrile, tachycardic and was having rigors. Temp was checked and found to be 39C. Pt not interactive, somnolent but arousable. HPI/ROS limited due to this. VSS at time of admission. ED Course: Thurston replaced Labs reveal: lactate 2.6, UA appears infected but this is chronic, K 5.0 CXR: ?infiltrate in LLL BCx and UCx sent Given 1g IV Tylenol, dose of CTX, total of 2.5L NSS which meets sepsis bolus Allergies Allergy/AdvReac Type Severity Reaction Status Date / Time No Known Allergies Allergy Verified 11/07/23 12:27 Home Medications Medication Instructions Recorded Confirmed Type carbidopa 25 mg-levodopa 100 mg 1 tab PO QID 12/04/21 11/07/23 History tablet (Sinemet) cholecalciferol (vitamin D3) 50 50 mcg PO DAILY 12/04/21 11/07/23 History mcg (2,000 unit) capsule finasteride 5 mg tablet (Proscar) 5 mg PO QAM 12/04/21 11/07/23 History pantoprazole 40 mg tablet,delayed 40 mg PO 3XWK 12/04/21 11/07/23 History release cyanocobalamin (vitamin B-12) 1,000 mcg PO DAILY 01/21/22 11/07/23 History 1,000 mcg tablet (Vitamin B-12) bisacodyl 10 mg rectal suppository 10 mg KS Q48H PRN Constipation 10/06/22 11/07/23 History (Dulcolax (bisacodyl)) magnesium hydroxide 400 mg/5 mL 30 ml PO Q48H PRN Constipation 10/06/22 11/07/23 History oral suspension (Milk of Magnesia) sodium phosphates 19 gram-7 118 ml KS Q72H PRN Constipation 10/06/22 11/07/23 History gram/118 mL enema (Fleet Enema) metoprolol tartrate 25 mg tablet 12.5 mg (1/2 x 25 mg) PO BID #30 10/10/22 11/07/23 Rx tabs aspirin 81 mg tablet,delayed 81 mg PO DAILY 03/30/23 11/07/23 History release acetaminophen 650 mg rectal 650 mg KS Q4H PRN FEVER <99.5 09/05/23 11/07/23 History suppository carboxymethylcellulose sodium 0.5 1 drp OPB BID 09/05/23 11/07/23 History % eye drops (Refresh Tears) carboxymethylcellulose sodium 0.5 1 drp OPB BID PRN Dry Eyes 09/05/23 11/07/23 History % eye drops (Refresh Tears) clotrimazole 1 % topical cream 1 applic topical BID PRN Rash 09/05/23 11/07/23 History (Lotrimin AF (clotrimazole)) hydrocortisone 1 % topical cream 1 applic topical BID PRN LEFT 09/05/23 11/07/23 History EAR/NOSE/OUTER EYE RASH [id number] 3.3 4 drp OTL DAILY PRN 09/05/23 11/07/23 History mg-3 mg-10 mg-0.5 mg/mL ear INFLAMMATION/ITCHING drops,susp selenium sulfide 1 % shampoo 1 applic topical 2XWK 09/05/23 11/07/23 History (Selsun Blue) triamcinolone acetonide 0.1 % 1 applic topical BID PRN Rash 09/05/23 11/07/23 History topical cream ciprofloxacin HCl 500 mg tablet 500 mg PO BID #4 tabs 09/11/23 11/07/23 Rx metronidazole 500 mg tablet 500 mg PO BID #4 tabs 09/11/23 11/07/23 Rx polyethylene glycol 3350 17 17 g PO DAILY #0 grams 09/11/23 11/07/23 Rx gram/dose oral powder (Miralax) sennosides 8.6 mg tablet (senna) 17.2 mg (2 x 8.6 mg) PO DAILY #0 09/11/23 11/07/23 Rx tabs Past Med/Surg History Problem List (Updated 06/07/24 @ 04:08 by Porter Fong DO) Sepsis (Acute) Obstructed Thurston catheter (Acute) Encounter for Thurston catheter replacement (Acute) Chest pain (Acute) Elevated troponin Severe sepsis PVC (premature ventricular contraction) Aortic stenosis Mitral regurgitation Generalized weakness Renal mass Acute UTI (urinary tract infection) (Acute) Conjunctivitis Superficial thrombophlebitis Irregular heart rhythm follows w/ Dr. Gayle Ambulatory dysfunction Weakness (Acute) COVID-19 (Acute) Parkinson disease Recurrent UTI (urinary tract infection) (Acute) Encounter for pre-operative examination Hypertension (Acute) Altered mental status (Acute) Pneumonia (Acute) Weakness on right side of face Laryngopharyngeal reflux (LPR) Acquired deviated nasal septum Chronic rhinitis Retention of urine, unspecified BPH w urinary obs/LUTS History of SCC (squamous cell carcinoma) of skin History of basal cell carcinoma Medical History Dementia Lab test negative for COVID-19 virus Acute dehydration Weakness Resides in [facility] facility Dysphonia Dysarthria and anarthria 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 stage III Dysphagia Other abnormalities of gait and mobility Weakness Muscle spasm of back Hyperlipidemia Diverticulosis of large intestine without perforation or abscess without bleeding History of blood clots Poor historian Hearing deficit Hypertension Surgical History History of colonoscopy Status post Mohs surgery History of knee surgery History of eye surgery Family History Other Adopted Social History Smoking Status: Unknown if ever smoked Second Hand Exposure: No; Do You Dip or Chew Tobacco: No; Preferred Language: Setswana Communication Ability: Impaired 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 Hand Required: No Beliefs That Will Affect Care: None marital status: Current Living Situation: Long-Term Current Living Situation Comment: [employer] current occupational status: retired Feels Safe at Home: Yes Assistive Devices: Walker and Wheelchair Review of Systems Review of Systems: reviewed, per HPI Physical Exam Physical Exam: Constitutional: ill-appearing, arousable but not interactive HEENT: NCAT, no conjunctival injection CV: irregular rhythm, +systolic murmur, extremities well-perfused, no LE edema Resp: CTABL, no wheezes/rales/rhonchi appreciated, no increased work of breathing GI: nondistended MSK: no gross deformities appreciated Skin: warm, dry, no rash appreciated Neuro: alert, oriented, no focal neurologic deficit appreciated Results & Data Results & Data Vital Signs (Past 12 Hours) Vital Signs Temp Pulse Pulse Resp BP BP Pulse Ox 06/07/24 03:08 36.7 C 83 16 114/70 93 06/07/24 02:30 86 18 109/76 93 06/07/24 01:48 86 18 132/64 97 06/07/24 01:03 80 06/07/24 01:00 39 C H 81 20 85/50 L 97 06/07/24 00:05 38.5 C H 101 H 30 H 148/102 H 95 06/06/24 21:14 36.9 C 69 20 155/88 H 96 06/06/24 21:10 71 O2 Del Method 06/07/24 03:08 Room Air 06/07/24 02:30 Room Air 06/07/24 01:48 Room Air 06/07/24 01:03 06/07/24 01:00 Room Air 06/07/24 00:05 Room Air 06/06/24 21:14 Room Air 06/06/24 21:10 Supervising Physician Co-Signing Physician Notes Attending addendum: I have physically seen this patient, have supervised the medical residents activities, and agree with the H&P unless as otherwise noted. Assessment and Plan: The patient is a 88-year-old male with past medical history including BPH with LUTS, renal mass, CKD stage III, Parkinson's disease, hypertension, hyperlipidemia, PVCs, irregular heart rhythm, MR, AAS, dementia, and ambulatory dysfunction. [facility] after complications related to replacement of Thurston catheter. Patient reportedly had Thurston catheter in removed at urology office, hide in the interim been replaced at [facility], and this evening required neurology Dr. Jin for removal and replacement due to complication. #Sepsis due to urinary tract infection associated with complication of Thurston catheter Patient is somewhat lethargic, and may not be able to take oral medications e anna on in the admission Follow urine culture sensitivity Multiple previous urine tract infections: 04/09/2023 pansensitive Klebsiella. 05/20/2023 MRSA. 08/28/2023 pansensitive E. coli. Doxycycline was discontinued in ED before being given, as well as ceftriaxone Placed on daptomycin IV and Zosyn IV for antibiotic coverage, which can be narrowed pending on culture results Status post usual normal saline septic bolus in the ED Continue NSS 125 mL/h x 1 additional liter Acetaminophen 1 g IV every 8 hours as needed for mild pain or fever Follow serial CBC with differential and basic metabolic panel #BPH with LUTS/renal mass/CKD stage III- Thurston catheter placed by urology and follows with them in the outpatient setting Follow serial CBC with differential as noted Continue finasteride when taking oral medications #Atrial fibrillation/hypertension/aortic stenosis- The patient will be admitted to telemetry for serial cardiac enzymes, serial EKG's, cardiac rhythm monitoring Patient is somewhat lethargic, likely secondary to sepsis associated with Thurston manipulation If able to take oral medications will take metoprolol to tartrate 12.5 mg p.o. twice daily and aspirin 81 mg daily Heart rate and blood pressure rhythm was controlled enough that would not likely need IV medications at this point Chronic medical conditions: Parkinson's disease-resume carbidopa levodopa when able to unable to take oral medications advanced GERD: On Protonix, changed to IV Resident Activity Tracking Resident Involvement: Resident Care Provided Care Provided: Adult Hospital Medicine (1) Sepsis Acute renal failure type: unspecified Sepsis acute organ dysfunction status: with acute organ dysfunction Sepsis type: sepsis due to unspecified organism Severe sepsis acute organ dysfunction type: acute renal failure (10) Altered mental status Altered mental status type: unspecified Qualified Code(s): R41.82 - Altered mental status, unspecified
[2024-06-07] MEDS ORDERED: ACETAMINOPHEN 500 MG TAB PO PRN ×2 (03:39→15:50)
[2024-06-07] MEDS ORDERED: ONDANSETRON INJ 2 MG/ML 2 ML VIAL IV PRN (03:39)
[2024-06-07] MEDS ORDERED: ALUMINUM/MAGNESIUM SUSP 30 ML UDC PO PRN (03:39)
[2024-06-07] MEDS ORDERED: POLYETHYLENE (MIRALAX) 17 GM PACK PO PRN (03:39)
[2024-06-07] MEDS ORDERED: MAGNESIUM HYDROXIDE SUSP 30 ML UDC PO PRN (03:39)
[2024-06-07] MEDS: Patient's HEIGHT &/or WEIGHT Needed STA (03:59)
[2024-06-07] MEDS: SODIUM CHLORIDE 0.9% 500 ML IV ONE (04:06)
[2024-06-07] MEDS: DAPTOmycin 600 MG in SYRINGE 0 ML IV SCH (04:16)
[2024-06-07] MEDS: PIPERACILLIN/TAZOBACTAM 4.5 GM/100 ML BAG IV STA (04:19)
--- NOTE | 2024-06-07 05:28 | Billing Data ---
Date of Service June 07, 2024 Coding Level of Care Code 15675 INT INP/OBS CARE
[2024-06-07 07:20] LABS: BUN Creatinine Ratio 19.3 (10-20); Calcium 9.1 mg/dl (8.6-10.3); Creatinine Clr Calc Pharmacy 44.3 ml/min; Potassium 4.7 mmol/L (3.5-5.1)
[2024-06-07 07:38] LABS: Hematocrit (blood only) 41.4 % (42.0-52.0); Hemoglobin 13.3 g/dl (14.0-18.0); Mean Corpuscular Hemoglobin 30.8 pg (25.0-34.0); Mean Corpuscular Hgb Conc 32.1 g/dL (32.0-36.0); Mean Corpuscular Volume 95.8 fL (80.0-100.0); Mean Platelet Volume 10.8 fL (9.4-12.4); Platelet Count 188 K/uL (130-400); RDW Coefficient of Variation 13.1 % (11.5-14.5); RDW Standard Deviation 45.9 fL (36.4-46.3); Red Blood Count 4.32 M/uL (4.70-6.10); White Blood Count 15.82 K/ul (4.8-10.8)
[2024-06-07 08:02] LABS: Basophils # (auto) 0.04 K/uL (0.00-0.20); Basophils % (auto) 0.3 %; Eosinophils # (auto) 0.03 K/uL (0.00-0.50); Eosinophils % (auto) 0.2 %; Immature Granulocytes % (auto) 0.6 %; Lymphocytes # (auto) 0.47 K/uL (1.20-3.40); Monocytes # (auto) 0.68 K/uL (0.11-0.59); Monocytes % (auto) 4.3 %; Neutrophils % (auto) 91.6 %
--- NOTE | 2024-06-07 08:31 | Hospitalist Progress Note ---
Date of Service June 07, 2024 Assessment & Plan (1) Sepsis: (2) Aortic stenosis: (3) Mitral regurgitation: (4) Renal mass: (5) Irregular heart rhythm: (6) Ambulatory dysfunction: (7) Parkinson disease: (8) Recurrent UTI (urinary tract infection): (9) Hypertension: (10) Altered mental status: (11) BPH w urinary obs/LUTS: (12) 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 stage III: (13) Dementia: Plan 88 yo male PMHx BPH w/LUTS, renal mass, CKD-III, Parkinson's disease, HTN, HLD, "irregular heart rhythm", MR, , Dementia, ambulatory dysfunction admitted after becoming hypotensive, tachycardic and febrile in the ED. Pt was initially brought in for urinary retention. Pt had about 800 cc of urine, but the thurston was not draining. Urology eventually removed the thurston under pressure. Plan was to discharge patient back to facility but he became febrile and was having chills. He was admitted to the hospital for workup and management of sepsis. #Sepsis/AMS - suspect urinary source given proximity of thurston manipulation and temperature - CXR shows mild blunting of left costophrenic angle, likely due to pleural effusion / thickening, ?opacification in left lower lung zone (overlying soft tissue shadow vs infection) - UA: >50 wbc, >20 RBC (in the setting of forced thurston removal), 6-10 epithelial cells, 4+ bacteria - Has had multiple UTIs in the last year with significant resistance patterns - currently on Dapto/Zosyn, cont at this time - cont IVF - BCx / UCx pending - PO / IV tylenol prn - cont IVF - lactate: 2.6 -> 1.3 - procal elevated to 3 #BPH w/LUTS/Renal Mass/CKD-III - 3-way thurston in for possible CBI given traumatic thurston removal, reddish urine but no clots - Flush as needed - Renal mass being followed by urology - Cr essentially at baseline - Continue finasteride when tolerating PO #Irregular heat rhythm/afib/MR/ - Does not appear to be on AC - Continue metoprolol, ASA once pt is able to take PO - Monitor volume status #Ambulatory Dysfunction - PT/OT eval and treat - Uses assistive devices at baseline - fall precautions #Parkinson's Disease with dementia - cont Sinemet when pt is able to tolerate PO - keep NPO now given AMS - H[employer]URE [employer]ER evaluation pending - aspiration precautions - delirium precautions (Raising blinds during the day, closing at night | Frequent re-orientation | Contact with family/friends | Explaining procedures/nursing care measures prior to physical contact | Correct any hearing and visual impairments_ Code status: DNR/DNI - reviewed POLST form provided by senior living DVT prophylaxis: SCDs, if no hematuria tomorrow, hep subq to be initiated Isolation: none Disposition: PCU 06/07: pt's and daughter / her at bedside Admission and Anticipated Discharge Date Admission Date: June 07, 2024 Subjective Admitted overnight Currently not offering any complaints due to mental status Review of Systems Review of Systems: Unable to review comprehensive ROS due to mentation Physical Exam Physical Exam: Gen: no acute distress, pt is lying in bed with his eyes closed HEENT: NC/AT, +rubor, MMM Lungs: difficulty to auscultate due to pt participation however grossly CTAB CVS: II/ YAW at 2nd ICS Abd: nl bowel sounds, soft, nontender : +thurston, reddish urine Ext: no edema Neuro: pt not talking at this time, though answers in grunts Results & Data Results & Data Vital Signs (Past 12 Hours) Vital Signs Temp Pulse Pulse Resp BP BP Pulse Ox 06/07/24 07:34 73 06/07/24 06:42 77 16 114/77 96 06/07/24 06:23 36.8 C 79 16 118/86 96 06/07/24 05:18 06/07/24 05:18 81 24 115/76 97 06/07/24 04:08 36.8 C 82 22 139/103 H 94 06/07/24 03:08 36.7 C 83 16 114/70 93 06/07/24 02:30 86 18 109/76 93 06/07/24 01:48 86 18 132/64 97 06/07/24 01:03 80 06/07/24 01:00 39 C H 81 20 85/50 L 97 06/07/24 00:05 38.5 C H 101 H 30 H 148/102 H 95 06/06/24 21:14 36.9 C 69 20 155/88 H 96 06/06/24 21:10 71 Pulse Ox O2 Del Method O2 Del Method 06/07/24 07:34 06/07/24 06:42 Room Air 06/07/24 06:23 Room Air 06/07/24 05:18 97 Nasal Cannula 06/07/24 05:18 Room Air 06/07/24 04:08 Room Air 06/07/24 03:08 Room Air 06/07/24 02:30 Room Air 06/07/24 01:48 Room Air 06/07/24 01:03 06/07/24 01:00 Room Air 06/07/24 00:05 Room Air 06/06/24 21:14 Room Air 06/06/24 21:10 PG Care Time/CCT Total # of Minutes Spent Total Time Spent with Patient: Total time spent is greater than 50% in coordination of care (as documented) at patient's floor/unit and/or counseling patient: Coding Level of Care Code 63496 SUB INP/OBS CARE 3/50MIN Diagnoses Sepsis A41.9 Acute renal failure type: unspecified Sepsis acute organ dysfunction status: with acute organ dysfunction Sepsis type: sepsis due to unspecified organism Severe sepsis acute organ dysfunction type: acute renal failure Aortic stenosis I35.0 Mitral regurgitation I34.0 Renal mass N28.89 Irregular heart rhythm I49.9 Ambulatory dysfunction R26.2 Parkinson disease G20 Recurrent UTI (urinary tract infection) N39.0 Hypertension I10 Altered mental status R41.82 Altered mental status type: unspecified BPH w urinary obs/LUTS N40.1; N13.8 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 stage III I12.9; N18.30 Dementia F03.90 (1) Sepsis Acute renal failure type: unspecified Sepsis acute organ dysfunction status: with acute organ dysfunction Sepsis type: sepsis due to unspecified organism Severe sepsis acute organ dysfunction type: acute renal failure (10) Altered mental status Altered mental status type: unspecified Qualified Code(s): R41.82 - Altered mental status, unspecified
[2024-06-07] MEDS: PANTOprazole 40 MG/10 ML SYR IV SCH (08:50)
[2024-06-07] MEDS: PIPERACILLIN/TAZOBACTAM 4.5 GM/100 ML BAG IV SCH (09:43)
[2024-06-07] MEDS ORDERED: ACETAMINOPHEN 1,000 MG/100 ML VIAL IV PRN (15:49)
[2024-06-07 16:21] LABS: A calco-baum cmplx NotReported Not Detected (NotDetected); Bact fragilis Not Reported Not Detected (NotDetected); Blood Culture Id Panel See PCR Comment (NotDetected); C auris Not Reported Not Detected (NotDetected); CTX-M Resistant Gene Not Detected (NotDetected); Calbicans Not Reported Not Detected (NotDetected); Candida glabrata Not Reported Not Detected (NotDetected); Candida krusei Not Reported Not Detected (NotDetected); Cneoformans/gatti Not Reported Not Detected (NotDetected); Cparapsilosis Not Reported Not Detected (NotDetected); E cloacae compx Not Reported Not Detected (NotDetected); Efaecalis Not Reported Not Detected (NotDetected); Efaecium Not Reported Not Detected (NotDetected); Enterobacterales DETECTED (NotDetected); Enterobacterales Not Reported DETECTED (NotDetected); Escherichia coli Not Reported Not Detected (NotDetected); H influenzae Not Reported Not Detected (NotDetected); IMP Resistant Gene Not Detected (NotDetected); K aerogenes Not Reported Not Detected (NotDetected); KPC Resistant Gene Not Detected (NotDetected); Koxytoca Not Reported Not Detected (NotDetected); Kpneumoniae grp Not Reported Not Detected (NotDetected); Lmonocyt Not Reported Not Detected (NotDetected); N meningitidis Not Reported Not Detected (NotDetected); NDM Resistant Gene Not Detected (NotDetected); OXA 48 Like Resistant Gene Not Detected (NotDetected); P aeruginosa Not Reported Not Detected (NotDetected); Proteus spp Not Reported DETECTED (NotDetected); Salmonella spp Not Reported Not Detected (NotDetected); Staph lugdunensis Not Reported Not Detected (NotDetected); Staph spp. Not Reported DETECTED (NotDetected); Staphaureus Not Reported DETECTED (NotDetected); Staphepi Not Reported Not Detected (NotDetected); Staphylococcus spp. DETECTED (NotDetected); Stenmaltophilia Not Reported Not Detected (NotDetected); Strep agal(GrpB) Not Reported Not Detected (NotDetected); Strep pneum Not Reported Not Detected (NotDetected); Strep pyog (GrpA) Not Reported Not Detected (NotDetected); Strep spp Not Reported Not Detected (NotDetected); VIM Resistant Gene Not Detected (NotDetected)
[2024-06-07 16:45] LABS: Proteus species DETECTED (NotDetected); mecAC+MREJ Resistant Gene MRSA DETECTED (NotDetected)
[2024-06-08] MEDS: SODIUM CHLORIDE 0.9% 1,000 ML IV SCH (05:16)
[2024-06-08 07:18] LABS: BUN Creatinine Ratio 16.2 (10-20); Calcium 8.8 mg/dl (8.6-10.3); Creatinine Clr Calc Pharmacy 47.5 ml/min; Magnesium 1.8 mg/dl (1.7-2.4); Phosphorus 2.6 mg/dl (2.5-4.9); Potassium 4.2 mmol/L (3.5-5.1)
[2024-06-08 07:22] LABS: Basophils # (auto) 0.02 K/uL (0.00-0.20); Basophils % (auto) 0.2 %; Eosinophils # (auto) 0.07 K/uL (0.00-0.50); Eosinophils % (auto) 0.8 %; Hematocrit (blood only) 40.7 % (42.0-52.0); Hemoglobin 13.3 g/dl (14.0-18.0); Immature Granulocytes # (auto) 0.07 K/uL (0.01-0.20); Immature Granulocytes % (auto) 0.8 %; Lymphocytes # (auto) 0.51 K/uL (1.20-3.40); Lymphocytes % (auto) 5.8 %; Mean Corpuscular Hemoglobin 31.2 pg (25.0-34.0); Mean Corpuscular Hgb Conc 32.7 g/dL (32.0-36.0); Mean Corpuscular Volume 95.5 fL (80.0-100.0); Mean Platelet Volume 10.7 fL (9.4-12.4); Monocytes # (auto) 0.73 K/uL (0.11-0.59); Monocytes % (auto) 8.3 %; Neutrophils # (auto) 7.39 K/uL (1.40-6.50); Neutrophils % (auto) 84.1 %; Platelet Count 159 K/uL (130-400); RDW Coefficient of Variation 13.4 % (11.5-14.5); RDW Standard Deviation 46.9 fL (36.4-46.3); Red Blood Count 4.26 M/uL (4.70-6.10); White Blood Count 8.79 K/ul (4.8-10.8)
[2024-06-08] MEDS: cefTRIAXone SODIUM 2,000 MG/50 ML BAG IV SCH (18:36)
[2024-06-08] MEDS: D5W AND NSS 1,000 ML IV ONE (19:15)
[2024-06-08] MEDS: DEXTROSE 50% 50 ML SYRINGE IV PRN (19:18)
--- NOTE | 2024-06-08 20:58 | Hospitalist Progress Note ---
Date of Service June 08, 2024 Assessment & Plan (1) Sepsis: (2) Aortic stenosis: (3) Mitral regurgitation: (4) Renal mass: (5) Irregular heart rhythm: (6) Ambulatory dysfunction: (7) Parkinson disease: (8) Recurrent UTI (urinary tract infection): (9) Hypertension: (10) Altered mental status: (11) BPH w urinary obs/LUTS: (12) 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 stage III: (13) Dementia: Plan 88 years old male with PMH of DNR/DNI @ 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 Patient had approximately 800 cc of retained urine with thurston not draining any urine. Subsequently, Urology Service of Dr. Keshawn Jin was able to remove the pre- existing, indwelling thurston under pressure (06/06/2024, 10:15pm) in [facility] ER. Initially, the plan was to discharge patient back to [facility] on 06/07/2024, but the patient became febrile with chills. Patient was subsequently admitted to the inpatient hospitalist service @ [facility] on 06/07/2024 with the following diagnoses: 1. Sepsis due to catheter-associated UTI with hematogenous dissemination (e.g., bacteremia). 2. Acute toxic metabolic encephalopathy, due to #1 above. 3. Acute hypoglycemia with admission glucose 82 mg/dL (06/07/2024, 8:31pm), due to #1 above. #Sepsis due to catheter-associated UTI/acute toxic metabolic encephalopathy - suspect urinary source given proximity of thurston manipulation and temperature - CXR shows mild blunting of left costophrenic angle, likely due to pleural effusion / thickening, ?opacification in left lower lung zone (overlying soft tissue shadow vs infection) - UA: >50 wbc, >20 RBC (in the setting of forced thurston removal), 6-10 epithelial cells, 4+ bacteria - Has had multiple UTIs in the last year with significant resistance patterns - currently on Dapto/Zosyn, cont at this time as patient's WBC has declined to normal from 15.82 (06/07/2024, 6:41am) to 8.79 (06/08/2024, 6:14am); check repeat WBC w/diff in the 06/09/2024 am. - cont IVF - BCx / UCx pending - PO / IV tylenol prn - cont IVF - lactate has subsequently declined to normal from 2.6 mmol/L (06/07/2024, 1:34am) to 1.3 mmol/L (06/07/2024, 4:26am)(06/08/2024, 9:32am); check repeat lactic acid in the 06/09/2024 am. - procalcitonin is increasing from 3.03 ng/mL (06/07/2024, 6:41am) to 3.28 ng/mL (06/08/2024, 6:14am); check repeat procalcitonin in the 06/09/2024 am. #Acute hypoglycemia with admission glucose 82 mg/dL (06/07/2024, 8:31pm), due to #1 above. Despite multiple attempts to treat patient's acute hypoglycemia with apple juice, patient remains persistently hypoglycemic: cf., glucose 71 mg/dL (06/08/2024, 12:10pm). cf., glucose 79 mg/dL (06/08/2024, 2:02pm). cf., glucose 68 mg/dL (06/08/2024, 6:00pm). cf., glucose 67 mg/dL (06/08/2024, 6:01pm). cf., glucose 52 mg/dL (06/08/2024, 7:03pm). cf., glucose 62 mg/dL (06/08/2024, 7:04pm). Consequently, I started patient on 1 liter of 0.9% D5-0.9% NS @ 76 mL/hr (06/08/2024, 7:15pm), based on a delivery rate of 1 mL of D5-0.9% NS per kg of body weight per hour, and a body weight of 76.2 kg. Subsequently, patient's glucose levels have started to increase: cf., glucose 76 mg/dL (06/08/2024, 7:34pm). cf., glucose 109 mg/dL (06/08/2024, 8:46pm). Subsequently, patient continues to undergo POC glucose q6h while in [facility]. #BPH w/LUTS/Renal Mass/CKD-III - 3-way thurston in for possible CBI given traumatic thurston removal, reddish urine but no clots - Flush as needed - Renal mass being followed by urology - Cr essentially at baseline - Continue finasteride when tolerating PO #Irregular heat rhythm/afib/MR/ - Does not appear to be on AC - Continue metoprolol, ASA once pt is able to take PO - Monitor volume status #Ambulatory Dysfunction - PT/OT eval and treat - Uses assistive devices at baseline - fall precautions #Parkinson's Disease with dementia - cont Sinemet when pt is able to tolerate PO - keep NPO now given AMS - 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 - aspiration precautions - delirium precautions (Raising blinds during the day, closing at night | Frequent re-orientation | Contact with family/friends | Explaining procedures/nursing care measures prior to physical contact | Correct any hearing and visual impairments_ Code status: DNR/DNI - reviewed POLST form provided by [facility] DVT prophylaxis: SCDs, if no hematuria tomorrow, hep subq to be initiated Isolation: none Disposition: PCU 06/07: pt's and daughter / her at bedside Admission and Anticipated Discharge Date Admission Date: June 07, 2024 Subjective "I am ok." Review of Systems Constitutional: Negative for antecedent/coincident fevers, chills, diaphoresis, cough, wheeze, sore throat, hemoptysis, chest pains, palpitations, pleurisy, nausea, vomiting, diarrhea, abdominal pain, pelvic pain, hematemesis, hematochezia, melena, hematuria, dysuria, frequency, urgency, headaches, dizziness, lightheadedness, visual changes, hearing changes, weakness, falls, syncope, trauma, travel history, sick contacts, or food/drug ingestions novel or new. All other review of systems are reported as negative by the patient on 06/08/2024. Physical Exam Constitutional: General: Comfortable, coherent, cooperative. Wide awake and alert. Not confused, lethargic, or obtunded. Patient speaks in complete, fluent, and a rticulate sentences without pause, interruption, cough, or wheeze. HEENT: Normocephalic, atraumatic. Pupils equally round and reactive to light. Extra-ocular muscles intact. No nystagmus, gaze paresis, anisocoria, miosis, mydriasis, hyphema, scleral injection, conjunctivitis, or pterygium. No rhinorrhea or otorrhea. No pharyngeal discharge or erythema. Neck: Supple, no stridor, bruit, goiter, hepatojugular reflux. Jugular venous pressure is estimated to be 8 cm above the sternal angle of Joselo, which is estimated to be 5 cm above the level of the right atrium. Lymph: No anterior/posterior cervical, supraclavicular/infraclavicular, axillary, epitrochlear, or inguinal adenopathy. Chest: Symmetric rise and fall with respirations. Lungs: Clear to auscultation and percussion. No audible expiratory wheeze, egophony, pectoriloquy, increase in tactile fremitus, or flatness/dullness to percussion at the bases. Heart: RRR, S1 and S2 noted. No S3 or S4 summation gallop noted. No tripartite friction rub. Grade II/ early systolic murmur @ LLSB without radiation to the carotids, axilla, or back, and which remains invariant in regards to the respiratory cycle. Abdomen: Soft, generalized tenderness, non-distended. No rebound, guarding, Dawn's sign, or organomegaly. Bowel sounds sounds auscultated in all 4 quadrants. Extremities: No clubbing, cyanosis, or edema. 2+ pedal pulses bilaterally. Skin: No decubitus ulcer, exanthem, or enanthem. Neurology: Alert and oriented to person, place, time, and situation. DTR+ and symmetric. 5/5 motor strength in all 4 extremities, both proximally and distally. No pronator drift. No facial droop. No tremors, tics, or myoclonus. Urology: + thurston with 500 cc of clear yellow urine. No urethral discharge. Psychiatry: No suicidal ideation. No homicidal ideation. Results & Data Results & Data Vital Signs (Past 12 Hours) Vital Signs Temp Pulse Pulse Resp BP Pulse Ox O2 Del Method 06/08/24 20:00 36.9 C 83 18 136/74 93 Room Air 06/08/24 16:15 36.9 C 89 18 155/91 H 97 Room Air 06/08/24 14:34 75 06/08/24 11:13 36.8 C 73 18 136/71 94 Room Air Laboratory Results 06/07/24 16:57 Aerobic Blood Culture - Preliminary Blood No growth in Aerobic bottle after 24 hours. Anaerobic Blood Culture - Preliminary No growth in Anaerobic bottle after 24 hours. 06/07/24 16:57 Aerobic Blood Culture - Preliminary Blood No growth in Aerobic bottle after 24 hours. Anaerobic Blood Culture - Preliminary No growth in Anaerobic bottle after 24 hours. 06/07/24 01:31 Aerobic Blood Culture - Preliminary Blood Staphylococcus aureus Anaerobic Blood Culture - Preliminary Staphylococcus aureus 06/06/24 23:54 Aerobic Blood Culture - Preliminary Blood Staphylococcus aureus Anaerobic Blood Culture - Preliminary Staphylococcus aureus Proteus vulagris group 06/06/24 23:54 Urine Culture - Final Urine,Clean Catch More than three types of organisms present, all high counts. Repeat collection recommended. No further identifications or sensitivities to follow. 06/08/24 06/08/24 06/08/24 19:34 19:04 19:03 WBC RBC Hgb Hct MCV MCH MCHC RDW Std Deviation RDW Coeff of Ramy Plt Count MPV Immature Gran % (Auto) Neut % (Auto) Lymph % (Auto) Nelson % (Auto) Eos % (Auto) Baso % (Auto) Neut # (Auto) Lymph # (Auto) Nelson # (Auto) Eos # (Auto) Baso # (Auto) Immature Gran # (Auto) Sodium Potassium Chloride Carbon Dioxide Anion Gap BUN Creatinine Est Cr Clr Drug Dosing eGFR BUN/Creatinine Ratio Glucose POC Glucose 76 62 L* 52 L* Lactate Calcium Phosphorus Magnesium Procalcitonin 06/08/24 06/08/24 06/08/24 18:01 18:00 14:02 WBC RBC Hgb Hct MCV MCH MCHC RDW Std Deviation RDW Coeff of Ramy Plt Count MPV Immature Gran % (Auto) Neut % (Auto) Lymph % (Auto) Nelson % (Auto) Eos % (Auto) Baso % (Auto) Neut # (Auto) Lymph # (Auto) Nelson # (Auto) Eos # (Auto) Baso # (Auto) Immature Gran # (Auto) Sodium Potassium Chloride Carbon Dioxide Anion Gap BUN Creatinine Est Cr Clr Drug Dosing eGFR BUN/Creatinine Ratio Glucose POC Glucose 67 L* 68 L* 79 Lactate Calcium Phosphorus Magnesium Procalcitonin 06/08/24 06/08/24 06/08/24 12:10 09:32 06:14 WBC 8.79 RBC 4.26 L Hgb 13.3 L Hct 40.7 L MCV 95.5 MCH 31.2 MCHC 32.7 RDW Std Deviation 46.9 H RDW Coeff of Ramy 13.4 Plt Count 159 MPV 10.7 Immature Gran % (Auto) 0.8 Neut % (Auto) 84.1 Lymph % (Auto) 5.8 Nelson % (Auto) 8.3 Eos % (Auto) 0.8 Baso % (Auto) 0.2 Neut # (Auto) 7.39 H Lymph # (Auto) 0.51 L Nelson # (Auto) 0.73 H Eos # (Auto) 0.07 Baso # (Auto) 0.02 Immature Gran # (Auto) 0.07 Sodium 143 Potassium 4.2 Chloride 113 H Carbon Dioxide 25 Anion Gap 5 BUN 18 Creatinine 1.11 Est Cr Clr Drug Dosing 47.5 eGFR 63.87 BUN/Creatinine Ratio 16.2 Glucose 85 POC Glucose 71 Lactate 1.3 Calcium 8.8 Phosphorus 2.6 Magnesium 1.8 Procalcitonin 3.28 H 06/08/24 06/08/24 06/08/24 06:06 00:09 00:07 WBC RBC Hgb Hct MCV MCH MCHC RDW Std Deviation RDW Coeff of Ramy Plt Count MPV Immature Gran % (Auto) Neut % (Auto) Lymph % (Auto) Nelson % (Auto) Eos % (Auto) Baso % (Auto) Neut # (Auto) Lymph # (Auto) Nelson # (Auto) Eos # (Auto) Baso # (Auto) Immature Gran # (Auto) Sodium Potassium Chloride Carbon Dioxide Anion Gap BUN Creatinine Est Cr Clr Drug Dosing eGFR BUN/Creatinine Ratio Glucose POC Glucose 73 68 L* 68 L* Lactate Calcium Phosphorus Magnesium Procalcitonin 06/07/24 20:31 WBC RBC Hgb Hct MCV MCH MCHC RDW Std Deviation RDW Coeff of Ramy Plt Count MPV Immature Gran % (Auto) Neut % (Auto) Lymph % (Auto) Nelson % (Auto) Eos % (Auto) Baso % (Auto) Neut # (Auto) Lymph # (Auto) Nelson # (Auto) Eos # (Auto) Baso # (Auto) Immature Gran # (Auto) Sodium Potassium Chloride Carbon Dioxide Anion Gap BUN Creatinine Est Cr Clr Drug Dosing eGFR BUN/Creatinine Ratio Glucose POC Glucose 82 Lactate Calcium Phosphorus Magnesium Procalcitonin Diagnostic Findings Urine culture (06/06/2024, 11:54pm): > 3 organisms Blood culture #1 (06/06/2024, 11:54pm): aerobic bottle (Staphylococcus aureus, sensitivities pending), anaerobic bottle (Staphylococcus aureus, sensitivities pending; Proteus vulgaris,sensitivities pending) Blood culture #1 (06/07/2024, 1:31am): aerobic bottle (Staphylococcus aureus, sensitivities pending), anaerobic bottle (Staphylococcus aureus, sensitivities pending) Blood culture #1 (06/07/2024, 4:57pm): no growth to date Blood culture #1 (06/07/2024, 4:57pm): no growth to date PG Care Time/CCT Total # of Minutes Spent Total Time Spent with Patient: Total time spent is greater than 50% in coordination of care (as documented) at patient's floor/unit and/or counseling patient: Coding Level of Care Code 97958 SUB INP/OBS CARE 2/35MIN Diagnoses Sepsis A41.9 Acute renal failure type: unspecified Sepsis acute organ dysfunction status: with acute organ dysfunction Sepsis type: sepsis due to unspecified organism Severe sepsis acute organ dysfunction type: acute renal failure Aortic stenosis I35.0 Mitral regurgitation I34.0 Renal mass N28.89 Irregular heart rhythm I49.9 Ambulatory dysfunction R26.2 Parkinson disease G20 Recurrent UTI (urinary tract infection) N39.0 Hypertension I10 Altered mental status R41.82 Altered mental status type: unspecified BPH w urinary obs/LUTS N40.1; N13.8 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 stage III I12.9; N18.30 Dementia F03.90 (1) Sepsis Acute renal failure type: unspecified Sepsis acute organ dysfunction status: with acute organ dysfunction Sepsis type: sepsis due to unspecified organism Severe sepsis acute organ dysfunction type: acute renal failure (10) Altered mental status Altered mental status type: unspecified Qualified Code(s): R41.82 - Altered mental status, unspecified
[2024-06-09 07:48] LABS: Basophils # (auto) 0.01 K/uL (0.00-0.20); Basophils % (auto) 0.2 %; Eosinophils # (auto) 0.12 K/uL (0.00-0.50); Eosinophils % (auto) 2.2 %; Hematocrit (blood only) 38.9 % (42.0-52.0); Hemoglobin 12.9 g/dl (14.0-18.0); Immature Granulocytes # (auto) 0.04 K/uL (0.01-0.20); Immature Granulocytes % (auto) 0.7 %; Lymphocytes # (auto) 0.49 K/uL (1.20-3.40); Lymphocytes % (auto) 8.9 %; Mean Corpuscular Hemoglobin 31.2 pg (25.0-34.0); Mean Corpuscular Hgb Conc 33.2 g/dL (32.0-36.0); Mean Corpuscular Volume 94.2 fL (80.0-100.0); Mean Platelet Volume 10.3 fL (9.4-12.4); Monocytes # (auto) 0.83 K/uL (0.11-0.59); Neutrophils # (auto) 4.03 K/uL (1.40-6.50); Platelet Count 143 K/uL (130-400); RDW Coefficient of Variation 13.3 % (11.5-14.5); Red Blood Count 4.13 M/uL (4.70-6.10); White Blood Count 5.52 K/ul (4.8-10.8)
[2024-06-09 08:10] LABS: BUN Creatinine Ratio 12.1 (10-20); Calcium 8.9 mg/dl (8.6-10.3); Creatinine Clr Calc Pharmacy 53.3 ml/min; Potassium 4.2 mmol/L (3.5-5.1)
[2024-06-09] MEDS ORDERED: VANCOMYCIN CONSULT ACTIVE PRN (08:42)
[2024-06-09] MEDS ORDERED: VANCOMYCIN HCL 1,000 MG/270 ML BAG IV SCH (08:45)
[2024-06-09] MEDS ORDERED: CEFEPIME 1000MG 1,000 MG/10 ML SYR IV SCH (08:50)
[2024-06-09] MEDS ORDERED: VANCOMYCIN 2,000 MG in D5W 500mL (Use w/ NSS Shortage) IV ONE (09:00)
[2024-06-09] MEDS: D5W AND NSS 1,000 ML IV ONE (09:22)
--- NOTE | 2024-06-09 09:25 | Palliative Care Consultation ---
Date of Consultation June 09, 2024 Assessment & Plan (1) Palliative care by specialist: Met with pt's Dori at bedside and daughter Joanie via phone to discuss GOC. Dr Robertson was present for the majority of the conversation. Introduced Palliative Medicine and explained our role in advanced care planning, symptom management and navigation through the progression of life limiting disease. Patient and/or family were receptive to palliative services for goals of care discussions. Reviewed we are different from hospice, a home health nurse visiting service. (2) Counseling regarding advanced directives and goals of care: Discussed GOC and advanced directive with family from 13:00 -13:45. Dr Robertson was present and gave medical updates, Hehelped the family understand that pt has both UTI and septecemia (with UTI as likely source) and despite some improvement with IV antibiotics, the pt will likely have recurrent UTI/sepsis after antibiotics are stopped. He encouraged that future risk of UTI can be mitigated by changing thurston every 3-4weeks and daily proper thurston care, but as long as he requires a thurston he remains as high risk. Dr Robertson explained to Dori that the patient will likely require a thurston for the remainder of his life due to his parkinson's disease. Dori expressed concern that the pt has been declining cognitively since April when he was also admitted for urosepsis. She shared that he is not able to do things that he was doing easily just a few months ago and is requiring more direct nursing care and assistance with ADLs. She shared concern that his parkinson's dementia seems to be progressing more rapidly since April and questioned if it might be time to consoder hospice care. We discussed the typical progression of dementia and helped Dori/Joanie to differentiate between dementia (progressively debilitating and terminal) and dementia (transient and generally secondary to another illness/disease process). Discussed hospice benefit: an interdisciplinary program offered by nurses, nurses aides, social workers, chaplains and a medical device for patients with a terminal condition and a life expectancy of less than 6 months. This is covered by Medicare at 100%/no out of pocket expense to patient and all meds/supplies needed by patient for the reason they are on hospice are paid for/covered by hospice. The goal is assure quality of life of the patient in their home setting (home, intermediate, inpatient hospice setting) by providing symptoms management, psychosocial and spiritual support. However, they cannot offer 24 hours care and if the family is unable to provide that care, they will have to consider personal care with out of pocket cost vs. intermediate placement. We discussed the goals of hospice as a patient service and the goals of care; we discussed EOL trajectories and transitions mikey the emotional impact of realizing mortality as a concrete reality from prior abstract considerations. Pt was reassured that no matter where they are along this trajectory, they are not alone - their medical team will remain by their side through their journey. Discussed the pros/cons of accepting help when especially weakened and distressed by pain-which would also help provide relief/decrease caregiver burden/strain. Joanie disagreed with Dori and shared that she speaks with pt by phone multiple times per week and "he is coherent", she shared that she visits every couple months and she has not noticed a decline. She expressed desire to outpt palliative car team to assist with pt care in SNF. Discussed that [facility] outpt palliative care is not a mobile service and would involve pt coming to clinic. With this knowledge,family declines outpt palliative follow up. Joanie shared that the pt has [facility] and requested information on any resources that could see pt in SNF and offer assistance with navigation through progression of disease as well as possibly limit hospitalizations. She expressed clearly that they are not ready to transition to hospice and still wish to pursue life prolonging therapies. We discussed [facility]'s Enhanced Community Care Management (ECCM) program thathelps manage chronic conditions and maximize independence.ECCM is available to [facility] members providing more frequent check-insto help pt/family understand diagnostics and disease progression, manage appointments and medications; symptom management; navigate healthcare and create advance care plans. Joanie and Dori shared that this program "sounds like exactly what we need right now". Discussed with CM and requested referral be placed for ECCM. (3) Physician orders for life-sustaining treatment (POLST) form indicates patient wish for [id number] status: Further discussion held with family regarding POLST on file which was completed 06/19/2021. This was completed properly by patient, however it documented use of ABx only with comfort as a goal. Helped family understand that this is inconsistent with the current level of care as well as their expressed desire to continue life prolonging therapies up to but excluding resuscitation and mechanical ventilation. Joanie and Dori both expressed desire for antibiotics to continue with hopes of prolonging life. New POLST was completed by Dori Davenport with Dr. Robertson's assistance. Original form placed on chart for scanning into EMR, But should be sent with pt on discharge. Plan POLST completed to reflect current wishes for ongoing life prolonging therapies up to but excluding resuscitation and mechanical ventilation. Patient requires a referral to [facility]'s Enhanced Community Care Management ([facility]) program for outpt follow up. Palliative will sign off on this patient as goals of care are clearly established for DNR/DNI but continue all other life prolonging therapies. Thank you for including Palliative Care in the management of this patient. Please call with any questions or concerns regarding this consultation. 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 Patient had approximately 800 cc of retained urine with thurston in place. BSRN was unable to deflate thurston balloon and met resistance with attempt to remove. Subsequently, Dr. Keshawn Jin, Urology Service, was able to remove the pre- existing, indwelling thurston under pressure in [facility] ER. Initially, the plan was to discharge patient back to [facility] on 06/07/2024, but the patient became febrile with chills. Patient was subsequently admitted to the hospitalist service @ [facility] on 06/07/2024 for urosepsis and metabolic encephalopathy. Allergies Allergy/AdvReac Type Severity Reaction Status Date / Time No Known Allergies Allergy Verified 11/07/23 12:27 Home Medications Medication Instructions Recorded Confirmed Type carbidopa 25 mg-levodopa 100 mg 1 tab PO QID 12/04/21 06/07/24 History tablet (Sinemet) cholecalciferol (vitamin D3) 50 50 mcg PO DAILY 12/04/21 06/07/24 History mcg (2,000 unit) capsule finasteride 5 mg tablet (Proscar) 5 mg PO QAM 12/04/21 06/07/24 History pantoprazole 40 mg tablet,delayed 40 mg PO 3XWK 12/04/21 06/07/24 History release cyanocobalamin (vitamin B-12) 1,000 mcg PO DAILY 01/21/22 06/07/24 History 1,000 mcg tablet (Vitamin B-12) bisacodyl 10 mg rectal suppository 10 mg AZ Q48H PRN Constipation 10/06/22 06/07/24 History (Dulcolax (bisacodyl)) magnesium hydroxide 400 mg/5 mL 30 ml PO Q48H PRN Constipation 10/06/22 06/07/24 History oral suspension (Milk of Magnesia) sodium phosphates 19 gram-7 118 ml AZ Q72H PRN Constipation 10/06/22 06/07/24 History gram/118 mL enema (Fleet Enema) metoprolol tartrate 25 mg tablet 12.5 mg (1/2 x 25 mg) PO BID #30 10/10/22 06/07/24 Rx tabs aspirin 81 mg tablet,delayed 81 mg PO DAILY 03/30/23 06/07/24 History release acetaminophen 650 mg rectal 650 mg AZ Q4H PRN FEVER <99.5 09/05/23 06/07/24 History suppository carboxymethylcellulose sodium 0.5 1 drp OPB BID PRN Dry Eyes 09/05/23 06/07/24 History % eye drops (Refresh Tears) clotrimazole 1 % topical cream 1 applic topical BID PRN Rash 09/05/23 06/07/24 History (Lotrimin AF (clotrimazole)) hydrocortisone 1 % topical cream 1 applic topical BID PRN LEFT 09/05/23 06/07/24 History EAR/NOSE/OUTER EYE RASH voerlvlw-rudcyr-OC-thonzonm 3.3 4 drp OTL DAILY PRN 09/05/23 06/07/24 History mg-3 mg-10 mg-0.5 mg/mL ear INFLAMMATION/ITCHING drops,susp selenium sulfide 1 % shampoo 1 applic topical 2XWK 09/05/23 06/07/24 History (Selsun Blue) polyethylene glycol 3350 17 17 g PO DAILY #0 grams 09/11/23 06/07/24 Rx gram/dose oral powder (Miralax) sennosides 8.6 mg tablet (senna) 17.2 mg (2 x 8.6 mg) PO DAILY #0 09/11/23 06/07/24 Rx tabs Patient History Medical History Dementia Lab test negative for COVID-19 virus Acute dehydration Weakness Resides in detention facility Dysphonia Dysarthria and anarthria 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 stage III Dysphagia Other abnormalities of gait and mobility Weakness Muscle spasm of back Hyperlipidemia Diverticulosis of large intestine without perforation or abscess without bleeding History of blood clots Poor historian Hearing deficit Hypertension Surgical History History of colonoscopy Status post Mohs surgery History of knee surgery History of eye surgery Family History Other Adopted Social History Smoking Status: Never smoker Second Hand Exposure: No; Do You Dip or Chew Tobacco: No; Hx Alcohol Use: No Hx Substance Use: No Preferred Language: [place] Communication Ability: Impaired Director Supply [employer] Required: No Beliefs That Will Affect Care: None marital status: Current Living Situation: Care Home Current Living Situation Comment: [employer] current occupational status: retired Feels Safe at Home: Yes Assistive Devices: Wheelchair Review of Systems Review of Systems: Unobtainable due to cognitive status Physical Exam Constitutional: well developed, well nourished and cooperative Eyes: PERRL, conjunctivae normal, anicteric sclerae ENMT: external ear and nose normal, oropharynx normal Neck: trachea midline, no thyromegaly Respiratory: normal respiratory effort, lungs clear to auscultation Gastrointestinal (Abdomen): normal bowel sounds, soft, nontender, no hepatosplenomegaly Musculoskeletal: Extremities: extremities normal to inspection NAVEED with strength and purpose Skin: no rashes, warm and dry pale Neurologic: drowsy but arousable, oriented to person and place Genitourinary: chronic indwelling thurston 2/2 urinary retention, clear yellow urine Results & Data Vital Signs (Past 12 Hours) Vital Signs Temp Pulse Resp BP Pulse Ox Pulse Ox O2 Del Method 06/09/24 07:47 36.6 C 106 H 16 136/86 93 Room Air 06/09/24 05:00 94 06/09/24 02:50 37.2 C 69 20 114/66 94 Room Air 06/08/24 22:47 36.5 C 74 16 120/66 93 Room Air O2 Del Method 06/09/24 07:47 06/09/24 05:00 Room Air 06/09/24 02:50 06/08/24 22:47 Laboratory Results Abnormal lab results 06/08/24 06/08/24 06/09/24 Range/Units 20:46 23:53 07:29 RBC 4.13 L (4.70-6.10) M/uL Hgb 12.9 L (14.0-18.0) g/dl Hct 38.9 L (42.0-52.0) % Lymph # (Auto) 0.49 L (1.20-3.40) K/uL [place] # (Auto) 0.83 H (0.11-0.59) K/uL Chloride 114 H (98-107) mmol/L Glucose 118 H (70-99(Fasting)) mg/dl POC Glucose 109 H 105 H (70-99) mg/dl Procalcitonin 1.85 H (0-0.5) ng/ml 06/09/24 Range/Units 11:41 RBC (4.70-6.10) M/uL Hgb (14.0-18.0) g/dl Hct (42.0-52.0) % Lymph # (Auto) (1.20-3.40) K/uL [place] # (Auto) (0.11-0.59) K/uL Chloride (98-107) mmol/L Glucose (70-99(Fasting)) mg/dl POC Glucose 104 H (70-99) mg/dl Procalcitonin (0-0.5) ng/ml Diagnostic Findings Chest X-Ray 06/06/24 23:47 EXAM: XR chest 1V portable CLINICAL HISTORY: Fever, chills, AMS TECHNIQUE: An X-ray image of the chest is obtained in AP projection. COMPARISON: 09/05/2023, CR Chest FINDINGS: Pulmonary Parenchyma: Inadequate inspiration seen Patient is rotated Chest leads are seen Questionable opacification seen in left lung lower zone No evidence of collapse. No pulmonary nodules are identified. Mild blunting of left costophrenic angle seen Right costophrenic angle appears normal Heart and Mediastinum: Heart size and shape are normal. No mediastinal widening or masses. Prominent both rajesh are identified Bony Thorax: Degenerative changes seen in visualized spine with osteophytes Soft Tissues: Soft tissues overlying the chest wall are unremarkable. IMPRESSION: Mild blunting of left costophrenic angle, likely due to pleural effusion/thickening. No significant change Questionable opacification in left lung lower zone, this may be due to overlying soft tissue shadow, however possibility of evolving infection cannot be excluded. Clinical correlation and follow-up is advised. This was not well seen in prior examination Prominent both rajesh likely due to vascular congestion/lymph nodes No other significant interval changes seen Electronically signed by Lucy Stanley 06-07-2024 01:33 AM Medications Administered Current Inpatient Medications Acetaminophen (Acetaminophen 500 Mg Tab) 500 mg PO Q6H PRN PRN Reason: Pain or Fever Stop: 07/07/24 03:38 Al Hydrox/Mg Hydrox/Simethicone (Aluminum/Magnesium Susp 30 Ml Udc) 15 ml PO Q4H PRN PRN Reason: Dyspepsia Stop: 07/07/24 03:38 Dextrose (Dextrose 50% 50 Ml Syringe) 50 ml IV PRN PRN PRN Reason: Hypoglycemia Treatment Stop: 07/08/24 19:10 Last Admin: 06/08/24 19:18 Dose: 50 ml Pantoprazole Sodium (Protonix) 40 mg in 10 mls @ 5 mls/min IV DAILY CORI Stop: 07/07/24 08:59 Last Admin: 06/09/24 11:02 Dose: 5 mls/min Acetaminophen (Ofirmev) 1,000 mg in 100 mls @ 400 mls/hr IV Q8H PRN PRN Reason: Fever Stop: 06/10/24 15:48 Cefepime HCl (Maxipime 2000mg) 2,000 mg in 20 mls @ 5 mls/min IV Q12H CORI Stop: 06/23/24 08:59 Last Admin: 06/09/24 11:02 Dose: 5 mls/min Dextrose/Sodium Chloride (D5w And Nss) 1,000 mls @ 78 mls/hr IV .[id number] ONE Stop: 06/09/24 21:52 Last Admin: 06/09/24 09:22 Dose: 78 mls/hr Vancomycin HCl 1,500 mg/ (Sodium Chloride) 530 mls @ 200 mls/hr IV Q24H CORI Stop: 06/24/24 04:59 Magnesium Hydroxide (Magnesium Hydroxide Susp 30 Ml Udc) 30 ml PO Q12H PRN PRN Reason: Constipation Stop: 07/07/24 03:38 Miscellaneous Information (Vancomycin Consult Active) 1 each N/A UD PRN PRN Reason: Consult Stop: 07/09/24 08:41 Ondansetron HCl (Ondansetron Inj 2 Mg/Ml 2 Ml Vial) 4 mg IV Q6H PRN PRN Reason: Nausea Stop: 07/07/24 03:38 Polyethylene Glycol (Polyethylene (Miralax) 17 Gm Pack) 17 gm PO Q6H PRN PRN Reason: Constipation Stop: 07/07/24 03:38 PG Care Time/CCT Total # of Minutes Spent Total Time Spent with Patient: Total time spent is greater than 50% in coordination of care (as documented) at patient's floor/unit and/or counseling patient: Advanced Care Planning 79450 Advanced Care Planning 30 [place] [address] IN/OBS CONSULT LVL 2,35M Patient Type New History Problem Focused Exam Problem Focused Medical Decision Making Low Complexity Diagnoses Palliative care by specialist Z51.5 Counseling regarding advanced directives and goals of care Z71.89 Physician orders for life-sustaining treatment (POLST) form indicates patient wish for [id number] status Z66 Additional Codes Advanced Care Planning - 83546 Advanced Care Planning 30 Min: 20344 Advanced Care Planning 30 Min ([id number])
[2024-06-09] MEDS: CEFEPIME 2000MG 2,000 MG/20 ML SYR IV SCH (11:02)
[2024-06-09] MEDS: VANCOMYCIN HCL 2,000 MG in SODIUM CHLORIDE 0.9% 500 ML IV ONE (11:11)
--- NOTE | 2024-06-09 12:38 | Pharmacy Report ---
Pharmacy PK ABX Note - Date of Service June 09, 2024 - Assessment and Plan Assessment 88 year old M receiving vancomycin and cefepime for treatment of MRSA bacteremia secondary to CAUTI, previously receiving daptomycin. Pertinent microbiologic data includes: Positive MRSA Nasal Swab, blood cultures growing MRSA (2 of 2), Proteus vulgaris (1 of 2). Patient presents from [facility] due to non-draining thurston. He has a history of BPH/LUTS/renal mass and history of MRSA UTI. Day # 1 of antimicrobial therapy. Plan Vancomycin * Loading dose: 2000 mg IV x 1 * Maintenance dose: 1500 mg IV every 24 hours * Regimen is predicted to achieve target AUC/ROXANNA of 400-600 mg/L.hr * Trough level ordered for: 06/11/24 Cefepime * 2 g IV q12h - appropriate dosed for indication/renal function Pharmacy will continue to follow and will adjust dose/frequency as necessary. Thank you. Pharmacy has transitioned to AUC monitoring for vancomycin. AUC/ROXANNA is the preferred PK/PD target and is associated with decreased risk of nephrotoxicity compared to traditional trough targets.
--- NOTE | 2024-06-09 15:50 | Electrocardiogram Report ---
Test Reason : Blood Pressure : */* mmHG Vent. Rate : 93 BPM Atrial Rate : * BPM P-R Int : * ms QRS Dur : 86 ms QT Int : 362 ms P-R-T Axes : * -19 0 degrees QTcB Int : 450 ms Atrial fibrillation with premature ventricular or aberrantly conducted complexes Nonspecific ST abnormality Abnormal ECG When compared with ECG of 06-Jun-2024 21:16, (unconfirmed) Atrial fibrillation has replaced Sinus rhythm Left anterior fascicular block is no longer Present Incomplete right bundle branch block is no longer Present Questionable change in QRS axis Confirmed by Jose Ro ([id number]) on 06/09/2024 3:50:01 PM Referred By: Doyle Pimentel Confirmed By: Jose Ro
--- NOTE | 2024-06-09 17:05 | Electrocardiogram Report ---
Test Reason : Blood Pressure : */* mmHG Vent. Rate : 90 BPM Atrial Rate : 90 BPM P-R Int : 214 ms QRS Dur : 94 ms QT Int : 366 ms P-R-T Axes : 25 -54 15 degrees QTcB Int : 447 ms Sinus rhythm with 1st degree A-V block Incomplete right bundle branch block Left anterior fascicular block Cannot rule out Inferior infarct (masked by fascicular block?) , age undetermined Abnormal ECG When compared with ECG of 30-Mar-2023 16:16, Premature ventricular complexes are no longer Present MN interval has increased Left anterior fascicular block is now Present Incomplete right bundle branch block is now Present Confirmed by Jose Ro ([id number]) on 06/09/2024 5:05:00 PM Referred By: Doyle Pimentel Confirmed By: Jose Ro
--- NOTE | 2024-06-09 18:04 | Hospitalist Progress Note ---
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, renal mass, hyperlipidemia, HTN, "irregular heart rhythm", myxomatous mitral valve with bileaflet prolapse and mild mitral regurgitation (as noted on 10/07/2022 TTE), ambulatory dysfunction, and chronic urinary retention with indwelling thurston catheter for more than 1 month without exchange/replacement with new thurston catheter, who came to [facility] ER on 06/07/2024 with urinary retention, Patient was subsequently admitted to the inpatient hospitalist service @ [facility] on 06/07/2024, after becoming hypotensive, tachycardic and febrile in [facility] ER with acute urinary retention with pre-existing, indwelling thurston catheter. Patient had approximately 800 cc of retained urine with thurston not draining any urine. Subsequently, Urology Service of Dr. Keshawn Jin was able to remove the pre- existing, indwelling thurston under pressure (06/06/2024, 10:15pm) in [facility] ER. Initially, the plan was to discharge patient back to [facility] on 06/07/2024, but the patient became febrile with chills. Patient was subsequently admitted to the inpatient hospitalist service @ [facility] on 06/07/2024 with the following diagnoses: 1. Sepsis due to catheter-associated UTI with hematogenous dissemination of MRSA and ceftriaxone-resistant Proteus mirabilis (e.g., MRSA bacteremia as noted on 06/06/2024, 11:54pm blood culture and on 06/07/2024, 1:31am blood culture; Proteus mirabilis bacteremia as noted on 06/06/2024, 11:54pm blood culture). 2. Acute toxic metabolic encephalopathy, due to #1 above. 3. Acute hypoglycemia with admission glucose 82 mg/dL (06/07/2024, 8:31pm), due to #1 above. #Sepsis due to catheter-associated UTI/acute toxic metabolic encephalopathy - suspect urinary source given proximity of thurston manipulation and temperature - CXR shows mild blunting of left costophrenic angle, likely due to pleural effusion / thickening, ?opacification in left lower lung zone (overlying soft tissue shadow vs infection) - UA: >50 wbc, >20 RBC (in the setting of forced thurston removal), 6-10 epithelial cells, 4+ bacteria - Has had multiple UTIs in the last year with significant resistance patterns - patient was initially started on daptomycin 600mg IV daily x 2 doses (06/07/2024, 4:16am; 06/08/2024, 3:55am), then zosyn 4.5g IV x 1 dose (06/07/2024, 4:19am), then zosyn 4.5g IV q8 x 4 doses (06/07/2024, 9:43am; 06/07/2024, 5:00pm; 06/08/2024, 1:53am; 06/08/2024, 9:27am), then ceftriaxone 2 mg IV daily (06/07/2024, 1:43am; 06/08/2024, 6:36pm) as patient's WBC has declined to normal from 15.82 (06/07/2024, 6:41am) to 8.79 (06/08/2024, 6:14am); check repeat WBC w/diff in the 06/10/2024 am. - cont IVF - BCx / UCx pending - PO / IV tylenol prn - cont IVF - lactate subsequently declined to normal from 2.6 mmol/L (06/07/2024, 1:34am) to 1.3 mmol/L (06/07/2024, 4:26am)(06/08/2024, 9:32am) to 1.1 mmol/L (06/09/2024, 7:29am) on ceftriaxone 2g IV daily; check repeat lactic acid in the 06/10/2024 am. - procalcitonin initially increased from 3.03 ng/mL (06/07/2024, 6:41am) to 3.28 ng/mL (06/08/2024, 6:14am), before declining to 1.85 ng/mL (06/09/2024, 7:29am) on ceftriaxone 2g IV daily; check repeat procalcitonin in the 06/10/2024 am. Based on the lactate and procalcitonin level trends while patient received monotherapy utilizing ceftriaxone 2g IV daily x 4 doses, I am not certain if patient actually suffers from MRSA bacteremia as ceftriaxone has no activity against MRSA. In addition, ceftriaxone has no activity against ceftriaxone- resistant Proteus mirabilis (e.g., bacteremia as noted on 06/06/2024, 11:54pm blood culture). Subsequently, I opted to D/C ceftriaxone 2g IV daily on 06/09/2024, before patient could receive a dose of ceftriaxone 2g IV daily on 06/09/2024, 9:00pm. In its place, I started patient on vancomycin 2g IV x 1 dose (06/09/2024, 11:11am), followed by vancomycin 1.5g IV daily (06/10/2024, 5:00am). I also started patient on cefepime 2g IV q12 (06/09/2024, 11:02am). I will check vitals, genito-urinary exam, WBC w/diff, lactic acid, procalcitonin, and repeat blood cultures (to be drawn on 06/10/2024 am) in the 06/10/2024 am. #Acute hypoglycemia with admission glucose 82 mg/dL (06/07/2024, 8:31pm), RESOLVED, due to #1 above. Despite multiple attempts to treat patient's acute hypoglycemia with apple juice, patient remains persistently hypoglycemic: cf., glucose 71 mg/dL (06/08/2024, 12:10pm). cf., glucose 79 mg/dL (06/08/2024, 2:02pm). cf., glucose 68 mg/dL (06/08/2024, 6:00pm). cf., glucose 67 mg/dL (06/08/2024, 6:01pm). cf., glucose 52 mg/dL (06/08/2024, 7:03pm). cf., glucose 62 mg/dL (06/08/2024, 7:04pm). Consequently, I started patient on 1 liter of 0.9% D5-0.9% NS @ 76 mL/hr (06/08/2024, 7:15pm), based on a delivery rate of 1 mL of D5-0.9% NS per kg of body weight per hour, and a body weight of 76.2 kg. Subsequently, patient's glucose levels have started to increase: cf., glucose 76 mg/dL (06/08/2024, 7:34pm). cf., glucose 109 mg/dL (06/08/2024, 8:46pm). cf., glucose 118 mg/dL (06/09/2024, 7:29am). Subsequently, I started patient on 1 liter of 0.9% D5-0.9% NS @ 78 mL/hr (06/09/2024, 9:22am), based on a delivery rate of 1 mL of D5-0.9% NS per kg of body weight per hour, and a body weight of 77.7 kg. Subsequently, patient continues to undergo POC glucose q6h while in [facility]. #BPH w/LUTS/Renal Mass/CKD-III - 3-way thurston in for possible CBI given traumatic thurston removal, reddish urine but no clots - Flush as needed - Renal mass being followed by urology - Cr essentially at baseline - Continue finasteride when tolerating PO #Irregular heat rhythm/afib/MR/ - Does not appear to be on AC - Continue metoprolol, ASA once pt is able to take PO - Monitor volume status #Ambulatory Dysfunction - PT/OT eval and treat - Uses assistive devices at baseline - fall precautions #Parkinson's Disease with dementia - cont Sinemet when pt is able to tolerate PO - keep NPO now given AMS - WE[employer] AP[employer]S ADMINISTRATOR evaluation pending - aspiration precautions - delirium precautions (Raising blinds during the day, closing at night | Frequent re-orientation | Contact with family/friends | Explaining procedures/nursing care measures prior to physical contact | Correct any hearing and visual impairments_ Code status: DNR/DNI - reviewed POLST form provided by [facility] DVT prophylaxis: SCDs, if no hematuria tomorrow, hep subq to be initiated Isolation: none Disposition: PCU 06/07: pt's and daughter / her at bedside 06/08: patient's , Joanna, at bedside, with Hospitalist Dr. Yosef Robertson 3: patient's , Joanna, and Palliative Care Ms. Joanna Yosi, at bedside, AND patient's daughter, Physical Therapist Joanie Pineday (in [place]) on teleconference at bedside, with Hospitalist Dr. Yosef Robertson, for 35 minutes, and all in agreement that patient will continue with parenteral antibiotics to ensure resolution of bacteremia before patient is discharged back to [facility], and that patient's , Joanna Davenport, will call up her 's health insurance company, [employer], to inquire about their Enhanced Community Care Management Program, which is analagous to an outpatient Palliative Care Service. Admission and Anticipated Discharge Date Admission Date: June 07, 2024 Subjective "I am ok." Review of Systems Constitutional: Negative for antecedent/coincident fevers, chills, diaphoresis, cough, wheeze, sore throat, hemoptysis, chest pains, palpitations, pleurisy, nausea, vomiting, diarrhea, abdominal pain, pelvic pain, hematemesis, hematochezia, melena, hematuria, dysuria, frequency, urgency, headaches, dizziness, lightheadedness, visual changes, hearing changes, falls, syncope, trauma, travel history, sick contacts, or food/drug ingestions novel or new. All other review of systems are reported as negative by the patient on 06/09/2024. Physical Exam Constitutional: General: Comfortable, coherent, cooperative. Wide awake and alert. Not confused, lethargic, or obtunded. Patient speaks in complete, fluent, and articulate sentences without pause, interruption, cough, or wheeze. HEENT: Normocephalic, atraumatic. Pupils equally round and reactive to light. Extra-ocular muscles intact. No nystagmus, gaze paresis, anisocoria, miosis, mydriasis, hyphema, scleral injection, conjunctivitis, or pterygium. No rhinorrhea or otorrhea. No pharyngeal discharge or erythema. Neck: Supple, no stridor, bruit, goiter, hepatojugular reflux. Jugular venous pressure is estimated to be 8 cm above the sternal angle of Joselo, which is estimated to be 5 cm above the level of the right atrium. Lymph: No anterior/posterior cervical, supraclavicular/infraclavicular, axillary, epitrochlear, or inguinal adenopathy. Chest: Symmetric rise and fall with respirations. Lungs: Clear to auscultation and percussion. No audible expiratory wheeze, egophony, pectoriloquy, increase in tactile fremitus, or flatness/dullness to percussion at the bases. Heart: RRR, S1 and S2 noted. No S3 or S4 summation gallop noted. No tripartite friction rub. Grade II/ early systolic murmur @ LLSB without radiation to the carotids, axilla, or back, and which remains invariant in regards to the respiratory cycle. Abdomen: Soft, generalized tenderness, non-distended. No rebound, guarding, Dawn's sign, or organomegaly. Bowel sounds sounds auscultated in all 4 quadrants. Extremities: No clubbing, cyanosis, or edema. 2+ pedal pulses bilaterally. Skin: No decubitus ulcer, exanthem, or enanthem. Neurology: Alert and oriented to person, place, time, and situation. DTR+ and symmetric. 5/5 motor strength in all 4 extremities, both proximally and distally. No pronator drift. No facial droop. No tremors, tics, or myoclonus. Urology: + thurston with 350 cc of clear yellow urine. No urethral discharge. Psychiatry: No suicidal ideation. No homicidal ideation. Results & Data Results & Data Vital Signs (Past 12 Hours) Vital Signs Temp Pulse Resp BP Pulse Ox O2 Del Method 06/09/24 15:30 36.6 C 65 17 159/89 H 94 Room Air 06/09/24 11:22 37.0 C 68 20 132/79 91 Room Air 06/09/24 08:30 Room Air 06/09/24 07:47 36.6 C 106 H 16 136/86 93 Room Air Laboratory Results 06/07/24 01:31 Aerobic Blood Culture - Final Blood Staph aureus MRSA Anaerobic Blood Culture - Final Staph aureus MRSA 06/06/24 23:54 Aerobic Blood Culture - Final Blood Staph aureus MRSA Anaerobic Blood Culture - Final Staph aureus MRSA Proteus vulagris group 06/07/24 16:57 Aerobic Blood Culture - Preliminary Blood No growth in Aerobic bottle after 24 hours. Anaerobic Blood Culture - Preliminary No growth in Anaerobic bottle after 24 hours. 06/07/24 16:57 Aerobic Blood Culture - Preliminary Blood No growth in Aerobic bottle after 24 hours. Anaerobic Blood Culture - Preliminary No growth in Anaerobic bottle after 24 hours. 06/09/24 06/09/24 06/09/24 11:41 07:29 05:47 WBC 5.52 RBC 4.13 L Hgb 12.9 L Hct 38.9 L MCV 94.2 MCH 31.2 MCHC 33.2 RDW Std Deviation 46.0 RDW Coeff of Ramy 13.3 Plt Count 143 MPV 10.3 Immature Gran % (Auto) 0.7 Neut % (Auto) 73.0 Lymph % (Auto) 8.9 Stonewall % (Auto) 15.0 Eos % (Auto) 2.2 Baso % (Auto) 0.2 Neut # (Auto) 4.03 Lymph # (Auto) 0.49 L [place] # (Auto) 0.83 H Eos # (Auto) 0.12 Baso # (Auto) 0.01 Immature Gran # (Auto) 0.04 Sodium 143 Potassium 4.2 Chloride 114 H Carbon Dioxide 26 Anion Gap 3 BUN 12 Creatinine 0.99 Est Cr Clr Drug Dosing 53.3 eGFR 73.27 BUN/Creatinine Ratio 12.1 Glucose 118 H POC Glucose 104 H 92 Lactate 1.1 Calcium 8.9 Procalcitonin 1.85 H 06/08/24 06/08/24 06/08/24 23:53 20:46 19:34 WBC RBC Hgb Hct MCV MCH MCHC RDW Std Deviation RDW Coeff of Rmay Plt Count MPV Immature Gran % (Auto) Neut % (Auto) Lymph % (Auto) [place] % (Auto) Eos % (Auto) Baso % (Auto) Neut # (Auto) Lymph # (Auto) [place] # (Auto) Eos # (Auto) Baso # (Auto) Immature Gran # (Auto) Sodium Potassium Chloride Carbon Dioxide Anion Gap BUN Creatinine Est Cr Clr Drug Dosing eGFR BUN/Creatinine Ratio Glucose POC Glucose 105 H 109 H 76 Lactate Calcium Procalcitonin 06/08/24 06/08/24 06/08/24 19:04 19:03 18:01 WBC RBC Hgb Hct MCV MCH MCHC RDW Std Deviation RDW Coeff of Ramy Plt Count MPV Immature Gran % (Auto) Neut % (Auto) Lymph % (Auto) [place] % (Auto) Eos % (Auto) Baso % (Auto) Neut # (Auto) Lymph # (Auto) [place] # (Auto) Eos # (Auto) Baso # (Auto) Immature Gran # (Auto) Sodium Potassium Chloride Carbon Dioxide Anion Gap BUN Creatinine Est Cr Clr Drug Dosing eGFR BUN/Creatinine Ratio Glucose POC Glucose 62 L* 52 L* 67 L* Lactate Calcium Procalcitonin 06/08/24 18:00 WBC RBC Hgb Hct MCV MCH MCHC RDW Std Deviation RDW Coeff of Ramy Plt Count MPV Immature Gran % (Auto) Neut % (Auto) Lymph % (Auto) [place] % (Auto) Eos % (Auto) Baso % (Auto) Neut # (Auto) Lymph # (Auto) [place] # (Auto) Eos # (Auto) Baso # (Auto) Immature Gran # (Auto) Sodium Potassium Chloride Carbon Dioxide Anion Gap BUN Creatinine Est Cr Clr Drug Dosing eGFR BUN/Creatinine Ratio Glucose POC Glucose 68 L* Lactate Calcium Procalcitonin PG Care Time/CCT Total # of Minutes Spent Total Time Spent with Patient: Total time spent is greater than 50% in coordination of care (as documented) at patient's floor/unit and/or counseling patient: Coding Level of Care Code 10867 SUB INP/OBS CARE 235MIN Diagnoses Sepsis A41.9 Acute renal failure type: unspecified Sepsis acute organ dysfunction status: with acute organ dysfunction Sepsis type: sepsis due to unspecified organism Severe sepsis acute organ dysfunction type: acute renal failure Aortic stenosis I35.0 Mitral regurgitation I34.0 Renal mass N28.89 Irregular heart rhythm I49.9 Ambulatory dysfunction R26.2 Parkinson disease G20 Recurrent UTI (urinary tract infection) N39.0 Hypertension I10 Altered mental status R41.82 Altered mental status type: unspecified BPH w urinary obs/LUTS N40.1; N13.8 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 stage III I12.9; N18.30 Dementia F03.90 (1) Sepsis Acute renal failure type: unspecified Sepsis acute organ dysfunction status: with acute organ dysfunction Sepsis type: sepsis due to unspecified organism Severe sepsis acute organ dysfunction type: acute renal failure (10) Altered mental status Altered mental status type: unspecified Qualified Code(s): R41.82 - Altered mental status, unspecified
[2024-06-09] MEDS: D5W AND NSS 1,000 ML IV SCH (23:35)
[2024-06-10] MEDS: VANCOMYCIN HCL 1,500 MG in SODIUM CHLORIDE 0.9% 500 ML IV SCH (05:48)
[2024-06-10 07:00] LABS: Basophils # (auto) 0.03 K/uL (0.00-0.20); Basophils % (auto) 0.6 %; Eosinophils # (auto) 0.18 K/uL (0.00-0.50); Eosinophils % (auto) 3.9 %; Hematocrit (blood only) 39.1 % (42.0-52.0); Hemoglobin 12.9 g/dl (14.0-18.0); Immature Granulocytes # (auto) 0.02 K/uL (0.01-0.20); Immature Granulocytes % (auto) 0.4 %; Lymphocytes # (auto) 0.54 K/uL (1.20-3.40); Lymphocytes % (auto) 11.6 %; Mean Corpuscular Hemoglobin 30.9 pg (25.0-34.0); Mean Corpuscular Volume 93.8 fL (80.0-100.0); Mean Platelet Volume 10.1 fL (9.4-12.4); Monocytes # (auto) 0.78 K/uL (0.11-0.59); Monocytes % (auto) 16.8 %; Neutrophils % (auto) 66.7 %; Platelet Count 138 K/uL (130-400); RDW Coefficient of Variation 13.4 % (11.5-14.5); RDW Standard Deviation 45.9 fL (36.4-46.3); Red Blood Count 4.17 M/uL (4.70-6.10); White Blood Count 4.65 K/ul (4.8-10.8)
[2024-06-10 07:38] LABS: BUN Creatinine Ratio 9.9 (10-20); Calcium 8.9 mg/dl (8.6-10.3); Creatinine Clr Calc Pharmacy 57.9 ml/min; Potassium 4.2 mmol/L (3.5-5.1)
--- NOTE | 2024-06-10 17:53 | Hospitalist Progress Note ---
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 as well as dysphagia to solids and liquids, renal mass described as "lobular partially exophytic heterogeneously enhancing mass within the superior pole of the right kidney posteriorly adjacent to several cysts which measures approximately 3.0 x 4.0 x 3.4 cm, generally unchanged from the prior study and also similar in appearance dating back to the 07/26/2022 exam" (as reported on 03/23/2024 CT abd/pelvis with/without IV contrast), hyperlipidemia, HTN, "irregular heart rhythm", 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 Patient was subsequently admitted to the inpatient hospitalist service @ [facility] on 06/07/2024, after becoming hypotensive, tachycardic and febrile in [facility] with acute urinary retention with pre-existing, indwelling thurston catheter. Patient had approximately 800 cc of retained urine with thurston not draining any urine. Subsequently, Urology Service of Dr. Keshawn Jin was able to remove the pre- existing, indwelling thurston under pressure (06/06/2024, 10:15pm) in [facility]. Initially, the plan was to discharge patient back to [facility] on 06/07/2024, but the patient became febrile with chills. Patient was subsequently admitted to the inpatient hospitalist service @ [facility] on 06/07/2024 with the following diagnoses: 1. Sepsis due to catheter-associated UTI with hematogenous dissemination of MRSA and ceftriaxone-resistant Proteus mirabilis (e.g., MRSA bacteremia as noted on 06/06/2024, 11:54pm blood culture and on 06/07/2024, 1:31am blood culture; Proteus mirabilis bacteremia as noted on 06/06/2024, 11:54pm blood culture). 2. Acute toxic metabolic encephalopathy, due to #1 above. 3. Acute hypoglycemia with admission glucose 82 mg/dL (06/07/2024, 8:31pm), due to #1 above. #Sepsis due to catheter-associated UTI/acute toxic metabolic encephalopathy - suspect urinary source given proximity of thurston manipulation - CXR shows mild blunting of left costophrenic angle, likely due to pleural ef fusion / thickening, ?opacification in left lower lung zone (overlying soft tissue shadow vs infection) - UA: >50 wbc, >20 RBC (in the setting of forced thurston removal), 6-10 epithelial cells, 4+ bacteria - cf., patient has had multiple UTIs in the last year with significant antibiotic resistance patterns - patient was initially started on daptomycin 600mg IV daily x 2 doses (06/07/2024, 4:16am; 06/08/2024, 3:55am), then zosyn 4.5g IV x 1 dose (06/07/2024, 4:19am), then zosyn 4.5g IV q8 x 4 doses (06/07/2024, 9:43am; 06/07/2024, 5:00pm; 06/08/2024, 1:53am; 06/08/2024, 9:27am), then ceftriaxone 2mg IV daily (06/07/2024, 1:43am; 06/08/2024, 6:36pm) as patient's WBC has declined to normal from 15.82 (06/07/2024, 6:41am) to 8.79 (06/08/2024, 6:14am); check repeat WBC w/diff in the 06/11/2024 am. - lactate subsequently declined to normal from 2.6 mmol/L (06/07/2024, 1:34am) to 1.3 mmol/L (06/07/2024, 4:26am)(06/08/2024, 9:32am) to 1.1 mmol/L (06/09/2024, 7:29am) on ceftriaxone 2g IV daily; check repeat lactic acid in the 06/11/2024 am. - procalcitonin initially increased from 3.03 ng/mL (06/07/2024, 6:41am) to 3.28 ng/mL (06/08/2024, 6:14am), before declining to 1.85 ng/mL (06/09/2024, 7:29am) on ceftriaxone 2g IV daily; check repeat procalcitonin in the 06/10/2024 am. Based on the declining lactate and procalcitonin level trends while patient received monotherapy utilizing ceftriaxone 2g IV daily x 4 doses, I am not certain if patient actually suffers from MRSA bacteremia as ceftriaxone has no activity against MRSA. In addition, ceftriaxone has no activity against ceftriaxone-resistant Proteus mirabilis (e.g., bacteremia as noted on 06/06/2024, 11:54pm blood culture). Subsequently, I opted to D/C ceftriaxone 2g IV daily on 06/09/2024, before patient could receive a dose of ceftriaxone 2g IV daily on 06/09/2024, 9:00pm. In its place, I started patient on vancomycin 2g IV x 1 dose (06/09/2024, 11:11am), followed by vancomycin 1.5g IV daily (06/10/2024, 5:00am). I also started patient on cefepime 2g IV q12 (06/09/2024, 11:02am). I will check vitals, genito-urinary exam, WBC w/diff, lactic acid, procalcitonin, and repeat blood cultures (to be drawn on 06/10/2024 am) in the 06/11/2024 am. #Acute hypoglycemia with admission glucose 82 mg/dL (06/07/2024, 8:31pm), RESOLVED, due to #1 above. Despite multiple attempts to treat patient's acute hypoglycemia with apple juice, patient remains persistently hypoglycemic: cf., glucose 71 mg/dL (06/08/2024, 12:10pm). cf., glucose 79 mg/dL (06/08/2024, 2:02pm). cf., glucose 68 mg/dL (06/08/2024, 6:00pm). cf., glucose 67 mg/dL (06/08/2024, 6:01pm). cf., glucose 52 mg/dL (06/08/2024, 7:03pm). cf., glucose 62 mg/dL (06/08/2024, 7:04pm). Consequently, I started patient on 1 liter of 0.9% D5-0.9% NS @ 76 mL/hr (06/08/2024, 7:15pm), based on a delivery rate of 1 mL of D5-0.9% NS per kg of body weight per hour, and a body weight of 76.2 kg. Subsequently, patient's glucose levels have started to increase: cf., glucose 76 mg/dL (06/08/2024, 7:34pm). cf., glucose 109 mg/dL (06/08/2024, 8:46pm). cf., glucose 118 mg/dL (06/09/2024, 7:29am). Subsequently, I started patient on 1 liter of 0.9% D5-0.9% NS @ 78 mL/hr (06/09/2024, 9:22am), based on a delivery rate of 1 mL of D5-0.9% NS per kg of body weight per hour, and a body weight of 77.7 kg. Subsequently, patient continues to undergo POC glucose q6h while in [facility]. cf., glucose 114 mg/dL (06/10/2024, 6:37am). #BPH w/LUTS/Renal Mass/CKD-III - 3-way thurston in for possible CBI given traumatic thurston removal, reddish urine but no clots - Flush as needed - Renal mass being followed by urology - Cr essentially at baseline - Continue finasteride when tolerating PO #Irregular heat rhythm/afib/MR/ - Does not appear to be on AC - Continue metoprolol, ASA once pt is able to take PO - Monitor volume status #Ambulatory Dysfunction - PT/OT eval and treat - Uses assistive devices at baseline - fall precautions #Parkinson's Disease with dementia - cont Sinemet when pt is able to tolerate PO - keep NPO now given AMS - [facility] [employer] evaluation pending - aspiration precautions - delirium precautions (Raising blinds during the day, closing at night | Frequent re-orientation | Contact with family/friends | Explaining procedures/nursing care measures prior to physical contact | Correct any hearing and visual impairments_ Code status: DNR/DNI - reviewed POLST form provided by halfway DVT prophylaxis: SCDs, if no hematuria tomorrow, hep subq to be initiated Isolation: none Disposition: PCU 06/07: pt's and daughter / her at bedside 06/08: patient's , Joanna, at bedside, with Hospitalist Dr. Yosef Robertson 06/09: patient's , Joanna, and Palliative Care Ms. Joannasamantha Deluca, at bedside, AND patient's daughter, Physical Therapist Ms. Joanie Pace (in [place]) on teleconference at bedside, with Hospitalist Dr. Yosef Robertson, for 35 minutes, and all in agreement that patient will continue with parenteral antibiotics to ensure resolution of bacteremia before patient is discharged back to [facility], and that patient's , Joanna Davenport, will call up her 's health insurance company, [employer], to inquire about their Enhanced Community Care Management Program, which is analagous to an outpatient Palliative Care Service. 06/10: patient's , Joanna, at bedside, REVERSED her 's wishes and her position on NOT having undergo PEG insertion,and now wants to have a PEG inserted into patient--for nutrition, hydration, and to receive his home- scheduled carbidopa 25mg - levodopa 100mg PO qid, which the patient has not received while in [facility] since admission date 06/07/2024, as patient has failed multiple swallow trials. Hence, patient awaits PEG insertion in the 06/11/2024 am. Admission and Anticipated Discharge Date Admission Date: June 07, 2024 Subjective "I am ok." Review of Systems Constitutional: Negative for antecedent/coincident fevers, chills, diaphoresis, cough, wheeze, sore throat, hemoptysis, chest pains, palpitations, pleurisy, nausea, vomiting, diarrhea, abdominal pain, pelvic pain, hematemesis, hematochezia, melena, hematuria, dysuria, frequency, urgency, headaches, dizziness, lightheadedness, visual changes, hearing changes, falls, syncope, trauma, travel history, sick contacts, or food/drug ingestions novel or new. All other review of systems are reported as negative by the patient on 06/10/2024. Physical Exam Constitutional: General: Comfortable, coherent, cooperative. Wide awake and alert. Not confused, lethargic, or obtunded. Patient speaks in complete, fluent, and a rticulate sentences without pause, interruption, cough, or wheeze. HEENT: Normocephalic, atraumatic. Pupils equally round and reactive to light. Extra-ocular muscles intact. No nystagmus, gaze paresis, anisocoria, miosis, mydriasis, hyphema, scleral injection, conjunctivitis, or pterygium. No rhinorrhea or otorrhea. No pharyngeal discharge or erythema. Neck: Supple, no stridor, bruit, goiter, hepatojugular reflux. Jugular venous pressure is estimated to be 8 cm above the sternal angle of Joselo, which is estimated to be 5 cm above the level of the right atrium. Lymph: No anterior/posterior cervical, supraclavicular/infraclavicular, axillary, epitrochlear, or inguinal adenopathy. Chest: Symmetric rise and fall with respirations. Lungs: Clear to auscultation and percussion. No audible expiratory wheeze, egophony, pectoriloquy, increase in tactile fremitus, or flatness/dullness to percussion at the bases. Heart: RRR, S1 and S2 noted. No S3 or S4 summation gallop noted. No tripartite friction rub. Grade II/ early systolic murmur @ LLSB without radiation to the carotids, axilla, or back, and which remains invariant in regards to the respiratory cycle. Abdomen: Soft, non-tender, non-distended. No rebound, guarding, Dawn's sign, or organomegaly. Bowel sounds sounds auscultated in all 4 quadrants. Extremities: No clubbing, cyanosis, or edema. 2+ pedal pulses bilaterally. Skin: No decubitus ulcer, exanthem, or enanthem. Neurology: Alert and oriented to person, place, time, and situation. DTR+ and symmetric. 5/5 motor strength in all 4 extremities, both proximally and distally. No pronator drift. No facial droop. No tremors, tics, or myoclonus. Urology: + thurston with 350 cc of clear yellow urine. No urethral discharge. Psychiatry: No suicidal ideation. No homicidal ideation. Results & Data Results & Data Vital Signs (Past 12 Hours) Vital Signs Temp Pulse Pulse Resp BP Pulse Ox O2 Del Method 06/10/24 15:44 36.5 C 76 20 146/86 H 98 Room Air 06/10/24 15:14 72 06/10/24 12:01 36.6 C 62 20 160/82 H 98 Room Air 06/10/24 07:57 36.6 C 61 19 132/72 95 Room Air 06/10/24 07:40 63 Laboratory Results 06/10/24 13:06 Aerobic Blood Culture - Pending Blood Anaerobic Blood Culture - Pending 06/10/24 13:18 Aerobic Blood Culture - Pending Blood Anaerobic Blood Culture - Pending 06/07/24 16:57 Aerobic Blood Culture - Preliminary Blood No growth in Aerobic bottle after 48 hours. Anaerobic Blood Culture - Preliminary No growth in Anaerobic bottle after 48 hours. 06/07/24 16:57 Aerobic Blood Culture - Preliminary Blood No growth in Aerobic bottle after 48 hours. Anaerobic Blood Culture - Preliminary No growth in Anaerobic bottle after 48 hours. 06/10/24 06/10/24 06/10/24 12:06 06:37 05:58 WBC 4.65 L RBC 4.17 L Hgb 12.9 L Hct 39.1 L MCV 93.8 MCH 30.9 MCHC 33.0 RDW Std Deviation 45.9 RDW Coeff of Ramy 13.4 Plt Count 138 MPV 10.1 Immature Gran % (Auto) 0.4 Neut % (Auto) 66.7 Lymph % (Auto) 11.6 [place] % (Auto) 16.8 Eos % (Auto) 3.9 Baso % (Auto) 0.6 Neut # (Auto) 3.10 Lymph # (Auto) 0.54 L [place] # (Auto) 0.78 H Eos # (Auto) 0.18 Baso # (Auto) 0.03 Immature Gran # (Auto) 0.02 Sodium 146 H Potassium 4.2 Chloride 116 H Carbon Dioxide 27 Anion Gap 3 BUN 9 Creatinine 0.91 Est Cr Clr Drug Dosing 57.9 eGFR 81.07 BUN/Creatinine Ratio 9.9 L Glucose 114 H POC Glucose 77 99 Lactate 1.5 Calcium 8.9 Procalcitonin 0.97 H 06/09/24 06/09/24 23:52 18:11 WBC RBC Hgb Hct MCV MCH MCHC RDW Std Deviation RDW Coeff of Ramy Plt Count MPV Immature Gran % (Auto) Neut % (Auto) Lymph % (Auto) [place] % (Auto) Eos % (Auto) Baso % (Auto) Neut # (Auto) Lymph # (Auto) [place] # (Auto) Eos # (Auto) Baso # (Auto) Immature Gran # (Auto) Sodium Potassium Chloride Carbon Dioxide Anion Gap BUN Creatinine Est Cr Clr Drug Dosing eGFR BUN/Creatinine Ratio Glucose POC Glucose 95 88 Lactate Calcium Procalcitonin PG Care Time/CCT Total # of Minutes Spent Total Time Spent with Patient: Total time spent is greater than 50% in coordination of care (as documented) at patient's floor/unit and/or counseling patient: Coding Level of Care Code 27028 SUB INP/OBS CARE 2/35MIN Diagnoses Sepsis A41.9 Acute renal failure type: unspecified Sepsis acute organ dysfunction status: with acute organ dysfunction Sepsis type: sepsis due to unspecified organism Severe sepsis acute organ dysfunction type: acute renal failure Aortic stenosis I35.0 Mitral regurgitation I34.0 Renal mass N28.89 Irregular heart rhythm I49.9 Ambulatory dysfunction R26.2 Parkinson disease G20 Recurrent UTI (urinary tract infection) N39.0 Hypertension I10 Altered mental status R41.82 Altered mental status type: unspecified BPH w urinary obs/LUTS N40.1; N13.8 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 stage III I12.9; N18.30 Dementia F03.90 (1) Sepsis Acute renal failure type: unspecified Sepsis acute organ dysfunction status: with acute organ dysfunction Sepsis type: sepsis due to unspecified organism Severe sepsis acute organ dysfunction type: acute renal failure (10) Altered mental status Altered mental status type: unspecified Qualified Code(s): R41.82 - Altered mental status, unspecified
[2024-06-11 05:18] LABS: Basophils # (auto) 0.01 K/uL (0.00-0.20); Basophils % (auto) 0.2 %; Eosinophils # (auto) 0.22 K/uL (0.00-0.50); Eosinophils % (auto) 4.8 %; Hematocrit (blood only) 37.8 % (42.0-52.0); Hemoglobin 12.6 g/dl (14.0-18.0); Immature Granulocytes # (auto) 0.02 K/uL (0.01-0.20); Immature Granulocytes % (auto) 0.4 %; Lymphocytes # (auto) 0.56 K/uL (1.20-3.40); Lymphocytes % (auto) 12.1 %; Mean Corpuscular Hemoglobin 30.7 pg (25.0-34.0); Mean Corpuscular Hgb Conc 33.3 g/dL (32.0-36.0); Mean Corpuscular Volume 92.2 fL (80.0-100.0); Mean Platelet Volume 10.1 fL (9.4-12.4); Monocytes # (auto) 0.63 K/uL (0.11-0.59); Monocytes % (auto) 13.6 %; Neutrophils # (auto) 3.18 K/uL (1.40-6.50); Neutrophils % (auto) 68.9 %; Platelet Count 139 K/uL (130-400); RDW Coefficient of Variation 13.2 % (11.5-14.5); RDW Standard Deviation 45.1 fL (36.4-46.3); White Blood Count 4.62 K/ul (4.8-10.8)
[2024-06-11] MEDS: VANCOMYCIN LEVEL ONE (05:19)
[2024-06-11 05:33] LABS: BUN Creatinine Ratio 8.6 (10-20); Calcium 8.8 mg/dl (8.6-10.3); Creatinine Clr Calc Pharmacy 65.1 ml/min; Potassium 3.3 mmol/L (3.5-5.1)
[2024-06-11] MEDS: POTASSIUM CHLORIDE / WTR 10 MEQ/100 ML PLCT IV SCH (09:25)
--- NOTE | 2024-06-11 10:22 | Gastrointestinal Consultation ---
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 GI was asked to evaluate for PEG placement. I called Dori at 10:15 and she states she no longer desires to move forward with PEG placement as she found some paperwork where Onel had requested again PEG placement. I asked her if she would like me to discuss with her what an EGD w/ PEG placement is. She state that she is not interested in hearing more at this time. I advised that if their wishes/desires in his care changed that we were happy to attempt EGD w/ PEG placement. For now, she wants to honor his wishes and avoid PEG placement. Will sign off. Recall as needed. I spent a total of 60 minutes on the date of service in review of patient's record, and previously obtained information in person and appropriate medical visit, discussion and education of plan, with patient and/or caregiver, placing orders for tests/referral/procedures as medically necessary and documentation of pertinent clinical information in patient's medical records for their visit today. Supervising Physician Co-Signing Physician Notes I saw and examined this patient with our nurse practitioner and agree with her assessment and plan. After discussion with family members they have decided against a PEG as this was the patient's wishes. Continue to try oral feedings as his swallowing study did not demonstrate aspiration. Call if family reconsiders. 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 GI was asked to evaluate for PEG placement. Pt was seen and evaluated, chart reviewed. Rios offers no concerns this AM. Denies abd pain. No family at bedside. There is nursing documentation from 09 stating "Pt's just called in and stated that she decided she did not want the pt to have a feeding tube." Video swallow 2024: ordered but not yet returned Allergies Allergy/AdvReac Type Severity Reaction Status Date / Time No Known Allergies Allergy Verified 11/07/23 12:27 Home Medications Medication Instructions Recorded Confirmed Type carbidopa 25 mg-levodopa 100 mg 1 tab PO QID 12/04/21 06/07/24 History tablet (Sinemet) cholecalciferol (vitamin D3) 50 50 mcg PO DAILY 12/04/21 06/07/24 History mcg (2,000 unit) capsule finasteride 5 mg tablet (Proscar) 5 mg PO QAM 12/04/21 06/07/24 History pantoprazole 40 mg tablet,delayed 40 mg PO 3XWK 12/04/21 06/07/24 History release cyanocobalamin (vitamin B-12) 1,000 mcg PO DAILY 01/21/22 06/07/24 History 1,000 mcg tablet (Vitamin B-12) bisacodyl 10 mg rectal suppository 10 mg NM Q48H PRN Constipation 10/06/22 06/07/24 History (Dulcolax (bisacodyl)) magnesium hydroxide 400 mg/5 mL 30 ml PO Q48H PRN Constipation 10/06/22 06/07/24 History oral suspension (Milk of Magnesia) sodium phosphates 19 gram-7 118 ml NM Q72H PRN Constipation 10/06/22 06/07/24 History gram/118 mL enema (Fleet Enema) metoprolol tartrate 25 mg tablet 12.5 mg (1/2 x 25 mg) PO BID #30 10/10/22 06/07/24 Rx tabs aspirin 81 mg tablet,delayed 81 mg PO DAILY 03/30/23 06/07/24 History release acetaminophen 650 mg rectal 650 mg NM Q4H PRN FEVER <99.5 09/05/23 06/07/24 History suppository carboxymethylcellulose sodium 0.5 1 drp OPB BID PRN Dry Eyes 09/05/23 06/07/24 History % eye drops (Refresh Tears) clotrimazole 1 % topical cream 1 applic topical BID PRN Rash 09/05/23 06/07/24 History (Lotrimin AF (clotrimazole)) hydrocortisone 1 % topical cream 1 applic topical BID PRN LEFT 09/05/23 06/07/24 History EAR/NOSE/OUTER EYE RASH [id number] 3.3 4 drp OTL DAILY PRN 09/05/23 06/07/24 History mg-3 mg-10 mg-0.5 mg/mL ear INFLAMMATION/ITCHING drops,susp selenium sulfide 1 % shampoo 1 applic topical 2XWK 09/05/23 06/07/24 History (Selsun Blue) polyethylene glycol 3350 17 17 g PO DAILY #0 grams 09/11/23 06/07/24 Rx gram/dose oral powder (Miralax) sennosides 8.6 mg tablet (senna) 17.2 mg (2 x 8.6 mg) PO DAILY #0 09/11/23 06/07/24 Rx tabs Patient History Medical History Dementia Lab test negative for COVID-19 virus Acute dehydration Weakness Resides in residential facility Dysphonia Dysarthria and anarthria 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 stage III Dysphagia Other abnormalities of gait and mobility Weakness Muscle spasm of back Hyperlipidemia Diverticulosis of large intestine without perforation or abscess without bleeding History of blood clots Poor historian Hearing deficit Hypertension Surgical History History of colonoscopy Status post Mohs surgery History of knee surgery History of eye surgery Family History Other Adopted Social History Smoking Status: Never smoker Second Hand Exposure: No; Do You Dip or Chew Tobacco: No; Hx Alcohol Use: No Hx Substance Use: No Preferred Language: Syriac Communication Ability: Impaired University Professor Required: No Beliefs That Will Affect Care: None marital status: Current Living Situation: Care Home Current Living Situation Comment: [employer] current occupational status: retired Feels Safe at Home: Yes Assistive Devices: Wheelchair Review of Systems Review of Systems: All systems reviewed & are unremarkable except as noted in HPI & below Physical Exam Constitutional: well developed and well nourished In no acute distress, awake in bed. Respiratory: normal respiratory effort Cardiovascular: Rate/Rhythm: regular rate and regular rhythm Gastrointestinal (Abdomen): normal bowel sounds, soft, nontender, no hepatosplenomegaly Skin: no rashes, warm and dry Results & Data Vital Signs (Past 12 Hours) Vital Signs Temp Pulse Resp BP Pulse Ox Pulse Ox O2 Del Method 06/11/24 07:03 97.5 F L 58 L 18 151/85 H 93 Room Air 06/11/24 05:00 94 06/11/24 02:36 98.6 F 67 18 140/76 96 Room Air 06/10/24 22:49 98.2 F 61 18 131/76 97 Room Air Laboratory Results 06/11/24 06/11/24 06/11/24 Range/Units 06:09 04:55 00:04 WBC 4.62 L (4.8-10.8) K/ul RBC 4.10 L (4.70-6.10) M/uL Hgb 12.6 L (14.0-18.0) g/dl Hct 37.8 L (42.0-52.0) % MCV 92.2 (80.0-100.0) fL MCH 30.7 (25.0-34.0) pg MCHC 33.3 (32.0-36.0) g/dL RDW Std Deviation 45.1 (36.4-46.3) fL RDW Coeff of Ramy 13.2 (11.5-14.5) % Plt Count 139 (130-400) K/uL MPV 10.1 (9.4-12.4) fL Immature Gran % (Auto) 0.4 % Neut % (Auto) 68.9 % Lymph % (Auto) 12.1 % [place] % (Auto) 13.6 % Eos % (Auto) 4.8 % Baso % (Auto) 0.2 % Neut # (Auto) 3.18 (1.40-6.50) K/uL Lymph # (Auto) 0.56 L (1.20-3.40) K/uL [place] # (Auto) 0.63 H (0.11-0.59) K/uL Eos # (Auto) 0.22 (0.00-0.50) K/uL Baso # (Auto) 0.01 (0.00-0.20) K/uL Immature Gran # (Auto) 0.02 (0.01-0.20) K/uL Sodium 140 (136-145) mmol/L Potassium 3.3 L D (3.5-5.1) mmol/L Chloride 115 H (98-107) mmol/L Carbon Dioxide 24 (21-32) mmol/L Anion Gap 1 L (3-11) BUN 7 (6-23) mg/dl Creatinine 0.81 (0.6-1.4) mg/dl Est Cr Clr Drug Dosing 65.1 ml/min eGFR 84.80 BUN/Creatinine Ratio 8.6 L (10-20) Glucose 123 H (70-99(Fasting)) mg/dl POC Glucose 106 H 122 H (70-99) mg/dl Lactate 0.8 (0.4-2.0) mmol/L Calcium 8.8 (8.6-10.3) mg/dl Procalcitonin 0.55 H (0-0.5) ng/ml Random Vancomycin 10.6 (10-20) mcg/ml 06/10/24 06/10/24 Range/Units 18:14 12:06 WBC (4.8-10.8) K/ul RBC (4.70-6.10) M/uL Hgb (14.0-18.0) g/dl Hct (42.0-52.0) % MCV (80.0-100.0) fL MCH (25.0-34.0) pg MCHC (32.0-36.0) g/dL RDW Std Deviation (36.4-46.3) fL RDW Coeff of Ramy (11.5-14.5) % Plt Count (130-400) K/uL MPV (9.4-12.4) fL Immature Gran % (Auto) % Neut % (Auto) % Lymph % (Auto) % [place] % (Auto) % Eos % (Auto) % Baso % (Auto) % Neut # (Auto) (1.40-6.50) K/uL Lymph # (Auto) (1.20-3.40) K/uL [place] # (Auto) (0.11-0.59) K/uL Eos # (Auto) (0.00-0.50) K/uL Baso # (Auto) (0.00-0.20) K/uL Immature Gran # (Auto) (0.01-0.20) K/uL Sodium (136-145) mmol/L Potassium (3.5-5.1) mmol/L Chloride (98-107) mmol/L Carbon Dioxide (21-32) mmol/L Anion Gap (3-11) BUN (6-23) mg/dl Creatinine (0.6-1.4) mg/dl Est Cr Clr Drug Dosing ml/min eGFR BUN/Creatinine Ratio (10-20) Glucose (70-99(Fasting)) mg/dl POC Glucose 71 77 (70-99) mg/dl Lactate (0.4-2.0) mmol/L Calcium (8.6-10.3) mg/dl Procalcitonin (0-0.5) ng/ml Random Vancomycin (10-20) mcg/ml PG Care Time/CCT Total # of Minutes Spent Total Time Spent with Patient: Total time spent is greater than 50% in coordination of care (as documented) at patient's floor/unit and/or counseling patient: Coding Level of Care Code 84484 INT INP/OBS CARE 2/55MIN Diagnoses Dysphagia R13.10
--- NOTE | 2024-06-11 10:56 | Pharmacy Report ---
Pharmacy PK ABX Note - Date of Service June 11, 2024 - Assessment and Plan Assessment 88 year old M receiving vancomycin and cefepime for treatment of MRSA bacteremia secondary to CAUTI, previously receiving daptomycin. Pertinent microbiologic data includes: Positive MRSA Nasal Swab, blood cultures growing MRSA (2 of 2), Proteus vulgaris (1 of 2). Patient presents from [facility] due to non-draining thurston. He has a history of BPH/LUTS/renal mass and history of MRSA UTI. Baseline SCr ~1-1.1 mg/dL, current SCr of 0.81 mg/dL - has been receiving maintenance IV fluids. Day # 3 of antimicrobial therapy. Plan Vancomycin * Current regimen: 1500 mg IV every 24 hours * Random level obtained 06/11/24 resulted as 10.6 mcg/mL. This is predicted to achieve target AUC/ROXANNA of 400-600 mg/L.hr * Predicted AUC at steady state: 480 mg/L.hr * Continue 1500 mg IV every 24 hours * Will repeat level in the next 48-72 hours if therapy is continued and/or change in patient clinical status Cefepime * 2 g IV q12h - appropriate dosed for indication/baseline renal function Pharmacy will continue to follow and will adjust dose/frequency as necessary. Thank you. Pharmacy has transitioned to AUC monitoring for vancomycin. AUC/ROXANNA is the pre ferred PK/PD target and is associated with decreased risk of nephrotoxicity compared to traditional trough targets.
--- NOTE | 2024-06-11 11:46 | Fluoroscopy Report ---
MODIFIED BARIUM SWALLOW CLINICAL HISTORY: r/o aspiration COMPARISON STUDY: None. FLUOROSCOPY TIME: 2.27 minutes. Ka,r: 10.4 mGy TECHNIQUE: A modified barium swallow was performed in conjunction with Speech Pathology. The patient ingested varying consistencies of barium containing material. Video fluoroscopy was performed. FINDINGS: Premature spillage was noted with thin liquids. However, no tracheal aspiration was identif ied with thin liquids by spoon or cup. There was no aspiration with nectar thick liquids, pudding con sistency or crackers and pudding consistencies. Prolonged mastication was noted. Liquid wash was requ ired following crackers in pudding consistency. IMPRESSION: 1. No tracheal aspiration identified. 2. Full recommendations by Speech pathology to follow. ACT 112: Negative or not required by law. Electronically signed by: Ez Merino M.D. 06/11/2024 11:44 AM
--- NOTE | 2024-06-11 17:41 | Hospitalist Progress Note ---
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 as well as dysphagia to solids and liquids, renal mass described as "lobular partially exophytic heterogeneously enhancing mass within the superior pole of the right kidney posteriorly adjacent to several cysts which measures approximately 3.0 x 4.0 x 3.4 cm, generally unchanged from the prior study and also similar in appearance dating back to the 07/26/2022 exam" (as reported on 03/23/2024 CT abd/pelvis with/without IV contrast), hyperlipidemia, HTN, "irregular heart rhythm", 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 Patient was subsequently admitted to the inpatient hospitalist service @ [facility] on 06/07/2024, after becoming hypotensive, tachycardic and febrile in [facility] with acute urinary retention with pre-existing, indwelling thurston catheter. Patient had approximately 800 cc of retained urine with thurston not draining any urine. Subsequently, Urology Service of Dr. Keshawn Jin was able to remove the pre- existing, indwelling thurston under pressure (06/06/2024, 10:15pm) in [facility]. Initially, the plan was to discharge patient back to [facility] on 06/07/2024, but the patient became febrile with chills. Patient was subsequently admitted to the inpatient hospitalist service @ [facility] on 06/07/2024 with the following diagnoses: 1. Sepsis due to catheter-associated UTI with hematogenous dissemination of MRSA and ceftriaxone-resistant Proteus mirabilis (e.g., MRSA bacteremia as noted on 06/06/2024, 11:54pm blood culture and on 06/07/2024, 1:31am blood culture; Proteus mirabilis bacteremia as noted on 06/06/2024, 11:54pm blood culture). 2. Acute toxic metabolic encephalopathy, due to #1 above. 3. Acute hypoglycemia with admission glucose 82 mg/dL (06/07/2024, 8:31pm), due to #1 above. #Sepsis due to catheter-associated UTI/acute toxic metabolic encephalopathy - suspect urinary source given proximity of thurston manipulation - CXR shows mild blunting of left costophrenic angle, likely due to pleural ef fusion / thickening, ?opacification in left lower lung zone (overlying soft tissue shadow vs infection) - UA: >50 wbc, >20 RBC (in the setting of forced thurston removal), 6-10 epithelial cells, 4+ bacteria - cf., patient has had multiple UTIs in the last year with significant antibiotic resistance patterns - patient was initially started on daptomycin 600mg IV daily x 2 doses (06/07/2024, 4:16am; 06/08/2024, 3:55am), then zosyn 4.5g IV x 1 dose (06/07/2024, 4:19am), then zosyn 4.5g IV q8 x 4 doses (06/07/2024, 9:43am; 06/07/2024, 5:00pm; 06/08/2024, 1:53am; 06/08/2024, 9:27am), then ceftriaxone 2mg IV daily (06/07/2024, 1:43am; 06/08/2024, 6:36pm) as patient's WBC has declined to normal from 15.82 (06/07/2024, 6:41am) to 8.79 (06/08/2024, 6:14am); check repeat WBC w/diff in the 06/11/2024 am. - lactate subsequently declined to normal from 2.6 mmol/L (06/07/2024, 1:34am) to 1.3 mmol/L (06/07/2024, 4:26am)(06/08/2024, 9:32am) to 1.1 mmol/L (06/09/2024, 7:29am) on ceftriaxone 2g IV daily; check repeat lactic acid in the 06/11/2024 am. - procalcitonin initially increased from 3.03 ng/mL (06/07/2024, 6:41am) to 3.28 ng/mL (06/08/2024, 6:14am), before declining to 1.85 ng/mL (06/09/2024, 7:29am) on ceftriaxone 2g IV daily; check repeat procalcitonin in the 06/10/2024 am. Based on the declining lactate and procalcitonin level trends while patient received monotherapy utilizing ceftriaxone 2g IV daily x 4 doses, I am not certain if patient actually suffers from MRSA bacteremia as ceftriaxone has no activity against MRSA. In addition, ceftriaxone has no activity against ceftriaxone-resistant Proteus mirabilis (e.g., bacteremia as noted on 06/06/2024, 11:54pm blood culture). Subsequently, I opted to D/C ceftriaxone 2g IV daily on 06/09/2024, before patient could receive a dose of ceftriaxone 2g IV daily on 06/09/2024, 9:00pm. In its place, I started patient on vancomycin 2g IV x 1 dose (06/09/2024, 11:11am), followed by vancomycin 1.5g IV daily (06/10/2024, 5:00am). I also started patient on cefepime 2g IV q12 (06/09/2024, 11:02am). I will check vitals, genito-urinary exam, WBC w/diff, lactic acid, procalcitonin, and repeat blood cultures (to be drawn on 06/10/2024 am) in the 06/12/2024 am. #Acute hypoglycemia with admission glucose 82 mg/dL (06/07/2024, 8:31pm), RESOLVED, due to #1 above. Despite multiple attempts to treat patient's acute hypoglycemia with apple juice, patient remained persistently hypoglycemic: cf., glucose 71 mg/dL (06/08/2024, 12:10pm). cf., glucose 79 mg/dL (06/08/2024, 2:02pm). cf., glucose 68 mg/dL (06/08/2024, 6:00pm). cf., glucose 67 mg/dL (06/08/2024, 6:01pm). cf., glucose 52 mg/dL (06/08/2024, 7:03pm). cf., glucose 62 mg/dL (06/08/2024, 7:04pm). Consequently, I started patient on 1 liter of 0.9% D5-0.9% NS @ 76 mL/hr (06/08/2024, 7:15pm), based on a delivery rate of 1 mL of D5-0.9% NS per kg of body weight per hour, and a body weight of 76.2 kg. Subsequently, patient's glucose levels started to increase: cf., glucose 76 mg/dL (06/08/2024, 7:34pm). cf., glucose 109 mg/dL (06/08/2024, 8:46pm). cf., glucose 118 mg/dL (06/09/2024, 7:29am). Subsequently, I started patient on 1 liter of 0.9% D5-0.9% NS @ 78 mL/hr (06/09/2024, 9:22am), based on a delivery rate of 1 mL of D5-0.9% NS per kg of body weight per hour, and a body weight of 77.7 kg. Subsequently, patient continues to undergo POC glucose q6h while in [facility]. cf., glucose 114 mg/dL (06/10/2024, 6:37am). cf., glucose 123 mg/dL (06/11/2024, 4:55am). Hence, acute hypoglycemia has RESOLVED. #BPH w/LUTS/Renal Mass/CKD-III - 3-way thurston in for possible CBI given traumatic thurston removal, reddish urine but no clots - Flush as needed - Renal mass being followed by urology - Cr essentially at baseline - Continue finasteride when tolerating PO #Irregular heat rhythm/afib/MR/ - Does not appear to be on AC - Continue metoprolol, ASA once pt is able to take PO - Monitor volume status #Ambulatory Dysfunction - PT/OT eval and treat - Uses assistive devices at baseline - fall precautions #Parkinson's Disease with dementia - cont Sinemet when pt is able to tolerate PO - keep NPO now given AMS - [employer] evaluation pending - aspiration precautions - delirium precautions (Raising blinds during the day, closing at night | Frequent re-orientation | Contact with family/friends | Explaining procedures/nursing care measures prior to physical contact | Correct any hearing and visual impairments_ Code status: DNR/DNI - reviewed POLST form provided by senior care DVT prophylaxis: SCDs, if no hematuria tomorrow, hep subq to be initiated Isolation: none Disposition: PCU 06/07: pt's and daughter / her at bedside 06/08: patient's , Joanna, at bedside, with Hospitalist Dr. Yosef Robertson 06/09: patient's , Joanna, and Palliative Care Ms. Joanna Deluca, at bedside, AND patient's daughter, Physical Therapist Joanie Pace (in [place]) on teleconference at bedside, with Hospitalist Dr. Yosef Robertson, for 35 minutes, and all in agreement that patient will continue with parenteral antibiotics to ensure resolution of bacteremia before patient is discharged back to [facility], and that patient's , Joanna Davenport, will call up her 's health insurance company, [employer], to inquire about their Enhanced Community Care Management Program, which is analagous to an outpatient Palliative Care Service. 06/10: patient's , Joanna, has requested PEG insertion, which goes against patient's wishes NOT to have PEG inserted. 06/11: patient's , Joanna, has rescinded PEG insertion, in accordance with patient's wishes NOT to have PEG inserted. Patient subsequently underwent formal Swallow Service evaluation with video swallow with Ms. Nichole Villarreal on 06/11/2024, 11:40am, and which revealed "bolus head in pyriformis, moderate oral-stage dysphagia with NO penetration or aspiration during this study. The patient demonstrated adequate airway protection throughout the study despite some areas of incomplete hyolaryngeal ROM and lack of pharyngeal stripping wave." Ms. Villarreal subsequently recommended that patient be transitioned from NPO to Minced and Moist diet on 06/11/2024. Hence, I complied with Ms. Villarreal's request on 06/11/2024, 10:31am, commencing with the lunch meal on 06/11/2024. Stay tuned. 06/10: patient's , Joanna, at bedside, REVERSED her 's wishes and her position on NOT having undergo PEG insertion,and now wants to have a PEG inserted into patient--for nutrition, hydration, and to receive his home- scheduled carbidopa 25mg - levodopa 100mg PO qid, which the patient has not received while in [facility] since admission date 06/07/2024, as patient has failed multiple swallow trials. Hence, patient awaits PEG insertion in the 06/11/2024 am. Admission and Anticipated Discharge Date Admission Date: June 07, 2024 Subjective "I feel better. Eating today." Review of Systems Constitutional: Negative for antecedent/coincident fevers, chills, diaphoresis, cough, wheeze, sore throat, hemoptysis, chest pains, palpitations, pleurisy, nausea, vomiting, diarrhea, abdominal pain, pelvic pain, hematemesis, hematochezia, melena, hematuria, dysuria, frequency, urgency, headaches, dizziness, lightheadedness, visual changes, hearing changes, falls, syncope, trauma, travel history, sick contacts, or food/drug ingestions novel or new. All other review of systems are reported as negative by the patient on 06/11/2024. Physical Exam Constitutional: General: Comfortable, coherent, cooperative. Wide awake and alert. Not confused, lethargic, or obtunded. Patient speaks in complete, fluent, and articulate sentences without pause, interruption, cough, or wheeze. HEENT: Normocephalic, atraumatic. Pupils equally round and reactive to light. Extra-ocular muscles intact. No nystagmus, gaze paresis, anisocoria, miosis, mydriasis, hyphema, scleral injection, conjunctivitis, or pterygium. No rhinorrhea or otorrhea. No pharyngeal discharge or erythema. Neck: Supple, no stridor, bruit, goiter, hepatojugular reflux. Jugular venous pressure is estimated to be 8 cm above the sternal angle of Joselo, which is estimated to be 5 cm above the level of the right atrium. Lymph: No anterior/posterior cervical, supraclavicular/infraclavicular, axillary, epitrochlear, or inguinal adenopathy. Chest: Symmetric rise and fall with respirations. Lungs: Clear to auscultation and percussion. No audible expiratory wheeze, egophony, pectoriloquy, increase in tactile fremitus, or flatness/dullness to percussion at the bases. Heart: RRR, S1 and S2 noted. No S3 or S4 summation gallop noted. No tripartite friction rub. Grade II/ early systolic murmur @ LLSB without radiation to the carotids, axilla, or back, and which remains invariant in regards to the respiratory cycle. Abdomen: Soft, non-tender, non-distended. No rebound, guarding, Dawn's sign, or organomegaly. Bowel sounds sounds auscultated in all 4 quadrants. Extremities: No clubbing, cyanosis, or edema. 2+ pedal pulses bilaterally. Skin: No decubitus ulcer, exanthem, or enanthem. Neurology: Alert and oriented to person, place, time, and situation. DTR+ and symmetric. 5/5 motor strength in all 4 extremities, both proximally and distally. No pronator drift. No facial droop. No tremors, tics, or myoclonus. Urology: + thurston with 350 cc of clear yellow urine. No urethral discharge. Psychiatry: No suicidal ideation. No homicidal ideation. Results & Data Results & Data Vital Signs (Past 12 Hours) Vital Signs Temp Pulse Pulse Resp BP Pulse Ox O2 Del Method 06/11/24 16:57 36.4 C L 82 20 134/83 82 L Room Air 06/11/24 14:36 91 H 06/11/24 10:49 36.5 C 65 18 129/81 96 Room Air 06/11/24 07:03 36.4 C L 58 L 18 151/85 H 93 Room Air Laboratory Results 06/10/24 13:06 Aerobic Blood Culture - Preliminary Blood No growth in Aerobic bottle after 24 hours. Anaerobic Blood Culture - Pending 06/10/24 13:18 Aerobic Blood Culture - Preliminary Blood No growth in Aerobic bottle after 24 hours. Anaerobic Blood Culture - Preliminary No growth in Anaerobic bottle after 24 hours. 06/11/24 06/11/24 06/11/24 16:22 11:18 06:09 WBC RBC Hgb Hct MCV MCH MCHC RDW Std Deviation RDW Coeff of Ramy Plt Count MPV Immature Gran % (Auto) Neut % (Auto) Lymph % (Auto) Noble % (Auto) Eos % (Auto) Baso % (Auto) Neut # (Auto) Lymph # (Auto) Noble # (Auto) Eos # (Auto) Baso # (Auto) Immature Gran # (Auto) Sodium Potassium Chloride Carbon Dioxide Anion Gap BUN Creatinine Est Cr Clr Drug Dosing eGFR BUN/Creatinine Ratio Glucose POC Glucose 79 121 H 106 H Lactate Calcium Procalcitonin Random Vancomycin 06/11/24 06/11/24 06/10/24 04:55 00:04 18:14 WBC 4.62 L RBC 4.10 L Hgb 12.6 L Hct 37.8 L MCV 92.2 MCH 30.7 MCHC 33.3 RDW Std Deviation 45.1 RDW Coeff of Ramy 13.2 Plt Count 139 MPV 10.1 Immature Gran % (Auto) 0.4 Neut % (Auto) 68.9 Lymph % (Auto) 12.1 Noble % (Auto) 13.6 Eos % (Auto) 4.8 Baso % (Auto) 0.2 Neut # (Auto) 3.18 Lymph # (Auto) 0.56 L Noble # (Auto) 0.63 H Eos # (Auto) 0.22 Baso # (Auto) 0.01 Immature Gran # (Auto) 0.02 Sodium 140 Potassium 3.3 L D Chloride 115 H Carbon Dioxide 24 Anion Gap 1 L BUN 7 Creatinine 0.81 Est Cr Clr Drug Dosing 65.1 eGFR 84.80 BUN/Creatinine Ratio 8.6 L Glucose 123 H POC Glucose 122 H 71 Lactate 0.8 Calcium 8.8 Procalcitonin 0.55 H Random Vancomycin 10.6 PG Care Time/CCT Total # of Minutes Spent Total Time Spent with Patient: Total time spent is greater than 50% in coordination of care (as documented) at patient's floor/unit and/or counseling patient: Coding Level of Care Code 17965 SUB INP/OBS CARE 235MIN Diagnoses Sepsis A41.9 Acute renal failure type: unspecified Sepsis acute organ dysfunction status: with acute organ dysfunction Sepsis type: sepsis due to unspecified organism Severe sepsis acute organ dysfunction type: acute renal failure Aortic stenosis I35.0 Mitral regurgitation I34.0 Renal mass N28.89 Irregular heart rhythm I49.9 Ambulatory dysfunction R26.2 Parkinson disease G20 Recurrent UTI (urinary tract infection) N39.0 Hypertension I10 Altered mental status R41.82 Altered mental status type: unspecified BPH w urinary obs/LUTS N40.1; N13.8 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 stage III I12.9; N18.30 Dementia F03.90 (1) Sepsis Acute renal failure type: unspecified Sepsis acute organ dysfunction status: with acute organ dysfunction Sepsis type: sepsis due to unspecified organism Severe sepsis acute organ dysfunction type: acute renal failure (10) Altered mental status Altered mental status type: unspecified Qualified Code(s): R41.82 - Altered mental status, unspecified
[2024-06-12 07:28] LABS: Basophils # (auto) 0.02 K/uL (0.00-0.20); Basophils % (auto) 0.4 %; Hematocrit (blood only) 38.7 % (42.0-52.0); Hemoglobin 12.9 g/dl (14.0-18.0); Immature Granulocytes # (auto) 0.05 K/uL (0.01-0.20); Lymphocytes # (auto) 0.71 K/uL (1.20-3.40); Lymphocytes % (auto) 14.2 %; Mean Corpuscular Hgb Conc 33.3 g/dL (32.0-36.0); Mean Platelet Volume 10.6 fL (9.4-12.4); Monocytes # (auto) 0.52 K/uL (0.11-0.59); Monocytes % (auto) 10.4 %; Platelet Count 149 K/uL (130-400); RDW Coefficient of Variation 13.2 % (11.5-14.5); RDW Standard Deviation 44.7 fL (36.4-46.3); Red Blood Count 4.16 M/uL (4.70-6.10)
[2024-06-12 07:45] LABS: BUN Creatinine Ratio 11.6 (10-20); Creatinine Clr Calc Pharmacy 55.5 ml/min; Potassium 3.8 mmol/L (3.5-5.1)
--- NOTE | 2024-06-12 15:36 | Hospitalist Progress Note ---
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 as well as dysphagia to solids and liquids, renal mass described as "lobular partially exophytic heterogeneously enhancing mass within the superior pole of the right kidney posteriorly adjacent to several cysts which measures approximately 3.0 x 4.0 x 3.4 cm, generally unchanged from the prior study and also similar in appearance dating back to the 07/26/2022 exam" (as reported on 03/23/2024 CT abd/pelvis with/without IV contrast), hyperlipidemia, HTN, "irregular heart rhythm", myxomatous mitral valve with bileaflet prolapse and mild mitral regurgitation (as noted on 10/07/2022 TTE), ambulatory dysfunction, and chronic urinary retention with indwelling thurston catheter in situ for more than 1 month without exchange/replacement with new thurston catheter, who came to [facility] ER on 06/07/2024 with urinary retention. Patient was subsequently admitted to the inpatient hospitalist service @ [facility] on 06/07/2024, after becoming hypotensive, tachycardic and febrile in [facility] ER with acute urinary retention with pre-existing, indwelling thurston catheter. Patient had approximately 800 cc of retained urine with thurston not draining any urine. Subsequently, Urology Service of Dr. Keshawn Jin was able to remove the pre- existing, indwelling thurston under pressure (06/06/2024, 10:15pm) in [facility] ER. Initially, the plan was to discharge patient back to [facility] on 06/07/2024, but the patient became febrile with chills. Patient was subsequently admitted to the inpatient hospitalist service @ [facility] on 06/07/2024 with the following diagnoses: 1. Sepsis due to catheter-associated UTI with hematogenous dissemination of MRSA and ceftriaxone-resistant Proteus mirabilis (e.g., MRSA bacteremia as noted on 06/06/2024, 11:54pm blood culture and on 06/07/2024, 1:31am blood culture; Proteus mirabilis bacteremia as noted on 06/06/2024, 11:54pm blood culture). 2. Acute toxic metabolic encephalopathy, due to #1 above. 3. Acute hypoglycemia with admission glucose 82 mg/dL (06/07/2024, 8:31pm), due to #1 above. #Sepsis due to catheter-associated UTI/acute toxic metabolic encephalopathy - suspect urinary source given proximity of thurston manipulation - CXR shows mild blunting of left costophrenic angle, likely due to pleural ef fusion / thickening, ?opacification in left lower lung zone (overlying soft tissue shadow vs infection) - UA: >50 wbc, >20 RBC (in the setting of forced thurston removal), 6-10 epithelial cells, 4+ bacteria - cf., patient has had multiple UTIs in the last year with significant antibiotic resistance patterns - patient was initially started on daptomycin 600mg IV daily x 2 doses (06/07/2024, 4:16am; 06/08/2024, 3:55am), then zosyn 4.5g IV x 1 dose (06/07/2024, 4:19am), then zosyn 4.5g IV q8 x 4 doses (06/07/2024, 9:43am; 06/07/2024, 5:00pm; 06/08/2024, 1:53am; 06/08/2024, 9:27am), then ceftriaxone 2mg IV daily (06/07/2024, 1:43am; 06/08/2024, 6:36pm) as patient's WBC has declined to normal from 15.82 (06/07/2024, 6:41am) to 8.79 (06/08/2024, 6:14am); check repeat WBC w/diff in the 06/13/2024 am. - lactate subsequently declined to normal from 2.6 mmol/L (06/07/2024, 1:34am) to 1.3 mmol/L (06/07/2024, 4:26am)(06/08/2024, 9:32am) to 1.1 mmol/L (06/09/2024, 7:29am) on ceftriaxone 2g IV daily; check repeat lactic acid in the 06/11/2024 am. - procalcitonin initially increased from 3.03 ng/mL (06/07/2024, 6:41am) to 3.28 ng/mL (06/08/2024, 6:14am), before declining to 1.85 ng/mL (06/09/2024, 7:29am) on ceftriaxone 2g IV daily; check repeat procalcitonin in the 06/13/2024 am. Based on the declining lactate and procalcitonin level trends while patient received monotherapy utilizing ceftriaxone 2g IV daily x 4 doses, I am not certain if patient actually suffers from MRSA bacteremia as ceftriaxone has no activity against MRSA. In addition, ceftriaxone has no activity against ceftriaxone-resistant Proteus mirabilis (e.g., bacteremia as noted on 06/06/2024, 11:54pm blood culture). Subsequently, I opted to D/C ceftriaxone 2g IV daily on 06/09/2024, before patient could receive a dose of ceftriaxone 2g IV daily on 06/09/2024, 9:00pm. In its place, I started patient on vancomycin 2g IV x 1 dose (06/09/2024, 11:11am), followed by vancomycin 1.5g IV daily (06/10/2024, 5:00am). I also started patient on cefepime 2g IV q12 (06/09/2024, 11:02am). I will check vitals, genito-urinary exam, WBC w/diff, lactic acid, procalcitonin, and repeat blood cultures (to be drawn on 06/10/2024 am) in the 06/13/2024 am. #Acute hypoglycemia with admission glucose 82 mg/dL (06/07/2024, 8:31pm), RESOLVED, due to #1 above. Despite multiple attempts to treat patient's acute hypoglycemia with apple juice, patient remained persistently hypoglycemic: cf., glucose 71 mg/dL (06/08/2024, 12:10pm). cf., glucose 79 mg/dL (06/08/2024, 2:02pm). cf., glucose 68 mg/dL (06/08/2024, 6:00pm). cf., glucose 67 mg/dL (06/08/2024, 6:01pm). cf., glucose 52 mg/dL (06/08/2024, 7:03pm). cf., glucose 62 mg/dL (06/08/2024, 7:04pm). Consequently, I started patient on 1 liter of 0.9% D5-0.9% NS @ 76 mL/hr (06/08/2024, 7:15pm), based on a delivery rate of 1 mL of D5-0.9% NS per kg of body weight per hour, and a body weight of 76.2 kg. Subsequently, patient's glucose levels started to increase: cf., glucose 76 mg/dL (06/08/2024, 7:34pm). cf., glucose 109 mg/dL (06/08/2024, 8:46pm). cf., glucose 118 mg/dL (06/09/2024, 7:29am). Subsequently, I started patient on 1 liter of 0.9% D5-0.9% NS @ 78 mL/hr (06/09/2024, 9:22am), based on a delivery rate of 1 mL of D5-0.9% NS per kg of body weight per hour, and a body weight of 77.7 kg. Subsequently, patient continues to undergo POC glucose q6h while in [facility]. cf., glucose 114 mg/dL (06/10/2024, 6:37am). cf., glucose 123 mg/dL (06/11/2024, 4:55am). cf., glucose 90 mg/dL (06/12/2024, 11:31am). Hence, acute hypoglycemia has RESOLVED. #BPH w/LUTS/Renal Mass/CKD-III - 3-way thurston in for possible CBI given traumatic thurston removal, reddish urine but no clots; thurston catheter removed on 06/11/2024 - Flush as needed - Renal mass being followed by urology - creatinine at baseline - Continue finasteride when tolerating PO #Irregular heat rhythm/afib/MR/ - Does not appear to be on AC - Continue metoprolol, ASA once pt is able to take PO - Monitor volume status #Ambulatory Dysfunction - PT/OT eval and treat - Uses assistive devices at baseline - fall precautions #Parkinson's Disease with dementia - restart Sinemet 25/100mg PO qid (06/12/2024, 3:32pm). - patient tolerates minced and moist diet very well - [employer] evaluation (06/11/2024, 11:40am) which revealed "bolus head in pyriformis, moderate oral-stage dysphagia with NO penetration or aspiration during this study. The patient demonstrated adequate airway protection throughout the study despite some areas of incomplete hyolaryngeal ROM and lack of pharyngeal stripping wave." Ms. Villarreal subsequently recommended that patient be transitioned from NPO to Minced and Moist diet on 06/11/2024. Hence, I complied with Ms. Villarreal's request on 06/11/2024, 10:31am, commencing with the lunch meal on 06/11/2024. Stay tuned. - aspiration precautions - delirium precautions (Raising blinds during the day, closing at night | Frequent re-orientation | Contact with family/friends | Explaining procedures/nursing care measures prior to physical contact | Correct any hearing and visual impairments_ Code status: DNR/DNI - reviewed POLST form provided by senior care DVT prophylaxis: SCDs, if no hematuria tomorrow, hep subq to be initiated Isolation: none Disposition: PCU 06/07: pt's and daughter / her at bedside 06/08: patient's , Joanna, at bedside, with Hospitalist Dr. Yosef Robertson 06/09: patient's , Joanna, and Palliative Care Ms. Joanna Deluca, at bedside, AND patient's daughter, Physical Therapist Ms. Joanie Pace (in [place]) on teleconference at bedside, with Hospitalist Dr. Yosef Robertson, for 35 minutes, and all in agreement that patient will continue with parenteral antibiotics to ensure resolution of bacteremia before patient is discharged back to [facility], and that patient's , Joanna Davenport, will call up her 's health insurance company, [employer], to inquire about their Enhanced Community Care Management Program, which is analagous to an outpatient Palliative Care Service. 06/10: patient's , Joanna, has requested PEG insertion, which goes against patient's wishes NOT to have PEG inserted. 06/11: patient's , Joanna, has rescinded PEG insertion, in accordance with patient's wishes NOT to have PEG inserted. Patient subsequently underwent formal Swallow Service evaluation with video swallow with Ms. Nichole Villarreal on 06/11/2024, 11:40am, and which revealed "bolus head in pyriformis, moderate oral-stage dysphagia with NO penetration or aspiration during this study. The patient demonstrated adequate airway protection throughout the study despite some areas of incomplete hyolaryngeal ROM and lack of pharyngeal stripping wave." Ms. Villarreal subsequently recommended that patient be transitioned from NPO to Minced and Moist diet on 06/11/2024. Hence, I complied with Ms. Villarreal's request on 06/11/2024, 10:31am, commencing with the lunch meal on 06/11/2024. 06/12: patient's daughter, Joanie Pace, and her , have arrived from [place], and were apprised of patient's condition, feeling very satisfied with patient's care and condition @ [facility], and anticipating D/C back to [facility] in the next 2 days with augmentin 875mg/125mg PO bid x 10 days to complete antibiotic therapy of Proteus vulgaris-mediated bacteremia. In the interim, patient continues to tolerate minced and moist diet very well on 06/12/2024. 06/10: patient's , Joanna, at bedside, REVERSED her 's wishes and her position on NOT having undergo PEG insertion,and now wants to have a PEG inserted into patient--for nutrition, hydration, and to receive his home- scheduled carbidopa 25mg - levodopa 100mg PO qid, which the patient has not received while in [facility] since admission date 06/07/2024, as patient has failed multiple swallow trials. Hence, patient awaits PEG insertion in the 06/11/2024 am. Admission and Anticipated Discharge Date Admission Date: June 07, 2024 Subjective "I feel good today. No complaints." Review of Systems Review of Systems: Constitutional: Negative for antecedent/coincident fevers, chills, diaphoresis, cough, wheeze, sore throat, hemoptysis, chest pains, palpitations, pleurisy, nausea, vomiting, diarrhea, abdominal pain, pelvic pain, hematemesis, hematochezia, melena, hematuria, dysuria, frequency, urgency, headaches, dizziness, lightheadedness, visual changes, hearing changes, falls, syncope, trauma, travel history, sick contacts, or food/drug ingestions novel or new. All other review of systems are reported as negative by the patient on 06/12/2024. Physical Exam Constitutional: General: Comfortable, coherent, cooperative. Wide awake and alert. Not confused, lethargic, or obtunded. Patient speaks in complete, fluent, and articulate sentences without pause, interruption, cough, or wheeze. HEENT: Normocephalic, atraumatic. Pupils equally round and reactive to light. Extra-ocular muscles intact. No nystagmus, gaze paresis, anisocoria, miosis, mydriasis, hyphema, scleral injection, conjunctivitis, or pterygium. No rhino rrhea or otorrhea. No pharyngeal discharge or erythema. Neck: Supple, no stridor, bruit, goiter, hepatojugular reflux. Jugular venous pressure is estimated to be 8 cm above the sternal angle of Joselo, which is estimated to be 5 cm above the level of the right atrium. Lymph: No anterior/posterior cervical, supraclavicular/infraclavicular, axillary, epitrochlear, or inguinal adenopathy. Chest: Symmetric rise and fall with respirations. Lungs: Clear to auscultation and percussion. No audible expiratory wheeze, egophony, pectoriloquy, increase in tactile fremitus, or flatness/dullness to percussion at the bases. Heart: RRR, S1 and S2 noted. No S3 or S4 summation gallop noted. No tripartite friction rub. Grade II/ early systolic murmur @ LLSB without radiation to the carotids, axilla, or back, and which remains invariant in regards to the respiratory cycle. Abdomen: Soft, non-tender, non-distended. No rebound, guarding, Dawn's sign, or organomegaly. Bowel sounds sounds auscultated in all 4 quadrants. Extremities: No clubbing, cyanosis, or edema. 2+ pedal pulses bilaterally. Skin: No decubitus ulcer, exanthem, or enanthem. Neurology: Alert and oriented to person, place, time, and situation. DTR+ and symmetric. 5/5 motor strength in all 4 extremities, both proximally and distally. No pronator drift. No facial droop. No tremors, tics, or myoclonus. Urology: No thurston. No urethral discharge. Psychiatry: No suicidal ideation. No homicidal ideation. Results & Data Results & Data Vital Signs (Past 12 Hours) Vital Signs Temp Pulse Pulse Resp BP Pulse Ox Pulse Ox 06/12/24 14:22 72 06/12/24 08:00 66 06/12/24 08:00 06/12/24 07:23 36.9 C 69 16 146/67 H 94 06/12/24 05:00 94 06/12/24 03:31 36.9 C 61 18 112/60 95 O2 Del Method O2 Del Method 06/12/24 14:22 06/12/24 08:00 06/12/24 08:00 Room Air 06/12/24 07:23 Room Air 06/12/24 05:00 Room Air 06/12/24 03:31 Room Air Laboratory Results 06/10/24 13:06 Aerobic Blood Culture - Preliminary Blood No growth in Aerobic bottle after 48 hours. Anaerobic Blood Culture - Final 06/10/24 13:18 Aerobic Blood Culture - Preliminary Blood No growth in Aerobic bottle after 48 hours. Anaerobic Blood Culture - Preliminary No growth in Anaerobic bottle after 48 hours. 06/12/24 06/12/24 06/12/24 11:31 07:21 07:03 WBC 5.00 RBC 4.16 L Hgb 12.9 L Hct 38.7 L MCV 93.0 MCH 31.0 MCHC 33.3 RDW Std Deviation 44.7 RDW Coeff of Ramy 13.2 Plt Count 149 MPV 10.6 Immature Gran % (Auto) 1.0 Neut % (Auto) 70.0 Lymph % (Auto) 14.2 Lyman % (Auto) 10.4 Eos % (Auto) 4.0 Baso % (Auto) 0.4 Neut # (Auto) 3.50 Lymph # (Auto) 0.71 L Lyman # (Auto) 0.52 Eos # (Auto) 0.20 Baso # (Auto) 0.02 Immature Gran # (Auto) 0.05 Sodium 144 Potassium 3.8 Chloride 113 H Carbon Dioxide 26 Anion Gap 5 BUN 11 Creatinine 0.95 Est Cr Clr Drug Dosing 55.5 eGFR 76.99 BUN/Creatinine Ratio 11.6 Glucose 91 POC Glucose 90 82 Lactate 0.7 Calcium 9.0 Procalcitonin 0.32 06/11/24 06/11/24 19:56 16:22 WBC RBC Hgb Hct MCV MCH MCHC RDW Std Deviation RDW Coeff of Ramy Plt Count MPV Immature Gran % (Auto) Neut % (Auto) Lymph % (Auto) Lyman % (Auto) Eos % (Auto) Baso % (Auto) Neut # (Auto) Lymph # (Auto) Lyman # (Auto) Eos # (Auto) Baso # (Auto) Immature Gran # (Auto) Sodium Potassium Chloride Carbon Dioxide Anion Gap BUN Creatinine Est Cr Clr Drug Dosing eGFR BUN/Creatinine Ratio Glucose POC Glucose 85 79 Lactate Calcium Procalcitonin PG Care Time/CCT Total # of Minutes Spent Total Time Spent with Patient: Total time spent is greater than 50% in coordination of care (as documented) at patient's floor/unit and/or counseling patient: Coding Level of Care Code 64805 SUB INP/OBS CARE 2/35MIN Diagnoses Sepsis A41.9 Acute renal failure type: unspecified Sepsis acute organ dysfunction status: with acute organ dysfunction Sepsis type: sepsis due to unspecified organism Severe sepsis acute organ dysfunction type: acute renal failure Aortic stenosis I35.0 Mitral regurgitation I34.0 Renal mass N28.89 Irregular heart rhythm I49.9 Ambulatory dysfunction R26.2 Parkinson disease G20 Recurrent UTI (urinary tract infection) N39.0 Hypertension I10 Altered mental status R41.82 Altered mental status type: unspecified BPH w urinary obs/LUTS N40.1; N13.8 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 stage III I12.9; N18.30 Dementia F03.90 (1) Sepsis Acute renal failure type: unspecified Sepsis acute organ dysfunction status: with acute organ dysfunction Sepsis type: sepsis due to unspecified organism Severe sepsis acute organ dysfunction type: acute renal failure (10) Altered mental status Altered mental status type: unspecified Qualified Code(s): R41.82 - Altered mental status, unspecified
[2024-06-12] MEDS: CARBIDOPA/LEVODOPA 25/100MG TAB PO SCH (17:07)
[2024-06-13 06:19] LABS: Basophils # (auto) 0.03 K/uL (0.00-0.20); Basophils % (auto) 0.5 %; Eosinophils # (auto) 0.31 K/uL (0.00-0.50); Eosinophils % (auto) 5.1 %; Hematocrit (blood only) 38.8 % (42.0-52.0); Immature Granulocytes # (auto) 0.11 K/uL (0.01-0.20); Immature Granulocytes % (auto) 1.8 %; Lymphocytes % (auto) 18.1 %; Mean Corpuscular Hgb Conc 33.5 g/dL (32.0-36.0); Mean Corpuscular Volume 92.4 fL (80.0-100.0); Mean Platelet Volume 10.7 fL (9.4-12.4); Monocytes # (auto) 0.63 K/uL (0.11-0.59); Monocytes % (auto) 10.4 %; Neutrophils # (auto) 3.89 K/uL (1.40-6.50); Neutrophils % (auto) 64.1 %; Platelet Count 154 K/uL (130-400); RDW Coefficient of Variation 13.3 % (11.5-14.5); RDW Standard Deviation 44.7 fL (36.4-46.3); White Blood Count 6.07 K/ul (4.8-10.8)
[2024-06-13 06:30] LABS: BUN Creatinine Ratio 17.6 (10-20); Calcium 9.1 mg/dl (8.6-10.3); Creatinine Clr Calc Pharmacy 57.9 ml/min; Potassium 3.9 mmol/L (3.5-5.1)
--- NOTE | 2024-06-13 15:17 | Hospitalist Progress Note ---
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 as well as dysphagia to solids and liquids, renal mass described as "lobular partially exophytic heterogeneously enhancing mass within the superior pole of the right kidney posteriorly adjacent to several cysts which measures approximately 3.0 x 4.0 x 3.4 cm, generally unchanged from the prior study and also similar in appearance dating back to the 07/26/2022 exam" (as reported on 03/23/2024 CT abd/pelvis with/without IV contrast), hyperlipidemia, HTN, "irregular heart rhythm", myxomatous mitral valve with bileaflet prolapse and mild mitral regurgitation (as noted on 10/07/2022 TTE), ambulatory dysfunction, and chronic urinary retention with indwelling thurston catheter in situ for more than 1 month without exchange/replacement with new thurston catheter, who came to [facility] ER on 06/07/2024 with urinary retention. Patient was subsequently admitted to the inpatient hospitalist service @ [facility] on 06/07/2024, after becoming hypotensive, tachycardic and febrile in [facility] ER with acute urinary retention with pre-existing, indwelling thurston catheter. Patient had approximately 800 cc of retained urine with thurston not draining any urine. Subsequently, Urology Service of Dr. Keshawn Jin was able to remove the pre- existing, indwelling thurston under pressure (06/06/2024, 10:15pm) in [facility] ER. Initially, the plan was to discharge patient back to [facility] on 06/07/2024, but the patient became febrile with chills. Patient was subsequently admitted to the inpatient hospitalist service @ [facility] on 06/07/2024 with the following diagnoses: 1. Sepsis due to catheter-associated UTI with hematogenous dissemination of MRSA and ceftriaxone-resistant Proteus mirabilis (e.g., MRSA bacteremia as noted on 06/06/2024, 11:54pm blood culture and on 06/07/2024, 1:31am blood culture; Proteus mirabilis bacteremia as noted on 06/06/2024, 11:54pm blood culture). 2. Acute toxic metabolic encephalopathy, due to #1 above. 3. Acute hypoglycemia with admission glucose 82 mg/dL (06/07/2024, 8:31pm), due to #1 above. #Sepsis due to catheter-associated UTI with hematogenous dissemination of MRSA and ceftriaxone-resistant Proteus mirabilis (e.g., MRSA bacteremia as noted on 06/06/2024, 11:54pm blood culture and on 06/07/2024, 1:31am blood culture; Proteus mirabilis bacteremia as noted on 06/06/2024, 11:54pm blood culture) / acute toxic metabolic encephalopathy, RESOLVING well on vancomycin 1.5g IV daily (06/10/2024, 5:00am). I also started patient on cefepime 2g IV q12 (06/09/2024, 11:02am). - suspect urinary source given proximity of thurston manipulation - CXR shows mild blunting of left costophrenic angle, likely due to pleural effusion / thickening, ?opacification in left lower lung zone (overlying soft tissue shadow vs infection) - UA: >50 wbc, >20 RBC (in the setting of forced thurston removal), 6-10 epithelial cells, 4+ bacteria - cf., patient has had multiple UTIs in the last year with significant antibiotic resistance patterns - patient was initially started on daptomycin 600mg IV daily x 2 doses (06/07/2024, 4:16am; 06/08/2024, 3:55am), then zosyn 4.5g IV x 1 dose (06/07/2024, 4:19am), then zosyn 4.5g IV q8 x 4 doses (06/07/2024, 9:43am; 06/07/2024, 5:00pm; 06/08/2024, 1:53am; 06/08/2024, 9:27am), then ceftriaxone 2mg IV daily (06/07/2024, 1:43am; 06/08/2024, 6:36pm) as patient's WBC has declined to normal from 15.82 (06/07/2024, 6:41am) to 8.79 (06/08/2024, 6:14am); check repeat WBC w/diff in the 06/13/2024 am. - lactate subsequently declined to normal from 2.6 mmol/L (06/07/2024, 1:34am) to 1.3 mmol/L (06/07/2024, 4:26am)(06/08/2024, 9:32am) to 1.1 mmol/L (06/09/2024, 7:29am) on ceftriaxone 2g IV daily; check repeat lactic acid in the 06/11/2024 am. - procalcitonin initially increased from 3.03 ng/mL (06/07/2024, 6:41am) to 3.28 ng/mL (06/08/2024, 6:14am), before declining to 1.85 ng/mL (06/09/2024, 7:29am) on ceftriaxone 2g IV daily; check repeat procalcitonin in the 06/13/2024 am. Based on the declining lactate and procalcitonin level trends while patient received monotherapy utilizing ceftriaxone 2g IV daily x 4 doses, I am not certain if patient actually suffers from MRSA bacteremia as ceftriaxone has no activity against MRSA. In addition, ceftriaxone has no activity against ceftriaxone-resistant Proteus mirabilis (e.g., bacteremia as noted on 06/06/2024, 11:54pm blood culture). Subsequently, I opted to D/C ceftriaxone 2g IV daily on 06/09/2024, before patient could receive a dose of ceftriaxone 2g IV daily on 06/09/2024, 9:00pm. In its place, I started patient on vancomycin 2g IV x 1 dose (06/09/2024, 11:11am), followed by vancomycin 1.5g IV daily (06/10/2024, 5:00am). I also started patient on cefepime 2g IV q12 (06/09/2024, 11:02am). I will check vitals, genito-urinary exam, WBC w/diff, lactic acid, procalcitonin, and repeat blood cultures (to be drawn on 06/10/2024 am) in the 06/14/2024 am. #Acute hypoglycemia with admission glucose 82 mg/dL (06/07/2024, 8:31pm), RESOLVED, due to #1 above. Despite multiple attempts to treat patient's acute hypoglycemia with apple juice, patient remained persistently hypoglycemic: cf., glucose 71 mg/dL (06/08/2024, 12:10pm). cf., glucose 79 mg/dL (06/08/2024, 2:02pm). cf., glucose 68 mg/dL (06/08/2024, 6:00pm). cf., glucose 67 mg/dL (06/08/2024, 6:01pm). cf., glucose 52 mg/dL (06/08/2024, 7:03pm). cf., glucose 62 mg/dL (06/08/2024, 7:04pm). Consequently, I started patient on 1 liter of 0.9% D5-0.9% NS @ 76 mL/hr (06/08/2024, 7:15pm), based on a delivery rate of 1 mL of D5-0.9% NS per kg of body weight per hour, and a body weight of 76.2 kg. Subsequently, patient's glucose levels started to increase: cf., glucose 76 mg/dL (06/08/2024, 7:34pm). cf., glucose 109 mg/dL (06/08/2024, 8:46pm). cf., glucose 118 mg/dL (06/09/2024, 7:29am). Subsequently, I started patient on 1 liter of 0.9% D5-0.9% NS @ 78 mL/hr (06/09/2024, 9:22am), based on a delivery rate of 1 mL of D5-0.9% NS per kg of body weight per hour, and a body weight of 77.7 kg. Subsequently, patient continues to undergo POC glucose q6h while in [facility]. cf., glucose 114 mg/dL (06/10/2024, 6:37am). cf., glucose 123 mg/dL (06/11/2024, 4:55am). cf., glucose 90 mg/dL (06/12/2024, 11:31am). cf., glucose 97 mg/dL (06/13/2024, 5:51am). Hence, acute hypoglycemia has RESOLVED. --------- #BPH w/LUTS/Renal Mass/CKD-III - 3-way thurston in for possible CBI given traumatic thurston removal, reddish urine but no clots; thurston catheter removed on 06/11/2024 - Flush as needed - Renal mass being followed by urology - creatinine at baseline - Continue finasteride when tolerating PO #Irregular heat rhythm/afib/MR/ - Does not appear to be on AC - Continue metoprolol, ASA once pt is able to take PO - Monitor volume status #Ambulatory Dysfunction - PT/OT eval and treat - Uses assistive devices at baseline - fall precautions #Parkinson's Disease with dementia - restart Sinemet 25/100mg PO qid (06/12/2024, 3:32pm). - patient tolerates minced and moist diet very well - ENGINE CLEANER evaluation (06/11/2024, 11:40am) which revealed "bolus head in pyriformis, moderate oral-stage dysphagia with NO penetration or aspiration during this study. The patient demonstrated adequate airway protection throughout the study despite some areas of incomplete hyolaryngeal ROM and lack of pharyngeal strip ping wave." Ms. Villarreal subsequently recommended that patient be transitioned from NPO to Minced and Moist diet on 06/11/2024. Hence, I complied with Ms. Villarreal's request on 06/11/2024, 10:31am, commencing with the lunch meal on 06/11/2024. Stay tuned. - aspiration precautions - delirium precautions (Raising blinds during the day, closing at night | Frequent re-orientation | Contact with family/friends | Explaining procedures/nursing care measures prior to physical contact | Correct any hearing and visual impairments_ Code status: DNR/DNI - reviewed POLST form provided by halfway DVT prophylaxis: SCDs, if no hematuria tomorrow, hep subq to be initiated Isolation: none Disposition: PCU 06/07: pt's and daughter / her at bedside 06/08: patient's , Joanna, at bedside, with Hospitalist Dr. Yosef Robertson 06/09: patient's , Joanna, and Palliative Care Ms. Joanna Deluca, at bedside, AND patient's daughter, Physical Therapist Joanie Sanjeev (in [place]) on teleconference at bedside, with Hospitalist Dr. Yosef Robertson, for 35 minutes, and all in agreement that patient will continue with parenteral antibiotics to ensure resolution of bacteremia before patient is discharged back to [facility], and that patient's , Joanna Davenport, will call up her 's health insurance company, [employer], to inquire about their Enhanced Community Care Management Program, which is analagous to an outpatient Palliative Care Service. 06/10: patient's , Joanna, has requested PEG insertion, which goes against patient's wishes NOT to have PEG inserted. 06/11: patient's , Joanna, has rescinded PEG insertion, in accordance with patient's wishes NOT to have PEG inserted. Patient subsequently underwent formal Swallow Service evaluation with video swallow with Ms. Nichole Villarreal on 06/11/2024, 11:40am, and which revealed "bolus head in pyriformis, moderate oral-stage dysphagia with NO penetration or aspiration during this study. The patient demonstrated adequate airway protection throughout the study despite some areas of incomplete hyolaryngeal ROM and lack of pharyngeal stripping wave." Phil subsequently recommended that patient be transitioned from NPO to Minced and Moist diet on 06/11/2024. Hence, I complied with Ms. Villarreal's request on 06/11/2024, 10:31am, commencing with the lunch meal on 06/11/2024. 06/12: patient's daughter, Joanie Pace, and her , have arrived from [place], and were apprised of patient's condition, feeling very satisfied with patient's care and condition @ [facility], and anticipating D/C back to [facility] in the next 1 or 2 days with augmentin 875mg/125mg PO bid x 10 days (06/14/2024 through 06/23/2024) to complete antibiotic therapy of Proteus vulgaris-mediated bacteremia. In the interim, patient continues to tolerate minced and moist diet very well on 06/12/2024. 06/13: patient's daughter, Joanie Pace, and her , apprised of patient's condition, feeling very satisfied with patient's care and condition @ [facility], and anticipating D/C back to [facility] in the next 1 or 2 days with augmentin 875mg/125mg PO bid x 10 days (06/14/2024 through 06/23/2024) to complete antibiotic therapy of Proteus vulgaris-mediated bacteremia. In the interim, patient continues to tolerate minced and moist diet very well on 06/13/2024. Admission and Anticipated Discharge Date Admission Date: June 07, 2024 Subjective "I feel fine. No problem." Review of Systems Review of Systems: Constitutional: Negative for antecedent/coincident fevers, chills, diaphoresis, cough, wheeze, sore throat, hemoptysis, chest pains, palpitations, pleurisy, nausea, vomiting, diarrhea, abdominal pain, pelvic pain, hematemesis, hematochezia, melena, hematuria, dysuria, frequency, urgency, headaches, dizziness, lightheadedness, visual changes, hearing changes, falls, syncope, trauma, travel history, sick contacts, or food/drug ingestions novel or new. All other review of systems are reported as negative by the patient on 06/13/2024. Physical Exam Constitutional: General: Comfortable, coherent, cooperative. Wide awake and alert. Not confused, lethargic, or obtunded. Patient speaks in complete, fluent, and articulate sentences without pause, interruption, cough, or wheeze. HEENT: Normocephalic, atraumatic. Pupils equally round and reactive to light. Extra-ocular muscles intact. No nystagmus, gaze paresis, anisocoria, miosis, mydriasis, hyphema, scleral injection, conjunctivitis, or pterygium. No rhinorrhea or otorrhea. No pharyngeal discharge or erythema. Neck: Supple, no stridor, bruit, goiter, hepatojugular reflux. Jugular venous pressure is estimated to be 8 cm above the sternal angle of Joselo, which is estimated to be 5 cm above the level of the right atrium. Lymph: No anterior/posterior cervical, supraclavicular/infraclavicular, axillary, epitrochlear, or inguinal adenopathy. Chest: Symmetric rise and fall with respirations. Lungs: Clear to auscultation and percussion. No audible expiratory wheeze, egophony, pectoriloquy, increase in tactile fremitus, or flatness/dullness to percussion at the bases. Heart: RRR, S1 and S2 noted. No S3 or S4 summation gallop noted. No tripartite friction rub. Grade II/ early systolic murmur @ LLSB without radiation to the carotids, axilla, or back, and which remains invariant in regards to the respiratory cycle. Abdomen: Soft, non-tender, non-distended. No rebound, guarding, Dawn's sign, or organomegaly. Bowel sounds sounds auscultated in all 4 quadrants. Extremities: No clubbing, cyanosis, or edema. 2+ pedal pulses bilaterally. Skin: No decubitus ulcer, exanthem, or enanthem. Neurology: Alert and oriented to person, place, time, and situation. DTR+ and symmetric. 5/5 motor strength in all 4 extremities, both proximally and distally. No pronator drift. No facial droop. No tremors, tics, or myoclonus. Urology: No thurston. No urethral discharge. Psychiatry: No suicidal ideation. No homicidal ideation. Results & Data Results & Data Vital Signs (Past 12 Hours) Vital Signs Temp Pulse Resp BP Pulse Ox O2 Del Method 06/13/24 12:00 36.5 C 74 20 119/71 96 Room Air 06/13/24 08:20 36.6 C 70 18 122/68 97 Room Air 06/13/24 05:34 Room Air 06/13/24 04:20 36.5 C 63 17 134/72 96 Room Air Laboratory Results 06/07/24 16:57 Aerobic Blood Culture - Final Blood No growth in Aerobic bottle after 5 days. Anaerobic Blood Culture - Final No growth in Anaerobic bottle after 5 days. 06/07/24 16:57 Aerobic Blood Culture - Final Blood No growth in Aerobic bottle after 5 days. Anaerobic Blood Culture - Final No growth in Anaerobic bottle after 5 days. 06/10/24 13:06 Aerobic Blood Culture - Preliminary Blood No growth in Aerobic bottle after 48 hours. Anaerobic Blood Culture - Final 06/10/24 13:18 Aerobic Blood Culture - Preliminary Blood No growth in Aerobic bottle after 48 hours. Anaerobic Blood Culture - Preliminary No growth in Anaerobic bottle after 48 hours. 06/13/24 06/13/24 05:54 05:51 WBC 6.07 RBC 4.20 L Hgb 13.0 L Hct 38.8 L MCV 92.4 MCH 31.0 MCHC 33.5 RDW Std Deviation 44.7 RDW Coeff of Ramy 13.3 Plt Count 154 MPV 10.7 Immature Gran % (Auto) 1.8 Neut % (Auto) 64.1 Lymph % (Auto) 18.1 [place] % (Auto) 10.4 Eos % (Auto) 5.1 Baso % (Auto) 0.5 Neut # (Auto) 3.89 Lymph # (Auto) 1.10 L [place] # (Auto) 0.63 H Eos # (Auto) 0.31 Baso # (Auto) 0.03 Immature Gran # (Auto) 0.11 Sodium 142 Potassium 3.9 Chloride 110 H Carbon Dioxide 28 Anion Gap 4 BUN 16 Creatinine 0.91 Est Cr Clr Drug Dosing 57.9 eGFR 81.07 BUN/Creatinine Ratio 17.6 Glucose 97 Lactate 0.8 Calcium 9.1 Procalcitonin 0.18 PG Care Time/CCT Total # of Minutes Spent Total Time Spent with Patient: Total time spent is greater than 50% in coordination of care (as documented) at patient's floor/unit and/or counseling patient: Coding Level of Care Code 08276 SUB INP/OBS CARE 235MIN Diagnoses Sepsis A41.9 Acute renal failure type: unspecified Sepsis acute organ dysfunction status: with acute organ dysfunction Sepsis type: sepsis due to unspecified organism Severe sepsis acute organ dysfunction type: acute renal failure Aortic stenosis I35.0 Mitral regurgitation I34.0 Renal mass N28.89 Irregular heart rhythm I49.9 Ambulatory dysfunction R26.2 Parkinson disease G20 Recurrent UTI (urinary tract infection) N39.0 Hypertension I10 Altered mental status R41.82 Altered mental status type: unspecified BPH w urinary obs/LUTS N40.1; N13.8 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 stage III I12.9; N18.30 Dementia F03.90 (1) Sepsis Acute renal failure type: unspecified Sepsis acute organ dysfunction status: with acute organ dysfunction Sepsis type: sepsis due to unspecified organism Severe sepsis acute organ dysfunction type: acute renal failure (10) Altered mental status Altered mental status type: unspecified Qualified Code(s): R41.82 - Altered mental status, unspecified
[2024-06-14] MEDS ORDERED: VANCOMYCIN LEVEL ONE (04:30)
[2024-06-14 07:03] LABS: Basophils # (auto) 0.05 K/uL (0.00-0.20); Basophils % (auto) 0.8 %; Eosinophils # (auto) 0.29 K/uL (0.00-0.50); Eosinophils % (auto) 4.5 %; Hematocrit (blood only) 38.4 % (42.0-52.0); Hemoglobin 12.7 g/dl (14.0-18.0); Immature Granulocytes # (auto) 0.14 K/uL (0.01-0.20); Immature Granulocytes % (auto) 2.2 %; Lymphocytes % (auto) 17.1 %; Mean Corpuscular Hemoglobin 30.5 pg (25.0-34.0); Mean Corpuscular Hgb Conc 33.1 g/dL (32.0-36.0); Mean Corpuscular Volume 92.1 fL (80.0-100.0); Mean Platelet Volume 10.5 fL (9.4-12.4); Monocytes # (auto) 0.57 K/uL (0.11-0.59); Monocytes % (auto) 8.9 %; Neutrophils # (auto) 4.27 K/uL (1.40-6.50); Neutrophils % (auto) 66.5 %; Platelet Count 172 K/uL (130-400); RDW Coefficient of Variation 13.4 % (11.5-14.5); RDW Standard Deviation 45.1 fL (36.4-46.3); Red Blood Count 4.17 M/uL (4.70-6.10); White Blood Count 6.42 K/ul (4.8-10.8)
[2024-06-14 07:53] LABS: BUN Creatinine Ratio 20.5 (10-20); Calcium 9.3 mg/dl (8.6-10.3); Creatinine Clr Calc Pharmacy 63.5 ml/min; Potassium 3.7 mmol/L (3.5-5.1)
[2024-06-14 12:09] VITALS: BP 130/66; PULSE 81; RESP 16; TEMP 97.9; O2SAT 95
--- NOTE | 2024-06-14 14:41 | Discharge Summary ---
Date of Service June 14, 2024 Admission HPI Per Admitting Provider 88 yo male PMHx BPH w/LUTS, renal mass, CKD-III, Parkinson's disease, HTN, HLD, "irregular heart rhythm", MR, , Dementia, ambulatory dysfunction admitted after becoming hypotensive, tachycardic and febrile in the ED. He initially presented to the emergency department from [facility] due to a non-draining thurston. He was retaining 600-800cc on bladder scan. There was difficulty removing the thurston, balloon was unable to be deflated. Urology saw the patient and removed the thurston under force with balloon inflated and there was trauma to the urethra. He was being prepared for discharge when he became febrile, tachycardic and was having rigors. Temp was checked and found to be 39C. Pt not interactive, somnolent but arousable. HPI/ROS limited due to this. VSS at time of admission. ED Course: Thurston replaced Labs reveal: lactate 2.6, UA appears infected but this is chronic, K 5.0 CXR: ?infiltrate in LLL BCx and UCx sent Given 1g IV Tylenol, dose of CTX, total of 2.5L NSS which meets sepsis bolus Admission Exam (Per Admitting) Constitutional The patient is awake, alert and confused HEENT--PERRL, EOMI, mucous membranes and oropharynx mildly dry Neck--supple. No JVD. No bruits. Thyroid normal, trachea midline, no adenopathy. Heart--normal S1 and S2. No murmurs, rubs or gallops. Lungs--clear bilaterally, no respiratory distress, no accessory muscle use. Abdomen--normal bowel sounds and soft. Extremities--no cyanosis or clubbing. No edema. Dermatologic--normal skin turgor, normal color, no abnormal lymph nodes, no rash. Neurologic--cranial nerves II through XII grossly intact. Rheumatologic--normal range of motion. Psychiatric--normal affect. Discharge Data Consultations 06/07/24 02:08 ED Decision to Admit Stat 06/08/24 13:46 Consult Palliative Care Routine 06/10/24 15:34 Consult Gastroenterology Routine Hospital Course (1) Sepsis: (2) Aortic stenosis: (3) Mitral regurgitation: (4) Renal mass: (5) Irregular heart rhythm: (6) Ambulatory dysfunction: (7) Parkinson disease: (8) Recurrent UTI (urinary tract infection): (9) Hypertension: (10) Altered mental status: (11) BPH w urinary obs/LUTS: (12) 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 stage III: (13) Dementia: Plan 88 years old male with PMH of DNR/DNI @ [facility], 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, 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 as well as dysphagia to solids and liquids, renal mass described as "lobular partially exophytic heterogeneously enhancing mass within the superior pole of the right kidney posteriorly adjacent to several cysts which measures approximately 3.0 x 4.0 x 3.4 cm, generally unchanged from the prior study and also similar in appearance dating back to the 07/26/2022 exam" (as reported on 03/23/2024 CT abd/pelvis with/without IV contrast), hyperlipidemia, HTN, "irregular heart rhythm", myxomatous mitral valve with bileaflet prolapse and mild mitral regurgitation (as noted on 10/07/2022 TTE), ambulatory dysfunction, and chronic urinary retention with indwelling thurston catheter in situ for more than 1 month without exchange/replacement with new thurston catheter, who came to [facility] ER on 06/07/2024 with urinary retention. Patient was subsequently admitted to the inpatient hospitalist service @ [facility] on 06/07/2024, after becoming hypotensive, tachycardic and febrile in [facility] ER with acute urinary retention with pre-existing, indwelling thurston catheter. Patient had approximately 800 cc of retained urine with thurston not draining any urine. Subsequently, Urology Service of Dr. Keshawn Jin was able to remove the pre- existing, indwelling thurston under pressure (06/06/2024, 10:15pm) in [facility] ER. Initially, the plan was to discharge patient back to [facility] on 06/07/2024, but the patient became febrile with chills. Patient was subsequently admitted to the inpatient hospitalist service @ [facility] on 06/07/2024 with the following diagnoses: 1. Sepsis due to catheter-associated UTI with hematogenous dissemination of MRSA and ceftriaxone-resistant Proteus mirabilis (e.g., MRSA bacteremia as noted on 06/06/2024, 11:54pm blood culture and on 06/07/2024, 1:31am blood culture; Proteus mirabilis bacteremia as noted on 06/06/2024, 11:54pm blood culture). 2. Acute toxic metabolic encephalopathy, due to #1 above. 3. Acute hypoglycemia with admission glucose 82 mg/dL (06/07/2024, 8:31pm), due to #1 above. #Sepsis due to catheter-associated UTI with hematogenous dissemination of MRSA and ceftriaxone-resistant Proteus mirabilis Resolved Completed a course of IV antibiotics Discharge on Liquid Augmentin for 10 more days #Acute hypoglycemia with admission glucose 82 mg/dL (06/07/2024, 8:31pm), RESOLVED, due to #1 above. Hence, acute hypoglycemia has RESOLVED. MRSA bacteremia Will prescribe PO Linezolid 400mg liquid for 10 more days #BPH w/LUTS/Renal Mass/CKD-III - 3-way thurston in for possible CBI given traumatic thurston removal, reddish urine but no clots; thurston catheter removed on 06/11/2024 - Flush as needed - Renal mass being followed by urology - creatinine at baseline - Continue finasteride when tolerating PO #Irregular heat rhythm/afib/MR/ - Does not appear to be on AC - Continue metoprolol, ASA once pt is able to take PO - Monitor volume status #Ambulatory Dysfunction - PT/OT eval and treat - Uses assistive devices at baseline - fall precautions #Parkinson's Disease with dementia - restart Sinemet 25/100mg PO qid (06/12/2024, 3:32pm). - patient tolerates minced and moist diet very well - [employer] evaluation (06/11/2024, 11:40am) which revealed "bolus head in pyriformis, moderate oral-stage dysphagia with NO penetration or aspiration during this study. The patient demonstrated adequate airway protection throughout the study despite some areas of incomplete hyolaryngeal ROM and lack of pharyngeal stripping wave." - aspiration precautions - delirium precautions (Raising blinds during the day, closing at night | Frequent re-orientation | Contact with family/friends | Explaining procedures/nursing care measures prior to physical contact | Correct any hearing and visual impairments_ Code status: DNR/DNI - reviewed POLST form provided by alf DVT prophylaxis: SCDs, if no hematuria tomorrow, hep subq to be initiated Isolation: none Disposition: PCU 06/13: patient's daughter, Joanie Pace, and her , apprised of patient's condition, feeling very satisfied with patient's care and condition @ [facility], and anticipating D/C back to [facility] in the next 1 or 2 days with augmentin 875mg/125mg PO bid x 10 days (06/14/2024 through 06/23/2024) to complete antibiotic therapy of Proteus vulgaris-mediated bacteremia. In the interim, patient continues to tolerate minced and moist diet very well on 06/13/2024. Coding Level of Care Code 91119 INP/OBS DISCH >30 MIN Diagnoses Sepsis A41.9 Acute renal failure type: unspecified Sepsis acute organ dysfunction status: with acute organ dysfunction Sepsis type: sepsis due to unspecified organism Severe sepsis acute organ dysfunction type: acute renal failure Aortic stenosis I35.0 Mitral regurgitation I34.0 Renal mass N28.89 Irregular heart rhythm I49.9 Ambulatory dysfunction R26.2 Parkinson disease G20 Recurrent UTI (urinary tract infection) N39.0 Hypertension I10 Altered mental status R41.82 Altered mental status type: unspecified BPH w urinary obs/LUTS N40.1; N13.8 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 stage III I12.9; N18.30 Dementia F03.90 Time Spent (min) 35
== END 2024-06-14 15:12 | DRG 698 ==
LOC: ED 21:01 → SUATTDRO 06-07 02:51 → EDINP 06-07 02:51 → 2S 06-07 03:40